=== PATIENT | female | born 1965 | race Caucasian/White ===

== ENCOUNTER 2017-12-23 07:58 | Emergency (ER) | payer BC ==
[~2017-12-23] VITALS: Ht 160 cm; Wt 109.5 kg
[2017-12-23 08:11] VITALS: TEMP 36.6; Ht 160 cm; Wt 109.5 kg
[2017-12-23 08:12] VITALS: O2SAT 97
[2017-12-23] MEDS ORDERED: GLIP-197 PO (08:32)
[2017-12-23] MEDS ORDERED: GLC/500 PO (08:32)
[2017-12-23] MEDS ORDERED: ROSU5TAB PO (08:32)
[2017-12-23] MEDS ORDERED: VALS160T58 PO (08:32)
[2017-12-23] MEDS ORDERED: LEVO25TA PO (08:32)
[2017-12-23] MEDS ORDERED: METO100T44 PO (08:32)
[2017-12-23 08:36] LABS: BASO % 0.3 %; BASO ABS # 0.02 K/uL (0-0.2); EOS % 2.5 %; EOS ABS # 0.19 K/uL (0-0.5); HEMOGLOBIN 13.4 g/dL (12.0-16.0); LYMPH % 17.2 %; LYMPH ABS # 1.32 K/uL (1.2-3.4); MEAN CELL VOLUME 87.4 fL (80-100); MEAN CORPUSCULAR HGB CONC 34.4 g/dl (32-36); MONO % 11.2 %; MONO ABS # 0.86 K/uL (0.11-0.59); NEUT % 67.5 %; NUCLEATED RED BLOOD CELL ABS 0.02 K/uL (0-0); PLATELET COUNT 264 K/uL (130-400); RED CELL DISTRIBUTION WIDTH CV 15.2 % (11.5-14.5); RED CELL DISTRIBUTION WIDTH SD 48.8 fL (36.4-46.3); WHITE BLOOD COUNT 7.69 K/uL (4.8-10.8)
--- NOTE | 2017-12-23 09:08 | EMERGENCY ROOM VISIT NOTE ---
History First contact with patient: 08:03 (Kiera Melendez M.D.) First contact with patient: 08:38 (Jeff Brown D.O.) Chief Complaint: HYPERTENSION Stated Complaint: HIGH BLOOD PRESSURE History of Present Illness 52F with a PMHx of hypothyroidism, HTN, DM2 who presents to the Emergency Room with complaints of facial flushing starting this morning around 3am. She feels that her blood pressure is elevated because in the doctors office she gets flushed whenever her blood pressure is check and it always come back high. Patient states she takes her BP meds regularly. Last took her meds around 4am today. She was recently diagnosed with DM2 and started on Metformin and Glipizide. She also states that her left arm felt "different", no numbness, tingling or pain, she just opens and closes it more often starting today. Patient also noticed a red kiera under her left eye which wasn't there yesterday. She did have a BM this AM, is not coughing, denies any significant straining with BM. Pt denies CP, denies SOB, denies HINES, denies photosensitivity. OBGYN: Gets regular periods, denies ever having menopausal symptoms. SHx: former smoker , no marijuana, no cocaine, does have 2 drinks of hard liquor per night and didn't skip her drinks yesterday evening. (Kiera Melendez M.D.) Review of Systems See HPI for pertinent positives and negatives. A total of ten systems were reviewed and were otherwise negative. Constitutional: No fever, No chills ENT: No hearing loss Respiratory: No cough, No sputum, No wheezing, No shortness of breath Cardiovascular: No chest pain Abdomen: No pain, No nausea, No vomiting, No diarrhea, No constipation Musculoskeletal: No joint pain, No muscle pain, No swelling, No calf pain Genitourinary - Female: No dysuria, No urinary frequency, No urinary urgency Neurologic: No memory loss, No weakness, No numbness/tingling, No vertigo, No balance problems Endocrine: No fatigue Integumentary: No rash (Kiera Melendez M.D.) Social History Smoking Status: Never Smoker (Kiera Melendez M.D.) Current/Historical Medications Scheduled Glipizide (Glipizide Er), 1 TAB PO AC Levothyroxine Sodium (Synthroid), 25 MCG PO DAILY Metformin Hcl (Glucophage), 500 MG PO QID Metoprolol Succ (Toprol Xl) (Toprol-Xl ), 100 MG PO DAILY Rosuvastatin Calcium (Crestor), 5 MG PO 2XWK Valsartan/Hctz (Diovan Hct 160MG/12.5MG), 2 TAB PO DAILY Physical Exam Vital Signs Date Time Temp Pulse Resp B/P (MAP) Pulse Ox O2 Delivery O2 Flow Rate FiO2 12/23/17 09:14 69 18 171/98 97 Room Air 12/23/17 08:50 78 18 188/110 97 Room Air 12/23/17 08:45 66 12/23/17 08:26 82 12/23/17 08:12 97 Room Air 12/23/17 08:11 36.6 83 18 224/119 97 Room Air (Jeff Brown D.Roland) Physical Exam Gen: No acute distress. HEENT: Head - normocephalic and atraumatic. There is a linear area of ecchymosis medial to the left eye. Pupils are equal, round, and reactive to light. Extraocular eye muscles are intact and sclera are anicteric. Ears - bilaterally patent canals with noninjected tympanic membranes and no evidence of hemotympanum. Nose - moist nasal mucosa without discharge. Mouth - moist buccal mucosa. Oropharynx is nonerythematous and there is no tonsillar exudate or edema noted. Neck: Supple; no JVD, nuchal rigidity, cervical lymphadenopathy, or auscultated bruits. Heart: Regular rate and rhythm. There is a normal S1 and S2 with no murmurs, clicks, or gallops appreciated. Lungs: Clear to auscultation bilaterally with no wheezes, rales, or rhonchi. Abdomen: Soft, completely nontender, nondistended, with good bowel sounds. There are no palpable pulsatile masses or hepatosplenomegaly. There is no guarding, rigidity, or rebound noted. Extremities: No evidence of cyanosis, clubbing, or edema. There are easily palpable peripheral pulses. Neuro:The patient is awake and alert, oriented to day, time, and place. Muscle strength is 5/5 in all 4 extremities. The patient has equal network associate strength and equal pedal push and pull. There are no cerebellar signs. Cranial nerves intact. Sensation intact to light touch over the lower extremities bilaterally. (Kiera Melendez M.D.) Medical Decision & Procedures ER Provider Diagnostic Interpretation: CHEST ONE VIEW PORTABLE HISTORY: 52 years-old Female chronic HTN, eval for cardiomegaly chronic hypertension COMPARISON: None available TECHNIQUE: Portable AP view of the chest FINDINGS: Cardiac silhouette appears mildly enlarged. No pneumothorax, pleural effusion, focal airspace consolidation or overt pulmonary edema. Mild right hemidiaphragm elevation with subsegmental right basilar atelectasis. Bones of the chest appear grossly intact. IMPRESSION: 1. No acute process of the chest. 2. Mild enlargement of the cardiac silhouette, likely accentuated by AP technique. (Kiera Melendez M.D.) Laboratory Results 12/23/17 08:15 Red Blood Count 4.46, Mean Corpuscular Volume 87.4, Mean Corpuscular Hemoglobin 30.0, Mean Corpuscular Hemoglobin Concent 34.4, Mean Platelet Volume 10.0, Neutrophils (%) (Auto) 67.5, Lymphocytes (%) (Auto) 17.2, Monocytes (%) (Auto) 11.2, Eosinophils (%) (Auto) 2.5, Basophils (%) (Auto) 0.3, Neutrophils # (Auto ) 5.20, Lymphocytes # (Auto) 1.32, Monocytes # (Auto) 0.86, Eosinophils # (Auto ) 0.19, Basophils # (Auto) 0.02 12/23/17 08:15 Test 12/23/17 08:15 12/23/17 08:20 White Blood Count 7.69 K/uL (4.8-10.8) Red Blood Count 4.46 M/uL (4.2-5.4) Hemoglobin 13.4 g/dL (12.0-16.0) Hematocrit 39.0 % (37-47) Mean Corpuscular Volume 87.4 fL (80-100) Mean Corpuscular Hemoglobin 30.0 pg (25-34) Mean Corpuscular Hemoglobin Concent 34.4 g/dl (32-36) Platelet Count 264 K/uL (130-400) Mean Platelet Volume 10.0 fL (7.4-10.4) Neutrophils (%) (Auto) 67.5 % Lymphocytes (%) (Auto) 17.2 % Monocytes (%) (Auto) 11.2 % Eosinophils (%) (Auto) 2.5 % Basophils (%) (Auto) 0.3 % Neutrophils # (Auto) 5.20 K/uL (1.4-6.5) Lymphocytes # (Auto) 1.32 K/uL (1.2-3.4) Monocytes # (Auto) 0.86 K/uL (0.11-0.59) Eosinophils # (Auto) 0.19 K/uL (0-0.5) Basophils # (Auto) 0.02 K/uL (0-0.2) RDW Standard Deviation 48.8 fL (36.4-46.3) RDW Coefficient of Variation 15.2 % (11.5-14.5) Immature Granulocyte % (Auto) 1.3 % Immature Granulocyte # (Auto) 0.10 K/uL (0.00-0.02) Nucleated RBC Absolute Count (auto) 0.02 K/uL (0-0) Nucleated Red Blood Cells % 0.2 % Anion Gap 8.0 mmol/L (3-11) Est Creatinine Clear Calc Drug Dose 83.3 ml/min Estimated GFR () 79.9 Estimated GFR (Non- 69.0 BUN/Creatinine Ratio 12.2 (10-20) Calcium Level 8.5 mg/dl (8.5-10.1) Total Bilirubin 0.6 mg/dl (0.2-1) Aspartate Amino Transf (AST/SGOT) 75 U/L (15-37) Alanine Aminotransferase (ALT/SGPT) 96 U/L (12-78) Alkaline Phosphatase 127 U/L (45-117) Total Protein 8.2 gm/dl (6.4-8.2) Albumin 3.6 gm/dl (3.4-5.0) Globulin 4.6 gm/dl (2.5-4.0) Albumin/Globulin Ratio 0.8 (0.9-2) Thyroid Stimulating Hormone (TSH) 4.400 uIu/ml (0.300-4.500) Bedside Troponin I < 0.030 ng/ml (0-0.045) (Mishock,Jeff, D.O.) Medical Decision The patient's care and disposition was discussed with Dr. Brown, Attending ED Physician. This is a 52F with flushing Differential diagnosis include menopause, hypertensive urgency, hypertensive emergency, benign hypertension, cardiovascular pathology, pheochromocytoma, electrolyte abnormality, renal disease, endorgan damage, as well as others were entertained. Triage Nursing notes were reviewed. ED Course included an extensive history and physical exam, labs and Chest X-ray. 8:15 - pt was seen and examined at beside. Initial orders were placed. 8:30 - case was discussed with Dr. Brown. 9:00am - pt was reexamined,stated her symptoms have resolved, BP rechecked - still elevated, larger cuff was placed. 9:30 - Reviewed labs, EKG and imaging with patient. She will need outpatient follow up for better HTN control, elevated LFTs and elevated sugars. Also talked to patient about pending FSH and possible menopausal symptoms. 10:00 - Talked to patient about FSH findings. The pt was informed about the findings as listed above. All questions were answered. Return instructions were outlined and the patient was discharged in good condition. The patient was referred to PCP for recheck of the current condition. (Kiera Melendez M.D.) Head Trauma GCS Score: 15 (Kiera Melendez M.D.) Impression Primary Impression: Hypertension Departure Information Dispostion Home / Self-Care Condition GOOD Referrals Miriam Tavares D.O. (PCP) Patient Instructions Hypertension Control, Hypertension Dc, My [facility], My[employer] Nutrition Fruit, My[employer] Nutrition Grains, My[employer] Nutrition Protein Foods, My[employer] Nutrition Vegetables, Nutrition Eating Healthy Quiz Additional Instructions Your EKG, chest X-ray and heart enzymes were normal. Your thyroid level was also normal. Your FSH - an enzyme that we test to check the functioning of your ovaries - was not significantly elevated. This means we cannot definitively say you are entering menopause or perimenopause. We found some incidental findings in your lab work that requires outpatient follow up, these include elevated liver enzymes, elevated blood sugars and elevated blood pressure. Please follow up with your PCP regarding these findings. Return to the ER if you experience a new onset headache that you would describe as the "worst headache of your life", or if you experience intractable vomiting , nausea or visual changes. Also return to the ER if you experience any chest pain or new onset shortness of breath. The best way to lower blood pressure is to lose weight by eating healthier and exercising. Information on blood pressure and weight control will be printed for you on discharge. Please read this information carefully. Resident Involvement: Resident Care Provided Care Provided: Adult [facility] (Kiera Melendez M.D.)
[2017-12-23 09:09] LABS: ALBUMIN 3.6 gm/dl (3.4-5.0); CALCIUM 8.5 mg/dl (8.5-10.1); CREATININE 0.96 mg/dl (0.60-1.20); POTASSIUM 3.8 mmol/L (3.5-5.1)
--- NOTE | 2017-12-23 09:17 | DIAGNOSTIC IMAGING REPORT ---
CHEST ONE VIEW PORTABLE HISTORY: 52 years-old Female chronic HTN, eval for cardiomegaly chronic hypertension COMPARISON: None available TECHNIQUE: Portable AP view of the chest FINDINGS: Cardiac silhouette appears mildly enlarged. No pneumothorax, pleural effusion, focal airspace consolidation or overt pulmonary edema. Mild right hemidiaphragm elevation with subsegmental right basilar atelectasis. Bones of the chest appear grossly intact. IMPRESSION: 1. No acute process of the chest. 2. Mild enlargement of the cardiac silhouette, likely accentuated by AP technique. The above report was generated using voice recognition software. It may contain grammatical, syntax or spelling errors. Electronically signed by: Tree Morales M.D. 12/23/2017 9:15 AM Dictated Date/Time: 12/23/2017 9:14 AM
[2017-12-23 09:20] LABS: TOTAL PROTEIN 8.2 gm/dl (6.4-8.2)
--- NOTE | 2017-12-23 10:18 | EMERGENCY ROOM VISIT NOTE ---
History Report prepared by Irlanda: Darrell Thomas Under the Supervision of: Dr. Jeff Brown D.O. First contact with patient: 08:38 Chief Complaint: HYPERTENSION Stated Complaint: HIGH BLOOD PRESSURE History of Present Illness The patient is a 52 year old female who presents to the Emergency Room with complaints of constant hypertension starting this morning around 0300. She states that her face is flushed, and she notes that whenever her face is flushed that means her blood pressure is elevated, though she did not take her pressure. The patient additionally states that she feels like she has to open and close her left hand more often, though she denies any tingling, numbness, or pain. She states that she additionally notes that she has a burst blood pressure near her eye, and she denies any trauma. The patient states that she took her medications this morning at 0400. Source of History: patient Onset: 0300 Position: other (generalized) Quality: other (hypertension) Timing: constant Note: Associated symptoms: Face is flushed, she has to open and close her left hand more often, burst blood vessel near her eye Review of Systems See HPI for pertinent positives & negatives. A total of 10 systems reviewed and were otherwise negative. Past Medical & Surgical Medical Problems: (1) HTN (hypertension) Social History Smoking Status: Never Smoker Marital Status: Occupation Status: employed Current/Historical Medications Scheduled Glipizide (Glipizide Er), 1 TAB PO AC Levothyroxine Sodium (Synthroid), 25 MCG PO DAILY Metformin Hcl (Glucophage), 500 MG PO QID Metoprolol Succ (Toprol Xl) (Toprol-Xl ), 100 MG PO DAILY Rosuvastatin Calcium (Crestor), 5 MG PO 2XWK Valsartan/Hctz (Diovan Hct 160MG/12.5MG), 2 TAB PO DAILY Allergies Coded Allergies: No Known Allergies (Unverified , 12/23/17) Physical Exam Vital Signs Date Time Temp Pulse Resp B/P (MAP) Pulse Ox O2 Delivery O2 Flow Rate FiO2 12/23/17 10:19 63 18 172/97 99 12/23/17 10:05 67 16 177/101 98 Room Air 12/23/17 09:14 69 18 171/98 97 Room Air 12/23/17 08:50 78 18 188/110 97 Room Air 12/23/17 08:45 66 12/23/17 08:26 82 12/23/17 08:12 97 Room Air 12/23/17 08:11 36.6 83 18 224/119 97 Room Air Physical Exam CONSTITUTIONAL/VITAL SIGNS: Reviewed / noted above. GENERAL: Non-toxic in appearance. INTEGUMENTARY: Warm, dry, and [place]. HEAD: Normocephalic. EYES: without scleral icterus or trauma. ENT/OROPHARYNX: clear and moist. LYMPHADENOPATHY/NECK: Is supple without lymphadenopathy or meningismus. RESPIRATORY: Lungs clear and equal. CARDIOVASCULAR: Regular rate and rhythm. GI/ABDOMEN: Soft and nontender. No organomegaly or pulsatile mass. No rebound or guarding. Normal bowel sounds. EXTREMITIES: Warm and well perfused. BACK: No CVA tenderness. NEUROLOGICAL: Intact without focal deficits. PSYCHIATRIC: normal affect. MUSCULOSKELETAL: Normally developed with good muscle tone. Medical Decision & Procedures ER Provider Diagnostic Interpretation: Radiology results as stated below per my review and radiologist interpretation: CHEST ONE VIEW PORTABLE HISTORY: 52 years-old Female chronic HTN, eval for cardiomegaly chronic hypertension COMPARISON: None available TECHNIQUE: Portable AP view of the chest FINDINGS: Cardiac silhouette appears mildly enlarged. No pneumothorax, pleural effusion, focal airspace consolidation or overt pulmonary edema. Mild right hemidiaphragm elevation with subsegmental right basilar atelectasis. Bones of the chest appear grossly intact. IMPRESSION: 1. No acute process of the chest. 2. Mild enlargement of the cardiac silhouette, likely accentuated by AP technique. The above report was generated using voice recognition software. It may contain grammatical, syntax or spelling errors. Electronically signed by: Tree Morales M.D. 12/23/2017 9:15 AM Dictated Date/Time: 12/23/2017 9:14 AM Laboratory Results 12/23/17 08:15 Red Blood Count 4.46, Mean Corpuscular Volume 87.4, Mean Corpuscular Hemoglobin 30.0, Mean Corpuscular Hemoglobin Concent 34.4, Mean Platelet Volume 10.0, Neutrophils (%) (Auto) 67.5, Lymphocytes (%) (Auto) 17.2, Monocytes (%) (Auto) 11.2, Eosinophils (%) (Auto) 2.5, Basophils (%) (Auto) 0.3, Neutrophils # (Auto ) 5.20, Lymphocytes # (Auto) 1.32, Monocytes # (Auto) 0.86, Eosinophils # (Auto ) 0.19, Basophils # (Auto) 0.02 12/23/17 08:15 Test 12/23/17 08:15 12/23/17 08:20 White Blood Count 7.69 K/uL (4.8-10.8) Red Blood Count 4.46 M/uL (4.2-5.4) Hemoglobin 13.4 g/dL (12.0-16.0) Hematocrit 39.0 % (37-47) Mean Corpuscular Volume 87.4 fL (80-100) Mean Corpuscular Hemoglobin 30.0 pg (25-34) Mean Corpuscular Hemoglobin Concent 34.4 g/dl (32-36) Platelet Count 264 K/uL (130-400) Mean Platelet Volume 10.0 fL (7.4-10.4) Neutrophils (%) (Auto) 67.5 % Lymphocytes (%) (Auto) 17.2 % Monocytes (%) (Auto) 11.2 % Eosinophils (%) (Auto) 2.5 % Basophils (%) (Auto) 0.3 % Neutrophils # (Auto) 5.20 K/uL (1.4-6.5) Lymphocytes # (Auto) 1.32 K/uL (1.2-3.4) Monocytes # (Auto) 0.86 K/uL (0.11-0.59) Eosinophils # (Auto) 0.19 K/uL (0-0.5) Basophils # (Auto) 0.02 K/uL (0-0.2) RDW Standard Deviation 48.8 fL (36.4-46.3) RDW Coefficient of Variation 15.2 % (11.5-14.5) Immature Granulocyte % (Auto) 1.3 % Immature Granulocyte # (Auto) 0.10 K/uL (0.00-0.02) Nucleated RBC Absolute Count (auto) 0.02 K/uL (0-0) Nucleated Red Blood Cells % 0.2 % Anion Gap 8.0 mmol/L (3-11) Est Creatinine Clear Calc Drug Dose 83.3 ml/min Estimated GFR () 79.9 Estimated GFR (Non- 69.0 BUN/Creatinine Ratio 12.2 (10-20) Calcium Level 8.5 mg/dl (8.5-10.1) Total Bilirubin 0.6 mg/dl (0.2-1) Aspartate Amino Transf (AST/SGOT) 75 U/L (15-37) Alanine Aminotransferase (ALT/SGPT) 96 U/L (12-78) Alkaline Phosphatase 127 U/L (45-117) Total Protein 8.2 gm/dl (6.4-8.2) Albumin 3.6 gm/dl (3.4-5.0) Globulin 4.6 gm/dl (2.5-4.0) Albumin/Globulin Ratio 0.8 (0.9-2) Thyroid Stimulating Hormone (TSH) 4.400 uIu/ml (0.300-4.500) Follicle Stimulating Hormone 10.20 IU/L Bedside Troponin I < 0.030 ng/ml (0-0.045) Laboratory results as stated above per my review. ECG Per My Interpretation Indication: other (hypertension) Rate (beats per minute): 80 Rhythm: normal sinus Findings: no ectopy, other (No ST elevation) ED Course 0838: Previous medical records were reviewed. The patient was evaluated in room B9 by the resident. A complete history and physical examination was performed. 0910: I evaluated the patient. 0944: On reevaluation, the patient is doing well. The resident discussed the results and findings with the patient. She verbalized agreement of the treatment plan. She was discharged home. Medical Decision the differential that was considered includes acute myocardial infarction, acute coronary syndrome, myocarditis, pericarditis, pericardial effusions / tamponade, esophageal perforation, thoracic aortic dissection, pulmonary embolism, pneumonia, pneumothorax, pancreatitis, shingles, acute cholecystitis, perforated abdominal viscus. This is a 52-year-old female who presents to the ED with a chief complaint of hypertension. The patient reports that she felt flushed in the face this morning and felt like there is something wrong. She checked her blood pressure was elevated. She came in for evaluation. She did take her blood pressure medicine at 4 AM this morning. Her initial blood pressure today was 224/119. When I saw the patient, the patient's blood pressure was 171/98. She was seen in conjunction with the resident. See that note for additional information. Her physical exam was normal. 12-lead EKG reveals a sinus rhythm rate of 80. CBC is normal. Troponin was negative. Chest x-ray is negative for acute disease. The patient was told the results of the test. She was felt to be stable for discharge and outpatient follow-up. Medication Reconcilliation Current Medication List: was personally reviewed by me Blood Pressure Screening Patient's blood pressure: Elevated blood pressure Blood pressure disposition: Referred to PCP Impression Primary Impression: Hypertension Scribe Attestation The scribe's documentation has been prepared under my direction and personally reviewed by me in its entirety. I confirm that the note above accurately reflects all work, treatment, procedures, and medical decision making performed by me. Departure Information Dispostion Home / Self-Care Referrals Miriam Tavares D.O. (PCP) Forms HOME CARE DOCUMENTATION FORM, IMPORTANT VISIT INFORMATION, WORK / SCHOOL INSTRUCTIONS Patient Instructions My [facility] Additional Instructions Your EKG, chest X-ray and heart enzymes were normal. Your thyroid level was also normal. Your FSH - an enzyme that we test to check the functioning of your ovaries - was not significantly elevated. This means we cannot definitively say you are entering menopause or perimenopause. We found some incidental findings in your lab work that requires outpatient follow up, these include elevated liver enzymes, elevated blood sugars and elevated blood pressure. Please follow up with your PCP regarding these findings. Return to the ER if you experience a new onset headache that you would describe as the "worst headache of your life", or if you experience intractable vomiting , nausea or visual changes. Also return to the ER if you experience any chest pain or new onset shortness of breath. The best way to lower blood pressure is to lose weight by eating healthier and exercising. Information on blood pressure and weight control will be printed for you on discharge. Please read this information carefully.
[2017-12-23 10:19] VITALS: BP 172/97; PULSE 63; O2SAT 99
== END 2017-12-23 10:21 | disposition home or self-care (01) ==
LOC: C.EDB 08:00
DX: I10 Essential (primary) hypertension (principal); Z79.84 Long term (current) use of oral hypoglycemic drugs; Z79.899 Other long term (current) drug therapy; E11.9 Type 2 diabetes mellitus without complications; Z87.891 Personal history of nicotine dependence

== ENCOUNTER 2021-05-06 00:34 | Inpatient (IN) ==
[2021-05-06] MEDS ORDERED: IPRATROPIUM BROMIDE/ALBUTEROL respimat INH INH STA (01:10)
[2021-05-06] MEDS ORDERED: ACETAMINOPHEN 1,000 MG/100 ML VIAL IV STA (01:10)
[2021-05-06] MEDS ORDERED: dexAMETHasone**PF** 10 MG/ML VIAL IV ONE (01:10)
[2021-05-06] MEDS ORDERED: guaiFENesin 600 MG TABCR PO STA (01:10)
[2021-05-06] MEDS ORDERED: SODIUM CHLORIDE 0.9% 1000ML 1,000 ML IV ONE (01:10)
[2021-05-06 02:16] LABS: Hematocrit (blood only) 36.7 % (37-47); Hemoglobin 12.8 g/dL (12.0-16.0); Immature Granulocytes # (auto) 0.05 K/uL (0.00-0.02); Lymphocytes # (auto) 0.34 K/uL (1.2-3.4); Lymphocytes % (auto) 6.5 %; Mean Corpuscular Hemoglobin 28.6 pg (25-34); Mean Corpuscular Hgb Conc 34.9 g/dL (32-36); Mean Corpuscular Volume 81.9 fL (80-100); Mean Platelet Volume 9.6 fL (7.4-10.4); Monocytes % (auto) 15.4 %; Neutrophils # (auto) 4.02 K/uL (1.4-6.5); Neutrophils % (auto) 77.1 %; Platelet Count 225 K/uL (130-400); RDW Standard Deviation 48.3 fL (36.4-46.3); Red Blood Count 4.48 M/uL (4.2-5.4); White Blood Count 5.21 K/uL (4.8-10.8)
[2021-05-06 02:27] LABS: INR 1.1 (0.9-1.1); Partial Thromboplastin Ratio 1.3; Partial Thromboplastin Time 34.9 Seconds (21.0-31.0); Prothrombin Time 10.8 Seconds (9.0-12.0)
[2021-05-06 02:50] LABS: Alanine Aminotransferase 15 U/L (12-78); Alkaline Phosphatase 93 U/L (45-117); Aspartate Aminotransferase 23 U/L (15-37); Bilirubin Direct 0.3 mg/dl (0-0.2); Bilirubin,Total 0.8 mg/dl (0.2-1); Blood Urea Nitrogen 11 mg/dl (7-18); Calcium 8.2 mg/dl (8.5-10.1); Carbon Dioxide 29 mmol/L (21-32); Chloride 82 mmol/L (98-107); Creatinine Clr Calc Pharmacy 108.2 ml/min; Est GFR (African American) 114.9 ml/min; Est GFR (Non-African American) 99.2 ml/min; Globulin 4.1 gm/dl (2.5-4.0); Glucose 216 mg/dl (70-99); Lipase 168 U/L (73-393); Magnesium 1.4 mg/dl (1.8-2.4); NT Pro B Type Natriuretic Pept 2295 pg/ml (0-900); Phosphorus 2.6 mg/dl (2.5-4.9); Potassium 3.6 mmol/L (3.5-5.1); Sodium 115 mmol/L (136-145); Total Protein 7.1 gm/dl (6.4-8.2); Troponin I < 0.015 ng/ml (0-0.045)
--- NOTE | 2021-05-06 02:53 | Emergency Department Note ---
Impression & Plan Hypoxia, Pneumonia due to COVID-19 virus, Hyponatremia, Hypomagnesemia ED Provider Note NAME: EMMA GUERRA AGE: 56 SEX: F ARRIVES VIA: Walk-In INFORMANT: Patient, ED PROVIDER(S): Rolly Correia MD CHIEF COMPLAINT: Shortness of breath, feverishness, cough and congestion. PLAN: Disposition: Admit MEDICAL DECISION MAKING: The patient is a pleasant 56-year-old woman with a past medical history of hypertension and, NIDDM 2, hyperlipidemia who presents to the emergency department with worsening shortness of breath that became severe tonight in the setting of developing cough, congestion, feverishness and body aches on Monday. She is not vaccinated for COVID-19. She denies any known COVID-19 exposures. 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 She denies any history of asthma, COPD or smoking. On arrival the patient is uncomfortable but no acute rest afebrile with O2 saturation 79% on room air upon arrival to triage placed on nasal cannula with improvement into the mid 90s. She has scattered wheezes and rhonchi. She appears clinically dry. EKG demonstrates ST and T wave abnormality without overt ST elevation. Chest x- ray demonstrates bilateral infiltrates consistent with multifocal pneumonia per my preliminary review. WBC, hemoglobin and platelets within normal limits. She does have lymphopenia to 0.34. Chemistry without metabolic acidosis. Sodium is 115 though corrects to 118 in given glucose of 216. Magnesium 1.4 with repletion initiated. Troponin negative/undetectable. BNP is elevated at 2200 so CTA of the chest was ordered to exclude PE. Lipase is not elevated. COVID-19 PCR was positive. The patient does agree with plan for admission for further management. She was treated with IV fluid hydration, dexamethasone and Combivent. Given patient is mentating normally will defer additional management of hyponatemia to admitting team. CTA chest pending. [facility]. Triage Nursing notes reviewed and agree them. Prior medical records reviewed Vital Signs: reviewed and remarkable for hypoxia. Differential diagnosis: Reactive airway disease, pneumonia, pneumothorax, COPD, CHF, infections, cardiac ischemia, pulmonary embolism, musculoskeletal, gastrointestinal, as well as other pathologies. ER treatment provided: See below. Diagnostics interpreted by me: ECG: Normal sinus rhythm, 61 bpm, no ectopy, ST and T wave abnormality without overt ST elevation. Cardiac Monitoring: An order for continuous cardiac monitoring was placed and demonstrated normal sinus rhythm, 61 bpm, no ectopy. Laboratory studies: See below Imaging studies: See below Consultation(s): Case was discussed with Dr. Kuo, [facility] hospitalist, who will evaluate the patient for admission. HPI: The patient is a pleasant 56-year-old woman with a past medical history of hypertension and, NIDDM 2, hyperlipidemia who presents to the emergency department with worsening shortness of breath that became severe tonight in the setting of developing cough, congestion, feverishness and body aches on Monday. She is not vaccinated for COVID-19. She denies any known COVID-19 exposures. 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 She denies any history of asthma, COPD or smoking. ROS: See above HPI for pertinent positives & negatives. A total of 10 systems reviewed and were otherwise negative. PAST MEDICAL HISTORY:See Below PAST SURGICAL HISTORY:See Below FAMILY HISTORY:See Below SOCIAL HISTORY:See Below HOME MEDICATIONS:See Below ALLERGIES:See Below VITALS:See Below PHYSICAL EXAMINATION: GENERAL: Awake, alert, uncomfortable-appearing, in no distress HENT: Normocephalic, atraumatic. Oropharynx with dry mucous membranes and otherwise unremarkable. EYES: Normal conjunctiva. Sclera non-icteric. NECK: Supple. No nuchal rigidity. FROM. No JVD. RESPIRATORY: Scattered wheezes and rhonchi. Mildly dyspneic without significant increased work of breathing. CARDIAC: Regular rate, normal rhythm. Extremities warm and well perfused. Pulses equal. ABDOMEN: Soft, non-distended. No tenderness to palpation. No rebound or guarding. No masses. RECTAL: Deferred. MUSCULOSKELETAL: Chest examination reveals no tenderness. The back is symmetrical on inspection without obvious abnormality. There is no CVA tenderness to palpation. No joint edema. LOWER EXTREMITIES: Calves are equal size bilaterally and non-tender. No edema. No discoloration. NEURO: Normal sensorium. No sensory or motor deficits noted. SKIN: No rash or jaundice noted. ED COURSE: Critical Care: I have personally spent greater than 35 minutes of critical care time in the direct management of this patient. This includes bedside care, interpretation of diagnostic studies, and testing, discussion with consultants, patient, and family members, and other required patient management activities. This 35 minutes is in excess of all separately billable procedures. Rolly Correia MD Past Med/Surg History Medical History HTN (hypertension) Type 2 diabetes mellitus Family History Other Family history non-contributory Social History Smoking Status: Never smoker Hx Alcohol Use: No Hx Substance Use: No Preferred Language: Setswana Communication Ability: Effective Integrated Marketing Intern Required: No Beliefs That Will Affect Care: None Current Living Situation: Family Other Information That Helps Us Care for You: No Feels Safe at Home: Yes Safety Concerns: Feels Safe At This Time Assistive Devices: Glasses Allergies Allergies Allergy/AdvReac Type Severity Reaction Status Date / Time No Known Allergies Allergy Unverified 05/06/21 01:54 Home Meds Home Medications Medication Instructions Recorded Confirmed amlodipine 5 mg tablet 5 mg PO QAM 05/06/21 05/06/21 glipizide 10 mg tablet, extended 10 mg PO DAILY 05/06/21 05/06/21 release 24 hr levothyroxine 88 mcg tablet 88 mcg PO DAILYBB 05/06/21 05/06/21 metformin 500 mg tablet,extended 2,000 mg PO DAILY 05/06/21 05/06/21 release 24 hr metoprolol succinate 100 mg 100 mg PO QAM 05/06/21 05/06/21 tablet,extended release 24 hr rosuvastatin 5 mg tablet 5 mg PO 2XWK 05/06/21 05/06/21 valsartan 160 2 tab PO QAM 05/06/21 05/06/21 mg-hydrochlorothiazide 12.5 mg tablet Results & Data (ED) Vital Signs Vital Signs - 24 hr 05/06/21 00:44 05/06/21 00:57 05/06/21 01:07 Temperature 36.9 C Temperature Source Temporal Artery Scan Pulse Rate 69 64 Respiratory Rate 26 H 23 Respiratory Effort / Characteristics SOB on Exertion Respiratory Depth Respiratory Pattern Tachypnea Blood Pressure 156/94 H Blood Pressure Mean 114 Blood Pressure Position Sitting Pulse Oximetry 79 L 82 L 96 Oxygen Delivery Method Room Air Room Air Nasal Cannula Oxygen Flow Rate 0 4 Sepsis Recent Fever Within 48 Hours No Sepsis New/Unexplained Change in Mental Status N/A Sepsis Action Taken by Nursing No Action Required Oxygen Flow Rate - Titration 4 Pulse Oximetry Post Tiitration 96 05/06/21 01:10 05/06/21 01:11 05/06/21 01:20 Temperature Temperature Source Pulse Rate 63 60 71 Respiratory Rate 27 H 26 H Respiratory Effort / Characteristics Respiratory Depth Normal Respiratory Pattern Blood Pressure Blood Pressure Mean Blood Pressure Position Pulse Oximetry 98 99 97 Oxygen Delivery Method Nasal Cannula Oxygen Flow Rate 4 4 4 Sepsis Recent Fever Within 48 Hours Sepsis New/Unexplained Change in Mental Status Sepsis Action Taken by Nursing Oxygen Flow Rate - Titration Pulse Oximetry Post Tiitration 05/06/21 01:30 05/06/21 01:40 05/06/21 01:50 Temperature Temperature Source Pulse Rate 61 61 67 Respiratory Rate 18 Respiratory Effort / Characteristics Respiratory Depth Respiratory Pattern Blood Pressure Blood Pressure Mean Blood Pressure Position Pulse Oximetry 97 97 96 Oxygen Delivery Method Oxygen Flow Rate 4 4 4 Sepsis Recent Fever Within 48 Hours Sepsis New/Unexplained Change in Mental Status Sepsis Action Taken by Nursing Oxygen Flow Rate - Titration Pulse Oximetry Post Tiitration 05/06/21 02:00 05/06/21 04:05 Temperature Temperature Source Pulse Rate 62 57 L Respiratory Rate 20 19 Respiratory Effort / Characteristics Respiratory Depth Respiratory Pattern Blood Pressure 122/85 Blood Pressure Mean 97 Blood Pressure Position Pulse Oximetry 98 99 Oxygen Delivery Method Nasal Cannula Oxygen Flow Rate 4 4 Sepsis Recent Fever Within 48 Hours Sepsis New/Unexplained Change in Mental Status Sepsis Action Taken by Nursing Oxygen Flow Rate - Titration Pulse Oximetry Post Tiitration Laboratory Data Attestation: I reviewed the patient's lab results. Result diagrams: 05/06/21 Unknown 05/06/21 Unknown Lab Results 05/06/21 05/06/21 05/06/21 Range/Units 02:25 02:25 04:12 Estimat Average Glucose 151 mg/dl Hemoglobin A1c 6.9 H (4.5-5.6) % COVID-19 Eval Order Covid19 at [facility] SARS-CoV-2 (PCR) POSITIVE A* (Negative) Administered Medications Amlodipine Besylate (Amlodipine Besylate 5 Mg Tab) 5 mg PO QAM RAEANN Stop: 06/05/21 08:59 Last Admin: 05/06/21 08:21 Dose: 5 mg Documented by: [id number] Enoxaparin Sodium (Enoxaparin Inj 40 Mg/0.4 Ml Syr) 40 mg SQ QAM [facility] Stop: 06/05/21 08:59 Last Admin: 05/06/21 08:21 Dose: 40 mg Documented by: [id number] Sodium Chloride (Nss) 1,000 mls @ 75 mls/hr IV .[id number] [facility] Stop: 06/05/21 11:59 Last Admin: 05/06/21 13:07 Dose: 75 mls/hr Documented by: [id number] Insulin Aspart (Insulin Aspart 100 Units/Ml 3 Ml Pen) 0 units SC ACHS RAEANN Stop: 06/05/21 05:44 Last Admin: 05/06/21 16:49 Dose: 5 units Documented by: [id number] Cosigned by: [id number] Admin: 05/06/21 13:29 Dose: 7 units Documented by: [id number] Cosigned by: [id number] Admin: 05/06/21 08:51 Dose: 5 units Documented by: [id number] Cosigned by: [id number] Levothyroxine Sodium (Levothyroxine Sodium 88 Mcg Tablet) 88 mcg PO DAILYBB [facility] Stop: 06/05/21 06:29 Last Admin: 05/06/21 06:17 Dose: 88 mcg Documented by: [id number] Metoprolol Succinate (Metoprolol Succ 25mg Ext Rel Tab) 75 mg PO QAM [facility] Stop: 06/05/21 08:59 Last Admin: 05/06/21 08:21 Dose: 75 mg Documented by: [id number] Rosuvastatin Calcium (Rosuvastatin Calcium 5 Mg Tab) 5 mg PO 2XWK [facility] Stop: 06/05/21 05:44 Last Admin: 05/06/21 06:19 Dose: Not Given Documented by: [id number] Sodium Chloride (Sodium Chloride 0.9% 10ml Flush) 30 ml IV Q24H RAEANN Stop: 05/10/21 12:01 Last Admin: 05/06/21 08:22 Dose: 30 ml Documented by: [id number] Discontinued Medications Albuterol (Ipratropium [place]/Albuterol Respimat Inh) 2 puffs INH NOW STA Stop: 05/06/21 01:11 Last Admin: 05/06/21 02:03 Dose: 2 puffs Documented by: [id number] Dexamethasone Sodium Phosphate (DexamethasonePf 10 Mg/Ml Vial) 10 mg IV NOW ONE Stop: 05/06/21 01:11 Last Admin: 05/06/21 02:03 Dose: 10 mg Documented by: [id number] Guaifenesin (Guaifenesin 600 Mg Tabcr) 600 mg PO NOW STA Stop: 05/06/21 01:11 Last Admin: 05/06/21 02:02 Dose: 600 mg Documented by: [id number] Sodium Chloride (Nss 1000ml) 1,000 mls @ 999 mls/hr IV .Q1H1M ONE Stop: 05/06/21 02:10 Last Infusion: 05/06/21 03:02 Dose: 0 mls/hr Documented by: [id number] Admin: 05/06/21 02:01 Dose: 999 mls/hr Documented by: [id number] Acetaminophen (Ofirmev) 1,000 mg in 100 mls @ 400 mls/hr IV NOW STA Stop: 05/06/21 01:24 Last Infusion: 05/06/21 02:36 Dose: 400 mls/hr Documented by: [id number] Admin: 05/06/21 01:40 Dose: 400 mls/hr Documented by: [id number] Magnesium Sulfate/Dextrose (Magnesium Sulfate / D5w) 1 gm in 100 mls @ 100 mls/hr IV Q1H RAEANN Stop: 05/06/21 04:58 Last Infusion: 05/06/21 06:15 Dose: 0 mls/hr Documented by: [id number] Admin: 05/06/21 05:15 Dose: 100 mls/hr Documented by: [id number] Infusion: 05/06/21 05:04 Dose: 0 mls/hr Documented by: [id number] Admin: 05/06/21 04:04 Dose: 100 mls/hr Documented by: [id number] Remdesivir 200 mg/ Sodium (Chloride) 250 mls @ 125 mls/hr IV ONE STA; Protocol Stop: 05/06/21 06:46 Last Infusion: 05/06/21 09:23 Dose: 0 mls/hr Documented by: [id number] Admin: 05/06/21 05:58 Dose: 125 mls/hr Documented by: [id number] Insulin Glargine (Insulin Glargine Solostar 100 Units/Ml 3 Ml Pen) 5 units SC NOW STA Stop: 05/06/21 04:59 Last Admin: 05/06/21 06:00 Dose: 5 units Documented by: [id number] Cosigned by: [id number] Ioversol (Optiray 320 125ml) 125 ml IV ONCE ONE Stop: 05/06/21 04:03 Last Admin: 05/06/21 04:03 Dose: 118 ml Documented by: [id number] Imaging Data Radiologist's Impression: Chest X-Ray 05/06/21 01:11 XR chest 1V portable CLINICAL HISTORY: Chest Pain COMPARISON STUDY: December 23, 2017 FINDINGS: No pneumothorax. No pleural effusion. Interval development of diffuse nodular opacities throughout bilateral lungs, mostly affecting right upper lobe. Interval widening of mediastinal deviation of trachea to the right. Cardiac silhouette is prominent. Pulmonary vasculature is obscured.. Osseous structures: Degenerative changes of the spine. IMPRESSION: 1. Interval development of nodular opacities throughout bilateral lungs, mostly affecting right upper lung and new mediastinal widening. Above-mentioned findings could be better seen on CT of the chest. ACT 112: Negative or not required by law. The above report was generated using voice recognition software. It may contain grammatical, syntax or spelling errors. Electronically signed by: Martha Yuan DO 05/06/2021 9:45 AM Chest CTA 05/06/21 02:58 CT angio chest PE protocol INDICATION: MN ^hypoxia, elevated BNP, r/o PE. TECHNIQUE: Multidetector row helical CT of the chest was performed. Coronal and sagittal reformations were obtained. Automated dose lowering techniques and/or adjustment according to patient size were utilized for this exam. Comparison: None available at the time of this dictation. FINDINGS: Lungs and pleura: Diffuse fibrotic changes and cyst formation are seen, right greater than left. Heart and pericardium: Cardiomegaly is seen with biatrial enlargement. Vessels: No evidence of pulmonary embolism. The pulmonary trunk measures 38 mm in diameter. Reflux of contrast into the hepatic veins noted. Mediastinum and lucita: Subcentimeter lymph nodes are seen. Chest wall and lower neck: Unremarkable. Abdomen: A hiatal hernia is seen. A tiny splenule is noted. Thickening of the adrenal glands noted bilaterally. Bones: Degenerative changes in the thoracic spine. IMPRESSION: 1. No evidence of pulmonary embolism. 2. Fibrotic changes of the lung and pulmonary hypertension. 3. Cardiomegaly and reflux of contrast into the hepatic veins which can be seen in heart failure. ACT 112: Negative or not required by law. Electronically signed by: Marshall Donnelly M.D. 05/06/2021 8:42 AM Discharge Plan Visit Data Chief Complaint: Respiratory Problems Stated Complaint: COVID SYMP STARTED LAST MONDAY,DIFF BREATHING ED Provider: Rolly Correia Discharge Problem: Hypoxia, Pneumonia due to COVID-19 virus, Hyponatremia, Hypomagnesemia
[2021-05-06 02:54] LABS: Albumin Globulin Ratio 0.7 (0.9-2)
[2021-05-06] MEDS ORDERED: OPTIRAY 320 125ml IV ONE (04:02)
[2021-05-06] MEDS: MAGNESIUM SULFATE / D5W 1 GM/100 ML BAG IV SCH ×2 (04:04→05:15)
[2021-05-06] MEDS ORDERED: REMDESIVIR 200 MG in SODIUM CHLORIDE 0.9% 210 ML IV STA (04:47)
--- NOTE | 2021-05-06 04:48 | History & Physical Report ---
Date of Service May 06, 2021 Assessment & Plan (1) Acute hypoxemic respiratory failure: Plan: Secondary to severe COVID-19 pneumonia Acute on chronic hyponatremia secondary to illness Home diuretic contributory HTN, slight elevated hyperlipidemia on statin Rx DM2 on oral medications, suboptimal control as of recent hemoglobin A1c of 8 last May 2020 hypothyroidism, euthyroid as of today's TSH Medical telemetry Supplemental O2 Decadron and Remdesivir indicated for severe COVID-19 pneumonia (Patient was counseled regarding potential adverse effects from Remdesivir therapy and provided with patient education sheet.) Recheck serum sodium after fluid bolus given at the ER Hyponatremia work-up Hold home diuretic for now Nephrology consult Re: Hyponatremia Basal insulin, ISS BG goal 1 10-1 40, carb count coverage, update hemoglobin A1c DVT prophylaxis. Lovenox subcu Full code Text document was generated using [employer] voice recognition software. It may contain grammatical or spelling errors. Kindly contact undersigned for clarification of any documentation item in question. History of Present Illness Chief Complaint: Cough, congestion, shortness of breath Primary Care Provider: Yohan Bean MD History obtained from patient and records. Medical history significant for HTN, hyperlipidemia, DM2 on oral medications, hypothyroidism, chronic hyponatremia, past tobacco abuse. 5 days history of junky cough although unable to expectorate, congestion, feverishness, and body aches. Worsening shortness of breath without chest pain. 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 Patient has not received COVID-19 vaccination. Poor appetite. Patient denies fluid retention/unusual leg swelling/weight gain. O2 sats 70s to 80s upon arrival at the ER. IV Decadron administered at the ER. 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 Allergies Allergy/AdvReac Type Severity Reaction Status Date / Time No Known Allergies Allergy Unverified 05/06/21 01:54 Home Medications Medication Instructions Recorded Confirmed Type amlodipine 5 mg tablet 5 mg PO QAM 05/06/21 05/06/21 History glipizide 10 mg tablet, extended 10 mg PO DAILY 05/06/21 05/06/21 History release 24 hr levothyroxine 88 mcg tablet 88 mcg PO DAILYBB 05/06/21 05/06/21 History metformin 500 mg tablet,extended 2,000 mg PO DAILY 05/06/21 05/06/21 History release 24 hr metoprolol succinate 100 mg 100 mg PO QAM 05/06/21 05/06/21 History tablet,extended release 24 hr rosuvastatin 5 mg tablet 5 mg PO 2XWK 05/06/21 05/06/21 History valsartan 160 2 tab PO QAM 05/06/21 05/06/21 History mg-hydrochlorothiazide 12.5 mg tablet Past Med/Surg History Medical History HTN (hypertension) Type 2 diabetes mellitus Family History Other Family history non-contributory Social History Smoking Status: Never smoker Hx Alcohol Use: No Hx Substance Use: No Preferred Language: Mongolian Communication Ability: Effective Dermatology Technician Required: No Beliefs That Will Affect Care: None Current Living Situation: Family Other Information That Helps Us Care for You: No Feels Safe at Home: Yes Safety Concerns: Feels Safe At This Time Assistive Devices: Glasses Review of Systems Review of Systems: As per HPI, all 10 systems reviewed, all other ROS negative Physical Exam Physical Exam: GENERAL: Comfortable, morbidly obese, slightly anxious, no respiratory distress SKIN: Normal color, warm HEENT: [place] palpebral conjunctivae, no ptosis, dry buccal mucosa NECK : Supple, short neck, no tenderness CHEST : Decreased breath sounds, occasional expiratory wheezes, no tenderness HEART : Bradycardic, no obvious murmurs ABDOMEN: Some distention, nontender EXTREMITIES : Minimal LE swelling, no LE tenderness, no other conspicuous deformities noted NEUROLOGIC : Coherent, no facial asymmetry, no other gross focality Results & Data Results & Data ([facility]) Vital Signs (Past 12 Hours) Vital Signs Temp Pulse Resp BP Pulse Ox 05/06/21 04:05 57 L 19 122/85 99 05/06/21 02:00 62 20 98 05/06/21 01:50 67 18 96 05/06/21 01:40 61 97 05/06/21 01:30 61 97 05/06/21 01:20 71 97 05/06/21 01:11 60 26 H 99 05/06/21 01:10 63 27 H 98 05/06/21 01:07 64 23 96 05/06/21 00:57 82 L 05/06/21 00:44 36.9 C 69 26 H 156/94 H 79 L Laboratory Results Laboratory Results WBC 5.21 K/uL (4.8-10.8) 05/06/21 Unknown RBC 4.48 M/uL (4.2-5.4) 05/06/21 Unknown Hgb 12.8 g/dL (12.0-16.0) 05/06/21 Unknown Hct 36.7 % (37-47) L 05/06/21 Unknown MCV 81.9 fL (80-100) 05/06/21 Unknown MCH 28.6 pg (25-34) 05/06/21 Unknown MCHC 34.9 g/dL (32-36) 05/06/21 Unknown RDW Std Deviation 48.3 fL (36.4-46.3) H 05/06/21 Unknown RDW Coeff of Lulu 16.0 % (11.5-14.5) H 05/06/21 Unknown Plt Count 225 K/uL (130-400) 05/06/21 Unknown MPV 9.6 fL (7.4-10.4) 05/06/21 Unknown Immature Gran % (Auto) 1.0 % 05/06/21 Unknown Neut % (Auto) 77.1 % 05/06/21 Unknown Lymph % (Auto) 6.5 % 05/06/21 Unknown [place] % (Auto) 15.4 % 05/06/21 Unknown Eos % (Auto) 0.0 % 05/06/21 Unknown Baso % (Auto) 0.0 % 05/06/21 Unknown Neut # (Auto) 4.02 K/uL (1.4-6.5) 05/06/21 Unknown Lymph # (Auto) 0.34 K/uL (1.2-3.4) L 05/06/21 Unknown [place] # (Auto) 0.80 K/uL (0.11-0.59) H 05/06/21 Unknown Eos # (Auto) 0.00 K/uL (0-0.5) 05/06/21 Unknown Baso # (Auto) 0.00 K/uL (0-0.2) 05/06/21 Unknown Immature Gran # (Auto) 0.05 K/uL (0.00-0.02) H 05/06/21 Unknown PT 10.8 Seconds (9.0-12.0) 05/06/21 Unknown INR 1.1 (0.9-1.1) 05/06/21 Unknown APTT 34.9 Seconds (21.0-31.0) H 05/06/21 Unknown PTT Ratio 1.3 05/06/21 Unknown Sodium 115 mmol/L (136-145) L* 05/06/21 Unknown Potassium 3.6 mmol/L (3.5-5.1) 05/06/21 Unknown Chloride 82 mmol/L (98-107) L 05/06/21 Unknown Carbon Dioxide 29 mmol/L (21-32) 05/06/21 Unknown Anion Gap 5.0 (3-11) 05/06/21 Unknown BUN 11 mg/dl (7-18) 05/06/21 Unknown Creatinine 0.68 mg/dl (0.6-1.2) 05/06/21 Unknown Est Cr Clr Drug Dosing 108.2 ml/min 05/06/21 Unknown Est GFR ( Amer) 114.9 ml/min 05/06/21 Unknown Est GFR (Non-Af Amer) 99.2 ml/min 05/06/21 Unknown BUN/Creatinine Ratio 16.0 (10-20) 05/06/21 Unknown Glucose 216 mg/dl (70-99) H 05/06/21 Unknown Calcium 8.2 mg/dl (8.5-10.1) L 05/06/21 Unknown Phosphorus 2.6 mg/dl (2.5-4.9) 05/06/21 Unknown Magnesium 1.4 mg/dl (1.8-2.4) L 05/06/21 Unknown Total Bilirubin 0.8 mg/dl (0.2-1) 05/06/21 Unknown Direct Bilirubin 0.3 mg/dl (0-0.2) H 05/06/21 Unknown AST 23 U/L (15-37) 05/06/21 Unknown ALT 15 U/L (12-78) 05/06/21 Unknown Alkaline Phosphatase 93 U/L (45-117) 05/06/21 Unknown Troponin I < 0.015 ng/ml (0-0.045) 05/06/21 Unknown NT-Pro-B Natriuret Pep 2295 pg/ml (0-900) H 05/06/21 Unknown Total Protein 7.1 gm/dl (6.4-8.2) 05/06/21 Unknown Albumin 3.0 gm/dl (3.4-5.0) L 05/06/21 Unknown Globulin 4.1 gm/dl (2.5-4.0) H 05/06/21 Unknown Albumin/Globulin Ratio 0.7 (0.9-2) L 05/06/21 Unknown Lipase 168 U/L (73-393) 05/06/21 Unknown TSH 2.510 uIu/ml (0.300-4.500) 05/06/21 Unknown COVID-19 Eval Order Covid19 at [facility] 05/06/21 02:25 SARS-CoV-2 (PCR) POSITIVE (Negative) A* 05/06/21 02:[address] chest initial read: No PE. Enlarged pulmonaryartery, although arterial hypertension Mildlyaneurysmal ascending aorta 4.0 cm. No evidence of leak. Coronarycalcifications. Mediastinal adenopathy. Cystic/fibrotic changes bilaterally, especiallyin the right upper lobe. Superimposed patchyairspace disease/groundglass opacities bilaterally. Mayrepresent infectious/inflammatoryprocess. EKG as per my interpretation rate 60, NSR, RAD, T wave abnormalities inferior and anterolateral leads
[2021-05-06] MEDS ORDERED: INSULIN GLARGINE SOLOSTAR 100 UNITS/ML 3 ML PEN SC STA (04:58)
[2021-05-06] MEDS ORDERED: LORazepam 0.5 MG/1 ML VIAL IV PRN (05:45)
[2021-05-06] MEDS ORDERED: DEXTROSE 50% 50 ML SYRINGE IV PRN (05:45)
[2021-05-06] MEDS ORDERED: GLUCAGON FOR INJ 1 MG VIAL SQ PRN (05:45)
[2021-05-06] MEDS ORDERED: PROMETHAZINE HCL 12.5 MG in SODIUM CHLORIDE 0.9% 50 ML IV PRN (05:45)
[2021-05-06] MEDS ORDERED: ALBUTEROL HFA 8 GM INHALER INH PRN (05:45)
[2021-05-06] MEDS ORDERED: CARBOHYDRATES FOR HYPOGLYCEMIA PO PRN (05:45)
[2021-05-06] MEDS ORDERED: GLUCOSE 40% GEL 15 GM TUBE PO PRN (05:45)
[2021-05-06] MEDS ORDERED: ACETAMINOPHEN 325 MG TAB PO PRN (05:45)
[2021-05-06] MEDS ORDERED: GLUCOSE 10 TABS/TUBE PO PRN (05:45)
[2021-05-06] MEDS: LEVOTHYROXINE SODIUM 88 MCG TABLET PO SCH (06:17)
[2021-05-06] MEDS: ROSUVASTATIN CALCIUM 5 MG TAB PO SCH (06:19)
[2021-05-06 07:50] LABS: Estimated Average Glucose 151 mg/dl; Hemoglobin A1C 6.9 % (4.5-5.6)
[2021-05-06] MEDS: ENOXAPARIN INJ 40 MG/0.4 ML SYR SQ SCH (08:21)
[2021-05-06] MEDS: amLODIPine BESYLATE 5 MG TAB PO SCH (08:21)
[2021-05-06] MEDS: METOPROLOL SUCC 25MG EXT REL TAB PO SCH (08:21)
[2021-05-06] MEDS: SODIUM CHLORIDE 0.9% 10ML FLUSH IV SCH (08:22)
--- NOTE | 2021-05-06 08:44 | CT Scan Report ---
CT angio chest PE protocol INDICATION: MN ^hypoxia, elevated BNP, r/o PE. TECHNIQUE: Multidetector row helical CT of the chest was performed. Coronal and sagittal reformations were obtained. Automated dose lowering techniques and/or adjustment according to patient size were u tilized for this exam. Comparison: None available at the time of this dictation. FINDINGS: Lungs and pleura: Diffuse fibrotic changes and cyst formation are seen, right greater than left. Heart and pericardium: Cardiomegaly is seen with biatrial enlargement. Vessels: No evidence of pulmonary embolism. The pulmonary trunk measures 38 mm in diameter. Reflux of contrast into the hepatic veins noted. Mediastinum and lucita: Subcentimeter lymph nodes are seen. Chest wall and lower neck: Unremarkable. Abdomen: A hiatal hernia is seen. A tiny splenule is noted. Thickening of the adrenal glands noted bi laterally. Bones: Degenerative changes in the thoracic spine. IMPRESSION: 1. No evidence of pulmonary embolism. 2. Fibrotic changes of the lung and pulmonary hypertension. 3. Cardiomegaly and reflux of contrast into the hepatic veins which can be seen in heart failure. ACT 112: Negative or not required by law. Electronically signed by: Marshall Donnelly M.D. 05/06/2021 8:42 AM
[2021-05-06] MEDS: INSULIN ASPART 100 UNITS/ML 3 ML PEN SC SCH ×4 (08:51→22:15)
--- NOTE | 2021-05-06 09:47 | XRay Report ---
XR chest 1V portable CLINICAL HISTORY: Chest Pain COMPARISON STUDY: December 23, 2017 FINDINGS: No pneumothorax. No pleural effusion. Interval development of diffuse nodular opacities throughout bilateral lungs, mostly affecting right upper lobe. Interval widening of mediastinal deviation of trachea to the right. Cardiac silhouette is prominent. Pulmonary vasculature is obscured.. Osseous structures: Degenerative changes of the spine. IMPRESSION: 1. Interval development of nodular opacities throughout bilateral lungs, mostly affecting right uppe r lung and new mediastinal widening. Above-mentioned findings could be better seen on CT of the chest . ACT 112: Negative or not required by law. The above report was generated using voice recognition software. It may contain grammatical, syntax o r spelling errors. Electronically signed by: Martha Yuan DO 05/06/2021 9:45 AM
[2021-05-06 10:54] LABS: Appearance Urine Clear (Clear); Bacteria Urine Automated 3+ (Negative); Bilirubin Urine Negative (Negative); Blood Urine Negative (Negative); Cast Urine Automated 0 /lpf (0-5); Color Urine Yellow; Glucose Urine UA 2+ (Negative); Ketones Urine Negative (Negative); Leukocyte Esterase Urine Negative (Negative); Nitrite Urine Negative (Negative); Protein Urine Trace (Negative); RBC Urine Automated 0-4 /hpf (0-4); Specific Gravity Urine 1.011 (1.000-1.030); Urobilinogen Urine Negative (Negative)
[2021-05-06] MEDS ORDERED: SODIUM CHLORIDE 0.9% 1000ML 1,000 ML IV SCH (12:15)
--- NOTE | 2021-05-06 12:38 | Consultation Report ---
NEPHROLOGY CONSULTATION NOTE DATE OF CONSULTATION: 05/06/2021. REASON FOR CONSULTATION: Critical hyponatremia with a serum sodium of 115 in a COVID-19 positive pat ient. HISTORY OF PRESENT ILLNESS: The patient is a 56-year-old female who has known history of chronic hyp onatremia. In fact, her last blood work from primary care office in May 2020 showed a serum sodi um of 129. The patient does take hydrochlorothiazide 12.5 mg daily. The patient presented to the [facility] because of increasing shortness of breath. She was found to have COVID-19 positive with sever e COVID-19 pneumonia. She has been given oxygen as well as Decadron and remdesivir. She was not vac cinated. PAST MEDICAL AND SURGICAL HISTORY: Includes hypertension; hyperlipidemia; type 2 diabetes, mild type , on metformin; hypothyroidism; history of chronic mild hyponatremia; past tobacco abuse. MEDICATIONS: At home include levothyroxine, amlodipine, Crestor, glipizide, valsartan/hydrochlorothi azide 160/12.5 daily, metoprolol, metformin, Claritin. Inpatient medication list was also reviewed. REVIEW OF SYSTEMS: Positive for productive cough, but unable to expectorate, body aches, fever, wors ening shortness of breath, and hypoxia. FAMILY HISTORY: Positive for leukemia, heart disease, Parkinson's. PERSONAL AND SOCIAL HISTORY: Past tobacco abuse. No recent alcohol. ALLERGIES: List reviewed. HOME MEDICATIONS: List reviewed as well as inpatient medication list. PHYSICAL EXAMINATION: GENERAL: Middle-aged white female who appears to be in some mild respiratory distress. She is awake , alert, oriented x3. HEENT: Mucous membrane is moist. NECK: Supple. VITAL SIGNS: Blood pressure 146/88, pulse rate 60, temperature 37 degrees Celsius, 95% on 2 liters n jany cannula. CHEST: Bilateral basal crackles. Decreased breath sounds. HEART: S1 and S2, regular. ABDOMEN: Soft, nontender, obese. EXTREMITIES: Show no edema. LABORATORY TESTS: Show serum sodium of 115 checked 2 times, potassium 3.6, chloride 82. Normal kidn ey function with a BUN of 11 and creatinine of 0.68, glucose 216, calcium 8.2. Serum osmolality 247, urine osmolality 160. Urine sodium 17. IMAGING DATA: CT chest and chest x-ray also reviewed and shows no evidence of pulmonary embolism, fi brotic changes, pulmonary hypertension. Findings consistent with COVID-19 pneumonia. ASSESSMENT AND PLAN: A 56-year-old female admitted with five days history of COVID symptoms and was found to have COVID-19 positive with COVID pneumonia requiring hospitalization. I have been consulte d for hyponatremia. Hyponatremia: She has known history of hyponatremia as stated earlier in HPI. Even back in May 2020, she had a serum sodium of 129. At home, she was taking hydrochlorothiazide, which obviously ne eds to be stopped now as well as forever. Urine osmolality was on the low side, which is consistent with excessive fluid intake, but inadequate solid food intake. She admitted drinking quite a bit, bu t not eating much because of poor appetite. RECOMMENDATIONS: 1. Continue to hold hydrochlorothiazide and also do not restart at the time of discharge. 2. Normal saline at 80 mL per hour. 3. Free fluid restriction at 1500 mL per day. 4. BMP again in 4 hours during the daytime. Once the serum sodium is higher than 120, we will check less frequently. 5. Continue to follow. Thank you very much for the consult. Job ID: [id number]
[2021-05-06 12:51] LABS: BUN Creatinine Ratio 10.6 (10-20); Calcium 7.8 mg/dl (8.5-10.1); Creatinine Clr Calc Pharmacy 108.2 ml/min; Est GFR (African American) 114.9 ml/min; Est GFR (Non-African American) 99.2 ml/min; Potassium 3.7 mmol/L (3.5-5.1)
--- NOTE | 2021-05-06 13:01 | Electrocardiogram Report ---
Test Reason : Blood Pressure : / mmHG Vent. Rate : 062 BPM Atrial Rate : 062 BPM P-R Int : 170 ms QRS Dur : 086 ms QT Int : 452 ms P-R-T Axes : 045 096 -35 degrees QTc Int : 458 ms Poor data quality, interpretation may be adversely affected Normal sinus rhythm Rightward axis Abnormal ECG When compared with ECG of 23-DEC-2017 08:10, T wave inversion now evident in Inferior leads T wave inversion now evident in Anterior leads Confirmed by Alfredo Giron ([id number]) on 05/06/2021 1:01:01 PM Referred By: REFERRED SELF Confirmed By:Alfredo Giron
[2021-05-06] MEDS: SODIUM CHLORIDE 0.9% 1,000 ML IV SCH ×2 (13:07→23:04)
--- NOTE | 2021-05-06 15:03 | Communication Note ---
Date of Service: May 06, 2021 Patient was seen and examined today. Reports she feels better than she came in with. Reports that shortness of breath is improved. Patient lives with her son who also got tested today and reports he is also likely positive. Currently patient is on 2 L of nasal cannula. Does not use any nasal cannula oxygen at home. Patient is non-smoker. No prior history of any respiratory disease. Continue Decadron/remdesivir. Sodium at 115. Appreciate nephrology input. Continue holding hydrochlorothiazide. Continue maintenance IV fluids. BMP every 4 hours.
[2021-05-06 17:05] LABS: BUN Creatinine Ratio 12.4 (10-20); Calcium 8.3 mg/dl (8.5-10.1); Creatinine Clr Calc Pharmacy 113.1 ml/min; Est GFR (African American) 116.7 ml/min; Est GFR (Non-African American) 100.7 ml/min; Potassium 3.6 mmol/L (3.5-5.1)
[2021-05-06 22:24] LABS: BUN Creatinine Ratio 13.2 (10-20); Calcium 8.3 mg/dl (8.5-10.1); Creatinine Clr Calc Pharmacy 108.2 ml/min; Est GFR (African American) 114.9 ml/min; Est GFR (Non-African American) 99.2 ml/min; Potassium 3.6 mmol/L (3.5-5.1)
[2021-05-07] MEDS: LEVOTHYROXINE SODIUM 88 MCG TABLET PO SCH (05:46)
[2021-05-07] MEDS: ROSUVASTATIN CALCIUM 5 MG TAB PO SCH (05:46)
[2021-05-07 07:49] LABS: Hemoglobin 12.7 g/dL (12.0-16.0); Immature Granulocytes # (auto) 0.04 K/uL (0.00-0.02); Immature Granulocytes % (auto) 0.7 %; Lymphocytes # (auto) 0.71 K/uL (1.2-3.4); Lymphocytes % (auto) 12.8 %; Mean Corpuscular Hemoglobin 28.3 pg (25-34); Mean Corpuscular Hgb Conc 34.3 g/dL (32-36); Mean Corpuscular Volume 82.6 fL (80-100); Monocytes # (auto) 0.79 K/uL (0.11-0.59); Monocytes % (auto) 14.3 %; Neutrophils # (auto) 3.99 K/uL (1.4-6.5); Neutrophils % (auto) 72.2 %; Platelet Count 210 K/uL (130-400); RDW Coefficient of Variation 16.3 % (11.5-14.5); RDW Standard Deviation 49.6 fL (36.4-46.3); Red Blood Count 4.48 M/uL (4.2-5.4); White Blood Count 5.53 K/uL (4.8-10.8)
[2021-05-07 08:20] LABS: Albumin Level 2.9 gm/dl (3.4-5.0); BUN Creatinine Ratio 10.1 (10-20); Calcium 8.2 mg/dl (8.5-10.1); Creatinine Clr Calc Pharmacy 114.9 ml/min; Est GFR (African American) 117.3 ml/min; Est GFR (Non-African American) 101.2 ml/min; Magnesium 1.8 mg/dl (1.8-2.4); Potassium 3.5 mmol/L (3.5-5.1)
[2021-05-07 08:23] LABS: Albumin Globulin Ratio 0.7 (0.9-2); Bilirubin,Total 0.7 mg/dl (0.2-1); Total Protein 6.9 gm/dl (6.4-8.2)
--- NOTE | 2021-05-07 09:27 | Nephrology Progress Note ---
Date of Service May 07, 2021 Assessment & Plan Admission and Anticipated Discharge Date Admission Date: May 06, 2021 Subjective No new issues. PHYSICAL EXAMINATION: GENERAL: Middle-aged white female who appears to be in some mild respiratory distress. She is awake, alert, oriented x3. HEENT: Mucous membrane is moist. NECK: Supple. CHEST: Bilateral basal crackles. Decreased breath sounds. HEART: S1 and S2, regular. ABDOMEN: Soft, nontender, obese. EXTREMITIES: Show no edema. LABORATORY TESTS: Reviewed. IMAGING DATA: CT chest and chest x-ray also reviewed and shows no evidence of pulmonary embolism, fibrotic changes, pulmonary hypertension. Findings consistent with COVID-19 pneumonia. ASSESSMENT AND PLAN: A 56-year-old female admitted with five days history of COVID symptoms and was found to have COVID-19 positive with COVID pneumonia requiring hospitalization. I have been consulted for hyponatremia. Hyponatremia: She has known history of hyponatremia as stated earlier in HPI. Even back in May 2020, she had a serum sodium of 129. At home, she was taking hydrochlorothiazide, which obviously needs to be stopped now as well as forever. Urine osmolality was on the low side, which is consistent with excessive fluid intake, but inadequate solid food intake. She admitted drinking quite a bit, but not eating much because of poor appetite. RECOMMENDATIONS: 1. Continue to hold hydrochlorothiazide and also do not restart at the time of discharge. 2. Slightly higher rate of coorection. Change to d5w --500 ml to slow down the rate. Goal is to have 133-135 by tomorrow AM--+18 in 48 hrs. 3. Free fluid restriction at 1500 mL per day. 4. BMP again around 2 PM again. Maybe able to restart NS after that. 5. Continue to follow. Results & Data ([facility]) Vital Signs (Past 12 Hours) Vital Signs Temp Pulse Pulse Resp BP Pulse Ox 05/07/21 09:19 36.9 C 56 L 20 126/81 93 05/07/21 03:30 36.7 C 56 L 16 128/65 93 05/06/21 23:04 36.8 C 54 L 18 108/73 94 05/06/21 22:59 52 L
[2021-05-07] MEDS: INSULIN ASPART 100 UNITS/ML 3 ML PEN SC SCH ×4 (09:30→20:37)
[2021-05-07] MEDS: INSULIN GLARGINE SOLOSTAR 100 UNITS/ML 3 ML PEN SC SCH (09:30)
[2021-05-07] MEDS: amLODIPine BESYLATE 5 MG TAB PO SCH (09:38)
[2021-05-07] MEDS: METOPROLOL SUCC 25MG EXT REL TAB PO SCH (09:39)
[2021-05-07] MEDS: dexAMETHasone 6 MG in SYRINGE 0 ML IV SCH (09:40)
[2021-05-07] MEDS: ENOXAPARIN INJ 40 MG/0.4 ML SYR SQ SCH (09:40)
[2021-05-07] MEDS ORDERED: DEXTROSE 5% 500 ML IV SCH (10:15)
--- NOTE | 2021-05-07 11:34 | Hospitalist Progress Note ---
Date of Service May 07, 2021 Assessment & Plan (1) Acute hypoxemic respiratory failure: Plan: Secondary to severe COVID-19 pneumonia. See plan below. (2) Pneumonia due to COVID-19 virus: Plan: Continues on Decadron and remdesivir daily for severe Covid pneumonia. Continue oxygen supplementation and supportive care efforts as needed. Prone as tolerated. (3) Hyponatremia: Plan: Likely secondary to HCTZ use. She has been treated with fluids per nephrology with an improvement in sodium. However, sodium level hollie from 115-128 overnight (was 124 just prior to 115 reading), therefore, fluids will be changed to dextrose at this time with a repeat check of sodium at 1400. We will continue to adjust fluids as needed for goal 133-135 by tomorrow morning continue free fluid restriction of 1500 mils per day. Indefinitely stop HCTZ. Patient verbalized understanding with intent to comply. (4) E. coli UTI: Plan: Patient notably having some increased dribbling, denies dysuria. Positive E. coli UTI. Rocephin added pending speciation (5) HTN (hypertension): Plan: Has a history of hypertension, however blood pressure has been within the normal range off valsartan HCT. If needed we will add back the ARB component will indefinitely stop the HCTZ. She continues on amlodipine 5 mg daily (6) Obesity: Plan: Weight loss recommended, obesity is a risk factor for complications of Covid pneumonia (7) Hypothyroidism: Plan: Continue Synthroid per home regimen. (8) DMII (diabetes mellitus, type 2): Plan: A1c 6.9 reflecting good control overall. Patient denies any complications of diabetes and reports being on Metformin for the last couple of years. Continue carb correction with NovoLog and minimal glargine dose. Currently euglycemic. (9) DVT prophylaxis: Plan: Lovenox Full code Disposition-patient informs me she is leaving to home tomorrow. With this in mind we will order two-step in preparation for oxygen needs for the morning DO Neri Perez Hospitalist Admission and Anticipated Discharge Date Admission Date: May 06, 2021 Subjective 56-year-old well-controlled diabetic female presented with COVID pneumonia She reports no symptoms today and denies shortness of breath. She is oxygenating 93% on 3 L/min. She also had hyponatremia with a sodium of 115 which is now 128 likely secondary to hydrochlorothiazide use She had no elevation of troponin but had ST changes seen on EKG which are persistent this morning. She continues to have no chest pain this entire admission and does have a history of hypertension. We discussed the importance of an outpatient work-up with her primary care doctor Dr. Bean. Consideration of a stress test would be important. She informs me that she is leaving tomorrow Review of Systems Review of Systems: At least ten systems were reviewed and negative except as indicated in HPI above. Physical Exam Physical Exam: CONSTITUTIONAL: obese, vitals as above, generally well- appearing EYES: normal conjunctivae, no scleral icterus ENT: external ear and nose normal, MMM RESPIRATORY: coarse rhonchi throughout, no wheezes, normal respiratory effort CARDIOVASCULAR: regular rate and rhythm, S1 and 2 heard without murmurs, gallops or rubs, no JVD, no peripheral edema CHEST: inspection of chest was normal GASTROINTESTINAL: soft, nontender, ND, no guarding. MUSCULOSKELETAL: strength 5/5 throughout, head is normocephalic and atraumatic SKIN: warm and dry NEUROLOGIC: CN 2-12 grossly intact, no sensory deficit, normal cognition, normal speech, no tremor, no gross focal deficits. PSYCHIATRIC: alert cooperative and oriented to person, place and time. Results & Data Results & Data ([facility]) Vital Signs (Past 12 Hours) Vital Signs Temp Pulse Resp BP Pulse Ox 05/07/21 09:19 36.9 C 56 L 20 126/81 93 05/07/21 03:30 36.7 C 56 L 16 128/65 93 Laboratory Results Short CBC 05/07/21 Range/Units 07:18 WBC 5.53 (4.8-10.8) K/uL Hgb 12.7 (12.0-16.0) g/dL Hct 37.0 (37-47) % Plt Count 210 (130-400) K/uL BMP 05/06/21 05/06/21 05/06/21 12:24 16:41 21:35 Sodium 118 L* 122 L 124 L Potassium 3.7 3.6 3.6 Chloride 84 L 87 L 90 L Carbon Dioxide 26 28 29 BUN 7 8 9 Creatinine 0.68 0.65 0.68 Glucose 251 H 179 H 153 H Calcium 7.8 L 8.3 L 8.3 L 05/07/21 07:18 Sodium 128 L Potassium 3.5 Chloride 93 L Carbon Dioxide 29 BUN 6 L Creatinine 0.64 Glucose 136 H Calcium 8.2 L Liver Function 05/07/21 Range/Units 07:18 Total Bilirubin 0.7 (0.2-1) mg/dl AST 31 (15-37) U/L ALT 32 (12-78) U/L Alkaline Phosphatase 113 (45-117) U/L Albumin 2.9 L (3.4-5.0) gm/dl Medications Administered Current Inpatient Medications Acetaminophen (Acetaminophen 325 Mg Tab) 650 mg PO Q4H PRN PRN Reason: Pain or Fever Stop: 06/05/21 05:44 Albuterol (Albuterol Hfa 8 Gm Inhaler) 2 puffs INH Q2H PRN PRN Reason: sob/wheeze Stop: 06/05/21 05:44 Amlodipine Besylate (Amlodipine Besylate 5 Mg Tab) 5 mg PO QAM RAEANN Stop: 06/05/21 08:59 Last Admin: 05/07/21 09:38 Dose: 5 mg Documented by: Dextrose (Dextrose 50% 50 Ml Syringe) 25 - 50 ml IV UD PRN; Protocol PRN Reason: Hypoglycemia Protocol Stop: 06/05/21 05:44 Enoxaparin Sodium (Enoxaparin Inj 40 Mg/0.4 Ml Syr) 40 mg SQ QAM RAEANN Stop: 06/05/21 08:59 Last Admin: 05/07/21 09:40 Dose: 40 mg Documented by: Glucagon (Glucagon For Inj 1 Mg Vial) 1 mg SQ UD PRN; Protocol PRN Reason: Hypoglycemia Protocol Stop: 06/05/21 05:44 Glucose (Glucose 10 Tabs/Tube) 4 - 8 tabs PO UD PRN; Protocol PRN Reason: Hypoglycemia Protocol Stop: 06/05/21 05:44 Glucose (Glucose 40% Gel 15 Gm Tube) 15 - 30 gm PO UD PRN; Protocol PRN Reason: Hypoglycemia Protocol Stop: 06/05/21 05:44 Remdesivir 100 mg/ Sodium (Chloride) 250 mls @ 250 mls/hr IV Q24H RAEANN; Protocol Stop: 05/10/21 12:59 Lorazepam (Ativan) 0.5 mg in 1 mls @ 1 mls/min IV Q4H PRN PRN Reason: Anxiety/Agitation Stop: 06/05/21 05:44 Promethazine HCl 12.5 mg/ (Sodium Chloride) 50.5 mls @ 202 mls/hr IV Q6H PRN PRN Reason: Nausea And Vomiting Stop: 06/05/21 05:44 Dexamethasone 6 mg/ Syringe 1.5 mls @ 1 mls/min IV DAILY RAEANN Stop: 06/06/21 08:59 Last Admin: 05/07/21 09:40 Dose: 1 mls/min Documented by: Ceftriaxone Sodium 2,000 mg/ (Dextrose) 70 mls @ 100 mls/hr IV Q24H [facility]; Protocol Stop: 05/12/21 10:59 Dextrose (D5w) 500 mls @ 80 mls/hr IV .Q6H15M [facility] Stop: 05/07/21 16:29 Last Admin: 05/07/21 10:34 Dose: 80 mls/hr Documented by: Insulin Aspart (Insulin Aspart 100 Units/Ml 3 Ml Pen) 0 units SC ACHS [facility] Stop: 06/05/21 05:44 Last Admin: 05/07/21 09:30 Dose: 2 units Documented by: Insulin Glargine (Insulin Glargine Solostar 100 Units/Ml 3 Ml Pen) 5 units SC DAILY [facility] Stop: 06/06/21 08:59 Last Admin: 05/07/21 09:30 Dose: 5 units Documented by: Levothyroxine Sodium (Levothyroxine Sodium 88 Mcg Tablet) 88 mcg PO DAILYBB [facility] Stop: 06/05/21 06:29 Last Admin: 05/07/21 05:46 Dose: 88 mcg Documented by: Metoprolol Succinate (Metoprolol Succ 25mg Ext Rel Tab) 75 mg PO QAM [facility] Stop: 06/05/21 08:59 Last Admin: 05/07/21 09:39 Dose: Not Given Documented by: Miscellaneous (Carbohydrates For Hypoglycemia ) 15 - 30 gm PO UD PRN PRN Reason: Hypoglycemia Protocol Stop: 06/05/21 05:44 Rosuvastatin Calcium (Rosuvastatin Calcium 5 Mg Tab) 5 mg PO 2XWK [facility] Stop: 06/05/21 05:44 Last Admin: 05/07/21 05:46 Dose: Not Given Documented by: Sodium Chloride (Sodium Chloride 0.9% 10ml Flush) 30 ml IV Q24H RAEANN Stop: 05/10/21 12:01 Last Admin: 05/06/21 08:22 Dose: 30 ml Documented by:
[2021-05-07] MEDS: cefTRIAXone SODIUM 2,000 MG in DEXTROSE 5% 50 ML IV SCH (12:30)
[2021-05-07] MEDS: REMDESIVIR 100 MG in SODIUM CHLORIDE 0.9% 230 ML IV SCH (12:30)
[2021-05-07] MEDS: SODIUM CHLORIDE 0.9% 10ML FLUSH IV SCH (13:48)
--- NOTE | 2021-05-07 15:23 | Electrocardiogram Report ---
Test Reason : Blood Pressure : / mmHG Vent. Rate : 057 BPM Atrial Rate : 057 BPM P-R Int : 160 ms QRS Dur : 084 ms QT Int : 442 ms P-R-T Axes : 012 104 019 degrees QTc Int : 430 ms Sinus bradycardia Rightward axis Abnormal ECG When compared with ECG of 06-MAY-2021 01:56, Nonspecific T wave abnormality has replaced inverted T waves in Inferior leads Confirmed by Alfredo Giron ([id number]) on 05/07/2021 3:23:36 PM Referred By: REFERRED SELF Confirmed By:Alfredo Giron
[2021-05-07 17:07] LABS: Calcium 8.2 mg/dl (8.5-10.1); Creatinine Clr Calc Pharmacy 87.4 ml/min; Est GFR (African American) 88.8 ml/min; Est GFR (Non-African American) 76.6 ml/min; Potassium 3.9 mmol/L (3.5-5.1)
[2021-05-07 17:20] LABS: Beta-Hydroxybutyrate 1.23 mg/dl (0.2-2.81)
[2021-05-08] MEDS: ROSUVASTATIN CALCIUM 5 MG TAB PO SCH (05:24)
[2021-05-08] MEDS: LEVOTHYROXINE SODIUM 88 MCG TABLET PO SCH (05:24)
[2021-05-08] MEDS: dexAMETHasone 6 MG in SYRINGE 0 ML IV SCH (08:20)
[2021-05-08] MEDS: ENOXAPARIN INJ 40 MG/0.4 ML SYR SQ SCH (08:21)
[2021-05-08] MEDS: amLODIPine BESYLATE 5 MG TAB PO SCH (08:22)
[2021-05-08] MEDS: METOPROLOL SUCC 25MG EXT REL TAB PO SCH (08:22)
[2021-05-08] MEDS: INSULIN ASPART 100 UNITS/ML 3 ML PEN SC SCH ×2 (08:53→12:31)
[2021-05-08] MEDS: INSULIN GLARGINE SOLOSTAR 100 UNITS/ML 3 ML PEN SC SCH (08:54)
[2021-05-08] MEDS: cefTRIAXone SODIUM 2,000 MG in DEXTROSE 5% 50 ML IV SCH (12:08)
[2021-05-08] MEDS: REMDESIVIR 100 MG in SODIUM CHLORIDE 0.9% 230 ML IV SCH (12:09)
[2021-05-08] MEDS: SODIUM CHLORIDE 0.9% 10ML FLUSH IV SCH (12:09)
[2021-05-08 12:41] LABS: BUN Creatinine Ratio 10.2 (10-20); Calcium 8.7 mg/dl (8.5-10.1); Creatinine Clr Calc Pharmacy 98.3 ml/min; Est GFR (African American) 103.1 ml/min; Est GFR (Non-African American) 88.9 ml/min; Potassium 3.4 mmol/L (3.5-5.1)
--- NOTE | 2021-05-08 12:41 | Nephrology Progress Note ---
Date of Service May 08, 2021 Assessment & Plan (1) Hyponatremia: Plan: She has known history of hyponatremia, In May 2020, she had a serum sodium of 129. At home, she was taking hydrochlorothiazide, which obviously needs to be stopped now as well as forever. Urine osmolality was on the low side, which is consistent with excessive fluid intake, but inadequate solid food intake. She admitted drinking quite a bit, but not eating much because of poor appetite. -BNP was not done today, alerted nursing staff about this but she wants to leave AMA. -Continue to hold hydrochlorothiazide and also do not restart at the time of discharge. -Goal WAS to have 133-135 by toDAY AM--+18 in 48 hrs. - Continue on . Free fluid restriction at 1500 mL per day. -We will need D5W if overcorrects, sodium 12 hourly. -Continue to follow. Admission and Anticipated Discharge Date Admission Date: May 06, 2021 Subjective Patient wants to leave AMA. Comfortable, no new issues -Labs not done today. Review of Systems Review of Systems: All systems reviewed & are unremarkable except as noted in Subjective Physical Exam Physical Exam: GENERAL: Middle-aged white female who appears to be in some mild respiratory distress. She is awake, alert, oriented x3. HEENT: Mucous membrane is moist. NECK: Supple. CHEST: Bilateral basal crackles. Decreased breath sounds. HEART: S1 and S2, regular. ABDOMEN: Soft, nontender, obese. EXTREMITIES: Show no edema. Results & Data ([facility]) Vital Signs (Past 12 Hours) Vital Signs Temp Pulse Pulse Pulse Pulse Pulse Pulse 05/08/21 12:18 63 72 73 64 05/08/21 12:07 36.8 C 64 05/08/21 08:28 37.7 C H 66 05/08/21 07:23 65 05/08/21 03:05 36.6 C 57 L Resp Resp Resp Resp Resp BP Pulse Ox 05/08/21 12:18 18 20 18 18 05/08/21 12:07 18 137/85 93 05/08/21 08:28 20 153/88 H 92 05/08/21 07:23 05/08/21 03:05 18 131/71 94 Pulse Ox Pulse Ox Pulse Ox Pulse Ox 05/08/21 12:18 96 93 96 86 L 05/08/21 12:07 05/08/21 08:28 05/08/21 07:23 05/08/21 03:05 Laboratory Results 05/07/21 07:18
--- NOTE | 2021-05-08 13:28 | Discharge Summary ---
Date of Service May 08, 2021 Admission HPI Per Admitting Provider History obtained from patient and records. Medical history significant for HTN, hyperlipidemia, DM2 on oral medications, hypothyroidism, chronic hyponatremia, past tobacco abuse. 5 days history of junky cough although unable to expectorate, congestion, feverishness, and body aches. Worsening shortness of breath without chest pain. 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 Patient has not received COVID-19 vaccination. Poor appetite. Patient denies fluid retention/unusual leg swelling/weight gain. O2 sats 70s to 80s upon arrival at the ER. IV Decadron administered at the ER. 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 coli UTI Hypertension Discharge Exam CONSTITUTIONAL: obese, vitals as above, generally well-appearing EYES: normal conjunctivae, no scleral icterus ENT: external ear and nose normal, MMM RESPIRATORY: coarse rhonchi in URL only,-improved from yesterday, no wheezes, normal respiratory effort CARDIOVASCULAR: regular rate and rhythm, S1 and 2 heard without murmurs, gallops or rubs, no JVD, no peripheral edema CHEST: inspection of chest was normal GASTROINTESTINAL: soft, nontender, ND, no guarding. MUSCULOSKELETAL: strength 5/5 throughout, head is normocephalic and atraumatic SKIN: warm and dry NEUROLOGIC: CN 2-12 grossly intact, no sensory deficit, normal cognition, normal speech, no tremor, no gross focal deficits. PSYCHIATRIC: alert cooperative and oriented to person, place and time. Discharge Data Allergies Allergy/AdvReac Type Severity Reaction Status Date / Time No Known Allergies Allergy Unverified 05/06/21 01:54 Consultations 05/06/21 03:51 ED Decision to Admit Stat 05/06/21 05:45 Consult Nephrology Routine Ordered Studies Laboratory Results WBC 5.53 K/uL (4.8-10.8) 05/07/21 07:18 RBC 4.48 M/uL (4.2-5.4) 05/07/21 07:18 Hgb 12.7 g/dL (12.0-16.0) 05/07/21 07:18 Hct 37.0 % (37-47) 05/07/21 07:18 MCV 82.6 fL (80-100) 05/07/21 07:18 MCH 28.3 pg (25-34) 05/07/21 07:18 MCHC 34.3 g/dL (32-36) 05/07/21 07:18 RDW Std Deviation 49.6 fL (36.4-46.3) H 05/07/21 07:18 RDW Coeff of Lulu 16.3 % (11.5-14.5) H 05/07/21 07:18 Plt Count 210 K/uL (130-400) 05/07/21 07:18 MPV 9.0 fL (7.4-10.4) 05/07/21 07:18 Immature Gran % (Auto) 0.7 % 05/07/21 07:18 Neut % (Auto) 72.2 % 05/07/21 07:18 Lymph % (Auto) 12.8 % 05/07/21 07:18 [place] % (Auto) 14.3 % 05/07/21 07:18 Eos % (Auto) 0.0 % 05/07/21 07:18 Baso % (Auto) 0.0 % 05/07/21 07:18 Neut # (Auto) 3.99 K/uL (1.4-6.5) 05/07/21 07:18 Lymph # (Auto) 0.71 K/uL (1.2-3.4) L 05/07/21 07:18 [place] # (Auto) 0.79 K/uL (0.11-0.59) H 05/07/21 07:18 Eos # (Auto) 0.00 K/uL (0-0.5) 05/07/21 07:18 Baso # (Auto) 0.00 K/uL (0-0.2) 05/07/21 07:18 Immature Gran # (Auto) 0.04 K/uL (0.00-0.02) H 05/07/21 07:18 PT 10.8 Seconds (9.0-12.0) 05/06/21 Unknown INR 1.1 (0.9-1.1) 05/06/21 Unknown APTT 34.9 Seconds (21.0-31.0) H 05/06/21 Unknown PTT Ratio 1.3 05/06/21 Unknown Sodium 128 mmol/L (136-145) L 05/08/21 11:10 Potassium 3.4 mmol/L (3.5-5.1) L 05/08/21 11:10 Chloride 91 mmol/L (98-107) L 05/08/21 11:10 Carbon Dioxide 31 mmol/L (21-32) 05/08/21 11:10 Anion Gap 6.0 (3-11) 05/08/21 11:10 BUN 8 mg/dl (7-18) 05/08/21 11:10 Creatinine 0.76 mg/dl (0.6-1.2) 05/08/21 11:10 Est Cr Clr Drug Dosing 98.3 ml/min 05/08/21 11:10 Est GFR ( Amer) 103.1 ml/min 05/08/21 11:10 Est GFR (Non-Af Amer) 88.9 ml/min 05/08/21 11:10 BUN/Creatinine Ratio 10.2 (10-20) 05/08/21 11:10 Glucose 167 mg/dl (70-99) H 05/08/21 11:10 POC Glucose 179 mg/dl (70-99) H 05/08/21 11:40 Estimat Average Glucose 151 mg/dl 05/06/21 04:12 Hemoglobin A1c 6.9 % (4.5-5.6) H 05/06/21 04:12 Osmolality 247 mOsm/kg (280-300) L 05/06/21 Unknown Calcium 8.7 mg/dl (8.5-10.1) 05/08/21 11:10 Phosphorus 2.6 mg/dl (2.5-4.9) 05/06/21 Unknown Magnesium 1.8 mg/dl (1.8-2.4) 05/07/21 07:18 Total Bilirubin 0.7 mg/dl (0.2-1) 05/07/21 07:18 Direct Bilirubin 0.3 mg/dl (0-0.2) H 05/06/21 Unknown AST 31 U/L (15-37) 05/07/21 07:18 ALT 32 U/L (12-78) 05/07/21 07:18 Alkaline Phosphatase 113 U/L (45-117) 05/07/21 07:18 Troponin I < 0.015 ng/ml (0-0.045) 05/06/21 Unknown NT-Pro-B Natriuret Pep 2295 pg/ml (0-900) H 05/06/21 Unknown Total Protein 6.9 gm/dl (6.4-8.2) 05/07/21 07:18 Albumin 2.9 gm/dl (3.4-5.0) L 05/07/21 07:18 Globulin 4.0 gm/dl (2.5-4.0) 05/07/21 07:18 Albumin/Globulin Ratio 0.7 (0.9-2) L 05/07/21 07:18 Lipase 168 U/L (73-393) 05/06/21 Unknown Beta-Hydroxybutyric Acd 1.23 mg/dl (0.2-2.81) 05/07/21 16:18 TSH 2.510 uIu/ml (0.300-4.500) 05/06/21 Unknown Urine Color Yellow 05/06/21 10:40 Urine Appearance Clear (Clear) 05/06/21 10:40 Urine pH 6.0 (4.5-7.5) 05/06/21 10:40 Ur Specific [place] 1.011 (1.000-1.030) 05/06/21 10:40 Urine Protein Trace (Negative) H 05/06/21 10:40 Urine Glucose (UA) 2+ (Negative) H 05/06/21 10:40 Urine Ketones Negative (Negative) 05/06/21 10:40 Urine Blood Negative (Negative) 05/06/21 10:40 Urine Nitrite Negative (Negative) 05/06/21 10:40 Urine Bilirubin Negative (Negative) 05/06/21 10:40 Urine Urobilinogen Negative (Negative) 05/06/21 10:40 Ur Leukocyte Esterase Negative (Negative) 05/06/21 10:40 Urine WBC (Auto) 1-5 /hpf (0-5) 05/06/21 10:40 Urine RBC (Auto) 0-4 /hpf (0-4) 05/06/21 10:40 U Hyaline Cast (Auto) 0 /lpf (0-5) 05/06/21 10:40 U Epithel Cells (Auto) 10-20 /lpf (0-5) H 05/06/21 10:40 Urine Bacteria (Auto) 3+ (Negative) H 05/06/21 10:40 Urine Osmolality 160 mOsm/kg (500-800) L 05/06/21 10:40 Ur Random Sodium 17 mmol/L 05/06/21 10:40 COVID-19 Eval Order Covid19 at [facility] 05/06/21 02:25 SARS-CoV-2 (PCR) POSITIVE (Negative) A* 05/06/21 02:25 Impressions Chest X-Ray 05/06/21 01:11 XR chest 1V portable CLINICAL HISTORY: Chest Pain COMPARISON STUDY: December 23, 2017 FINDINGS: No pneumothorax. No pleural effusion. Interval development of diffuse nodular opacities throughout bilateral lungs, mostly affecting right upper lobe. Interval widening of mediastinal deviation of trachea to the right. Cardiac silhouette is prominent. Pulmonary vasculature is obscured.. Osseous structures: Degenerative changes of the spine. IMPRESSION: 1. Interval development of nodular opacities throughout bilateral lungs, mostly affecting right upper lung and new mediastinal widening. Above-mentioned findings could be better seen on CT of the chest. ACT 112: Negative or not required by law. The above report was generated using voice recognition software. It may contain grammatical, syntax or spelling errors. Electronically signed by: Martha Yuan DO 05/06/2021 9:45 AM Chest CTA 05/06/21 02:58 CT angio chest PE protocol INDICATION: MN ^hypoxia, elevated BNP, r/o PE. TECHNIQUE: Multidetector row helical CT of the chest was performed. Coronal and sagittal reformations were obtained. Automated dose lowering techniques and/or adjustment according to patient size were utilized for this exam. Comparison: None available at the time of this dictation. FINDINGS: Lungs and pleura: Diffuse fibrotic changes and cyst formation are seen, right greater than left. Heart and pericardium: Cardiomegaly is seen with biatrial enlargement. Vessels: No evidence of pulmonary embolism. The pulmonary trunk measures 38 mm in diameter. Reflux of contrast into the hepatic veins noted. Mediastinum and lucita: Subcentimeter lymph nodes are seen. Chest wall and lower neck: Unremarkable. Abdomen: A hiatal hernia is seen. A tiny splenule is noted. Thickening of the adrenal glands noted bilaterally. Bones: Degenerative changes in the thoracic spine. IMPRESSION: 1. No evidence of pulmonary embolism. 2. Fibrotic changes of the lung and pulmonary hypertension. 3. Cardiomegaly and reflux of contrast into the hepatic veins which can be seen in heart failure. ACT 112: Negative or not required by law. Electronically signed by: Marshall Donnelly M.D. 05/06/2021 8:42 AM Hospital Course (1) Acute hypoxemic respiratory failure: (2) Pneumonia due to COVID-19 virus: (3) Hyponatremia: (4) E. coli UTI: Patient notably having some increased dribbling, denie dysuria. Positive E. coli UTI. Rocephin added pending speciation (5) HTN (hypertension): (6) Obesity: (7) DMII (diabetes mellitus, type 2): 56-year-old female presented with acute respiratory failure secondary to Covid pneumonia. She was started on Decadron and remdesivir daily. Sodium was noted to be 115 and HCTZ was held. Nephrology was consulted and recommended continued hold on the hydrochlorothiazide without restarting at time of discharge. Normal saline was initiated and a free fluid restriction was also initiated 1.5 L/day. Sodium trended up to 128 at time of discharge. Patient was asymptomatic and feeling well. She was also found to have an E. coli UTI and was placed on Rocephin empirically. She was subsequently discharged on a course of cefdinir. Despite the fact she was still requiring oxygen she wished to leave the hospital. Therefore, a two-step evaluation was performed requiring that she use 2 L/min of supplemental oxygen continuously 24 hours a day. She was educated on how to utilize a pulse oximetry to keep her oxygen saturation greater than 90% at all times. She was found to be taking her oxygen off and trialing how she felt, but was educated against this. She was told if she did take her oxygen off to keep a pulse oximeter on at all times and please put the oxygen back on in case her oxygen saturation dropped less than 90%. She verbalized understanding with intent to comply. Close primary care follow-up was recommended. Strict avoidance of HCTZ was recommended. Again patient verbalized understanding. Of importance, a CT angiogram of the chest was performed revealing no evidence of PE but also revealing fibrotic changes of the lung with pulmonary hypertension. Follow-up with pulmonology as recommended as outpatient. Total Time Total Time Spent Total Time Spent (In Minutes): 60 Discharge Plan Discharge Items Patient Disposition: Home - Self-Care Reason For Visit: RESO FAILURE, COVID, HYPONATREMIA Discharge Diagnosis: Acute hypoxemic respiratory failure secondary to COVID-19 pneumonia Hyponatremia likely secondary to thiazide use E. coli UTI Hypertension Condition on Discharge: Good Activity: Resume your previous activity Non-emergency contact: Primary Care Provider Call non-emergency contact if: you have any medication questions, your symptoms worsen, your pain is not controlled, your pain is worsening, your pain is unusual for you, your pain is concerning for you, you have a fever and your rectal temperature is above 100.4 Follow-up/Referrals: Yohan Bean MD [Primary Care Provider] - Diet: Regular Addtl Attending Provider Instructions: Please take all medications as instructed on discharge as below. You were found to have a urinary tract infection and have been given a short course of antibiotics to complete. Please complete the entire course of antibiotics and if you have any issues please contact your primary care doctor. You have been diagnosed with COVID-19 pneumonia. A repeat chest x-ray in 4 weeks is recommended to ensure complete resolution of pneumonia. It is important that you continue on your oxygen given to you at discharge to maintain an oxygen saturation via pulse oximeter of 90% or greater at all times. Please purchase a pulse oximeter to have with you at all times. It is recommended that you follow-up with your primary care doctor within a week of discharge to ensure you are still doing well, repeat your blood work checking your electrolytes and renal function (basic metabolic panel), and repeat your blood pressure off the thiazide diuretic. It is recommended you continue to stay off the thiazide diuretic as this was likely the cause of your sodium going critically low. Please continue to maintain a 1.5 L fluid restriction per nephrology recommendations. Please continue to follow the CDC guidelines regarding Covid isolation which states you should remain on home isolation until you are symptom-free and at least 10 days beyond the initiation of symptoms. Please continue to follow all masking guidelines and social distancing recommendations beyond this time. Additionally, please discuss with your primary care doctor the best time to receive your Covid vaccination. It was a pleasure taking care of you! Please call if you have any questions or problems. You can reach a [facility] hospitalist on duty at [facility] 24 hours a day by calling [phone]. Take care of yourself. Enma Martinez DO [facility] Hospitalist Pending Studies at Discharge: No Stand-Alone Forms: My [facility] Medications and DC Order Prescriptions: New (DME) Oxygen Home Liters Per Minute See Rx Instructions .Route Qty: 1 RF: 0 valsartan 160 mg tablet 160 mg PO DAILY Qty: 30 RF: 0 codeine-guaifenesin 10-100 mg/5 mL liquid 10 ml PO Q6H PRN (Reason: cough) Qty: 120 RF: 0 cefdinir 300 mg capsule 300 mg PO BID Qty: 10 RF: 0 Continued metoprolol succinate 100 mg tablet extended release 24 hr 100 mg PO QAM RF: 0 amlodipine 5 mg tablet 5 mg PO QAM RF: 0 levothyroxine 88 mcg tablet 88 mcg PO DAILYBB RF: 0 metformin 500 mg tablet extended release 24 hr 2,000 mg PO DAILY RF: 0 glipizide 10 mg tablet extended release 24hr 10 mg PO DAILY RF: 0 rosuvastatin 5 mg tablet 5 mg PO 2XWK RF: 0 Discontinued valsartan-hydrochlorothiazide 160-12.5 mg tablet 2 tab PO QAM RF: 0 Discharge Orders: Discharge Order (Routine); Ordered 05/08/21 Ordered By: Enma Liz/Other Patient Handouts: High Blood Sugar (Hyperglycemia), Hypoglycemia (Low Blood Sugar), Managing Type 2 Diabetes Admission Data Admit Date/Time: 05/06/21 04:52 Attending Provider: Enma Martinez Admit Provider: Bennie Kuo Primary Care Provider: Yohan Bean Other Providers: Bennie Kuo ; Louise Germain ; Higinio Zarco ; Joslyn Gabriel ; Juliana Betancourt ; José Haro ; Leah Florez
[2021-05-08 15:50] VITALS: BP 129/85; PULSE 60; TEMP 98.1; O2SAT 95
== END 2021-05-08 16:45 | disposition home or self-care (01) | DRG 177 ==
LOC: ED 00:34 → EDINP 04:52 → SUATTDRO 04:52 → 2W 21:21
DX: Z79.84 Long term (current) use of oral hypoglycemic drugs; E03.9 Hypothyroidism, unspecified; U07.1 COVID-19; E11.9 Type 2 diabetes mellitus without complications; N39.0 Urinary tract infection, site not specified; Z68.41 Body mass index [BMI] 40.0-44.9, adult; E83.42 Hypomagnesemia; Z79.890 Hormone replacement therapy; B96.20 Unspecified Escherichia coli [E. coli] as the cause of diseases classified elsewhere; Z79.899 Other long term (current) drug therapy; E87.1 Hypo-osmolality and hyponatremia; J96.01 Acute respiratory failure with hypoxia; E78.5 Hyperlipidemia, unspecified; J12.82 Pneumonia due to coronavirus disease 2019; E66.9 Obesity, unspecified; Z87.891 Personal history of nicotine dependence; I10 Essential (primary) hypertension

== ENCOUNTER 2022-07-23 19:24 | Inpatient (IN) ==
[2022-07-23] MEDS ORDERED: NITROGLYCERIN SL 0.4 MG/TAB TAB SL STA (19:44)
--- NOTE | 2022-07-23 19:46 | Emergency Department Note ---
Impression & Plan Hypoxia ADMIT ED Provider Note HPI: The patient is a 57-year-old female with history of pulmonary hypertension, on 3 L nasal cannula oxygen at baseline, presents emergency department with chief complaint of worsening shortness of breath over the past 5 days. On arrival here to the ED the patient is saturating at 83% on her baseline nasal cannula oxygen with tachypnea. Patient denies any chest pain but states she does get some discomfort when she coughs. Patient denies any nausea or vomiting. On arrival to the ED the patient is alert, he is placed on nonrebreather mask with improvement in her oxygen saturations 94%. ROS: -Pulmonary: Dyspnea, hypoxia *10 point review systems was conducted and is otherwise negative unless stated above *Outpatient medications and allergy history reviewed PE: General: Alert, obese, mild distress secondary to increased work of breathing HEENT: Normocephalic, trachea midline Eyes: Extraocular eye movement is intact, no scleral erythema Pulmonary: Diminished bilaterally without crackles or wheezing Cardio: Regular rate and rhythm GI: Abdomen is soft, nontender : No suprapubic tenderness MSK: No evidence of trauma or malformation of the extremities, 2+ PE b/l Skin: No evidence of rash Neuro: Alert, no focal deficits Psychiatric: Cooperative compliance monitor: - An order was placed for continuous cardiac monitoring - Patient was noted to be in sinus rhythm with a rate of 90 EKG: Rate: 86 Rhythm: Normal sinus rhythm Intervals: Within normal limits ST changes: No ST elevation Time: 1946 Interventions provided in ED: -BiPAP placed, sublingual nitroglycerin, DuoNeb breathing treatment, Solu-Medrol Medical Decision Making: Patient presented to the emergency department hypoxia, she has a longstanding history of respiratory failure secondary to pulmonary fibrosis and is on baseline nasal cannula oxygen. Shortly after arrival patient was placed on BiPAP, IV was established, she was maintained on monitor technician. Oxygenation and work of breathing did improve with BiPAP. Venous blood gas does not show any evidence of hypercarbic respiratory failure, pH is slightly alkalotic, lab work shows evidence of hyponatremia and hypochloremia, BNP is elevated, chest x- ray shows changes consistent with pulmonary fibrosis. On my reassessment the patient appears much improved, EKG does not show any evidence of acute ischemic changes, troponin is slightly elevated at 35, I suspect this is likely demand in regards to the patient's respiratory failure and likely an element of fluid overload. We will hold off on Lasix at this time given the patient's hyponatremia. Will defer to the hospitalist service in regards to this issue. From the standpoint of her hypoxia and work of breathing she is much improved with BiPAP and following DuoNeb and IV Solu-Medrol as well as blood pressure control. COVID-19 testing and viral panel testing are negative. Case was discussed with the on-call hospitalist, Dr. Alegria, who was in agreement to accept the patient to a telemetry bed for further management. Patient was in agreement to the above plan and she was admitted in stable condition * CRITICAL CARE TIME: ( 45 ) minutes -Stabilization of hypoxia with oxygen saturations less than 90% despite supplemental oxygen requiring noninvasive positive pressure ventilation, time spent at the bedside, discussion with other physicians and arrangement of admission Diagnosis: 1. Hypoxia, acute 2. Pulmonary fibrosis 3. Elevated BNP 4. Peripheral edema 5. Hyponatremia 6. Hypochloremia 7. Elevated high-sensitivity troponin 8. Hyperglycemia without evidence of DKA Disposition: Admission Terence Membreno DO Emergency Medicine Past Med/Surg History Medical History (Updated 07/23/22 @ 21:50 by Terence Membreno DO) Hypomagnesemia Hyponatremia Hypoxia Pneumonia due to COVID-19 virus Type 2 diabetes mellitus Family History Other Family history non-contributory Social History Smoking Status: Never smoker Hx Alcohol Use: No Hx Substance Use: No Preferred Language: Hebrew Communication Ability: Effective [employer] Flatbed Driver Required: No Beliefs That Will Affect Care: None marital status: / Current Living Situation: Family How many Children do You have: 1 Feels Safe at Home: Yes Assistive Devices: Oxygen - Continuous Allergies Allergies Allergy/AdvReac Type Severity Reaction Status Date / Time No Known Allergies Allergy Verified 07/23/22 21:15 Home Meds Home Medications Medication Instructions Recorded Confirmed glipizide 10 mg tablet, extended 10 mg PO QDD 05/06/21 07/23/22 release 24 hr levothyroxine 88 mcg tablet 88 mcg PO DAILYBB 05/06/21 07/23/22 metformin 500 mg tablet,extended 2,000 mg PO QDD 05/06/21 07/23/22 release 24 hr metoprolol succinate 100 mg 100 mg PO QAM 05/06/21 07/23/22 tablet,extended release 24 hr rosuvastatin 5 mg tablet 5 mg PO 2XWK 05/06/21 07/23/22 L.acidoph-L.rhamn-B.bifidum-B.long 1 tab PO DAILY 07/23/22 07/23/22 12.9 mg (2 billion cell) tablet, DR (Probiotic Acidophilus Biobeads) albuterol sulfate 90 mcg/actuation 2 puff inhalation Q6H PRN Wheezing 07/23/22 07/23/22 aerosol inhaler apple cider vinegar 500 mg tablet 500 mg PO DAILY 07/23/22 07/23/22 benzonatate 100 mg capsule 100 mg PO TID PRN Cough 07/23/22 07/23/22 citalopram 10 mg tablet 10 mg PO QAM 07/23/22 07/23/22 clotrimazole 1 % topical cream 1 applic topical BID 07/23/22 07/23/22 codeine 10 mg-guaifenesin 100 mg/5 10 ml PO Q6H PRN Cough 07/23/22 07/23/22 mL oral liquid (Guaifenesin AC) cyanocobalamin (vitamin B-12) 1,000 mcg PO DAILY 07/23/22 07/23/22 1,000 mcg tablet (Vitamin B-12) empagliflozin 10 mg tablet 10 mg PO QAM 07/23/22 07/23/22 (Jardiance) furosemide 20 mg tablet (Lasix) 20 mg PO DAILY 07/23/22 07/23/22 milk thistle 150 mg capsule 150 mg PO DAILY 07/23/22 07/23/22 omega 8-shz-fdz-fish oil 1,000 mg 1 cap PO DAILY 07/23/22 07/23/22 (120 mg-180 mg) capsule (Fish Oil) prednisone 10 mg tablet 15 mg PO DAILY 07/23/22 07/23/22 valsartan 320 mg tablet 320 mg PO DAILY 07/23/22 07/23/22 Previous Rx's Medication Instructions Recorded Oxygen Home #1 ea 05/08/21 cefdinir 300 mg capsule 300 mg PO BID #10 caps 05/08/21 Results & Data (ED) Vital Signs Vital Signs - 24 hr 07/23/22 19:34 07/23/22 20:00 07/23/22 20:04 Temperature 36.4 C L Temperature Source Temporal Artery Scan Pulse Rate 89 87 Pulse Rate [Apical] Pulse Rhythm Pulse Rhythm [Apical] Pulse Strength [Apical] Respiratory Rate 22 40 H Respiratory Effort / Characteristics Non-Labored Spontaneous Respiratory Depth Normal Respiratory Pattern Regular Blood Pressure 128/94 Blood Pressure [Right Arm] Blood Pressure Mean 105 Blood Pressure Mean [Right Arm] Blood Pressure Position Sitting Pulse Oximetry 83 L Oxygen Delivery Method Nasal Cannula BiPAP Oxygen Flow Rate 2.5 Fraction of Inspired Oxygen 40 SaO2/FiO2 Ratio Sepsis Recent Fever Within 48 Hours No Sepsis New/Unexplained Change in Mental Status N/A Sepsis Action Taken by Nursing No Action Required Fraction of Inspired Oxygen - Titration 40 Pulse Oximetry Post Tiitration 93 07/23/22 20:04 07/23/22 20:05 07/23/22 20:07 Temperature Temperature Source Pulse Rate 85 Pulse Rate [Apical] 85 Pulse Rhythm Regular Pulse Rhythm [Apical] Regular Pulse Strength [Apical] Normal Respiratory Rate 28 H 28 H Respiratory Effort / Characteristics Short of Breath Labored Respiratory Depth Respiratory Pattern Tachypnea Blood Pressure Blood Pressure [Right Arm] 136/80 Blood Pressure Mean Blood Pressure Mean [Right Arm] 98 Blood Pressure Position Pulse Oximetry 92 82 L Oxygen Delivery Method BiPAP BiPAP Oxygen Flow Rate Fraction of Inspired Oxygen 40 SaO2/FiO2 Ratio 230 Sepsis Recent Fever Within 48 Hours Sepsis New/Unexplained Change in Mental Status Sepsis Action Taken by Nursing Fraction of Inspired Oxygen - Titration Pulse Oximetry Post Tiitration 07/23/22 20:31 Temperature Temperature Source Pulse Rate Pulse Rate [Apical] 85 Pulse Rhythm Pulse Rhythm [Apical] Pulse Strength [Apical] Respiratory Rate 29 H Respiratory Effort / Characteristics Non-Labored Spontaneous Respiratory Depth Respiratory Pattern Blood Pressure Blood Pressure [Right Arm] Blood Pressure Mean Blood Pressure Mean [Right Arm] Blood Pressure Position Pulse Oximetry 92 Oxygen Delivery Method BiPAP Oxygen Flow Rate Fraction of Inspired Oxygen 40 SaO2/FiO2 Ratio Sepsis Recent Fever Within 48 Hours Sepsis New/Unexplained Change in Mental Status Sepsis Action Taken by Nursing Fraction of Inspired Oxygen - Titration Pulse Oximetry Post Tiitration Laboratory Data Result diagrams: 07/23/22 19:54 07/23/22 19:54 Lab Results 12/10/22 12/10/22 12/10/22 Range/Units 19:54 19:54 19:54 WBC 10.57 (4.8-10.8) K/ul RBC 4.96 (3.93-5.22) M/uL Hgb 14.0 (12.0-16.0) g/dl Hct 41.7 (34.1-44.9) % MCV 84.1 (80.0-100.0) fL MCH 28.2 (25.0-34.0) pg MCHC 33.6 (32.0-36.0) g/dL RDW Std Deviation 49.9 H (36.4-46.3) fL RDW Coeff of Lulu 16.6 H (11.5-14.5) % Plt Count 251 (130-400) K/uL MPV 10.6 (9.4-12.3) fL Immature Gran % (Auto) 1.1 % Neut % (Auto) 78.4 % Lymph % (Auto) 14.6 % Alfalfa % (Auto) 5.3 % Eos % (Auto) 0.2 % Baso % (Auto) 0.4 % Neut # (Auto) 8.29 H (1.4-6.5) K/uL Lymph # (Auto) 1.54 (1.2-3.4) K/uL Alfalfa # (Auto) 0.56 (0.24-0.82) K/uL Eos # (Auto) 0.02 (0-0.50) K/uL Baso # (Auto) 0.04 (0-0.2) K/uL Immature Gran # (Auto) 0.12 H (0.00-0.02) K/uL Absolute Nucleated RBC 0.04 H (0-0) K/uL Nucleated RBC % (auto) 0.4 % PT INR APTT PTT Ratio VBG pH (7.36-7.41) VBG pCO2 (38-50) mmHg VBG pO2 mmHg VBG HCO3 mmol/L VBG O2 Saturation % VBG Base Excess mEq/L Sodium 130 L (136-145) mmol/L Potassium 3.4 L (3.5-5.1) mmol/L Chloride 87 L (98-107) mmol/L Carbon Dioxide 33 H (21-32) mmol/L Anion Gap 10 (3-11) BUN 15 (6-23) mg/dl Creatinine 0.82 (0.6-1.2) mg/dl Est Cr Clr Drug Dosing 90.9 ml/min Est GFR ( Amer) 93.4 ml/min Est GFR (Non-Af Amer) 80.6 ml/min BUN/Creatinine Ratio 18.3 (10-20) Glucose 374 H* (70-99(Fasting)) mg/dl Calcium 7.2 L (8.5-10.1) mg/dl Total Bilirubin 1.1 H (0.2-1.0) mg/dl AST 21 (13-39) U/L ALT 25 (7-52) U/L Alkaline Phosphatase 96 (34-104) U/L Troponin I High Sens 35.2 H (0-14) pg/ml B-Natriuretic Peptide 1966 H (0-100) pg/ml Total Protein 6.2 (6.0-8.3) gm/dl Albumin 3.6 (3.4-5.0) gm/dl Globulin 2.6 (2.5-4.0) gm/dl Albumin/Globulin Ratio 1.4 (0.9-2) Adenovirus (PCR) (NotDetected) B. pertussis DNA (PCR) (NotDetected) B.parapertussis DNA PCR (NotDetected) C. pneumoniae DNA (PCR) (NotDetected) Coronavirus OC43 (PCR) (NotDetected) Coronavirus HKU1 (PCR) (NotDetected) Coronavirus 229E (PCR) (NotDetected) SARS-CoV-2 (PCR) (NotDetected) Coronavirus NL63 (PCR) (NotDetected) Human Metapneumovir PCR (NotDetected) Influenza Type A (PCR) (NotDetected) Influenza Type B (PCR) (NotDetected) M. pneumoniae (PCR) (NotDetected) Parainfluenza 1 (PCR) (NotDetected) Parainfluenza 2 (PCR) (NotDetected) Parainfluenza 3 (PCR) (NotDetected) Parainfluenza 4 (PCR) (NotDetected) RSV (PCR) (NotDetected) Entero/Rhino (PCR) (NotDetected) 07/23/22 07/23/22 07/23/22 Range/Units 19:54 19:58 20:22 WBC (4.8-10.8) K/ul RBC (3.93-5.22) M/uL Hgb (12.0-16.0) g/dl Hct (34.1-44.9) % MCV (80.0-100.0) fL MCH (25.0-34.0) pg MCHC (32.0-36.0) g/dL RDW Std Deviation (36.4-46.3) fL RDW Coeff of Lulu (11.5-14.5) % Plt Count (130-400) K/uL MPV (9.4-12.3) fL Immature Gran % (Auto) % Neut % (Auto) % Lymph % (Auto) % Alfalfa % (Auto) % Eos % (Auto) % Baso % (Auto) % Neut # (Auto) (1.4-6.5) K/uL Lymph # (Auto) (1.2-3.4) K/uL Alfalfa # (Auto) (0.24-0.82) K/uL Eos # (Auto) (0-0.50) K/uL Baso # (Auto) (0-0.2) K/uL Immature Gran # (Auto) (0.00-0.02) K/uL Absolute Nucleated RBC (0-0) K/uL Nucleated RBC % (auto) % PT Cancelled INR Cancelled APTT Cancelled PTT Ratio Cancelled VBG pH 7.45 H (7.36-7.41) VBG pCO2 48 (38-50) mmHg VBG pO2 49 mmHg VBG HCO3 33 mmol/L VBG O2 Saturation 81.5 % VBG Base Excess 8.1 mEq/L Sodium (136-145) mmol/L Potassium (3.5-5.1) mmol/L Chloride (98-107) mmol/L Carbon Dioxide (21-32) mmol/L Anion Gap (3-11) BUN (6-23) mg/dl Creatinine (0.6-1.2) mg/dl Est Cr Clr Drug Dosing ml/min Est GFR ( Amer) ml/min Est GFR (Non-Af Amer) ml/min BUN/Creatinine Ratio (10-20) Glucose (70-99(Fasting)) mg/dl Calcium (8.5-10.1) mg/dl Total Bilirubin (0.2-1.0) mg/dl AST (13-39) U/L ALT (7-52) U/L Alkaline Phosphatase (34-104) U/L Troponin I High Sens (0-14) pg/ml B-Natriuretic Peptide (0-100) pg/ml Total Protein (6.0-8.3) gm/dl Albumin (3.4-5.0) gm/dl Globulin (2.5-4.0) gm/dl Albumin/Globulin Ratio (0.9-2) Adenovirus (PCR) Not Detected (NotDetected) B. pertussis DNA (PCR) Not Detected (NotDetected) B.parapertussis DNA PCR Not Detected (NotDetected) C. pneumoniae DNA (PCR) Not Detected (NotDetected) Coronavirus OC43 (PCR) Not Detected (NotDetected) Coronavirus HKU1 (PCR) Not Detected (NotDetected) Coronavirus 229E (PCR) Not Detected (NotDetected) SARS-CoV-2 (PCR) Not Detected (NotDetected) Coronavirus NL63 (PCR) Not Detected (NotDetected) Human Metapneumovir PCR Not Detected (NotDetected) Influenza Type A (PCR) Not Detected (NotDetected) Influenza Type B (PCR) Not Detected (NotDetected) M. pneumoniae (PCR) Not Detected (NotDetected) Parainfluenza 1 (PCR) Not Detected (NotDetected) Parainfluenza 2 (PCR) Not Detected (NotDetected) Parainfluenza 3 (PCR) Not Detected (NotDetected) Parainfluenza 4 (PCR) Not Detected (NotDetected) RSV (PCR) Not Detected (NotDetected) Entero/Rhino (PCR) Not Detected (NotDetected) Administered Medications Discontinued Medications Albuterol (Albut/Ipratrop 3mg/0.5mg Neb 3 Ml Vial) 3 ml NEB NOW STA; Protocol Stop: 07/23/22 20:15 Last Admin: 07/23/22 20:30 Dose: 3 ml Documented By: STS Methylprednisolone (Methylprednisolone 125 Mg/2 Ml Vial) 80 mg IV NOW STA Stop: 07/23/22 20:15 Last Admin: 07/23/22 20:27 Dose: 80 mg Documented By: IVANA Nitroglycerin (Nitroglycerin Sl 0.4 Mg/Tab Tab) 0.4 mg SL NOW STA Stop: 07/23/22 19:45 Last Admin: 07/23/22 19:51 Dose: 0.4 mg Documented By: IVANA Imaging Data Radiologist's Impression: Chest X-Ray 07/23/22 19:43 XR chest 1V portable CLINICAL HISTORY: Dyspnea COMPARISON STUDY: Chest radiograph and chest CT May 06, 2021. FINDINGS: No pneumothorax or pleural effusion is present. Interstitial thickening is similar to prior chest radiograph and chest CT. Cardiomegaly is unchanged. Upper mediastinal widening is also unchanged. No superimposed consolidation is identified. IMPRESSION: 1. No significant change in appearance of the chest. Interstitial thickening which is chronic and favors pulmonary fibrosis. 2. Stable cardiomegaly and upper mediastinal widening. ACT 112: Negative or not required by law. Electronically signed by: Matt King M.D. 07/23/2022 8:03 PM Discharge Plan Visit Data Chief Complaint: Shortness of Breath/Dyspnea Stated Complaint: SOB ED Provider: Terence Membreno Discharge Problem: Hypoxia Patient Disposition: Admitted As Inpatient Forms Stand Alone Forms: [facility] Prescriptions Prescriptions: No Action prednisone 10 mg tablet 15 mg PO DAILY citalopram 10 mg tablet 10 mg PO QAM Rx Instructions: PER PT "NOT STARTED YET". cyanocobalamin (vitamin B-12) [Vitamin B-12] 1,000 mcg Tablet 1,000 mcg PO DAILY milk thistle 150 mg Capsule 150 mg PO DAILY Rx Instructions: give with meal/snack benzonatate 100 mg capsule 100 mg PO TID PRN (Reason: Cough) Rx Instructions: PER PT "NOT STARTED YET". valsartan 320 mg Tablet 320 mg PO DAILY codeine-guaifenesin [Guaifenesin AC] 10-100 mg/5 mL Liquid 10 ml PO Q6H PRN (Reason: Cough) furosemide [Lasix] 20 mg Tablet 20 mg PO DAILY albuterol sulfate 90 mcg/actuation Hfa Aerosol Inhaler 2 puff INHALATION Q6H PRN (Reason: Wheezing) clotrimazole 1 % cream 1 applic TOPICAL BID Rx Instructions: STARTED 07/19/22 FOR 14 DAYS. apple cider vinegar 500 mg Tablet 500 mg PO DAILY omega 9-dbv-vpo-fish oil [Fish Oil] 1,000 mg (120 mg-180 mg) Capsule 1 cap PO DAILY Jardiance 10 mg Tablet 10 mg PO QAM Probiotic Acidophilus Biobeads 12.9 mg (2 billion cell) Tablet,Delayed Release (Dr/Ec) 1 tab PO DAILY metoprolol succinate 100 mg tablet extended release 24 hr 100 mg PO QAM levothyroxine 88 mcg tablet 88 mcg PO DAILYBB metformin 500 mg tablet extended release 24 hr 2,000 mg PO QDD glipizide 10 mg tablet extended release 24hr 10 mg PO QDD Rx Instructions: take 30 min before a meal rosuvastatin 5 mg tablet 5 mg PO 2XWK Rx Instructions: TAKES ON MONDAY AND WEDNESDAYS. (DME) Oxygen Home Liters Per Minute See Rx Instructions .Route Qty: 1 0RF Rx Instructions: 2LPM continuously cefdinir 300 mg capsule 300 mg PO BID Qty: 10 0RF Rx Instructions: ON [facility] MED LIST, NOT ON EXT MED HX. Referrals Referrals: Yohan Bean MD [Primary Care Provider] -
--- NOTE | 2022-07-23 20:06 | XRay Report ---
XR chest 1V portable CLINICAL HISTORY: Dyspnea COMPARISON STUDY: Chest radiograph and chest CT May 06, 2021. FINDINGS: No pneumothorax or pleural effusion is present. Interstitial thickening is similar to prior chest radiograph and chest CT. Cardiomegaly is unchanged. Upper mediastinal widening is also unchang ed. No superimposed consolidation is identified. IMPRESSION: 1. No significant change in appearance of the chest. Interstitial thickening which is chronic and fav ors pulmonary fibrosis. 2. Stable cardiomegaly and upper mediastinal widening. ACT 112: Negative or not required by law. Electronically signed by: Matt King M.D. 07/23/2022 8:03 PM
[2022-07-23] MEDS ORDERED: methylPREDNISolone 125 MG/2 ML VIAL IV STA (20:14)
[2022-07-23] MEDS ORDERED: ALBUT/IPRATROP 3MG/0.5MG NEB 3 ML VIAL NEB STA (20:14)
[2022-07-23 20:20] LABS: Basophils # (auto) 0.04 K/uL (0-0.2); Basophils % (auto) 0.4 %; Eosinophils # (auto) 0.02 K/uL (0-0.50); Eosinophils % (auto) 0.2 %; Hematocrit (blood only) 41.7 % (34.1-44.9); Immature Granulocytes # (auto) 0.12 K/uL (0.00-0.02); Immature Granulocytes % (auto) 1.1 %; Lymphocytes # (auto) 1.54 K/uL (1.2-3.4); Lymphocytes % (auto) 14.6 %; Mean Corpuscular Hemoglobin 28.2 pg (25.0-34.0); Mean Corpuscular Hgb Conc 33.6 g/dL (32.0-36.0); Mean Corpuscular Volume 84.1 fL (80.0-100.0); Mean Platelet Volume 10.6 fL (9.4-12.3); Monocytes # (auto) 0.56 K/uL (0.24-0.82); Monocytes % (auto) 5.3 %; Neutrophils # (auto) 8.29 K/uL (1.4-6.5); Neutrophils % (auto) 78.4 %; Nucleated RBC # (auto) 0.04 K/uL (0-0); Nucleated RBC % (auto) 0.4 %; Platelet Count 251 K/uL (130-400); RDW Coefficient of Variation 16.6 % (11.5-14.5); RDW Standard Deviation 49.9 fL (36.4-46.3); Red Blood Count 4.96 M/uL (3.93-5.22); White Blood Count 10.57 K/ul (4.8-10.8)
[2022-07-23 20:31] LABS: Base Excess VBG 8.1 mEq/L; HCO3 VBG 33 mmol/L; Oxygen Saturation VBG 81.5 %; PCO2 VBG 48 mmHg (38-50); PO2 VBG 49 mmHg; pH VBG 7.45 (7.36-7.41)
[2022-07-23 20:46] LABS: Albumin Globulin Ratio 1.4 (0.9-2); Albumin Level 3.6 gm/dl (3.4-5.0); BUN Creatinine Ratio 18.3 (10-20); Bilirubin,Total 1.1 mg/dl (0.2-1.0); Calcium 7.2 mg/dl (8.5-10.1); Creatinine Clr Calc Pharmacy 90.9 ml/min; Est GFR (African American) 93.4 ml/min; Est GFR (Non-African American) 80.6 ml/min; Globulin 2.6 gm/dl (2.5-4.0); Potassium 3.4 mmol/L (3.5-5.1); Total Protein 6.2 gm/dl (6.0-8.3)
[2022-07-23 20:49] LABS: Troponin I High Sensitivity 35.2 pg/ml (0-14)
[2022-07-23 21:10] LABS: Adenovirus PCR Not Detected (NotDetected); Bordetella parapertussis PCR Not Detected (NotDetected); Bordetella pertussis PCR Not Detected (NotDetected); Chlamydia pneumoniae PCR Not Detected (NotDetected); Coronavirus 229E PCR Not Detected (NotDetected); Coronavirus CoV-2 (COVID19)PCR Not Detected (NotDetected); Coronavirus HKU1 PCR Not Detected (NotDetected); Coronavirus NL63 PCR Not Detected (NotDetected); Coronavirus OC43PCR Not Detected (NotDetected); Human Metapneumovirus PCR Not Detected (NotDetected); Influenza A PCR Not Detected (NotDetected); Influenza B PCR Not Detected (NotDetected); Mycoplasma pneumoniae PCR Not Detected (NotDetected); Parainfluenza Virus 1 PCR Not Detected (NotDetected); Parainfluenza Virus 2 PCR Not Detected (NotDetected); Parainfluenza Virus 3 PCR Not Detected (NotDetected); Parainfluenza Virus 4 PCR Not Detected (NotDetected); Respiratory Syncytial VirusPCR Not Detected (NotDetected); Rhinovirus/Enterovirus PCR Not Detected (NotDetected)
[2022-07-23] MEDS ORDERED: BENZONATATE 100 MG CAPSULE PO PRN (23:34)
[2022-07-23] MEDS ORDERED: POLYETHYLENE (MIRALAX) 17 GM PACK PO PRN (23:34)
[2022-07-23] MEDS ORDERED: ALBUTEROL HFA 8 GM INHALER INH PRN (23:34)
[2022-07-23] MEDS ORDERED: STAT IV STA (23:34)
[2022-07-23] MEDS ORDERED: ALBUT/IPRATROP 3MG/0.5MG NEB 3 ML VIAL NEB PRN (23:34)
[2022-07-23] MEDS ORDERED: LANTUS PER UNIT CHARGE SQ SCH (23:34)
[2022-07-23] MEDS ORDERED: NITROGLYCERIN SL 0.4 MG/TAB TAB SL PRN (23:34)
[2022-07-23] MEDS ORDERED: FUROSEMIDE INJ 20 MG/2 ML VIAL IV ONE (23:45)
[2022-07-23] MEDS ORDERED: DEXTROSE 50% 50 ML SYRINGE IV PRN (23:45)
[2022-07-23] MEDS ORDERED: Nursing to Pharmacy Communication SCH (23:45)
[2022-07-23] MEDS ORDERED: CALCIUM GLUCONATE 10% 2,000 MG in DEXTROSE 5% 50 ML IV ONE (23:45)
[2022-07-23] MEDS ORDERED: GLUCOSE 10 TAB/TUBE PO PRN (23:45)
[2022-07-23] MEDS ORDERED: MoRPHine SULFATE 2 MG/ML CARP IV STA (23:45)
[2022-07-23] MEDS ORDERED: GLUCAGON FOR INJ 1 MG VIAL IM PRN (23:45)
[2022-07-23] MEDS ORDERED: GLUCOSE 40% GEL 15 GM TUBE PO PRN (23:45)
[2022-07-23] MEDS ORDERED: POTASSIUM CHLORIDE 20 MEQ/15 ML UDC PO STA (23:50)
[2022-07-24] MEDS ORDERED: INSULIN HUMAN REGULAR PER UNIT 5 UNITS in SYRINGE 4.95 ML IV ONE ×3 (00:15→11:45)
[2022-07-24] MEDS: CEFEPIME 2,000 MG in SYRINGE 0 ML IV SCH ×2 (00:25→11:57)
[2022-07-24] MEDS ORDERED: LORazepam 0.25 MG in SYRINGE 0 ML IV STA (01:01)
[2022-07-24] MEDS: ENOXAPARIN INJ 40 MG/0.4 ML SYR SQ SCH ×3 (01:17→20:34)
[2022-07-24 01:43] LABS: INR 1.2 (0.9-1.1); Partial Thromboplastin Ratio 0.9; Partial Thromboplastin Time 23.8 Seconds (21.0-31.0); Prothrombin Time 12.9 Seconds (9.0-12.0)
--- NOTE | 2022-07-24 01:44 | History and Physical Report ---
DATE OF ADMISSION: 07/23/2022. CHIEF COMPLAINT: Shortness of breath. HISTORY OF PRESENT ILLNESS: This is a 57-year-old female with past medical history significant for diabetes, hyperlipidemia, hypothyroidism, history of hyponatremia, history of interstitial lung disease, pulmonary fibrosis post- COVID, chronic respiratory failure on home oxygen 3-4 liters, hypertension, pulmonary hypertension, mild aortic regurgitation, obesity, vitamin B12 deficiency, immunosuppression due to chronic steroid use, who presents with ongoing shortness of breath. This is going on for some time, but the last few days it got worse. She saw pulmonary on 05/27/2022 and her prednisone was increased from 10 to 15 mg. She used to be on Bactrim prophylaxis until April, but stopped because her prednisone dose was less than 20. When she saw pulmonary, they increased Lasix 20 mg bid for for 3 days for possible right heart failure, normally she takes 20 mg daily, but it did not help her lower extremity swelling. Her PCP stopped her amlodipine, which seems to help the lower extremity swelling. Over the last 3-4 days, she is getting more short of breath. She has a cough for the last few weeks, whitish phlegm.Minimal exertion, making her short of breath. When she exerts, she gets chest pain since COVID. Today,on home oxygen, she was saturating in low 80s and she was brought in here. Initially, she was placed on nonrebreather, currently on BiPAP, she is saturating okay, able to give her history. Speaking in full sentences, slightly tachypneic. Sister in the room, sister lives across her house and the patient lives with her son and she ambulates without walker. She denies any fever or chills. No headache, no blurred visions, no earache, no runny nose, no sore throat, no difficulty swallowing. Appetite is not that great, but she drinks water okay. No chest pain currently. No nausea, no vomiting, no abdominal pain. She has alternating diarrhea and constipation, no blood in the stools or black stools. Normal micturition. No hematuria. ALLERGIES: No known drug allergies. PAST MEDICAL HISTORY: As mentioned above. PAST SURGICAL HISTORY: None. MEDICATIONS: Currently, the patient is on albuterol 2 puffs inhalation q. 6 hours p.r.n., benzonatate 100 mg p.o. t.i.d. p.r.n., cefdinir 300 mg p.o. b.i.d., citalopram 10 mg p.o. a.m., guaifenesin AC 10 mL p.o. q. 6 hours p.r.n., vitamin B12 1000 mcg p.o. daily, Jardiance 10 mg p.o. daily, Lasix 20 mg p.o. daily, glipizide 10 mg p.o. daily, probiotic 1 tablet p.o. daily, levothyroxine 88 mcg p.o. daily, metformin 2000 mg p.o. daily, metoprolol succinate 100 mg p.o. a.m., fish oil 1 capsule p.o. daily, prednisone 15 mg p.o. daily, Crestor 5 mg p.o. 2 times a week, valsartan 320 mg p.o. daily. FAMILY HISTORY: Significant for father has DC, hypertension; son has leukemia; mother has hypertension, Parkinson's. SOCIAL HISTORY: , lives with her son. Quit smoking in 2007. Smoked 1 pack a day for 20 years. Two standard drinks of alcohol per week. No drug use. REVIEW OF SYSTEMS: As per HPI. Rest of the review of systems is negative. PHYSICAL EXAMINATION: GENERAL: The patient is morbidly obese. Slightly tachypneic. VITAL SIGNS: Temperature 36.4, pulse 84, respiratory rate 26, blood pressure 136/101, oxygen 91% on BiPAP. HEENT: Pupils equal, round and reactive to light. Atraumatic. NECK: No ____, no JVD. No neck masses seen. CARDIOVASCULAR: S1 and S2 heard. Regular rate and rhythm. No murmur, no gallop. RESPIRATORY SYSTEM: Normal AP diameter. Mild tachypnea. Bibasilar coarse crackles heard. No wheezing. ABDOMEN: Soft, bowel sounds present, nontender, no distention. CENTRAL NERVOUS SYSTEM: Alert and oriented. No facial droop seen. Speech is clear. Insight is okay. Obeys simple commands. Moves extremities. EXTREMITIES: Bilateral lower extremity gross edema seen. No erythema seen. LABORATORY DATA: WBC 10.5, hemoglobin 14, hematocrit 41.7, platelets 251. Venous blood gas, pH of 7.45, pCO2 of 48. Sodium 130, potassium 3.4, chloride 87, bicarbonate 33, BUN 15, creatinine 0.8, serum glucose 374, calcium 7.2, total bilirubin 1.1, AST 21, ALT 25, alkaline phosphatase 96. Troponin I high sensitivity 35.2. BNP 1966. Respiratory BioFire negative. IMAGING DATA: Chest x-ray, no significant change in appearance; chest interstitial thickening, which is chronic and favors pulmonary fibrosis; stable cardiomegaly and upper mediastinal widening. EKG: Normal sinus rhythm at a rate of 86. Biatrial enlargement, left posterior fascicular block, nonspecific ST abnormalities. ASSESSMENT AND PLAN: This is a 57-year-old female who presents with worsening shortness of breath, apgqt-gs-hbornrl respiratory failure. 1. Zowwg-bs-qugxyfl respiratory failure, most likely secondary to interstitial lung disease flare. History of interstitial lung disease, post-COVID. Possible right-sided heart failure with elevated BNP, acute right-sided heart failure. The patient is on 20 of p.o. Lasix. Will do IV Lasix 20, one dose now and 20 IV daily. Follow echocardiogram. Follow serial cardiac enzymes, consult cardiology in the a.m. The patient is on prednisone 15mg daily at home, which we will hold, and place on IV Solu-Medrol 40 t.i.d., DuoNebs around the clock and p.r.n. P.o. doxycycline. Continue BiPAP for now. Consult pulmonary in the a.m. for further recommendations. Closely monitor in the tele floor.Added iv cefepime as she spiked temp. 2. History of diabetes: Sugars are running high. Will hold home p.o. medication. Place her on Lantus 6 units b.i.d. and insulin sliding scale. Follow the blood sugars closely as patient getting iv steroids. Follow HbA1c levels. Glycemic pharmacy consult. 3. Hypocalcemia: Calcium is 7.2. We will give her one dose of IV calcium gluconate and place on calcium and vitamin D tablets and check vitamin D level in the a.m. and follow calcium levels. 4. Mild elevation of troponin, mostly demand ischemia: We will follow serial cardiac enzymes. Follow echocardiogram. 5. Morbid obesity: Needs counseling. Probably has underlying sleep apnea. As per the outpatient pulmonary notes, the patient seems to be refusing to get sleep study. 6. Depression: Continue citalopram. 7. Vitamin B12 deficiency: Continue vitamin B12 supplements. 8. Hypothyroidism: Continue Synthroid. 9. Hypertension: Continue metoprolol, valsartan. Monitor the blood pressure. 10. Hyperlipidemia: On statin. 11. Hyponatremia: Sodium of 130, will follow the repeat levels. 12. Deep venous thrombosis prophylaxis: Lovenox. DISPOSITION: Closely monitor in the tele floor. Level 1 full code. Expect to discharge home and follow with family doctor. PT/OT prior to discharge. Social service to help with discharge planning. Job ID: [id number] YELENA
[2022-07-24] MEDS: DOXYCYCLINE HYCLATE 100 MG CAP PO SCH ×3 (01:54→20:32)
[2022-07-24] MEDS ORDERED: INSULIN ASPART PER UNIT SC STA (02:05)
[2022-07-24 02:48] LABS: Appearance Urine Clear (Clear); Bacteria Urine Automated 1+ (Negative); Bilirubin Urine Negative (Negative); Blood Urine Trace (Negative); Cast Urine Automated 0 /lpf (0-5); Color Urine Yellow; Epithelial Cell Urine Auto 20-30 /lpf (0-5); Glucose Urine UA 2+ (Negative); Ketones Urine Negative (Negative); Leukocyte Esterase Urine Negative (Negative); Nitrite Urine Positive (Negative); Protein Urine 3+ (Negative); RBC Urine Automated 0-4 /hpf (0-4); Specific Gravity Urine 1.011 (1.000-1.030); Urobilinogen Urine Negative (Negative); pH Urine 5.5 (4.5-7.5)
[2022-07-24] MEDS: methylPREDNISolone 40 MG in SYRINGE 0 ML IV SCH ×3 (03:12→20:34)
[2022-07-24] MEDS ORDERED: PHARMACY GLYCEMIC MGMT CONSULT PRN (06:03)
[2022-07-24] MEDS: LEVOTHYROXINE SODIUM 88 MCG TABLET PO SCH (06:22)
[2022-07-24 06:34] LABS: Basophils # (auto) 0.02 K/uL (0-0.2); Basophils % (auto) 0.3 %; Hemoglobin 13.5 g/dl (12.0-16.0); Immature Granulocytes # (auto) 0.12 K/uL (0.00-0.02); Immature Granulocytes % (auto) 1.6 %; Lymphocytes # (auto) 0.69 K/uL (1.2-3.4); Lymphocytes % (auto) 9.3 %; Mean Corpuscular Hemoglobin 27.9 pg (25.0-34.0); Mean Corpuscular Hgb Conc 32.9 g/dL (32.0-36.0); Mean Corpuscular Volume 84.7 fL (80.0-100.0); Mean Platelet Volume 10.8 fL (9.4-12.3); Monocytes # (auto) 0.08 K/uL (0.24-0.82); Monocytes % (auto) 1.1 %; Neutrophils % (auto) 87.7 %; Platelet Count 234 K/uL (130-400); RDW Coefficient of Variation 16.7 % (11.5-14.5); RDW Standard Deviation 50.9 fL (36.4-46.3); Red Blood Count 4.84 M/uL (3.93-5.22); White Blood Count 7.41 K/ul (4.8-10.8)
[2022-07-24 07:14] LABS: BUN Creatinine Ratio 16.1 (10-20); Calcium 7.7 mg/dl (8.5-10.1); Creatinine Clr Calc Pharmacy 84.7 ml/min; Est GFR (African American) 86.9 ml/min; Potassium 3.9 mmol/L (3.5-5.1)
[2022-07-24] MEDS: ALBUT/IPRATROP 3MG/0.5MG NEB 3 ML VIAL NEB SCH ×4 (07:15→19:20)
[2022-07-24] MEDS ORDERED: LANTUS PER UNIT CHARGE SQ ONE ×2 (07:30→21:00)
[2022-07-24] MEDS: CYANOCOBALAMIN (B-12) 500 MCG TABLET PO SCH (08:16)
[2022-07-24] MEDS: ROSUVASTATIN CALCIUM 5 MG TAB PO SCH (08:16)
[2022-07-24] MEDS: CITALOPRAM 20 MG TAB PO SCH (08:16)
[2022-07-24] MEDS: VALSARTAN 80 MG TAB PO SCH (08:16)
[2022-07-24] MEDS: METOPROLOL SUCC 50MG EXT REL TAB PO SCH (08:16)
[2022-07-24] MEDS: ADVANCED PROBIOTIC 1250 MG CAPSULE PO SCH (08:17)
[2022-07-24] MEDS: CALCIUM 600MG + VIT D 400 IU TAB PO SCH ×2 (08:17→20:32)
[2022-07-24] MEDS: CLOTRIMAZOLE 1% CR 15 GM TUBE TOP SCH ×2 (08:18→20:32)
[2022-07-24] MEDS: INSULIN ASPART PER UNIT SC SCH ×4 (08:21→21:03)
[2022-07-24] MEDS: MAGNESIUM SULFATE / D5W 1 GM/100 ML BAG IV SCH ×6 (08:24→18:06)
[2022-07-24] MEDS ORDERED: FUROSEMIDE INJ 20 MG/2 ML VIAL IV SCH (09:00)
[2022-07-24] MEDS ORDERED: ERGOCALCIFEROL 50,000 UNITS 1250 MCG CAP PO SCH (10:00)
--- NOTE | 2022-07-24 10:11 | Pharmacy Report ---
Pharmacy Glycemic Short Note 2 - Date of Service July 24, 2022 - Glycemic Short BSG Results (Last 24 hours): 07/23/22 07/23/22 07/24/22 19:54 23:43 00:04 Glucose 374 H* POC Glucose 386 H* 370 H* 07/24/22 07/24/22 07/24/22 00:05 01:42 06:06 Glucose 369 H* POC Glucose 379 H* 354 H* 07/24/22 07/24/22 07:36 07:37 Glucose POC Glucose 348 H* 356 H* OUTPATIENT ANTIDIABETIC REGIMEN: * Metformin 2 g PO daily * Jardiance 10 mg PO daily * Glipizide 10 mg PO daily HbA1c ordered/pending ASSESSMENT: * DM is a 57 year old female presents with worsening shortness of breath se condary to acute/chronic resp. failure * BSGs > 300 mg/dL on admission with sustained hyperglycemia likely related to IV steroids and inadequate initial insulin * Will give initial basal of ~0.4 unit/kg to cover steroids, tighten Novolog to weight-based/stress of 3 dosing, and utilize IV insulin boluses x 2 * Solu-medrol 40 mg IV q8h ordered ongoing, will adjust basal as needed when steroids change PLAN FOR INPATIENT GLYCEMIC CONTROL: * Hold outpatient oral diabetes medications * Basal insulin * Lantus 6 units SC x 1 overnight, 35 units SC x 1 to equal ~0.4 unit/kg * Bolus insulin * NovoLog per scale ACHS or Q6hrs while NPO * Goal Range: Low 110 mg/dL - High 140 mg/dL * Correction Factor: 15 mg/dL/unit * Nutritional / Prandial insulin per carb ratio of 1 unit per 5 grams CHO consumed
--- NOTE | 2022-07-24 10:19 | Cardiology Consultation ---
Date of Consultation July 24, 2022 Assessment & Plan (1) Pulmonary hypertension: (2) Idiopathic interstitial pneumonia: (3) Hypoxia: (4) Cor pulmonale: (5) Leg edema: Plan The patient's echocardiogram revealed signs of severe pulmonary hypertension and right-sided heart failure which is consistent with her progressive lung disease From a cardiac standpoint would recommend continued diuretic therapy and I will change her Lasix to 40 mg IV twice daily No other medication changes we made at this time Electrolytes should be followed and repleted as necessary I discussed the case with our solid tire tuber machine operator and it appears that patient will ultimately require lung transplantation Continue to monitor on telemetry History of Present Illness Reason for Consultation: Shortness of breath Requesting Physician: Dr. Ricky Nassar Attending Physician: Ambrose Abbott MD History of Present Illness Ms. Syed is a very pleasant 57-year-old woman with a history of progressive respiratory failure since being infected with COVID-19 pneumonia. She presented to [facility] on 07/23/2022 with complaints of worsening shortness of breath despite close follow-up and medication changes as an outpatient with her PCP and pulmonary medicine. She notes that she was saturating in the low 80s despite being on oxygen at home. She notes, that she has been trying to conserve her oxygen use at home given the fact that her insurance is not cleared her for an oxygen concentrator. Upon arrival to the emergency department she was found to be slightly hypoxemic and placed on nonrebreather. She denies any chest pain. Allergies Allergy/AdvReac Type Severity Reaction Status Date / Time No Known Allergies Allergy Verified 07/23/22 21:15 Home Medications Medication Instructions Recorded Confirmed Type glipizide 10 mg tablet, extended 10 mg PO QDD 05/06/21 07/23/22 History release 24 hr levothyroxine 88 mcg tablet 88 mcg PO DAILYBB 05/06/21 07/23/22 History metformin 500 mg tablet,extended 2,000 mg PO QDD 05/06/21 07/23/22 History release 24 hr metoprolol succinate 100 mg 100 mg PO QAM 05/06/21 07/23/22 History tablet,extended release 24 hr rosuvastatin 5 mg tablet 5 mg PO 2XWK 05/06/21 07/23/22 History Oxygen Home #1 ea 05/08/21 Rx cefdinir 300 mg capsule 300 mg PO BID #10 caps 05/08/21 07/23/22 Rx L.acidoph-L.rhamn-B.bifidum-B.long 1 tab PO DAILY 07/23/22 07/23/22 History 12.9 mg (2 billion cell) tablet, DR (Probiotic Acidophilus Biobanshul) albuterol sulfate 90 mcg/actuation 2 puff inhalation Q6H PRN Wheezing 07/23/22 07/23/22 History aerosol inhaler apple cider vinegar 500 mg tablet 500 mg PO DAILY 07/23/22 07/23/22 History benzonatate 100 mg capsule 100 mg PO TID PRN Cough 07/23/22 07/23/22 History citalopram 10 mg tablet 10 mg PO QAM 07/23/22 07/23/22 History clotrimazole 1 % topical cream 1 applic topical BID 07/23/22 07/23/22 History codeine 10 mg-guaifenesin 100 mg/5 10 ml PO Q6H PRN Cough 07/23/22 07/23/22 History mL oral liquid (Guaifenesin AC) cyanocobalamin (vitamin B-12) 1,000 mcg PO DAILY 07/23/22 07/23/22 History 1,000 mcg tablet (Vitamin B-12) empagliflozin 10 mg tablet 10 mg PO QAM 07/23/22 07/23/22 History (Jardiance) furosemide 20 mg tablet (Lasix) 20 mg PO DAILY 07/23/22 07/23/22 History milk thistle 150 mg capsule 150 mg PO DAILY 07/23/22 07/23/22 History omega 5-uje-zda-fish oil 1,000 mg 1 cap PO DAILY 07/23/22 07/23/22 History (120 mg-180 mg) capsule (Fish Oil) prednisone 10 mg tablet 15 mg PO DAILY 07/23/22 07/23/22 History valsartan 320 mg tablet 320 mg PO DAILY 07/23/22 07/23/22 History Patient History Medical History COVID-19 long hauler Hypomagnesemia Hyponatremia Hypoxia Idiopathic interstitial pneumonia Pneumonia due to COVID-19 virus Pulmonary hypertension Type 2 diabetes mellitus Family History Other Family history non-contributory Social History Smoking Status: Never smoker Hx Alcohol Use: No Hx Substance Use: No Preferred Language: Albanian Communication Ability: Effective Prosthetic Lab Technician Required: No Beliefs That Will Affect Care: None marital status: / Current Living Situation: Family Current Living Situation Comment: son How many Children do You have: 1 Feels Safe at Home: Yes Safety Concerns: Feels Safe At This Time Assistive Devices: Oxygen - Continuous Review of Systems Review of Systems: All systems reviewed & are unremarkable except as noted in HPI & below Physical Exam Physical Exam: General: Awake, alert and oriented x 3. No acute distress. HEENT: Normocephalic, atraumatic. Pupils equal, round and reactive to light and accommodation. Extraocular muscles are intact. Anicteric sclera. Moist mucous membranes. Neck: No JVD. No bruit. Cardiovascular: Regular. Positive S-4. Normal S-1 and S-2. No S-3. 3/6 holosystolic ejection murmur, 5th intercostal space, mid-clavicular line without radiation. No rubs. Pulmonary: Clear to auscultation bilaterally. No rales, rhonchi, or wheezing. Abdomen: Bowel sounds x 4, soft. No rebound, guarding or tenderness. No organomegaly. Extremities: No clubbing, cyanosis or edema. +2 pedal pulses bilaterally. Skin: Warm and dry. Results & Data ([facility]) Vital Signs (Past 12 Hours) Vital Signs Temp Pulse Pulse Resp BP Pulse Ox Pulse Ox 07/24/22 10:10 07/24/22 08:27 36.6 C 83 20 121/86 89 L 07/24/22 07:18 22 07/23/22 23:38 07/24/22 03:00 81 21 94 07/23/22 23:38 36.6 C 86 30 H 112/80 94 07/23/22 23:38 79 07/24/22 02:18 36.4 C L 87 22 122/87 94 07/23/22 23:34 92 07/23/22 23:21 90 38 H 94 07/23/22 22:33 84 26 H 136/101 H 91 O2 Del Method O2 Del Method O2 Flow Rate FiO2 07/24/22 10:10 Nasal Cannula 6 07/24/22 08:27 Nasal Cannula 4 07/24/22 07:18 Nasal Cannula 4 07/23/22 23:38 BiPAP 40 07/24/22 03:00 50 07/23/22 23:38 BiPAP 07/23/22 23:38 07/24/22 02:18 Oxymask 15 07/23/22 23:34 BiPAP 07/23/22 23:21 50 07/23/22 22:33 BiPAP Diagnostic Findings Interpretation Summary of echo from January 2022 The examination is adequate to evaluate the referral indication. The left ventricular cavity size is normal. The qualitative LV ejection fraction is 50-54% (normal). The septal motion is abnormal consistent with right ventricular pressure overload. The right ventricular cavity size is enlarged (basal dimension > 4.2 cm RV apical 4 chamber view). The right ventricular systolic function is severely reduced . The left atrium is normal sized. The right atrium is severely enlarged. Moderate tricuspid regurgitation is present. Moderate pulmonary hypertension is present. The aortic root is mildly enlarged. The proximal ascending thoracic aorta is moderately enlarged. Mild aortic valve regurgitation is present.
--- NOTE | 2022-07-24 11:33 | CT Scan Report ---
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 Chronic shortness of breath with ania or Covid pneumonia TECHNIQUE: Multiaxial CT images of the chest were performed without contrast. A dose lowering techni que was utilized adhering to the principles of ALARA. COMPARISON: Chest radiograph 07/23/2022, CTA chest 05/06/2021 FINDINGS: No thyroid nodule identified. Mediastinal and hilar lymphadenopathy redemonstrated, mildly improved from prior study. Paratracheal lymph nodes measure up to approximately 1.3 cm. Moderate card iomegaly with extensive coronary artery calcifications. Trace pericardial effusion. Mild fusiform dil ation of the ascending thoracic aorta measuring 4.2 cm is unchanged. Dilated pulmonary artery, 4.3 cm . No pneumothorax, pleural effusion or overt pulmonary edema. Mild tracheobronchial secretions. Subpleu ral cystic changes are most pronounced within the right lung apex and right lung base. Traction bronc hiectasis with subpleural reticulation with intermixed groundglass densities. There is improved aerat ion of the lungs compared to the prior study. No suspicious pulmonary nodules or masses are identifie d. Cystic changes/bronchiectasis have progressed from the prior study. Nonspecific bilateral perinephric stranding. Hepatomegaly with hepatic steatosis. Mild generalized cecil dy wall edema. Probable sebaceous cyst of the upper back to the midline, 1.4 cm. No acute fracture. D egenerative changes of the shoulders and spine. IMPRESSION: 1. Cardiomegaly without acute intrathoracic abnormality. 2. Chronic interstitial lung disease with subpleural predominant cysts/honeycombing, subpleural retic ulation with groundglass densities and bronchiectasis, right greater than left. The subpleural cystic changes/honeycombing has progressively worsened compared to the 05/06/2021 exam. 3. Mildly improved mediastinal and hilar lymphadenopathy, likely related to the chronic interstitial lung disease. 4. Cardiomegaly with evidence of pulmonary arterial hypertension. 5. Unchanged fusiform dilation of the ascending thoracic aorta, 4.2 cm. ACT 112: Negative or not required by law. Electronically signed by: Ran Morales M.D. 07/24/2022 11:31 AM
--- NOTE | 2022-07-24 12:14 | Hospitalist Progress Note ---
Date of Service July 24, 2022 Assessment & Plan (1) Hypoxia: Plan: Patient is a 57 yr female who presents with worsening shortness of breath, [id number] respiratory failure. Xeexl-sm-[id number] respiratory failure with Hypoxia Chronic oxygen dependency--on 3-4 L at baseline Chronic interstitial lung disease--Possible Flare H/O COVID Pulmonary artery hypertension Chronic steroid dependence Respiratory failure likely multifactorial: Interstitial lung disease, PAH, right-sided heart failure --CT Chest:Cardiomegaly without acute intrathoracic abnormality. Chronic interstitial lung disease with subpleural predominant cysts/honeycombing, s ubpleural reticulation with groundglass densities and bronchiectasis, right greater than left. The subpleural cystic changes/honeycombing has progressively worsened compared to the 05/06/2021 exam. Mildly improved mediastinal and hilar lymphadenopathy, likely related to the chronic interstitial lung disease. Cardiomegaly with evidence of pulmonary arterial hypertension. Unchanged fusiform dilation of the ascending thoracic aorta, 4.2 cm. --ECHO: EF 60 to 65%. Normal LV chamber size and wall thickness. No segmental left ventricle wall motion abnormality. Flattened septum is consistent with RV pressure/volume overload. D-shaped LV chamber. Grade 1 diastolic dysfunction. Right ventricle is severely dilated. Right ventricular systolic function is severely reduced. Mild aortic regurgitation. Severe tricuspid regurgitation. Severe pulmonary artery hypertension. -- Procalcitonin 0.05 --Continue IV Solu-Medrol, nebs, empiric antibiotics --Continue IV Lasix Monitor I's and O's, daily weight, electrolytes Supplemental oxygen as needed BiPAP as needed Pulmonology, cardiology consulted Follow-up cultures Mild troponin elevation Likely demand ischemia secondary to hypoxia Chronic hyponatremia Sodium 131 Monitor sodium levels Vitamin D deficiency Started on vitamin D supplements Abnormal urinalysis Rule out UTI Urine culture pending Empirically on cefepime DM II HbA1C pending Continue insulin per protocol Monitor BGs Glycemic pharmacy consulted Hypocalcemia: Likely due to vitamin D deficiency Received IV calcium gluconate Monitor Morbid obesity: BMI 41 Needs counseling Possible sleep apnea Patient refused sleep study as outpatient Depression: Continue citalopram Vitamin B12 deficiency: Continue vitamin B12 supplements. Hypothyroidism: Continue Levothyroxine Hypertension: Continue metoprolol, valsartan Hyperlipidemia: On statin. DVT Px: Lovenox SQ CODE STATUS Full code DISPOSITION: PT/OT prior to discharge Admission and Anticipated Discharge Date Admission Date: July 23, 2022 Subjective Patient is seen and examined at bedside States having cough, shortness of breath Also states having worsening leg swelling Denies any chest pain, dizziness, nausea, abdominal Offers no other complaints Review of Systems Review of Systems: All systems reviewed & are unremarkable except as noted in Subjective Physical Exam Physical Exam: Physical Exam: Vitals signs as noted above General Appearance:Morbidly obese, no apparent distress Head: normocephalic, Atraumatic Eyes: normal inspection, EOMI Neck: supple, Trachea midline Respiratory/Chest: Decreased breath sounds, basal crackles, No accessory muscle use Cardiovascular: S1, S2, No murmur Abdomen/GI:Soft, Non tender, Bowel sounds present Extremities/Musculoskeletal:normal inspection, 2+ B/L LE edema Neurologic/Psych:AAOX3, grossly no focal neurological deficits Skin: normal color, warm Results & Data Results & Data ([facility]) Vital Signs (Past 12 Hours) Vital Signs Temp Pulse Pulse Resp BP Pulse Ox O2 Del Method 07/24/22 11:28 36.9 C 82 16 110/77 93 Nasal Cannula 07/24/22 11:22 80 18 92 Nasal Cannula 07/24/22 10:10 Nasal Cannula 07/24/22 08:27 36.6 C 83 20 121/86 89 L Nasal Cannula 07/24/22 07:18 22 Nasal Cannula 07/24/22 03:00 81 21 94 07/24/22 02:18 36.4 C L 87 22 122/87 94 Oxymask O2 Flow Rate FiO2 07/24/22 11:28 6 07/24/22 11:22 6 07/24/22 10:10 6 07/24/22 08:27 4 07/24/22 07:18 4 07/24/22 03:00 50 07/24/22 02:18 15 Laboratory Results Short CBC 07/23/22 07/24/22 Range/Units 19:54 06:06 WBC 10.57 7.41 (4.8-10.8) K/ul Hgb 14.0 13.5 (12.0-16.0) g/dl Hct 41.7 41.0 (34.1-44.9) % Plt Count 251 234 (130-400) K/uL BMP 07/23/22 07/24/22 19:54 06:06 Sodium 130 L 131 L Potassium 3.4 L 3.9 Chloride 87 L 87 L Carbon Dioxide 33 H 36 H BUN 15 14 Creatinine 0.82 0.87 Glucose 374 H* 369 H* Calcium 7.2 L 7.7 L Liver Function 07/23/22 Range/Units 19:54 Total Bilirubin 1.1 H (0.2-1.0) mg/dl AST 21 (13-39) U/L ALT 25 (7-52) U/L Alkaline Phosphatase 96 (34-104) U/L Albumin 3.6 (3.4-5.0) gm/dl Urine 07/24/22 Range/Units 02:36 Urine Color Yellow Urine Appearance Clear (Clear) Urine pH 5.5 (4.5-7.5) Ur Specific [place] 1.011 (1.000-1.030) Urine Protein 3+ H (Negative) Urine Glucose (UA) 2+ H (Negative)
--- NOTE | 2022-07-24 12:44 | Pulmonary Consultation ---
Date of Consultation July 24, 2022 Assessment & Plan (1) Idiopathic interstitial pneumonia: (2) COVID-19 long hauler: (3) Hypoxia: (4) Pulmonary hypertension: Plan 57-year-old female with history of morbid obesity and COVID-19 in 2020. 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 Difficult to rule out another component of ILD as well such as scleroderma. I do not have any of the work-up from her outpatient access service representative in [facility]. She appears to have very advanced disease and WHO group 3 pulmonary hypertension. She is severely fluid overloaded. We will check a BMP and magnesium now. If labs appear okay, will give an additional dose of 40 mg IV Lasix. She appears to have terminal interstitial lung disease based on her CT chest scan. I do not have the results of her PFTs or other serological labs (if they were done). I would recommend significant weight loss, outpatient pulmonary rehab and outpatient lung transplant referral. Patient should also undergo a sleep study as she has high risk factors for DEVON/OHS. Recommend rapidly titrating her off of IV Solu-Medrol given her obesity and diabetes. Decreased to prednisone 40 mg starting tomorrow. Can consider bronchoscopy later this week to rule out infectious etiology such as PJP and/or atypical nontuberculous mycobacterial infection versus other. Bio fire negative on admission. Check urine Legionella. Check MRSA screen. Continue cefepime and doxycycline. Thank you for the interesting consult. Pulmonary will continue to follow with you. History of Present Illness Reason for Consultation: Acute respiratory failure Attending Physician: Ambrose Abbott MD History of Present Illness 57-year-old female with a history of morbid obesity, hyperlipidemia, hypothyroidism and pulmonary fibrosis post COVID-19 who presented to the hospital due to increasing shortness of breath and swelling in her legs. She normally uses 3 to 4 L of oxygen at home, but notes that she tries to "conserve the oxygen" because she does not have a concentrator. She notes that she was a smoker and quit smoking 10 years ago. She smoked about a pack a day for 20 years. She denies any recent fevers or chills. No chest pain. She does have severe dyspnea with exertion. She notes that she saw Dr. Cerna from [facility] pulmonology and he referred her to [facility] for further evaluation. She had an echo today which demonstrated severe pulmonary hypertension. CT of her chest demonstrated subpleural fibrotic changes and diffuse groundglass opacities. There are also cystic changes noted in the right upper lobe which have progressed compared to the scan from April 2021. I reviewed her chest x-ray from 2018 which was largely unremarkable. She has been started on 40 mg Solu-Medrol 3 times daily and given 20 mg IV Lasix today. She remains on 6 L of oxygen saturating in the low 90s. I discussed the case with the patient's core drier at bedside and nurse. She denies having any exotic animals such as lizards or birds. No significant occupational exposure history. 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 She had 1 dog which recently passed. She has 3 cats at home. Allergies Allergy/AdvReac Type Severity Reaction Status Date / Time No Known Allergies Allergy Verified 07/23/22 21:15 Home Medications Medication Instructions Recorded Confirmed Type glipizide 10 mg tablet, extended 10 mg PO QDD 05/06/21 07/23/22 History release 24 hr levothyroxine 88 mcg tablet 88 mcg PO DAILYBB 05/06/21 07/23/22 History metformin 500 mg tablet,extended 2,000 mg PO QDD 05/06/21 07/23/22 History release 24 hr metoprolol succinate 100 mg 100 mg PO QAM 05/06/21 07/23/22 History tablet,extended release 24 hr rosuvastatin 5 mg tablet 5 mg PO 2XWK 05/06/21 07/23/22 History Oxygen Home #1 ea 05/08/21 Rx cefdinir 300 mg capsule 300 mg PO BID #10 caps 05/08/21 07/23/22 Rx L.acidoph-L.rhamn-B.bifidum-B.long 1 tab PO DAILY 07/23/22 07/23/22 History 12.9 mg (2 billion cell) DR bolivar (Probiotic Acidophilus Jacek) albuterol sulfate 90 mcg/actuation 2 puff inhalation Q6H PRN Wheezing 07/23/22 07/23/22 History aerosol inhaler apple cider vinegar 500 mg tablet 500 mg PO DAILY 07/23/22 07/23/22 History benzonatate 100 mg capsule 100 mg PO TID PRN Cough 07/23/22 07/23/22 History citalopram 10 mg tablet 10 mg PO QAM 07/23/22 07/23/22 History clotrimazole 1 % topical cream 1 applic topical BID 07/23/22 07/23/22 History codeine 10 mg-guaifenesin 100 mg/5 10 ml PO Q6H PRN Cough 07/23/22 07/23/22 History mL oral liquid (Guaifenesin AC) cyanocobalamin (vitamin B-12) 1,000 mcg PO DAILY 07/23/22 07/23/22 History 1,000 mcg tablet (Vitamin B-12) empagliflozin 10 mg tablet 10 mg PO QAM 07/23/22 07/23/22 History (Jardiance) furosemide 20 mg tablet (Lasix) 20 mg PO DAILY 07/23/22 07/23/22 History milk thistle 150 mg capsule 150 mg PO DAILY 07/23/22 07/23/22 History omega 7-vuy-asu-fish oil 1,000 mg 1 cap PO DAILY 07/23/22 07/23/22 History (120 mg-180 mg) capsule (Fish Oil) prednisone 10 mg tablet 15 mg PO DAILY 07/23/22 07/23/22 History valsartan 320 mg tablet 320 mg PO DAILY 07/23/22 07/23/22 History Patient History Medical History (Updated 07/24/22 @ 12:38 by Bayron Almanzar MD) COVID-19 long hauler Hypomagnesemia Hyponatremia Hypoxia Idiopathic interstitial pneumonia Pneumonia due to COVID-19 virus Pulmonary hypertension Type 2 diabetes mellitus Family History Other Family history non-contributory Social History Smoking Status: Never smoker Hx Alcohol Use: No Hx Substance Use: No Preferred Language: Ivorian Communication Ability: Effective Chemical Operations Specialist Required: No Beliefs That Will Affect Care: None marital status: / Current Living Situation: Family Current Living Situation Comment: son How many Children do You have: 1 Feels Safe at Home: Yes Safety Concerns: Feels Safe At This Time Assistive Devices: Oxygen - Continuous Review of Systems 2 Review of Systems: All systems reviewed & are unremarkable except as noted in HPI & below Physical Exam Physical Exam: Constitutional: Morbidly obese appearing female who appears fatigued. Oxygen tubing in place. Eyes: Pupils are equal round and reactive to light. Conjunctivae are normal. Anicteric sclera. Ears nose, mouth and throat: Mallampati class 3. Normal posterior oropharynx. Uvula is midline. Neck: Trachea is midline. Visual inspection is normal. Respiratory: Diffuse inspiratory crackles. No wheezes. Cardiovascular: Regular rate and rhythm. No murmurs. 4+ pitting edema in the lower extremities bilaterally. Gastrointestinal: Normal bowel sounds, soft, nontender and nondistended. No hepatosplenomegaly noted. Musculoskeletal: No cyanosis. Patient is able to move all extremities. Skin: No rashes, warm dry and intact. Neurologic: No obvious focal neurological deficits seen. Psychiatric: Alert and oriented x3 with a euthymic affect. Results & Data Results & Data ([facility]) Vital Signs (Past 12 Hours) Vital Signs Temp Pulse Pulse Resp BP Pulse Ox O2 Del Method 07/24/22 11:28 36.9 C 82 16 110/77 93 Nasal Cannula 07/24/22 11:22 80 18 92 Nasal Cannula 07/24/22 10:10 Nasal Cannula 07/24/22 08:27 36.6 C 83 20 121/86 89 L Nasal Cannula 07/24/22 07:18 22 Nasal Cannula 07/24/22 03:00 81 21 94 07/24/22 02:18 36.4 C L 87 22 122/87 94 Oxymask O2 Flow Rate FiO2 07/24/22 11:28 6 07/24/22 11:22 6 07/24/22 10:10 6 07/24/22 08:27 4 07/24/22 07:18 4 07/24/22 03:00 50 07/24/22 02:18 15 PG Care Time/CCT Total # of Minutes Spent Total Time Spent with Patient: Total time spent is greater than 50% in coordination of care (as documented) at patient's floor/unit and/or counseling patient: Coding Level of Care Code 50908 Inpt Consult Level 5 Diagnoses Idiopathic interstitial pneumonia J84.111 COVID-19 long hauler U09.9 Hypoxia R09.02 Pulmonary hypertension I27.20
[2022-07-24 13:09] LABS: BUN Creatinine Ratio 18.9 (10-20); Calcium 7.8 mg/dl (8.5-10.1); Creatinine Clr Calc Pharmacy 99.6 ml/min; Est GFR (African American) 105.7 ml/min; Est GFR (Non-African American) 91.2 ml/min; Magnesium 1.3 mg/dl (1.7-2.4); Potassium 3.2 mmol/L (3.5-5.1)
[2022-07-24] MEDS: FUROSEMIDE 40 MG/4 ML VIAL IV SCH ×2 (13:36→20:34)
[2022-07-24] MEDS ORDERED: FUROSEMIDE 40 MG/4 ML VIAL IV ONE (14:07)
[2022-07-24] MEDS ORDERED: POTASSIUM CHLORIDE CRTAB 20 MEQ TABCR PO STA (14:07)
[2022-07-24] MEDS ORDERED: STAT IV STA (14:07)
[2022-07-24] MEDS: POTASSIUM CHLORIDE / WTR 10 MEQ/100 ML PLCT IV SCH ×2 (14:23→16:15)
[2022-07-24] MEDS ORDERED: CALCIUM GLUCONATE 10% 2,000 MG in DEXTROSE 5% 50 ML IV ONE (14:30)
[2022-07-24 22:00] LABS: BUN Creatinine Ratio 15.6 (10-20); Calcium 8.2 mg/dl (8.5-10.1); Creatinine Clr Calc Pharmacy 76.8 ml/min; Est GFR (African American) 77.2 ml/min; Est GFR (Non-African American) 66.6 ml/min; Magnesium 1.9 mg/dl (1.7-2.4); Potassium 3.5 mmol/L (3.5-5.1)
[2022-07-25] MEDS: INSULIN ASPART PER UNIT SC SCH ×6 (00:30→21:14)
[2022-07-25] MEDS: CEFEPIME 2,000 MG in SYRINGE 0 ML IV SCH ×2 (00:34→13:50)
[2022-07-25] MEDS: methylPREDNISolone 40 MG in SYRINGE 0 ML IV SCH (04:44)
--- NOTE | 2022-07-25 06:12 | Electrocardiogram Report ---
Test Reason : Blood Pressure : / mmHG Vent. Rate : 086 BPM Atrial Rate : 086 BPM P-R Int : 142 ms QRS Dur : 082 ms QT Int : 402 ms P-R-T Axes : 041 126 -27 degrees QTc Int : 481 ms Poor data quality, interpretation may be adversely affected Normal sinus rhythm Biatrial enlargement Nonspecific ST and T wave abnormality Abnormal ECG When compared with ECG of 07-MAY-2021 09:46, Vent. rate has increased BY 29 BPM Nonspecific T wave abnormality has replaced inverted T waves in Anterior leads Confirmed by Fernando Vazqeuz ([id number]) on 07/25/2022 6:12:23 AM Referred By: REFERRED SELF Confirmed By:Fernando Vazquez
[2022-07-25] MEDS: LEVOTHYROXINE SODIUM 88 MCG TABLET PO SCH (06:30)
[2022-07-25] MEDS: ALBUT/IPRATROP 3MG/0.5MG NEB 3 ML VIAL NEB SCH ×4 (07:22→19:58)
[2022-07-25 07:41] LABS: Hematocrit (blood only) 43.7 % (34.1-44.9); Hemoglobin 14.4 g/dl (12.0-16.0); Mean Corpuscular Hemoglobin 27.9 pg (25.0-34.0); Mean Corpuscular Volume 84.5 fL (80.0-100.0); Mean Platelet Volume 10.2 fL (9.4-12.3); Nucleated RBC # (auto) 0.03 K/uL (0-0); Nucleated RBC % (auto) 0.3 %; Platelet Count 258 K/uL (130-400); RDW Coefficient of Variation 16.4 % (11.5-14.5); RDW Standard Deviation 50.2 fL (36.4-46.3); Red Blood Count 5.17 M/uL (3.93-5.22); White Blood Count 9.64 K/ul (4.8-10.8)
[2022-07-25 07:43] LABS: Estimated Average Glucose 306 mg/dl; Hemoglobin A1C 12.3 % (4.5-5.6)
[2022-07-25 08:08] LABS: BUN Creatinine Ratio 16.7 (10-20); Calcium 8.3 mg/dl (8.5-10.1); Creatinine Clr Calc Pharmacy 86.7 ml/min; Est GFR (African American) 90.7 ml/min; Est GFR (Non-African American) 78.2 ml/min; Magnesium 1.7 mg/dl (1.7-2.4); Potassium 3.6 mmol/L (3.5-5.1)
[2022-07-25] MEDS: VALSARTAN 80 MG TAB PO SCH (08:25)
[2022-07-25] MEDS: CITALOPRAM 20 MG TAB PO SCH (08:25)
[2022-07-25] MEDS: ADVANCED PROBIOTIC 1250 MG CAPSULE PO SCH (08:26)
[2022-07-25] MEDS: METOPROLOL SUCC 50MG EXT REL TAB PO SCH (08:26)
[2022-07-25] MEDS: CYANOCOBALAMIN (B-12) 500 MCG TABLET PO SCH (08:26)
[2022-07-25] MEDS: FUROSEMIDE 40 MG/4 ML VIAL IV SCH ×2 (08:26→21:39)
[2022-07-25] MEDS: CALCIUM 600MG + VIT D 400 IU TAB PO SCH ×2 (08:26→21:38)
[2022-07-25] MEDS: DOXYCYCLINE HYCLATE 100 MG CAP PO SCH (08:26)
[2022-07-25] MEDS: POTASSIUM CHLORIDE CRTAB 20 MEQ TABCR PO SCH ×2 (08:27→21:37)
[2022-07-25] MEDS: CLOTRIMAZOLE 1% CR 15 GM TUBE TOP SCH ×2 (08:27→21:39)
[2022-07-25] MEDS: ENOXAPARIN INJ 40 MG/0.4 ML SYR SQ SCH ×2 (08:27→21:37)
[2022-07-25] MEDS ORDERED: LANTUS PER UNIT CHARGE SQ SCH (09:00)
--- NOTE | 2022-07-25 12:08 | Pulmonology Progress Note ---
Date of Service July 25, 2022 Assessment & Plan (1) Pulmonary hypertension: Plan: Unfortunate 57-year-old female with ILD secondary to COVID-19 pneumonia requiring escalating home O2 and ongoing medical management. At this point, patient does not appear to be infectious. Will discontinue antibiotics. Patient has been on steroids regularly since January of this year. Initially, she did have some improvement, however they have not been providing her symptom relief at this point. We will titrate down her prednisone to 20 mg to start. We should attempt to taper her steroids down to off if able over the next few to several weeks. A bulk of the patient's symptoms is likely coming from her impressive pulmonary hypertension. Agree with aggressive diuresis. We will add Diamox given her metabolic alkalosis. Patient will likely need PFT and sleep studies in the outpatient setting. She was scheduled to follow-up with Lino juárez at the time of discharge as her primary veterinary parasitologist is leaving. Additionally, patient will need a repeat echocardiogram pending volume improvement status. Thank you for allowing us to participate in the care of this patient. (2) Cor pulmonale: (3) Leg edema: (4) COVID-19 long hauler: (5) Hypoxia: Plan patient seen and examined. Discussed with off going veterinary parasitologist and reviewed with AMOS. Agree with assessment plan as noted. Images were independently reviewed. Significant fibrotic lung disease. Do not see a benefit from prednisone at this point time. Would recommend decreasing down to the patient's baseline dose of 10 mg a day. Would recommend tapering by 2-1/2 mg every week or 2 until we get the patient off. She is severely overloaded at this point time and continued diuretics will be administered. We will give a dose of Diamox to try and improve alkalosis. Outpatient sleep study recommended. He right heart catheterization at some point in time. Given hypoxemia, repeat assessment of echocardiogram with bubble to exclude PFO may be appropriate. However would wait till volume status is optimized. Once the patient is on a stable oral diuretic regimen, she can be dismissed from the hospital and follow-up with Dr. Almanzar in the outpatient setting as she wishes to get her care here. Admission and Anticipated Discharge Date Admission Date: July 23, 2022 Subjective Patient seen and examined at bedside today. She is resting comfortably, but admits that she has not moved much from her bed today. She does report ongoing shortness of breath with any exertion. She has been tolerating the medications and breathing treatments well. She has not undergone sleep study to this point as she reports that she was not able to afford it during the year. She has not had PFTs that she is aware. Review of Systems Review of Systems: A complete 10 point review of systems was reviewed with the patient with pertinent positives and negatives as per history of present illness. All else were negative. Physical Exam Physical Exam: VITAL SIGNS - Vital signs and nursing notes were reviewed. GENERAL - 57-year-old female appearing her stated age who is in no acute distress. Communicates well with provider and answers questions appropriately. LUNGS - Chest wall symmetric without accessory muscle use, intercostals retractions, or central cyanosis. Bibasilar rales noted. CARDIAC - RRR with S1/S2. No murmur, rubs, or gallops appreciated. No reproducible tenderness to palpation appreciated over the anterior chest wall. ABDOMEN - Abdominal contour obese without pulsations or visible masses. BS normoactive all four quadrants. No tenderness, palpable masses, hepatosplenomegaly, or ascites noted. EXTREMITIES - No clubbing or peripheral cyanosis. Significant bilateral pretibial edema present. +3/5 radial and dorsalis pedis pulses palpated throughout. +5/5 strength noted in UE/LE bilaterally. PSYCH - A&Ox3 and cooperates fully with examiner. Pt is very pleasant and interacts well with examiner. Results & Data Results & Data ([facility]) Vital Signs (Past 12 Hours) Vital Signs Temp Pulse Pulse Resp BP Pulse Ox O2 Del Method 07/25/22 12:02 78 20 92 Nasal Cannula 07/25/22 11:24 36.7 C 80 20 110/76 95 Nasal Cannula 07/25/22 09:00 Nasal Cannula 07/25/22 07:27 37 C 70 18 117/82 100 Nasal Cannula 07/25/22 07:00 83 07/25/22 07:22 74 16 92 Nasal Cannula 07/25/22 04:29 37.2 C 76 18 120/87 97 Nasal Cannula O2 Flow Rate 07/25/22 12:02 6 07/25/22 11:24 6 07/25/22 09:00 6 07/25/22 07:27 6 07/25/22 07:00 07/25/22 07:22 6 07/25/22 04:29 6
--- NOTE | 2022-07-25 12:57 | Hospitalist Progress Note ---
Date of Service July 25, 2022 Assessment & Plan (1) Hypoxia: Plan: Patient is a 57 yr female who presents with worsening shortness of breath, [id number] respiratory failure. [id number]-[id number] respiratory failure with Hypoxia Chronic oxygen dependency--on 3-4 L at baseline Chronic interstitial lung disease--Possible Flare H/O COVID Pulmonary artery hypertension Chronic steroid dependence Respiratory failure likely multifactorial: Interstitial lung disease, PAH, right-sided heart failure --CT Chest:Cardiomegaly without acute intrathoracic abnormality. Chronic interstitial lung disease with subpleural predominant cysts/honeycombing, s ubpleural reticulation with groundglass densities and bronchiectasis, right greater than left. The subpleural cystic changes/honeycombing has progressively worsened compared to the 05/06/2021 exam. Mildly improved mediastinal and hilar lymphadenopathy, likely related to the chronic interstitial lung disease. Cardiomegaly with evidence of pulmonary arterial hypertension. Unchanged fusiform dilation of the ascending thoracic aorta, 4.2 cm. --ECHO: EF 60 to 65%. Normal LV chamber size and wall thickness. No segmental left ventricle wall motion abnormality. Flattened septum is consistent with RV pressure/volume overload. D-shaped LV chamber. Grade 1 diastolic dysfunction. Right ventricle is severely dilated. Right ventricular systolic function is severely reduced. Mild aortic regurgitation. Severe tricuspid regurgitation. Severe pulmonary artery hypertension. -- Procalcitonin 0.05 --Blood cultures negative to date --Urine for Legionella pending --Nasal MRSA Negative --Continue IV Solu-Medrol>> transition to prednisone --Continue nebs, empiric antibiotics --Continue IV Lasix Monitor I's and O's, daily weight, electrolytes Supplemental oxygen as needed BiPAP as needed Appreciate Pulmonology/Cardiology Input Needs sleep study as outpatient Wean down supplemental oxygen as able Pulmonary to consider bronchoscopy if needed Mild troponin elevation Likely demand ischemia secondary to hypoxia Chronic hyponatremia Sodium 130 Monitor sodium levels Vitamin D deficiency Started on vitamin D supplements Abnormal urinalysis Rule out UTI Urine culture pending Empirically on cefepime DM II HbA1C 12.3 Continue insulin per protocol Monitor BGs Glycemic pharmacy consulted Hypocalcemia: Likely due to vitamin D deficiency Received IV calcium gluconate Monitor Morbid obesity: BMI 41 Needs counseling Possible sleep apnea Patient refused sleep study as outpatient Depression: Continue citalopram Vitamin B12 deficiency: Continue vitamin B12 supplements. Hypothyroidism: Continue Levothyroxine Hypertension: Continue metoprolol, valsartan Hyperlipidemia: On statin. DVT Px: Lovenox SQ CODE STATUS Full code DISPOSITION: PT/OT prior to discharge Admission and Anticipated Discharge Date Admission Date: July 23, 2022 Subjective Patient is seen and examined at bedside States feeling better today Less anxious Dyspnea slowly improving Has mild expectorant cough Still has significant lower extremity edema Denies any chest pain, dizziness, nausea, abdominal Saturating low 90s on 6 L supplemental oxygen Review of Systems Review of Systems: All systems reviewed & are unremarkable except as noted in Subjective Physical Exam Physical Exam: Physical Exam: Vitals signs as noted above General Appearance:Morbidly obese, no apparent distress Head: normocephalic, Atraumatic Eyes: normal inspection, EOMI Neck: supple, Trachea midline Respiratory/Chest: Decreased breath sounds, basal crackles, No accessory muscle use Cardiovascular: S1, S2, No murmur Abdomen/GI:Soft, Non tender, Bowel sounds present Extremities/Musculoskeletal:normal inspection, 2+ B/L LE edema Neurologic/Psych:AAOX3, grossly no focal neurological deficits Skin: normal color, warm Results & Data Results & Data ([facility]) Vital Signs (Past 12 Hours) Vital Signs Temp Pulse Pulse Resp BP Pulse Ox O2 Del Method 07/25/22 12:02 78 20 92 Nasal Cannula 07/25/22 11:24 36.7 C 80 20 110/76 95 Nasal Cannula 07/25/22 09:00 Nasal Cannula 07/25/22 07:27 37 C 70 18 117/82 100 Nasal Cannula 07/25/22 07:00 83 07/25/22 07:22 74 16 92 Nasal Cannula 07/25/22 04:29 37.2 C 76 18 120/87 97 Nasal Cannula O2 Flow Rate 07/25/22 12:02 6 07/25/22 11:24 6 07/25/22 09:00 6 07/25/22 07:27 6 07/25/22 07:00 07/25/22 07:22 6 07/25/22 04:29 6 Laboratory Results Short CBC 07/25/22 Range/Units 06:35 WBC 9.64 (4.8-10.8) K/ul Hgb 14.4 (12.0-16.0) g/dl Hct 43.7 (34.1-44.9) % Plt Count 258 (130-400) K/uL BMP 12/11/22 12/11/22 12/12/22 12:40 21:30 06:35 Sodium 131 L 128 L 130 L Potassium 3.2 L 3.5 3.6 Chloride 87 L 83 L 83 L Carbon Dioxide 34 H 37 H 42 H* BUN 14 15 14 Creatinine 0.74 0.96 0.84 Glucose 270 H 184 H 167 H Calcium 7.8 L 8.2 L 8.3 L
[2022-07-25] MEDS ORDERED: predniSONE 20 MG TAB PO SCH (13:00)
[2022-07-25] MEDS ORDERED: LANTUS PER UNIT CHARGE SQ ONE (16:30)
[2022-07-25] MEDS: ACETAZOLAMIDE IV SCH (16:49)
[2022-07-25] MEDS: DEXTROSE 5% IV SCH (16:49)
[2022-07-26] MEDS: LEVOTHYROXINE SODIUM 88 MCG TABLET PO SCH (05:54)
[2022-07-26] MEDS: ALBUT/IPRATROP 3MG/0.5MG NEB 3 ML VIAL NEB SCH ×4 (07:08→19:53)
[2022-07-26] MEDS: CARBOHYDRATES FOR HYPOGLYCEMIA PO PRN (07:26)
[2022-07-26] MEDS: INSULIN ASPART PER UNIT SC SCH ×4 (07:33→20:13)
[2022-07-26] MEDS ORDERED: LANTUS PER UNIT CHARGE SQ SCH (09:00)
[2022-07-26 09:07] LABS: Hematocrit (blood only) 44.9 % (34.1-44.9); Hemoglobin 14.6 g/dl (12.0-16.0); Mean Corpuscular Hemoglobin 27.8 pg (25.0-34.0); Mean Corpuscular Hgb Conc 32.5 g/dL (32.0-36.0); Mean Corpuscular Volume 85.4 fL (80.0-100.0); Mean Platelet Volume 10.9 fL (9.4-12.3); Nucleated RBC # (auto) 0.03 K/uL (0-0); Nucleated RBC % (auto) 0.2 %; Platelet Count 270 K/uL (130-400); RDW Coefficient of Variation 16.7 % (11.5-14.5); RDW Standard Deviation 51.7 fL (36.4-46.3); Red Blood Count 5.26 M/uL (3.93-5.22); White Blood Count 12.29 K/ul (4.8-10.8)
[2022-07-26] MEDS: NovoLIN-N (NPH) PER UNIT CHARGE SQ SCH (09:22)
[2022-07-26] MEDS: FUROSEMIDE 40 MG/4 ML VIAL IV SCH ×2 (09:23→20:23)
[2022-07-26] MEDS: ENOXAPARIN INJ 40 MG/0.4 ML SYR SQ SCH ×2 (09:24→20:23)
[2022-07-26] MEDS: ADVANCED PROBIOTIC 1250 MG CAPSULE PO SCH (09:24)
[2022-07-26] MEDS: predniSONE 20 MG TAB PO SCH (09:25)
[2022-07-26] MEDS: POTASSIUM CHLORIDE CRTAB 20 MEQ TABCR PO SCH ×2 (09:25→20:24)
[2022-07-26] MEDS: CYANOCOBALAMIN (B-12) 500 MCG TABLET PO SCH (09:25)
[2022-07-26] MEDS: CITALOPRAM 20 MG TAB PO SCH (09:26)
[2022-07-26] MEDS: CALCIUM 600MG + VIT D 400 IU TAB PO SCH ×2 (09:26→20:25)
[2022-07-26] MEDS: VALSARTAN 80 MG TAB PO SCH (09:26)
[2022-07-26] MEDS: METOPROLOL SUCC 50MG EXT REL TAB PO SCH (09:26)
[2022-07-26] MEDS: CLOTRIMAZOLE 1% CR 15 GM TUBE TOP SCH ×2 (09:27→20:24)
[2022-07-26] MEDS: DEXTROSE 5% IV SCH (09:29)
[2022-07-26] MEDS: ACETAZOLAMIDE IV SCH (09:29)
[2022-07-26 09:49] LABS: BUN Creatinine Ratio 18.3 (10-20); Calcium 8.8 mg/dl (8.5-10.1); Creatinine Clr Calc Pharmacy 88.6 ml/min; Est GFR (African American) 93.4 ml/min; Est GFR (Non-African American) 80.6 ml/min; Magnesium 1.5 mg/dl (1.7-2.4); Potassium 3.4 mmol/L (3.5-5.1)
[2022-07-26 10:06] LABS: BUN Creatinine Ratio 20.5 (10-20); Calcium 8.7 mg/dl (8.5-10.1); Creatinine Clr Calc Pharmacy 93.1 ml/min; Est GFR (African American) 99.2 ml/min; Est GFR (Non-African American) 85.6 ml/min; Magnesium 1.4 mg/dl (1.7-2.4); Potassium 3.6 mmol/L (3.5-5.1)
--- NOTE | 2022-07-26 10:54 | Cardiology Progress Note ---
Date of Service July 26, 2022 Assessment & Plan (1) Pulmonary hypertension: (2) Idiopathic interstitial pneumonia: (3) Hypoxia: (4) Cor pulmonale: (5) Leg edema: Plan The patient's echocardiogram revealed signs of severe pulmonary hypertension and right-sided heart failure which is consistent with her progressive lung disease From a cardiac standpoint would recommend continued diuretic therapy and her twice daily Lasix should be continued at this time No other medication changes we made at this time Electrolytes should be followed and repleted as necessary Admission and Anticipated Discharge Date Admission Date: July 23, 2022 Subjective Patient seen and examined. Chart reviewed. Telemetry reviewed. States lower extremity edema is starting to improve. Review of Systems Review of Systems: All systems reviewed & are unremarkable except as noted in HPI & below Physical Exam Physical Exam: General: Awake, alert and oriented x 3. No acute distress. HEENT: Normocephalic, atraumatic. Pupils equal, round and reactive to light and accommodation. Extraocular muscles are intact. Anicteric sclera. Moist mucous membranes. Neck: No JVD. No bruit. Cardiovascular: Regular. Positive S-4. Normal S-1 and S-2. No S-3. 3/6 holosystolic ejection murmur, 5th intercostal space, mid-clavicular line without radiation. No rubs. Pulmonary: Clear to auscultation bilaterally. No rales, rhonchi, or wheezing. Abdomen: Bowel sounds x 4, soft. No rebound, guarding or tenderness. No organomegaly. Extremities: No clubbing, cyanosis or edema. +2 pedal pulses bilaterally. Skin: Warm and dry. Results & Data ([facility]) Vital Signs (Past 12 Hours) Vital Signs Temp Pulse Pulse Resp BP Pulse Ox O2 Del Method 07/26/22 09:33 93 H 120/83 07/26/22 07:16 36.4 C L 79 20 135/88 95 Nasal Cannula 07/26/22 07:08 77 20 95 Nasal Cannula 07/26/22 00:00 73 07/26/22 03:41 36.5 C 71 18 118/80 97 Nasal Cannula 07/25/22 23:48 36.7 C 88 18 106/76 91 Nasal Cannula O2 Flow Rate 07/26/22 09:33 07/26/22 07:16 4 07/26/22 07:08 5 07/26/22 00:00 07/26/22 03:41 6 07/25/22 23:48 6
--- NOTE | 2022-07-26 12:02 | Pulmonology Progress Note ---
Date of Service July 26, 2022 Assessment & Plan (1) Pulmonary hypertension: Plan: Unfortunate 57-year-old female with ILD secondary to COVID-19 pneumonia requiring escalating home O2 and ongoing medical management. Found to have severe pulmonary hypertension and hypervolemic status. Clinically, the patient appears better today. She is down to 4 L nasal cannula. She appears less breathless when conversing. She is 6.3 liters negative at this point. Continue with Diamox for the 4-day course. Continue with Lasix twice daily as scheduled. Agree with monitoring electrolytes closely and replace as needed. Hopefully diuresing will help overall symptom improvement to get her closer to her baseline. She is encouraged that she is feeling better and will follow up in the outpatient otherwise. Thank you for allowing us to participate in the care of this patient. (2) Cor pulmonale: (3) Leg edema: (4) COVID-19 long hauler: (5) Hypoxia: Admission and Anticipated Discharge Date Admission Date: July 23, 2022 Supervising Physician Co-Signing Physician Notes Patient seen and examined. EMR reviewed. Discussed with AMOS and agree with assessment plan as noted. The patient appears to be improving. Her oxygen requirement is decreasing. Continue to taper steroids as previously noted. We will try and convert diuretics to oral, Lasix 40 mg p.o. twice daily, and Diuril for an additional 24 hours. May consider the use of Aldactone 50 mg daily if potassium is okay. Once the patient is stable on her oxygen requirement and a stable dose of diuretics, she can be dismissed from the hospital and follow-up as noted previously. Feel free to contact us with additional questions. Subjective Patient seen and evaluated bedside today. She looks better today and reports that her breathing feels better as well. She has been up to the restroom multiple times. She states that her breathing is "worlds better". She is approximately 6 L negative at this point. Her oxygen requirement is down to 4 L. Overall, the patient reports feeling much better. Review of Systems Review of Systems: A complete 6 point review of systems was reviewed with the patient with pertinent positives and negatives as per history of present illness. All else were negative. Physical Exam Physical Exam: VITAL SIGNS - Vital signs and nursing notes were reviewed. GENERAL - 57-year-old female appearing her stated age who is in no acute distress. Communicates well with provider and answers questions appropriately. LUNGS - Chest wall symmetric without accessory muscle use, intercostals retractions, or central cyanosis. Normal vesicular breath sounds CTA B/L. Slight bibasilar rales. CARDIAC - RRR with S1/S2. No murmur, rubs, or gallops appreciated. EXTREMITIES - No clubbing or peripheral cyanosis. Significant edema noted to the bilateral lower extremities. +3/5 radial and dorsalis pedis pulses palpated throughout. +5/5 strength noted in UE/LE bilaterally. PSYCH - A&Ox3 and cooperates fully with examiner. Pt is very pleasant and interacts well with examiner. Results & Data Results & Data ([facility]) Vital Signs (Past 12 Hours) Vital Signs Temp Pulse Pulse Resp BP Pulse Ox O2 Del Method 07/26/22 11:30 88 20 86 L Nasal Cannula 07/26/22 11:14 36.7 C 84 19 115/82 86 L Nasal Cannula 07/26/22 09:33 93 H 120/83 07/26/22 07:16 36.4 C L 79 20 135/88 95 Nasal Cannula 07/26/22 07:08 77 20 95 Nasal Cannula 07/26/22 00:00 73 07/26/22 03:41 36.5 C 71 18 118/80 97 Nasal Cannula O2 Flow Rate 07/26/22 11:30 4 07/26/22 11:14 4 07/26/22 09:33 07/26/22 07:16 4 07/26/22 07:08 5 07/26/22 00:00 07/26/22 03:41 6 PG Care Time/CCT Total # of Minutes Spent Total Time Spent with Patient: Total time spent is greater than 50% in coordination of care (as documented) at patient's floor/unit and/or counseling patient: Coding Level of Care Code 33235 Subseq Hosp Care Lvl 2 Diagnoses Pulmonary hypertension I27.20 Cor pulmonale I27.81 Leg edema R60.0 COVID-19 long hauler U09.9 Hypoxia R09.02
[2022-07-26] MEDS: NEOMYCIN/POLYMYX/BACITR OINT 15 GM TUBE EXT SCH ×2 (12:37→20:25)
[2022-07-26] MEDS: MAGNESIUM SULFATE / D5W 1 GM/100 ML BAG IV SCH ×2 (12:37→14:21)
--- NOTE | 2022-07-26 13:33 | Pharmacy Report ---
Pharmacy Glycemic Short Note 2 - Date of Service July 26, 2022 - Glycemic Short BSG Results (Last 24 hours): 07/25/22 07/25/22 07/26/22 16:20 20:50 07:19 Glucose POC Glucose 165 H 132 H 46 L* 07/26/22 07/26/22 07/26/22 07:21 07:44 08:17 Glucose 124 H POC Glucose 48 L* 90 07/26/22 07/26/22 09:02 11:14 Glucose 201 H POC Glucose 173 H OUTPATIENT ANTIDIABETIC REGIMEN: * Metformin 2 gm PO daily * Jardiance 10 mg PO daily * Glipizide 10 mg PO daily * HbA1c: 12.3% (07/24/22) ASSESSMENT: 07/26/22: * Ms Syed had an episode of hypoglycemia this morning (BSG 48 mg/dL). Expect that this is due to significant reduction in steroids yesterday (SoluMedrol 40mg IV q8h --> prednisone 20mg daily). * Patient was transitioned from Lantus to NPH this morning to better match prednisone's effects on BSG. * The rationale for this approach is that the pharmacodynamics profile of NPH, with a peak effect of 4-8hrs and duration of action of 12-16hrs, mirrors the pharmacodynamics of prednisone. NPH should be dosed at the same time that prednisone is given. NPH will require dose reduction as steroid dose decreases. * Novolog parameters loosened this morning d/t BSG trend yesterday. * Will continue to follow and adjust as indicated. 07/24 * DM is a 57 year old female presents with worsening shortness of breath secondary to acute/chronic resp. failure * BSGs > 300 mg/dL on admission with sustained hyperglycemia likely related to IV steroids and inadequate initial insulin * Will give initial basal of ~0.4 unit/kg to cover steroids, tighten Novolog to weight-based/stress of 3 dosing, and utilize IV insulin boluses x 2 * Solu-medrol 40 mg IV q8h ordered ongoing, will adjust basal as needed when steroids change PLAN FOR INPATIENT GLYCEMIC CONTROL: * Hold outpatient oral diabetes medications * Basal insulin * NPH 15 units (~0.15 units/kg) SQ daily, while on prednisone 20mg daily * dosed somewhat conservatively in light of hypoglycemia this morning * Bolus insulin * NovoLog per scale ACHS or Q6hrs while NPO * Goal Range: Low 110 mg/dL - High 140 mg/dL * Correction Factor: 20 mg/dL/unit * Nutritional / Prandial insulin per carb ratio of 1 unit per 7 grams CHO consumed
--- NOTE | 2022-07-26 14:59 | Hospitalist Progress Note ---
Date of Service July 26, 2022 Assessment & Plan (1) Hypoxia: Plan: Patient is a 57 yr female who presents with worsening shortness of breath, [id number] respiratory failure. Rgsex-kt-cxjewcw respiratory failure with Hypoxia Chronic oxygen dependency--on 3-4 L at baseline Chronic interstitial lung disease--Possible Flare H/O COVID Pulmonary artery hypertension Chronic steroid dependence Respiratory failure likely multifactorial: Interstitial lung disease, PAH, Right-sided heart failure --CT Chest:Cardiomegaly without acute intrathoracic abnormality. Chronic interstitial lung disease with subpleural predominant cysts/honeycombing, s ubpleural reticulation with groundglass densities and bronchiectasis, right greater than left. The subpleural cystic changes/honeycombing has progressively worsened compared to the 05/06/2021 exam. Mildly improved mediastinal and hilar lymphadenopathy, likely related to the chronic interstitial lung disease. Cardiomegaly with evidence of pulmonary arterial hypertension. Unchanged fusiform dilation of the ascending thoracic aorta, 4.2 cm. --ECHO: EF 60 to 65%. Normal LV chamber size and wall thickness. No segmental left ventricle wall motion abnormality. Flattened septum is consistent with RV pressure/volume overload. D-shaped LV chamber. Grade 1 diastolic dysfunction. Right ventricle is severely dilated. Right ventricular systolic function is severely reduced. Mild aortic regurgitation. Severe tricuspid regurgitation. Severe pulmonary artery hypertension. -- Procalcitonin 0.05 --Blood cultures negative to date --Urine for Legionella Negative --Nasal MRSA Negative --Continue IV Solu-Medrol>> transition to prednisone taper course --Continue nebs, empiric antibiotics --Continue IV Lasix Monitor I's and O's, daily weight, electrolytes Appreciate Pulmonology/Cardiology Input Needs sleep study as outpatient Wean supplemental oxygen as able Also receiving Diamox Will need 2 step prior to discharge Mild troponin elevation Likely demand ischemia secondary to hypoxia Chronic hyponatremia Sodium 129 today Monitor sodium levels Vitamin D deficiency Continue vitamin D supplements Abnormal urinalysis Ruled out UTI Urine culture Negative cefepime discontinued DM II HbA1C 12.3 Continue insulin per protocol Monitor BGs Glycemic pharmacy consulted Hypocalcemia: Likely due to vitamin D deficiency Received IV calcium gluconate Monitor Hypomagnesemia Replete as needed Morbid obesity: BMI 41 Needs counseling Possible sleep apnea Patient refused sleep study as outpatient Depression: Continue citalopram Vitamin B12 deficiency: Continue vitamin B12 supplements. Hypothyroidism: Continue Levothyroxine Hypertension: Continue metoprolol, valsartan Hyperlipidemia: On statin. DVT Px: Lovenox SQ CODE STATUS Full code DISPOSITION: PT/OT prior to discharge Admission and Anticipated Discharge Date Admission Date: July 23, 2022 Subjective Patient is seen and examined at bedside Overall feels well States having minimal dyspnea on exertion Diuresing well No significant cough lower extremity edema slowly improving Denies any chest pain, dizziness, nausea, abdominal Less supplemental oxygen requirement today Review of Systems Review of Systems: All systems reviewed & are unremarkable except as noted in Subjective Physical Exam Physical Exam: Physical Exam: Vitals signs as noted above General Appearance:Morbidly obese, no apparent distress Head: normocephalic, Atraumatic Eyes: normal inspection, EOMI Neck: supple, Trachea midline Respiratory/Chest: Decreased breath sounds, basal crackles, No accessory muscle use Cardiovascular: S1, S2, No murmur Abdomen/GI:Soft, Non tender, Bowel sounds present Extremities/Musculoskeletal:normal inspection, 2+ B/L LE edema Neurologic/Psych:AAOX3, grossly no focal neurological deficits Skin: normal color, warm Results & Data Results & Data ([facility]) Vital Signs (Past 12 Hours) Vital Signs Temp Pulse Resp BP Pulse Ox O2 Del Method O2 Flow Rate 07/26/22 11:30 88 20 86 L Nasal Cannula 4 07/26/22 11:14 36.7 C 84 19 115/82 86 L Nasal Cannula 4 07/26/22 09:33 93 H 120/83 07/26/22 07:16 36.4 C L 79 20 135/88 95 Nasal Cannula 4 07/26/22 07:08 77 20 95 Nasal Cannula 5 07/26/22 03:41 36.5 C 71 18 118/80 97 Nasal Cannula 6 Laboratory Results Short CBC 07/26/22 Range/Units 08:17 WBC 12.29 H (4.8-10.8) K/ul Hgb 14.6 (12.0-16.0) g/dl Hct 44.9 (34.1-44.9) % Plt Count 270 (130-400) K/uL [facility] 07/26/22 07/26/22 08:17 09:02 Sodium 131 L 129 L Potassium 3.4 L 3.6 Chloride 80 L 80 L Carbon Dioxide 43 H* 43 H* BUN 15 16 Creatinine 0.82 0.78 Glucose 124 H 201 H Calcium 8.8 8.7
[2022-07-26] MEDS ORDERED: POTASSIUM CHLORIDE CRTAB 20 MEQ TABCR PO ONE (15:13)
[2022-07-26] MEDS: MAGNESIUM OXIDE 400 MG TAB PO SCH (20:22)
[2022-07-26] MEDS: acetaZOLAMIDE 250 MG in DEXTROSE 5% 100 ML IV SCH (20:22)
[2022-07-27] MEDS: LEVOTHYROXINE SODIUM 88 MCG TABLET PO SCH (06:05)
[2022-07-27] MEDS: ALBUT/IPRATROP 3MG/0.5MG NEB 3 ML VIAL NEB SCH ×4 (07:07→19:35)
[2022-07-27] MEDS: CARBOHYDRATES FOR HYPOGLYCEMIA PO PRN (07:15)
[2022-07-27 07:50] LABS: BUN Creatinine Ratio 21.6 (10-20); Calcium 8.9 mg/dl (8.5-10.1); Creatinine Clr Calc Pharmacy 82.6 ml/min; Est GFR (African American) 85.7 ml/min; Magnesium 1.9 mg/dl (1.7-2.4); Potassium 4.5 mmol/L (3.5-5.1)
[2022-07-27] MEDS: predniSONE 20 MG TAB PO SCH (08:14)
[2022-07-27] MEDS: MAGNESIUM OXIDE 400 MG TAB PO SCH ×2 (08:14→20:09)
[2022-07-27] MEDS: CYANOCOBALAMIN (B-12) 500 MCG TABLET PO SCH (08:14)
[2022-07-27] MEDS: NovoLIN-N (NPH) PER UNIT CHARGE SQ SCH (08:14)
[2022-07-27] MEDS: ROSUVASTATIN CALCIUM 5 MG TAB PO SCH (08:15)
[2022-07-27] MEDS: ENOXAPARIN INJ 40 MG/0.4 ML SYR SQ SCH ×2 (08:16→20:07)
[2022-07-27] MEDS: METOPROLOL SUCC 50MG EXT REL TAB PO SCH (08:16)
[2022-07-27] MEDS: FUROSEMIDE 40 MG/4 ML VIAL IV SCH ×2 (08:16→20:07)
[2022-07-27] MEDS: CLOTRIMAZOLE 1% CR 15 GM TUBE TOP SCH ×2 (08:17→20:06)
[2022-07-27] MEDS: NEOMYCIN/POLYMYX/BACITR OINT 15 GM TUBE EXT SCH ×2 (08:17→20:09)
[2022-07-27] MEDS: ADVANCED PROBIOTIC 1250 MG CAPSULE PO SCH (08:18)
[2022-07-27] MEDS: CITALOPRAM 20 MG TAB PO SCH (08:18)
[2022-07-27] MEDS: CALCIUM 600MG + VIT D 400 IU TAB PO SCH ×2 (08:19→20:10)
[2022-07-27] MEDS: VALSARTAN 80 MG TAB PO SCH (08:19)
[2022-07-27] MEDS: POTASSIUM CHLORIDE CRTAB 20 MEQ TABCR PO SCH ×2 (08:23→20:07)
[2022-07-27] MEDS: INSULIN ASPART PER UNIT SC SCH ×4 (08:24→20:33)
[2022-07-27 09:52] LABS: HCO3 ABG 41 mmol/L (19-24); Oxygen Saturation ABG 90.5 % (90-95); PCO2 ABG 57 mmHg (35-46); PO2 ABG 59 mmHg (80-95); pH ABG 7.46 (7.35-7.45)
[2022-07-27 09:56] LABS: Allen Test Pos (Pos)
[2022-07-27] MEDS: DEXTROSE 5% IV SCH (09:57)
[2022-07-27] MEDS: ACETAZOLAMIDE IV SCH (09:57)
--- NOTE | 2022-07-27 11:06 | Pharmacy Report ---
Pharmacy Glycemic Short Note 2 - Date of Service July 27, 2022 - Glycemic Short BSG Results (Last 24 hours): 07/26/22 07/26/22 07/26/22 11:14 16:10 20:01 Glucose POC Glucose 173 H 236 H 267 H 07/27/22 07/27/22 07/27/22 06:42 06:57 06:57 Glucose 48 L* POC Glucose 67 L* 72 07/27/22 07/27/22 07/27/22 07:16 07:18 07:33 Glucose POC Glucose 64 L* 62 L* 76 OUTPATIENT ANTIDIABETIC REGIMEN: * Metformin 2 gm PO daily * Glipizide 10 mg PO daily * HbA1c: 12.3% (07/24/22), could be affected by outpatient steroid use ASSESSMENT: 07/27/22: * This morning, the patient experienced another episode of hypoglycemia ( BSG 67 mg/dL). This may be due to overcorrection of previous nighttime BSG (267 mg/dL). * HS correction factor will be loosened to prevent opportunity for overcorrection of nightime BSG and subsequent hypoglycemic episodes. * Mealtime carb coverage will be tightened in observance of elevated postprandial BSG's * Will continue NPH 15 units daily alongside of prednisone 20mg daily to match pharmacokinetic peak. Will continue to avoid Lantus use due to low fasting BSG's. 07/26/22: * Ms Syed had an episode of hypoglycemia this morning (BSG 48 mg/dL). Expect that this is due to significant reduction in steroids yesterday (SoluMedrol 40mg IV q8h --> prednisone 20mg daily). * Patient was transitioned from Lantus to NPH this morning to better match prednisone's effects on BSG. * The rationale for this approach is that the pharmacodynamics profile of NPH, with a peak effect of 4-8hrs and duration of action of 12-16hrs, mirrors the pharmacodynamics of prednisone. NPH should be dosed at the same time that prednisone is given. NPH will require dose reduction as steroid dose decreases. * Novolog parameters loosened this morning d/t BSG trend yesterday. * Will continue to follow and adjust as indicated. 07/24 * DM is a 57 year old female presents with worsening shortness of breath secondary to acute/chronic resp. failure * BSGs > 300 mg/dL on admission with sustained hyperglycemia likely related to IV steroids and inadequate initial insulin * Will give initial basal of ~0.4 unit/kg to cover steroids, tighten Novolog to weight-based/stress of 3 dosing, and utilize IV insulin boluses x 2 * Solu-medrol 40 mg IV q8h ordered ongoing, will adjust basal as needed when steroids change PLAN FOR INPATIENT GLYCEMIC CONTROL: * Hold outpatient oral diabetes medications * Basal insulin * NPH 15 units (~0.15 units/kg) SQ daily, while on prednisone 20mg daily * Bolus insulin * NovoLog per scale ACHS or Q6hrs while NPO * Goal Range: Low 110 mg/dL - High 140 mg/dL * Correction Factor: 20 mg/dL/unit * Nutritional / Prandial insulin per carb ratio of 1 unit per 5 grams CHO consumed
--- NOTE | 2022-07-27 12:08 | Cardiology Progress Note ---
Date of Service July 27, 2022 Assessment & Plan (1) Pulmonary hypertension: (2) Idiopathic interstitial pneumonia: (3) Hypoxia: (4) Cor pulmonale: (5) Leg edema: Plan The patient's echocardiogram revealed signs of severe pulmonary hypertension and right-sided heart failure which is consistent with her progressive lung disease From a cardiac standpoint would recommend continued diuretic therapy and her twice daily Lasix should be continued at this time now almost 9 liters negative continued metabolic acidosis despite acetazolamide increased, will ask our nephrology colleagues for their input ABG with pH of 7.46, pCO2 57 and HCO3 of 41 Admission and Anticipated Discharge Date Admission Date: July 23, 2022 Subjective Pt seen and examined. Chart reviewed. Telemetry reviewed. Review of Systems Review of Systems: All systems reviewed & are unremarkable except as noted in HPI & below Physical Exam Physical Exam: General: Awake, alert and oriented x 3. No acute distress. HEENT: Normocephalic, atraumatic. Pupils equal, round and reactive to light and accommodation. Extraocular muscles are intact. Anicteric sclera. Moist mucous membranes. Neck: No JVD. No bruit. Cardiovascular: Regular. Positive S-4. Normal S-1 and S-2. No S-3. 3/6 holosystolic ejection murmur, 5th intercostal space, mid-clavicular line without radiation. No rubs. Pulmonary: Clear to auscultation bilaterally. No rales, rhonchi, or wheezing. Abdomen: Bowel sounds x 4, soft. No rebound, guarding or tenderness. No organomegaly. Extremities: No clubbing, cyanosis or edema. +2 pedal pulses bilaterally. Skin: Warm and dry. Results & Data ([facility]) Vital Signs (Past 12 Hours) Vital Signs Temp Pulse Resp BP Pulse Ox O2 Del Method O2 Flow Rate 07/27/22 11:22 60 20 92 Nasal Cannula 5 07/27/22 11:18 36.9 C 60 18 108/72 93 Nasal Cannula 4.5 07/27/22 08:00 Nasal Cannula 6 07/27/22 07:08 67 18 93 Nasal Cannula 6 07/27/22 06:58 36.4 C L 67 19 104/70 90 Nasal Cannula 07/27/22 03:13 36.5 C 70 18 106/74 90 Nasal Cannula
--- NOTE | 2022-07-27 13:09 | Nephrology Consultation ---
Date of Consultation July 27, 2022 Assessment & Plan (1) Metabolic alkalosis with respiratory acidosis: Currently on lasix 40 mg IV bid and acetazolamide 500 mg AM, 250 mg PM >> 8L negative since admission -continue current diuretics for now > would not switch to po yet -continue pulm f/u -daily bmp History of Present Illness Reason for Consultation: metabolic acidosis Requesting Physician: Dr Rae Attending Physician: Ambrose Abbott MD History of Present Illness 57 y/o F whom I'm asked to see for metabolic acidosis was admitted 07/24 for acute on chronic respiratory failure attributed to interstitial lung dz flare. PMH includes diabetes, hyperlipidemia, hypothyroidism, history of hyponatremia, interstitial lung disease on chronic steroids and w/ post Covid pulmonary fibrosis and chronic respiratory failure on home oxygen 3-4 liters, hypertension, pulmonary hypertension, mild aortic regurgitation, obesity, Had covid august 2020, on 02NC ever since. she had had some LE edema a few days prior to admission but this improved w/ stopping her OP amlodipine. her prednisone had been increased to 15 mg daily and lasix also increased to 20 mg bid. none of these measures helped her breathing prior to admission and she came in her edema is markedly improved since admission though still notable. sob and cough stable to a bit better, no n/v, no confusion, no new/worrisome voiding sx, no chest pain or palpitations. she is currently on 40 mg iv bid and acetazolamide w/ 500 mg IV in am and 250 mg IV in pm. she is over 8L negative since admission. Allergies Allergy/AdvReac Type Severity Reaction Status Date / Time No Known Allergies Allergy Verified 07/23/22 21:15 Home Medications Medication Instructions Recorded Confirmed Type glipizide 10 mg tablet, extended 10 mg PO QDD 05/06/21 07/23/22 History release 24 hr levothyroxine 88 mcg tablet 88 mcg PO DAILYBB 05/06/21 07/23/22 History metformin 500 mg tablet,extended 2,000 mg PO QDD 05/06/21 07/23/22 History release 24 hr metoprolol succinate 100 mg 100 mg PO QAM 05/06/21 07/23/22 History tablet,extended release 24 hr rosuvastatin 5 mg tablet 5 mg PO 2XWK 05/06/21 07/23/22 History Oxygen Home #1 ea 05/08/21 Rx cefdinir 300 mg capsule 300 mg PO BID #10 caps 05/08/21 07/23/22 Rx L.acidoph-L.rhamn-B.bifidum-B.long 1 tab PO DAILY 07/23/22 07/23/22 History 12.9 mg (2 billion cell) tabletDR (Probiotic Acidophilus Jacek) albuterol sulfate 90 mcg/actuation 2 puff inhalation Q6H PRN Wheezing 07/23/22 07/23/22 History aerosol inhaler apple cider vinegar 500 mg tablet 500 mg PO DAILY 07/23/22 07/23/22 History benzonatate 100 mg capsule 100 mg PO TID PRN Cough 07/23/22 07/23/22 History citalopram 10 mg tablet 10 mg PO QAM 07/23/22 07/23/22 History clotrimazole 1 % topical cream 1 applic topical BID 07/23/22 07/23/22 History codeine 10 mg-guaifenesin 100 mg/5 10 ml PO Q6H PRN Cough 07/23/22 07/23/22 History mL oral liquid (Guaifenesin AC) cyanocobalamin (vitamin B-12) 1,000 mcg PO DAILY 07/23/22 07/23/22 History 1,000 mcg tablet (Vitamin B-12) empagliflozin 10 mg tablet 10 mg PO QAM 07/23/22 History (Jardiance) furosemide 20 mg tablet (Lasix) 20 mg PO DAILY 07/23/22 07/23/22 History milk thistle 150 mg capsule 150 mg PO DAILY 07/23/22 07/23/22 History omega 3-wpj-ezg-fish oil 1,000 mg 1 cap PO DAILY 07/23/22 07/23/22 History (120 mg-180 mg) capsule (Fish Oil) prednisone 10 mg tablet 15 mg PO DAILY 07/23/22 07/23/22 History valsartan 320 mg tablet 320 mg PO DAILY 07/23/22 07/23/22 History Patient History Medical History COVID-19 long hauler Hypomagnesemia Hyponatremia Hypoxia Idiopathic interstitial pneumonia Pneumonia due to COVID-19 virus Pulmonary hypertension Type 2 diabetes mellitus Family History Other Family history non-contributory Social History Smoking Status: Never smoker Hx Alcohol Use: No Hx Substance Use: No Preferred Language: Comor[place] Communication Ability: Effective Pmp Required: No Beliefs That Will Affect Care: None marital status: / Current Living Situation: Family Current Living Situation Comment: son How many Children do You have: 1 Feels Safe at Home: Yes Safety Concerns: Feels Safe At This Time Assistive Devices: Oxygen - Continuous Review of Systems Review of Systems: All systems reviewed & are unremarkable except as noted in HPI & below Physical Exam Constitutional: well developed, well nourished and cooperative; no acute distress Eyes: EOM intact bilaterally ENMT: Ears: no external ear abnormality Nose: no external nose abnormality Mouth: + dry oral mucous membranes Neck: no nuchal rigidity Respiratory: normal respiratory effort Auscultation: + diminished lung sounds and + crackles (3/4 way up posterior rowe) Cardiovascular: Rate/Rhythm: regular rate and regular rhythm Heart Sounds: + murmur Extremities: + edema Gastrointestinal (Abdomen): Inspection/Auscultation: normal bowel sounds Percussion/Palpation: abdomen soft; abdomen nontender Musculoskeletal: Extremities: strength 5/5 throughout Skin: no rashes, warm and dry Neurologic: delgado, fluent speech, no tremor Psychiatric: Orientation: alert and oriented x 3 Speech: normal rate/rhythm/volume of speech Results & Data ([facility]) Vital Signs (Past 12 Hours) Vital Signs Temp Pulse Resp BP Pulse Ox O2 Del Method O2 Flow Rate 07/27/22 11:22 60 20 92 Nasal Cannula 5 07/27/22 11:18 36.9 C 60 18 108/72 93 Nasal Cannula 4.5 07/27/22 08:00 Nasal Cannula 6 07/27/22 07:08 67 18 93 Nasal Cannula 6 07/27/22 06:58 36.4 C L 67 19 104/70 90 Nasal Cannula 07/27/22 03:13 36.5 C 70 18 106/74 90 Nasal Cannula Laboratory Results 07/26/22 08:17 07/27/22 06:42 ABG 7.46/ 57/ 59/ 41 on 5L Diagnostic Findings CT chest non con 12/11 FINDINGS: No thyroid nodule identified. Mediastinal and hilar lymphadenopathy redemonstrated, mildly improved from prior study. Paratracheal lymph nodes measure up to approximately 1.3 cm. Moderate cardiomegaly with extensive coronary artery calcifications. Trace pericardial effusion. Mild fusiform dilation of the ascending thoracic aorta measuring 4.2 cm is unchanged. Dilated pulmonary artery, 4.3 cm. No pneumothorax, pleural effusion or overt pulmonary edema. Mild tracheobronchial secretions. Subpleural cystic changes are most pronounced within the right lung apex and right lung base. Traction bronchiectasis with subpleural reticulation with intermixed groundglass densities. There is improved aeration of the lungs compared to the prior study. No suspicious pulmonary nodules or masses are identified. Cystic changes/bronchiectasis have progressed from the prior study. Nonspecific bilateral perinephric stranding. Hepatomegaly with hepatic steatosis. Mild generalized body wall edema. Probable sebaceous cyst of the upper back to the midline, 1.4 cm. No acute fracture. Degenerative changes of the shoulders and spine. IMPRESSION: 1. Cardiomegaly without acute intrathoracic abnormality. 2. Chronic interstitial lung disease with subpleural predominant cysts/honeycombing, subpleural reticulation with groundglass densities and bronchiectasis, right greater than left. The subpleural cystic changes/honeycombing has progressively worsened compared to the 05/06/2021 exam. 3. Mildly improved mediastinal and hilar lymphadenopathy, likely related to the chronic interstitial lung disease. 4. Cardiomegaly with evidence of pulmonary arterial hypertension. 5. Unchanged fusiform dilation of the ascending thoracic aorta, 4.2 cm. TTE 07/23 normal LV chamber size, wall thcknss, syst fnxn. Severe RV dilatation and reduction in RV function w/ severe TR and severe plm HTN PASP 76 mm
--- NOTE | 2022-07-27 13:28 | Pulmonology Progress Note ---
Date of Service July 27, 2022 Assessment & Plan (1) Pulmonary hypertension: Plan: Unfortunate 57-year-old female with ILD secondary to COVID-19 pneumonia requiring escalating home O2 and ongoing medical management. Found to have severe pulmonary hypertension and hypervolemic status. * Patient continues to appear well. She does look a little more tired today than yesterday, but she has backed down to 4 L nasal cannula. * She has been diuresing well and is currently greater than 8 L NEGATIVE. * She reports improvement in her symptoms overall. * As her volume and respiratory statues improve, it is with hopes that she can be transitioned to oral diuretic therapy for discharge. * She is welcome to follow-up in the pulmonary clinic for ongoing pulmonary hypertension workup. Thank you for allowing us to participate in the care of this patient. (2) Cor pulmonale: (3) Leg edema: (4) COVID-19 long hauler: (5) Hypoxia: Admission and Anticipated Discharge Date Admission Date: July 23, 2022 Supervising Physician Co-Signing Physician Notes Patient seen and examined. EMR reviewed. Discussed with AMOS and agree with assessment plan as noted. Patient continues to improve with diuresis. Her edema is improving but not yet resolved. Continue aggressive attempts at diuresis. Will defer to cardiology and the primary service transition to oral diuretics. Patient's oxygen requirement has improved back to her baseline. Continue to wean prednisone decreasing by 2-1/2 mg every 2 weeks until off. She can follow-up with Dr. Almanzar in the outpatient setting at discharge. Above recommendations and plan were again discussed with the patient at bedside. At this point time pulmonary will sign off. Feel free to contact us if we can be of additional assistance. Subjective Patient seen and evaluated by myself. She reports feeling tired today, but does state that her breathing continues to improve. She was on 4 L nasal cannula at this time. She has to use 6 L when she ambulates to and from the restroom. She reports improvement of the swelling of her feet. She has also reported a cough which developed after her nebulized treatments but then resolves shortly after. Overall, she is feeling well and is hopeful for discharge soon. Review of Systems Review of Systems: A complete 6 point review of systems was reviewed with the patient with pertinent positives and negatives as per history of present illness. All else were negative. Physical Exam Physical Exam: VITAL SIGNS - Vital signs and nursing notes were reviewed. GENERAL - 57-year-old female appearing her stated age who is in no acute distress. Communicates well with provider and answers questions appropriately. LUNGS - Chest wall symmetric without accessory muscle use, intercostals retractions, or central cyanosis. Normal vesicular breath sounds CTA B/L. Slight bibasilar rales. CARDIAC - RRR with S1/S2. No murmur, rubs, or gallops appreciated. EXTREMITIES - No clubbing or peripheral cyanosis. Significant edema noted to the bilateral lower extremities. +3/5 radial and dorsalis pedis pulses palpated throughout. +5/5 strength noted in UE/LE bilaterally. PSYCH - A&Ox3 and cooperates fully with examiner. Pt is very pleasant and interacts well with examiner. Results & Data Results & Data ([facility]) Vital Signs (Past 12 Hours) Vital Signs Temp Pulse Resp BP Pulse Ox O2 Del Method O2 Flow Rate 07/27/22 11:22 60 20 92 Nasal Cannula 5 07/27/22 11:18 36.9 C 60 18 108/72 93 Nasal Cannula 4.5 07/27/22 08:00 Nasal Cannula 6 07/27/22 07:08 67 18 93 Nasal Cannula 6 07/27/22 06:58 36.4 C L 67 19 104/70 90 Nasal Cannula 07/27/22 03:13 36.5 C 70 18 106/74 90 Nasal Cannula PG Care Time/CCT Total # of Minutes Spent Total Time Spent with Patient: Total time spent is greater than 50% in coordination of care (as documented) at patient's floor/unit and/or counseling patient: Coding Level of Care Code 52179 Subseq Hosp Care Lvl 2 Diagnoses Pulmonary hypertension I27.20 Cor pulmonale I27.81 Leg edema R60.0 COVID-19 long hauler U09.9 Hypoxia R09.02
--- NOTE | 2022-07-27 15:56 | Hospitalist Progress Note ---
Date of Service July 27, 2022 Assessment & Plan (1) Hypoxia: Plan: Patient is a 57 yr female who presents with worsening shortness of breath, [id number] respiratory failure. [id number] respiratory failure with Hypoxia Chronic oxygen dependency--on 3-4 L at baseline Chronic interstitial lung disease--Possible Flare H/O COVID Pulmonary artery hypertension Cor pulmonale Chronic steroid dependence Respiratory failure likely multifactorial: Interstitial lung disease, PAH, Right-sided heart failure Metabolic alkalosis --CT Chest:Cardiomegaly without acute intrathoracic abnormality. Chronic interstitial lung disease with subpleural predominant cysts/honeycombing, subpleural reticulation with groundglass densities and bronchiectasis, right greater than left. The subpleural cystic changes/honeycombing has progressively worsened compared to the 05/06/2021 exam. Mildly improved mediastinal and hilar lymphadenopathy, likely related to the chronic interstitial lung disease. Cardiomegaly with evidence of pulmonary arterial hypertension. Unchanged fusiform dilation of the ascending thoracic aorta, 4.2 cm. --ECHO: EF 60 to 65%. Normal LV chamber size and wall thickness. No segmental left ventricle wall motion abnormality. Flattened septum is consistent with RV pressure/volume overload. D-shaped LV chamber. Grade 1 diastolic dysfunction. Right ventricle is severely dilated. Right ventricular systolic function is severely reduced. Mild aortic regurgitation. Severe tricuspid regurgitation. Severe pulmonary artery hypertension. -- Procalcitonin 0.05 --Blood cultures negative to date --Urine for Legionella Negative --Nasal MRSA Negative --Continue IV Solu-Medrol>> transition to prednisone taper course --Continue nebs, empiric antibiotics --Continue IV Lasix Monitor I's and O's, daily weight, electrolytes Appreciate Pulmonology/Cardiology Input Needs sleep study as outpatient Wean supplemental oxygen as able Also receiving Diamox Nephrology consulted as well Mild troponin elevation Likely demand ischemia secondary to hypoxia Chronic hyponatremia Sodium 132 today Monitor sodium levels Vitamin D deficiency Continue vitamin D supplements Abnormal urinalysis Ruled out UTI Urine culture Negative cefepime discontinued DM II HbA1C 12.3 Continue insulin per protocol Monitor BGs Glycemic pharmacy consulted Hypocalcemia: Likely due to vitamin D deficiency Received IV calcium gluconate Monitor Hypomagnesemia Replete as needed Morbid obesity: BMI 41 Needs counseling Possible sleep apnea Patient refused sleep study as outpatient Depression: Continue citalopram Vitamin B12 deficiency: Continue vitamin B12 supplements. Hypothyroidism: Continue Levothyroxine Hypertension: Continue metoprolol, valsartan Hyperlipidemia: On statin. DVT Px: Lovenox SQ CODE STATUS Full code DISPOSITION: PT/OT prior to discharge Admission and Anticipated Discharge Date Admission Date: July 23, 2022 Subjective Patient is seen and examined at bedside States having cough with yellow expectoration Still has significant lower extremity edema Discussed with nephrology today Had some dyspnea on exertion Denies any chest pain, dizziness, nausea, abdominal Hypoglycemic this morning Review of Systems Review of Systems: All systems reviewed & are unremarkable except as noted in Subjective Physical Exam Physical Exam: Physical Exam: Vitals signs as noted above General Appearance:Morbidly obese, no apparent distress Head: normocephalic, Atraumatic Eyes: normal inspection, EOMI Neck: supple, Trachea midline Respiratory/Chest: Decreased breath sounds, basal crackles, No accessory muscle use Cardiovascular: S1, S2, No murmur Abdomen/GI:Soft, Non tender, Bowel sounds present Extremities/Musculoskeletal:normal inspection, 2+ B/L LE edema Neurologic/Psych:AAOX3, grossly no focal neurological deficits Skin: normal color, warm Results & Data Results & Data ([facility]) Vital Signs (Past 12 Hours) Vital Signs Temp Pulse Resp BP Pulse Ox O2 Del Method O2 Flow Rate 07/27/22 15:44 76 20 87 L Nasal Cannula 5 07/27/22 15:03 37.0 C 74 20 115/78 91 Nasal Cannula 5.5 07/27/22 11:22 60 20 92 Nasal Cannula 5 07/27/22 11:18 36.9 C 60 18 108/72 93 Nasal Cannula 4.5 07/27/22 08:00 Nasal Cannula 6 07/27/22 07:08 67 18 93 Nasal Cannula 6 07/27/22 06:58 36.4 C L 67 19 104/70 90 Nasal Cannula Laboratory Results BMP 07/27/22 06:42 Sodium 132 L Potassium 4.5 D Chloride 85 L Carbon Dioxide 44 H* BUN 19 Creatinine 0.88 Glucose 48 L* Calcium 8.9
[2022-07-27] MEDS: acetaZOLAMIDE 250 MG in DEXTROSE 5% 100 ML IV SCH (20:16)
[2022-07-28] MEDS: LEVOTHYROXINE SODIUM 88 MCG TABLET PO SCH (05:56)
[2022-07-28] MEDS: ALBUT/IPRATROP 3MG/0.5MG NEB 3 ML VIAL NEB SCH ×4 (07:04→21:09)
[2022-07-28 07:35] LABS: Hematocrit (blood only) 42.6 % (34.1-44.9); Hemoglobin 13.7 g/dl (12.0-16.0); Mean Corpuscular Hgb Conc 32.2 g/dL (32.0-36.0); Mean Corpuscular Volume 86.9 fL (80.0-100.0); Mean Platelet Volume 10.4 fL (9.4-12.3); Nucleated RBC # (auto) 0.03 K/uL (0-0); Nucleated RBC % (auto) 0.3 %; Platelet Count 244 K/uL (130-400); RDW Coefficient of Variation 16.8 % (11.5-14.5); RDW Standard Deviation 52.9 fL (36.4-46.3); White Blood Count 10.09 K/ul (4.8-10.8)
[2022-07-28 07:57] LABS: BUN Creatinine Ratio 23.9 (10-20); Calcium 8.9 mg/dl (8.5-10.1); Creatinine Clr Calc Pharmacy 79.5 ml/min; Est GFR (African American) 81.2 ml/min; Est GFR (Non-African American) 70.1 ml/min
[2022-07-28] MEDS: INSULIN ASPART PER UNIT SC SCH ×4 (08:27→20:18)
[2022-07-28] MEDS: CALCIUM 600MG + VIT D 400 IU TAB PO SCH ×2 (08:32→20:07)
[2022-07-28] MEDS: POTASSIUM CHLORIDE CRTAB 20 MEQ TABCR PO SCH ×2 (08:32→20:09)
[2022-07-28] MEDS: DEXTROSE 5% IV SCH (08:32)
[2022-07-28] MEDS: ACETAZOLAMIDE IV SCH (08:32)
[2022-07-28] MEDS: VALSARTAN 80 MG TAB PO SCH (08:32)
[2022-07-28] MEDS: CLOTRIMAZOLE 1% CR 15 GM TUBE TOP SCH ×2 (08:33→21:59)
[2022-07-28] MEDS: NovoLIN-N (NPH) PER UNIT CHARGE SQ SCH (08:33)
[2022-07-28] MEDS: predniSONE 20 MG TAB PO SCH (08:33)
[2022-07-28] MEDS: FUROSEMIDE 40 MG/4 ML VIAL IV SCH ×3 (08:33→18:06)
[2022-07-28] MEDS: MAGNESIUM OXIDE 400 MG TAB PO SCH ×2 (08:34→20:08)
[2022-07-28] MEDS: CITALOPRAM 20 MG TAB PO SCH (08:34)
[2022-07-28] MEDS: NEOMYCIN/POLYMYX/BACITR OINT 15 GM TUBE EXT SCH ×2 (08:34→21:59)
[2022-07-28] MEDS: ADVANCED PROBIOTIC 1250 MG CAPSULE PO SCH (08:34)
[2022-07-28] MEDS: ENOXAPARIN INJ 40 MG/0.4 ML SYR SQ SCH ×2 (08:35→20:07)
[2022-07-28] MEDS: CYANOCOBALAMIN (B-12) 500 MCG TABLET PO SCH (08:35)
[2022-07-28] MEDS: METOPROLOL SUCC 50MG EXT REL TAB PO SCH (08:36)
--- NOTE | 2022-07-28 09:59 | Nephrology Progress Note ---
Date of Service July 28, 2022 Assessment & Plan (1) Metabolic alkalosis with respiratory acidosis: Plan: Currently on lasix 40 mg IV bid and acetazolamide 500 mg AM, 250 mg PM IV >> 9.9L negative since admission but w/ increasing/high 02 needs on high baseline n eeds -no po diuretics yet -daily bmp >acid base issues for now are stabilized > chronic respiratory acidosis now with contraction alkalosis; at some risk for acute renal failure w/ diuresis (2) Acute and chronic respiratory failure: Plan: multifactorial from post covid fibrosis and pulmonary HTN, acute cor pulmonale. She uses 3L at baseline and 4L w/ exertion. Currently needing 5-5.5 L at rest. In January 2022 her PH was moderate and now is severe. >intensify diuresis>> lasix 30 mg IV dosed at 6, noon, 1800 starting tomorrow; will work to get 3 doses in today as well ; also intensified acetazolamide to 500 mg IV bid; consider adding metolazone -diuretics limited potentially by hypotension >> lowered ARB dose to 80 mg daily starting tomorrow >>again to adequately diurese, may need to consider milrinone or dobutamine; wi ll d/w cardiology -defer to pulmonary but ? need for bipap hs at least while in hospital -standing weight only; dietary measures as above -may need to consider tertiary care depending on course Admission and Anticipated Discharge Date Admission Date: July 23, 2022 Subjective overall she feels well and better than at admission or earlier this fall in terms of both berto and breathing; denies voiding concerns; not palpably sob. + thirst w/ FR Review of Systems Review of Systems: All systems reviewed & are unremarkable except as noted in Subjective Physical Exam Constitutional: well developed, well nourished and cooperative; no acute distress Eyes: EOM intact bilaterally ENMT: Ears: no external ear abnormality Nose: no external nose abnormality Mouth: + dry oral mucous membranes Neck: no nuchal rigidity Respiratory: normal respiratory effort Auscultation: + diminished lung sounds and + crackles (3/4 way up posterior rowe) Cardiovascular: Rate/Rhythm: regular rate and regular rhythm Heart Sounds: + murmur Extremities: + edema (3+ BL to knees) Gastrointestinal (Abdomen): Inspection/Auscultation: normal bowel sounds Percussion/Palpation: abdomen soft; abdomen nontender Musculoskeletal: Extremities: strength 5/5 throughout Skin: no rashes, warm and dry Psychiatric: Orientation: alert and oriented x 3 Speech: normal rate/r hythm/volume of speech Results & Data ([facility]) Vital Signs (Past 12 Hours) Vital Signs Temp Pulse Pulse Resp BP Pulse Ox O2 Del Method 07/28/22 07:22 105 H 22 90 Nasal Cannula 07/28/22 06:50 36.5 C 63 18 96/68 L 93 Nasal Cannula 07/28/22 02:45 36.6 C 64 18 112/77 94 Nasal Cannula 07/27/22 23:26 71 07/27/22 23:05 37.1 C 66 18 97/67 L 95 Nasal Cannula O2 Flow Rate 07/28/22 07:22 5 07/28/22 06:50 5.5 07/28/22 02:45 5.5 07/27/22 23:26 07/27/22 23:05 5.5 Laboratory Results 07/28/22 07:06 07/28/22 07:06
--- NOTE | 2022-07-28 10:43 | Pharmacy Report ---
Pharmacy Glycemic Short Note 2 - Date of Service July 28, 2022 - Glycemic Short BSG Results (Last 24 hours): 07/27/22 07/27/22 07/27/22 11:19 16:14 20:14 Glucose POC Glucose 289 H 266 H 191 H 07/28/22 07/28/22 07:06 07:21 Glucose 73 POC Glucose 90 OUTPATIENT ANTIDIABETIC REGIMEN: * Metformin 2 gm PO daily * Glipizide 10 mg PO daily * HbA1c: 12.3% (07/24/22), could be affected by outpatient steroid use ASSESSMENT: 07/28/22 * Stressors stable * AM fasting BSG still below goal range but not hypoglycemic and is trending up from yesterday - no change to NPH * Post-prandial BSG's elevated. Will tighten Novolog parameters AC but leave looser HS 07/27/22: * This morning, the patient experienced another episode of hypoglycemia ( BSG 67 mg/dL). This may be due to overcorrection of previous nighttime BSG (267 mg/dL). * HS correction factor will be loosened to prevent opportunity for overcorrection of nightime BSG and subsequent hypoglycemic episodes. * Mealtime carb coverage will be tightened in observance of elevated postprandial BSG's * Will continue NPH 15 units daily alongside of prednisone 20mg daily to match pharmacokinetic peak. Will continue to avoid Lantus use due to low fasting BSG's. 07/26/22: * Ms Syed had an episode of hypoglycemia this morning (BSG 48 mg/dL). Expect that this is due to significant reduction in steroids yesterday (SoluMedrol 40mg IV q8h --> prednisone 20mg daily). * Patient was transitioned from Lantus to NPH this morning to better match prednisone's effects on BSG. * The rationale for this approach is that the pharmacodynamics profile of NPH, with a peak effect of 4-8hrs and duration of action of 12-16hrs, mirrors the pharmacodynamics of prednisone. NPH should be dosed at the same time that prednisone is given. NPH will require dose reduction as steroid dose decreases. * Novolog parameters loosened this morning d/t BSG trend yesterday. * Will continue to follow and adjust as indicated. 07/24 * DM is a 57 year old female presents with worsening shortness of breath secondary to acute/chronic resp. failure * BSGs > 300 mg/dL on admission with sustained hyperglycemia likely related to IV steroids and inadequate initial insulin * Will give initial basal of ~0.4 unit/kg to cover steroids, tighten Novolog to weight-based/stress of 3 dosing, and utilize IV insulin boluses x 2 * Solu-medrol 40 mg IV q8h ordered ongoing, will adjust basal as needed when steroids change PLAN FOR INPATIENT GLYCEMIC CONTROL: * Hold outpatient oral diabetes medications * Basal insulin * NPH 15 units (~0.15 units/kg) SQ daily, while on prednisone 20mg daily * Bolus insulin * NovoLog per scale ACHS or Q6hrs while NPO * Goal Range: Low 110 mg/dL - High 140 mg/dL * Correction Factor: 15 mg/dL/unit with breakfast, lunch and dinner. 30 mg/dL/unit at HS * Carb ratio: 4 g CHO/unit with breakfast, lunch and dinner. 5 g CHO/unit at HS
--- NOTE | 2022-07-28 11:56 | Cardiology Progress Note ---
Date of Service July 28, 2022 Assessment & Plan (1) Pulmonary hypertension: (2) Idiopathic interstitial pneumonia: (3) Hypoxia: (4) Cor pulmonale: (5) Leg edema: (6) Respiratory acidosis: (7) Metabolic alkalosis: (8) Hypotension: (9) Volume overload: (10) Chronic respiratory failure with hypoxia: Plan The patient's echocardiogram revealed signs of severe pulmonary hypertension and right-sided heart failure which is consistent with her progressive lung disease From a cardiac standpoint would recommend continued diuretic therapy and her twice daily Lasix should be continued at this time now almost 10 liters negative now with decreasing BP with continued diuresis still examines as significantly volume overloaded requiring 4L of O2 discussed with our nephrology colleagues they agree that she would benefit from continued diuresis Unfortunately, with borderline hypotension will likely require vassopressor support to facilitate diuresis would recommend transfer to ICU with likely central line placement and arterial line BP monitoring given the clinical context; would recommend initiation of levophed as initial pressor I had a lengthy discussion with her on the likely need for lung transplant given her pulmonary fibrosis and worsening pulmonary status she has been very reluctant to accept the fact that lung transplant my be the only viable option but now states that she understands has only been seen by outpatient pulmonary medicine once in the [facility] system, she would like to transfer her care to [facility] pulmonolgy would obviously defer the timing of transplant along with its urgency to pulmonary medicine Admission and Anticipated Discharge Date Admission Date: July 23, 2022 Subjective Pt seen and examined. Chart reviewed. Telemetry reviewed. States that her breathing has improved from admission but still not back to baseline. LE edema improving as well. Review of Systems Review of Systems: All systems reviewed & are unremarkable except as noted in HPI & below Physical Exam Physical Exam: General: Awake, alert and oriented x 3. No acute distress. On nasal cannula O2 HEENT: Normocephalic, atraumatic. Pupils equal, round and reactive to light and accommodation. Extraocular muscles are intact. Anicteric sclera. Moist mucous membranes. Neck: No JVD. No bruit. Cardiovascular: Regular. Positive S-4. Normal S-1 and S-2. No S-3. 3/6 ho losystolic ejection murmur, 5th intercostal space, mid-clavicular line without radiation. No rubs. Pulmonary: Clear to auscultation bilaterally. No rales, rhonchi, or wheezing. Abdomen: Bowel sounds x 4, soft. No rebound, guarding or tenderness. No organomegaly. Extremities: No clubbing, cyanosis. +2 b/l LE pitting edema. +2 pedal pulses bilaterally. Skin: Warm and dry. Results & Data ([facility]) Vital Signs (Past 12 Hours) Vital Signs Temp Pulse Resp BP Pulse Ox O2 Del Method O2 Flow Rate 07/28/22 11:32 36.6 C 72 19 95/67 L 95 Nasal Cannula 4 07/28/22 10:59 68 20 94 Nasal Cannula 5 07/28/22 07:22 105 H 22 90 Nasal Cannula 5 07/28/22 06:50 36.5 C 63 18 96/68 L 93 Nasal Cannula 5.5 07/28/22 02:45 36.6 C 64 18 112/77 94 Nasal Cannula 5.5
--- NOTE | 2022-07-28 14:57 | Hospitalist Progress Note ---
Date of Service July 28, 2022 Assessment & Plan (1) Hypoxia: Plan: Patient is a 57 yr female who presents with worsening shortness of breath, xjjzd-fr-[id number] respiratory failure. Xuvwt-if-icigdnj respiratory failure with Hypoxia Chronic oxygen dependency--on 3-4 L at baseline Chronic interstitial lung disease--Possible Flare H/O COVID Pulmonary artery hypertension Cor pulmonale Chronic steroid dependence Respiratory failure likely multifactorial: Interstitial lung disease, PAH, Right-sided heart failure Metabolic alkalosis --CT Chest:Cardiomegaly without acute intrathoracic abnormality. Chronic interstitial lung disease with subpleural predominant cysts/honeycombing, subpleural reticulation with groundglass densities and bronchiectasis, right greater than left. The subpleural cystic changes/honeycombing has progressively worsened compared to the 05/06/2021 exam. Mildly improved mediastinal and hilar lymphadenopathy, likely related to the chronic interstitial lung disease. Cardiomegaly with evidence of pulmonary arterial hypertension. Unchanged fusiform dilation of the ascending thoracic aorta, 4.2 cm. --ECHO: EF 60 to 65%. Normal LV chamber size and wall thickness. No segmental left ventricle wall motion abnormality. Flattened septum is consistent with RV pressure/volume overload. D-shaped LV chamber. Grade 1 diastolic dysfunction. Right ventricle is severely dilated. Right ventricular systolic function is severely reduced. Mild aortic regurgitation. Severe tricuspid regurgitation. Severe pulmonary artery hypertension. -- Procalcitonin 0.05 --Blood cultures negative to date --Urine for Legionella Negative --Nasal MRSA Negative --Continue IV Solu-Medrol>> transition to prednisone taper course --Continue nebs, empiric antibiotics --Continue IV Lasix Monitor I's and O's, daily weight, electrolytes Appreciate Pulmonology/Cardiology/Nephrology Input Needs sleep study as outpatient Wean supplemental oxygen as able Continue Diamox Given low BP, and possible need for pressors, transferred to ICU for further care Valsartan dose adjusted Discussed with traffic superintendent on-call Continue IV diuresis Mild troponin elevation Likely demand ischemia secondary to hypoxia Chronic hyponatremia Sodium 129 today Monitor sodium levels Vitamin D deficiency Continue vitamin D supplements Abnormal urinalysis Ruled out UTI Urine culture Negative cefepime discontinued DM II HbA1C 12.3 Continue insulin per protocol Monitor BGs Glycemic pharmacy consulted Hypocalcemia: Likely due to vitamin D deficiency Received IV calcium gluconate Monitor Hypomagnesemia Replete as needed Morbid obesity: BMI 41 Needs counseling Possible sleep apnea Patient refused sleep study as outpatient Depression: Continue citalopram Vitamin B12 deficiency: Continue vitamin B12 supplements. Hypothyroidism: Continue Levothyroxine Hypertension: Continue metoprolol, valsartan Hyperlipidemia: On statin. DVT Px: Lovenox SQ CODE STATUS Full code DISPOSITION: PT/OT prior to discharge Admission and Anticipated Discharge Date Admission Date: July 23, 2022 Subjective Patient is seen and examined at bedside States feeling tired Breathing better Low BP today Denies any chest pain, dizziness, nausea, abdominal Still has significant volume overload Review of Systems Review of Systems: All systems reviewed & are unremarkable except as noted in Subjective Physical Exam Physical Exam: Physical Exam: Vitals signs as noted above General Appearance:Morbidly obese, no apparent distress Head: normocephalic, Atraumatic Eyes: normal inspection, EOMI Neck: supple, Trachea midline Respiratory/Chest: Decreased breath sounds, basal crackles, No accessory muscle use Cardiovascular: S1, S2, No murmur Abdomen/GI:Soft, Non tender, Bowel sounds present Extremities/Musculoskeletal:normal inspection, 2+ B/L LE edema Neurologic/Psych:AAOX3, grossly no focal neurological deficits Skin: normal color, warm Results & Data Results & Data ([facility]) Vital Signs (Past 12 Hours) Vital Signs Temp Pulse Pulse Resp BP BP Pulse Ox 07/28/22 14:01 130/99 07/28/22 14:01 68 16 93 07/28/22 14:00 69 17 91 07/28/22 13:00 71 20 91 07/28/22 13:00 100/70 07/28/22 12:57 73 27 H 86 L 07/28/22 12:57 98/63 L 07/28/22 12:40 72 20 07/28/22 08:00 07/28/22 11:32 36.6 C 72 19 95/67 L 95 07/28/22 10:59 68 20 94 07/28/22 07:22 105 H 22 90 07/28/22 06:50 36.5 C 63 18 96/68 L 93 O2 Del Method O2 Flow Rate 07/28/22 14:01 07/28/22 14:01 07/28/22 14:00 Nasal Cannula 5 07/28/22 13:00 Nasal Cannula 5 07/28/22 13:00 07/28/22 12:57 Nasal Cannula 4 07/28/22 12:57 07/28/22 12:40 07/28/22 08:00 Nasal Cannula 5 07/28/22 11:32 Nasal Cannula 4 07/28/22 10:59 Nasal Cannula 5 07/28/22 07:22 Nasal Cannula 5 07/28/22 06:50 Nasal Cannula 5.5 Laboratory Results Short CBC 07/28/22 Range/Units 07:06 WBC 10.09 (4.8-10.8) K/ul Hgb 13.7 (12.0-16.0) g/dl Hct 42.6 (34.1-44.9) % Plt Count 244 (130-400) K/uL BMP 07/28/22 07:06 Sodium 129 L Potassium 5.0 Chloride 87 L Carbon Dioxide 40 H BUN 22 Creatinine 0.92 Glucose 73 Calcium 8.9
--- NOTE | 2022-07-28 15:04 | Critical Care Consultation ---
Date of Consultation July 28, 2022 Assessment & Plan (1) Interstitial lung disease: ICU Assessment and Plans Reason Critically Ill: 57yo Female with PMH significant for ILD 2/2 COVID with baseline O2 usage at 4L, diastolic HF, DM2 uncontrolled, hypothyroidism, and anxiety was admitted to the hospital for acute on chronic respiratory failure and heart failure exacerbation, ICU was consulted for worsening hypotension. Neuro - [facility] ICU: NEGATIVE Sedation: none Analgesia: PRN tylenol Anxiety -continue citalopram Cardiac - Hypotension -lowest BP noted to be 95/67 -lasix IV adjusted from 40mg BID to 30mg TID -valsartan dose adjusted from 320mg daily to 80mg daily -recheck is 130/99 -if MAP drops below 60, consider pressor support, hold metoprolol valsartan, continue diuresis Diastolic heart failure exacerbation -recent echo EF 60-65%, flattened septum consistent with volume overload, grade 1 diastolic dysfunction, RV severely dilated, RV systolic function severely reduced, severe tricuspid regurge, severe pulm HTN -cardiology consulted continue lasix monitor for hypotension -currently down 8L -standing weights daily HTN -currently on metoprolol succinate 100mg daily -on valsartan dosage reduced from 320mg to 80mg daily to start on 07/29 -currently on lasix 30mg IV TID -hold valsartan, metoprolol for systolic < 100 HLD -continue rosuvastatin Respiratory - Acute on Chronic Respiratory failure 2/2 ILD, HF, pulm HTN -baseline home O2 3-4L, currently satting well on 5L O2 -pulm consulted continue to wean prednosine GI - Heart healthy carb consistent low sodium water restriction 1800ml diet RENAL/LYTES - Metabolic alkalosis with respiratory acidosis -Nephro consulted continue lasix, acetazolamide - No concerns at this time. ENDO - DM2 -A1c 12.3 -continue SSI Hypothyroidism -continue levothyroxine HEME - Stable H&H. ID - No concerns for infection at this point. INTEGUMENTARY - Skin clean dry intact LINES/IV ACCESS - PIVs intact. DVT PROPHYLAXIS - -on lovenox for DVT prophylaxis Thank you for allowing us to be part of this patient's care. Please refer to []'s documentation for any further recommendations. (2) Volume overload: (3) Metabolic alkalosis: (4) Respiratory acidosis: (5) Acute and chronic respiratory failure: (6) Cor pulmonale: (7) Metabolic alkalosis with respiratory acidosis: (8) Leg edema: (9) Pulmonary hypertension: Supervising Physician Co-Signing Physician Notes Dr. Green was resident physician during care of patient. I separately evaluated patient for sandoval portions of the history and the exam. I was present during the critical portion of medical decision making, and I discussed the case with the resident. I generally agree with the findings and plan. Clinical condition improved, continue with diuresis. History of Present Illness Reason for Consultation: Hypotension Requesting Physician: Dr. Kumar Attending Physician: Ambrose Abbott MD History of Present Illness 57yo Female with PMH significant for ILD 2/2 COVID with baseline O2 usage at 4L, diastolic HF, DM2 uncontrolled, hypothyroidism, and anxiety was admitted to the hospital for acute on chronic respiratory failure and heart failure exacerbation, ICU was consulted for worsening hypotension. Patient states she had first noted swelling in her legs in December, was started on lasix and swelling resolved. Leg swelling reoccured in may, her lasix dosage was increased however she was still swollen to the point where she could not walk, had leg pain and worsened breathing status on exertion, could not take deep breath. She saw her PCP who removed her amlodipine which helped some of the swelling. In the last 2 weeks her swelling and SOB have been the worst, family brought her to ED. Patient states her diagnosis of heart failure is new, she previously did not have a nutritional yeast supervisor. She had a poor appetite in the last month ate very little, this did not interfere with taking her medication daily. Patient states she developed new anxiety 2/2 immobility from her leg swelling in the past few months, a very recent PCP visit had started her on citalopram which she actually started taking in the hospital. Patient states she does not have an inhaler at home as it does not help. At this time patient states her leg swelling and breathing status have breatly improved and she looks forward to further diuresis. She states her leg swelling has been reduced to just above her knees, no longer has swollen abd. She denies headache dizziness SOB nausea vomitting CP abd pain at this time. Upon admission to the ICU her blood pressure was 100/70, next recheck without intervention was 130/99. Primary team has already reduced her morning dose of valsartan to be implemented tomorrow. Allergies Allergy/AdvReac Type Severity Reaction Status Date / Time No Known Allergies Allergy Verified 07/23/22 21:15 Home Medications Medication Instructions Recorded Confirmed Type glipizide 10 mg tablet, extended 10 mg PO QDD 05/06/21 07/23/22 History release 24 hr levothyroxine 88 mcg tablet 88 mcg PO DAILYBB 05/06/21 07/23/22 History metformin 500 mg tablet,extended 2,000 mg PO QDD 05/06/21 07/23/22 History release 24 hr metoprolol succinate 100 mg 100 mg PO QAM 05/06/21 07/23/22 History tablet,extended release 24 hr rosuvastatin 5 mg tablet 5 mg PO 2XWK 05/06/21 07/23/22 History Oxygen Home #1 ea 05/08/21 Rx cefdinir 300 mg capsule 300 mg PO BID #10 caps 05/08/21 07/23/22 Rx L.acidoph-L.rhamn-B.bifidum-B.long 1 tab PO DAILY 07/23/22 07/23/22 History 12.9 mg (2 billion cell) tabletDR (Probiotic Acidophilus Biobeads) albuterol sulfate 90 mcg/actuation 2 puff inhalation Q6H PRN Wheezing 07/23/22 07/23/22 History aerosol inhaler apple cider vinegar 500 mg tablet 500 mg PO DAILY 07/23/22 07/23/22 History benzonatate 100 mg capsule 100 mg PO TID PRN Cough 07/23/22 07/23/22 History citalopram 10 mg tablet 10 mg PO QAM 07/23/22 07/23/22 History clotrimazole 1 % topical cream 1 applic topical BID 07/23/22 07/23/22 History codeine 10 mg-guaifenesin 100 mg/5 10 ml PO Q6H PRN Cough 07/23/22 07/23/22 History mL oral liquid (Guaifenesin AC) cyanocobalamin (vitamin B-12) 1,000 mcg PO DAILY 07/23/22 07/23/22 History 1,000 mcg tablet (Vitamin B-12) empagliflozin 10 mg tablet 10 mg PO QAM 07/23/22 History (Jardiance) furosemide 20 mg tablet (Lasix) 20 mg PO DAILY 07/23/22 07/23/22 History milk thistle 150 mg capsule 150 mg PO DAILY 07/23/22 07/23/22 History omega 6-ozt-kxb-fish oil 1,000 mg 1 cap PO DAILY 07/23/22 07/23/22 History (120 mg-180 mg) capsule (Fish Oil) prednisone 10 mg tablet 15 mg PO DAILY 07/23/22 07/23/22 History valsartan 320 mg tablet 320 mg PO DAILY 07/23/22 07/23/22 History Patient History Medical History (Updated 07/28/22 @ 11:54 by Juan Alberto Rae DO) Chronic respiratory failure with hypoxia 3L at baseline, 4L w/ exertion as of 05/2022 Cor pulmonale COVID-19 long hauler Hyponatremia Interstitial lung disease likeliest post Covid fibrosis; follows w/ Dr Cerna [facility] Obesity (BMI 30-39.9) Pneumonia due to COVID-19 virus Pulmonary hypertension Type 2 diabetes mellitus Family History Other Family history non-contributory Social History Smoking Status: Never smoker Hx Alcohol Use: No Hx Substance Use: No Preferred Language: Kittitian Communication Ability: Effective Bull Float Finisher Required: No Beliefs That Will Affect Care: None marital status: / Current Living Situation: Family Current Living Situation Comment: son How many Children do You have: 1 Feels Safe at Home: Yes Assistive Devices: Oxygen - Continuous Review of Systems Review of Systems: All systems reviewed & are unremarkable except as noted in HPI & below Physical Exam Constitutional: well developed, well nourished, + morbidly obese, cooperative, comfortable and + edematous Eyes: PERRL, conjunctivae normal, anicteric sclerae ENMT: external ear and nose normal, oropharynx normal Neck: trachea midline, no thyromegaly Respiratory: normal respiratory effort, lungs clear to auscultation Cardiovascular: Rate/Rhythm: regular rate and regular rhythm Extremities: + edema (+2 pitting to lower thigh) Gastrointestinal (Abdomen): Inspection/Auscultation: abdomen normal to inspection Percussion/Palpation: abdomen soft; abdomen nontender Skin: no rashes, warm and dry Psychiatric: A+Ox3, euthymic affect Results & Data Results & Data ([facility]) Vital Signs (Past 12 Hours) Vital Signs Temp Pulse Pulse Resp BP BP Pulse Ox 07/28/22 14:01 130/99 07/28/22 14:01 68 16 93 07/28/22 14:00 69 17 91 07/28/22 13:00 71 20 91 07/28/22 13:00 100/70 07/28/22 12:57 73 27 H 86 L 07/28/22 12:57 98/63 L 07/28/22 12:40 72 20 07/28/22 08:00 07/28/22 11:32 36.6 C 72 19 95/67 L 95 07/28/22 10:59 68 20 94 07/28/22 07:22 105 H 22 90 07/28/22 06:50 36.5 C 63 18 96/68 L 93 07/28/22 02:45 36.6 C 64 18 112/77 94 O2 Del Method O2 Flow Rate 07/28/22 14:01 07/28/22 14:01 07/28/22 14:00 Nasal Cannula 5 07/28/22 13:00 Nasal Cannula 5 07/28/22 13:00 07/28/22 12:57 Nasal Cannula 4 07/28/22 12:57 07/28/22 12:40 07/28/22 08:00 Nasal Cannula 5 07/28/22 11:32 Nasal Cannula 4 07/28/22 10:59 Nasal Cannula 5 07/28/22 07:22 Nasal Cannula 5 07/28/22 06:50 Nasal Cannula 5.5 07/28/22 02:45 Nasal Cannula 5.5 Resident Activity Tracking Resident Involvement: Resident Care Provided Care Provided: Adult Hospital Medicine
[2022-07-28] MEDS: acetaZOLAMIDE 250 MG in DEXTROSE 5% 100 ML IV SCH (20:06)
[2022-07-29 05:11] LABS: Basophils # (auto) 0.03 K/uL (0-0.2); Basophils % (auto) 0.3 %; Eosinophils # (auto) 0.11 K/uL (0-0.50); Hematocrit (blood only) 45.5 % (34.1-44.9); Hemoglobin 15.1 g/dl (12.0-16.0); Immature Granulocytes # (auto) 0.11 K/uL (0.00-0.02); Lymphocytes # (auto) 3.37 K/uL (1.2-3.4); Lymphocytes % (auto) 29.4 %; Mean Corpuscular Hemoglobin 28.1 pg (25.0-34.0); Mean Corpuscular Hgb Conc 33.2 g/dL (32.0-36.0); Mean Corpuscular Volume 84.6 fL (80.0-100.0); Mean Platelet Volume 10.7 fL (9.4-12.3); Monocytes # (auto) 0.85 K/uL (0.24-0.82); Monocytes % (auto) 7.4 %; Neutrophils # (auto) 6.98 K/uL (1.4-6.5); Neutrophils % (auto) 60.9 %; Nucleated RBC # (auto) 0.02 K/uL (0-0); Nucleated RBC % (auto) 0.2 %; Platelet Count 258 K/uL (130-400); RDW Coefficient of Variation 17.1 % (11.5-14.5); RDW Standard Deviation 52.2 fL (36.4-46.3); Red Blood Count 5.38 M/uL (3.93-5.22); White Blood Count 11.45 K/ul (4.8-10.8)
[2022-07-29 05:38] LABS: Calcium 9.4 mg/dl (8.5-10.1); Creatinine Clr Calc Pharmacy 86.2 ml/min; Est GFR (African American) 90.7 ml/min; Est GFR (Non-African American) 78.2 ml/min; Magnesium 1.9 mg/dl (1.7-2.4); Phosphorus 4.5 mg/dl (2.5-4.9); Potassium 4.2 mmol/L (3.5-5.1)
[2022-07-29] MEDS: FUROSEMIDE 40 MG/4 ML VIAL IV SCH ×3 (06:32→16:51)
[2022-07-29] MEDS: LEVOTHYROXINE SODIUM 88 MCG TABLET PO SCH (06:32)
[2022-07-29] MEDS: INSULIN ASPART PER UNIT SC SCH ×4 (07:08→20:49)
[2022-07-29] MEDS: ENOXAPARIN INJ 40 MG/0.4 ML SYR SQ SCH ×2 (07:28→20:49)
[2022-07-29] MEDS: CITALOPRAM 20 MG TAB PO SCH (07:29)
[2022-07-29] MEDS: MAGNESIUM OXIDE 400 MG TAB PO SCH ×2 (07:29→20:52)
[2022-07-29] MEDS: POTASSIUM CHLORIDE CRTAB 20 MEQ TABCR PO SCH ×2 (07:29→20:52)
[2022-07-29] MEDS: predniSONE 20 MG TAB PO SCH (07:30)
[2022-07-29] MEDS: CYANOCOBALAMIN (B-12) 500 MCG TABLET PO SCH (07:30)
[2022-07-29] MEDS: ADVANCED PROBIOTIC 1250 MG CAPSULE PO SCH (07:30)
[2022-07-29] MEDS: CALCIUM 600MG + VIT D 400 IU TAB PO SCH (07:30)
[2022-07-29] MEDS: METOPROLOL SUCC 50MG EXT REL TAB PO SCH (07:31)
[2022-07-29] MEDS: CLOTRIMAZOLE 1% CR 15 GM TUBE TOP SCH ×2 (07:33→20:48)
[2022-07-29] MEDS: NEOMYCIN/POLYMYX/BACITR OINT 15 GM TUBE EXT SCH ×2 (07:33→20:52)
[2022-07-29] MEDS: ACETAZOLAMIDE IV SCH (07:36)
[2022-07-29] MEDS: DEXTROSE 5% IV SCH (07:36)
[2022-07-29] MEDS: ALBUT/IPRATROP 3MG/0.5MG NEB 3 ML VIAL NEB SCH ×4 (07:50→20:51)
[2022-07-29] MEDS ORDERED: FUROSEMIDE 40 MG/4 ML VIAL IV STA (07:51)
[2022-07-29] MEDS: NovoLIN-N (NPH) PER UNIT CHARGE SQ SCH (07:54)
--- NOTE | 2022-07-29 08:08 | Critical Care Progress Note ---
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 Neuro - [facility] ICU: NEGATIVE Sedation: none Analgesia: PRN tylenol Anxiety -continue citalopram Cardiac - Hypotension -lowest BP noted to be 95/67 -lasix IV adjusted to 60mg IV TID -valsartan discontinued -recheck is 124/87 -no indication for pressor support at this time. Diastolic heart failure exacerbation -recent echo EF 60-65%, flattened septum consistent with volume overload, grade 1 diastolic dysfunction, RV severely dilated, RV systolic function severely reduced, severe tricuspid regurge, severe pulm HTN -cardiology consulted continue lasix monitor for hypotension -currently down 10L -standing weights daily HTN -currently on metoprolol succinate 100mg daily -valsartan discontinued -currently on lasix 60mg IV TID -hold metoprolol for systolic < 100 HLD -continue rosuvastatin Respiratory - Acute on Chronic Respiratory failure 2/2 ILD, HF, pulm HTN -baseline home O2 3-4L, currently satting well on 5L O2 -pulm consulted continue to wean prednisone GI - Heart healthy carb consistent low sodium water restriction 1800ml diet RENAL/LYTES - Metabolic alkalosis with respiratory acidosis -Nephro consulted continue acetazolamide increased lasix to 60mg IV TID added milrenone - No concerns at this time. ENDO - DM2 -A1c 12.3 -continue SSI Hypothyroidism -continue levothyroxine HEME - Stable H&H. ID - No concerns for infection at this point. INTEGUMENTARY - Skin clean dry intact LINES/IV ACCESS - PIVs intact. DVT PROPHYLAXIS - -on lovenox for DVT prophylaxis Thank you for allowing us to be part of this patient's care. Please refer to Dr. Kumar's documentation for any further recommendations. Patient stable for downgrade from ICU at this time (2) Volume overload: (3) Metabolic alkalosis: (4) Respiratory acidosis: (5) Acute and chronic respiratory failure: (6) Cor pulmonale: (7) Metabolic alkalosis with respiratory acidosis: (8) Leg edema: (9) Pulmonary hypertension: Admission and Anticipated Discharge Date Admission Date: July 23, 2022 Supervising Physician Co-Signing Physician Notes Dr. Green was resident physician during care of patient. I separately evaluated patient for sandoval portions of the history and the exam. I was present during the critical portion of medical decision making, and I discussed the case with the resident. I generally agree with the findings and plan. Patient with adequate blood pressures. No role for inotropic support at this time, continue with diuresis. Defer to pulmonology regarding phosphodiesterase inhibitors. Stable to downgrade from ICU Subjective Patient seen at bedside calm comfortable cooperative tolerated breakfast well no acute concerns today. States her leg swelling continues to go down. At this time she denies any headache dizziness SOB nausea vomiting chest pain. Patient understands we are continuing to diurese her further. Review of Systems Review of Systems: All systems reviewed & are unremarkable except as noted in HPI & below Physical Exam Constitutional: well developed, well nourished, + morbidly obese, cooperative, comfortable and + edematous Eyes: PERRL, conjunctivae normal, anicteric sclerae ENMT: external ear and nose normal, oropharynx normal Neck: trachea midline, no thyromegaly Respiratory: normal respiratory effort, lungs clear to auscultation Cardiovascular: Rate/Rhythm: regular rate and regular rhythm Extremities: + edema (+2 pitting to lower thigh) Gastrointestinal (Abdomen): Inspection/Auscultation: abdomen normal to inspection Percussion/Palpation: abdomen soft; abdomen nontender Skin: no rashes, warm and dry Psychiatric: A+Ox3, euthymic affect Results & Data Results & Data ([facility]) Vital Signs (Past 12 Hours) Vital Signs Temp Pulse Pulse Resp BP Pulse Ox Pulse Ox 07/29/22 07:50 64 16 97 07/29/22 07:00 60 18 124/87 97 07/29/22 06:00 56 L 15 95 07/29/22 05:00 56 L 15 94 07/29/22 04:01 125/81 07/29/22 04:01 57 L 19 93 07/29/22 04:00 56 L 14 91 07/29/22 04:28 36.5 C 07/29/22 03:01 56 L 15 95 07/29/22 03:01 97/67 L 07/29/22 03:00 54 L 14 94 07/29/22 02:17 125/88 07/29/22 02:17 58 L 18 96 07/29/22 02:00 57 L 16 95 07/29/22 01:00 59 L 18 94 07/29/22 00:30 60 07/29/22 00:00 60 26 H 91 07/29/22 00:00 117/80 07/28/22 23:00 59 L 16 94 07/28/22 23:00 98/70 L 07/28/22 22:00 60 17 94 07/28/22 22:00 113/72 07/28/22 23:00 93 07/28/22 21:00 63 24 97 07/28/22 21:00 112/81 07/28/22 21:46 07/28/22 21:00 77 20 92 O2 Del Method O2 Del Method O2 Flow Rate O2 Flow Rate 07/29/22 07:50 Nasal Cannula 6 07/29/22 07:00 Nasal Cannula 6 07/29/22 06:00 07/29/22 05:00 07/29/22 04:01 07/29/22 04:01 Nasal Cannula 6 07/29/22 04:00 07/29/22 04:28 07/29/22 03:01 Nasal Cannula 5 07/29/22 03:01 07/29/22 03:00 07/29/22 02:17 07/29/22 02:17 07/29/22 02:00 07/29/22 01:00 07/29/22 00:30 07/29/22 00:00 Nasal Cannula 5 07/29/22 00:00 07/28/22 23:00 07/28/22 23:00 07/28/22 22:00 07/28/22 22:00 07/28/22 23:00 Nasal Cannula 5 07/28/22 21:00 07/28/22 21:00 07/28/22 21:46 Nasal Cannula 5 07/28/22 21:00 Nasal Cannula 5 Resident Activity Tracking Resident Involvement: Resident Care Provided Care Provided: Adult Hospital Medicine
[2022-07-29] MEDS ORDERED: VALSARTAN 80 MG TAB PO SCH (09:00)
--- NOTE | 2022-07-29 09:42 | Billing Data ---
Date of Service July 29, 2022 Coding Level of Care Code 67383 Subseq Hosp Care Lvl 3
--- NOTE | 2022-07-29 09:42 | Billing Data ---
Date of Service July 28, 2022 Coding Level of Care Code 16153 Inpt Consult Level 4
--- NOTE | 2022-07-29 10:23 | Cardiology Progress Note ---
Date of Service July 29, 2022 Assessment & Plan (1) Pulmonary hypertension: (2) Idiopathic interstitial pneumonia: (3) Hypoxia: (4) Cor pulmonale: (5) Leg edema: (6) Respiratory acidosis: (7) Metabolic alkalosis: (8) Hypotension: (9) Volume overload: (10) Chronic respiratory failure with hypoxia: Plan The patient's echocardiogram revealed signs of severe pulmonary hypertension and right-sided heart failure which is consistent with her progressive lung disease From a cardiac standpoint would recommend continued diuretic therapy and her twice daily Lasix should be continued at this time now almost 10 liters negative Continues to diurese well, now down almost 11 L still examines as volume overloaded appreciate our nephrology colleagues aid in managing diuretics cont to follow and replete lytes as necesssary BP meds adjusted, has remained stable since transfer to ICU BP a little soft this AM at 90 mmHg, asymptomatic cont to follow I had a lengthy discussion with her on the likely need for lung transplant given her pulmonary fibrosis and worsening pulmonary status she has been very reluctant to accept the fact that lung transplant my be the only viable option but now states that she understands has only been seen by outpatient pulmonary medicine once in the [facility], she would like to transfer her care to [facility] pulmonolgy would obviously defer the timing of transplant along with its urgency to pulmonary medicine Admission and Anticipated Discharge Date Admission Date: July 23, 2022 Subjective Pt seen and examined. Telemetry reviewed. Chart reviewed. Discussed with nephrology. Review of Systems Review of Systems: All systems reviewed & are unremarkable except as noted in HPI & below Physical Exam Physical Exam: General: Awake, alert and oriented x 3. No acute distress. On nasal cannula O2 HEENT: Normocephalic, atraumatic. Pupils equal, round and reactive to light and accommodation. Extraocular muscles are intact. Anicteric sclera. Moist mucous membranes. Neck: No JVD. No bruit. Cardiovascular: Regular. Positive S-4. Normal S-1 and S-2. No S-3. 3/6 holosystolic ejection murmur, 5th intercostal space, mid-clavicular line without radiation. No rubs. Pulmonary: Clear to auscultation bilaterally. No rales, rhonchi, or wheezing. Abdomen: Bowel sounds x 4, soft. No rebound, guarding or tenderness. No organomegaly. Extremities: No clubbing, cyanosis. +2 b/l LE pitting edema. +2 pedal pulses bilaterally. Skin: Warm and dry. Results & Data ([facility]) Vital Signs (Past 12 Hours) Vital Signs Temp Pulse Pulse Resp BP Pulse Ox Pulse Ox 07/29/22 07:50 64 16 97 07/29/22 07:00 60 18 124/87 97 07/29/22 06:00 56 L 15 95 07/29/22 05:00 56 L 15 94 07/29/22 04:01 125/81 07/29/22 04:01 57 L 19 93 07/29/22 04:00 56 L 14 91 07/29/22 04:28 36.5 C 07/29/22 03:01 56 L 15 95 07/29/22 03:01 97/67 L 07/29/22 03:00 54 L 14 94 07/29/22 02:17 125/88 07/29/22 02:17 58 L 18 96 07/29/22 02:00 57 L 16 95 07/29/22 01:00 59 L 18 94 07/29/22 00:30 60 07/29/22 00:00 60 26 H 91 07/29/22 00:00 117/80 07/28/22 23:00 59 L 16 94 07/28/22 23:00 98/70 L 07/28/22 23:00 93 O2 Del Method O2 Del Method O2 Flow Rate O2 Flow Rate 07/29/22 07:50 Nasal Cannula 6 07/29/22 07:00 Nasal Cannula 6 07/29/22 06:00 07/29/22 05:00 07/29/22 04:01 07/29/22 04:01 Nasal Cannula 6 07/29/22 04:00 07/29/22 04:28 07/29/22 03:01 Nasal Cannula 5 07/29/22 03:01 07/29/22 03:00 07/29/22 02:17 07/29/22 02:17 07/29/22 02:00 07/29/22 01:00 07/29/22 00:30 07/29/22 00:00 Nasal Cannula 5 07/29/22 00:00 07/28/22 23:00 07/28/22 23:00 07/28/22 23:00 Nasal Cannula 5
--- NOTE | 2022-07-29 11:22 | Pharmacy Report ---
Pharmacy Glycemic Short Note 2 - Date of Service July 29, 2022 - Glycemic Short BSG Results (Last 24 hours): 07/28/22 07/28/22 07/28/22 11:07 16: 20:14 Glucose POC Glucose 113 H 155 H 145 H 07/29/22 07/29/22 04:23 11:03 Glucose 87 POC Glucose 251 H OUTPATIENT ANTIDIABETIC REGIMEN: * Metformin 2 gm PO daily * Glipizide 10 mg PO daily * HbA1c: 12.3% (07/24/22), could be affected by outpatient steroid use ASSESSMENT: 07/29: * Ale never require pressor/inotropic support upon transfer to the ICU. Stressors are stable at this point and will be downgraded from ICU. * Remains on Prednisone 20 mg PO daily. Continue with NPH to cover for steroid- induced hyperglycemia. Of note, steroids are set to discontinue after tomorrow's dose (07/30). Unsure of further taper. * RN did not check a POC BSG this AM and utilized the serum BSG of 87 mg/dL from ~0500 for unknown reasons. Do not believe that this BSG was truly treasury representative of what the patient truly was. No AM Novolog was given and not documented whether the patient ate breakfast or not. * Lunchtime BSG was 251 mg/dL. Do not feel comfortable making any changes to insulin regimen at today given uncertainty of AM and lunchtime BSGs. 07/28: * Stressors stable * AM fasting BSG still below goal range but not hypoglycemic and is trending up from yesterday - no change to NPH * Post-prandial BSG's elevated. Will tighten Novolog parameters AC but leave looser HS 07/27: * This morning, the patient experienced another episode of hypoglycemia ( BSG 67 mg/dL). This may be due to overcorrection of previous nighttime BSG (267 mg/dL). * HS correction factor will be loosened to prevent opportunity for overcorrection of nightime BSG and subsequent hypoglycemic episodes. * Mealtime carb coverage will be tightened in observance of elevated postprandial BSG's * Will continue NPH 15 units daily alongside of prednisone 20mg daily to match pharmacokinetic peak. Will continue to avoid Lantus use due to low fasting BSG's. PLAN FOR INPATIENT GLYCEMIC CONTROL: * Hold outpatient oral diabetes medications * Basal insulin * NPH 15 units (~0.15 units/kg) SC daily, while on prednisone 20mg daily * Bolus insulin * NovoLog per scale ACHS or Q6hrs while NPO * Goal Range: Low 110 mg/dL - High 140 mg/dL * Correction Factor: 15 mg/dL/unit with breakfast, lunch and dinner; 30 mg/dL/unit at HS * Carb ratio: 4 g CHO/unit with breakfast, lunch and dinner; 5 g CHO/unit at HS
[2022-07-29] MEDS: metOLazone 2.5 MG TABLET PO SCH (11:52)
--- NOTE | 2022-07-29 15:03 | Nephrology Progress Note ---
Date of Service July 29, 2022 Assessment & Plan (1) Acute and chronic respiratory failure: Plan: multifactorial from post covid fibrosis and pulmonary HTN, acute cor pulmonale. She uses 3L at baseline and 4L w/ exertion. Currently needing 4-6 L at rest. In January 2022 her PH was moderate and now is severe (though limitations on TTE w/ volume overload). >further intensified diuresis>> lasix 60 mg IV dosed at 6, noon, 1800 starting tomorrow; continue intensified acetazolamide to 500 mg IV bid; added 2.5 mg daily metolazone -diuretics limited potentially by hypotension >> lowered ARB dose to 80 mg daily starting tomorrow >>again to adequately diurese, may need to consider milrinone or dobutamine;percardiology -continue to work w/ pt to get her to use bipap/cpap overnight in house -standing weight only; dietary measures as above -may need to consider tertiary care depending on course (2) Metabolic alkalosis with respiratory acidosis: Plan: continue lasix/ acetazolamide/ metolazone as above > > chronic respiratory acidosis w/ contraction alkalosis >> OK for now -no po diuretics yet -daily bmp >acid base issues for now are stabilized > chronic respiratory acidosis now with contraction alkalosis; at some risk for acute renal failure w/ diuresis Admission and Anticipated Discharge Date Admission Date: July 23, 2022 Subjective seen on rounds this am at 0930; feeling good, denies sob or worsening edema; feels things are improving. 1L negative so far; no bipap/cpap last night but states will use Review of Systems Review of Systems: All systems reviewed & are unremarkable except as noted in Subjective Physical Exam Constitutional: well developed, well nourished and cooperative; no acute distr ess Eyes: EOM intact bilaterally ENMT: Ears: no external ear abnormality Nose: no external nose abnormality Mouth: + dry oral mucous membranes Neck: no nuchal rigidity Respiratory: normal respiratory effort and able to speak in complete sentences (but dyspneic) Auscultation: + diminished lung sounds and + crackles (3/[address] up posterior rowe) Cardiovascular: Rate/Rhythm: regular rate and regular rhythm Heart Sounds: + murmur Extremities: + edema (3+ BL to knees) Gastrointestinal (Abdomen): Inspection/Auscultation: normal bowel sounds Percussion/Palpation: abdomen soft; abdomen nontender Musculoskeletal: Extremities: strength 5/5 throughout Skin: no rashes, warm and dry Neurologic: delgado, fluent speech, no tremor Psychiatric: Orientation: alert and oriented x 3 Speech: normal rate/rhythm/volume of speech Results & Data ([facility]) Vital Signs (Past 12 Hours) Vital Signs Temp Pulse Pulse Resp BP Pulse Ox O2 Del Method 07/29/22 11:39 67 16 92 Nasal Cannula 07/29/22 11:28 36.7 C 07/29/22 11:04 97/67 L 07/29/22 11:04 68 24 91 Nasal Cannula 07/29/22 10:00 66 20 07/29/22 08:44 90/66 L 07/29/22 08:44 66 24 93 07/29/22 08:05 68 26 H 92 07/29/22 07:25 117/81 07/29/22 08:00 36.6 C 07/29/22 08:00 07/29/22 08:00 Nasal Cannula 07/29/22 07:50 64 16 97 Nasal Cannula 07/29/22 07:00 60 18 124/87 97 Nasal Cannula 07/29/22 06:00 56 L 15 95 07/29/22 05:00 56 L 15 94 07/29/22 04:01 125/81 07/29/22 04:01 57 L 19 93 Nasal Cannula 07/29/22 04:00 56 L 14 91 07/29/22 04:28 36.5 C 07/29/22 03:01 56 L 15 95 Nasal Cannula 07/29/22 03:01 97/67 L O2 Del Method O2 Flow Rate 07/29/22 11:39 4 07/29/22 11:28 07/29/22 11:04 07/29/22 11:04 4 07/29/22 10:00 07/29/22 08:44 07/29/22 08:44 07/29/22 08:05 07/29/22 07:25 07/29/22 08:00 07/29/22 08:00 Nasal Cannula 07/29/22 08:00 4 07/29/22 07:50 6 07/29/22 07:00 6 07/29/22 06:00 07/29/22 05:00 07/29/22 04:01 07/29/22 04:01 6 07/29/22 04:00 07/29/22 04:28 07/29/22 03:01 5 07/29/22 03:01 Laboratory Results 07/29/22 04:23 07/29/22 04:23
--- NOTE | 2022-07-29 15:15 | Hospitalist Progress Note ---
Date of Service July 29, 2022 Assessment & Plan (1) Hypoxia: Plan: Patient is a 57 yr female who presents with worsening shortness of breath, [id number] respiratory failure. [id number] respiratory failure with Hypoxia Chronic oxygen dependency--on 3-4 L at baseline Chronic interstitial lung disease--Possible Flare H/O COVID Pulmonary artery hypertension Cor pulmonale Chronic steroid dependence Respiratory failure likely multifactorial: Interstitial lung disease, PAH, Right-sided heart failure Metabolic alkalosis --CT Chest:Cardiomegaly without acute intrathoracic abnormality. Chronic interstitial lung disease with subpleural predominant cysts/honeycombing, subpleural reticulation with groundglass densities and bronchiectasis, right greater than left. The subpleural cystic changes/honeycombing has progressively worsened compared to the 05/06/2021 exam. Mildly improved mediastinal and hilar lymphadenopathy, likely related to the chronic interstitial lung disease. Cardiomegaly with evidence of pulmonary arterial hypertension. Unchanged fusiform dilation of the ascending thoracic aorta, 4.2 cm. --ECHO: EF 60 to 65%. Normal LV chamber size and wall thickness. No segmental left ventricle wall motion abnormality. Flattened septum is consistent with RV pressure/volume overload. D-shaped LV chamber. Grade 1 diastolic dysfunction. Right ventricle is severely dilated. Right ventricular systolic function is severely reduced. Mild aortic regurgitation. Severe tricuspid regurgitation. Severe pulmonary artery hypertension. -- Procalcitonin 0.05 --Blood cultures negative --Urine for Legionella Negative --Nasal MRSA Negative --Continue IV Solu-Medrol>> transition to prednisone taper course --Continue nebs, empiric antibiotics --Continue IV Lasix Monitor I's and O's, daily weight, electrolytes Appreciate Pulmonology/Cardiology/Nephrology/Critical Care Input Needs sleep study as outpatient Wean supplemental oxygen as able Continue Diamox Did not require pressors while in ICU Valsartan dose adjusted Metolazone added Leg swelling Improving Saturating well on 4 L supplemental oxygen Renal function stable Mild troponin elevation Likely demand ischemia secondary to hypoxia Chronic hyponatremia Sodium 129 today Monitor sodium levels Vitamin D deficiency Continue vitamin D supplements Abnormal urinalysis Ruled out UTI Urine culture Negative cefepime discontinued DM II HbA1C 12.3 Continue insulin per protocol Monitor BGs Glycemic pharmacy consulted Hypocalcemia: Likely due to vitamin D deficiency Received IV calcium gluconate Monitor Hypomagnesemia Replete as needed Morbid obesity: BMI 41 Needs counseling Possible sleep apnea Patient refused sleep study as outpatient Depression: Continue citalopram Vitamin B12 deficiency: Continue vitamin B12 supplements. Hypothyroidism: Continue Levothyroxine Hypertension: Continue metoprolol, valsartan Hyperlipidemia: On statin. DVT Px: Lovenox SQ CODE STATUS Full code DISPOSITION: PT/OT prior to discharge Admission and Anticipated Discharge Date Admission Date: July 23, 2022 Subjective Patient is seen and examined at bedside Leg swelling slowly improving Dyspnea about the same as yesterday Blood pressure relatively well, asymptomatic Denies any chest pain, dizziness, nausea, abdominal Review of Systems Review of Systems: All systems reviewed & are unremarkable except as noted in Subjective Physical Exam Physical Exam: Physical Exam: Vitals signs as noted above General Appearance:Morbidly obese, no apparent distress Head: normocephalic, Atraumatic Eyes: normal inspection, EOMI Neck: supple, Trachea midline Respiratory/Chest: Decreased breath sounds, basal crackles, No accessory muscle use Cardiovascular: S1, S2, No murmur Abdomen/GI:Soft, Non tender, Bowel sounds present Extremities/Musculoskeletal:normal inspection, 2+ B/L LE edema Neurologic/Psych:AAOX3, grossly no focal neurological deficits Skin: normal color, warm Results & Data Results & Data ([facility]) Vital Signs (Past 12 Hours) Vital Signs Temp Pulse Pulse Resp BP Pulse Ox O2 Del Method 07/29/22 15:04 72 18 95 Nasal Cannula 07/29/22 11:39 67 16 92 Nasal Cannula 07/29/22 11:28 36.7 C 07/29/22 11:04 97/67 L 07/29/22 11:04 68 24 91 Nasal Cannula 07/29/22 10:00 66 20 07/29/22 08:44 90/66 L 07/29/22 08:44 66 24 93 07/29/22 08:05 68 26 H 92 07/29/22 07:25 117/81 07/29/22 08:00 36.6 C 07/29/22 08:00 07/29/22 08:00 Nasal Cannula 07/29/22 07:50 64 16 97 Nasal Cannula 07/29/22 07:00 60 18 124/87 97 Nasal Cannula 07/29/22 06:00 56 L 15 95 07/29/22 05:00 56 L 15 94 07/29/22 04:01 125/81 07/29/22 04:01 57 L 19 93 Nasal Cannula 07/29/22 04:00 56 L 14 91 07/29/22 04:28 36.5 C O2 Del Method O2 Flow Rate 07/29/22 15:04 4 07/29/22 11:39 4 07/29/22 11:28 07/29/22 11:04 07/29/22 11:04 4 07/29/22 10:00 07/29/22 08:44 07/29/22 08:44 07/29/22 08:05 07/29/22 07:25 07/29/22 08:00 07/29/22 08:00 Nasal Cannula 07/29/22 08:00 4 07/29/22 07:50 6 07/29/22 07:00 6 07/29/22 06:00 07/29/22 05:00 07/29/22 04:01 07/29/22 04:01 6 07/29/22 04:00 07/29/22 04:28 Laboratory Results Short CBC 07/29/22 Range/Units 04:23 WBC 11.45 H (4.8-10.8) K/ul Hgb 15.1 (12.0-16.0) g/dl Hct 45.5 H (34.1-44.9) % Plt Count 258 (130-400) K/uL BMP 07/29/22 04:23 Sodium 129 L Potassium 4.2 Chloride 87 L Carbon Dioxide 38 H BUN 21 Creatinine 0.84 Glucose 87 Calcium 9.4
--- NOTE | 2022-07-29 15:35 | Pulmonology Progress Note ---
Date of Service July 29, 2022 Assessment & Plan (1) Pulmonary hypertension: (2) Hypoxia: (3) Interstitial lung disease: (4) Acute and chronic respiratory failure: Plan Impression: 57-year-old female with ILD secondary to COVID-19 pneumonia requiring escalating home O2 and ongoing medical management. Found to have severe pulmonary hypertension and hypervolemic status. Recommendations: 1. Post COVID fibrotic lung disease. No role for additional immunosuppression. Tapering steroids. We will decrease down to 10 mg a day with plans to taper off over the next 4 to 6 weeks. The patient will require outpatient pulmonary function tests and consideration for pulmonary rehab. Her body habitus would likely exclude her from lung transplant evaluation in the presence of significant pulmonary hypertension would likely exclude her as well unless they were to consider a concomitant heart lung transplant which appears unlikely. No indication for acute transplant evaluation currently as the patient has not been optimally medically managed. 2. Pulmonary hypertension: Suspect WHO class II, and 3, [place] [employer] class III-IV. Optimization of volume status with continued diuresis. If the patient's blood pressure is soft, would recommend decreasing the metoprolol rather than initiating vasopressors to make room for additional diuresis. Would continue to push diuretics until the patient's serum creatinine increases. Per nephrology and cardiology. No role for initiation of pulmonary vasodilators at this time. Once the patient were established at a euvolemic state, could consider repeating echocardiogram and potentially consideration for right heart catheterization at that point time. This would likely need to be done at a pulmonary hypertension center of excellence. May require outpatient V/Q scan as well. 3. Hypoxemic hypercarbic respiratory failure: Continue supplemental oxygen titrated to keep oxygen saturations at or about 90% given potential pulmonary hypoxemic vasoconstriction. The patient is slightly hypercarbic and may have a concomitant component of obesity hypoventilation syndrome/sleep disordered breathing. She had refused CPAP in the past. Repeat outpatient polysomnography when the patient is clinically stable should be conducted. 4. Obesity: weight loss recommended. At this point in time, agree with focusing on correcting volume status. The remainder of her evaluation can be conducted as an outpatient with Dr. Almanzar. Admission and Anticipated Discharge Date Admission Date: July 23, 2022 Subjective Patient seen and examined. EMR reviewed. The patient was initially transferred to the intensive care unit due to potential need for inotropic support to facilitate diuresis. She never required any of this and has now been downgraded back to PCU status. She continues to receive medications for diuresis. Review of Systems Review of Systems: All systems reviewed & are unremarkable except as noted in Subjective Physical Exam Constitutional: WD/WN, vitals as above Neck: trachea midline, no thyromegaly Respiratory: normal respiratory effort, lungs clear to auscultation Cardiovascular: RRR, no murmur, no edema Gastrointestinal (Abdomen): normal bowel sounds, soft, nontender, no hepatosplenomegaly Musculoskeletal: Extremities: extremities normal to inspection Skin: no rashes, warm and dry Neurologic: Nonfocal exam Lymphatic: no cervical lymphadenopathy Results & Data Results & Data ([facility] [place]) Vital Signs (Past 12 Hours) Vital Signs Temp Pulse Pulse Resp BP Pulse Ox O2 Del Method 07/29/22 15:04 72 18 95 Nasal Cannula 07/29/22 11:39 67 16 92 Nasal Cannula 07/29/22 11:28 36.7 C 07/29/22 11:04 97/67 L 07/29/22 11:04 68 24 91 Nasal Cannula 07/29/22 10:00 66 20 07/29/22 08:44 90/66 L 07/29/22 08:44 66 24 93 07/29/22 08:05 68 26 H 92 07/29/22 07:25 117/81 07/29/22 08:00 36.6 C 07/29/22 08:00 07/29/22 08:00 Nasal Cannula 07/29/22 07:50 64 16 97 Nasal Cannula 07/29/22 07:00 60 18 124/87 97 Nasal Cannula 07/29/22 06:00 56 L 15 95 07/29/22 05:00 56 L 15 94 07/29/22 04:01 125/81 07/29/22 04:01 57 L 19 93 Nasal Cannula 07/29/22 04:00 56 L 14 91 07/29/22 04:28 36.5 C O2 Del Method O2 Flow Rate 07/29/22 15:04 4 07/29/22 11:39 4 07/29/22 11:28 07/29/22 11:04 07/29/22 11:04 4 07/29/22 10:00 07/29/22 08:44 07/29/22 08:44 07/29/22 08:05 07/29/22 07:25 07/29/22 08:00 07/29/22 08:00 Nasal Cannula 07/29/22 08:00 4 07/29/22 07:50 6 07/29/22 07:00 6 07/29/22 06:00 07/29/22 05:00 07/29/22 04:01 07/29/22 04:01 6 07/29/22 04:00 07/29/22 04:28 Critical Care Results & Data Vital Signs (Past 12 Hours) Vital Signs Temp Pulse Pulse Resp BP Pulse Ox O2 Del Method 07/29/22 15:04 72 18 95 Nasal Cannula 07/29/22 11:39 67 16 92 Nasal Cannula 07/29/22 11:28 36.7 C 07/29/22 11:04 97/67 L 07/29/22 11:04 68 24 91 Nasal Cannula 07/29/22 10:00 66 20 07/29/22 08:44 90/66 L 07/29/22 08:44 66 24 93 07/29/22 08:05 68 26 H 92 07/29/22 07:25 117/81 07/29/22 08:00 36.6 C 07/29/22 08:00 07/29/22 08:00 Nasal Cannula 07/29/22 07:50 64 16 97 Nasal Cannula 07/29/22 07:00 60 18 124/87 97 Nasal Cannula 07/29/22 06:00 56 L 15 95 07/29/22 05:00 56 L 15 94 07/29/22 04:01 125/81 07/29/22 04:01 57 L 19 93 Nasal Cannula 07/29/22 04:00 56 L 14 91 07/29/22 04:28 36.5 C O2 Del Method O2 Flow Rate 07/29/22 15:04 4 07/29/22 11:39 4 07/29/22 11:28 07/29/22 11:04 07/29/22 11:04 4 07/29/22 10:00 07/29/22 08:44 07/29/22 08:44 07/29/22 08:05 07/29/22 07:25 07/29/22 08:00 07/29/22 08:00 Nasal Cannula 07/29/22 08:00 4 07/29/22 07:50 6 07/29/22 07:00 6 07/29/22 06:00 07/29/22 05:00 07/29/22 04:01 07/29/22 04:01 6 07/29/22 04:00 07/29/22 04:28 Lab & Micro Results (Past 24 Hours) RBC 5.38 M/uL (3.93-5.22) H 07/29/22 WBC 11.45 K/ul (4.8-10.8) H 07/29/22 Hgb 15.1 g/dl (12.0-16.0) 07/29/22 Hct 45.5 % (34.1-44.9) H 07/29/22 MCV 84.6 fL (80.0-100.0) 07/29/22 MCH 28.1 pg (25.0-34.0) 07/29/22 MCHC 33.2 g/dL (32.0-36.0) 07/29/22 RDW Standard Deviation 52.2 fL (36.4-46.3) H 07/29/22 RDW Coefficient of Variation 17.1 % (11.5-14.5) H 07/29/22 Plt Count 258 K/uL (130-400) 07/29/22 MPV 10.7 fL (9.4-12.3) 07/29/22 Nucleated Red Blood Cells % (auto) 0.2 % 07/29 Nucleated RBC Absolute Count (auto) 0.02 K/uL (0-0) H 07/14 02/02 Neutrophils (%) (Auto) 60.9 % 07/29/22 Lymphocytes (%) (Auto) 29.4 % 07/29/22 Monocytes # (Auto) 0.85 K/uL (0.24-0.82) H 07/29/22 Eosinophils # (Auto) 0.11 K/uL (0-0.50) 07/29/22 Immature Granulocyte % (Auto) 1.0 % 07/29/22 Neutrophils # (Auto) 6.98 K/uL (1.4-6.5) H 07/29/22 Lymphocytes # (Auto) 3.37 K/uL (1.2-3.4) 07/29/22 Monocytes # (Auto) 0.85 K/uL (0.24-0.82) H 07/29/22 Eosinophils # (Auto) 0.11 K/uL (0-0.50) 07/29/22 Basophils # (Auto) 0.03 K/uL (0-0.2) 07/29/22 Immature Granulocyte # (Auto) 0.11 K/uL (0.00-0.02) H 07/29 Na 129 mmol/L (136-145) L 07/29/22 K 4.2 mmol/L (3.5-5.1) 07/29/22 Cl 87 mmol/L (98-107) L 07/29/22 CO2 38 mmol/L (21-32) H 07/29/22 Anion Gap 4 (3-11) 07/29/22 BUN 21 mg/dl (6-23) 07/29/22 Creatinine 0.84 mg/dl (0.6-1.2) 07/29/22 Estimated GFR ( Amer) 90.7 ml/min 07/29/22 Estimated GFR (Non-Af Amer) 78.2 ml/min 07/29/22 BUN/Creatinine Ratio 25.0 (10-20) H 07/29/22 Glu 87 mg/dl (70-99(Fasting)) 07/29/22 Ca 9.4 mg/dl (8.5-10.1) 07/29/22 Phosphorus Level 4.5 mg/dl (2.5-4.9) 07/29/22 Mg 1.9 mg/dl (1.7-2.4) 07/29/22 04:23 Calcium Level 9.4 mg/dl (8.5-10.1) 07/29/22 04:23 Microbiology 07/24/22 00:37 Aerobic Blood Culture - Final Blood No growth in Aerobic bottle after 5 days. Anaerobic Blood Culture - Final No growth in Anaerobic bottle after 5 days. 07/24/22 00:32 Aerobic Blood Culture - Final Blood No growth in Aerobic bottle after 5 days. Anaerobic Blood Culture - Final No growth in Anaerobic bottle after 5 days. I & O Totals 24 Hours 07/28/22 07/29/22 07/30/22 06:59 06:59 06:59 Intake Total 927.5 / 927.5 807.5 / 807.5 705 / 705 Output Total 2402 / 2402 1800 / 1800 1501 / 1501 Balance -1474.5 / -1474.5 -992.5 / -992.5 -796 / -796 Cumulative 07/23/22 19:24 thru 07/29/22 13:31 Intake Total 6975.834 Output Total 93093 Balance -08388.166 RT Ventilator Mngmt (Last Documented) Ventilator Ordered Settings Respiratory Rate 18 07/29/22 15:04 Fraction of Inspired Oxygen 50 07/24/22 03:00 Ventilator - PT Measurements Respiratory Rate 18 PG Care Time/CCT Total # of Minutes Spent Total Time Spent with Patient: Total time spent is greater than 50% in coordination of care (as documented) at patient's floor/unit and/or counseling patient: Coding Level of Care Code 35219 Subseq Hosp Care Lvl 3 Diagnoses Pulmonary hypertension I27.20 Hypoxia R09.02 Interstitial lung disease J84.9 Acute and chronic respiratory failure J96.20
[2022-07-29] MEDS: acetaZOLAMIDE 250 MG in DEXTROSE 5% 100 ML IV SCH (20:54)
[2022-07-30] MEDS: LEVOTHYROXINE SODIUM 88 MCG TABLET PO SCH (06:26)
[2022-07-30] MEDS: FUROSEMIDE 40 MG/4 ML VIAL IV SCH ×3 (06:27→17:28)
[2022-07-30 07:02] LABS: Basophils # (auto) 0.01 K/uL (0-0.2); Basophils % (auto) 0.1 %; Eosinophils # (auto) 0.15 K/uL (0-0.50); Eosinophils % (auto) 1.6 %; Hematocrit (blood only) 42.5 % (34.1-44.9); Hemoglobin 13.9 g/dl (12.0-16.0); Immature Granulocytes # (auto) 0.12 K/uL (0.00-0.02); Immature Granulocytes % (auto) 1.3 %; Lymphocytes # (auto) 2.61 K/uL (1.2-3.4); Lymphocytes % (auto) 28.4 %; Mean Corpuscular Hemoglobin 27.7 pg (25.0-34.0); Mean Corpuscular Hgb Conc 32.7 g/dL (32.0-36.0); Mean Corpuscular Volume 84.7 fL (80.0-100.0); Mean Platelet Volume 10.2 fL (9.4-12.3); Monocytes # (auto) 0.95 K/uL (0.24-0.82); Monocytes % (auto) 10.3 %; Neutrophils # (auto) 5.34 K/uL (1.4-6.5); Neutrophils % (auto) 58.3 %; Nucleated RBC # (auto) 0.02 K/uL (0-0); Nucleated RBC % (auto) 0.2 %; Platelet Count 237 K/uL (130-400); RDW Standard Deviation 51.1 fL (36.4-46.3); Red Blood Count 5.02 M/uL (3.93-5.22); White Blood Count 9.18 K/ul (4.8-10.8)
[2022-07-30] MEDS: ALBUT/IPRATROP 3MG/0.5MG NEB 3 ML VIAL NEB SCH ×3 (07:11→15:34)
[2022-07-30 07:22] LABS: Calcium 8.9 mg/dl (8.5-10.1); Est GFR (African American) 96.2 ml/min; Potassium 3.9 mmol/L (3.5-5.1)
[2022-07-30] MEDS: CARBOHYDRATES FOR HYPOGLYCEMIA PO PRN ×2 (07:30→07:45)
[2022-07-30] MEDS: predniSONE 10 MG TABLET PO SCH (08:56)
[2022-07-30] MEDS: METOPROLOL SUCC 50MG EXT REL TAB PO SCH (08:57)
[2022-07-30] MEDS: ADVANCED PROBIOTIC 1250 MG CAPSULE PO SCH (08:57)
[2022-07-30] MEDS: CYANOCOBALAMIN (B-12) 500 MCG TABLET PO SCH (08:57)
[2022-07-30] MEDS: metOLazone 2.5 MG TABLET PO SCH (08:57)
[2022-07-30] MEDS: CITALOPRAM 20 MG TAB PO SCH (08:57)
[2022-07-30] MEDS: POTASSIUM CHLORIDE CRTAB 20 MEQ TABCR PO SCH ×2 (09:05→20:18)
[2022-07-30] MEDS: ENOXAPARIN INJ 40 MG/0.4 ML SYR SQ SCH ×2 (09:05→20:18)
[2022-07-30] MEDS: MAGNESIUM OXIDE 400 MG TAB PO SCH ×2 (09:06→20:18)
[2022-07-30] MEDS: CLOTRIMAZOLE 1% CR 15 GM TUBE TOP SCH ×2 (09:06→20:18)
[2022-07-30] MEDS: INSULIN ASPART PER UNIT SC SCH ×4 (09:08→20:18)
[2022-07-30] MEDS: NEOMYCIN/POLYMYX/BACITR OINT 15 GM TUBE EXT SCH ×2 (09:09→20:18)
[2022-07-30] MEDS: ACETAZOLAMIDE IV SCH (09:43)
[2022-07-30] MEDS: DEXTROSE 5% IV SCH (09:43)
--- NOTE | 2022-07-30 09:43 | Nephrology Progress Note ---
Date of Service July 30, 2022 Assessment & Plan (1) Acute and chronic respiratory failure: Plan: Multifactorial from post covid fibrosis and pulmonary HTN, acute cor pulmonale. She uses 3L at baseline and 4L w/ exertion. Currently needing 4-6 L at rest. In January 2022 her PH was moderate and now is severe (though limitations on TTE w/ volume overload). >Good UOP--Continue on lasix 60 mg IV dosed at 6, noon, 1800 ,continue intensified acetazolamide to 500 mg IV bid and 2.5 mg daily metolazone -diuretics limited potentially by hypotension >> lowered ARB dose to 80 mg daily starting today >>again to adequately diurese, may need to consider milrinone or dobutamine;per cardiology -continue to work w/ pt to get her to use bipap/cpap overnight in house -standing weight only; dietary measures as above -may need to consider tertiary care depending on course (2) Metabolic alkalosis with respiratory acidosis: Plan: continue lasix/ acetazolamide/ metolazone as above > > chronic respiratory acidosis w/ contraction alkalosis >> OK for now -daily bmp >acid base issues for now are stabilized > chronic respiratory acidosis now with contraction alkalosis; at some risk for acute renal failure w/ diuresis Admission and Anticipated Discharge Date Admission Date: July 23, 2022 Subjective Leg swelling slowly improving Dyspnea about the same as yesterday Blood pressure relatively well, asymptomatic Denies any chest pain, dizziness, nausea, abdominal Review of Systems Review of Systems: Leg swelling slowly improving Dyspnea about the same as yesterday l Physical Exam Physical Exam: Vitals signs as noted above General Appearance:Morbidly obese, no apparent distress Head: normocephalic, Atraumatic Eyes: normal inspection, EOMI Neck: supple, Trachea midline Respiratory/Chest: Decreased breath sounds, basal crackles, No accessory muscle use Cardiovascular: S1, S2, No murmur Abdomen/GI:Soft, Non tender, Bowel sounds present Extremities/Musculoskeletal:normal inspection, 2+ B/L LE edema Neurologic/Psych:AAOX3, grossly no focal neurological deficits Skin: normal color, warm Results & Data ([place]) Vital Signs (Past 12 Hours) Vital Signs Temp Pulse Resp BP Pulse Ox O2 Del Method O2 Del Method 07/30/22 08:00 Nasal Cannula 07/30/22 08:00 Nasal Cannula 07/30/22 08:35 37.3 C 80 20 116/79 91 Nasal Cannula 07/30/22 07:12 64 18 97 Nasal Cannula 07/30/22 03:23 36.5 C 65 21 114/68 96 Nasal Cannula 07/29/22 22:51 Nasal Cannula 07/29/22 22:48 36.5 C 71 20 111/81 94 Nasal Cannula O2 Flow Rate O2 Flow Rate 07/30/22 08:00 3 07/30/22 08:00 3 07/30/22 08:35 4.0 07/30/22 07:12 4 07/30/22 03:23 4 07/29/22 22:51 4 07/29/22 22:48 4 Laboratory Results 07/30/22 06:18 07/30/22 06:18
--- NOTE | 2022-07-30 09:57 | Cardiology Progress Note ---
Date of Service July 30, 2022 Assessment & Plan (1) Pulmonary hypertension: (2) Idiopathic interstitial pneumonia: (3) Hypoxia: (4) Cor pulmonale: (5) Leg edema: (6) Respiratory acidosis: (7) Metabolic alkalosis: (8) Hypotension: (9) Volume overload: (10) Chronic respiratory failure with hypoxia: Plan The patient continues to diuresis. I would continue current treatment and reassess tomorrow. Admission and Anticipated Discharge Date Admission Date: July 23, 2022 Subjective The patient had an uneventful night. Review of Systems Review of Systems: Review of Systems: See HPI for pertinent positives. All other 10 point review of systems are negative. Physical Exam Physical Exam: General: no acute distress and stated age Head: normocephalic, no masses, lesions, tenderness or abnormalities Eyes: conjunctiva are pink and non-injected, sclera clear Neck: supple, no adenopathy, no bruits, normal jugular venous pulse, no hepatojugular reflux Chest: normal shape and normal respiratory effort Lungs: clear to auscultation and percussion Cardiac Exam: - regular rate & rhythm, no murmurs gallops or rubs - normal S1, normal S2 Pulses: 2(+) throughout Abdomen: abdomen soft, non-tender, no abnormal masses and no hepatosplenomegaly Musculoskeletal: no gait disturbance, no joint inflammation, no deforming arthritis Extremities: Edema improved some excoriations of the lower extremities Neuro: grossly normal exam Results & Data ([facility]) Vital Signs (Past 12 Hours) Vital Signs Temp Pulse Resp BP Pulse Ox O2 Del Method O2 Del Method 07/30/22 08:00 Nasal Cannula 07/30/22 08:00 Nasal Cannula 07/30/22 08:35 37.3 C 80 20 116/79 91 Nasal Cannula 07/30/22 07:12 64 18 97 Nasal Cannula 07/30/22 03:23 36.5 C 65 21 114/68 96 Nasal Cannula 07/29/22 22:51 Nasal Cannula 07/29/22 22:48 36.5 C 71 20 111/81 94 Nasal Cannula O2 Flow Rate O2 Flow Rate 07/30/22 08:00 3 07/30/22 08:00 3 07/30/22 08:35 4.0 07/30/22 07:12 4 07/30/22 03:23 4 07/29/22 22:51 4 07/29/22 22:48 4 Laboratory Results Laboratory Results - last 24 hr 07/29/22 07/29/22 07/29/22 11:03 16:20 20:46 WBC RBC Hgb Hct MCV MCH MCHC RDW Std Deviation RDW Coeff of Lulu Plt Count MPV Immature Gran % (Auto) Neut % (Auto) Lymph % (Auto) [place] % (Auto) Eos % (Auto) Baso % (Auto) Neut # (Auto) Lymph # (Auto) [place] # (Auto) Eos # (Auto) Baso # (Auto) Immature Gran # (Auto) Absolute Nucleated RBC Nucleated RBC % (auto) Sodium Potassium Chloride Carbon Dioxide Anion Gap BUN Creatinine Est Cr Clr Drug Dosing Est GFR ( Amer) Est GFR (Non-Af Amer) BUN/Creatinine Ratio Glucose POC Glucose 251 H 227 H 135 H Calcium Phosphorus 07/30/22 07/30/22 07/30/22 06:18 06:18 07:26 WBC 9.18 RBC 5.02 Hgb 13.9 Hct 42.5 MCV 84.7 MCH 27.7 MCHC 32.7 RDW Std Deviation 51.1 H RDW Coeff of Lulu 17.0 H Plt Count 237 MPV 10.2 Immature Gran % (Auto) 1.3 Neut % (Auto) 58.3 Lymph % (Auto) 28.4 [place] % (Auto) 10.3 Eos % (Auto) 1.6 Baso % (Auto) 0.1 Neut # (Auto) 5.34 Lymph # (Auto) 2.61 [place] # (Auto) 0.95 H Eos # (Auto) 0.15 Baso # (Auto) 0.01 Immature Gran # (Auto) 0.12 H Absolute Nucleated RBC 0.02 H Nucleated RBC % (auto) 0.2 Sodium 129 L Potassium 3.9 Chloride 84 L Carbon Dioxide 42 H* Anion Gap 3 BUN 20 Creatinine 0.80 Est Cr Clr Drug Dosing 88.0 Est GFR ( Amer) 96.2 Est GFR (Non-Af Amer) 83.0 BUN/Creatinine Ratio 25.0 H Glucose 56 L POC Glucose 57 L* Calcium 8.9 Phosphorus 5.0 H 07/30/22 07/30/22 07/30/22 07:27 07:44 08:01 WBC RBC Hgb Hct MCV MCH MCHC RDW Std Deviation RDW Coeff of Lulu Plt Count MPV Immature Gran % (Auto) Neut % (Auto) Lymph % (Auto) [place] % (Auto) Eos % (Auto) Baso % (Auto) Neut # (Auto) Lymph # (Auto) [place] # (Auto) Eos # (Auto) Baso # (Auto) Immature Gran # (Auto) Absolute Nucleated RBC Nucleated RBC % (auto) Sodium Potassium Chloride Carbon Dioxide Anion Gap BUN Creatinine Est Cr Clr Drug Dosing Est GFR ( Amer) Est GFR (Non-Af Amer) BUN/Creatinine Ratio Glucose POC Glucose 57 L* 62 L* 128 H Calcium Phosphorus Medications Administered Current Inpatient Medications Acetaminophen (Acetaminophen 325 Mg Tab) 650 mg PO Q4H PRN PRN Reason: Pain or Fever Stop: 08/22/22 23:33 Albuterol (Albuterol Hfa 8 Gm Inhaler) 2 puffs INH Q6H PRN PRN Reason: Wheezing Stop: 08/22/22 23:33 Albuterol (Albut/Ipratrop 3mg/0.5mg Neb 3 Ml Vial) 3 ml NEB QIDR RAEANN; Protocol Stop: 08/23/22 06:59 Last Admin: 07/30/22 07:11 Dose: 3 ml Benzonatate (Benzonatate 100 Mg Capsule) 100 mg PO TID PRN PRN Reason: Cough Stop: 08/22/22 23:33 Citalopram Hydrobromide (Citalopram 20 Mg Tab) 10 mg PO QAM [facility] Stop: 08/23/22 08:59 Last Admin: 07/30/22 08:57 Dose: 10 mg Clotrimazole (Clotrimazole 1% Cr 15 Gm Tube) 1 appln TOP BID [facility] Stop: 08/23/22 08:59 Last Admin: 07/30/22 09:06 Dose: 1 appln Cyanocobalamin (Cyanocobalamin (B-12) 500 Mcg Tablet) 1,000 mcg PO DAILY [facility] Stop: 08/23/22 08:59 Last Admin: 07/30/22 08:57 Dose: 1,000 mcg Dextrose (Dextrose 50% 50 Ml Syringe) 25 - 50 ml IV UD PRN; Protocol PRN Reason: Hypoglycemia Protocol Stop: 08/22/22 23:44 Enoxaparin Sodium (Enoxaparin Inj 40 Mg/0.4 Ml Syr) 40 mg SQ Q12 [facility] Stop: 08/22/22 23:33 Last Admin: 07/30/22 09:05 Dose: 40 mg Furosemide (Furosemide 40 Mg/4 Ml Vial) 60 mg IV TID@0600,1200,1800 [facility] Stop: 08/28/22 11:59 Last Admin: 07/30/22 06:27 Dose: 60 mg Glucagon (Glucagon For Inj 1 Mg Vial) 1 mg IM UD PRN; Protocol PRN Reason: Hypoglycemia Protocol Stop: 08/22/22 23:44 Glucose (Glucose 40% Gel 15 Gm Tube) 15 - 30 gm PO UD PRN; Protocol PRN Reason: Hypoglycemia Protocol Stop: 08/22/22 23:44 Glucose (Glucose 10 Tab/Tube) 4 - 8 tab PO UD PRN; Protocol PRN Reason: Hypoglycemia Protocol Stop: 08/22/22 23:44 Guaifenesin/Codeine Phosphate (Guaifenesin/Codeine 200mg/20mg 10ml Udc) 10 ml PO Q6H PRN PRN Reason: Cough Stop: 08/22/22 23:33 Acetazolamide 500 mg/ Dextrose 105 mls @ 100 mls/hr IV DAILY [facility] Stop: 08/01/22 15:59 Last Admin: 07/30/22 09:43 Dose: 100 mls/hr Acetazolamide 250 mg/ Dextrose 102.5 mls @ 100 mls/hr IV QPM [facility] Stop: 08/01/22 15:59 Last Infusion: 07/29/22 21:56 Dose: Infused Insulin Aspart (Insulin Aspart Per Unit) 0 units SC AC [facility]; Protocol Stop: 08/23/22 07:29 Last Admin: 07/30/22 09:08 Dose: 3 units Insulin Aspart (Insulin Aspart Per Unit) 0 units SC [facility]; Protocol Stop: 08/26/22 20:59 Last Admin: 07/29/22 20:49 Dose: Not Given Insulin Human NPH (Novolin-N (Nph) Per Unit Charge) 15 units SQ DAILY [facility]; Protocol Stop: 07/31/22 08:59 Last Admin: 07/29/22 07:54 Dose: 15 units Lactobacillus Acidophilus (Advanced Probiotic 1250 Mg Capsule) 2 cap PO DAILY [facility] Stop: 08/23/22 08:59 Last Admin: 07/30/22 08:57 Dose: 2 cap Levothyroxine Sodium (Levothyroxine Sodium 88 Mcg Tablet) 88 mcg PO DAILYBB [facility] Stop: 08/23/22 06:29 Last Admin: 07/30/22 06:26 Dose: 88 mcg Magnesium Oxide (Magnesium Oxide 400 Mg Tab) 400 mg PO BID [facility] Stop: 08/25/22 20:59 Last Admin: 07/30/22 09:06 Dose: 400 mg Metolazone (Metolazone 2.5 Mg Tablet) 2.5 mg PO QAM [facility] Stop: 08/28/22 09:14 Last Admin: 07/30/22 08:57 Dose: 2.5 mg Metoprolol Succinate (Metoprolol Succ 50mg Ext Rel Tab) 100 mg PO QAM [facility] Stop: 08/23/22 08:59 Last Admin: 07/30/22 08:57 Dose: 100 mg Miscellaneous (Carbohydrates For Hypoglycemia ) 15 - 30 gm PO UD PRN PRN Reason: Hypoglycemia Treatment Stop: 08/22/22 23:44 Last Admin: 07/30/22 07:45 Dose: 15 gm Miscellaneous Information (Pharmacy Glycemic Mgmt Consult) 1 each N/A UD PRN; Protocol PRN Reason: Consult Stop: 08/23/22 06:02 Neomycin/Polymyxin/Bacitracin (Neomycin/Polymyx/Bacitr Oint 15 Gm Tube) 1 appln EXT BID [facility] Stop: 08/25/22 09:59 Last Admin: 07/30/22 09:09 Dose: 1 appln Nitroglycerin (Nitroglycerin Sl 0.4 Mg/Tab Tab) 0.4 mg SL UD PRN PRN Reason: Chest Pain Stop: 08/22/22 23:33 Polyethylene Glycol (Polyethylene (Miralax) 17 Gm Pack) 17 gm PO DAILY PRN PRN Reason: Constipation Stop: 08/22/22 23:33 Potassium Chloride (Potassium Chloride Crtab 20 Meq Tabcr) 20 meq PO BID [facility] Stop: 08/27/22 08:59 Last Admin: 07/30/22 09:05 Dose: 20 meq Prednisone (Prednisone 10 Mg Tablet) 10 mg PO DAILY [facility] Stop: 08/04/22 08:59 Last Admin: 07/30/22 08:56 Dose: 10 mg Rosuvastatin Calcium (Rosuvastatin Calcium 5 Mg Tab) 5 mg PO SuWe@0900 [facility] Stop: 08/23/22 08:59 Last Admin: 07/27/22 08:15 Dose: 5 mg
[2022-07-30] MEDS ORDERED: NovoLIN-N (NPH) PER UNIT CHARGE SQ ONE (11:45)
--- NOTE | 2022-07-30 12:06 | Pharmacy Report ---
Pharmacy Glycemic Short Note 2 - Date of Service July 30, 2022 - Glycemic Short BSG Results (Last 24 hours): 07/29/22 07/29/22 07/30/22 16:20 20:46 06:18 Glucose 56 L POC Glucose 227 H 135 H 07/30/22 07/30/22 07/30/22 07:26 07:27 07:44 Glucose POC Glucose 57 L* 57 L* 62 L* 07/30/22 07/30/22 08:01 11:19 Glucose POC Glucose 128 H 244 H OUTPATIENT ANTIDIABETIC REGIMEN: * Metformin 2 gm PO daily * Glipizide 10 mg PO daily * HbA1c: 12.3% (07/24/22), could be affected by outpatient steroid use ASSESSMENT: 07/30: * Patient received total of 53 units of insulin yesterday, of which 15 units were NPH * Fasting low this AM 56 mg/dL - will decrease NPH dose in half for this morning as unclear what is contributing to lower fasting - no novolog given at HS time 07/29: * Ale never require pressor/inotropic support upon transfer to the ICU. Stressors are stable at this point and will be downgraded from ICU. * Remains on Prednisone 20 mg PO daily. Continue with NPH to cover for steroid- induced hyperglycemia. Of note, steroids are set to discontinue after tomorrow's dose (07/30). Unsure of further taper. * RN did not check a POC BSG this AM and utilized the serum BSG of 87 mg/dL from ~0500 for unknown reasons. Do not believe that this BSG was truly contracts representative of what the patient truly was. No AM Novolog was given and not documented whether the patient ate breakfast or not. * Lunchtime BSG was 251 mg/dL. Do not feel comfortable making any changes to insulin regimen at today given uncertainty of AM and lunchtime BSGs. 07/28: * Stressors stable * AM fasting BSG still below goal range but not hypoglycemic and is trending up from yesterday - no change to NPH * Post-prandial BSG's elevated. Will tighten Novolog parameters AC but leave looser HS 07/27: * This morning, the patient experienced another episode of hypoglycemia ( BSG 67 mg/dL). This may be due to overcorrection of previous nighttime BSG (267 mg/dL). * HS correction factor will be loosened to prevent opportunity for overcorrection of nightime BSG and subsequent hypoglycemic episodes. * Mealtime carb coverage will be tightened in observance of elevated postprandial BSG's * Will continue NPH 15 units daily alongside of prednisone 20mg daily to match pharmacokinetic peak. Will continue to avoid Lantus use due to low fasting BSG's. PLAN FOR INPATIENT GLYCEMIC CONTROL: * Hold outpatient oral diabetes medications * Basal insulin * NPH 8 SC daily, while on prednisone 10 mg daily * Bolus insulin * NovoLog per scale ACHS or Q6hrs while NPO * Goal Range: Low 110 mg/dL - High 140 mg/dL * Correction Factor: 15 mg/dL/unit with breakfast, lunch and dinner; 30 mg/dL/unit at HS * Carb ratio: 6 g CHO/unit with breakfast, lunch and dinner; -- g CHO/unit at HS
--- NOTE | 2022-07-30 16:16 | Hospitalist Progress Note ---
Date of Service July 30, 2022 Assessment & Plan (1) Hypoxia: Plan: Patient is a 57 yr female who presents with worsening shortness of breath, dvnme-[id number] respiratory failure. Nbstv-xv-rojuedq respiratory failure with Hypoxia Chronic oxygen dependency--on 3-4 L at baseline Chronic interstitial lung disease--Possible Flare H/O COVID Pulmonary artery hypertension Cor pulmonale Chronic steroid dependence Respiratory failure likely multifactorial: Interstitial lung disease, PAH, Right-sided heart failure Metabolic alkalosis --CT Chest:Cardiomegaly without acute intrathoracic abnormality. Chronic interstitial lung disease with subpleural predominant cysts/honeycombing, subpleural reticulation with groundglass densities and bronchiectasis, right greater than left. The subpleural cystic changes/honeycombing has progressively worsened compared to the 05/06/2021 exam. Mildly improved mediastinal and hilar lymphadenopathy, likely related to the chronic interstitial lung disease. Cardiomegaly with evidence of pulmonary arterial hypertension. Unchanged fusiform dilation of the ascending thoracic aorta, 4.2 cm. --ECHO: EF 60 to 65%. Normal LV chamber size and wall thickness. No segmental left ventricle wall motion abnormality. Flattened septum is consistent with RV pressure/volume overload. D-shaped LV chamber. Grade 1 diastolic dysfunction. Right ventricle is severely dilated. Right ventricular systolic function is severely reduced. Mild aortic regurgitation. Severe tricuspid regurgitation. Severe pulmonary artery hypertension. -- Procalcitonin 0.05 --Blood cultures negative --Urine for Legionella Negative --Nasal MRSA Negative --Continue IV Solu-Medrol>> transition to prednisone taper course --Continue nebs, empiric antibiotics --Continue IV Lasix Monitor I's and O's, daily weight, electrolytes Appreciate Pulmonology/Cardiology/Nephrology/Critical Care Input Needs sleep study as outpatient Wean supplemental oxygen as able Continue Diamox Did not require pressors while in ICU Valsartan dose adjusted Metolazone added Prednisone decreased to 10 mg daily Plan to taper off of steroids in 4 to 6 weeks Continue diuresis Mild troponin elevation Likely demand ischemia secondary to hypoxia Chronic hyponatremia Sodium 129 today Monitor sodium levels Vitamin D deficiency Continue vitamin D supplements Abnormal urinalysis Ruled out UTI Urine culture Negative cefepime discontinued DM II HbA1C 12.3 Continue insulin per protocol Monitor BGs Glycemic pharmacy consulted Hypocalcemia: Likely due to vitamin D deficiency Received IV calcium gluconate Monitor Hypomagnesemia Replete as needed Morbid obesity: BMI 41 Needs counseling Possible sleep apnea Patient refused sleep study as outpatient Depression: Continue citalopram Vitamin B12 deficiency: Continue vitamin B12 supplements. Hypothyroidism: Continue Levothyroxine Hypertension: Continue metoprolol, valsartan Hyperlipidemia: On statin. DVT Px: Lovenox SQ CODE STATUS Full code DISPOSITION: PT/OT prior to discharge Admission and Anticipated Discharge Date Admission Date: July 23, 2022 Subjective Patient is seen and examined at bedside Feels much better today Dyspnea on exertion improved Leg swelling improving Denies any chest pain, dyspnea, dizziness, nausea, abdominal Saturating well on 3 to 4 L supplemental oxygen Review of Systems Review of Systems: All systems reviewed & are unremarkable except as noted in Subjective Physical Exam Physical Exam: Physical Exam: Vitals signs as noted above General Appearance:Morbidly obese, no apparent distress Head: normocephalic, Atraumatic Eyes: normal inspection, EOMI Neck: supple, Trachea midline Respiratory/Chest: Decreased breath sounds, L basal crackles, No accessory muscle use Cardiovascular: S1, S2, No murmur Abdomen/GI:Soft, Non tender, Bowel sounds present Extremities/Musculoskeletal:normal inspection, 2+ B/L LE edema Neurologic/Psych:AAOX3, grossly no focal neurological deficits Skin: normal color, warm Results & Data Results & Data ([facility]) Vital Signs (Past 12 Hours) Vital Signs Temp Pulse Resp BP Pulse Ox O2 Del Method O2 Del Method 07/30/22 15:34 74 20 87 L Nasal Cannula 07/30/22 12:08 36.8 C 69 21 104/72 92 Nasal Cannula 07/30/22 11:21 69 91 Nasal Cannula 07/30/22 08:00 Nasal Cannula 07/30/22 08:00 Nasal Cannula 07/30/22 08:35 37.3 C 80 20 116/79 91 Nasal Cannula 07/30/22 07:12 64 18 97 Nasal Cannula O2 Flow Rate O2 Flow Rate 07/30/22 15:34 3 07/30/22 12:08 3.0 07/30/22 11:21 3 07/30/22 08:00 3 07/30/22 08:00 3 07/30/22 08:35 4.0 07/30/22 07:12 4 Laboratory Results Short CBC 07/30/22 Range/Units 06:18 WBC 9.18 (4.8-10.8) K/ul Hgb 13.9 (12.0-16.0) g/dl Hct 42.5 (34.1-44.9) % Plt Count 237 (130-400) K/uL [facility] 07/30/22 06:18 Sodium 129 L Potassium 3.9 Chloride 84 L Carbon Dioxide 42 H* BUN 20 Creatinine 0.80 Glucose 56 L Calcium 8.9
[2022-07-30] MEDS: acetaZOLAMIDE 250 MG in DEXTROSE 5% 100 ML IV SCH (20:17)
[2022-07-31] MEDS: LEVOTHYROXINE SODIUM 88 MCG TABLET PO SCH (05:45)
[2022-07-31] MEDS: FUROSEMIDE 40 MG/4 ML VIAL IV SCH ×3 (05:45→18:17)
[2022-07-31 07:20] LABS: Basophils # (auto) 0.04 K/uL (0-0.2); Basophils % (auto) 0.4 %; Eosinophils # (auto) 0.17 K/uL (0-0.50); Eosinophils % (auto) 1.6 %; Hematocrit (blood only) 44.1 % (34.1-44.9); Hemoglobin 14.9 g/dl (12.0-16.0); Immature Granulocytes # (auto) 0.15 K/uL (0.00-0.02); Immature Granulocytes % (auto) 1.4 %; Lymphocytes # (auto) 2.67 K/uL (1.2-3.4); Lymphocytes % (auto) 25.6 %; Mean Corpuscular Hemoglobin 27.7 pg (25.0-34.0); Mean Corpuscular Hgb Conc 33.8 g/dL (32.0-36.0); Mean Platelet Volume 10.7 fL (9.4-12.3); Monocytes # (auto) 1.07 K/uL (0.24-0.82); Monocytes % (auto) 10.3 %; Neutrophils # (auto) 6.33 K/uL (1.4-6.5); Neutrophils % (auto) 60.7 %; Nucleated RBC # (auto) 0.02 K/uL (0-0); Nucleated RBC % (auto) 0.2 %; Platelet Count 267 K/uL (130-400); RDW Coefficient of Variation 17.5 % (11.5-14.5); RDW Standard Deviation 49.1 fL (36.4-46.3); Red Blood Count 5.38 M/uL (3.93-5.22); White Blood Count 10.43 K/ul (4.8-10.8)
[2022-07-31] MEDS: CITALOPRAM 20 MG TAB PO SCH (08:12)
[2022-07-31] MEDS: ROSUVASTATIN CALCIUM 5 MG TAB PO SCH (08:12)
[2022-07-31] MEDS: ADVANCED PROBIOTIC 1250 MG CAPSULE PO SCH (08:13)
[2022-07-31] MEDS: predniSONE 10 MG TABLET PO SCH (08:13)
[2022-07-31] MEDS: NEOMYCIN/POLYMYX/BACITR OINT 15 GM TUBE EXT SCH ×2 (08:13→21:43)
[2022-07-31] MEDS: metOLazone 2.5 MG TABLET PO SCH (08:13)
[2022-07-31] MEDS: METOPROLOL SUCC 50MG EXT REL TAB PO SCH (08:13)
[2022-07-31] MEDS: CYANOCOBALAMIN (B-12) 500 MCG TABLET PO SCH (08:13)
[2022-07-31] MEDS: ENOXAPARIN INJ 40 MG/0.4 ML SYR SQ SCH ×2 (08:14→21:42)
[2022-07-31] MEDS: CLOTRIMAZOLE 1% CR 15 GM TUBE TOP SCH ×2 (08:14→21:44)
[2022-07-31] MEDS: MAGNESIUM OXIDE 400 MG TAB PO SCH ×2 (08:17→21:42)
[2022-07-31] MEDS ORDERED: NovoLIN-N (NPH) PER UNIT CHARGE SQ ONE (09:00)
[2022-07-31 09:05] LABS: BUN Creatinine Ratio 26.8 (10-20); Calcium 9.3 mg/dl (8.5-10.1); Creatinine Clr Calc Pharmacy 71.1 ml/min; Est GFR (African American) 76.2 ml/min; Est GFR (Non-African American) 65.8 ml/min; Magnesium 1.7 mg/dl (1.7-2.4); Phosphorus 5.4 mg/dl (2.5-4.9); Potassium 3.1 mmol/L (3.5-5.1)
[2022-07-31] MEDS ORDERED: POTASSIUM CHLORIDE CRTAB 20 MEQ TABCR PO ONE (09:14)
[2022-07-31] MEDS ORDERED: MAGNESIUM SULFATE / D5W 1 GM/100 ML BAG IV ONE (09:15)
--- NOTE | 2022-07-31 09:59 | Nephrology Progress Note ---
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 She uses 3L at baseline and 4L w/ exertion. Currently needing 4-6 L at rest. In January 2022 her PH was moderate and now is severe (though limitations on TTE w/ volume overload). >Good UOP--Continue on lasix 60 mg IV dosed at 6, noon, 1800 ,continue intensified acetazolamide to 500 mg IV bid and 2.5 mg daily metolazone. -diuretics limited potentially by hypotension >>continue on lowered ARB dose. --Reasses in am to decrease the diuretics. >>again to adequately diurese, may need to consider milrinone or dobutamine;per cardiology -continue to work w/ pt to get her to use bipap/cpap overnight in house -standing weight only; dietary measures as above -may need to consider tertiary care depending on course (2) Metabolic alkalosis with respiratory acidosis: Plan: continue lasix/ acetazolamide/ metolazone as above > > chronic respiratory acidosis w/ contraction alkalosis >> OK for now -daily bmp >acid base issues for now are stabilized > chronic respiratory acidosis now with contraction alkalosis; at some risk for acute renal failure w/ diuresis Admission and Anticipated Discharge Date Admission Date: July 23, 2022 Subjective Dyspnea on exertion improved Leg swelling improving Denies any chest pain, dyspnea, dizziness, nausea, abdominal Review of Systems Review of Systems: Leg swelling slowly improving Dyspnea better l Physical Exam Physical Exam: Vitals signs as noted above General Appearance:Morbidly obese, no apparent distress Head: normocephalic, Atraumatic Eyes: normal inspection, EOMI Neck: supple, Trachea midline Respiratory/Chest: Decreased breath sounds, basal crackles, No accessory muscle use Cardiovascular: S1, S2, No murmur Abdomen/GI:Soft, Non tender, Bowel sounds present Extremities/Musculoskeletal:normal inspection, 2+ B/L LE edema Neurologic/Psych:AAOX3, grossly no focal neurological deficits Skin: normal color, warm Results & Data ([facility]) Vital Signs (Past 12 Hours) Vital Signs Temp Pulse Resp BP BP Pulse Ox Pulse Ox 07/31/22 08:00 07/31/22 08:00 96 07/31/22 07:55 36.7 C 76 18 103/66 97 07/31/22 04:00 58 L 16 93/66 L 96 07/31/22 00:00 07/30/22 23:36 36.9 C 67 18 101/60 90 O2 Del Method O2 Del Method O2 Flow Rate O2 Flow Rate 07/31/22 08:00 Nasal Cannula 3 07/31/22 08:00 Nasal Cannula 2 07/31/22 07:55 Nasal Cannula 4.0 07/31/22 04:00 Nasal Cannula 4 07/31/22 00:00 Nasal Cannula 4 07/30/22 23:36 Nasal Cannula 4 Laboratory Results 07/31/22 06:32 07/31/22 06:32
--- NOTE | 2022-07-31 10:43 | Cardiology Progress Note ---
Date of Service July 31, 2022 Assessment & Plan (1) Pulmonary hypertension: (2) Idiopathic interstitial pneumonia: (3) Hypoxia: (4) Cor pulmonale: (5) Leg edema: (6) Respiratory acidosis: (7) Metabolic alkalosis: (8) Hypotension: (9) Volume overload: (10) Chronic respiratory failure with hypoxia: Plan The patient continues to diuresis. She is improving and her oxygen requirement is decreasing. Nephrology's note is appreciated. Her potassium is low today and Zaroxolyn is known to cause hyponatremia. The patient is on supplements but the addition of magnesium supplements may be beneficial. Admission and Anticipated Discharge Date Admission Date: July 23, 2022 Subjective The patient is clinically stable continues to diuresis. Review of Systems Review of Systems: Review of Systems: See HPI for pertinent positives. All other 10 point review of systems are negative. Physical Exam Physical Exam: General: no acute distress and stated age Head: normocephalic, no masses, lesions, tenderness or abnormalities Eyes: conjunctiva are pink and non-injected, sclera clear Neck: supple, no adenopathy, no bruits, normal jugular venous pulse, no hepato jugular reflux Chest: normal shape and normal respiratory effort Lungs: clear to auscultation and percussion Cardiac Exam: - regular rate & rhythm, no murmurs gallops or rubs - normal S1, normal S2 Pulses: 2(+) throughout Abdomen: abdomen soft, non-tender, no abnormal masses and no hepatosplenomegaly Musculoskeletal: no gait disturbance, no joint inflammation, no deforming arthritis Extremities: Edema improved some excoriations of the lower extremities Neuro: grossly normal exam Results & Data ([facility]) Vital Signs (Past 12 Hours) Vital Signs Temp Pulse Resp BP BP Pulse Ox Pulse Ox 07/31/22 08:00 07/31/22 08:00 96 07/31/22 07:55 36.7 C 76 18 103/66 97 07/31/22 04:00 58 L 16 93/66 L 96 07/31/22 00:00 07/30/22 23:36 36.9 C 67 18 101/60 90 O2 Del Method O2 Del Method O2 Flow Rate O2 Flow Rate 07/31/22 08:00 Nasal Cannula 3 07/31/22 08:00 Nasal Cannula 2 07/31/22 07:55 Nasal Cannula 4.0 07/31/22 04:00 Nasal Cannula 4 07/31/22 00:00 Nasal Cannula 4 07/30/22 23:36 Nasal Cannula 4 Laboratory Results Laboratory Results - last 24 hr 07/30/22 07/30/22 07/30/22 11:19 16:21 19:43 WBC RBC Hgb Hct MCV MCH MCHC RDW Std Deviation RDW Coeff of Lulu Plt Count MPV Immature Gran % (Auto) Neut % (Auto) Lymph % (Auto) Coke % (Auto) Eos % (Auto) Baso % (Auto) Neut # (Auto) Lymph # (Auto) Coke # (Auto) Eos # (Auto) Baso # (Auto) Immature Gran # (Auto) Absolute Nucleated RBC Nucleated RBC % (auto) Sodium Potassium Chloride Carbon Dioxide Anion Gap BUN Creatinine Est Cr Clr Drug Dosing Est GFR ( Amer) Est GFR (Non-Af Amer) BUN/Creatinine Ratio Glucose POC Glucose 244 H 187 H 166 H Calcium Phosphorus Magnesium 07/31/22 07/31/22 07/31/22 06:32 06:32 07:17 WBC 10.43 RBC 5.38 H Hgb 14.9 Hct 44.1 MCV 82.0 MCH 27.7 MCHC 33.8 RDW Std Deviation 49.1 H RDW Coeff of Lulu 17.5 H Plt Count 267 MPV 10.7 Immature Gran % (Auto) 1.4 Neut % (Auto) 60.7 Lymph % (Auto) 25.6 Coke % (Auto) 10.3 Eos % (Auto) 1.6 Baso % (Auto) 0.4 Neut # (Auto) 6.33 Lymph # (Auto) 2.67 Coke # (Auto) 1.07 H Eos # (Auto) 0.17 Baso # (Auto) 0.04 Immature Gran # (Auto) 0.15 H Absolute Nucleated RBC 0.02 H Nucleated RBC % (auto) 0.2 Sodium 128 L Potassium 3.1 L D Chloride 79 L Carbon Dioxide 45 H* Anion Gap 4 BUN 26 H Creatinine 0.97 Est Cr Clr Drug Dosing 71.1 Est GFR ( Amer) 76.2 Est GFR (Non-Af Amer) 65.8 BUN/Creatinine Ratio 26.8 H Glucose 84 POC Glucose 91 Calcium 9.3 Phosphorus 5.4 H Magnesium 1.7 Medications Administered Current Inpatient Medications Acetaminophen (Acetaminophen 325 Mg Tab) 650 mg PO Q4H PRN PRN Reason: Pain or Fever Stop: 08/22/22 23:33 Albuterol (Albuterol Hfa 8 Gm Inhaler) 2 puffs INH Q6H PRN PRN Reason: Wheezing Stop: 08/22/22 23:33 Albuterol (Albut/Ipratrop 3mg/0.5mg Neb 3 Ml Vial) 3 ml NEB QIDR PRN; Protocol PRN Reason: Shortness Of Breath Or Wheezing Stop: 08/23/22 06:59 Benzonatate (Benzonatate 100 Mg Capsule) 100 mg PO TID PRN PRN Reason: Cough Stop: 08/22/22 23:33 Citalopram Hydrobromide (Citalopram 20 Mg Tab) 10 mg PO QAM [facility] Stop: 08/23/22 08:59 Last Admin: 07/31/22 08:12 Dose: 10 mg Clotrimazole (Clotrimazole 1% Cr 15 Gm Tube) 1 appln TOP BID [facility] Stop: 08/23/22 08:59 Last Admin: 07/31/22 08:14 Dose: 1 appln Cyanocobalamin (Cyanocobalamin (B-12) 500 Mcg Tablet) 1,000 mcg PO DAILY [facility] Stop: 08/23/22 08:59 Last Admin: 07/31/22 08:13 Dose: 1,000 mcg Dextrose (Dextrose 50% 50 Ml Syringe) 25 - 50 ml IV UD PRN; Protocol PRN Reason: Hypoglycemia Protocol Stop: 08/22/22 23:44 Enoxaparin Sodium (Enoxaparin Inj 40 Mg/0.4 Ml Syr) 40 mg SQ Q12 [facility] Stop: 08/22/22 23:33 Last Admin: 07/31/22 08:14 Dose: 40 mg Furosemide (Furosemide 40 Mg/4 Ml Vial) 60 mg IV TID@0600,1200,1800 [facility] Stop: 08/28/22 11:59 Last Admin: 07/31/22 05:45 Dose: 60 mg Glucagon (Glucagon For Inj 1 Mg Vial) 1 mg IM UD PRN; Protocol PRN Reason: Hypoglycemia Protocol Stop: 08/22/22 23:44 Glucose (Glucose 40% Gel 15 Gm Tube) 15 - 30 gm PO UD PRN; Protocol PRN Reason: Hypoglycemia Protocol Stop: 08/22/22 23:44 Glucose (Glucose 10 Tab/Tube) 4 - 8 tab PO UD PRN; Protocol PRN Reason: Hypoglycemia Protocol Stop: 08/22/22 23:44 Guaifenesin/Codeine Phosphate (Guaifenesin/Codeine 200mg/20mg 10ml Udc) 10 ml PO Q6H PRN PRN Reason: Cough Stop: 08/22/22 23:33 Acetazolamide 500 mg/ Dextrose 105 mls @ 100 mls/hr IV DAILY [facility] Stop: 08/01/22 15:59 Last Infusion: 07/30/22 10:50 Dose: Infused Acetazolamide 250 mg/ Dextrose 102.5 mls @ 100 mls/hr IV QPM [facility] Stop: 08/01/22 15:59 Last Infusion: 07/30/22 21:34 Dose: Infused Magnesium Sulfate/Dextrose (Magnesium Sulfate / D5w) 1 gm in 100 mls @ 50 mls/hr IV ONE ONE Stop: 07/31/22 11:14 Insulin Aspart (Insulin Aspart Per Unit) 0 units SC AC [facility]; Protocol Stop: 08/23/22 07:29 Last Admin: 07/30/22 17:27 Dose: 12 units Insulin Aspart (Insulin Aspart Per Unit) 0 units SC [facility]; Protocol Stop: 08/26/22 20:59 Last Admin: 07/30/22 20:18 Dose: Not Given Lactobacillus Acidophilus (Advanced Probiotic 1250 Mg Capsule) 2 cap PO DAILY [facility] Stop: 08/23/22 08:59 Last Admin: 07/31/22 08:13 Dose: 2 cap Levothyroxine Sodium (Levothyroxine Sodium 88 Mcg Tablet) 88 mcg PO DAILYBB [facility] Stop: 08/23/22 06:29 Last Admin: 07/31/22 05:45 Dose: 88 mcg Magnesium Oxide (Magnesium Oxide 400 Mg Tab) 400 mg PO BID [facility] Stop: 08/25/22 20:59 Last Admin: 07/31/22 08:17 Dose: 400 mg Metolazone (Metolazone 2.5 Mg Tablet) 2.5 mg PO QAM [facility] Stop: 08/28/22 09:14 Last Admin: 07/31/22 08:13 Dose: 2.5 mg Metoprolol Succinate (Metoprolol Succ 50mg Ext Rel Tab) 100 mg PO QAM [facility] Stop: 08/23/22 08:59 Last Admin: 07/31/22 08:13 Dose: 100 mg Miscellaneous (Carbohydrates For Hypoglycemia ) 15 - 30 gm PO UD PRN PRN Reason: Hypoglycemia Treatment Stop: 08/22/22 23:44 Last Admin: 07/30/22 07:45 Dose: 15 gm Miscellaneous Information (Pharmacy Glycemic Mgmt Consult) 1 each N/A UD PRN; Protocol PRN Reason: Consult Stop: 08/23/22 06:02 Neomycin/Polymyxin/Bacitracin (Neomycin/Polymyx/Bacitr Oint 15 Gm Tube) 1 appln EXT BID [facility] Stop: 08/25/22 09:59 Last Admin: 07/31/22 08:13 Dose: 1 appln Nitroglycerin (Nitroglycerin Sl 0.4 Mg/Tab Tab) 0.4 mg SL UD PRN PRN Reason: Chest Pain Stop: 08/22/22 23:33 Polyethylene Glycol (Polyethylene (Miralax) 17 Gm Pack) 17 gm PO DAILY PRN PRN Reason: Constipation Stop: 08/22/22 23:33 Potassium Chloride (Potassium Chloride Crtab 20 Meq Tabcr) 40 meq PO BID [facility] Stop: 08/30/22 20:59 Prednisone (Prednisone 10 Mg Tablet) 10 mg PO DAILY [facility] Stop: 08/04/22 08:59 Last Admin: 07/31/22 08:13 Dose: 10 mg Rosuvastatin Calcium (Rosuvastatin Calcium 5 Mg Tab) 5 mg PO SuWe@0900 [facility] Stop: 08/23/22 08:59 Last Admin: 07/31/22 08:12 Dose: 5 mg
[2022-07-31] MEDS: INSULIN ASPART PER UNIT SC SCH ×4 (10:59→21:33)
[2022-07-31] MEDS: ACETAZOLAMIDE IV SCH (11:08)
[2022-07-31] MEDS: DEXTROSE 5% IV SCH (11:08)
[2022-07-31] MEDS: POTASSIUM CHLORIDE CRTAB 20 MEQ TABCR PO SCH ×2 (11:10→21:42)
[2022-07-31] MEDS: ALBUT/IPRATROP 3MG/0.5MG NEB 3 ML VIAL NEB PRN (15:00)
--- NOTE | 2022-07-31 15:18 | Hospitalist Progress Note ---
Date of Service July 31, 2022 Assessment & Plan (1) Hypoxia: Plan: Patient is a 57 yr female who presents with worsening shortness of breath, [id number] respiratory failure. Mcsmu-ap-fxhxkpu respiratory failure with Hypoxia Chronic oxygen dependency--on 3-4 L at baseline Chronic interstitial lung disease--Possible Flare H/O COVID Pulmonary artery hypertension Cor pulmonale Chronic steroid dependence Respiratory failure likely multifactorial: Interstitial lung disease, PAH, Right-sided heart failure Metabolic alkalosis --CT Chest:Cardiomegaly without acute intrathoracic abnormality. Chronic interstitial lung disease with subpleural predominant cysts/honeycombing, subpleural reticulation with groundglass densities and bronchiectasis, right greater than left. The subpleural cystic changes/honeycombing has progressively worsened compared to the 05/06/2021 exam. Mildly improved mediastinal and hilar lymphadenopathy, likely related to the chronic interstitial lung disease. Cardiomegaly with evidence of pulmonary arterial hypertension. Unchanged fusiform dilation of the ascending thoracic aorta, 4.2 cm. --ECHO: EF 60 to 65%. Normal LV chamber size and wall thickness. No segmental left ventricle wall motion abnormality. Flattened septum is consistent with RV pressure/volume overload. D-shaped LV chamber. Grade 1 diastolic dysfunction. Right ventricle is severely dilated. Right ventricular systolic function is severely reduced. Mild aortic regurgitation. Severe tricuspid regurgitation. Severe pulmonary artery hypertension. -- Procalcitonin 0.05 --Blood cultures negative --Urine for Legionella Negative --Nasal MRSA Negative --Continue IV Solu-Medrol>> transition to prednisone taper course --Continue nebs, empiric antibiotics --Continue IV Lasix Monitor I's and O's, daily weight, electrolytes Appreciate Pulmonology/Cardiology/Nephrology/Critical Care Input Needs sleep study as outpatient Wean supplemental oxygen as able Continue Diamox Did not require pressors while in ICU Valsartan held Metolazone added Prednisone decreased to 10 mg daily Plan to taper off of steroids in 4 to 6 weeks Continue dialysis as per nephrology, cardiology Mild troponin elevation Likely demand ischemia secondary to hypoxia Chronic hyponatremia Sodium 128 today Monitor sodium levels Vitamin D deficiency Continue vitamin D supplements Abnormal urinalysis Ruled out UTI Urine culture Negative cefepime discontinued DM II HbA1C 12.3 Continue insulin per protocol Monitor BGs Glycemic pharmacy consulted Hypocalcemia: Likely due to vitamin D deficiency Received IV calcium gluconate Monitor Hypokalemia Hypomagnesemia Replete as needed Morbid obesity: BMI 41 Needs counseling Possible sleep apnea Patient refused sleep study as outpatient Depression: Continue citalopram Vitamin B12 deficiency: Continue vitamin B12 supplements. Hypothyroidism: Continue Levothyroxine Hypertension: Continue metoprolol with holding parameters valsartan held Hyperlipidemia: On statin. DVT Px: Lovenox SQ CODE STATUS Full code DISPOSITION: PT/OT prior to discharge Admission and Anticipated Discharge Date Admission Date: July 23, 2022 Subjective Patient is seen and examined at bedside No new complaints Less oxygen requirement today Leg swelling continues to improve Dyspnea on exertion improved Denies any chest pain, dyspnea, dizziness, nausea, abdominal Review of Systems Review of Systems: All systems reviewed & are unremarkable except as noted in Subjective Physical Exam Physical Exam: Physical Exam: Vitals signs as noted above General Appearance:Morbidly obese, no apparent distress Head: normocephalic, Atraumatic Eyes: normal inspection, EOMI Neck: supple, Trachea midline Respiratory/Chest: Decreased breath sounds, L basal crackles, No accessory muscle use Cardiovascular: S1, S2, No murmur Abdomen/GI:Soft, Non tender, Bowel sounds present Extremities/Musculoskeletal:normal inspection, 2+ B/L LE edema Neurologic/Psych:AAOX3, grossly no focal neurological deficits Skin: normal color, warm Results & Data Results & Data ([facility]) Vital Signs (Past 12 Hours) Vital Signs Temp Pulse Resp BP Pulse Ox Pulse Ox O2 Del Method 07/31/22 15:00 65 18 83 L Nasal Cannula 07/31/22 11:32 37.0 C 70 19 93/71 L 93 Nasal Cannula 07/31/22 08:00 Nasal Cannula 07/31/22 08:00 96 07/31/22 07:55 36.7 C 76 18 103/66 97 Nasal Cannula 07/31/22 04:00 58 L 16 93/66 L 96 Nasal Cannula O2 Del Method O2 Flow Rate O2 Flow Rate 07/31/22 15:00 2 07/31/22 11:32 2.0 07/31/22 08:00 3 07/31/22 08:00 Nasal Cannula 2 07/31/22 07:55 4.0 07/31/22 04:00 4 Laboratory Results Short CBC 07/31/22 Range/Units 06:32 WBC 10.43 (4.8-10.8) K/ul Hgb 14.9 (12.0-16.0) g/dl Hct 44.1 (34.1-44.9) % Plt Count 267 (130-400) K/uL [facility] 07/31/22 06:32 Sodium 128 L Potassium 3.1 L D Chloride 79 L Carbon Dioxide 45 H* BUN 26 H Creatinine 0.97 Glucose 84 Calcium 9.3
[2022-07-31] MEDS: acetaZOLAMIDE 250 MG in DEXTROSE 5% 100 ML IV SCH (22:21)
[2022-07-31] MEDS ORDERED: SODIUM CHLORIDE 0.65% NA SOLN 45 ML (OCEAN) ONE (22:47)
[2022-08-01] MEDS: FUROSEMIDE 40 MG/4 ML VIAL IV SCH ×3 (05:52→17:23)
[2022-08-01] MEDS: LEVOTHYROXINE SODIUM 88 MCG TABLET PO SCH (05:53)
[2022-08-01 06:55] LABS: BUN Creatinine Ratio 32.7 (10-20); Blood Urea Nitrogen 36 mg/dl (6-23); Calcium 9.5 mg/dl (8.5-10.1); Carbon Dioxide > 45 mmol/L (21-32); Chloride 77 mmol/L (98-107); Creatinine Clr Calc Pharmacy 61.7 ml/min; Est GFR (African American) 65.5 ml/min; Est GFR (Non-African American) 56.5 ml/min; Glucose 156 mg/dl (70-99(Fasting)); Sodium 128 mmol/L (136-145)
[2022-08-01] MEDS ORDERED: NovoLIN-N (NPH) PER UNIT CHARGE SQ ONE (08:00)
[2022-08-01] MEDS ORDERED: acetaZOLAMIDE 250 MG in DEXTROSE 5% 100 ML IV ONE (09:00)
[2022-08-01] MEDS: INSULIN ASPART PER UNIT SC SCH ×3 (09:07→17:15)
[2022-08-01] MEDS: METOPROLOL SUCC 50MG EXT REL TAB PO SCH (09:08)
[2022-08-01] MEDS: POTASSIUM CHLORIDE CRTAB 20 MEQ TABCR PO SCH ×2 (09:08→19:44)
[2022-08-01] MEDS: predniSONE 10 MG TABLET PO SCH (09:09)
[2022-08-01] MEDS: NEOMYCIN/POLYMYX/BACITR OINT 15 GM TUBE EXT SCH ×2 (09:09→19:49)
[2022-08-01] MEDS: CITALOPRAM 20 MG TAB PO SCH (09:10)
[2022-08-01] MEDS: CYANOCOBALAMIN (B-12) 500 MCG TABLET PO SCH (09:10)
[2022-08-01] MEDS: ADVANCED PROBIOTIC 1250 MG CAPSULE PO SCH (09:11)
[2022-08-01] MEDS: CLOTRIMAZOLE 1% CR 15 GM TUBE TOP SCH ×2 (09:11→19:46)
[2022-08-01] MEDS: metOLazone 2.5 MG TABLET PO SCH (09:11)
[2022-08-01] MEDS: ENOXAPARIN INJ 40 MG/0.4 ML SYR SQ SCH ×2 (09:12→19:48)
[2022-08-01] MEDS: MAGNESIUM OXIDE 400 MG TAB PO SCH ×2 (09:15→19:44)
--- NOTE | 2022-08-01 09:46 | Nephrology Progress Note ---
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 She uses 3L at baseline and 4L w/ exertion. 02 needs down to baseline past 24 hrs. diuresed 6 kg 07/30-08/01. In January 2022 her PH was moderate and now is severe (though limitations on TTE w/ volume overload). pharmacy supply of acetazolamide exhausted, w/ last dose given this AM adn on back order until August 2022 >so last dose of IV acetazolamide this am > then change to po d/t supplies >continue lasix current dosing for now and 2.5 mg daily metolazone >plan po diuretics tomorrow -had 20 mEq IV K plus 40 mEq bid standing order > apprpriate -continue to work w/ pt to get her to use bipap/cpap overnight in house ->>standing weight only; dietary measures as above (2) Metabolic alkalosis with respiratory acidosis: Plan: continue lasix/ metolazone as above > > chronic respiratory acidosis w/ contraction alkalosis >> contraction alkalosis will worsen w/o acetazolamide, limiting diuresis, though she should have some tolerance -daily bmp >acid base issues for now are stabilized > chronic respiratory acidosis now with contraction alkalosis; at some risk for acute renal failure w/ diuresis and creatinine is [facility] Admission and Anticipated Discharge Date Admission Date: July 23, 2022 Subjective diuresing well. not using cpap hs but willing to consider. can walk w/o pain she says to commode and breathing better. Review of Systems Review of Systems: All systems reviewed & are unremarkable except as noted in Subjective Physical Exam Constitutional: well developed, well nourished and cooperative; no acute di stress sitting up on side of bed Eyes: EOM intact bilaterally ENMT: Ears: no external ear abnormality Nose: no external nose abnormality Mouth: + dry oral mucous membranes Neck: no nuchal rigidity Respiratory: normal respiratory effort and able to speak in complete sentences (but dyspneic) Auscultation: + diminished lung sounds and + crackles (3/[address] up posterior rowe) Cardiovascular: Rate/Rhythm: regular rate and regular rhythm Heart Sounds: + murmur Extremities: + edema (2-3+ BL to knees; wrinkles on BL dorsi feet) Gastrointestinal (Abdomen): Inspection/Auscultation: normal bowel sounds Percussion/Palpation: abdomen soft; abdomen nontender Musculoskeletal: Extremities: strength 5/5 throughout Skin: no rashes, warm and dry Psychiatric: Orientation: alert and oriented x 3 Speech: normal rate/rhythm/volume of speech Results & Data ([facility]) Vital Signs (Past 12 Hours) Vital Signs Temp Pulse Resp BP BP Pulse Ox O2 Del Method 08/01/22 07:38 36.4 C L 64 20 122/79 95 Nasal Cannula 08/01/22 03:36 36.9 C 61 20 102/63 96 Nasal Cannula 07/31/22 23:20 36.9 C 67 18 94/57 L 94 Nasal Cannula O2 Flow Rate 08/01/22 07:38 3 08/01/22 03:36 3 07/31/22 23:20 2 Laboratory Results 07/31/22 06:32 bmp reviewed; K pending
--- NOTE | 2022-08-01 10:03 | Cardiology Progress Note ---
Date of Service August 01, 2022 Assessment & Plan (1) Pulmonary hypertension: (2) Idiopathic interstitial pneumonia: (3) Hypoxia: (4) Cor pulmonale: (5) Leg edema: (6) Respiratory acidosis: (7) Metabolic alkalosis: (8) Hypotension: (9) Volume overload: (10) Chronic respiratory failure with hypoxia: Plan The patient continues to diuresis. She is improving and her oxygen requirement is decreasing. Nephrology's note is appreciated. Her potassium is low today and Zaroxolyn is known to cause hyponatremia. The patient is on supplements but the addition of magnesium supplements may be beneficial. Admission and Anticipated Discharge Date Admission Date: July 23, 2022 Subjective The patient is up walking around in her room. Review of Systems Review of Systems: Review of Systems: See HPI for pertinent positives. All other 10 point review of systems are negative. Physical Exam Physical Exam: General: no acute distress and stated age Head: normocephalic, no masses, lesions, tenderness or abnormalities Eyes: conjunctiva are pink and non-injected, sclera clear Neck: supple, no adenopathy, no bruits, normal jugular venous pulse, no hepatojugular reflux Chest: normal shape and normal respiratory effort Lungs: clear to auscultation and percussion Cardiac Exam: - regular rate & rhythm, no murmurs gallops or rubs - normal S1, normal S2 Pulses: 2(+) throughout Abdomen: abdomen soft, non-tender, no abnormal masses and no hepatosplenomegaly Musculoskeletal: no gait disturbance, no joint inflammation, no deforming arthritis Extremities: Edema improved some excoriations of the lower extremities Neuro: grossly normal exam Results & Data ([facility]) Vital Signs (Past 12 Hours) Vital Signs Temp Pulse Resp BP BP Pulse Ox O2 Del Method 08/01/22 07:38 36.4 C L 64 20 122/79 95 Nasal Cannula 08/01/22 03:36 36.9 C 61 20 102/63 96 Nasal Cannula 07/31/22 23:20 36.9 C 67 18 94/57 L 94 Nasal Cannula O2 Flow Rate 08/01/22 07:38 3 08/01/22 03:36 3 07/31/22 23:20 2 Laboratory Results Laboratory Results - last 24 hr 07/31/22 07/31/22 07/31/22 11:26 16:23 20:59 Sodium Potassium Chloride Carbon Dioxide Anion Gap BUN Creatinine Est Cr Clr Drug Dosing Est GFR ( Amer) Est GFR (Non-Af Amer) BUN/Creatinine Ratio Glucose POC Glucose 192 H 235 H 324 H* Calcium 07/31/22 08/01/22 08/01/22 21:13 05:47 07:12 Sodium 128 L Potassium TNP Chloride 77 L Carbon Dioxide > 45 H* Anion Gap TNP BUN 36 H Creatinine 1.10 Est Cr Clr Drug Dosing 61.7 Est GFR ( Amer) 65.5 Est GFR (Non-Af Amer) 56.5 BUN/Creatinine Ratio 32.7 H Glucose 156 H POC Glucose 352 H* 188 H Calcium 9.5 08/01/22 08/01/22 07:13 09:25 Sodium Potassium TNP Pending Chloride Carbon Dioxide Anion Gap BUN Creatinine Est Cr Clr Drug Dosing Est GFR ( Amer) Est GFR (Non-Af Amer) BUN/Creatinine Ratio Glucose POC Glucose Calcium Medications Administered Current Inpatient Medications Acetaminophen (Acetaminophen 325 Mg Tab) 650 mg PO Q4H PRN PRN Reason: Pain or Fever Stop: 08/22/22 23:33 Albuterol (Albuterol Hfa 8 Gm Inhaler) 2 puffs INH Q6H PRN PRN Reason: Wheezing Stop: 08/22/22 23:33 Albuterol (Albut/Ipratrop 3mg/0.5mg Neb 3 Ml Vial) 3 ml NEB QIDR PRN; Protocol PRN Reason: Shortness Of Breath Or Wheezing Stop: 08/23/22 06:59 Last Admin: 07/31/22 15:00 Dose: 3 ml Benzonatate (Benzonatate 100 Mg Capsule) 100 mg PO TID PRN PRN Reason: Cough Stop: 08/22/22 23:33 Citalopram Hydrobromide (Citalopram 20 Mg Tab) 10 mg PO QAM [facility] Stop: 08/23/22 08:59 Last Admin: 08/01/22 09:10 Dose: 10 mg Clotrimazole (Clotrimazole 1% Cr 15 Gm Tube) 1 appln TOP BID [facility] Stop: 08/23/22 08:59 Last Admin: 08/01/22 09:11 Dose: 1 appln Cyanocobalamin (Cyanocobalamin (B-12) 500 Mcg Tablet) 1,000 mcg PO DAILY [facility] Stop: 08/23/22 08:59 Last Admin: 08/01/22 09:10 Dose: 1,000 mcg Dextrose (Dextrose 50% 50 Ml Syringe) 25 - 50 ml IV UD PRN; Protocol PRN Reason: Hypoglycemia Protocol Stop: 08/22/22 23:44 Enoxaparin Sodium (Enoxaparin Inj 40 Mg/0.4 Ml Syr) 40 mg SQ Q12 RAEANN Stop: 08/22/22 23:33 Last Admin: 08/01/22 09:12 Dose: 40 mg Furosemide (Furosemide 40 Mg/4 Ml Vial) 60 mg IV TID@0600,1200,1800 RAEANN Stop: 08/28/22 11:59 Last Admin: 08/01/22 05:52 Dose: 60 mg Glucagon (Glucagon For Inj 1 Mg Vial) 1 mg IM UD PRN; Protocol PRN Reason: Hypoglycemia Protocol Stop: 08/22/22 23:44 Glucose (Glucose 40% Gel 15 Gm Tube) 15 - 30 gm PO UD PRN; Protocol PRN Reason: Hypoglycemia Protocol Stop: 08/22/22 23:44 Glucose (Glucose 10 Tab/Tube) 4 - 8 tab PO UD PRN; Protocol PRN Reason: Hypoglycemia Protocol Stop: 08/22/22 23:44 Guaifenesin/Codeine Phosphate (Guaifenesin/Codeine 200mg/20mg 10ml Udc) 10 ml PO Q6H PRN PRN Reason: Cough Stop: 08/22/22 23:33 Acetazolamide 250 mg/ Dextrose 102.5 mls @ 100 mls/hr IV QPM RAEANN Stop: 08/01/22 15:59 Last Infusion: 07/31/22 23:41 Dose: Infused Insulin Aspart (Insulin Aspart Per Unit) 0 units SC AC [facility]; Protocol Stop: 08/23/22 07:29 Last Admin: 08/01/22 09:07 Dose: 8 units Insulin Aspart (Insulin Aspart Per Unit) 0 units SC HS [facility]; Protocol Stop: 08/26/22 20:59 Last Admin: 07/31/22 21:33 Dose: 6 units Lactobacillus Acidophilus (Advanced Probiotic 1250 Mg Capsule) 2 cap PO DAILY [facility] Stop: 08/23/22 08:59 Last Admin: 08/01/22 09:11 Dose: 2 cap Levothyroxine Sodium (Levothyroxine Sodium 88 Mcg Tablet) [facility] Stop: 08/23/22 06:29 Last Admin: 08/01/22 05:53 Dose: 88 mcg Magnesium Oxide (Magnesium Oxide 400 Mg Tab) 400 mg PO BID [facility] Stop: 08/25/22 20:59 Last Admin: 08/01/22 09:15 Dose: 400 mg Metolazone (Metolazone 2.5 Mg Tablet) 2.5 mg PO QAM [facility] Stop: 08/28/22 09:14 Last Admin: 08/01/22 09:11 Dose: 2.5 mg Metoprolol Succinate (Metoprolol Succ 50mg Ext Rel Tab) 100 mg PO QAM [facility] Stop: 08/23/22 08:59 Last Admin: 08/01/22 09:08 Dose: 100 mg Miscellaneous (Carbohydrates For Hypoglycemia ) 15 - 30 gm PO UD PRN PRN Reason: Hypoglycemia Treatment Stop: 08/22/22 23:44 Last Admin: 07/30/22 07:45 Dose: 15 gm Miscellaneous Information (Pharmacy Glycemic Mgmt Consult) 1 each N/A UD PRN; Protocol PRN Reason: Consult Stop: 08/23/22 06:02 Neomycin/Polymyxin/Bacitracin (Neomycin/Polymyx/Bacitr Oint 15 Gm Tube) 1 appln EXT BID [facility] Stop: 08/25/22 09:59 Last Admin: 08/01/22 09:09 Dose: 1 appln Nitroglycerin (Nitroglycerin Sl 0.4 Mg/Tab Tab) 0.4 mg SL UD PRN PRN Reason: Chest Pain Stop: 08/22/22 23:33 Polyethylene Glycol (Polyethylene (Miralax) 17 Gm Pack) 17 gm PO DAILY PRN PRN Reason: Constipation Stop: 08/22/22 23:33 Potassium Chloride (Potassium Chloride Crtab 20 Meq Tabcr) 40 meq PO BID [facility] Stop: 08/30/22 20:59 Last Admin: 08/01/22 09:08 Dose: 40 meq Prednisone (Prednisone 10 Mg Tablet) 10 mg PO DAILY [facility] Stop: 08/04/22 08:59 Last Admin: 08/01/22 09:09 Dose: 10 mg Rosuvastatin Calcium (Rosuvastatin Calcium 5 Mg Tab) 5 mg PO SuWe@0900 [facility] Stop: 08/23/22 08:59 Last Admin: 07/31/22 08:12 Dose: 5 mg
--- NOTE | 2022-08-01 10:15 | Cardiology Progress Note ---
Date of Service August 01, 2022 Assessment & Plan (1) Pulmonary hypertension: (2) Idiopathic interstitial pneumonia: (3) Hypoxia: (4) Cor pulmonale: (5) Leg edema: (6) Respiratory acidosis: (7) Metabolic alkalosis: (8) Hypotension: (9) Volume overload: (10) Chronic respiratory failure with hypoxia: Plan The patient is rapidly approaching her dry weight. I think we can back down on her diuretics and I discontinued her Zaroxolyn. She has a metabolic alkalosis so I think the Diamox should be continued through today. Also the IV loop diuretic should be continued. Admission and Anticipated Discharge Date Admission Date: July 23, 2022 Subjective The patient is up and walking in her room. Review of Systems Review of Systems: Review of Systems: See HPI for pertinent positives. All other 10 point review of systems are negative. Physical Exam Physical Exam: General: no acute distress and stated age Head: normocephalic, no masses, lesions, tenderness or abnormalities Eyes: conjunctiva are pink and non-injected, sclera clear Neck: supple, no adenopathy, no bruits, normal jugular venous pulse, no hepatojugular reflux Chest: normal shape and normal respiratory effort Lungs: clear to auscultation and percussion Cardiac Exam: - regular rate & rhythm, no murmurs gallops or rubs - normal S1, normal S2 Pulses: 2(+) throughout Abdomen: abdomen soft, non-tender, no abnormal masses and no hepatosplenomegaly Musculoskeletal: no gait disturbance, no joint inflammation, no deforming arthritis Extremities: Edema improved some excoriations of the lower extremities Neuro: grossly normal exam Results & Data ([facility]) Vital Signs (Past 12 Hours) Vital Signs Temp Pulse Resp BP BP Pulse Ox O2 Del Method 08/01/22 07:38 36.4 C L 64 20 122/79 95 Nasal Cannula 08/01/22 03:36 36.9 C 61 20 102/63 96 Nasal Cannula 07/31/22 23:20 36.9 C 67 18 94/57 L 94 Nasal Cannula O2 Flow Rate 08/01/22 07:38 3 08/01/22 03:36 3 07/31/22 23:20 2 Laboratory Results Laboratory Results - last 24 hr 07/31/22 07/31/22 07/31/22 11:26 16:23 20:59 Sodium Potassium Chloride Carbon Dioxide Anion Gap BUN Creatinine Est Cr Clr Drug Dosing Est GFR ( Amer) Est GFR (Non-Af Amer) BUN/Creatinine Ratio Glucose POC Glucose 192 H 235 H 324 H* Calcium 07/31/22 08/01/22 08/01/22 21:13 05:47 07:12 Sodium 128 L Potassium TNP Chloride 77 L Carbon Dioxide > 45 H* Anion Gap TNP BUN 36 H Creatinine 1.10 Est Cr Clr Drug Dosing 61.7 Est GFR ( Amer) 65.5 Est GFR (Non-Af Amer) 56.5 BUN/Creatinine Ratio 32.7 H Glucose 156 H POC Glucose 352 H* 188 H Calcium 9.5 08/01/22 08/01/22 07:13 09:25 Sodium Potassium TNP Pending Chloride Carbon Dioxide Anion Gap BUN Creatinine Est Cr Clr Drug Dosing Est GFR ( Amer) Est GFR (Non-Af Amer) BUN/Creatinine Ratio Glucose POC Glucose Calcium Medications Administered Current Inpatient Medications Acetaminophen (Acetaminophen 325 Mg Tab) 650 mg PO Q4H PRN PRN Reason: Pain or Fever Stop: 08/22/22 23:33 Albuterol (Albuterol Hfa 8 Gm Inhaler) 2 puffs INH Q6H PRN PRN Reason: Wheezing Stop: 08/22/22 23:33 Albuterol (Albut/Ipratrop 3mg/0.5mg Neb 3 Ml Vial) 3 ml NEB QIDR PRN; Protocol PRN Reason: Shortness Of Breath Or Wheezing Stop: 08/23/22 06:59 Last Admin: 07/31/22 15:00 Dose: 3 ml Benzonatate (Benzonatate 100 Mg Capsule) 100 mg PO TID PRN PRN Reason: Cough Stop: 08/22/22 23:33 Citalopram Hydrobromide (Citalopram 20 Mg Tab) 10 mg PO QAM [facility] Stop: 08/23/22 08:59 Last Admin: 08/01/22 09:10 Dose: 10 mg Clotrimazole (Clotrimazole 1% Cr 15 Gm Tube) 1 appln TOP BID [facility] Stop: 08/23/22 08:59 Last Admin: 08/01/22 09:11 Dose: 1 appln Cyanocobalamin (Cyanocobalamin (B-12) 500 Mcg Tablet) 1,000 mcg PO DAILY [facility] Stop: 08/23/22 08:59 Last Admin: 08/01/22 09:10 Dose: 1,000 mcg Dextrose (Dextrose 50% 50 Ml Syringe) 25 - 50 ml IV UD PRN; Protocol PRN Reason: Hypoglycemia Protocol Stop: 08/22/22 23:44 Enoxaparin Sodium (Enoxaparin Inj 40 Mg/0.4 Ml Syr) 40 mg SQ Q12 RAEANN Stop: 08/22/22 23:33 Last Admin: 08/01/22 09:12 Dose: 40 mg Furosemide (Furosemide 40 Mg/4 Ml Vial) 60 mg IV TID@0600,1200,1800 RAEANN Stop: 08/28/22 11:59 Last Admin: 08/01/22 05:52 Dose: 60 mg Glucagon (Glucagon For Inj 1 Mg Vial) 1 mg IM UD PRN; Protocol PRN Reason: Hypoglycemia Protocol Stop: 08/22/22 23:44 Glucose (Glucose 40% Gel 15 Gm Tube) 15 - 30 gm PO UD PRN; Protocol PRN Reason: Hypoglycemia Protocol Stop: 08/22/22 23:44 Glucose (Glucose 10 Tab/Tube) 4 - 8 tab PO UD PRN; Protocol PRN Reason: Hypoglycemia Protocol Stop: 08/22/22 23:44 Guaifenesin/Codeine Phosphate (Guaifenesin/Codeine 200mg/20mg 10ml Udc) 10 ml PO Q6H PRN PRN Reason: Cough Stop: 08/22/22 23:33 Acetazolamide 250 mg/ Dextrose 102.5 mls @ 100 mls/hr IV QPM RAEANN Stop: 08/01/22 15:59 Last Infusion: 07/31/22 23:41 Dose: Infused Insulin Aspart (Insulin Aspart Per Unit) 0 units SC AC [facility]; Protocol Stop: 08/23/22 07:29 Last Admin: 08/01/22 09:07 Dose: 8 units Insulin Aspart (Insulin Aspart Per Unit) 0 units SC HS [facility]; Protocol Stop: 08/26/22 20:59 Last Admin: 07/31/22 21:33 Dose: 6 units Lactobacillus Acidophilus (Advanced Probiotic 1250 Mg Capsule) 2 cap PO DAILY [facility] Stop: 08/23/22 08:59 Last Admin: 08/01/22 09:11 Dose: 2 cap Levothyroxine Sodium (Levothyroxine Sodium 88 Mcg Tablet) 88 mcg PO DAILYBB [facility] Stop: 08/23/22 06:29 Last Admin: 08/01/22 05:53 Dose: 88 mcg Magnesium Oxide (Magnesium Oxide 400 Mg Tab) 400 mg PO BID [facility] Stop: 08/25/22 20:59 Last Admin: 08/01/22 09:15 Dose: 400 mg Metoprolol Succinate (Metoprolol Succ 50mg Ext Rel Tab) 100 mg PO QAM [facility] Stop: 08/23/22 08:59 Last Admin: 08/01/22 09:08 Dose: 100 mg Miscellaneous (Carbohydrates For Hypoglycemia ) 15 - 30 gm PO UD PRN PRN Reason: Hypoglycemia Treatment Stop: 08/22/22 23:44 Last Admin: 07/30/22 07:45 Dose: 15 gm Miscellaneous Information (Pharmacy Glycemic Mgmt Consult) 1 each N/A UD PRN; Protocol PRN Reason: Consult Stop: 08/23/22 06:02 Neomycin/Polymyxin/Bacitracin (Neomycin/Polymyx/Bacitr Oint 15 Gm Tube) 1 appln EXT BID [facility] Stop: 08/25/22 09:59 Last Admin: 08/01/22 09:09 Dose: 1 appln Nitroglycerin (Nitroglycerin Sl 0.4 Mg/Tab Tab) 0.4 mg SL UD PRN PRN Reason: Chest Pain Stop: 08/22/22 23:33 Polyethylene Glycol (Polyethylene (Miralax) 17 Gm Pack) 17 gm PO DAILY PRN PRN Reason: Constipation Stop: 08/22/22 23:33 Potassium Chloride (Potassium Chloride Crtab 20 Meq Tabcr) 40 meq PO BID [facility] Stop: 08/30/22 20:59 Last Admin: 08/01/22 09:08 Dose: 40 meq Prednisone (Prednisone 10 Mg Tablet) 10 mg PO DAILY [facility] Stop: 08/04/22 08:59 Last Admin: 08/01/22 09:09 Dose: 10 mg Rosuvastatin Calcium (Rosuvastatin Calcium 5 Mg Tab) 5 mg PO SuWe@0900 [facility] Stop: 08/23/22 08:59 Last Admin: 07/31/22 08:12 Dose: 5 mg
[2022-08-01] MEDS ORDERED: acetaZOLAMIDE 250 MG TAB PO ONE (10:45)
--- NOTE | 2022-08-01 12:04 | Pharmacy Report ---
Pharmacy Glycemic Short Note 2 - Date of Service August 01, 2022 - Glycemic Short BSG Results (Last 24 hours): 07/31/22 07/31/22 07/31/22 16:23 20:59 21:13 Glucose POC Glucose 235 H 324 H* 352 H* 08/01/22 08/01/22 08/01/22 05:47 07:12 11:45 Glucose 156 H POC Glucose 188 H 258 H OUTPATIENT ANTIDIABETIC REGIMEN: * Metformin 2 gm PO daily * Glipizide 10 mg PO daily * HbA1c: 12.3% (07/24/22), could be affected by outpatient steroid use ASSESSMENT: 08/01: * BSGs [phone]/dL the last 24h. 1630 BSG yesterday was not corrected. Pt received 8 units of basal and 18 units of bolus insulin yesterday. * Continues on prednisone 10mg PO daily and tolerating diet. * NPH 8 units today, Novolog parameters tightened with meals. 07/30: * Patient received total of 53 units of insulin yesterday, of which 15 units were NPH * Fasting low this AM 56 mg/dL - will decrease NPH dose in half for this morning as unclear what is contributing to lower fasting - no novolog given at HS time 07/29: * Ale never require pressor/inotropic support upon transfer to the ICU. Stressors are stable at this point and will be downgraded from ICU. * Remains on Prednisone 20 mg PO daily. Continue with NPH to cover for steroid- induced hyperglycemia. Of note, steroids are set to discontinue after tomorrow's dose (07/30). Unsure of further taper. * RN did not check a POC BSG this AM and utilized the serum BSG of 87 mg/dL from ~0500 for unknown reasons. Do not believe that this BSG was truly metals sales representative of what the patient truly was. No AM Novolog was given and not documented whether the patient ate breakfast or not. * Lunchtime BSG was 251 mg/dL. Do not feel comfortable making any changes to insulin regimen at today given uncertainty of AM and lunchtime BSGs. 07/28: * Stressors stable * AM fasting BSG still below goal range but not hypoglycemic and is trending up from yesterday - no change to NPH * Post-prandial BSG's elevated. Will tighten Novolog parameters AC but leave looser HS 07/27: * This morning, the patient experienced another episode of hypoglycemia ( BSG 67 mg/dL). This may be due to overcorrection of previous nighttime BSG (267 mg/dL). * HS correction factor will be loosened to prevent opportunity for overcorrection of nightime BSG and subsequent hypoglycemic episodes. * Mealtime carb coverage will be tightened in observance of elevated postprandial BSG's * Will continue NPH 15 units daily alongside of prednisone 20mg daily to match pharmacokinetic peak. Will continue to avoid Lantus use due to low fasting BSG's. PLAN FOR INPATIENT GLYCEMIC CONTROL: * Hold outpatient oral diabetes medications * Basal insulin * NPH 8 SC daily, while on prednisone 10 mg daily * Bolus insulin * NovoLog per scale ACHS or Q6hrs while NPO * Goal Range: Low 110 mg/dL - High 140 mg/dL * Correction Factor: 15 mg/dL/unit with breakfast, lunch and dinner; 30 mg/dL/unit at HS * Carb ratio: 5 g CHO/unit with breakfast, lunch and dinner; -- g CHO/unit at HS
[2022-08-01] MEDS: POTASSIUM CHLORIDE / WTR 10 MEQ/100 ML PLCT IV SCH ×2 (12:47→13:37)
--- NOTE | 2022-08-01 15:32 | Hospitalist Progress Note ---
Date of Service August 01, 2022 Assessment & Plan (1) Hypoxia: Plan: Patient is a 57 yr female who presents with worsening shortness of breath, [id number] respiratory failure. [id number] respiratory failure with Hypoxia Chronic oxygen dependency--on 3-4 L at baseline Chronic interstitial lung disease--Possible Flare H/O COVID Pulmonary artery hypertension Cor pulmonale Chronic steroid dependence Respiratory failure likely multifactorial: Interstitial lung disease, PAH, Right-sided heart failure Metabolic alkalosis --CT Chest:Cardiomegaly without acute intrathoracic abnormality. Chronic interstitial lung disease with subpleural predominant cysts/honeycombing, subpleural reticulation with groundglass densities and bronchiectasis, right greater than left. The subpleural cystic changes/honeycombing has progressively worsened compared to the 05/06/2021 exam. Mildly improved mediastinal and hilar lymphadenopathy, likely related to the chronic interstitial lung disease. Cardiomegaly with evidence of pulmonary arterial hypertension. Unchanged fusiform dilation of the ascending thoracic aorta, 4.2 cm. --ECHO: EF 60 to 65%. Normal LV chamber size and wall thickness. No segmental left ventricle wall motion abnormality. Flattened septum is consistent with RV pressure/volume overload. D-shaped LV chamber. Grade 1 diastolic dysfunction. Right ventricle is severely dilated. Right ventricular systolic function is severely reduced. Mild aortic regurgitation. Severe tricuspid regurgitation. Severe pulmonary artery hypertension. -- Procalcitonin 0.05 --Blood cultures negative --Urine for Legionella Negative --Nasal MRSA Negative --Continue IV Solu-Medrol>> transition to prednisone taper course --Continue nebs, empiric antibiotics --Continue IV Lasix Monitor I's and O's, daily weight, electrolytes Appreciate Pulmonology/Cardiology/Nephrology/Critical Care Input Needs sleep study as outpatient Wean supplemental oxygen as able Continue Diamox for metabolic alkalosis Valsartan held Metolazone discontinued Continue Prednisone to 10 mg daily Plan to taper off of steroids in 4 to 6 weeks Continue diuresis Mild troponin elevation Likely demand ischemia secondary to hypoxia Chronic hyponatremia Sodium 128 today Monitor sodium levels Vitamin D deficiency Continue vitamin D supplements Abnormal urinalysis Ruled out UTI Urine culture Negative cefepime discontinued DM II HbA1C 12.3 Continue insulin per protocol Monitor BGs Glycemic pharmacy consulted Hypocalcemia: Likely due to vitamin D deficiency Received IV calcium gluconate Monitor Hypokalemia Hypomagnesemia Replete as needed Morbid obesity: BMI 41 Needs counseling Possible sleep apnea Patient refused sleep study as outpatient Depression: Continue citalopram Vitamin B12 deficiency: Continue vitamin B12 supplements. Hypothyroidism: Continue Levothyroxine Hypertension: Continue metoprolol with holding parameters valsartan held Hyperlipidemia: On statin. DVT Px: Lovenox SQ CODE STATUS Full code DISPOSITION: PT/OT prior to discharge Admission and Anticipated Discharge Date Admission Date: July 23, 2022 Subjective Patient is seen and examined at bedside States feeling better Saturating well on 2 L supplemental oxygen Discussed with cardiology today Leg swelling, dyspnea continues to improve Denies any chest pain, dyspnea, dizziness, nausea, abdominal Review of Systems Review of Systems: All systems reviewed & are unremarkable except as noted in Subjective Physical Exam Physical Exam: Physical Exam: Vitals signs as noted above General Appearance:Morbidly obese, no apparent distress Head: normocephalic, Atraumatic Eyes: normal inspection, EOMI Neck: supple, Trachea midline Respiratory/Chest: Decreased breath sounds, CTA, No accessory muscle use Cardiovascular: S1, S2, No murmur Abdomen/GI:Soft, Non tender, Bowel sounds present Extremities/Musculoskeletal:normal inspection, 2+ B/L LE edema Neurologic/Psych:AAOX3, grossly no focal neurological deficits Skin: normal color, warm Results & Data Results & Data ([facility]) Vital Signs (Past 12 Hours) Vital Signs Temp Pulse Pulse Resp BP BP Pulse Ox 08/01/22 15:07 74 08/01/22 14:31 36.5 C 72 20 110/81 93 08/01/22 10:48 08/01/22 10:35 36.4 C L 70 17 122/79 93 08/01/22 10:18 68 08/01/22 07:38 36.4 C L 64 20 122/79 95 08/01/22 03:36 36.9 C 61 20 102/63 96 O2 Del Method O2 Flow Rate 08/01/22 15:07 08/01/22 14:31 Nasal Cannula 2 08/01/22 10:48 Nasal Cannula 3 08/01/22 10:35 Nasal Cannula 2 08/01/22 10:18 08/01/22 07:38 Nasal Cannula 3 08/01/22 03:36 Nasal Cannula 3 Laboratory Results [facility] 08/01/22 08/01/22 08/01/22 05:47 07:13 09:25 Sodium 128 L Potassium TNP TNP 3.2 L Chloride 77 L Carbon Dioxide > 45 H* BUN 36 H Creatinine 1.10 Glucose 156 H Calcium 9.5
[2022-08-01] MEDS: ALBUT/IPRATROP 3MG/0.5MG NEB 3 ML VIAL NEB PRN (17:50)
[2022-08-01] MEDS: acetaZOLAMIDE 500 MG CAPCR PO SCH (19:46)
[2022-08-01] MEDS: ACETAMINOPHEN 325 MG TAB PO PRN (23:48)
[2022-08-02] MEDS: INSULIN ASPART PER UNIT SC SCH ×6 (00:20→20:56)
[2022-08-02] MEDS: LEVOTHYROXINE SODIUM 88 MCG TABLET PO SCH (06:40)
[2022-08-02] MEDS: FUROSEMIDE 40 MG/4 ML VIAL IV SCH (06:40)
[2022-08-02] MEDS ORDERED: NovoLIN-N (NPH) PER UNIT CHARGE SQ ONE (08:00)
[2022-08-02] MEDS: acetaZOLAMIDE 500 MG CAPCR PO SCH ×2 (08:16→20:44)
[2022-08-02] MEDS: POTASSIUM CHLORIDE CRTAB 20 MEQ TABCR PO SCH ×2 (08:17→20:43)
[2022-08-02] MEDS: CYANOCOBALAMIN (B-12) 500 MCG TABLET PO SCH (08:17)
[2022-08-02] MEDS: CITALOPRAM 20 MG TAB PO SCH (08:17)
[2022-08-02] MEDS: predniSONE 10 MG TABLET PO SCH (08:18)
[2022-08-02] MEDS: ADVANCED PROBIOTIC 1250 MG CAPSULE PO SCH (08:18)
[2022-08-02] MEDS: ENOXAPARIN INJ 40 MG/0.4 ML SYR SQ SCH ×2 (08:18→20:44)
[2022-08-02] MEDS: METOPROLOL SUCC 50MG EXT REL TAB PO SCH (08:18)
[2022-08-02] MEDS: NEOMYCIN/POLYMYX/BACITR OINT 15 GM TUBE EXT SCH ×2 (08:19→21:18)
[2022-08-02] MEDS: CLOTRIMAZOLE 1% CR 15 GM TUBE TOP SCH ×2 (08:20→20:44)
[2022-08-02] MEDS: MAGNESIUM OXIDE 400 MG TAB PO SCH ×2 (08:33→20:44)
--- NOTE | 2022-08-02 10:17 | Cardiology Progress Note ---
Date of Service August 02, 2022 Assessment & Plan (1) Pulmonary hypertension: (2) Idiopathic interstitial pneumonia: (3) Hypoxia: (4) Cor pulmonale: (5) Leg edema: (6) Respiratory acidosis: (7) Metabolic alkalosis: (8) Hypotension: (9) Volume overload: (10) Chronic respiratory failure with hypoxia: Plan The patient's labs are still pending, but I believe we can start to back down again on her diuretics. I have switched her over to p.o. Lasix 80 mg twice daily's for now until her labs are back this morning as they are still pending. Admission and Anticipated Discharge Date Admission Date: July 23, 2022 Subjective The patient had an uneventful night. Review of Systems Review of Systems: Review of Systems: See HPI for pertinent positives. All other 10 point review of systems are negative. Physical Exam Physical Exam: General: no acute distress and stated age Head: normocephalic, no masses, lesions, tenderness or abnormalities Eyes: conjunctiva are pink and non-injected, sclera clear Neck: supple, no adenopathy, no bruits, normal jugular venous pulse, no hepatojugular reflux Chest: normal shape and normal respiratory effort Lungs: clear to auscultation and percussion Cardiac Exam: - regular rate & rhythm, no murmurs gallops or rubs - normal S1, normal S2 Pulses: 2(+) throughout Abdomen: abdomen soft, non-tender, no abnormal masses and no hepatosplenomegaly Musculoskeletal: no gait disturbance, no joint inflammation, no deforming arthritis Extremities: Edema improved some excoriations of the lower extremities Neuro: grossly normal exam Results & Data ([facility]) Vital Signs (Past 12 Hours) Vital Signs Temp Pulse Resp BP Pulse Ox O2 Del Method O2 Flow Rate 08/02/22 07:42 Nasal Cannula 5 08/02/22 07:40 36.4 C L 65 20 105/76 93 Room Air, Nasal Cannula 3 08/02/22 02:57 36.8 C 61 18 103/64 98 Nasal Cannula 3 08/01/22 23:51 36.5 C 64 18 104/54 L 94 Nasal Cannula 3 Laboratory Results Laboratory Results - last 24 hr 08/01/22 08/01/22 08/01/22 09:25 11:45 16:56 Sodium Potassium 3.2 L Chloride Carbon Dioxide Anion Gap BUN Creatinine Est Cr Clr Drug Dosing Est GFR ( Amer) Est GFR (Non-Af Amer) BUN/Creatinine Ratio Glucose POC Glucose 258 H 124 H Calcium Magnesium 08/01/22 08/02/22 08/02/22 20:34 07:33 07:35 Sodium Pending Potassium Pending Chloride Pending Carbon Dioxide Pending Anion Gap Pending BUN Pending Creatinine Pending Est Cr Clr Drug Dosing Pending Est GFR ( Amer) Pending Est GFR (Non-Af Amer) Pending BUN/Creatinine Ratio Pending Glucose Pending POC Glucose 120 H 132 H Calcium Pending Magnesium Pending Medications Administered Current Inpatient Medications Acetaminophen (Acetaminophen 325 Mg Tab) 650 mg PO Q4H PRN PRN Reason: Pain or Fever Stop: 08/22/22 23:33 Last Admin: 08/01/22 23:48 Dose: 650 mg Acetazolamide (Acetazolamide 500 Mg Capcr) 500 mg PO BID [facility] Stop: 08/31/22 20:59 Last Admin: 08/02/22 08:16 Dose: 500 mg Albuterol (Albuterol Hfa 8 Gm Inhaler) 2 puffs INH Q6H PRN PRN Reason: Wheezing Stop: 08/22/22 23:33 Albuterol (Albut/Ipratrop 3mg/0.5mg Neb 3 Ml Vial) 3 ml NEB QIDR PRN; Protocol PRN Reason: Shortness Of Breath Or Wheezing Stop: 08/23/22 06:59 Last Admin: 08/01/22 17:50 Dose: 3 ml Benzonatate (Benzonatate 100 Mg Capsule) 100 mg PO TID PRN PRN Reason: Cough Stop: 08/22/22 23:33 Citalopram Hydrobromide (Citalopram 20 Mg Tab) 10 mg PO QAM [facility] Stop: 08/23/22 08:59 Last Admin: 08/02/22 08:17 Dose: 10 mg Clotrimazole (Clotrimazole 1% Cr 15 Gm Tube) 1 appln TOP BID [facility] Stop: 08/23/22 08:59 Last Admin: 08/02/22 08:20 Dose: Not Given Cyanocobalamin (Cyanocobalamin (B-12) 500 Mcg Tablet) 1,000 mcg PO DAILY [facility] Stop: 08/23/22 08:59 Last Admin: 08/02/22 08:17 Dose: 1,000 mcg Dextrose (Dextrose 50% 50 Ml Syringe) 25 - 50 ml IV UD PRN; Protocol PRN Reason: Hypoglycemia Protocol Stop: 08/22/22 23:44 Enoxaparin Sodium (Enoxaparin Inj 40 Mg/0.4 Ml Syr) 40 mg SQ Q12 [facility] Stop: 08/22/22 23:33 Last Admin: 08/02/22 08:18 Dose: 40 mg Furosemide (Furosemide 80 Mg Tab) 80 mg PO [id number] [facility] Stop: 09/01/22 16:59 Glucagon (Glucagon For Inj 1 Mg Vial) 1 mg IM UD PRN; Protocol PRN Reason: Hypoglycemia Protocol Stop: 08/22/22 23:44 Glucose (Glucose 40% Gel 15 Gm Tube) 15 - 30 gm PO UD PRN; Protocol PRN Reason: Hypoglycemia Protocol Stop: 08/22/22 23:44 Glucose (Glucose 10 Tab/Tube) 4 - 8 tab PO UD PRN; Protocol PRN Reason: Hypoglycemia Protocol Stop: 08/22/22 23:44 Guaifenesin/Codeine Phosphate (Guaifenesin/Codeine 200mg/20mg 10ml Udc) 10 ml PO Q6H PRN PRN Reason: Cough Stop: 08/22/22 23:33 Insulin Aspart (Insulin Aspart Per Unit) 0 units SC AC [facility]; Protocol Stop: 08/23/22 07:29 Last Admin: 08/02/22 08:41 Dose: 10 units Insulin Aspart (Insulin Aspart Per Unit) 0 units SC HS [facility]; Protocol Stop: 08/26/22 20:59 Last Admin: 08/02/22 00:20 Dose: Not Given Lactobacillus Acidophilus (Advanced Probiotic 1250 Mg Capsule) 2 cap PO DAILY [facility] Stop: 08/23/22 08:59 Last Admin: 08/02/22 08:18 Dose: 2 cap Levothyroxine Sodium (Levothyroxine Sodium 88 Mcg Tablet) 88 mcg PO DAILYBB [facility] Stop: 08/23/22 06:29 Last Admin: 08/02/22 06:40 Dose: 88 mcg Magnesium Oxide (Magnesium Oxide 400 Mg Tab) 400 mg PO BID [facility] Stop: 08/25/22 20:59 Last Admin: 08/02/22 08:33 Dose: 400 mg Metoprolol Succinate (Metoprolol Succ 50mg Ext Rel Tab) 100 mg PO QAM [facility] Stop: 08/23/22 08:59 Last Admin: 08/02/22 08:18 Dose: 100 mg Miscellaneous (Carbohydrates For Hypoglycemia ) 15 - 30 gm PO UD PRN PRN Reason: Hypoglycemia Treatment Stop: 08/22/22 23:44 Last Admin: 07/30/22 07:45 Dose: 15 gm Miscellaneous Information (Pharmacy Glycemic Mgmt Consult) 1 each N/A UD PRN; Protocol PRN Reason: Consult Stop: 08/23/22 06:02 Neomycin/Polymyxin/Bacitracin (Neomycin/Polymyx/Bacitr Oint 15 Gm Tube) 1 appln EXT BID [facility] Stop: 08/25/22 09:59 Last Admin: 08/02/22 08:19 Dose: 1 appln Nitroglycerin (Nitroglycerin Sl 0.4 Mg/Tab Tab) 0.4 mg SL UD PRN PRN Reason: Chest Pain Stop: 08/22/22 23:33 Polyethylene Glycol (Polyethylene (Miralax) 17 Gm Pack) 17 gm PO DAILY PRN PRN Reason: Constipation Stop: 08/22/22 23:33 Potassium Chloride (Potassium Chloride Crtab 20 Meq Tabcr) 40 meq PO BID [facility] Stop: 08/30/22 20:59 Last Admin: 08/02/22 08:17 Dose: 40 meq Prednisone (Prednisone 10 Mg Tablet) 10 mg PO DAILY [facility] Stop: 08/04/22 08:59 Last Admin: 08/02/22 08:18 Dose: 10 mg Rosuvastatin Calcium (Rosuvastatin Calcium 5 Mg Tab) 5 mg PO SuWe@0900 [facility] Stop: 08/23/22 08:59 Last Admin: 07/31/22 08:12 Dose: 5 mg
[2022-08-02 10:24] LABS: BUN Creatinine Ratio 35.1 (10-20); Blood Urea Nitrogen 39 mg/dl (6-23); Calcium 9.5 mg/dl (8.5-10.1); Carbon Dioxide > 45 mmol/L (21-32); Chloride 76 mmol/L (98-107); Est GFR (African American) 64.7 ml/min; Est GFR (Non-African American) 55.9 ml/min; Glucose 142 mg/dl (70-99(Fasting)); Magnesium 2.1 mg/dl (1.7-2.4); Potassium 3.5 mmol/L (3.5-5.1); Sodium 129 mmol/L (136-145)
--- NOTE | 2022-08-02 13:13 | Communication Note ---
Date of Service: August 02, 2022 Patient gave consent that its ok to test her for HIV as patient's RN got accidentally tusck with needle while taking care of her.
--- NOTE | 2022-08-02 15:38 | Hospitalist Progress Note ---
Date of Service August 02, 2022 Assessment & Plan (1) Hypoxia: Plan: Patient is a 57 yr female who presents with worsening shortness of breath, [id number] respiratory failure. Lhkxg-[id number] respiratory failure with Hypoxia Chronic oxygen dependency--on 3-4 L at baseline Chronic interstitial lung disease--Possible Flare H/O COVID Pulmonary artery hypertension Cor pulmonale Chronic steroid dependence Respiratory failure likely multifactorial: Interstitial lung disease, PAH, Right-sided heart failure Metabolic alkalosis --CT Chest:Cardiomegaly without acute intrathoracic abnormality. Chronic interstitial lung disease with subpleural predominant cysts/honeycombing, subpleural reticulation with groundglass densities and bronchiectasis, right greater than left. The subpleural cystic changes/honeycombing has progressively worsened compared to the 05/06/2021 exam. Mildly improved mediastinal and hilar lymphadenopathy, likely related to the chronic interstitial lung disease. Cardiomegaly with evidence of pulmonary arterial hypertension. Unchanged fusiform dilation of the ascending thoracic aorta, 4.2 cm. --ECHO: EF 60 to 65%. Normal LV chamber size and wall thickness. No segmental left ventricle wall motion abnormality. Flattened septum is consistent with RV pressure/volume overload. D-shaped LV chamber. Grade 1 diastolic dysfunction. Right ventricle is severely dilated. Right ventricular systolic function is severely reduced. Mild aortic regurgitation. Severe tricuspid regurgitation. Severe pulmonary artery hypertension. -- Procalcitonin 0.05 --Blood cultures negative --Urine for Legionella Negative --Nasal MRSA Negative --Continue IV Solu-Medrol>> transition to prednisone taper course --Continue nebs PRN --Received IV Lasix Monitor I's and O's, daily weight, electrolytes Appreciate Pulmonology/Cardiology/Nephrology/Critical Care Input Needs sleep study as outpatient Wean supplemental oxygen as able Continue Diamox Did not require pressors while in ICU Valsartan held Metolazone added Prednisone decreased to 10 mg daily Plan to taper off of steroids in 4 to 6 weeks Continue diuretics as per nephrology, cardiology Monitor volume status Mild troponin elevation Likely demand ischemia secondary to hypoxia Chronic hyponatremia Sodium 129 today Monitor sodium levels Vitamin D deficiency Continue vitamin D supplements Abnormal urinalysis Ruled out UTI Urine culture Negative cefepime discontinued DM II HbA1C 12.3 Continue insulin per protocol Monitor BGs Glycemic pharmacy consulted Hypocalcemia: Likely due to vitamin D deficiency Received IV calcium gluconate Monitor Hypokalemia Hypomagnesemia Replete as needed Morbid obesity: BMI 41 Needs counseling Possible sleep apnea Patient refused sleep study as outpatient Depression: Continue citalopram Vitamin B12 deficiency: Continue vitamin B12 supplements. Hypothyroidism: Continue Levothyroxine Hypertension: Continue metoprolol with holding parameters valsartan held Hyperlipidemia: On statin. DVT Px: Lovenox SQ CODE STATUS Full code DISPOSITION: PT/OT prior to discharge Admission and Anticipated Discharge Date Admission Date: July 23, 2022 Subjective Patient is seen and examined at bedside Doing well today No new complaints Discussed with nephrology today Saturating well on supplemental oxygenation Leg swelling improving Denies any chest pain, dyspnea, dizziness, nausea, abdominal Eager to get discharged Review of Systems Review of Systems: All systems reviewed & are unremarkable except as noted in Subjective Physical Exam Physical Exam: Physical Exam: Vitals signs as noted above General Appearance:Morbidly obese, no apparent distress Head: normocephalic, Atraumatic Eyes: normal inspection, EOMI Neck: supple, Trachea midline Respiratory/Chest: Decreased breath sounds, CTA, No accessory muscle use Cardiovascular: S1, S2, No murmur Abdomen/GI:Soft, Non tender, Bowel sounds present Extremities/Musculoskeletal:normal inspection, 2+ B/L LE edema Neurologic/Psych:AAOX3, grossly no focal neurological deficits Skin: normal color, warm Results & Data Results & Data ([facility]) Vital Signs (Past 12 Hours) Vital Signs Temp Pulse Pulse Resp BP Pulse Ox Pulse Ox 08/02/22 08:00 59 L 08/02/22 08:00 98 08/02/22 12:19 36.5 C 67 17 108/69 94 08/02/22 07:42 08/02/22 07:40 36.4 C L 65 20 105/76 93 O2 Del Method O2 Flow Rate 08/02/22 08:00 08/02/22 08:00 08/02/22 12:19 Nasal Cannula 3 08/02/22 07:42 Nasal Cannula 5 08/02/22 07:40 Room Air, Nasal Cannula 3 Laboratory Results [facility] 08/02/22 07:35 Sodium 129 L Potassium 3.5 Chloride 76 L Carbon Dioxide > 45 H* BUN 39 H Creatinine 1.11 Glucose 142 H Calcium 9.5
--- NOTE | 2022-08-02 17:11 | Nephrology Progress Note ---
Date of Service August 02, 2022 Assessment & Plan (1) Acute and chronic respiratory failure: Plan: diuresis limited by acid base imbalance > lasix lowered today by cardiology d/t this > increased diamox to 1 gm bid (can go up to 4 gm daily off label) -cont lowered lasix dose > from 60 mg IV tid to 80 mg iv bid on 08/02 -metolazone on hold -continue current K dosing (2) Metabolic alkalosis with respiratory acidosis: Plan: chronic contraction alkalosis with diuresis in setting of chronic respiratory acidosis Admission and Anticipated Discharge Date Admission Date: July 23, 2022 Subjective diuresis continues; less LE edema; pt pleased at ability to walk, breathe. edema best it's been in months Review of Systems Review of Systems: All systems reviewed & are unremarkable except as noted in Subjective Physical Exam Constitutional: well developed, well nourished and cooperative Eyes: EOM intact bilaterally ENMT: Ears: no external ear abnormality Nose: no external nose abnormality Mouth: + dry oral mucous membranes Neck: no nuchal rigidity Respiratory: normal respiratory effort Auscultation: + diminished lung sounds and + crackles (diffuse fine) Cardiovascular: Rate/Rhythm: regular rate and regular rhythm Extremities: + edema (decreasing) Gastrointestinal (Abdomen): Inspection/Auscultation: normal bowel sounds Percussion/Palpation: abdomen soft; abdomen nontender Musculoskeletal: Extremities: strength 5/5 throughout Skin: no rashes, warm and dry Neurologic: delgado, fluent speech, no tremor Psychiatric: Orientation: oriented x 3 Results & Data ([facility]) Vital Signs (Past 12 Hours) Vital Signs Temp Pulse Pulse Resp BP Pulse Ox Pulse Ox 08/02/22 08:00 59 L 08/02/22 08:00 98 08/02/22 12:19 36.5 C 67 17 108/69 94 08/02/22 07:42 08/02/22 07:40 36.4 C L 65 20 105/76 93 O2 Del Method O2 Flow Rate 08/02/22 08:00 08/02/22 08:00 08/02/22 12:19 Nasal Cannula 3 08/02/22 07:42 Nasal Cannula 5 08/02/22 07:40 Room Air, Nasal Cannula 3 Laboratory Results 07/31/22 06:32 08/02/22 07:35
[2022-08-02] MEDS: FUROSEMIDE 80 MG TAB PO SCH (17:12)
[2022-08-02] MEDS: ALBUT/IPRATROP 3MG/0.5MG NEB 3 ML VIAL NEB PRN (17:56)
[2022-08-02] MEDS: ACETAMINOPHEN 325 MG TAB PO PRN (23:51)
[2022-08-03] MEDS: LEVOTHYROXINE SODIUM 88 MCG TABLET PO SCH (06:46)
[2022-08-03 07:44] LABS: BUN Creatinine Ratio 34.5 (10-20); Blood Urea Nitrogen 39 mg/dl (6-23); Calcium 9.6 mg/dl (8.5-10.1); Carbon Dioxide 40 mmol/L (21-32); Chloride 79 mmol/L (98-107); Creatinine Clr Calc Pharmacy 59.2 ml/min; Est GFR (African American) 63.4 ml/min; Est GFR (Non-African American) 54.7 ml/min; Glucose 132 mg/dl (70-99(Fasting))
[2022-08-03] MEDS ORDERED: NovoLIN-N (NPH) PER UNIT CHARGE SQ ONE (08:00)
[2022-08-03] MEDS: ALBUT/IPRATROP 3MG/0.5MG NEB 3 ML VIAL NEB PRN (08:45)
--- NOTE | 2022-08-03 08:51 | Cardiology Progress Note ---
Date of Service August 03, 2022 Assessment & Plan (1) Pulmonary hypertension: (2) Idiopathic interstitial pneumonia: (3) Hypoxia: (4) Cor pulmonale: (5) Leg edema: (6) Respiratory acidosis: (7) Metabolic alkalosis: (8) Hypotension: (9) Volume overload: (10) Chronic respiratory failure with hypoxia: Plan The patient I believe is at baseline weight. Her edema in her legs is in my opinion resolved. Nephrology's help is appreciated. Hopefully, the patient can be discharged to outpatient care soon. Admission and Anticipated Discharge Date Admission Date: July 23, 2022 Subjective The patient had an uneventful night. Review of Systems Review of Systems: Review of Systems: See HPI for pertinent positives. All other 10 point review of systems are negative. Physical Exam Physical Exam: General: no acute distress and stated age Head: normocephalic, no masses, lesions, tenderness or abnormalities Eyes: conjunctiva are pink and non-injected, sclera clear Neck: supple, no adenopathy, no bruits, normal jugular venous pulse, no hepatojugular reflux Chest: normal shape and normal respiratory effort Lungs: clear to auscultation and percussion Cardiac Exam: - regular rate & rhythm, no murmurs gallops or rubs - normal S1, normal S2 Pulses: 2(+) throughout Abdomen: abdomen soft, non-tender, no abnormal masses and no hepatosplenomegaly Musculoskeletal: no gait disturbance, no joint inflammation, no deforming arthritis Extremities: Edema resolved Neuro: grossly normal exam Results & Data ([facility]) Vital Signs (Past 12 Hours) Vital Signs Temp Pulse Resp BP Pulse Ox O2 Del Method O2 Flow Rate 08/03/22 08:45 74 18 91 Nasal Cannula 3 08/03/22 07:42 36.4 C L 65 20 110/71 95 Nasal Cannula 3 08/03/22 06:00 36.6 C 55 L 16 98/64 L 98 Nasal Cannula 3 08/03/22 00:29 36.6 C 64 16 95/60 L 93 Nasal Cannula 3 Laboratory Results Laboratory Results - last 24 hr 08/02/22 08/02/22 08/02/22 07:35 11:38 11:40 Sodium 129 L Potassium 3.5 Chloride 76 L Carbon Dioxide > 45 H* Anion Gap TNP BUN 39 H Creatinine 1.11 Est Cr Clr Drug Dosing 61.0 Est GFR ( Amer) 64.7 Est GFR (Non-Af Amer) 55.9 BUN/Creatinine Ratio 35.1 H Glucose 142 H POC Glucose 293 H 228 H Calcium 9.5 Magnesium 2.1 08/02/22 08/02/22 08/02/22 11:42 16:35 20:07 Sodium Potassium Chloride Carbon Dioxide Anion Gap BUN Creatinine Est Cr Clr Drug Dosing Est GFR ( Amer) Est GFR (Non-Af Amer) BUN/Creatinine Ratio Glucose POC Glucose 274 H 165 H 181 H Calcium Magnesium 08/03/22 08/03/22 08/03/22 06:57 07:25 08:08 Sodium TNP Pending Potassium TNP Pending Chloride 79 L Carbon Dioxide 40 H Anion Gap TNP BUN 39 H Creatinine 1.13 Est Cr Clr Drug Dosing 59.2 Est GFR ( Amer) 63.4 Est GFR (Non-Af Amer) 54.7 BUN/Creatinine Ratio 34.5 H Glucose 132 H POC Glucose 133 H Calcium 9.6 Magnesium Medications Administered Current Inpatient Medications Acetaminophen (Acetaminophen 325 Mg Tab) 650 mg PO Q4H PRN PRN Reason: Pain or Fever Stop: 08/22/22 23:33 Last Admin: 08/02/22 23:51 Dose: 650 mg Acetazolamide (Acetazolamide 500 Mg Capcr) 1,000 mg PO BID [facility] Stop: 09/01/22 20:59 Last Admin: 08/02/22 20:44 Dose: 1,000 mg Albuterol (Albuterol Hfa 8 Gm Inhaler) 2 puffs INH Q6H PRN PRN Reason: Wheezing Stop: 08/22/22 23:33 Albuterol (Albut/Ipratrop 3mg/0.5mg Neb 3 Ml Vial) 3 ml NEB QIDR PRN; Protocol PRN Reason: Shortness Of Breath Or Wheezing Stop: 08/23/22 06:59 Last Admin: 08/03/22 08:45 Dose: 3 ml Benzonatate (Benzonatate 100 Mg Capsule) 100 mg PO TID PRN PRN Reason: Cough Stop: 08/22/22 23:33 Citalopram Hydrobromide (Citalopram 20 Mg Tab) 10 mg PO QAM [facility] Stop: 08/23/22 08:59 Last Admin: 08/02/22 08:17 Dose: 10 mg Clotrimazole (Clotrimazole 1% Cr 15 Gm Tube) 1 appln TOP BID [facility] Stop: 08/23/22 08:59 Last Admin: 08/02/22 20:44 Dose: Not Given Cyanocobalamin (Cyanocobalamin (B-12) 500 Mcg Tablet) 1,000 mcg PO DAILY [facility] Stop: 08/23/22 08:59 Last Admin: 08/02/22 08:17 Dose: 1,000 mcg Dextrose (Dextrose 50% 50 Ml Syringe) 25 - 50 ml IV UD PRN; Protocol PRN Reason: Hypoglycemia Protocol Stop: 08/22/22 23:44 Enoxaparin Sodium (Enoxaparin Inj 40 Mg/0.4 Ml Syr) 40 mg SQ Q12 [facility] Stop: 08/22/22 23:33 Last Admin: 08/02/22 20:44 Dose: 40 mg Furosemide (Furosemide 80 Mg Tab) 80 mg PO [id number] [facility] Stop: 09/01/22 16:59 Last Admin: 08/02/22 17:12 Dose: 80 mg Glucagon (Glucagon For Inj 1 Mg Vial) 1 mg IM UD PRN; Protocol PRN Reason: Hypoglycemia Protocol Stop: 08/22/22 23:44 Glucose (Glucose 40% Gel 15 Gm Tube) 15 - 30 gm PO UD PRN; Protocol PRN Reason: Hypoglycemia Protocol Stop: 08/22/22 23:44 Glucose (Glucose 10 Tab/Tube) 4 - 8 tab PO UD PRN; Protocol PRN Reason: Hypoglycemia Protocol Stop: 08/22/22 23:44 Guaifenesin/Codeine Phosphate (Guaifenesin/Codeine 200mg/20mg 10ml Udc) 10 ml PO Q6H PRN PRN Reason: Cough Stop: 08/22/22 23:33 Insulin Aspart (Insulin Aspart Per Unit) 0 units SC HS [facility]; Protocol Stop: 08/26/22 20:59 Last Admin: 08/02/22 20:56 Dose: 1 units Insulin Aspart (Insulin Aspart Per Unit) 0 units SC TODAY@1130,1630 [facility]; Protocol Stop: 09/02/22 11:29 Insulin Aspart (Insulin Aspart Per Unit) 0 units SC TODAY@0730 [facility]; Protocol Stop: 09/02/22 07:29 Lactobacillus Acidophilus (Advanced Probiotic 1250 Mg Capsule) 2 cap PO DAILY [facility] Stop: 08/23/22 08:59 Last Admin: 08/02/22 08:18 Dose: 2 cap Levothyroxine Sodium (Levothyroxine Sodium 88 Mcg Tablet) 88 mcg PO DAILYBB [facility] Stop: 08/23/22 06:29 Last Admin: 08/03/22 06:46 Dose: 88 mcg Magnesium Oxide (Magnesium Oxide 400 Mg Tab) 400 mg PO BID [facility] Stop: 08/25/22 20:59 Last Admin: 08/02/22 20:44 Dose: 400 mg Metoprolol Succinate (Metoprolol Succ 50mg Ext Rel Tab) 100 mg PO QAM [facility] Stop: 08/23/22 08:59 Last Admin: 08/02/22 08:18 Dose: 100 mg Miscellaneous (Carbohydrates For Hypoglycemia ) 15 - 30 gm PO UD PRN PRN Reason: Hypoglycemia Treatment Stop: 08/22/22 23:44 Last Admin: 07/30/22 07:45 Dose: 15 gm Miscellaneous Information (Pharmacy Glycemic Mgmt Consult) 1 each N/A UD PRN; Protocol PRN Reason: Consult Stop: 08/23/22 06:02 Neomycin/Polymyxin/Bacitracin (Neomycin/Polymyx/Bacitr Oint 15 Gm Tube) 1 appln EXT BID [facility] Stop: 08/25/22 09:59 Last Admin: 08/02/22 21:18 Dose: Not Given Nitroglycerin (Nitroglycerin Sl 0.4 Mg/Tab Tab) 0.4 mg SL UD PRN PRN Reason: Chest Pain Stop: 08/22/22 23:33 Polyethylene Glycol (Polyethylene (Miralax) 17 Gm Pack) 17 gm PO DAILY PRN PRN Reason: Constipation Stop: 08/22/22 23:33 Potassium Chloride (Potassium Chloride Crtab 20 Meq Tabcr) 40 meq PO BID [facility] Stop: 08/30/22 20:59 Last Admin: 08/02/22 20:43 Dose: 40 meq Prednisone (Prednisone 10 Mg Tablet) 10 mg PO DAILY [facility] Stop: 08/04/22 08:59 Last Admin: 08/02/22 08:18 Dose: 10 mg Rosuvastatin Calcium (Rosuvastatin Calcium 5 Mg Tab) 5 mg PO SuWe@0900 [facility] Stop: 08/23/22 08:59 Last Admin: 07/31/22 08:12 Dose: 5 mg
[2022-08-03] MEDS: INSULIN ASPART PER UNIT SC SCH ×4 (09:11→21:28)
[2022-08-03] MEDS: predniSONE 10 MG TABLET PO SCH (09:13)
[2022-08-03] MEDS: acetaZOLAMIDE 500 MG CAPCR PO SCH ×2 (09:13→21:31)
[2022-08-03] MEDS: CYANOCOBALAMIN (B-12) 500 MCG TABLET PO SCH (09:14)
[2022-08-03] MEDS: CITALOPRAM 20 MG TAB PO SCH (09:14)
[2022-08-03] MEDS: ADVANCED PROBIOTIC 1250 MG CAPSULE PO SCH (09:14)
[2022-08-03] MEDS: METOPROLOL SUCC 50MG EXT REL TAB PO SCH (09:14)
[2022-08-03] MEDS: ROSUVASTATIN CALCIUM 5 MG TAB PO SCH (09:15)
[2022-08-03] MEDS: ENOXAPARIN INJ 40 MG/0.4 ML SYR SQ SCH ×2 (09:15→21:28)
[2022-08-03] MEDS: NEOMYCIN/POLYMYX/BACITR OINT 15 GM TUBE EXT SCH ×2 (09:16→21:27)
[2022-08-03] MEDS: CLOTRIMAZOLE 1% CR 15 GM TUBE TOP SCH ×2 (09:16→21:27)
[2022-08-03] MEDS: MAGNESIUM OXIDE 400 MG TAB PO SCH ×2 (09:18→22:08)
[2022-08-03] MEDS: FUROSEMIDE 80 MG TAB PO SCH ×2 (09:23→17:01)
[2022-08-03] MEDS: POTASSIUM CHLORIDE CRTAB 20 MEQ TABCR PO SCH ×4 (09:23→21:30)
--- NOTE | 2022-08-03 13:14 | Pharmacy Report ---
Pharmacy Glycemic Short Note 2 - Date of Service August 03, 2022 - Glycemic Short BSG Results (Last 24 hours): 08/02/22 08/02/22 08/03/22 16:35 20:07 06:57 Glucose 132 H POC Glucose 165 H 181 H 08/03/22 08/03/22 08/03/22 07:25 11:32 11:33 Glucose POC Glucose 133 H 305 H* 307 H* OUTPATIENT ANTIDIABETIC REGIMEN: * Metformin 2 gm PO daily * Glipizide 10 mg PO daily * HbA1c: 12.3% (07/24/22), could be affected by outpatient steroid use ASSESSMENT: 08/03 * Patient with acceptable BSGs with exception of lunch BSG which remains elevated, likely d/t steroid. * Conservatively increased NPH this morning and tightened novolog with breakfast. Lunch BSG still elevated today, will tighten carb ratio again tomorrow * Gave modified correction with lunch today as patient did not eat immediately after and patient had already eaten (post-prandial would be higher). 08/01: * BSGs [phone]/dL the last 24h. 1630 BSG yesterday was not corrected. Pt received 8 units of basal and 18 units of bolus insulin yesterday. * Continues on prednisone 10mg PO daily and tolerating diet. * NPH 8 units today, Novolog parameters tightened with meals. 07/30: * Patient received total of 53 units of insulin yesterday, of which 15 units were NPH * Fasting low this AM 56 mg/dL - will decrease NPH dose in half for this morning as unclear what is contributing to lower fasting - no novolog given at HS time 07/29: * Ale never require pressor/inotropic support upon transfer to the ICU. Stressors are stable at this point and will be downgraded from ICU. * Remains on Prednisone 20 mg PO daily. Continue with NPH to cover for steroid- induced hyperglycemia. Of note, steroids are set to discontinue after tomorrow's dose (07/30). Unsure of further taper. * RN did not check a POC BSG this AM and utilized the serum BSG of 87 mg/dL from ~0500 for unknown reasons. Do not believe that this BSG was truly sales representative [employer] products of what the patient truly was. No AM Novolog was given and not documented whether the patient ate breakfast or not. * Lunchtime BSG was 251 mg/dL. Do not feel comfortable making any changes to insulin regimen at today given uncertainty of AM and lunchtime BSGs. 07/28: * Stressors stable * AM fasting BSG still below goal range but not hypoglycemic and is trending up from yesterday - no change to NPH * Post-prandial BSG's elevated. Will tighten Novolog parameters AC but leave looser HS 07/27: * This morning, the patient experienced another episode of hypoglycemia ( BSG 67 mg/dL). This may be due to overcorrection of previous nighttime BSG (267 mg/dL). * HS correction factor will be loosened to prevent opportunity for overcorrection of nightime BSG and subsequent hypoglycemic episodes. * Mealtime carb coverage will be tightened in observance of elevated postprandial BSG's * Will continue NPH 15 units daily alongside of prednisone 20mg daily to match pharmacokinetic peak. Will continue to avoid Lantus use due to low fasting BSG's. PLAN FOR INPATIENT GLYCEMIC CONTROL: * Hold outpatient oral diabetes medications * Basal insulin * NPH 10 SC daily, while on prednisone 10 mg daily * Bolus insulin * NovoLog per scale ACHS or Q6hrs while NPO * Goal Range: Low 110 mg/dL - High 140 mg/dL * Correction Factor: 15 mg/dL/unit with breakfast, lunch and dinner; 30 mg/dL/unit at HS * Carb ratio: 4 g CHO/unit with breakfast, 5 with lunch and dinner; -- g CHO/unit at HS
[2022-08-03] MEDS ORDERED: INSULIN ASPART PER UNIT SC ONE (13:15)
--- NOTE | 2022-08-03 14:46 | Hospitalist Progress Note ---
Date of Service August 03, 2022 Assessment & Plan (1) Hypoxia: Plan: Patient is a 57 yr female who presents with worsening shortness of breath, [id number] respiratory failure. Gzmuy-[id number] respiratory failure with Hypoxia Chronic oxygen dependency--on 3-4 L at baseline Chronic interstitial lung disease--Possible Flare H/O COVID Pulmonary artery hypertension Cor pulmonale Chronic steroid dependence Respiratory failure likely multifactorial: Interstitial lung disease, PAH, Right-sided heart failure Metabolic alkalosis --CT Chest:Cardiomegaly without acute intrathoracic abnormality. Chronic interstitial lung disease with subpleural predominant cysts/honeycombing, subpleural reticulation with groundglass densities and bronchiectasis, right greater than left. The subpleural cystic changes/honeycombing has progressively worsened compared to the 05/06/2021 exam. Mildly improved mediastinal and hilar lymphadenopathy, likely related to the chronic interstitial lung disease. Cardiomegaly with evidence of pulmonary arterial hypertension. Unchanged fusiform dilation of the ascending thoracic aorta, 4.2 cm. --ECHO: EF 60 to 65%. Normal LV chamber size and wall thickness. No segmental left ventricle wall motion abnormality. Flattened septum is consistent with RV pressure/volume overload. D-shaped LV chamber. Grade 1 diastolic dysfunction. Right ventricle is severely dilated. Right ventricular systolic function is severely reduced. Mild aortic regurgitation. Severe tricuspid regurgitation. Severe pulmonary artery hypertension. -- Procalcitonin 0.05 --Blood cultures negative --Urine for Legionella Negative --Nasal MRSA Negative --Continue IV Solu-Medrol>> transition to prednisone taper course --Continue nebs PRN --Received IV Lasix Monitor I's and O's, daily weight, electrolytes Appreciate Pulmonology/Cardiology/Nephrology/Critical Care Input Needs sleep study as outpatient Wean supplemental oxygen as able Continue Diamox Valsartan held Metolazone discontinued Prednisone decreased to 10 mg daily:Plan to taper off of steroids in 4 to 6 weeks as recommended by pulmonology Continue diuretics as per nephrology, cardiology Monitor volume status Will need 2 step prior to discharge Mild troponin elevation Likely demand ischemia secondary to hypoxia Chronic hyponatremia Sodium 129 today Monitor sodium levels Vitamin D deficiency Continue vitamin D supplements Abnormal urinalysis Ruled out UTI Urine culture Negative cefepime discontinued DM II HbA1C 12.3 Continue insulin per protocol Monitor BGs Glycemic pharmacy consulted Hypocalcemia: Likely due to vitamin D deficiency Received IV calcium gluconate Monitor Hypokalemia Hypomagnesemia Replete as needed Morbid obesity: BMI 41 Needs counseling Possible sleep apnea Patient refused sleep study as outpatient Depression: Continue citalopram Vitamin B12 deficiency: Continue vitamin B12 supplements. Hypothyroidism: Continue Levothyroxine Hypertension: Continue metoprolol with holding parameters valsartan held Hyperlipidemia: On statin. DVT Px: Lovenox SQ CODE STATUS Full code Admission and Anticipated Discharge Date Admission Date: July 23, 2022 Subjective Patient is seen and examined at bedside No new complaints Leg edema improving Denies any chest pain, dyspnea, dizziness, nausea, abdominal pain Renal function stable Review of Systems Review of Systems: All systems reviewed & are unremarkable except as noted in Subjective Physical Exam Physical Exam: Physical Exam: Vitals signs as noted above General Appearance:Morbidly obese, no apparent distress Head: normocephalic, Atraumatic Eyes: normal inspection, EOMI Neck: supple, Trachea midline Respiratory/Chest: Decreased breath sounds, CTA, No accessory muscle use Cardiovascular: S1, S2, No murmur Abdomen/GI:Soft, Non tender, Bowel sounds present Extremities/Musculoskeletal:normal inspection, 2+ B/L LE edema Neurologic/Psych:AAOX3, grossly no focal neurological deficits Skin: normal color, warm Results & Data Results & Data ([facility]) Vital Signs (Past 12 Hours) Vital Signs Temp Pulse Pulse Pulse Resp BP BP 08/03/22 11:34 36.8 C 71 20 106/75 08/03/22 11:16 08/03/22 08:00 08/03/22 08:00 67 08/03/22 08:45 74 18 08/03/22 07:42 36.4 C L 65 20 110/71 08/03/22 06:00 36.6 C 55 L 16 98/64 L Pulse Ox Pulse Ox O2 Del Method O2 Del Method O2 Flow Rate O2 Flow Rate 08/03/22 11:34 95 Nasal Cannula 2 08/03/22 11:16 Oxymask 3 08/03/22 08:00 95 Nasal Cannula 2.5 08/03/22 08:00 08/03/22 08:45 91 Nasal Cannula 3 08/03/22 07:42 95 Nasal Cannula 3 08/03/22 06:00 98 Nasal Cannula 3 Laboratory Results [facility] 08/03/22 08/03/22 06:57 08:08 Sodium TNP 129 L Potassium TNP 3.0 L Chloride 79 L Carbon Dioxide 40 H BUN 39 H Creatinine 1.13 Glucose 132 H Calcium 9.6
--- NOTE | 2022-08-03 15:22 | Nephrology Progress Note ---
Date of Service August 03, 2022 Assessment & Plan (1) Acute and chronic respiratory failure: Plan: diuresis limited by acid base imbalance > lasix lowered 08/02 by cardiology d/t this > increased diamox to 1 gm bid (can go up to 4 gm daily off label) -cont lowered lasix dose > from 60 mg IV tid to 80 mg po bid17 on 08/02 -metolazone on hold -continue current K dosing 40 mEq bid plus she had extra 80 mEq po today >recheck bmp 1700 ordered po acetazolamide not a routinely rx'd drug but believe she will need 1 gm po bid at d/c >> pls have d/c c4 planner evaluate cost of rx would plan also to d/c on current lasix po dose and waiting to establish best K dose (2) Metabolic alkalosis with respiratory acidosis: Plan: chronic contraction alkalosis with diuresis in setting of chronic respiratory a cidosis Admission and Anticipated Discharge Date Admission Date: July 23, 2022 Subjective continues to feel improved; on po meds Review of Systems Review of Systems: All systems reviewed & are unremarkable except as noted in Subjective Physical Exam Constitutional: well developed, well nourished and cooperative Eyes: EOM intact bilaterally ENMT: Ears: no external ear abnormality Nose: no external nose abnormality Mouth: + dry oral mucous membranes Neck: no nuchal rigidity Respiratory: normal respiratory effort Auscultation: + diminished lung sounds and + crackles (diffuse fine) Cardiovascular: Rate/Rhythm: regular rate and regular rhythm Extremities: + edema (decreasing further) Gastrointestinal (Abdomen): Inspection/Auscultation: normal bowel sounds Percussion/Palpation: abdomen soft; abdomen nontender Musculoskeletal: Extremities: strength 5/5 throughout Skin: no rashes, warm and dry Psychiatric: Orientation: oriented x 3 Results & Data ([facility]) Vital Signs (Past 12 Hours) Vital Signs Temp Pulse Pulse Pulse Resp BP BP 08/03/22 11:34 36.8 C 71 20 106/75 08/03/22 11:16 08/03/22 08:00 08/03/22 08:00 67 08/03/22 08:45 74 18 08/03/22 07:42 36.4 C L 65 20 110/71 08/03/22 06:00 36.6 C 55 L 16 98/64 L Pulse Ox Pulse Ox O2 Del Method O2 Del Method O2 Flow Rate O2 Flow Rate 08/03/22 11:34 95 Nasal Cannula 2 08/03/22 11:16 Oxymask 3 08/03/22 08:00 95 Nasal Cannula 2.5 08/03/22 08:00 08/03/22 08:45 91 Nasal Cannula 3 08/03/22 07:42 95 Nasal Cannula 3 08/03/22 06:00 98 Nasal Cannula 3 Laboratory Results 07/31/22 06:32 08/03/22 08:08
[2022-08-03 18:39] LABS: BUN Creatinine Ratio 30.2 (10-20); Calcium 9.5 mg/dl (8.5-10.1); Creatinine Clr Calc Pharmacy 51.9 ml/min; Est GFR (Non-African American) 46.6 ml/min; Potassium 3.9 mmol/L (3.5-5.1)
[2022-08-04] MEDS: LEVOTHYROXINE SODIUM 88 MCG TABLET PO SCH (06:12)
[2022-08-04] MEDS ORDERED: NovoLIN-N (NPH) PER UNIT CHARGE SQ ONE (08:00)
[2022-08-04] MEDS: CLOTRIMAZOLE 1% CR 15 GM TUBE TOP SCH ×2 (08:38→20:51)
[2022-08-04] MEDS: POTASSIUM CHLORIDE CRTAB 20 MEQ TABCR PO SCH ×2 (08:38→20:54)
[2022-08-04] MEDS: MAGNESIUM OXIDE 400 MG TAB PO SCH ×2 (08:38→20:54)
[2022-08-04] MEDS: FUROSEMIDE 80 MG TAB PO SCH ×3 (08:38→17:41)
[2022-08-04] MEDS: CITALOPRAM 20 MG TAB PO SCH (08:38)
[2022-08-04] MEDS: CYANOCOBALAMIN (B-12) 500 MCG TABLET PO SCH (08:38)
[2022-08-04] MEDS: acetaZOLAMIDE 500 MG CAPCR PO SCH ×2 (08:38→20:52)
[2022-08-04] MEDS: METOPROLOL SUCC 50MG EXT REL TAB PO SCH (08:38)
[2022-08-04] MEDS: ADVANCED PROBIOTIC 1250 MG CAPSULE PO SCH (08:38)
[2022-08-04] MEDS: NEOMYCIN/POLYMYX/BACITR OINT 15 GM TUBE EXT SCH ×2 (08:39→20:51)
[2022-08-04 08:41] LABS: BUN Creatinine Ratio 36.5 (10-20); Calcium 9.1 mg/dl (8.5-10.1); Creatinine Clr Calc Pharmacy 64.2 ml/min; Est GFR (Non-African American) 60.4 ml/min; Magnesium 2.1 mg/dl (1.7-2.4); Potassium 3.6 mmol/L (3.5-5.1)
[2022-08-04] MEDS: ENOXAPARIN INJ 40 MG/0.4 ML SYR SQ SCH ×2 (08:43→20:51)
[2022-08-04] MEDS: INSULIN ASPART PER UNIT SC SCH ×4 (08:46→20:55)
--- NOTE | 2022-08-04 08:58 | Pharmacy Report ---
Pharmacy Glycemic Short Note 2 - Date of Service August 04, 2022 - Glycemic Short BSG Results (Last 24 hours): 08/03/22 08/03/22 08/03/22 11:32 11:33 16:38 Glucose POC Glucose 305 H* 307 H* 223 H 08/03/22 08/03/22 08/04/22 16:58 20:43 07:26 Glucose 218 H POC Glucose 87 157 H 08/04/22 07:52 Glucose 161 H POC Glucose OUTPATIENT ANTIDIABETIC REGIMEN: * Metformin 2 gm PO daily * Glipizide 10 mg PO daily * HbA1c: 12.3% (07/24/22), could be affected by outpatient steroid use ASSESSMENT: 08/04: * Tightened breakfast carb ratio and increased NPH 20% with prednisone 10 mg * Will continue previous novolog throughout the day * Monitor for additional changes 08/03 * Patient with acceptable BSGs with exception of lunch BSG which remains elevated, likely d/t steroid. * Conservatively increased NPH this morning and tightened novolog with breakfast. Lunch BSG still elevated today, will tighten carb ratio again tomorrow * Gave modified correction with lunch today as patient did not eat immediately after and patient had already eaten (post-prandial would be higher). 08/01: * BSGs [phone]/dL the last 24h. 1630 BSG yesterday was not corrected. Pt received 8 units of basal and 18 units of bolus insulin yesterday. * Continues on prednisone 10mg PO daily and tolerating diet. * NPH 8 units today, Novolog parameters tightened with meals. 07/30: * Patient received total of 53 units of insulin yesterday, of which 15 units were NPH * Fasting low this AM 56 mg/dL - will decrease NPH dose in half for this morning as unclear what is contributing to lower fasting - no novolog given at HS time 07/29: * Ale never require pressor/inotropic support upon transfer to the ICU. Stressors are stable at this point and will be downgraded from ICU. * Remains on Prednisone 20 mg PO daily. Continue with NPH to cover for steroid- induced hyperglycemia. Of note, steroids are set to discontinue after tomorrow's dose (07/30). Unsure of further taper. * RN did not check a POC BSG this AM and utilized the serum BSG of 87 mg/dL from ~0500 for unknown reasons. Do not believe that this BSG was truly representa tive of what the patient truly was. No AM Novolog was given and not documented whether the patient ate breakfast or not. * Lunchtime BSG was 251 mg/dL. Do not feel comfortable making any changes to ins ulin regimen at today given uncertainty of AM and lunchtime BSGs. 07/28: * Stressors stable * AM fasting BSG still below goal range but not hypoglycemic and is trending up from yesterday - no change to NPH * Post-prandial BSG's elevated. Will tighten Novolog parameters AC but leave looser HS 07/27: * This morning, the patient experienced another episode of hypoglycemia ( BSG 67 mg/dL). This may be due to overcorrection of previous nighttime BSG (267 mg/dL). * HS correction factor will be loosened to prevent opportunity for overcorrection of nightime BSG and subsequent hypoglycemic episodes. * Mealtime carb coverage will be tightened in observance of elevated postprandial BSG's * Will continue NPH 15 units daily alongside of prednisone 20mg daily to match pharmacokinetic peak. Will continue to avoid Lantus use due to low fasting BSG's. PLAN FOR INPATIENT GLYCEMIC CONTROL: * Hold outpatient oral diabetes medications * Basal insulin * NPH 12 SC daily, while on prednisone 10 mg daily * Bolus insulin * NovoLog per scale ACHS or Q6hrs while NPO * Goal Range: Low 110 mg/dL - High 140 mg/dL * Correction Factor: 15 mg/dL/unit with breakfast, lunch and dinner; 30 mg/dL/unit at HS * Carb ratio: 3 g CHO/unit with breakfast, 5 with lunch and dinner; -- g CHO/unit at HS
--- NOTE | 2022-08-04 09:00 | Nephrology Progress Note ---
Date of Service August 04, 2022 Assessment & Plan (1) Acute and chronic respiratory failure: Plan: diuresis limited by acid base imbalance > lasix lowered 08/02 by cardiology d/t this. >from 07/30-08/04 has diuresed 19.8 lb or 9 kg -mild but acceptable hyponatremia which will need to be monitored after d/c -will give additional 60 mEq po K x 1 today NEPHRO D/C RECS -diamox 1 gm bid (can go up to 4 gm daily off label) > pls have d/c corporate meeting planner check cost/availability -lasix 80 mg po 2 daily doses at least 4h apart -no metolazone -d/c on 40 mEq K bid -weekly bmp -daily standing weight -1.5L daily fluid limit -<2 gm daily Na diet -weekly bmp x 3 to be ordered by nephro RN w/ report of wt trends weekly -hospital d/c f/u w/ me in [facility] or [facility] in 2-4 wks (2) Metabolic alkalosis with respiratory acidosis: Plan: chronic contraction alkalosis with diuresis in setting of chronic respiratory acidosis Admission and Anticipated Discharge Date Admission Date: July 23, 2022 Subjective no interval events; diuresis has slowed on po lasix Review of Systems Review of Systems: All systems reviewed & are unremarkable except as noted in Subjective Physical Exam Constitutional: well developed, well nourished and cooperative Eyes: EOM intact bilaterally ENMT: Ears: no external ear abnormality Nose: no external nose abnormality Mouth: + dry oral mucous membranes Neck: no nuchal rigidity Respiratory: normal respiratory effort Auscultation: + diminished lung sounds and + crackles (diffuse fine) Cardiovascular: Rate/Rhythm: regular rate and regular rhythm Extremities: + edema (decreasing even further) Gastrointestinal (Abdomen): Inspection/Auscultation: normal bowel sounds Percussion/Palpation: abdomen soft; abdomen nontender Musculoskeletal: Extremities: strength 5/5 throughout Skin: no rashes, warm and dry Neurologic: delgado, fluent speech, no tremor Psychiatric: Orientation: oriented x 3 Results & Data ([facility]) Vital Signs (Past 12 Hours) Vital Signs Temp Pulse Pulse Pulse Resp BP BP 08/04/22 07:27 36.6 C 64 19 112/72 08/03/22 22:17 76 08/04/22 02:54 36.6 C 58 L 18 102/64 12/21/22 23:14 37.0 C 66 18 92/53 L Pulse Ox O2 Del Method O2 Flow Rate 08/04/22 07:27 93 Nasal Cannula 2 08/03/22 22:17 08/04/22 02:54 96 Nasal Cannula 08/03/22 23:14 95 Nasal Cannula 2 Laboratory Results 07/31/22 06:32 08/04/22 07:52
[2022-08-04] MEDS: ALBUT/IPRATROP 3MG/0.5MG NEB 3 ML VIAL NEB PRN ×2 (09:06→21:20)
--- NOTE | 2022-08-04 10:45 | Cardiology Progress Note ---
Date of Service August 04, 2022 Assessment & Plan (1) Pulmonary hypertension: (2) Idiopathic interstitial pneumonia: (3) Hypoxia: (4) Cor pulmonale: (5) Leg edema: (6) Respiratory acidosis: (7) Metabolic alkalosis: (8) Hypotension: (9) Volume overload: (10) Chronic respiratory failure with hypoxia: Plan Nephrology's note is appreciated and I agree that the patient can be discharged to outpatient follow-up. I will arrange follow-up with our clinic in [place] after discharge. Admission and Anticipated Discharge Date Admission Date: July 23, 2022 Subjective The patient did well through the night. No new complaints. Review of Systems Review of Systems: Review of Systems: See HPI for pertinent positives. All other 10 point review of systems are negative. Physical Exam Physical Exam: General: no acute distress and stated age Head: normocephalic, no masses, lesions, tenderness or abnormalities Eyes: conjunctiva are pink and non-injected, sclera clear Neck: supple, no adenopathy, no bruits, normal jugular venous pulse, no hepatojugular reflux Chest: normal shape and normal respiratory effort Lungs: clear to auscultation and percussion Cardiac Exam: - regular rate & rhythm, no murmurs gallops or rubs - normal S1, normal S2 Pulses: 2(+) throughout Abdomen: abdomen soft, non-tender, no abnormal masses and no hepatosplenomegaly Musculoskeletal: no gait disturbance, no joint inflammation, no deforming arthritis Extremities: Edema resolved Neuro: grossly normal exam Results & Data ([facility]) Vital Signs (Past 12 Hours) Vital Signs Temp Pulse Pulse Pulse Resp BP BP 08/04/22 08:00 08/04/22 07:41 63 08/04/22 07:41 08/04/22 09:07 86 20 08/04/22 07:27 36.6 C 64 19 112/72 08/04/22 02:54 36.6 C 58 L 18 102/64 08/03/22 23:14 37.0 C 66 18 92/53 L Pulse Ox Pulse Ox O2 Del Method O2 Del Method O2 Flow Rate O2 Flow Rate 08/04/22 08:00 93 Nasal Cannula 2 08/04/22 07:41 08/04/22 07:41 Nasal Cannula 2 08/04/22 09:07 93 Nasal Cannula 2 08/04/22 07:27 93 Nasal Cannula 2 08/04/22 02:54 96 Nasal Cannula 08/03/22 23:14 95 Nasal Cannula 2 Laboratory Results Laboratory Results - last 24 hr 08/03/22 08/03/22 08/03/22 11:32 11:33 16:38 Sodium Potassium Chloride Carbon Dioxide Anion Gap BUN Creatinine Est Cr Clr Drug Dosing Est GFR ( Amer) Est GFR (Non-Af Amer) BUN/Creatinine Ratio Glucose POC Glucose 305 H* 307 H* 223 H Calcium Magnesium 08/03/22 08/03/22 08/04/22 16:58 20:43 07:26 Sodium 127 L Potassium 3.9 D Chloride 84 L Carbon Dioxide 35 H Anion Gap 8 BUN 39 H Creatinine 1.29 H Est Cr Clr Drug Dosing 51.9 Est GFR ( Amer) 54.0 Est GFR (Non-Af Amer) 46.6 BUN/Creatinine Ratio 30.2 H Glucose 218 H POC Glucose 87 157 H Calcium 9.5 Magnesium 08/04/22 07:52 Sodium 130 L Potassium 3.6 Chloride 86 L Carbon Dioxide 37 H Anion Gap 7 BUN 38 H Creatinine 1.04 Est Cr Clr Drug Dosing 64.2 Est GFR ( Amer) 70.0 Est GFR (Non-Af Amer) 60.4 BUN/Creatinine Ratio 36.5 H Glucose 161 H POC Glucose Calcium 9.1 Magnesium 2.1 Medications Administered Current Inpatient Medications Acetaminophen (Acetaminophen 325 Mg Tab) 650 mg PO Q4H PRN PRN Reason: Pain or Fever Stop: 08/22/22 23:33 Last Admin: 08/02/22 23:51 Dose: 650 mg Acetazolamide (Acetazolamide 500 Mg Capcr) 1,000 mg PO BID RAEANN Stop: 09/01/22 20:59 Last Admin: 08/04/22 08:38 Dose: 1,000 mg Albuterol (Albuterol Hfa 8 Gm Inhaler) 2 puffs INH Q6H PRN PRN Reason: Wheezing Stop: 08/22/22 23:33 Albuterol (Albut/Ipratrop 3mg/0.5mg Neb 3 Ml Vial) 3 ml NEB QIDR PRN; Protocol PRN Reason: Shortness Of Breath Or Wheezing Stop: 08/23/22 06:59 Last Admin: 08/04/22 09:06 Dose: 3 ml Benzonatate (Benzonatate 100 Mg Capsule) 100 mg PO TID PRN PRN Reason: Cough Stop: 08/22/22 23:33 Citalopram Hydrobromide (Citalopram 20 Mg Tab) 10 mg PO QAM [facility] Stop: 08/23/22 08:59 Last Admin: 08/04/22 08:38 Dose: 10 mg Clotrimazole (Clotrimazole 1% Cr 15 Gm Tube) 1 appln TOP BID RAEANN Stop: 08/23/22 08:59 Last Admin: 08/04/22 08:38 Dose: Not Given Cyanocobalamin (Cyanocobalamin (B-12) 500 Mcg Tablet) 1,000 mcg PO DAILY [facility] Stop: 08/23/22 08:59 Last Admin: 08/04/22 08:38 Dose: 1,000 mcg Dextrose (Dextrose 50% 50 Ml Syringe) 25 - 50 ml IV UD PRN; Protocol PRN Reason: Hypoglycemia Protocol Stop: 08/22/22 23:44 Enoxaparin Sodium (Enoxaparin Inj 40 Mg/0.4 Ml Syr) 40 mg SQ Q12 [facility] Stop: 08/22/22 23:33 Last Admin: 08/04/22 08:43 Dose: 40 mg Furosemide (Furosemide 80 Mg Tab) 80 mg PO BID17 [facility] Stop: 09/01/22 16:59 Last Admin: 08/04/22 08:38 Dose: 80 mg Glucagon (Glucagon For Inj 1 Mg Vial) 1 mg IM UD PRN; Protocol PRN Reason: Hypoglycemia Protocol Stop: 08/22/22 23:44 Glucose (Glucose 40% Gel 15 Gm Tube) 15 - 30 gm PO UD PRN; Protocol PRN Reason: Hypoglycemia Protocol Stop: 08/22/22 23:44 Glucose (Glucose 10 Tab/Tube) 4 - 8 tab PO UD PRN; Protocol PRN Reason: Hypoglycemia Protocol Stop: 08/22/22 23:44 Guaifenesin/Codeine Phosphate (Guaifenesin/Codeine 200mg/20mg 10ml Udc) 10 ml PO Q6H PRN PRN Reason: Cough Stop: 08/22/22 23:33 Last Admin: 08/03/22 21:38 Dose: 10 ml Insulin Aspart (Insulin Aspart Per Unit) 0 units SC HS [facility]; Protocol Stop: 08/26/22 20:59 Last Admin: 08/03/22 21:28 Dose: Not Given Insulin Aspart (Insulin Aspart Per Unit) 0 units SC TODAY@1130,1630 [facility]; Protocol Stop: 09/02/22 11:29 Last Admin: 08/03/22 16:56 Dose: 14 units Insulin Aspart (Insulin Aspart Per Unit) 0 units SC TODAY@0730 [facility]; Protocol Stop: 09/02/22 07:29 Last Admin: 08/04/22 08:46 Dose: 14 units Lactobacillus Acidophilus (Advanced Probiotic 1250 Mg Capsule) 2 cap PO DAILY [facility] Stop: 08/23/22 08:59 Last Admin: 08/04/22 08:38 Dose: 2 cap Levothyroxine Sodium (Levothyroxine Sodium 88 Mcg Tablet) 88 mcg PO DAILYBB [facility] Stop: 08/23/22 06:29 Last Admin: 08/04/22 06:12 Dose: 88 mcg Magnesium Oxide (Magnesium Oxide 400 Mg Tab) 400 mg PO BID [facility] Stop: 08/25/22 20:59 Last Admin: 08/04/22 08:38 Dose: 400 mg Metoprolol Succinate (Metoprolol Succ 50mg Ext Rel Tab) 100 mg PO QAM [facility] Stop: 08/23/22 08:59 Last Admin: 08/04/22 08:38 Dose: 100 mg Miscellaneous (Carbohydrates For Hypoglycemia ) 15 - 30 gm PO UD PRN PRN Reason: Hypoglycemia Treatment Stop: 08/22/22 23:44 Last Admin: 07/30/22 07:45 Dose: 15 gm Miscellaneous Information (Pharmacy Glycemic Mgmt Consult) 1 each N/A UD PRN; Protocol PRN Reason: Consult Stop: 08/23/22 06:02 Neomycin/Polymyxin/Bacitracin (Neomycin/Polymyx/Bacitr Oint 15 Gm Tube) 1 appln EXT BID [facility] Stop: 08/25/22 09:59 Last Admin: 08/04/22 08:39 Dose: 1 appln Nitroglycerin (Nitroglycerin Sl 0.4 Mg/Tab Tab) 0.4 mg SL UD PRN PRN Reason: Chest Pain Stop: 08/22/22 23:33 Polyethylene Glycol (Polyethylene (Miralax) 17 Gm Pack) 17 gm PO DAILY PRN PRN Reason: Constipation Stop: 08/22/22 23:33 Potassium Chloride (Potassium Chloride Crtab 20 Meq Tabcr) 40 meq PO BID [facility] Stop: 08/30/22 20:59 Last Admin: 08/04/22 08:38 Dose: 40 meq Rosuvastatin Calcium (Rosuvastatin Calcium 5 Mg Tab) 5 mg PO SuWe@0900 [facility] Stop: 08/23/22 08:59 Last Admin: 08/03/22 09:15 Dose: 5 mg
--- NOTE | 2022-08-04 12:30 | Hospitalist Progress Note ---
Date of Service August 04, 2022 Assessment & Plan (1) Hypoxia: Plan: Patient is a 57 yr female who presents with worsening shortness of breath, [id number] respiratory failure. [id number]-[id number] respiratory failure with Hypoxia Chronic oxygen dependency--on 3-4 L at baseline Chronic interstitial lung disease--Possible Flare H/O COVID Pulmonary artery hypertension Cor pulmonale Chronic steroid dependence Respiratory failure likely multifactorial: Interstitial lung disease, PAH, Right-sided heart failure Metabolic alkalosis --CT Chest:Cardiomegaly without acute intrathoracic abnormality. Chronic interstitial lung disease with subpleural predominant cysts/honeycombing, subpleural reticulation with groundglass densities and bronchiectasis, right greater than left. The subpleural cystic changes/honeycombing has progressively worsened compared to the 05/06/2021 exam. Mildly improved mediastinal and hilar lymphadenopathy, likely related to the chronic interstitial lung disease. Cardiomegaly with evidence of pulmonary arterial hypertension. Unchanged fusiform dilation of the ascending thoracic aorta, 4.2 cm. --ECHO: EF 60 to 65%. Normal LV chamber size and wall thickness. No segmental left ventricle wall motion abnormality. Flattened septum is consistent with RV pressure/volume overload. D-shaped LV chamber. Grade 1 diastolic dysfunction. Right ventricle is severely dilated. Right ventricular systolic function is severely reduced. Mild aortic regurgitation. Severe tricuspid regurgitation. Severe pulmonary artery hypertension. -- Procalcitonin 0.05 --Blood cultures negative --Urine for Legionella Negative --Nasal MRSA Negative --Continue IV Solu-Medrol>> transition to prednisone taper course --Continue nebs PRN --Received IV Lasix Monitor I's and O's, daily weight, electrolytes Appreciate Pulmonology/Cardiology/Nephrology/Critical Care Input Needs sleep study as outpatient Wean supplemental oxygen as able Continue Diamox Valsartan and Metolazone discontinued Prednisone decreased to 10 mg daily:Plan to taper off of steroids in 4 to 6 weeks as recommended by pulmonology Continue diuretics as per nephrology, cardiology Volume status stable Continue p.o. diuretics, fluid restriction Will get 2 step tomorrow prior to discharge Saturating well on 2 L supplemental oxygen Plan to discharge home on Diamox Mild troponin elevation Likely demand ischemia secondary to hypoxia Chronic hyponatremia Sodium 130 today Monitor sodium levels Vitamin D deficiency Continue vitamin D supplements Abnormal urinalysis Ruled out UTI Urine culture Negative cefepime discontinued DM II HbA1C 12.3 Continue insulin per protocol Monitor BGs Glycemic pharmacy consulted Hypocalcemia: Likely due to vitamin D deficiency Received IV calcium gluconate Monitor Hypokalemia Hypomagnesemia Replete as needed Morbid obesity: BMI 41 Needs counseling Possible sleep apnea Patient refused sleep study as outpatient Depression: Continue citalopram Vitamin B12 deficiency: Continue vitamin B12 supplements. Hypothyroidism: Continue Levothyroxine Hypertension: Continue metoprolol valsartan discontinued Hyperlipidemia: On statin. DVT Px: Lovenox SQ CODE STATUS Full code Admission and Anticipated Discharge Date Admission Date: July 23, 2022 Subjective Patient is seen and examined at bedside Reports having dry mouth No new complaints otherwise Leg edema stable Discussed with nephrology today Denies any chest pain, dyspnea, dizziness, nausea, abdominal pain Review of Systems Review of Systems: All systems reviewed & are unremarkable except as noted in Subjective Physical Exam Physical Exam: Physical Exam: Vitals signs as noted above General Appearance:Morbidly obese, no apparent distress Head: normocephalic, Atraumatic Eyes: normal inspection, EOMI Neck: supple, Trachea midline Respiratory/Chest: Decreased breath sounds, CTA, No accessory muscle use Cardiovascular: S1, S2, No murmur Abdomen/GI:Soft, Non tender, Bowel sounds present Extremities/Musculoskeletal:normal inspection, 2+ B/L LE edema Neurologic/Psych:AAOX3, grossly no focal neurological deficits Skin: normal color, warm Results & Data Results & Data ([facility]) Vital Signs (Past 12 Hours) Vital Signs Temp Pulse Pulse Pulse Resp BP BP 08/04/22 11:49 36.6 C 75 19 109/85 08/04/22 08:00 08/04/22 07:41 63 08/04/22 07:41 08/04/22 09:07 86 20 08/04/22 07:27 36.6 C 64 19 112/72 08/04/22 02:54 36.6 C 58 L 18 102/64 Pulse Ox Pulse Ox O2 Del Method O2 Del Method O2 Flow Rate O2 Flow Rate 08/04/22 11:49 92 Nasal Cannula 2 08/04/22 08:00 93 Nasal Cannula 2 08/04/22 07:41 08/04/22 07:41 Nasal Cannula 2 08/04/22 09:07 93 Nasal Cannula 2 08/04/22 07:27 93 Nasal Cannula 2 08/04/22 02:54 96 Nasal Cannula Laboratory Results [facility] 08/03/22 08/04/22 16:58 07:52 Sodium 127 L 130 L Potassium 3.9 D 3.6 Chloride 84 L 86 L Carbon Dioxide 35 H 37 H BUN 39 H 38 H Creatinine 1.29 H 1.04 Glucose 218 H 161 H Calcium 9.5 9.1
[2022-08-04] MEDS: CARBOHYDRATES FOR HYPOGLYCEMIA PO PRN ×2 (16:26→16:41)
[2022-08-04] MEDS ORDERED: POTASSIUM CHLORIDE CRTAB 20 MEQ TABCR PO ONE (17:23)
[2022-08-05] MEDS: LEVOTHYROXINE SODIUM 88 MCG TABLET PO SCH (06:21)
[2022-08-05 07:34] LABS: BUN Creatinine Ratio 40.4 (10-20); Calcium 8.7 mg/dl (8.5-10.1); Creatinine Clr Calc Pharmacy 75.4 ml/min; Est GFR (African American) 84.6 ml/min; Potassium 4.3 mmol/L (3.5-5.1)
[2022-08-05] MEDS: CITALOPRAM 20 MG TAB PO SCH (08:29)
[2022-08-05] MEDS: acetaZOLAMIDE 500 MG CAPCR PO SCH (08:29)
[2022-08-05] MEDS: MAGNESIUM OXIDE 400 MG TAB PO SCH (08:29)
[2022-08-05] MEDS: CYANOCOBALAMIN (B-12) 500 MCG TABLET PO SCH (08:29)
[2022-08-05] MEDS: ADVANCED PROBIOTIC 1250 MG CAPSULE PO SCH (08:29)
[2022-08-05] MEDS: POTASSIUM CHLORIDE CRTAB 20 MEQ TABCR PO SCH (08:29)
[2022-08-05] MEDS: FUROSEMIDE 80 MG TAB PO SCH (08:29)
[2022-08-05] MEDS: METOPROLOL SUCC 50MG EXT REL TAB PO SCH (08:29)
[2022-08-05] MEDS: ENOXAPARIN INJ 40 MG/0.4 ML SYR SQ SCH (08:30)
[2022-08-05] MEDS: CLOTRIMAZOLE 1% CR 15 GM TUBE TOP SCH (08:30)
[2022-08-05] MEDS: NEOMYCIN/POLYMYX/BACITR OINT 15 GM TUBE EXT SCH (08:31)
[2022-08-05] MEDS: INSULIN ASPART PER UNIT SC SCH ×2 (08:44→12:10)
[2022-08-05] MEDS ORDERED: NovoLIN-N (NPH) PER UNIT CHARGE SQ ONE (09:00)
[2022-08-05] MEDS ORDERED: predniSONE 10 MG TABLET PO SCH (09:00)
--- NOTE | 2022-08-05 12:34 | Hospitalist Progress Note ---
Date of Service August 05, 2022 Assessment & Plan (1) Hypoxia: Plan: Patient is a 57 yr female who presents with worsening shortness of breath, [id number] respiratory failure. Altiz-sb-skgappc respiratory failure with Hypoxia Chronic oxygen dependency--on 3-4 L at baseline Chronic interstitial lung disease--Possible Flare H/O COVID Pulmonary artery hypertension Cor pulmonale Chronic steroid dependence Respiratory failure likely multifactorial: Interstitial lung disease, PAH, Right-sided heart failure Metabolic alkalosis --CT Chest:Cardiomegaly without acute intrathoracic abnormality. Chronic interstitial lung disease with subpleural predominant cysts/honeycombing, subpleural reticulation with groundglass densities and bronchiectasis, right greater than left. The subpleural cystic changes/honeycombing has progressively worsened compared to the 05/06/2021 exam. Mildly improved mediastinal and hilar lymphadenopathy, likely related to the chronic interstitial lung disease. Cardiomegaly with evidence of pulmonary arterial hypertension. Unchanged fusiform dilation of the ascending thoracic aorta, 4.2 cm. --ECHO: EF 60 to 65%. Normal LV chamber size and wall thickness. No segmental left ventricle wall motion abnormality. Flattened septum is consistent with RV pressure/volume overload. D-shaped LV chamber. Grade 1 diastolic dysfunction. Right ventricle is severely dilated. Right ventricular systolic function is severely reduced. Mild aortic regurgitation. Severe tricuspid regurgitation. Severe pulmonary artery hypertension. -- Procalcitonin 0.05 --Blood cultures negative --Urine for Legionella Negative --Nasal MRSA Negative --Continue IV Solu-Medrol>> transition to prednisone taper course --Continue nebs PRN --Received IV Lasix Monitor I's and O's, daily weight, electrolytes Appreciate Pulmonology/Cardiology/Nephrology/Critical Care Input Needs sleep study as outpatient Wean supplemental oxygen as able Continue Diamox Valsartan and Metolazone discontinued Prednisone decreased to 10 mg daily:Plan to taper off of steroids in 4 to 6 weeks as recommended by pulmonology Continue diuretics as per nephrology, cardiology Volume status stable Continue p.o. diuretics, fluid restriction 2 step: 3 L at rest and 4 L with activity which is her baseline Advised to follow-up with cardiology, pulmonology and nephrology upon discharge Mild troponin elevation Likely demand ischemia secondary to hypoxia Chronic hyponatremia Sodium 130 today Monitor sodium levels Vitamin D deficiency Continue vitamin D supplements Abnormal urinalysis Ruled out UTI Urine culture Negative cefepime discontinued DM II HbA1C 12.3 Continue insulin per protocol Monitor BGs Glycemic pharmacy consulted Hypocalcemia: Hypokalemia Hypomagnesemia Replete as needed Morbid obesity: BMI 41 Needs counseling Possible sleep apnea Patient refused sleep study as outpatient Depression: Continue citalopram Vitamin B12 deficiency: Continue vitamin B12 supplements. Hypothyroidism: Continue Levothyroxine Hypertension: Continue metoprolol valsartan discontinued Hyperlipidemia: On statin. DVT Px: Lovenox SQ CODE STATUS Full code Disposition Home with home health Admission and Anticipated Discharge Date Admission Date: July 23, 2022 Subjective Patient is seen and examined at bedside Feels better Discussed with nephrology today Denies any chest pain, dyspnea, dizziness, nausea, abdominal pain Had 2 step earlier today Plan to discharge home Review of Systems Review of Systems: All systems reviewed & are unremarkable except as noted in Subjective Physical Exam Physical Exam: Physical Exam: Vitals signs as noted above General Appearance:Morbidly obese, no apparent distress Head: normocephalic, Atraumatic Eyes: normal inspection, EOMI Neck: supple, Trachea midline Respiratory/Chest: Decreased breath sounds, CTA, No accessory muscle use Cardiovascular: S1, S2, No murmur Abdomen/GI:Soft, Non tender, Bowel sounds present Extremities/Musculoskeletal:normal inspection, 2+ B/L LE edema Neurologic/Psych:AAOX3, grossly no focal neurological deficits Skin: normal color, warm Results & Data Results & Data ([facility]) Vital Signs (Past 12 Hours) Vital Signs Temp Pulse Pulse Pulse Pulse Pulse Pulse 08/05/22 11:32 36.8 C 75 08/05/22 11:04 36.8 C 08/05/22 10:21 77 78 87 87 08/05/22 07:38 77 08/05/22 07:38 08/05/22 07:38 08/05/22 06:49 36.5 C 08/05/22 03:41 36.7 C 08/05/22 01:57 64 Pulse Pulse Pulse Resp Resp Resp Resp 08/05/22 11:32 87 18 08/05/22 11:04 87 18 08/05/22 10:21 71 76 20 20 22 08/05/22 07:38 08/05/22 07:38 08/05/22 07:38 08/05/22 06:49 67 20 08/05/22 03:41 68 18 12/23/22 01:57 Resp Resp Resp BP BP Pulse Ox Pulse Ox 08/05/22 11:32 100/74 109/61 92 08/05/22 11:04 100/74 92 08/05/22 10:21 22 20 20 84 L 08/05/22 07:38 08/05/22 07:38 08/05/22 07:38 08/05/22 06:49 109/61 94 08/05/22 03:41 107/68 93 08/05/22 01:57 Pulse Ox Pulse Ox Pulse Ox Pulse Ox Pulse Ox Pulse Ox O2 Del Method 08/05/22 11:32 08/05/22 11:04 Nasal Cannula 08/05/22 10:21 91 90 87 L 96 81 L 08/05/22 07:38 08/05/22 07:38 Nasal Cannula 08/05/22 07:38 91 08/05/22 06:49 Nasal Cannula 08/05/22 03:41 Nasal Cannula 08/05/22 01:57 O2 Del Method O2 Flow Rate O2 Flow Rate O2 Flow Rate O2 Flow Rate O2 Flow Rate O2 Flow Rate 08/05/22 11:32 08/05/22 11:04 3 08/05/22 10:21 2 3 4 3 3 08/05/22 07:38 08/05/22 07:38 4 08/05/22 07:38 Nasal Cannula 08/05/22 06:49 4.0 08/05/22 03:41 4.0 08/05/22 01:57 O2 Flow Rate 08/05/22 11:32 08/05/22 11:04 08/05/22 10:21 08/05/22 07:38 08/05/22 07:38 08/05/22 07:38 4 08/05/22 06:49 08/05/22 03:41 08/05/22 01:57 Laboratory Results [facility] 08/05/22 07:02 Sodium 130 L Potassium 4.3 Chloride 94 L Carbon Dioxide 30 BUN 36 H Creatinine 0.89 Glucose 183 H Calcium 8.7
[2022-08-05] MEDS ORDERED: ALBUTEROL 0.083% NEBU SOLN 3 ML VIAL NEB PRN (12:38)
--- NOTE | 2022-08-05 12:49 | Discharge Summary ---
Date of Service August 05, 2022 Admission HPI Per Admitting Provider CHIEF COMPLAINT: Shortness of breath. HISTORY OF PRESENT ILLNESS: This is a 57-year-old female with past medical history significant for diabetes, hyperlipidemia, hypothyroidism, history of hyponatremia, history of interstitial lung disease, pulmonary fibrosis post- COVID, chronic respiratory failure on home oxygen 3-4 liters, hypertension, pulmonary hypertension, mild aortic regurgitation, obesity, vitamin B12 deficiency, immunosuppression due to chronic steroid use, who presents with ongoing shortness of breath. This is going on for some time, but the last few days it got worse. She saw pulmonary on 05/27/2022 and her prednisone was increased from 10 to 15 mg. She used to be on Bactrim prophylaxis until April, but stopped because her prednisone dose was less than 20. When she saw pulmonary, they increased Lasix 20 mg bid for for 3 days for possible right heart failure, normally she takes 20 mg daily, but it did not help her lower extremity swelling. Her PCP stopped her amlodipine, which seems to help the lower extremity swelling. Over the last 3-4 days, she is getting more short of breath. She has a cough for the last few weeks, whitish phlegm.Minimal exertion, making her short of breath. When she exerts, she gets chest pain since COVID. Today,on home oxygen, she was saturating in low 80s and she was brought in here. Initially, she was placed on nonrebreather, currently on BiPAP, she is saturating okay, able to give her history. Speaking in full sentences, slightly tachypneic. Sister in the room, sister lives across her house and the patient lives with her son and she ambulates without walker. She denies any fever or chills. No headache, no blurred visions, no earache, no runny nose, no sore throat, no difficulty swallowing. Appetite is not that great, but she drinks water okay. No chest pain currently. No nausea, no vomiting, no abdominal pain. She has alternating diarrhea and constipation, no blood in the stools or black stools. Normal micturition. No hematuria. Admission Exam Per Admitting Provider PHYSICAL EXAMINATION: GENERAL: The patient is morbidly obese. Slightly tachypneic. VITAL SIGNS: Temperature 36.4, pulse 84, respiratory rate 26, blood pressure 136/101, oxygen 91% on BiPAP. HEENT: Pupils equal, round and reactive to light. Atraumatic. NECK: No ____, no JVD. No neck masses seen. CARDIOVASCULAR: S1 and S2 heard. Regular rate and rhythm. No murmur, no gallop. RESPIRATORY SYSTEM: Normal AP diameter. Mild tachypnea. Bibasilar coarse crackles heard. No wheezing. ABDOMEN: Soft, bowel sounds present, nontender, no distention. CENTRAL NERVOUS SYSTEM: Alert and oriented. No facial droop seen. Speech is clear. Insight is okay. Obeys simple commands. Moves extremities. EXTREMITIES: Bilateral lower extremity gross edema seen. No erythema seen. Principal Diagnosis [id number] respiratory failure with Hypoxia Post COVID fibrotic lung disease Pulmonary artery hypertension Cor pulmonale Chronic steroid dependence Metabolic alkalosis Discharge Data Allergies Allergy/AdvReac Type Severity Reaction Status Date / Time No Known Allergies Allergy Verified 07/23/22 21:15 Consultations 07/23/22 21:44 ED Decision to Admit Stat 07/24/22 08:00 Consult Cardiology Routine Consult Pulmonology Routine 07/27/22 09:15 Consult Nephrology Routine 07/28/22 13:25 Consult Stone Setter Routine Procedures Performed Laboratory Results WBC 10.43 K/ul (4.8-10.8) 07/31/22 06:32 RBC 5.38 M/uL (3.93-5.22) H 07/31/22 06:32 Hgb 14.9 g/dl (12.0-16.0) 07/31/22 06:32 Hct 44.1 % (34.1-44.9) 07/31/22 06:32 MCV 82.0 fL (80.0-100.0) 07/31/22 06:32 MCH 27.7 pg (25.0-34.0) 07/31/22 06:32 MCHC 33.8 g/dL (32.0-36.0) 07/31/22 06:32 RDW Std Deviation 49.1 fL (36.4-46.3) H 07/31/22 06:32 RDW Coeff of Lulu 17.5 % (11.5-14.5) H 07/31/22 06:32 Plt Count 267 K/uL (130-400) 07/31/22 06:32 MPV 10.7 fL (9.4-12.3) 07/31/22 06:32 Immature Gran % (Auto) 1.4 % 07/31/22 06:32 Neut % (Auto) 60.7 % 07/31/22 06:32 Lymph % (Auto) 25.6 % 07/31/22 06:32 [place] % (Auto) 10.3 % 07/31/22 06:32 Eos % (Auto) 1.6 % 07/31/22 06:32 Baso % (Auto) 0.4 % 07/31/22 06:32 Neut # (Auto) 6.33 K/uL (1.4-6.5) 07/31/22 06:32 Lymph # (Auto) 2.67 K/uL (1.2-3.4) 07/31/22 06:32 [place] # (Auto) 1.07 K/uL (0.24-0.82) H 07/31/22 06:32 Eos # (Auto) 0.17 K/uL (0-0.50) 07/31/22 06:32 Baso # (Auto) 0.04 K/uL (0-0.2) 07/31/22 06:32 Immature Gran # (Auto) 0.15 K/uL (0.00-0.02) H 07/31/22 06:32 Absolute Nucleated RBC 0.02 K/uL (0-0) H 07/31/22 06:32 Nucleated RBC % (auto) 0.2 % 07/31/22 06:32 PT 12.9 Seconds (9.0-12.0) H 07/24/22 00:32 INR 1.2 (0.9-1.1) H 07/24/22 00:32 APTT 23.8 Seconds (21.0-31.0) 07/24/22 00:32 PTT Ratio 0.9 07/24/22 00:32 ABG pH 7.46 (7.35-7.45) H 07/27/22 09:34 ABG pCO2 57 mmHg (35-46) H 07/27/22 09:34 ABG pO2 59 mmHg (80-95) L 07/27/22 09:34 ABG HCO3 41 mmol/L (19-24) H 07/27/22 09:34 ABG O2 Saturation 90.5 % (90-95) 07/27/22 09:34 ABG Base Excess 14.0 mEq/L (-9-1.8) H 07/27/22 09:34 Valentin Test Pos (Pos) 07/27/22 09:34 VBG pH 7.45 (7.36-7.41) H 07/23/22 20:22 VBG pCO2 48 mmHg (38-50) 07/23/22 20:22 VBG pO2 49 mmHg 07/23/22 20:22 VBG HCO3 33 mmol/L 07/23/22 20:22 VBG O2 Saturation 81.5 % 07/23/22 20:22 VBG Base Excess 8.1 mEq/L 07/23/22 20:22 Oxygen Given 5 L 07/27/22 09:34 Sodium 130 mmol/L (136-145) L 08/05/22 07:02 Potassium 4.3 mmol/L (3.5-5.1) 08/05/22 07:02 Chloride 94 mmol/L (98-107) L 08/05/22 07:02 Carbon Dioxide 30 mmol/L (21-32) 08/05/22 07:02 Anion Gap 6 (3-11) 08/05/22 07:02 BUN 36 mg/dl (6-23) H 08/05/22 07:02 Creatinine 0.89 mg/dl (0.6-1.2) 08/05/22 07:02 Est Cr Clr Drug Dosing 75.4 ml/min 08/05/22 07:02 Est GFR ( Amer) 84.6 ml/min 08/05/22 07:02 Est GFR (Non-Af Amer) 73.0 ml/min 08/05/22 07:02 BUN/Creatinine Ratio 40.4 (10-20) H 08/05/22 07:02 Glucose 183 mg/dl (70-99(Fasting)) H 08/05/22 07:02 POC Glucose 277 mg/dl (70-99) H 08/05/22 11:24 Estimat Average Glucose 306 mg/dl 07/24/22 06:06 Hemoglobin A1c 12.3 % (4.5-5.6) H 07/24/22 06:06 Osmolality 293 mOsm/kg (280-300) 07/24/22 06:07 Calcium 8.7 mg/dl (8.5-10.1) 08/05/22 07:02 Phosphorus 5.4 mg/dl (2.5-4.9) H 07/31/22 06:32 Magnesium 2.1 mg/dl (1.7-2.4) 08/04/22 07:52 Total Bilirubin 1.1 mg/dl (0.2-1.0) H 07/23/22 19:54 AST 21 U/L (13-39) 07/23/22 19:54 ALT 25 U/L (7-52) 07/23/22 19:54 Alkaline Phosphatase 96 U/L (34-104) 07/23/22 19:54 Troponin I High Sens 50.6 pg/ml (0-14) H* 07/24/22 17:03 B-Natriuretic Peptide 1966 pg/ml (0-100) H 07/23/22 19:54 Total Protein 6.2 gm/dl (6.0-8.3) 07/23/22 19:54 Albumin 3.6 gm/dl (3.4-5.0) 07/23/22 19:54 Globulin 2.6 gm/dl (2.5-4.0) 07/23/22 19:54 Albumin/Globulin Ratio 1.4 (0.9-2) 07/23/22 19:54 25-OH Vitamin D Total 9.0 ng/ml (30-100) L 07/24/22 06:07 Procalcitonin 0.05 ng/ml (0-0.5) 07/24/22 06:07 Urine Color Yellow 07/24/22 02:36 Urine Appearance Clear (Clear) 07/24/22 02:36 Urine pH 5.5 (4.5-7.5) 07/24/22 02:36 Ur Specific [place] 1.011 (1.000-1.030) 07/24/22 02:36 Urine Protein 3+ (Negative) H 07/24/22 02:36 Urine Glucose (UA) 2+ (Negative) H 07/24/22 02:36 Urine Ketones Negative (Negative) 07/24/22 02:36 Urine Blood Trace (Negative) H 07/24/22 02:36 Urine Nitrite Positive (Negative) A 07/24/22 02:36 Urine Bilirubin Negative (Negative) 07/24/22 02:36 Urine Urobilinogen Negative (Negative) 07/24/22 02:36 Ur Leukocyte Esterase Negative (Negative) 07/24/22 02:36 Urine WBC (Auto) 1-5 /hpf (0-5) 07/24/22 02:36 Urine RBC (Auto) 0-4 /hpf (0-4) 07/24/22 02:36 U Hyaline Cast (Auto) 0 /lpf (0-5) 07/24/22 02:36 U Epithel Cells (Auto) 20-30 /lpf (0-5) H 07/24/22 02:36 Urine Bacteria (Auto) 1+ (Negative) H 07/24/22 02:36 Urine Osmolality 321 mOsm/kg (500-800) L 07/24/22 02:36 Ur Random Sodium 96 mmol/L 07/24/22 02:36 Nasal Screen MRSA (PCR) Negative (Negative) 07/24/22 Unknown Adenovirus (PCR) Not Detected (NotDetected) 07/23/22 19:58 B. pertussis DNA (PCR) Not Detected (NotDetected) 07/23/22 19:58 B.parapertussis DNA PCR Not Detected (NotDetected) 07/23/22 19:58 C. pneumoniae DNA (PCR) Not Detected (NotDetected) 07/23/22 19:58 Coronavirus OC43 (PCR) Not Detected (NotDetected) 07/23/22 19:58 Coronavirus HKU1 (PCR) Not Detected (NotDetected) 07/23/22 19:58 Coronavirus 229E (PCR) Not Detected (NotDetected) 07/23/22 19:58 SARS-CoV-2 (PCR) Not Detected (NotDetected) 07/23/22 19:58 Coronavirus NL63 (PCR) Not Detected (NotDetected) 07/23/22 19:58 Human Metapneumovir PCR Not Detected (NotDetected) 07/23/22 19:58 Influenza Type A (PCR) Not Detected (NotDetected) 07/23/22 19:58 Influenza Type B (PCR) Not Detected (NotDetected) 07/23/22 19:58 Urine Legionella Ag SEE NOTE 07/24/22 Unknown M. pneumoniae (PCR) Not Detected (NotDetected) 07/23/22 19:58 Parainfluenza 1 (PCR) Not Detected (NotDetected) 07/23/22 19:58 Parainfluenza 2 (PCR) Not Detected (NotDetected) 07/23/22 19:58 Parainfluenza 3 (PCR) Not Detected (NotDetected) 07/23/22 19:58 Parainfluenza 4 (PCR) Not Detected (NotDetected) 07/23/22 19:58 RSV (PCR) Not Detected (NotDetected) 07/23/22 19:58 Entero/Rhino (PCR) Not Detected (NotDetected) 07/23/22 19:58 Impressions Chest X-Ray 07/23/22 19:43 XR chest 1V portable CLINICAL HISTORY: Dyspnea COMPARISON STUDY: Chest radiograph and chest CT May 06, 2021. FINDINGS: No pneumothorax or pleural effusion is present. Interstitial thickening is similar to prior chest radiograph and chest CT. Cardiomegaly is unchanged. Upper mediastinal widening is also unchanged. No superimposed consolidation is identified. IMPRESSION: 1. No significant change in appearance of the chest. Interstitial thickening which is chronic and favors pulmonary fibrosis. 2. Stable cardiomegaly and upper mediastinal widening. ACT 112: Negative or not required by law. Electronically signed by: Matt King M.D. 07/23/2022 8:[address] 07/24/22 09:23 CT chest diagnostic wo con CT DOSE: 891.92 mGy.cm CLINICAL HISTORY: 57 years-old Female with post covid fibrosis. Chronic shortness of breath with prior Covid pneumonia TECHNIQUE: Multiaxial CT images of the chest were performed without contrast. A dose lowering technique was utilized adhering to the principles of ALARA. COMPARISON: Chest radiograph 07/23/2022, CTA chest 05/06/2021 FINDINGS: No thyroid nodule identified. Mediastinal and hilar lymphadenopathy redemonstrated, mildly improved from prior study. Paratracheal lymph nodes measure up to approximately 1.3 cm. Moderate cardiomegaly with extensive coronary artery calcifications. Trace pericardial effusion. Mild fusiform dilation of the ascending thoracic aorta measuring 4.2 cm is unchanged. Dilated pulmonary artery, 4.3 cm. No pneumothorax, pleural effusion or overt pulmonary edema. Mild tracheobronchial secretions. Subpleural cystic changes are most pronounced within the right lung apex and right lung base. Traction bronchiectasis with subpleural reticulation with intermixed groundglass densities. There is improved aeration of the lungs compared to the prior study. No suspicious pulmonary nodules or masses are identified. Cystic changes/bronchiectasis have progressed from the prior study. Nonspecific bilateral perinephric stranding. Hepatomegaly with hepatic steatosis. Mild generalized body wall edema. Probable sebaceous cyst of the upper back to the midline, 1.4 cm. No acute fracture. Degenerative changes of the shoulders and spine. IMPRESSION: 1. Cardiomegaly without acute intrathoracic abnormality. 2. Chronic interstitial lung disease with subpleural predominant cysts/honeycombing, subpleural reticulation with groundglass densities and bronchiectasis, right greater than left. The subpleural cystic changes/honeycombing has progressively worsened compared to the 05/06/2021 exam. 3. Mildly improved mediastinal and hilar lymphadenopathy, likely related to the chronic interstitial lung disease. 4. Cardiomegaly with evidence of pulmonary arterial hypertension. 5. Unchanged fusiform dilation of the ascending thoracic aorta, 4.2 cm. ACT 112: Negative or not required by law. Electronically signed by: Ran Morales M.D. 07/24/2022 11:31 AM Ordered Studies 07/24/22 09:23 CT chest diagnostic wo con Urgent Diabetes Follow up Diabetes Follow-up Needed for HgbA1c >9% Hospital Course (1) Hypoxia: Patient is a 57 yr female who presents with worsening shortness of breath, cvhnu-os-[id number] respiratory failure. Zxhad-rq-ttsmozw respiratory failure with Hypoxia Chronic oxygen dependency--on 3-4 L at baseline Chronic interstitial lung disease--Possible Flare H/O COVID Pulmonary artery hypertension Cor pulmonale Chronic steroid dependence Respiratory failure likely multifactorial: Interstitial lung disease, PAH, Right-sided heart failure Metabolic alkalosis --CT Chest:Cardiomegaly without acute intrathoracic abnormality. Chronic interstitial lung disease with subpleural predominant cysts/honeycombing, subpleural reticulation with groundglass densities and bronchiectasis, right greater than left. The subpleural cystic changes/honeycombing has progressively worsened compared to the 05/06/2021 exam. Mildly improved mediastinal and hilar lymphadenopathy, likely related to the chronic interstitial lung disease. Cardiomegaly with evidence of pulmonary arterial hypertension. Unchanged fus iform dilation of the ascending thoracic aorta, 4.2 cm. --ECHO: EF 60 to 65%. Normal LV chamber size and wall thickness. No segmental left ventricle wall motion abnormality. Flattened septum is consistent with RV pressure/volume overload. D-shaped LV chamber. Grade 1 diastolic dysfunction. Right ventricle is severely dilated. Right ventricular systolic function is severely reduced. Mild aortic regurgitation. Severe tricuspid regurgitation. Severe pulmonary artery hypertension. -- Procalcitonin 0.05 --Blood cultures negative --Urine for Legionella Negative --Nasal MRSA Negative --Continue IV Solu-Medrol>> transition to prednisone taper course --Continue nebs PRN --Received IV Lasix Monitor I's and O's, daily weight, electrolytes Appreciate Pulmonology/Cardiology/Nephrology/Critical Care Input Needs sleep study as outpatient Wean supplemental oxygen as able Continue Diamox Valsartan and Metolazone discontinued Prednisone decreased to 10 mg daily:Plan to taper off of steroids in 4 to 6 weeks as recommended by pulmonology Continue diuretics as per nephrology, cardiology Volume status stable Continue p.o. diuretics, fluid restriction 2 step: 3 L at rest and 4 L with activity which is her baseline Advised to follow-up with cardiology, pulmonology and nephrology upon discharge Mild troponin elevation Likely demand ischemia secondary to hypoxia Chronic hyponatremia Sodium 130 today Monitor sodium levels Vitamin D deficiency Continue vitamin D supplements Abnormal urinalysis Ruled out UTI Urine culture Negative cefepime discontinued DM II HbA1C 12.3 Continue insulin per protocol Monitor BGs Glycemic pharmacy consulted Hypocalcemia: Hypokalemia Hypomagnesemia Replete as needed Morbid obesity: BMI 41 Needs counseling Possible sleep apnea Patient refused sleep study as outpatient Depression: Continue citalopram Vitamin B12 deficiency: Continue vitamin B12 supplements. Hypothyroidism: Continue Levothyroxine Hypertension: Continue metoprolol valsartan discontinued Hyperlipidemia: On statin. DVT Px: Lovenox SQ CODE STATUS Full code Disposition Home with home health Total Time Total Time Spent Total Time Spent (In Minutes): 55 minutes Discharge Plan Discharge Items Patient Disposition: Home - Home Health Services Reason For Visit: SOB Discharge Diagnosis: Pjyqv-et-qvnszdt respiratory failure with Hypoxia Post COVID fibrotic lung disease Pulmonary artery hypertension Cor pulmonale Chronic steroid dependence Metabolic alkalosis Activity: Per Instructions section Exercise/Sports: Wait until after follow-up appointment Non-emergency contact: Primary Care Provider, Order Administrator, Bell Cleaner and Signals Intelligence Superintendent Call non-emergency contact if: you have any medication questions, your symptoms worsen, your pain is concerning for you and you have a fever Follow-up/Referrals: Bandar Jc MD [Physician] - 08/18/22 8:45 am Louise Germain MD, PhD [Physician] - (Date & Time 08/24/2022 1:00 PM Provider Louise Germain MD Department Nephrology, [facility] ) Yohan Bean MD [Primary Care Provider] - (Date & Time 08/09/2022 1:00 PM Provider Stephany Roger MD Department General Internal Medicine [facility] ) John Engle DO [Order Administrator] - (Date & Time 08/23/2022 1:00 PM Provider John Engle DO Department Cardiology [facility] ) Diet: Carb Consistent or DM2, Heart Healthy and Low Sodium (2gm) Fluids: 1800ml (7 cups) Addtl Attending Provider Instructions: Follow-up with your primary care physician Dr. Bean, gusset edger Dr. Engle, medical claims analyst Dr. Varela and forming machine upkeep mechanic helper as scheduled. Consider following with pulmonary hypertension clinic as advised. -- Continue prednisone 10 mg daily until follow-up with your forming machine upkeep mechanic helper. Further recommendations as per your forming machine upkeep mechanic helper. --Get blood test weekly (basic metabolic panel) as recommended by your medical claims analyst. -- Discuss with your primary care physician regarding adjustment of your insulin dose and other diabetic medications as needed. Monitor your blood glucose le vels regularly as advised. Your medications need to be adjusted based on your blood glucose levels. --- Use oxygen via nasal cannula 3 L at rest and 4 L with activity. Seek immediate medical attention if your symptoms reoccur or worsen Please take all medications as instructed on discharge list below. Please call if you have any questions or problems. You can reach a [facility] ospitalist on duty at [facility] 24 hours a day by calling [phone] Pending Studies at Discharge: No Stand-Alone Forms: [facility], Smoking Cessation Medications and DC Order Prescriptions: New (DME) blood-glucose meter [OneTouch Verio Meter] Misc See Rx Instructions .Route Qty: 1 0RF Rx Instructions: As directed (DME) OneTouch Verio test strips Strip See Rx Instructions .Route Qty: 100 1RF Rx Instructions: As directed (DME) lancets [OneTouch Delica Lancets] [address] [facility] See Rx Instructions .Route Qty: 100 1RF Rx Instructions: As directed albuterol sulfate 2.5 mg /3 mL (0.083 %) Solution For Nebulization 2.5 mg NEB Q6R PRN (Reason: shortness of breath or wheezing) Qty: 90 1RF potassium chloride 20 mEq Tablet,Er Particles/Crystals 40 meq PO BID 30 Days Qty: 120 0RF furosemide 80 mg Tablet 80 mg PO BID17 Qty: 60 0RF acetazolamide 500 mg Capsule, Extended Release 1,000 mg PO BID 30 Days Qty: 120 0RF magnesium oxide 400 mg (241.3 mg magnesium) Tablet 400 mg PO BID Qty: 60 0RF insulin glargine [Lantus Solostar U-100 Insulin] 100 unit/mL (3 mL) insulin pen 10 unit subcut DAILY Qty: 15 0RF Continued citalopram 10 mg tablet 10 mg PO QAM Rx Instructions: PER PT "NOT STARTED YET". cyanocobalamin (vitamin B-12) [Vitamin B-12] 1,000 mcg Tablet 1,000 mcg PO DAILY milk thistle 150 mg Capsule 150 mg PO DAILY Rx Instructions: give with meal/snack benzonatate 100 mg capsule 100 mg PO TID PRN (Reason: Cough) Rx Instructions: PER PT "NOT STARTED YET". codeine-guaifenesin [Guaifenesin AC] 10-100 mg/5 mL Liquid 10 ml PO Q6H PRN (Reason: Cough) albuterol sulfate 90 mcg/actuation Hfa Aerosol Inhaler 2 puff INHALATION Q6H PRN (Reason: Wheezing) clotrimazole 1 % cream 1 applic TOPICAL BID Rx Instructions: STARTED 07/19/22 FOR 14 DAYS. apple cider vinegar 500 mg Tablet 500 mg PO DAILY omega 6-nzl-otn-fish oil [Fish Oil] 1,000 mg (120 mg-180 mg) Capsule 1 cap PO DAILY Jardiance 10 mg Tablet 10 mg PO QAM Rx Instructions: Pt never started due to high cost Probiotic Acidophilus Biobeads 12.9 mg (2 billion cell) Tablet,Delayed Release (Dr/Ec) 1 tab PO DAILY metoprolol succinate 100 mg tablet extended release 24 hr 100 mg PO QAM levothyroxine 88 mcg tablet 88 mcg PO DAILYBB metformin 500 mg tablet extended release 24 hr 2,000 mg PO QDD glipizide 10 mg tablet extended release 24hr 10 mg PO QDD Rx Instructions: take 30 min before a meal rosuvastatin 5 mg tablet 5 mg PO 2XWK Rx Instructions: TAKES ON MONDAY AND WEDNESDAYS. (DME) Oxygen Home Liters Per Minute See Rx Instructions .Route Qty: 1 0RF Rx Instructions: 2LPM continuously Changed prednisone 10 mg tablet 10 mg PO DAILY Qty: 30 0RF Discontinued valsartan 320 mg Tablet 320 mg PO DAILY furosemide [Lasix] 20 mg Tablet 20 mg PO DAILY cefdinir 300 mg capsule 300 mg PO BID Qty: 10 0RF Rx Instructions: ON [facility] MED LIST, NOT ON EXT MED HX. Discharge Orders: Discharge Order (Routine); Ordered 08/05/22 Ordered By: Ambrose Abbott Admission Data Admit Date/Time: 07/23/22 22:46 Attending Provider: Ambrose Abbott Admit Provider: Brenden Alegria Primary Care Provider: Yohan Bean Other Providers: Amarjit Rodriguez [facility] ; [facility] ; Brenden Alegria ; Juan Alberto Rae ; Bayron Almanzar ; Liborio Kumar Other Interventions: Discharge Summary Assessment (RN) Last Done: 08/05/22 11:32
--- NOTE | 2022-08-05 13:09 | Pharmacy Report ---
Pharmacy Glycemic Short Note 2 - Date of Service August 05, 2022 - Glycemic Short BSG Results (Last 24 hours): 08/04/22 08/04/22 08/04/22 14:22 16:23 16:24 Glucose POC Glucose 125 H 54 L* 56 L* 08/04/22 08/04/22 08/04/22 16:41 16:54 20:54 Glucose POC Glucose 67 L* 80 180 H 08/05/22 08/05/22 08/05/22 03:48 07:02 07:33 Glucose 183 H POC Glucose 143 H 196 H 08/05/22 11:24 Glucose POC Glucose 277 H OUTPATIENT ANTIDIABETIC REGIMEN: * Metformin 2 gm PO daily * Glipizide 10 mg PO daily * HbA1c: 12.3% (07/24/22), could be affected by outpatient steroid use ASSESSMENT: 08/05: * Prednisone was not given in AM yesterday with subsequent hypoglycemia with dinner. Prednisone was restarted this morning therefore 15 units of NPH was given with breakfast. * Novolog parameters were loosened yesterday when prednisone was stopped, will tighten slightly again this morning since steroid restarted. 08/04: * Tightened breakfast carb ratio and increased NPH 20% with prednisone 10 mg * Will continue previous novolog throughout the day * Monitor for additional changes 08/03 * Patient with acceptable BSGs with exception of lunch BSG which remains elevated, likely d/t steroid. * Conservatively increased NPH this morning and tightened novolog with breakfast. Lunch BSG still elevated today, will tighten carb ratio again tomorrow * Gave modified correction with lunch today as patient did not eat immediately after and patient had already eaten (post-prandial would be higher). 08/01: * BSGs [phone]/dL the last 24h. 1630 BSG yesterday was not corrected. Pt received 8 units of basal and 18 units of bolus insulin yesterday. * Continues on prednisone 10mg PO daily and tolerating diet. * NPH 8 units today, Novolog parameters tightened with meals. 07/30: * Patient received total of 53 units of insulin yesterday, of which 15 units were NPH * Fasting low this AM 56 mg/dL - will decrease NPH dose in half for this morning as unclear what is contributing to lower fasting - no novolog given at HS time 07/29: * Ale never require pressor/inotropic support upon transfer to the ICU. Str essors are stable at this point and will be downgraded from ICU. * Remains on Prednisone 20 mg PO daily. Continue with NPH to cover for steroid- induced hyperglycemia. Of note, steroids are set to discontinue after tomorrow's dose (07/30). Unsure of further taper. * RN did not check a POC BSG this AM and utilized the serum BSG of 87 mg/dL from ~0500 for unknown reasons. Do not believe that this BSG was truly communications representative of what the patient truly was. No AM Novolog was given and not documented whether the patient ate breakfast or not. * Lunchtime BSG was 251 mg/dL. Do not feel comfortable making any changes to insulin regimen at today given uncertainty of AM and lunchtime BSGs. 07/28: * Stressors stable * AM fasting BSG still below goal range but not hypoglycemic and is trending up from yesterday - no change to NPH * Post-prandial BSG's elevated. Will tighten Novolog parameters AC but leave looser HS 07/27: * This morning, the patient experienced another episode of hypoglycemia ( BSG 67 mg/dL). This may be due to overcorrection of previous nighttime BSG (267 mg/dL). * HS correction factor will be loosened to prevent opportunity for overcorrection of nightime BSG and subsequent hypoglycemic episodes. * Mealtime carb coverage will be tightened in observance of elevated postprandial BSG's * Will continue NPH 15 units daily alongside of prednisone 20mg daily to match pharmacokinetic peak. Will continue to avoid Lantus use due to low fasting BSG's. PLAN FOR INPATIENT GLYCEMIC CONTROL: * Hold outpatient oral diabetes medications * Basal insulin * NPH 15 SC daily, while on prednisone 10 mg daily * Bolus insulin * NovoLog per scale ACHS or Q6hrs while NPO * Goal Range: Low 110 mg/dL - High 140 mg/dL * Correction Factor: 25 mg/dL/unit with breakfast, lunch and dinner; 30 mg/dL/unit at HS * Carb ratio: 6 g CHO/unit AC; -- g CHO/unit at HS
== END 2022-08-05 16:35 | disposition home health service (06) | DRG 189 ==
LOC: ED 19:24 → SUATTDRO 22:46 → 2S 22:46 → 1E 07-28 12:52 → 2E 07-29 22:33
DX: E53.8 Deficiency of other specified B group vitamins; J96.21 Acute and chronic respiratory failure with hypoxia; E87.6 Hypokalemia; E87.8 Other disorders of electrolyte and fluid balance, not elsewhere classified; U09.9 Post COVID-19 condition, unspecified; I50.810 Right heart failure, unspecified; Z99.81 Dependence on supplemental oxygen; G47.30 Sleep apnea, unspecified; E66.01 Morbid (severe) obesity due to excess calories; E87.1 Hypo-osmolality and hyponatremia; F32.A Depression, unspecified; E03.9 Hypothyroidism, unspecified; J84.9 Interstitial pulmonary disease, unspecified; E11.65 Type 2 diabetes mellitus with hyperglycemia; Z79.52 Long term (current) use of systemic steroids; Z68.41 Body mass index [BMI] 40.0-44.9, adult; Z79.84 Long term (current) use of oral hypoglycemic drugs; E87.3 Alkalosis; I27.21 Secondary pulmonary arterial hypertension; I24.8 Other forms of acute ischemic heart disease; E83.51 Hypocalcemia; E83.42 Hypomagnesemia; E78.5 Hyperlipidemia, unspecified; I11.0 Hypertensive heart disease with heart failure; I27.81 Cor pulmonale (chronic)

== ENCOUNTER 2022-08-16 21:56 | Inpatient (IN) ==
--- NOTE | 2022-08-16 22:18 | Emergency Department Note ---
History of Present Illness General Chief complaint: Shortness of Breath/Dyspnea Time Seen by Provider: 08/16/22 22:16 History of Present Illness This 57-year-old female patient presents to the emergency department via EMS for evaluation of shortness of breath. Symptoms started earlier today. She was seen by EMS earlier, but did not come by ambulance. Tonight the symptoms became worse and she called EMS again. She was 80% on home O2 of 3 L by nasal cannula. They increased her oxygen to 6 L by nasal cannula, but her O2 only increased to 87%. The patient was then placed on a 15 L nonrebreather and given 1 DuoNeb treatment in route with only minimal improvement. She states that at home even with sitting still she will drop down to 85% even on her oxygen. Has been having diarrhea as well so she doesn't want to eat. Has not really been eating much. Follows 1800 ml restriction for her fluid intake. She has been urinating a lot recently, but denies any other urinary symptoms. Feels very weak at home and having trouble getting up and doing anything. She denies any chest pain, fever, or URI symptoms. She has a chronic cough from her interstitial lung disease secondary from COVID and follows with pulmonology. No change in her cough recently. However, she is much more SOB and weak than usual. Denies any recent long car or plane rides. Denies any recent injury, trauma, or surgery. No personal or family history of blood clots or bleeding disorders. She is not on any hormonal medications. She was just discharged on 08/05/22 after being admitted for similar symptoms. Home Medications Medication Instructions Recorded Confirmed Type glipizide 10 mg tablet, extended 10 mg PO QDD 05/06/21 08/17/22 History release 24 hr levothyroxine 88 mcg tablet 88 mcg PO DAILYBB 05/06/21 08/17/22 History metformin 500 mg tablet,extended 2,000 mg PO QDD 05/06/21 08/17/22 History release 24 hr metoprolol succinate 100 mg 100 mg PO QAM 05/06/21 08/17/22 History tablet,extended release 24 hr rosuvastatin 5 mg tablet 5 mg PO 2XWK 05/06/21 08/17/22 History Oxygen Home #1 ea 05/08/21 08/11/22 Rx L.acidoph-L.rhamn-B.bifidum-B.long 1 tab PO DAILY 07/23/22 08/17/22 History 12.9 mg (2 billion cell) tablet, (Probiotic Acidophilus Jacek) albuterol sulfate 90 mcg/actuation 2 puff inhalation Q6H PRN Wheezing 07/23/22 08/17/22 History aerosol inhaler benzonatate 100 mg capsule 100 mg PO TID PRN Cough 07/23/22 08/17/22 History citalopram 10 mg tablet 10 mg PO QAM 07/23/22 08/17/22 History codeine 10 mg-guaifenesin 100 mg/5 10 ml PO Q6H PRN Cough 07/23/22 08/17/22 Hist ory mL oral liquid (Guaifenesin AC) cyanocobalamin (vitamin B-12) 1,000 mcg PO DAILY 07/23/22 08/17/22 History 1,000 mcg tablet (Vitamin B-12) blood sugar diagnostic (OneTouch #100 ea 08/04/22 08/11/22 Rx Verio test strips) blood-glucose meter (OneTouch #1 ea 08/04/22 08/11/22 Rx Verio Meter) lancets 33 gauge (OneTouch Delica #100 ea 08/04/22 08/11/22 Rx Lancets) acetazolamide 250 mg tablet 1,000 mg PO BID 30 days #240 tabs 08/05/22 08/17/22 Rx albuterol sulfate 2.5 mg/3 mL 2.5 mg (3 mL) NEB Q6R PRN 08/05/22 08/17/22 Rx (0.083 %) solution for nebulization shortness of breath or wheezing #90 mL furosemide 80 mg tablet 80 mg PO BID17 #60 tabs 08/05/22 08/17/22 Rx insulin glargine 100 unit/mL (3 10 unit (0.1 mL) subcut DAILY #15 08/05/2208/17 Rx mL) subcutaneous pen (Lantus mL Solostar U-100 Insulin) magnesium oxide 400 mg (241.3 mg 400 mg PO BID #60 tabs 08/05/22 08/17/22 Rx magnesium) tablet pen needle, diabetic 32 gauge x #100 ea 08/05/22 08/11/22 Rx " (Pen Needle) potassium chloride 20 mEq 40 meq PO BID 30 days #120 tabs 08/05/22 08/17/22 Rx tablet,extended release(part/cryst) prednisone 10 mg tablet 10 mg PO DAILY #30 tabs 08/05/22 08/17/22 Rx Allergies Allergy/AdvReac Type Severity Reaction Status Date / Time No Known Allergies Allergy Verified 08/17/22 02:10 Past Med/Surg History Medical History (Updated 08/17/22 @ 08:50 by Angelique Card PA-C) Chronic respiratory failure with hypoxia 3L at baseline, 4L w/ exertion as of 05/2022 Cor pulmonale COVID-19 long hauler Diabetes Hyponatremia Interstitial lung disease likeliest post Covid fibrosis; follows w/ Dr Cerna [facility] Obesity (BMI 30-39.9) Pneumonia due to COVID-19 virus Pulmonary hypertension Type 2 diabetes mellitus Family History Other Family history non-contributory Social History Smoking Status: Former smoker Hx Alcohol Use: No Hx Substance Use: No Preferred Language: Uzbek Communication Ability: Effective Patron Attendant Required: No Beliefs That Will Affect Care: None marital status: / Current Living Situation: Family Current Living Situation Comment: with son How many Children do You have: 1 Feels Safe at Home: Yes Safety Concerns: Feels Safe At This Time Assistive Devices: Glasses, Oxygen - Continuous and Walker Assistive Devices Comment: glasses with Review of Systems See HPI for pertinent positives & negatives. Physical Exam Vital Signs Vital Signs - 24 hr 08/16/22 22:02 08/16/22 22:15 08/16/22 22:15 Temperature 36.5 C Temperature Source Oral Pulse Rate 72 Pulse Rate [Apical] Pulse Rate from SpO2 Sensor Pulse Rhythm Pulse Rhythm [Apical] Pulse Strength [Apical] Respiratory Rate 30 H Respiratory Effort / Characteristics Labored Short of Breath SOB on Exertion Respiratory Depth Shallow Respiratory Pattern Tachypnea Blood Pressure 121/88 Blood Pressure [Left Arm] Blood Pressure Mean 99 Blood Pressure Mean [Left Arm] Pulse Oximetry 98 88 L Oxygen Delivery Method Non-rebreather Oxymask Oxymask Oxygen Flow Rate 15 12 6 Sepsis Recent Fever Within 48 Hours No Sepsis New/Unexplained Change in Mental Status No Sepsis Action Taken by Nursing No Action Required Oxygen Flow Rate - Titration 12 Pulse Oximetry Post Tiitration 94 08/16/22 22:15 08/16/22 22:22 08/16/22 22:22 Temperature Temperature Source Pulse Rate Pulse Rate [Apical] 73 Pulse Rate from SpO2 Sensor Pulse Rhythm Pulse Rhythm [Apical] Regular Pulse Strength [Apical] Normal Respiratory Rate 28 H 28 H Respiratory Effort / Characteristics Short of Breath SOB on Exertion Short of Breath SOB on Exertion Respiratory Depth Shallow Respiratory Pattern Blood Pressure Blood Pressure [Left Arm] 121/88 Blood Pressure Mean Blood Pressure Mean [Left Arm] 99 Pulse Oximetry 94 94 94 Oxygen Delivery Method Oxymask Oxymask Oxymask Oxygen Flow Rate 12 12 12 Sepsis Recent Fever Within 48 Hours Sepsis New/Unexplained Change in Mental Status Sepsis Action Taken by Nursing Oxygen Flow Rate - Titration Pulse Oximetry Post Tiitration 08/16/22 22:22 08/16/22 22:08 08/16/22 22:10 Temperature Temperature Source Pulse Rate 76 71 72 Pulse Rate [Apical] Pulse Rate from SpO2 Sensor 71 72 Pulse Rhythm Regular Pulse Rhythm [Apical] Pulse Strength [Apical] Respiratory Rate 28 H 30 H 30 H Respiratory Effort / Characteristics Respiratory Depth Respiratory Pattern Blood Pressure Blood Pressure [Left Arm] Blood Pressure Mean Blood Pressure Mean [Left Arm] Pulse Oximetry 94 95 90 Oxygen Delivery Method Oxymask Oxygen Flow Rate 12 Sepsis Recent Fever Within 48 Hours Sepsis New/Unexplained Change in Mental Status Sepsis Action Taken by Nursing Oxygen Flow Rate - Titration Pulse Oximetry Post Tiitration 08/16/22 22:20 08/16/22 22:30 08/16/22 22:31 Temperature Temperature Source Pulse Rate 72 74 Pulse Rate [Apical] Pulse Rate from SpO2 Sensor 72 73 Pulse Rhythm Pulse Rhythm [Apical] Pulse Strength [Apical] Respiratory Rate 26 H 37 H Respiratory Effort / Characteristics Respiratory Depth Respiratory Pattern Blood Pressure 111/73 Blood Pressure [Left Arm] Blood Pressure Mean 85 Blood Pressure Mean [Left Arm] Pulse Oximetry 92 96 Oxygen Delivery Method Oxygen Flow Rate Sepsis Recent Fever Within 48 Hours Sepsis New/Unexplained Change in Mental Status Sepsis Action Taken by Nursing Oxygen Flow Rate - Titration Pulse Oximetry Post Tiitration 08/16/22 22:31 08/16/22 22:40 08/16/22 22:50 Temperature Temperature Source Pulse Rate 72 73 74 Pulse Rate [Apical] Pulse Rate from SpO2 Sensor 72 73 74 Pulse Rhythm Pulse Rhythm [Apical] Pulse Strength [Apical] Respiratory Rate 18 32 H 20 Respiratory Effort / Characteristics Respiratory Depth Respiratory Pattern Blood Pressure Blood Pressure [Left Arm] Blood Pressure Mean Blood Pressure Mean [Left Arm] Pulse Oximetry 95 93 94 Oxygen Delivery Method Oxygen Flow Rate Sepsis Recent Fever Within 48 Hours Sepsis New/Unexplained Change in Mental Status Sepsis Action Taken by Nursing Oxygen Flow Rate - Titration Pulse Oximetry Post Tiitration 08/16/22 23:00 08/16/22 23:00 08/16/22 23:10 Temperature Temperature Source Pulse Rate 71 73 Pulse Rate [Apical] Pulse Rate from SpO2 Sensor 72 73 Pulse Rhythm Pulse Rhythm [Apical] Pulse Strength [Apical] Respiratory Rate 24 32 H Respiratory Effort / Characteristics Respiratory Depth Respiratory Pattern Blood Pressure 122/93 Blood Pressure [Left Arm] Blood Pressure Mean 102 Blood Pressure Mean [Left Arm] Pulse Oximetry 93 94 Oxygen Delivery Method Oxygen Flow Rate Sepsis Recent Fever Within 48 Hours Sepsis New/Unexplained Change in Mental Status Sepsis Action Taken by Nursing Oxygen Flow Rate - Titration Pulse Oximetry Post Tiitration 08/16/22 23:34 08/16/22 23:40 08/16/22 23:45 Temperature Temperature Source Pulse Rate 74 Pulse Rate [Apical] Pulse Rate from SpO2 Sensor 74 Pulse Rhythm Pulse Rhythm [Apical] Pulse Strength [Apical] Respiratory Rate 30 H 32 H Respiratory Effort / Characteristics Respiratory Depth Respiratory Pattern Blood Pressure 99/76 L Blood Pressure [Left Arm] Blood Pressure Mean 83 Blood Pressure Mean [Left Arm] Pulse Oximetry 90 Oxygen Delivery Method Oxygen Flow Rate Sepsis Recent Fever Within 48 Hours Sepsis New/Unexplained Change in Mental Status Sepsis Action Taken by Nursing Oxygen Flow Rate - Titration Pulse Oximetry Post Tiitration 08/16/22 23:45 08/16/22 23:50 08/17/22 00:00 Temperature Temperature Source Pulse Rate 74 70 Pulse Rate [Apical] Pulse Rate from SpO2 Sensor 74 70 Pulse Rhythm Pulse Rhythm [Apical] Pulse Strength [Apical] Respiratory Rate 24 24 Respiratory Effort / Characteristics Respiratory Depth Respiratory Pattern Blood Pressure 122/75 Blood Pressure [Left Arm] Blood Pressure Mean 90 Blood Pressure Mean [Left Arm] Pulse Oximetry 91 92 Oxygen Delivery Method Oxygen Flow Rate Sepsis Recent Fever Within 48 Hours Sepsis New/Unexplained Change in Mental Status Sepsis Action Taken by Nursing Oxygen Flow Rate - Titration Pulse Oximetry Post Tiitration 08/17/22 00:00 08/17/22 00:10 08/17/22 00:20 Temperature Temperature Source Pulse Rate 71 69 70 Pulse Rate [Apical] Pulse Rate from SpO2 Sensor 71 69 70 Pulse Rhythm Pulse Rhythm [Apical] Pulse Strength [Apical] Respiratory Rate 24 21 Respiratory Effort / Characteristics Respiratory Depth Respiratory Pattern Blood Pressure Blood Pressure [Left Arm] Blood Pressure Mean Blood Pressure Mean [Left Arm] Pulse Oximetry 94 92 93 Oxygen Delivery Method Oxygen Flow Rate Sepsis Recent Fever Within 48 Hours Sepsis New/Unexplained Change in Mental Status Sepsis Action Taken by Nursing Oxygen Flow Rate - Titration Pulse Oximetry Post Tiitration 08/17/22 00:30 08/17/22 00:30 08/17/22 00:40 Temperature Temperature Source Pulse Rate 68 71 Pulse Rate [Apical] Pulse Rate from SpO2 Sensor 68 70 Pulse Rhythm Pulse Rhythm [Apical] Pulse Strength [Apical] Respiratory Rate 24 25 H Respiratory Effort / Characteristics Respiratory Depth Respiratory Pattern Blood Pressure 102/79 Blood Pressure [Left Arm] Blood Pressure Mean 86 Blood Pressure Mean [Left Arm] Pulse Oximetry 91 92 Oxygen Delivery Method Oxygen Flow Rate Sepsis Recent Fever Within 48 Hours Sepsis New/Unexplained Change in Mental Status Sepsis Action Taken by Nursing Oxygen Flow Rate - Titration Pulse Oximetry Post Tiitration 08/17/22 00:50 08/17/22 01:00 08/17/22 01:10 Temperature Temperature Source Pulse Rate 70 70 70 Pulse Rate [Apical] Pulse Rate from SpO2 Sensor 70 70 70 Pulse Rhythm Pulse Rhythm [Apical] Pulse Strength [Apical] Respiratory Rate 24 25 H 25 H Respiratory Effort / Characteristics Respiratory Depth Respiratory Pattern Blood Pressure Blood Pressure [Left Arm] Blood Pressure Mean Blood Pressure Mean [Left Arm] Pulse Oximetry 92 91 90 Oxygen Delivery Method Oxygen Flow Rate Sepsis Recent Fever Within 48 Hours Sepsis New/Unexplained Change in Mental Status Sepsis Action Taken by Nursing Oxygen Flow Rate - Titration Pulse Oximetry Post Tiitration 08/17/22 01:20 08/17/22 01:30 08/17/22 01:40 Temperature Temperature Source Pulse Rate 68 69 69 Pulse Rate [Apical] Pulse Rate from SpO2 Sensor 69 69 69 Pulse Rhythm Pulse Rhythm [Apical] Pulse Strength [Apical] Respiratory Rate 24 26 H 25 H Respiratory Effort / Characteristics Respiratory Depth Respiratory Pattern Blood Pressure Blood Pressure [Left Arm] Blood Pressure Mean Blood Pressure Mean [Left Arm] Pulse Oximetry 92 94 91 Oxygen Delivery Method Oxygen Flow Rate Sepsis Recent Fever Within 48 Hours Sepsis New/Unexplained Change in Mental Status Sepsis Action Taken by Nursing Oxygen Flow Rate - Titration Pulse Oximetry Post Tiitration 08/17/22 01:50 08/17/22 02:00 Temperature Temperature Source Pulse Rate 71 70 Pulse Rate [Apical] Pulse Rate from SpO2 Sensor 71 72 Pulse Rhythm Pulse Rhythm [Apical] Pulse Strength [Apical] Respiratory Rate 25 H 20 Respiratory Effort / Characteristics Respiratory Depth Respiratory Pattern Blood Pressure Blood Pressure [Left Arm] Blood Pressure Mean Blood Pressure Mean [Left Arm] Pulse Oximetry 92 90 Oxygen Delivery Method Oxygen Flow Rate Sepsis Recent Fever Within 48 Hours Sepsis New/Unexplained Change in Mental Status Sepsis Action Taken by Nursing Oxygen Flow Rate - Titration Pulse Oximetry Post Tiitration VITALS: Vitals are noted on the nurse's note and reviewed by myself. GENERAL: 57-year-old female, in no acute distress, non-diaphoretic, well- developed well-nourished. SKIN: Capillary refill <2 sec. No tenting of the skin. HEAD: Normocephalic, atraumatic. EARS: External auditory canals clear, tympanic membranes pearly rubio without erythema or effusion bilaterally. EYES: PERRLA. EOMI. Conjunctivae without injection, sclerae without icterus. NOSE: Patent without discharge. MOUTH: Mucous membranes moist. Uvula midline. Airway patent. NECK: Supple without nuchal rigidity. HEART: Regular rate and rhythm without murmurs gallops or rubs. LUNGS: The patient is on 15 L of oxygen by Oxymask at the time of my exam. She does appear short of breath with any exertion despite her oxygen use. She has accessory muscle use, but no retractions. No wheezing or rhonchi, but the patient did have rales bilaterally. ABDOMEN: Positive bowel sounds x 4. Normal tympanic percussion. Soft, nontender, without masses or organomegaly. No guarding or rebound tenderness. MUSCULOSKELETAL: No gross musculoskeletal defects. NEURO: Patient was alert and oriented to person place and time. No focal neurological deficits. Course Administered Medications Citalopram Hydrobromide (Citalopram 20 Mg Tab) 10 mg PO QAM [facility] Stop: 09/16/22 08:59 Last Admin: 08/17/22 08:02 Dose: 10 mg Documented By: CB Cyanocobalamin (Cyanocobalamin (B-12) 500 Mcg Tablet) 1,000 mcg PO DAILY [facility] Stop: 09/16/22 08:59 Last Admin: 08/17/22 08:02 Dose: 1,000 mcg Documented By: JAYMIE Dextrose (Dextrose 50% 50 Ml Syringe) 25 - 50 ml IV UD PRN; Protocol PRN Reason: Hypoglycemia Protocol Stop: 09/16/22 04:08 Last Admin: 08/17/22 07:45 Dose: 25 ml Documented By: JAYMIE Heparin Sodium/Dextrose (Heparin Sodium/Dextrose) 25,000 units in 500 mls @ 24 mls/hr IV .[id number] RAEANN; Protocol Stop: 09/16/22 02:59 Last Titration: 08/17/22 07:20 Dose: 1,200 units/hr, 24 mls/hr Documented By: JAYMIE Co-signed By: KILEY Admin: 08/17/22 03:03 Dose: 1,200 units/hr, 24 mls/hr Documented By: JOSE Co-signed By: EDDIE Ceftriaxone Sodium 2,000 mg/ (Dextrose) 70 mls @ 100 mls/hr IV Q24H RAEANN; Protocol Stop: 08/24/22 03:59 Last Infusion: 08/17/22 06:25 Dose: 0 mls/hr Documented By: Admin: 08/17/22 04:37 Dose: 100 mls/hr Documented By: KILEY Insulin Aspart (Insulin Aspart Per Unit) 0 units SC ACHS [facility] Stop: 09/16/22 07:29 Last Admin: 08/17/22 07:56 Dose: Not Given Documented By: JAYMIE Insulin Glargine (Lantus Per Unit Charge) 8 units SQ BID [facility] Stop: 09/16/22 08:59 Last Admin: 08/17/22 08:08 Dose: Not Given Documented By: JAYMIE Lactobacillus Acidophilus (Advanced Probiotic 1250 Mg Capsule) 2 cap PO DAILY [facility] Stop: 09/16/22 08:59 Last Admin: 08/17/22 08:02 Dose: 2 cap Documented By: JAYMIE Levothyroxine Sodium (Levothyroxine Sodium 88 Mcg Tablet) 88 mcg PO DAILYBB [facility] Stop: 09/16/22 06:29 Last Admin: 08/17/22 06:31 Dose: 88 mcg Documented By: KILEY Magnesium Oxide (Magnesium Oxide 400 Mg Tab) 400 mg PO BID [facility] Stop: 09/16/22 08:59 Last Admin: 08/17/22 08:03 Dose: 400 mg Documented By: JAYMIE Miscellaneous (Icu Protocol For Hyperglycemia) 1 each N/A ACHS [facility] Stop: 08/19/22 07:29 Last Admin: 08/17/22 07:56 Dose: Not Given Documented By: JAYMIE Pantoprazole Sodium (Pantoprazole 40 Mg Tab) 40 mg PO QAM [facility] Stop: 08/20/22 09:01 Last Admin: 08/17/22 08:02 Dose: 40 mg Documented By: JAYMIE Prednisone (Prednisone 10 Mg Tablet) 10 mg PO DAILY [facility] Stop: 09/16/22 08:59 Last Admin: 08/17/22 08:02 Dose: 10 mg Documented By: JAYMIE Rosuvastatin Calcium (Rosuvastatin Calcium 5 Mg Tab) 5 mg PO SuWe@0900 [facility] Stop: 09/16/22 08:59 Last Admin: 08/17/22 08:01 Dose: 5 mg Documented By: JAYMIE Discontinued Medications Heparin Sodium (Porcine) (Heparin Sod (Porcine) 1000 Unit/Ml) 5,000 units IV NOW ONE Stop: 08/17/22 03:01 Last Admin: 08/17/22 03:05 Dose: 5,000 units Documented By: JOSE Co-signed By: EDDIE Heparin Sodium/Dextrose (Heparin Iv Adult Wt-Based Standard With Bolus Protocol) 1 each IV Q15M [facility]; Protocol Stop: 08/17/22 04:02 Last Admin: 08/17/22 06:43 Dose: Not Given Documented By: Admin: 08/17/22 06:43 Dose: Not Given Documented By: Admin: 08/17/22 03:13 Dose: Not Given Documented By: JOSE Heparin Sodium/Dextrose (Heparin 69066 Unit/500 Ml D5w) Confirm Administered Dose 25,000 units IV .STK-MED ONE Stop: 08/17/22 02:41 Last Admin: 08/17/22 03:13 Dose: Not Given Documented By: JOSE Ioversol (Optiray 320 500ml) 108 ml IV ONCE ONE Stop: 08/16/22 23:32 Last Admin: 08/16/22 23:32 Dose: 108 ml Documented By: NICA Medical Decision Making Differential Diagnosis Differential diagnosis includes URI, bronchitis, pneumonia, pneumothorax, hemothorax, PE, IN, pericarditis, myocarditis, aspiration, pulmonary edema, asthma, CHF, anemia, neoplasm, COVID, RSV, influenza, or others. Laboratory Data Attestation: I reviewed the patient's lab results. 08/16/22 22:00 08/16/22 22:00 Lab Results 08/16/22 08/16/22 08/16/22 Range/Units 22:00 22:00 22:00 WBC 9.36 (4.8-10.8) K/ul RBC 5.42 H (3.93-5.22) M/uL Hgb 15.2 (12.0-16.0) g/dl Hct 47.8 H (34.1-44.9) % MCV 88.2 (80.0-100.0) fL MCH 28.0 (25.0-34.0) pg MCHC 31.8 L (32.0-36.0) g/dL RDW Std Deviation 63.7 H (36.4-46.3) fL RDW Coeff of Lulu 21.0 H (11.5-14.5) % Plt Count 277 (130-400) K/uL MPV 11.3 (9.4-12.3) fL Immature Gran % (Auto) 1.0 % Neut % (Auto) 81.9 % Lymph % (Auto) 10.4 % Ramsey % (Auto) 6.0 % Eos % (Auto) 0.4 % Baso % (Auto) 0.3 % Neut # (Auto) 7.67 H (1.4-6.5) K/uL Lymph # (Auto) 0.97 L (1.2-3.4) K/uL Ramsey # (Auto) 0.56 (0.24-0.82) K/uL Eos # (Auto) 0.04 (0-0.50) K/uL Baso # (Auto) 0.03 (0-0.2) K/uL Immature Gran # (Auto) 0.09 H (0.00-0.02) K/uL Absolute Nucleated RBC 0.10 H (0-0) K/uL Nucleated RBC % (auto) 1.1 % Anisocytosis Present Tear Drop Cells 1+ Echinocytes 3+ Acanthocytes (Spur) 2+ PT 12.3 H (9.0-12.0) Seconds INR 1.2 H (0.9-1.1) APTT 27.1 (21.0-31.0) Seconds PTT Ratio 1.0 Sodium 130 L (136-145) mmol/L Potassium 5.6 H (3.5-5.1) mmol/L Chloride 98 (98-107) mmol/L Carbon Dioxide 22 (21-32) mmol/L Anion Gap 10 (3-11) BUN 30 H (6-23) mg/dl Creatinine 1.45 H (0.6-1.2) mg/dl Est Cr Clr Drug Dosing 46.4 ml/min Est GFR ( Amer) 46.9 ml/min Est GFR (Non-Af Amer) 40.4 ml/min BUN/Creatinine Ratio 20.7 H (10-20) Glucose 247 H (70-99(Fasting)) mg/dl Calcium 9.3 (8.5-10.1) mg/dl Magnesium 2.1 (1.7-2.4) mg/dl Total Bilirubin 1.6 H (0.2-1.0) mg/dl AST 13 (13-39) U/L ALT 14 (7-52) U/L Alkaline Phosphatase 83 (34-104) U/L Troponin I High Sens 243.9 H* (0-14) pg/ml Total Protein 7.4 (6.0-8.3) gm/dl Albumin 4.0 (3.4-5.0) gm/dl Globulin 3.4 (2.5-4.0) gm/dl Albumin/Globulin Ratio 1.2 (0.9-2) SARS-CoV-2 (PCR) (Negative) Influenza Type A (PCR) (Neg) Influenza Type B (PCR) (Neg) RSV (RT-PCR) (Neg) 08/16/22 Range/Units 23:47 WBC (4.8-10.8) K/ul RBC (3.93-5.22) M/uL Hgb (12.0-16.0) g/dl Hct (34.1-44.9) % MCV (80.0-100.0) fL MCH (25.0-34.0) pg MCHC (32.0-36.0) g/dL RDW Std Deviation (36.4-46.3) fL RDW Coeff of Lulu (11.5-14.5) % Plt Count (130-400) K/uL MPV (9.4-12.3) fL Immature Gran % (Auto) % Neut % (Auto) % Lymph % (Auto) % Ramsey % (Auto) % Eos % (Auto) % Baso % (Auto) % Neut # (Auto) (1.4-6.5) K/uL Lymph # (Auto) (1.2-3.4) K/uL Ramsey # (Auto) (0.24-0.82) K/uL Eos # (Auto) (0-0.50) K/uL Baso # (Auto) (0-0.2) K/uL Immature Gran # (Auto) (0.00-0.02) K/uL Absolute Nucleated RBC (0-0) K/uL Nucleated RBC % (auto) % Anisocytosis Tear Drop Cells Echinocytes Acanthocytes (Spur) PT (9.0-12.0) Seconds INR (0.9-1.1) APTT (21.0-31.0) Seconds PTT Ratio Sodium (136-145) mmol/L Potassium (3.5-5.1) mmol/L Chloride (98-107) mmol/L Carbon Dioxide (21-32) mmol/L Anion Gap (3-11) BUN (6-23) mg/dl Creatinine (0.6-1.2) mg/dl Est Cr Clr Drug Dosing ml/min Est GFR ( Amer) ml/min Est GFR (Non-Af Amer) ml/min BUN/Creatinine Ratio (10-20) Glucose (70-99(Fasting)) mg/dl Calcium (8.5-10.1) mg/dl Magnesium (1.7-2.4) mg/dl Total Bilirubin (0.2-1.0) mg/dl AST (13-39) U/L ALT (7-52) U/L Alkaline Phosphatase (34-104) U/L Troponin I High Sens (0-14) pg/ml Total Protein (6.0-8.3) gm/dl Albumin (3.4-5.0) gm/dl Globulin (2.5-4.0) gm/dl Albumin/Globulin Ratio (0.9-2) SARS-CoV-2 (PCR) NEGATIVE (Negative) Influenza Type A (PCR) Negative (Neg) Influenza Type B (PCR) Negative (Neg) RSV (RT-PCR) Negative (Neg) Imaging Data Radiologist's Impression: Preliminary Findings Only See Final Report For Complete Findings CTA CHEST: No pneumothorax. Lungs are clear. No pleural effusions. CV structures are unremarkable. Osseous structures are intact. Radiologist:Maxwell Sullivan MD Study ready at 23:52 and initial results transmitted at 23:57 Preliminary Findings Only See Final Report For Complete Findings ADDENDUM - Added by Marshall Sullivan MD on 08/17/2022 1:25 AM (-06:00) Initial report is submitted in error with a standard normal macro. The corrected report follows. CT chest with contrast Extensive PE suspected involving the right main pulmonary artery and extending into multiple right-sided lobar, segmental and subsegmental pulmonary artery branches. Prominence of the right atrium and ventricle with an increased RV: LV ratio suggests significant right heart strain Pulmonary disease compatible with chronic interstitial lung disease and pulmonary fibrosis CTA CHEST: No pneumothorax. Lungs are clear. No pleural effusions. CV structures are unremarkable. Osseous structures are intact. Radiologist: Marshall Sullivan MD Study ready at 23:52 and initial results transmitted at 23:57 Communications: Clear Time Type Notes 08/17/22 01:23 Call From [facility] [place] stephenson on 08/17 01:19 (-05:00) 08/17/22 01:34 Call Doctor Regarding Add endum, called [place] on 08/17 01:32 (-05:00) MDM Narrative I examined the patient. An IV lock was placed and labs were drawn. Continuous unit coordinator: Order was placed for continuous unit coordinator. Patient was placed on the unit coordinator and continuous pulse ox. Patient was noted to be in normal sinus rhythm at an initial rate of 72 bpm per my interpretation. EKG was interpreted by myself and revealed normal sinus rhythm at 71 bpm with diffuse T wave inversion concerning for possible PE. Chest x-ray was interpreted by myself and showed interstitial thickening which appears consistent with her pulmonary fibrosis as well as stable cardiomegaly. Radiology report is still pending. CBC without significant abnormalities. INR 1.2. Potassium 5.6, sodium 130, BUN 30, creatinine 1.45, glucose 247, total bilirubin 1.6. Troponin was significantly elevated at 243.9. The patient was unable to give a urine sample or stool sample while in the emergency department. COVID, RSV, and influenza were negative. CTA of the chest was initially read by stat rad as negative. However, upon my review and interpretation of the CTA there was concerned for a right sided PE or other acute process in addition to her chronic interstitial lung disease and findings from cor pulmonale. I had a meaningful discussion about this patient with Dr. Nash. They agree with my assessment and the treatment plan. I spoke with the radiologist from stat [facility] who reviewed the imaging again in light of the information on the patient's condition and her EKG findings. The radiologist made an addendum reading as extensive PE involving the right main pulmonary artery and extending into multiple right-sided lobar, segmental, and subsegmental pulmonary artery branches along with significant right heart strain. The patient's pulse ox would drop into the 80s even if her oxygen was reduced to 6 L or with any exertion. She remained around 92 to 94% while on 12 to 15 L of oxygen via Oxymask. The patient requires admission for further evaluation and treatment. I spoke with the on-call hospitalist who agreed to admit the patient. Please refer to their dictation for further details. The patient was started on a heparin drip and admitted to the ICU. The patient's care was transferred in stable condition. Impression & Plan Pulmonary embolism, Cor pulmonale, Interstitial lung disease, Acute and chronic respiratory failure with hypoxia Discharge Plan Visit Data Chief Complaint: Shortness of Breath/Dyspnea ED Provider: Leticia Nash ED Midlevel Provider: Angelique Card Discharge Problem: Pulmonary embolism, Cor pulmonale, Interstitial lung disease, Acute and chronic respiratory failure with hypoxia Patient Disposition: Admitted As Inpatient Condition: Good Discharge Instructions Interventions: ED Discharge Assessment Last Done: 08/17/22 03:15
[2022-08-16 22:26] LABS: Basophils # (auto) 0.03 K/uL (0-0.2); Basophils % (auto) 0.3 %; Eosinophils # (auto) 0.04 K/uL (0-0.50); Eosinophils % (auto) 0.4 %; Hematocrit (blood only) 47.8 % (34.1-44.9); Hemoglobin 15.2 g/dl (12.0-16.0); Immature Granulocytes # (auto) 0.09 K/uL (0.00-0.02); Lymphocytes # (auto) 0.97 K/uL (1.2-3.4); Lymphocytes % (auto) 10.4 %; Mean Corpuscular Hgb Conc 31.8 g/dL (32.0-36.0); Mean Corpuscular Volume 88.2 fL (80.0-100.0); Mean Platelet Volume 11.3 fL (9.4-12.3); Monocytes # (auto) 0.56 K/uL (0.24-0.82); Neutrophils # (auto) 7.67 K/uL (1.4-6.5); Neutrophils % (auto) 81.9 %; Nucleated RBC % (auto) 1.1 %; Platelet Count 277 K/uL (130-400); RDW Standard Deviation 63.7 fL (36.4-46.3); Red Blood Count 5.42 M/uL (3.93-5.22); White Blood Count 9.36 K/ul (4.8-10.8)
[2022-08-16 22:39] LABS: INR 1.2 (0.9-1.1); Partial Thromboplastin Time 27.1 Seconds (21.0-31.0); Prothrombin Time 12.3 Seconds (9.0-12.0)
[2022-08-16 22:46] LABS: Albumin Globulin Ratio 1.2 (0.9-2); BUN Creatinine Ratio 20.7 (10-20); Bilirubin,Total 1.6 mg/dl (0.2-1.0); Calcium 9.3 mg/dl (8.5-10.1); Creatinine Clr Calc Pharmacy 46.4 ml/min; Est GFR (African American) 46.9 ml/min; Est GFR (Non-African American) 40.4 ml/min; Globulin 3.4 gm/dl (2.5-4.0); Magnesium 2.1 mg/dl (1.7-2.4); Potassium 5.6 mmol/L (3.5-5.1); Total Protein 7.4 gm/dl (6.0-8.3)
[2022-08-16 23:01] LABS: Acanthocytes 2+; Anisocytosis Present; Echinocytes 3+; Tear Drop Cells 1+
[2022-08-16 23:07] LABS: Troponin I High Sensitivity 243.9 pg/ml (0-14)
[2022-08-16] MEDS ORDERED: OPTIRAY 320 500ml IV ONE (23:31)
[2022-08-17 00:51] LABS: Influenza A virus by PCR Negative (Neg); Influenza B virus by PCR Negative (Neg); RSV by PCR Negative (Neg); SARS CoV2 RNA(COVID-19) Ceph NEGATIVE (Negative)
[2022-08-17] MEDS ORDERED: POLYETHYLENE (MIRALAX) 17 GM PACK PO PRN (02:08)
[2022-08-17] MEDS ORDERED: ALUMINUM/MAGNESIUM/SIMETH (MAALOX MAX) 30 ML UDC PO PRN (02:08)
[2022-08-17] MEDS ORDERED: HEPARIN 25000 UNIT/500 ML D5W IV ONE (02:40)
[2022-08-17 02:46] LABS: Basophils # (auto) 0.03 K/uL (0-0.2); Basophils % (auto) 0.4 %; Eosinophils # (auto) 0.02 K/uL (0-0.50); Eosinophils % (auto) 0.3 %; Hematocrit (blood only) 45.1 % (34.1-44.9); Hemoglobin 14.8 g/dl (12.0-16.0); Immature Granulocytes # (auto) 0.06 K/uL (0.00-0.02); Immature Granulocytes % (auto) 0.8 %; Lymphocytes # (auto) 1.17 K/uL (1.2-3.4); Lymphocytes % (auto) 15.9 %; Mean Corpuscular Hemoglobin 28.3 pg (25.0-34.0); Mean Corpuscular Hgb Conc 32.8 g/dL (32.0-36.0); Mean Corpuscular Volume 86.2 fL (80.0-100.0); Mean Platelet Volume 10.4 fL (9.4-12.3); Monocytes # (auto) 0.54 K/uL (0.24-0.82); Monocytes % (auto) 7.3 %; Neutrophils # (auto) 5.53 K/uL (1.4-6.5); Neutrophils % (auto) 75.3 %; Nucleated RBC # (auto) 0.13 K/uL (0-0); Nucleated RBC % (auto) 1.8 %; Platelet Count 259 K/uL (130-400); RDW Coefficient of Variation 20.7 % (11.5-14.5); RDW Standard Deviation 61.7 fL (36.4-46.3); Red Blood Count 5.23 M/uL (3.93-5.22); White Blood Count 7.35 K/ul (4.8-10.8)
[2022-08-17] MEDS ORDERED: HEPARIN SOD (PORCINE) 1000 UNIT/ML IV ONE (03:00)
[2022-08-17] MEDS: HEPARIN SODIUM/DEXTROSE 25,000 UNITS/500 ML BAG IV SCH ×2 (03:03→23:26)
[2022-08-17 03:06] LABS: Albumin Level 3.7 gm/dl (3.4-5.0); Bilirubin Direct 0.3 mg/dl (0-0.2); Bilirubin,Total 1.3 mg/dl (0.2-1.0); Magnesium 1.9 mg/dl (1.7-2.4); Phosphorus 5.2 mg/dl (2.5-4.9); Total Protein 6.7 gm/dl (6.0-8.3)
[2022-08-17 03:13] LABS: BUN Creatinine Ratio 24.4 (10-20); Calcium 9.5 mg/dl (8.5-10.1); Creatinine Clr Calc Pharmacy 56.5 ml/min; Est GFR (African American) 59.5 ml/min; Est GFR (Non-African American) 51.4 ml/min; Potassium 4.4 mmol/L (3.5-5.1)
[2022-08-17] MEDS: Heparin IV Adult Wt-Based Standard WITH Bolus Protocol IV SCH ×2 (03:13→06:43)
[2022-08-17 03:19] LABS: Anisocytosis Present; Echinocytes 1+
--- NOTE | 2022-08-17 03:37 | History & Physical Report ---
Date of Service August 17, 2022 Assessment & Plan (1) Acute and chronic respiratory failure: Plan Acute on chronic respiratory failure Pulmonary embolism Possible pneumonia Patient presents with 2-day history of worsening shortness of breath, patient has a history of COVID-19 and interstitial lung disease. Admitting WBC WNL, admitting imaging with concern of right upper lobe pneumonia. Follow final radiological reads. Viral serology was negative. Per preliminary CTA chest read: Extensive PE suspected involving the right main pulmonary artery and extending into multiple right-sided lobar, segmental and subsegmental pulmonary artery branches. Prominence of the right atrium and ventricle with an increased RV: LV ratio suggests significant right heart strain Pulmonary disease compatible with chronic interstitial lung disease and pulmonary fibrosis Discussed the case with ICU team, patient was admitted in ICU, heparin drip initiated, discussed with Dr. Quique Montes, IR from [facility] for further suggestion on the need of acute intervention. He reviewed the imaging personally and feels that most likely it could be motion artifact/he could not definitely say PE in this poor imaging but pointed out that she does have right upper lobe pneumonia. He recommends either repeating CTA chest and reaching out to IR team if with significant PE or starting her on heparin drip/monitoring in ICU/do CTA chest if with clinical deterioration. Appreciate his time. Pt already on heparin at this time and being managed in ICU Troponin elevated, trend troponins. Stat echo ordered. Get BNP. Patient hemodynamically stable, wean down oxygen as tolerated. Mild hyponatremia: Appears chronic, admitting sodium of 130 which appears to be her baseline. Mild hypokalemia: Admitting EKG reviewed, telemetry monitoring, follow labs in AM. Hold KCL supplement, resume when diuretics resumed. Acute kidney injury: Creatinine of 1.45 at presentation, baseline around 1.0, prerenal from diarrhea, because of worsening shortness of breath-->will hold on IV fluid, monitor labs in AM. Hold nephrotoxics. Diarrhea: r/o c diff, recent hopsitalization. continue to monitor. Stool pcr sent. Full Code Heparin Drip Pt's sister Katherine was given a phone call, updated about patient's status. History of Present Illness Chief Complaint: Shortness of breath. Primary Care Provider: Liborio Garcia MD 57-year-old lady with PMH of T2DM, chronic hypoxemic respiratory failure on 3 L oxygen at home, HLD, hypothyroidism, hyponatremia, ILD, hypertension, pulmonary hypertension, morbid obesity, immunosuppression due to chronic steroid use presented to the ED/3 with complaint of acute trouble breathing. Patient had COVID in April 2021 complicated with interstitial lung disease. Per patient, she started having some trouble breathing 1 day ago prior to arrival, and it worsened significantly on the day of arrival, occurring with minimal exertion and even at rest. At home her saturation was 80% on 3 L at rest, was not improved much on 6 L by EMS, required 15 L oxygen by oxygen mask when in the ED to maintain saturation above 90%. Patient also reports multiple episodes (upwards of 5-10 of diarrhea) since 1 week PRIMARY CARE PROVIDER. Patient was recently discharged from the hospital 2 weeks ago. Patient also reports some drowsiness and being weak. Patient denies any belly pain or fever. Patient denies any headache or sore throat or chest pain or palpitation or acute changes in her bladder habits. Patient denies nausea or vomiting. Patient denies smoking/alcohol use/recreational drug use. 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 Medications were discussed and reviewed with the patient. Patient takes prednisone 10 Mg daily. Plan of care discussed with the patient. Allergies Allergy/AdvReac Type Severity Reaction Status Date / Time No Known Allergies Allergy Verified 08/17/22 02:10 Home Medications Medication Instructions Recorded Confirmed Type glipizide 10 mg tablet, extended 10 mg PO QDD 05/06/21 08/17/22 History release 24 hr levothyroxine 88 mcg tablet 88 mcg PO DAILYBB 05/06/21 08/17/22 History metformin 500 mg tablet,extended 2,000 mg PO QDD 05/06/21 08/17/22 History release 24 hr metoprolol succinate 100 mg 100 mg PO QAM 05/06/21 08/17/22 History tablet,extended release 24 hr rosuvastatin 5 mg tablet 5 mg PO 2XWK 05/06/21 08/17/22 History Oxygen Home #1 ea 05/08/21 08/11/22 Rx L.acidoph-L.rhamn-B.bifidum-B.long 1 tab PO DAILY 07/23/22 08/17/22 History 12.9 mg (2 billion cell) tabletDR (Probiotic Acidophilus Jacek) albuterol sulfate 90 mcg/actuation 2 puff inhalation Q6H PRN Wheezing 07/23/22 08/17/22 History aerosol inhaler benzonatate 100 mg capsule 100 mg PO TID PRN Cough 07/23/22 08/17/22 History citalopram 10 mg tablet 10 mg PO QAM 07/23/22 08/17/22 History codeine 10 mg-guaifenesin 100 mg/5 10 ml PO Q6H PRN Cough 07/23/22 08/17/22 History mL oral liquid (Guaifenesin AC) cyanocobalamin (vitamin B-12) 1,000 mcg PO DAILY 07/23/22 08/17/22 History 1,000 mcg tablet (Vitamin B-12) blood sugar diagnostic ([employer] #100 ea 08/04/22 08/11/22 Rx Verio test strips) blood-glucose meter ([employer] #1 ea 08/04/22 08/11/22 Rx Verio Meter) lancets 33 gauge ([employer] Delica #100 ea 08/04/22 08/11/22 Rx Lancets) acetazolamide 250 mg tablet 1,000 mg PO BID 30 days #240 tabs 08/05/22 08/17/22 Rx albuterol sulfate 2.5 mg/3 mL 2.5 mg (3 mL) NEB Q6R PRN 08/05/22 08/17/22 Rx (0.083 %) solution for nebulization shortness of breath or wheezing #90 mL furosemide 80 mg tablet 80 mg PO BID17 #60 tabs 08/05/22 08/17/22 Rx insulin glargine 100 unit/mL (3 10 unit (0.1 mL) subcut DAILY #15 08/05/22 08/17/22 Rx mL) subcutaneous pen (Lantus mL Solostar U-100 Insulin) magnesium oxide 400 mg (241.3 mg 400 mg PO BID #60 tabs 08/05/22 08/17/22 Rx magnesium) tablet pen needle, diabetic 32 gauge x #100 ea 08/05/22 08/11/22 Rx 5/32" (Pen Needle) potassium chloride 20 mEq 40 meq PO BID 30 days #120 tabs 08/05/22 08/17/22 Rx tablet,extended release(part/cryst) prednisone 10 mg tablet 10 mg PO DAILY #30 tabs 08/05/22 08/17/22 Rx Past Med/Surg History Medical History (Updated 08/04/22 @ 15:44 by Ambrose Abbott MD) Chronic respiratory failure with hypoxia 3L at baseline, 4L w/ exertion as of 05/2022 Cor pulmonale COVID-19 long hauler Diabetes Hyponatremia Interstitial lung disease likeliest post Covid fibrosis; follows w/ Dr Cerna [facility] Obesity (BMI 30-39.9) Pneumonia due to COVID-19 virus Pulmonary hypertension Type 2 diabetes mellitus Family History Other Family history non-contributory Social History Smoking Status: Never smoker Hx Alcohol Use: No Hx Substance Use: No Preferred Language: Belizean Communication Ability: Effective Patent Searcher Required: No Beliefs That Will Affect Care: None marital status: / Current Living Situation: Family Current Living Situation Comment: son How many Children do You have: 1 Feels Safe at Home: Yes Assistive Devices: Oxygen - Continuous Review of Systems Review of Systems: Negative otherwise mentioned in HPI. Physical Exam Physical Exam: GENERAL: Alert and oriented x3. NAD, on 15 L via OM HEENT: No pallor, no icterus. Pupils equal, round and reactive to light. Oral mucosa moist. NECK: No JVD, no neck masses. HEART: S1 and S2 heard. Regular rate and rhythm. No murmur, no gallop. RESPIRATORY SYSTEM: Normal AP diameter. No accessory muscle use. No wheezing, crackles diffuse and bilateral. ABDOMEN: Soft, bowel sounds present, nontender, no distention. CENTRAL NERVOUS SYSTEM: No facial droop. Speech is clear. Obeys simple commands. Moves extremities. EXTREMITIES: No edema, no erythema seen. Rt leg w/ ruptured blister, doesn't look infective. Results & Data Results & Data ([facility]) Vital Signs (Past 12 Hours) Vital Signs Temp Pulse Pulse Resp BP BP Pulse Ox 08/17/22 03:00 69 17 92 08/17/22 03:00 107/67 08/17/22 02:50 68 25 H 91 08/17/22 02:40 69 18 91 08/17/22 02:32 70 25 H 93 08/17/22 02:20 69 26 H 91 08/17/22 02:10 73 26 H 91 08/17/22 02:00 70 20 90 08/17/22 01:50 71 25 H 92 08/17/22 01:40 69 25 H 91 08/17/22 01:30 69 26 H 94 08/17/22 01:20 68 24 92 08/17/22 01:10 70 25 H 90 08/17/22 01:00 70 25 H 91 08/17/22 00:50 70 24 92 08/17/22 00:40 71 25 H 92 08/17/22 00:30 68 24 91 08/17/22 00:30 102/79 08/17/22 00:20 70 21 93 08/17/22 00:10 69 92 08/17/22 00:00 71 24 94 08/17/22 00:00 122/75 08/16/22 23:50 70 24 92 08/16/22 23:45 74 24 91 08/16/22 23:45 99/76 L 08/16/22 23:40 74 32 H 90 08/16/22 23:34 30 H 08/16/22 23:10 73 32 H 94 08/16/22 23:00 71 24 93 08/16/22 23:00 122/93 08/16/22 22:50 74 20 94 08/16/22 22:40 73 32 H 93 08/16/22 22:31 72 18 95 08/16/22 22:31 111/73 08/16/22 22:30 74 37 H 96 08/16/22 22:20 72 26 H 92 08/16/22 22:10 72 30 H 90 08/16/22 22:08 71 30 H 95 08/16/22 22:22 76 28 H 94 08/16/22 22:22 94 08/16/22 22:22 28 H 94 08/16/22 22:15 73 28 H 121/88 94 08/16/22 22:15 88 L 08/16/22 22:15 08/16/22 22:02 36.5 C 72 30 H 121/88 98 O2 Del Method O2 Flow Rate 08/17/22 03:00 08/17/22 03:00 08/17/22 02:50 08/17/22 02:40 08/17/22 02:32 08/17/22 02:20 08/17/22 02:10 08/17/22 02:00 08/17/22 01:50 08/17/22 01:40 08/17/22 01:30 08/17/22 01:20 08/17/22 01:10 08/17/22 01:00 08/17/22 00:50 08/17/22 00:40 08/17/22 00:30 08/17/22 00:30 08/17/22 00:20 08/17/22 00:10 08/17/22 00:00 08/17/22 00:00 08/16/22 23:50 08/16/22 23:45 08/16/22 23:45 08/16/22 23:40 08/16/22 23:34 08/16/22 23:10 08/16/22 23:00 08/16/22 23:00 08/16/22 22:50 08/16/22 22:40 08/16/22 22:31 08/16/22 22:31 08/16/22 22:30 08/16/22 22:20 08/16/22 22:10 08/16/22 22:08 08/16/22 22:22 Oxymask 12 08/16/22 22:22 Oxymask 12 08/16/22 22:22 Oxymask 12 08/16/22 22:15 Oxymask 12 08/16/22 22:15 Oxymask 6 08/16/22 22:15 Oxymask 12 08/16/22 22:02 Non-rebreather 15 Code Status & VTE Plan VTE Prophylaxis Plan VTE Prophylaxis will be ordered: Yes
[2022-08-17] MEDS ORDERED: GLUCAGON FOR INJ 1 MG VIAL SQ PRN (04:09)
[2022-08-17] MEDS ORDERED: GLUCOSE 10 TAB/TUBE PO PRN (04:09)
[2022-08-17] MEDS ORDERED: CARBOHYDRATES FOR HYPOGLYCEMIA PO PRN (04:09)
[2022-08-17] MEDS ORDERED: GLUCOSE 40% GEL 15 GM TUBE PO PRN (04:09)
[2022-08-17] MEDS ORDERED: DEXTROSE 50% 50 ML SYRINGE IV PRN (04:09)
[2022-08-17] MEDS: cefTRIAXone SODIUM 2,000 MG in DEXTROSE 5% 50 ML IV SCH (04:37)
[2022-08-17 04:45] LABS: Appearance Urine Cloudy (Clear); Bacteria Urine Automated 4+ (Negative); Bilirubin Urine Negative (Negative); Blood Urine Trace (Negative); Color Urine Yellow; Epithelial Cell Urine Auto >30 /lpf (0-5); Glucose Urine UA Negative (Negative); Ketones Urine Negative (Negative); Leukocyte Esterase Urine Negative (Negative); Nitrite Urine Positive (Negative); Protein Urine 2+ (Negative); Specific Gravity Urine > 1.045 (1.000-1.030); Urobilinogen Urine Negative (Negative); pH Urine 5.5 (4.5-7.5)
--- NOTE | 2022-08-17 05:24 | Critical Care Consultation ---
Date of Consultation August 17, 2022 Assessment & Plan (1) Pulmonary embolism: Reason Critically Ill: 57-year-old female past medical history ILD, chronic hypoxia on 3 L nasal cannula presents to the ICU with acute on chronic hypoxia respiratory failure and extensive pulmonary embolism. Neuro - [facility] ICU: Negative Cardiac - Pulmonary hypertension/cor pulmonalepatient with previous echo with RV dilated and severely reduced RV function -Hold Lasix and metoprolol given PE with RV strain -Continuous monitoring on telemetry Respiratory - Acute on chronic hypoxic respiratory failurepatient with ILD on 3 L nasal cannula at baseline now presents with severe hypoxia and currently on 15 L OxiMax -CTA chest with evidence of extensive PE involving the right main pulmonary artery and extending into multiple right-sided lobar, segmental, and subsegmental pulmonary artery branches Continue heparin drip -Low threshold for lysis if patient were to become hemodynamically unstable. Monitor in ICU -Continue prednisone, nebs as needed -Continuous monitoring pulse ox. Wean oxygen as tolerated GI - N.p.o. RENAL/LYTES - AKIcreatinine 1.4, likely in the setting of dehydration. Improved following fluid bolus -Monitor routine BMPs and replete electrolytes as indicated -Renally dose meds and avoid nephrotoxins - Strict I's and O's ENDO - DM type IIhold oral agents in favor of sliding scale -ICU hyperglycemic protocol Hypothyroidcontinue Synthroid HEME - H&H stable, monitor routine CBC ID - Urinalysis with 4+ bacteria, appears to be uncomplicated. Urine culture pending. Continue Rocephin LINES/IV ACCESS - Peripheral IVs DVT PROPHYLAXIS - SCDs, heparin drip I have personally spent 40 minutes of critical care time in the direct management of this patient. This is a life/limb threatening event. This includes time spent evaluating patient, direct bedside care, chart review, placing orders, interpretation of diagnostic studies, discussion with consultants, patient, and family members, as well as other required patient management activities. This time is exclusive of all separately billable procedures, and teaching time and separate from and in addition to any other critical care service time. Thank you for allowing us to participate in the care of this patient. Please refer to my attending physician's documentation for any further recommendations. (2) Interstitial lung disease: (3) Acute and chronic respiratory failure with hypoxia: (4) Diabetes: (5) Pulmonary hypertension: (6) COVID-19 long hauler: (7) Cor pulmonale: History of Present Illness Attending Physician: Maico Lantigua MD History of Present Illness Patient is a 57-year-old female with past medical history significant for interstitial lung disease (3 L nasal cannula at baseline) due to post COVID-19 fibrosis, pulmonary hypertension, HLD, hypothyroidism, hyponatremia, HTN, who presented to the emergency department with worsening shortness of breath that of been ongoing for 2 days. Patient was found to be hypoxic and was placed on nonrebreather at 15 L. She was recently discharged from the hospital 2 weeks ago. She follows with Dr. Jc in pulmonary clinic. On arrival to the ED she underwent CTA chest and was found to have extensive PE involving the right main pulmonary artery and extending into multiple right-sided lobar, segmental and subsegmental pulmonary artery branches. CT also noted right atrium and ventricle with increased RV, however previous echo has showed the right ventricle to be severely dilated with reduced systolic function. Troponin was elevated at 243.9. She was started on heparin drip. Decision was made to admit to ICU for further monitoring as patient is low threshold for requiring lysis. Allergies Allergy/AdvReac Type Severity Reaction Status Date / Time No Known Allergies Allergy Verified 08/17/22 02:10 Home Medications Medication Instructions Recorded Confirmed Type glipizide 10 mg tablet, extended 10 mg PO QDD 05/06/21 08/17/22 History release 24 hr levothyroxine 88 mcg tablet 88 mcg PO DAILYBB 05/06/21 08/17/22 History metformin 500 mg tablet,extended 2,000 mg PO QDD 05/06/21 08/17/22 History release 24 hr metoprolol succinate 100 mg 100 mg PO QAM 05/06/21 08/17/22 History tablet,extended release 24 hr rosuvastatin 5 mg tablet 5 mg PO 2XWK 05/06/21 08/17/22 History Oxygen Home #1 ea 05/08/21 08/11/22 Rx L.acidoph-L.rhamn-B.bifidum-B.long 1 tab PO DAILY 07/23/22 08/17/22 History 12.9 mg (2 billion cell) DR bolivar (Probiotic Acidophilus Jacek) albuterol sulfate 90 mcg/actuation 2 puff inhalation Q6H PRN Wheezing 07/23/22 08/17/22 History aerosol inhaler benzonatate 100 mg capsule 100 mg PO TID PRN Cough 07/23/22 08/17/22 History citalopram 10 mg tablet 10 mg PO QAM 07/23/22 08/17/22 History codeine 10 mg-guaifenesin 100 mg/5 10 ml PO Q6H PRN Cough 07/23/22 08/17/22 History mL oral liquid (Guaifenesin AC) cyanocobalamin (vitamin B-12) 1,000 mcg PO DAILY 07/23/22 08/17/22 History 1,000 mcg tablet (Vitamin B-12) blood sugar diagnostic ([employer]Touch #100 ea 08/04/22 08/11/22 Rx Verio test strips) blood-glucose meter ([employer] #1 ea 08/04/22 08/11/22 Rx Verio Meter) lancets 33 gauge ([employer] Delica #100 ea 08/04/22 08/11/22 Rx Lancets) acetazolamide 250 mg tablet 1,000 mg PO BID 30 days #240 tabs 08/05/22 08/17/22 Rx albuterol sulfate 2.5 mg/3 mL 2.5 mg (3 mL) NEB Q6R PRN 08/05/22 08/17/22 Rx (0.083 %) solution for nebulization shortness of breath or wheezing #90 mL furosemide 80 mg tablet 80 mg PO BID17 #60 tabs 08/05/22 08/17/22 Rx insulin glargine 100 unit/mL (3 10 unit (0.1 mL) subcut DAILY #15 08/05/22 08/17/22 Rx mL) subcutaneous pen (Lantus mL Solostar U-100 Insulin) magnesium oxide 400 mg (241.3 mg 400 mg PO BID #60 tabs 08/05/22 08/17/22 Rx magnesium) tablet pen needle, diabetic 32 gauge x #100 ea 08/05/22 08/11/22 Rx 5/32" (Pen Needle) potassium chloride 20 mEq 40 meq PO BID 30 days #120 tabs 08/05/22 08/17/22 Rx tablet,extended release(part/cryst) prednisone 10 mg tablet 10 mg PO DAILY #30 tabs 08/05/22 08/17/22 Rx Patient History Medical History (Updated 08/17/22 @ 06:31 by BENJAMÍN Carlos) Chronic respiratory failure with hypoxia 3L at baseline, 4L w/ exertion as of 05/2022 Cor pulmonale COVID-19 long hauler Diabetes Hyponatremia Interstitial lung disease likeliest post Covid fibrosis; follows w/ Dr Cerna [facility] Obesity (BMI 30-39.9) Pneumonia due to COVID-19 virus Pulmonary hypertension Type 2 diabetes mellitus Family History Other Family history non-contributory Social History Smoking Status: Former smoker Hx Alcohol Use: No Hx Substance Use: No Preferred Language: Sinhala Communication Ability: Effective Devops Solutions Architect Required: No Beliefs That Will Affect Care: None marital status: / Current Living Situation: Family Current Living Situation Comment: with son How many Children do You have: 1 Feels Safe at Home: Yes Safety Concerns: Feels Safe At This Time Assistive Devices: Glasses, Oxygen - Continuous and Walker Assistive Devices Comment: glasses with Review of Systems Review of Systems: On evaluation the patient is alert and oriented. She is mildly tachypneic and complains of shortness of breath which is much worse with activity. She denies headache, dizziness, sore throat, fevers, cough, chest pain or palpitations, abdominal pain, nausea or vomiting, diarrhea, swelling in hands or feet, changes in gait. Results & Data Results & Data ([facility]) Vital Signs (Past 12 Hours) Vital Signs Temp Pulse Pulse Resp BP BP Pulse Ox 08/17/22 03:45 08/17/22 03:45 36.6 C 68 26 H 109/73 92 08/17/22 03:00 69 17 92 08/17/22 03:00 107/67 08/17/22 02:50 68 25 H 91 08/17/22 02:40 69 18 91 08/17/22 02:32 70 25 H 93 08/17/22 02:20 69 26 H 91 08/17/22 02:10 73 26 H 91 08/17/22 02:00 70 20 90 08/17/22 01:50 71 25 H 92 08/17/22 01:40 69 25 H 91 08/17/22 01:30 69 26 H 94 08/17/22 01:20 68 24 92 08/17/22 01:10 70 25 H 90 08/17/22 01:00 70 25 H 91 08/17/22 00:50 70 24 92 08/17/22 00:40 71 25 H 92 08/17/22 00:30 68 24 91 08/17/22 00:30 102/79 08/17/22 00:20 70 21 93 08/17/22 00:10 69 92 08/17/22 00:00 71 24 94 08/17/22 00:00 122/75 08/16/22 23:50 70 24 92 08/16/22 23:45 74 24 91 08/16/22 23:45 99/76 L 08/16/22 23:40 74 32 H 90 08/16/22 23:34 30 H 08/16/22 23:10 73 32 H 94 08/16/22 23:00 71 24 93 08/16/22 23:00 122/93 08/16/22 22:50 74 20 94 08/16/22 22:40 73 32 H 93 08/16/22 22:31 72 18 95 08/16/22 22:31 111/73 08/16/22 22:30 74 37 H 96 08/16/22 22:20 72 26 H 92 08/16/22 22:10 72 30 H 90 08/16/22 22:08 71 30 H 95 08/16/22 22:22 76 28 H 94 08/16/22 22:22 94 08/16/22 22:22 28 H 94 08/16/22 22:15 73 28 H 121/88 94 08/16/22 22:15 88 L 08/16/22 22:15 08/16/22 22:02 36.5 C 72 30 H 121/88 98 O2 Del Method O2 Flow Rate 08/17/22 03:45 Oxymask 15 08/17/22 03:45 Oxymask 15 08/17/22 03:00 08/17/22 03:00 08/17/22 02:50 08/17/22 02:40 08/17/22 02:32 08/17/22 02:20 08/17/22 02:10 08/17/22 02:00 08/17/22 01:50 08/17/22 01:40 08/17/22 01:30 08/17/22 01:20 08/17/22 01:10 08/17/22 01:00 08/17/22 00:50 08/17/22 00:40 08/17/22 00:30 08/17/22 00:30 08/17/22 00:20 08/17/22 00:10 08/17/22 00:00 08/17/22 00:00 08/16/22 23:50 08/16/22 23:45 08/16/22 23:45 08/16/22 23:40 08/16/22 23:34 08/16/22 23:10 08/16/22 23:00 08/16/22 23:00 08/16/22 22:50 08/16/22 22:40 08/16/22 22:31 08/16/22 22:31 08/16/22 22:30 08/16/22 22:20 08/16/22 22:10 08/16/22 22:08 08/16/22 22:22 Oxymask 12 08/16/22 22:22 Oxymask 12 08/16/22 22:22 Oxymask 12 08/16/22 22:15 Oxymask 12 08/16/22 22:15 Oxymask 6 08/16/22 22:15 Oxymask 12 08/16/22 22:02 Non-rebreather 15 Coding Level of Care Code Critical Care 1st 30-74 mins Diagnoses Pulmonary embolism I26.99 Interstitial lung disease J84.9 Acute and chronic respiratory failure with hypoxia J96.21 Diabetes E11.9 Pulmonary hypertension I27.20 COVID-19 long hauler U09.9 Cor pulmonale I27.81
[2022-08-17 05:43] LABS: RBC Urine Automated 0-4 /hpf (0-4)
[2022-08-17] MEDS: LEVOTHYROXINE SODIUM 88 MCG TABLET PO SCH (06:31)
[2022-08-17] MEDS: INSULIN ASPART PER UNIT SC SCH ×4 (07:56→20:15)
[2022-08-17] MEDS: ICU Protocol for HYPERglycemia SCH ×4 (07:56→20:15)
[2022-08-17] MEDS: ROSUVASTATIN CALCIUM 5 MG TAB PO SCH (08:01)
[2022-08-17] MEDS: PANTOprazole 40 MG TAB PO SCH (08:02)
[2022-08-17] MEDS: CITALOPRAM 20 MG TAB PO SCH (08:02)
[2022-08-17] MEDS: CYANOCOBALAMIN (B-12) 500 MCG TABLET PO SCH (08:02)
[2022-08-17] MEDS: ADVANCED PROBIOTIC 1250 MG CAPSULE PO SCH (08:02)
[2022-08-17] MEDS: predniSONE 10 MG TABLET PO SCH (08:02)
[2022-08-17] MEDS: MAGNESIUM OXIDE 400 MG TAB PO SCH ×2 (08:03→20:08)
--- NOTE | 2022-08-17 08:43 | XRay Report ---
XR chest 1V portable HISTORY: 57 years-old Female SOB acute shortness of breath COMPARISON: CTA chest of same day, chest CT 07/24/2021 TECHNIQUE: AP view of the chest FINDINGS: Cardiac silhouette is enlarged. Atherosclerosis of the aorta. Pulmonary arterial hypertension. Emphys donaldo with chronic interstitial lung disease redemonstrated, most pronounced in the right upper lung. C hronic right lung volume loss. No pneumothorax, pleural effusion, new lobar airspace consolidation or overt pulmonary edema. Right shoulder rotator cuff calcific tendinosis. Degenerative changes of the shoulders and spine. IMPRESSION: 1. Chronic interstitial lung disease. 2. Mild right lung volume loss again noted. 3. Cardiomegaly with pulmonary arterial hypertension. ACT 112: Negative or not required by law. The above report was generated using voice recognition software. It may contain grammatical, syntax o r spelling errors. Electronically signed by: Ran Morales M.D. 08/17/2022 8:40 AM
[2022-08-17 08:57] LABS: Adenovirus F 40/41 PCR Not Detected (NotDetected); Astrovirus PCR Not Detected (NotDetected); Campylobacter PCR Not Detected (NotDetected); Cryptosporidium PCR Not Detected (NotDetected); Cyclospora cayetanensis PCR Not Detected (NotDetected); Entamoeba histolytica PCR Not Detected (NotDetected); Enteroaggregative E.coli(EAEC) Not Detected (NotDetected); Enteropathogenic E.coli (EPEC) Not Detected (NotDetected); Enterotoxigenic E.coli (ETEC) Not Detected (NotDetected); Giardia lamblia PCR Not Detected (NotDetected); Norovirus GI/GII PCR Not Detected (NotDetected); Plesiomonas shigelloides PCR Not Detected (NotDetected); Rotavirus A PCR Not Detected (NotDetected); Salmonella PCR Not Detected (NotDetected); Sapovirus PCR Not Detected (NotDetected); Shiga-like Toxin E.coli (STEC) Not Detected (NotDetected); Shigella/Enteroinvasive E.coli Not Detected (NotDetected); Vibrio cholerae PCR Not Detected (NotDetected); Vibrio species PCR Not Detected (NotDetected); Yersinia enterocolitica PCR Not Detected (NotDetected)
--- NOTE | 2022-08-17 08:57 | CT Scan Report ---
CT ANGIOGRAPHY OF THE CHEST, PULMONARY EMBOLUS PROTOCOL CLINICAL HISTORY: Increasing shortness of breath. COMPARISON STUDY: Chest CT July 24, 2022 and chest radiograph August 16, 2022. TECHNIQUE: Following IV administration of 108 mL of Optiray, helical axial images of the chest were o btained utilizing the pulmonary embolus protocol. Maximal intensity projections and sagittal and cor onal reformats were viewed on an independent 3D workstation. IV contrast was administered without co mplication. Automated exposure control was utilized for the study. A dose lowering technique was ut ilized adhering to the principles of ALARA. CT DOSE: 474.78 mGy.cm FINDINGS: Evaluation of the pulmonary arteries is significantly compromised given mixing artifact. A pparent filling defects within the right-sided pulmonary arteries are likely due to mixing artifact. Moderate cardiomegaly is noted. Dilatation of the right heart chambers has increased since earlier CT of May 06, 2021. There is straightening of the interventricular septum. The left ventricle is small when compared to the right. There is no pericardial effusion. Subcarinal lymph node has decreas ed in size since CT of May 06, 2021. There is no pneumothorax or pleural effusion. Pulmonary fi brosis is again noted with subpleural reticulation, honeycombing and traction bronchiectasis. A groun dglass opacity within the superior segment of the right lower lobe measures 4.5 x 2.2 x 1.7 cm. This is unchanged since prior CT. No fracture or suspicious lesion within the bony thorax is noted. The IV C and hepatic veins are mildly dilated with reflux of contrast due to right heart dysfunction. Mild d ilatation of the ascending aorta is unchanged. IMPRESSION: 1. Exam significantly compromised by mixing artifact within the pulmonary arteries. Apparent right-si ded filling defects are likely due to mixing artifact. A repeat PE protocol chest CT is recommended f or improved opacification. Findings discussed with Dr. Brooks at time of dictation. 2. Evidence for pulmonary arterial hypertension with dilatation of the right heart chambers and evide nce for right heart dysfunction. Findings have progressed since CT of May 06, 2021. This is lik madiha due to underlying pulmonary fibrosis. 3. Moderate cardiomegaly and mild dilatation of the ascending aorta. 4. 4.5 x 2.2 x 1.7 cm groundglass opacity within the superior segment of the right lower lobe. This i s similar to prior chest CT. This is indeterminate and a follow-up chest CT in 3 months is recommende d to ensure resolution and to exclude the possibility of an underlying pulmonary lesion. ACT 112: Negative or not required by law. Electronically signed by: Matt King M.D. 08/17/2022 8:54 AM
[2022-08-17] MEDS ORDERED: LANTUS PER UNIT CHARGE SQ SCH (09:00)
[2022-08-17] MEDS ORDERED: METOPROLOL SUCC 50MG EXT REL TAB PO SCH (09:00)
[2022-08-17] MEDS ORDERED: NORMOSOL-R 500 ML IV SCH (09:00)
[2022-08-17] MEDS ORDERED: FUROSEMIDE 80 MG TAB PO SCH (09:00)
--- NOTE | 2022-08-17 09:02 | Critical Care Progress Note ---
Date of Service August 17, 2022 Assessment & Plan (1) Pulmonary embolism: Plan: Reason Critically Ill: 57-year-old female past medical history ILD, chronic hypoxia on 3L nasal cannula presents to the ICU with acute on chronic hypoxia respiratory failure and suspected extensive pulmonary embolism. Neuro - [facility] ICU: Negative Cardiac - Pulmonary hypertension/cor pulmonale -Previous echo with RV dilated and severely reduced RV function. Repeat echo pending. -CT shows worsening pulmonary arterial hypertension with dilatation of the right heart chambers and evidence for right heart dysfunction. -Hold Lasix and metoprolol given possible PE with worsening RV strain -BNP 3500. Trending trops. -Continuous monitoring on telemetry Respiratory - Acute on chronic hypoxic respiratory failurepatient with ILD on 3L nasal cannula at baseline now with severe hypoxia and currently on 15L OxiMax -CTA chest compromised by mixing artifact within the pulmonary arteries. Initial suspicion was PE. Will repeat PE protocol chest CT later today --> want to be judicious with IV contrast use continue heparin drip -bilateral venous Doppler negative -if PE confirmed on repeat CT, low threshold for lysis if patient were to become hemodynamically unstable. Did discuss this potential option with the patient. -Continue prednisone, nebs as needed -Continuous monitoring pulse ox. Wean oxygen as tolerated. GI - clears RENAL/LYTES - LUI likely in the setting of dehydration. Creatinine wnl s/p fluid bolus. -Monitor routine BMPs and replete electrolytes as indicated -Renally dose meds and avoid nephrotoxins - Strict I/O's ENDO - DM type IIhold oral agents in favor of sliding scale -ICU hyperglycemic protocol -consider discontinuation of home glipizide on discharge. Patient tends to run low at home. Hypothyroidcontinue Synthroid HEME - H&H stable, monitor routine CBC ID - Urinalysis with 4+ bacteria, appears to be uncomplicated. Urine culture pending. Continue Rocephin. LINES/IV ACCESS - Peripheral IVs DVT ppx- SCDs, heparin drip GI ppx- protonix Thank you for allowing us to participate in the care of this patient. Please refer to my attending physician's documentation for any further recommendations. (2) Interstitial lung disease: (3) Acute and chronic respiratory failure with hypoxia: (4) Diabetes: (5) Pulmonary hypertension: (6) COVID-19 long hauler: (7) Cor pulmonale: Admission and Anticipated Discharge Date Admission Date: August 17, 2022 Supervising Physician Co-Signing Physician Notes Dr. Asencio was the resident-physician during care of patient. I separately evaluated patient for sandoval portions of the history and the exam. I was present during the critical portion of medical decision making, and I discussed the case with the resident. I generally agree with the findings and plan except for any additions/exceptions noted. 57-year-old female with past medical history of severe right-sided pulmonary hypertension presented to the hospital with shortness of breath Patient had CTA chest done in the ED which showed PE with right heart strain. At the time of examination patient was saturating 91-92% on 15 L not in any respiratory distress. Denied any chest pain, no headache, no nausea, no vomiting. Constitutional: No acute distress HEENT: EOMI, PERRLA Respiratory system: Decreased air entry bilaterally, no wheeze, no rhonchi, positive crackles appreciated bilaterally, CVS: S1-S2 positive, no murmurs or gallops Abdomen: Soft, nontender, nondistended, positive bowel sounds x4 Extremities: +2 pulses bilaterally radialis/ dorsalis pedis, no cyanosis, no edema Neuro: Awake alert oriented x3 Psych: Normal mood and affect G/U: Positive Resendiz --Prophylaxis VTE: Heparin drip GI: Pantoprazole Lines: Peripheral Diet: Clear liquid Plan: I spoke with Dr. King from radiology department. He called and stated that he is not sure if the patient has a pulmonary embolism it seems to be artifact given the pulmonary hypertension that he has. Patient had a CTA chest done in April 2021 which still showed right-sided strain she did not have PE at that time. Echo was done today which does not show any significant change compared to the previous echo. Right-sided ventricular pressure is still elevated and decreased functioning of the right ventricle. I gave the patient 500 and mils of Normosol at 50 mL an hour so that we can have another CTA chest done after speaking with radiologist. Unfortunately the repeat CT angio also showed artifact and radiology were not able to ascertain if it is truly PE. Given the oxygen requirement of significant amount I would consider this is PE right now and treat the patient with heparin drip. I do not see any significant groundglass opacities to think of PJP, I would order PJP sputum culture PCR to be sent. I am going to start the patient on 40 mg IV Lasix twice daily as well as acetazolamide 500 mg twice daily p.o. for her pulmonary hypertension. I will treat as if the patient has cor pulmonale. BiPAP/CPAP nightly and as needed shortness of breath We will try to keep the patient negative balance. Continue with antibiotics for the time being I have personally spent 55 minutes of critical care time in the direct management of this patient. This is a life/limb threatening event. This includes time spent evaluating patient, direct bedside care, chart review, placing orders, interpretation of diagnostic studies, discussion with consultants, patient, and/or family members regarding treatment decisions, as well as other required patient management activities. This time is exclusive of all separately billable procedures, and teaching time and separate from and in addition to any other critical care service time. Subjective Patient seen at bedside this morning. Still having increased oxygen requirement but breathing mildly improved since admission. Denies chest pain, headache, N/V, abdominal pain, leg cramping. Review of Systems 2 Review of Systems: All systems reviewed & are unremarkable except as noted in HPI & below Physical Exam Physical Exam: GENERAL: AOx3. NAD. on 15L via OM HEENT: No pallor, no scleral icterus. Moist mucous membranes. NECK: No JVD, trachea midline. HEART: RRR. No murmur, no gallop. RESPIRATORY SYSTEM: Mildly tachypneic. No accessory muscle use. No wheezing. +diffuse bilateral crackles. ABDOMEN: Soft, bowel sounds present, nontender, no distention. NEURO: No focal deficits. Speech is clear. Obeys commands. Moves extremities. EXTREMITIES: No edema or erythema. Rt leg w/ ruptured blister, doesn't look infective. Results & Data Results & Data ([facility]) Vital Signs (Past 12 Hours) Vital Signs Temp Pulse Pulse Resp BP BP Pulse Ox 08/17/22 07:39 62 08/17/22 05:15 63 34 H 92 08/17/22 05:00 65 22 90 08/17/22 05:00 118/80 08/17/22 04:45 66 34 H 92 08/17/22 04:30 70 41 H 93 08/17/22 04:15 67 19 94 08/17/22 04:01 89/70 L 08/17/22 04:01 68 21 92 08/17/22 04:00 65 34 H 93 08/17/22 03:49 109/73 08/17/22 03:49 68 31 H 92 08/17/22 03:46 70 35 H 90 08/17/22 03:15 70 26 H 90 08/17/22 03:45 08/17/22 03:45 36.6 C 68 26 H 109/73 92 08/17/22 03:00 69 17 92 08/17/22 03:00 107/67 08/17/22 02:50 68 25 H 91 08/17/22 02:40 69 18 91 08/17/22 02:32 70 25 H 93 08/17/22 02:20 69 26 H 91 08/17/22 02:10 73 26 H 91 08/17/22 02:00 70 20 90 08/17/22 01:50 71 25 H 92 08/17/22 01:40 69 25 H 91 08/17/22 01:30 69 26 H 94 08/17/22 01:20 68 24 92 08/17/22 01:10 70 25 H 90 08/17/22 01:00 70 25 H 91 08/17/22 00:50 70 24 92 08/17/22 00:40 71 25 H 92 08/17/22 00:30 68 24 91 08/17/22 00:30 102/79 08/17/22 00:20 70 21 93 08/17/22 00:10 69 92 08/17/22 00:00 71 24 94 08/17/22 00:00 122/75 08/16/22 23:50 70 24 92 08/16/22 23:45 74 24 91 08/16/22 23:45 99/76 L 08/16/22 23:40 74 32 H 90 08/16/22 23:34 30 H 08/16/22 23:10 73 32 H 94 08/16/22 23:00 71 24 93 08/16/22 23:00 122/93 08/16/22 22:50 74 20 94 08/16/22 22:40 73 32 H 93 08/16/22 22:31 72 18 95 08/16/22 22:31 111/73 08/16/22 22:30 74 37 H 96 08/16/22 22:20 72 26 H 92 01/03/23 22:10 72 30 H 90 08/16/22 22:08 71 30 H 95 08/16/22 22:22 76 28 H 94 08/16/22 22:22 94 08/16/22 22:22 28 H 94 08/16/22 22:15 73 28 H 121/88 94 08/16/22 22:15 88 L 08/16/22 22:15 08/16/22 22:02 36.5 C 72 30 H 121/88 98 O2 Del Method O2 Flow Rate 08/17/22 07:39 08/17/22 05:15 08/17/22 05:00 08/17/22 05:00 08/17/22 04:45 08/17/22 04:30 08/17/22 04:15 08/17/22 04:01 08/17/22 04:01 08/17/22 04:00 08/17/22 03:49 08/17/22 03:49 08/17/22 03:46 08/17/22 03:15 08/17/22 03:45 Oxymask 15 08/17/22 03:45 Oxymask 15 08/17/22 03:00 08/17/22 03:00 08/17/22 02:50 08/17/22 02:40 08/17/22 02:32 08/17/22 02:20 08/17/22 02:10 08/17/22 02:00 08/17/22 01:50 08/17/22 01:40 08/17/22 01:30 08/17/22 01:20 08/17/22 01:10 08/17/22 01:00 08/17/22 00:50 08/17/22 00:40 08/17/22 00:30 08/17/22 00:30 08/17/22 00:20 08/17/22 00:10 08/17/22 00:00 08/17/22 00:00 08/16/22 23:50 08/16/22 23:45 08/16/22 23:45 08/16/22 23:40 08/16/22 23:34 08/16/22 23:10 08/16/22 23:00 08/16/22 23:00 08/16/22 22:50 08/16/22 22:40 08/16/22 22:31 08/16/22 22:31 08/16/22 22:30 08/16/22 22:20 08/16/22 22:10 08/16/22 22:08 08/16/22 22:22 Oxymask 12 08/16/22 22:22 Oxymask 12 08/16/22 22:22 Oxymask 12 08/16/22 22:15 Oxymask 12 08/16/22 22:15 Oxymask 6 08/16/22 22:15 Oxymask 12 08/16/22 22:02 Non-rebreather 15 Laboratory Results 08/17/22 08/17/22 08/17/22 Range/Units 08:02 08:01 07:40 WBC (4.8-10.8) K/ul RBC (3.93-5.22) M/uL Hgb (12.0-16.0) g/dl Hct (34.1-44.9) % MCV (80.0-100.0) fL MCH (25.0-34.0) pg MCHC (32.0-36.0) g/dL RDW Std Deviation (36.4-46.3) fL RDW Coeff of Lulu (11.5-14.5) % Plt Count (130-400) K/uL MPV (9.4-12.3) fL Immature Gran % (Auto) % Neut % (Auto) % Lymph % (Auto) % Curry % (Auto) % Eos % (Auto) % Baso % (Auto) % Neut # (Auto) (1.4-6.5) K/uL Lymph # (Auto) (1.2-3.4) K/uL Curry # (Auto) (0.24-0.82) K/uL Eos # (Auto) (0-0.50) K/uL Baso # (Auto) (0-0.2) K/uL Immature Gran # (Auto) (0.00-0.02) K/uL Absolute Nucleated RBC (0-0) K/uL Nucleated RBC % (auto) % Anisocytosis Tear Drop Cells Echinocytes Acanthocytes (Spur) PT (9.0-12.0) Seconds INR (0.9-1.1) APTT (21.0-31.0) Seconds PTT Ratio Sodium (136-145) mmol/L Potassium (3.5-5.1) mmol/L Chloride (98-107) mmol/L Carbon Dioxide (21-32) mmol/L Anion Gap (3-11) BUN (6-23) mg/dl Creatinine (0.6-1.2) mg/dl Est Cr Clr Drug Dosing ml/min Est GFR ( Amer) ml/min Est GFR (Non-Af Amer) ml/min BUN/Creatinine Ratio (10-20) Glucose (70-99(Fasting)) mg/dl POC Glucose 126 H 62 L* (70-99) mg/dl Calcium (8.5-10.1) mg/dl Phosphorus (2.5-4.9) mg/dl Magnesium (1.7-2.4) mg/dl Total Bilirubin (0.2-1.0) mg/dl Direct Bilirubin (0-0.2) mg/dl AST (13-39) U/L ALT (7-52) U/L Alkaline Phosphatase (34-104) U/L Troponin I High Sens Pending (0-14) pg/ml B-Natriuretic Peptide (0-100) pg/ml Total Protein (6.0-8.3) gm/dl Albumin (3.4-5.0) gm/dl Globulin (2.5-4.0) gm/dl Albumin/Globulin Ratio (0.9-2) Urine Color Urine Appearance (Clear) Urine pH (4.5-7.5) Ur Specific Derwood (1.000-1.030) Urine Protein (Negative) Urine Glucose (UA) (Negative) Urine Ketones (Negative) Urine Blood (Negative) Urine Nitrite (Negative) Urine Bilirubin (Negative) Urine Urobilinogen (Negative) Ur Leukocyte Esterase (Negative) Urine WBC (Auto) (0-5) /hpf Urine RBC (Auto) (0-4) /hpf U Hyaline Cast (Auto) (0-5) /lpf U Epithel Cells (Auto) (0-5) /lpf Urine Bacteria (Auto) (Negative) Nasal Screen MRSA (PCR) (Negative) Stl C. cayetanensis PCR (NotDetected) Stool Rotavirus A PCR (NotDetected) Stl Adenov F 40/41 PCR (NotDetected) Stool Astrovirus (PCR) (NotDetected) Stool Campylobacter PCR (NotDetected) Stl C. diff Tox B Gene (Neg) Stool Cryptosporidium PCR (NotDetected) Stl E.coli Shiga Tox PCR (NotDetected) Stl Enterotoxigenic E PCR (NotDetected) Stool EPEC (PCR) (NotDetected) Stool EAEC (PCR) (NotDetected) Stl E. histolytica PCR (NotDetected) Stool Giardia Lamblia PCR (NotDetected) Stool Salmonella PCR (NotDetected) Stool Sapovirus (PCR) (NotDetected) Stl P. shigelloides PCR (NotDetected) Stl Shigella/EIEC PCR (NotDetected) St Y.enterocolitica PCR (NotDetected) Stool Vibrio (PCR) (NotDetected) Stl Vibrio cholerae PCR (NotDetected) Stl Norovirus GI/GII PCR (NotDetected) SARS-CoV-2 (PCR) (Negative) Influenza Type A (PCR) (Neg) Influenza Type B (PCR) (Neg) RSV (RT-PCR) (Neg) 08/17/22 08/17/22 08/17/22 Range/Units 07:39 07:00 07:00 WBC (4.8-10.8) K/ul RBC (3.93-5.22) M/uL Hgb (12.0-16.0) g/dl Hct (34.1-44.9) % MCV (80.0-100.0) fL MCH (25.0-34.0) pg MCHC (32.0-36.0) g/dL RDW Std Deviation (36.4-46.3) fL RDW Coeff of Lulu (11.5-14.5) % Plt Count (130-400) K/uL MPV (9.4-12.3) fL Immature Gran % (Auto) % Neut % (Auto) % Lymph % (Auto) % Curry % (Auto) % Eos % (Auto) % Baso % (Auto) % Neut # (Auto) (1.4-6.5) K/uL Lymph # (Auto) (1.2-3.4) K/uL Curry # (Auto) (0.24-0.82) K/uL Eos # (Auto) (0-0.50) K/uL Baso # (Auto) (0-0.2) K/uL Immature Gran # (Auto) (0.00-0.02) K/uL Absolute Nucleated RBC (0-0) K/uL Nucleated RBC % (auto) % Anisocytosis Tear Drop Cells Echinocytes Acanthocytes (Spur) PT (9.0-12.0) Seconds INR (0.9-1.1) APTT (21.0-31.0) Seconds PTT Ratio Sodium (136-145) mmol/L Potassium (3.5-5.1) mmol/L Chloride (98-107) mmol/L Carbon Dioxide (21-32) mmol/L Anion Gap (3-11) BUN (6-23) mg/dl Creatinine (0.6-1.2) mg/dl Est Cr Clr Drug Dosing ml/min Est GFR ( Amer) ml/min Est GFR (Non-Af Amer) ml/min BUN/Creatinine Ratio (10-20) Glucose (70-99(Fasting)) mg/dl POC Glucose 53 L* (70-99) mg/dl Calcium (8.5-10.1) mg/dl Phosphorus (2.5-4.9) mg/dl Magnesium (1.7-2.4) mg/dl Total Bilirubin (0.2-1.0) mg/dl Direct Bilirubin (0-0.2) mg/dl AST (13-39) U/L ALT (7-52) U/L Alkaline Phosphatase (34-104) U/L Troponin I High Sens (0-14) pg/ml B-Natriuretic Peptide (0-100) pg/ml Total Protein (6.0-8.3) gm/dl Albumin (3.4-5.0) gm/dl Globulin (2.5-4.0) gm/dl Albumin/Globulin Ratio (0.9-2) Urine Color Urine Appearance (Clear) Urine pH (4.5-7.5) Ur Specific Derwood (1.000-1.030) Urine Protein (Negative) Urine Glucose (UA) (Negative) Urine Ketones (Negative) Urine Blood (Negative) Urine Nitrite (Negative) Urine Bilirubin (Negative) Urine Urobilinogen (Negative) Ur Leukocyte Esterase (Negative) Urine WBC (Auto) (0-5) /hpf Urine RBC (Auto) (0-4) /hpf U Hyaline Cast (Auto) (0-5) /lpf U Epithel Cells (Auto) (0-5) /lpf Urine Bacteria (Auto) (Negative) Nasal Screen MRSA (PCR) (Negative) Stl C. cayetanensis PCR Not Detected (NotDetected) Stool Rotavirus A PCR Not Detected (NotDetected) Stl Adenov F 40/41 PCR Not Detected (NotDetected) Stool Astrovirus (PCR) Not Detected (NotDetected) Stool Campylobacter PCR Not Detected (NotDetected) Stl C. diff Tox B Gene Negative Cdiff Gene (Neg) Stool Cryptosporidium PCR Not Detected (NotDetected) Stl E.coli Shiga Tox PCR Not Detected (NotDetected) Stl Enterotoxigenic E PCR Not Detected (NotDetected) Stool EPEC (PCR) Not Detected (NotDetected) Stool EAEC (PCR) Not Detected (NotDetected) Stl E. histolytica PCR Not Detected (NotDetected) Stool Giardia Lamblia PCR Not Detected (NotDetected) Stool Salmonella PCR Not Detected (NotDetected) Stool Sapovirus (PCR) Not Detected (NotDetected) Stl P. shigelloides PCR Not Detected (NotDetected) Stl Shigella/EIEC PCR Not Detected (NotDetected) St Y.enterocolitica PCR Not Detected (NotDetected) Stool Vibrio (PCR) Not Detected (NotDetected) Stl Vibrio cholerae PCR Not Detected (NotDetected) Stl Norovirus GI/GII PCR Not Detected (NotDetected) SARS-CoV-2 (PCR) (Negative) Influenza Type A (PCR) (Neg) Influenza Type B (PCR) (Neg) RSV (RT-PCR) (Neg) 08/17/22 08/17/22 08/17/22 Range/Units 04:43 04:18 04:00 WBC (4.8-10.8) K/ul RBC (3.93-5.22) M/uL Hgb (12.0-16.0) g/dl Hct (34.1-44.9) % MCV (80.0-100.0) fL MCH (25.0-34.0) pg MCHC (32.0-36.0) g/dL RDW Std Deviation (36.4-46.3) fL RDW Coeff of Lulu (11.5-14.5) % Plt Count (130-400) K/uL MPV (9.4-12.3) fL Immature Gran % (Auto) % Neut % (Auto) % Lymph % (Auto) % Curry % (Auto) % Eos % (Auto) % Baso % (Auto) % Neut # (Auto) (1.4-6.5) K/uL Lymph # (Auto) (1.2-3.4) K/uL Curry # (Auto) (0.24-0.82) K/uL Eos # (Auto) (0-0.50) K/uL Baso # (Auto) (0-0.2) K/uL Immature Gran # (Auto) (0.00-0.02) K/uL Absolute Nucleated RBC (0-0) K/uL Nucleated RBC % (auto) % Anisocytosis Tear Drop Cells Echinocytes Acanthocytes (Spur) PT (9.0-12.0) Seconds INR (0.9-1.1) APTT (21.0-31.0) Seconds PTT Ratio Sodium (136-145) mmol/L Potassium (3.5-5.1) mmol/L Chloride (98-107) mmol/L Carbon Dioxide (21-32) mmol/L Anion Gap (3-11) BUN (6-23) mg/dl Creatinine (0.6-1.2) mg/dl Est Cr Clr Drug Dosing ml/min Est GFR ( Amer) ml/min Est GFR (Non-Af Amer) ml/min BUN/Creatinine Ratio (10-20) Glucose (70-99(Fasting)) mg/dl POC Glucose (70-99) mg/dl Calcium (8.5-10.1) mg/dl Phosphorus (2.5-4.9) mg/dl Magnesium (1.7-2.4) mg/dl Total Bilirubin (0.2-1.0) mg/dl Direct Bilirubin (0-0.2) mg/dl AST (13-39) U/L ALT (7-52) U/L Alkaline Phosphatase (34-104) U/L Troponin I High Sens (0-14) pg/ml B-Natriuretic Peptide 3561 H (0-100) pg/ml Total Protein (6.0-8.3) gm/dl Albumin (3.4-5.0) gm/dl Globulin (2.5-4.0) gm/dl Albumin/Globulin Ratio (0.9-2) Urine Color Yellow Urine Appearance Cloudy A (Clear) Urine pH 5.5 (4.5-7.5) Ur Specific Derwood > 1.045 H (1.000-1.030) Urine Protein 2+ H (Negative) Urine Glucose (UA) Negative (Negative) Urine Ketones Negative (Negative) Urine Blood Trace H (Negative) Urine Nitrite Positive A (Negative) Urine Bilirubin Negative (Negative) Urine Urobilinogen Negative (Negative) Ur Leukocyte Esterase Negative (Negative) Urine WBC (Auto) 5-10 H (0-5) /hpf Urine RBC (Auto) 0-4 (0-4) /hpf U Hyaline Cast (Auto) 1-5 (0-5) /lpf U Epithel Cells (Auto) >30 H (0-5) /lpf Urine Bacteria (Auto) 4+ H (Negative) Nasal Screen MRSA (PCR) Negative (Negative) Stl C. cayetanensis PCR (NotDetected) Stool Rotavirus A PCR (NotDetected) Stl Adenov F 40/41 PCR (NotDetected) Stool Astrovirus (PCR) (NotDetected) Stool Campylobacter PCR (NotDetected) Stl C. diff Tox B Gene (Neg) Stool Cryptosporidium PCR (NotDetected) Stl E.coli Shiga Tox PCR (NotDetected) Stl Enterotoxigenic E PCR (NotDetected) Stool EPEC (PCR) (NotDetected) Stool EAEC (PCR) (NotDetected) Stl E. histolytica PCR (NotDetected) Stool Giardia Lamblia PCR (NotDetected) Stool Salmonella PCR (NotDetected) Stool Sapovirus (PCR) (NotDetected) Stl P. shigelloides PCR (NotDetected) Stl Shigella/EIEC PCR (NotDetected) St Y.enterocolitica PCR (NotDetected) Stool Vibrio (PCR) (NotDetected) Stl Vibrio cholerae PCR (NotDetected) Stl Norovirus GI/GII PCR (NotDetected) SARS-CoV-2 (PCR) (Negative) Influenza Type A (PCR) (Neg) Influenza Type B (PCR) (Neg) RSV (RT-PCR) (Neg) 08/17/22 08/17/22 08/17/22 Range/Units 02:36 02:35 02:35 WBC 7.35 (4.8-10.8) K/ul RBC 5.23 H (3.93-5.22) M/uL Hgb 14.8 (12.0-16.0) g/dl Hct 45.1 H (34.1-44.9) % MCV 86.2 (80.0-100.0) fL MCH 28.3 (25.0-34.0) pg MCHC 32.8 (32.0-36.0) g/dL RDW Std Deviation 61.7 H (36.4-46.3) fL RDW Coeff of Lulu 20.7 H (11.5-14.5) % Plt Count 259 (130-400) K/uL MPV 10.4 (9.4-12.3) fL Immature Gran % (Auto) 0.8 % Neut % (Auto) 75.3 % Lymph % (Auto) 15.9 % Curry % (Auto) 7.3 % Eos % (Auto) 0.3 % Baso % (Auto) 0.4 % Neut # (Auto) 5.53 (1.4-6.5) K/uL Lymph # (Auto) 1.17 L (1.2-3.4) K/uL Curry # (Auto) 0.54 (0.24-0.82) K/uL Eos # (Auto) 0.02 (0-0.50) K/uL Baso # (Auto) 0.03 (0-0.2) K/uL Immature Gran # (Auto) 0.06 H (0.00-0.02) K/uL Absolute Nucleated RBC 0.13 H (0-0) K/uL Nucleated RBC % (auto) 1.8 % Anisocytosis Present Tear Drop Cells Echinocytes 1+ Acanthocytes (Spur) PT (9.0-12.0) Seconds INR (0.9-1.1) APTT (21.0-31.0) Seconds PTT Ratio Sodium 132 L (136-145) mmol/L Potassium 4.4 D (3.5-5.1) mmol/L Chloride 100 (98-107) mmol/L Carbon Dioxide 23 (21-32) mmol/L Anion Gap 9 (3-11) BUN 29 H (6-23) mg/dl Creatinine 1.19 (0.6-1.2) mg/dl Est Cr Clr Drug Dosing 56.5 ml/min Est GFR ( Amer) 59.5 ml/min Est GFR (Non-Af Amer) 51.4 ml/min BUN/Creatinine Ratio 24.4 H (10-20) Glucose 102 H (70-99(Fasting)) mg/dl POC Glucose (70-99) mg/dl Calcium 9.5 (8.5-10.1) mg/dl Phosphorus 5.2 H (2.5-4.9) mg/dl Magnesium 1.9 (1.7-2.4) mg/dl Total Bilirubin 1.3 H (0.2-1.0) mg/dl Direct Bilirubin 0.3 H (0-0.2) mg/dl AST 13 (13-39) U/L ALT 13 (7-52) U/L Alkaline Phosphatase 79 (34-104) U/L Troponin I High Sens (0-14) pg/ml B-Natriuretic Peptide (0-100) pg/ml Total Protein 6.7 (6.0-8.3) gm/dl Albumin 3.7 (3.4-5.0) gm/dl Globulin (2.5-4.0) gm/dl Albumin/Globulin Ratio (0.9-2) Urine Color Urine Appearance (Clear) Urine pH (4.5-7.5) Ur Specific Derwood (1.000-1.030) Urine Protein (Negative) Urine Glucose (UA) (Negative) Urine Ketones (Negative) Urine Blood (Negative) Urine Nitrite (Negative) Urine Bilirubin (Negative) Urine Urobilinogen (Negative) Ur Leukocyte Esterase (Negative) Urine WBC (Auto) (0-5) /hpf Urine RBC (Auto) (0-4) /hpf U Hyaline Cast (Auto) (0-5) /lpf U Epithel Cells (Auto) (0-5) /lpf Urine Bacteria (Auto) (Negative) Nasal Screen MRSA (PCR) (Negative) Stl C. cayetanensis PCR (NotDetected) Stool Rotavirus A PCR (NotDetected) Stl Adenov F 40/41 PCR (NotDetected) Stool Astrovirus (PCR) (NotDetected) Stool Campylobacter PCR (NotDetected) Stl C. diff Tox B Gene (Neg) Stool Cryptosporidium PCR (NotDetected) Stl E.coli Shiga Tox PCR (NotDetected) Stl Enterotoxigenic E PCR (NotDetected) Stool EPEC (PCR) (NotDetected) Stool EAEC (PCR) (NotDetected) Stl E. histolytica PCR (NotDetected) Stool Giardia Lamblia PCR (NotDetected) Stool Salmonella PCR (NotDetected) Stool Sapovirus (PCR) (NotDetected) Stl P. shigelloides PCR (NotDetected) Stl Shigella/EIEC PCR (NotDetected) St Y.enterocolitica PCR (NotDetected) Stool Vibrio (PCR) (NotDetected) Stl Vibrio cholerae PCR (NotDetected) Stl Norovirus GI/GII PCR (NotDetected) SARS-CoV-2 (PCR) (Negative) Influenza Type A (PCR) (Neg) Influenza Type B (PCR) (Neg) RSV (RT-PCR) (Neg) 08/17/22 08/16/22 08/16/22 Range/Units 02:35 23:47 22:00 WBC (4.8-10.8) K/ul RBC (3.93-5.22) M/uL Hgb (12.0-16.0) g/dl Hct (34.1-44.9) % MCV (80.0-100.0) fL MCH (25.0-34.0) pg MCHC (32.0-36.0) g/dL RDW Std Deviation (36.4-46.3) fL RDW Coeff of Lulu (11.5-14.5) % Plt Count (130-400) K/uL MPV (9.4-12.3) fL Immature Gran % (Auto) % Neut % (Auto) % Lymph % (Auto) % Curry % (Auto) % Eos % (Auto) % Baso % (Auto) % Neut # (Auto) (1.4-6.5) K/uL Lymph # (Auto) (1.2-3.4) K/uL Curry # (Auto) (0.24-0.82) K/uL Eos # (Auto) (0-0.50) K/uL Baso # (Auto) (0-0.2) K/uL Immature Gran # (Auto) (0.00-0.02) K/uL Absolute Nucleated RBC (0-0) K/uL Nucleated RBC % (auto) % Anisocytosis Tear Drop Cells Echinocytes Acanthocytes (Spur) PT (9.0-12.0) Seconds INR (0.9-1.1) APTT (21.0-31.0) Seconds PTT Ratio Sodium 130 L (136-145) mmol/L Potassium 5.6 H (3.5-5.1) mmol/L Chloride 98 (98-107) mmol/L Carbon Dioxide 22 (21-32) mmol/L Anion Gap 10 (3-11) BUN 30 H (6-23) mg/dl Creatinine 1.45 H (0.6-1.2) mg/dl Est Cr Clr Drug Dosing 46.4 ml/min Est GFR ( Amer) 46.9 ml/min Est GFR (Non-Af Amer) 40.4 ml/min BUN/Creatinine Ratio 20.7 H (10-20) Glucose 247 H (70-99(Fasting)) mg/dl POC Glucose (70-99) mg/dl Calcium 9.3 (8.5-10.1) mg/dl Phosphorus (2.5-4.9) mg/dl Magnesium 2.1 (1.7-2.4) mg/dl Total Bilirubin 1.6 H (0.2-1.0) mg/dl Direct Bilirubin (0-0.2) mg/dl AST 13 (13-39) U/L ALT 14 (7-52) U/L Alkaline Phosphatase 83 (34-104) U/L Troponin I High Sens 405.9 H* D 243.9 H* (0-14) pg/ml B-Natriuretic Peptide (0-100) pg/ml Total Protein 7.4 (6.0-8.3) gm/dl Albumin 4.0 (3.4-5.0) gm/dl Globulin 3.4 (2.5-4.0) gm/dl Albumin/Globulin Ratio 1.2 (0.9-2) Urine Color Urine Appearance (Clear) Urine pH (4.5-7.5) Ur Specific Derwood (1.000-1.030) Urine Protein (Negative) Urine Glucose (UA) (Negative) Urine Ketones (Negative) Urine Blood (Negative) Urine Nitrite (Negative) Urine Bilirubin (Negative) Urine Urobilinogen (Negative) Ur Leukocyte Esterase (Negative) Urine WBC (Auto) (0-5) /hpf Urine RBC (Auto) (0-4) /hpf U Hyaline Cast (Auto) (0-5) /lpf U Epithel Cells (Auto) (0-5) /lpf Urine Bacteria (Auto) (Negative) Nasal Screen MRSA (PCR) (Negative) Stl C. cayetanensis PCR (NotDetected) Stool Rotavirus A PCR (NotDetected) Stl Adenov F 40/41 PCR (NotDetected) Stool Astrovirus (PCR) (NotDetected) Stool Campylobacter PCR (NotDetected) Stl C. diff Tox B Gene (Neg) Stool Cryptosporidium PCR (NotDetected) Stl E.coli Shiga Tox PCR (NotDetected) Stl Enterotoxigenic E PCR (NotDetected) Stool EPEC (PCR) (NotDetected) Stool EAEC (PCR) (NotDetected) Stl E. histolytica PCR (NotDetected) Stool Giardia Lamblia PCR (NotDetected) Stool Salmonella PCR (NotDetected) Stool Sapovirus (PCR) (NotDetected) Stl P. shigelloides PCR (NotDetected) Stl Shigella/EIEC PCR (NotDetected) St Y.enterocolitica PCR (NotDetected) Stool Vibrio (PCR) (NotDetected) Stl Vibrio cholerae PCR (NotDetected) Stl Norovirus GI/GII PCR (NotDetected) SARS-CoV-2 (PCR) NEGATIVE (Negative) Influenza Type A (PCR) Negative (Neg) Influenza Type B (PCR) Negative (Neg) RSV (RT-PCR) Negative (Neg) 08/16/22 08/16/22 Range/Units 22:00 22:00 WBC 9.36 (4.8-10.8) K/ul RBC 5.42 H (3.93-5.22) M/uL Hgb 15.2 (12.0-16.0) g/dl Hct 47.8 H (34.1-44.9) % MCV 88.2 (80.0-100.0) fL MCH 28.0 (25.0-34.0) pg MCHC 31.8 L (32.0-36.0) g/dL RDW Std Deviation 63.7 H (36.4-46.3) fL RDW Coeff of Lulu 21.0 H (11.5-14.5) % Plt Count 277 (130-400) K/uL MPV 11.3 (9.4-12.3) fL Immature Gran % (Auto) 1.0 % Neut % (Auto) 81.9 % Lymph % (Auto) 10.4 % Curry % (Auto) 6.0 % Eos % (Auto) 0.4 % Baso % (Auto) 0.3 % Neut # (Auto) 7.67 H (1.4-6.5) K/uL Lymph # (Auto) 0.97 L (1.2-3.4) K/uL Curry # (Auto) 0.56 (0.24-0.82) K/uL Eos # (Auto) 0.04 (0-0.50) K/uL Baso # (Auto) 0.03 (0-0.2) K/uL Immature Gran # (Auto) 0.09 H (0.00-0.02) K/uL Absolute Nucleated RBC 0.10 H (0-0) K/uL Nucleated RBC % (auto) 1.1 % Anisocytosis Present Tear Drop Cells 1+ Echinocytes 3+ Acanthocytes (Spur) 2+ PT 12.3 H (9.0-12.0) Seconds INR 1.2 H (0.9-1.1) APTT 27.1 (21.0-31.0) Seconds PTT Ratio 1.0 Sodium (136-145) mmol/L Potassium (3.5-5.1) mmol/L Chloride (98-107) mmol/L Carbon Dioxide (21-32) mmol/L Anion Gap (3-11) BUN (6-23) mg/dl Creatinine (0.6-1.2) mg/dl Est Cr Clr Drug Dosing ml/min Est GFR ( Amer) ml/min Est GFR (Non-Af Amer) ml/min BUN/Creatinine Ratio (10-20) Glucose (70-99(Fasting)) mg/dl POC Glucose (70-99) mg/dl Calcium (8.5-10.1) mg/dl Phosphorus (2.5-4.9) mg/dl Magnesium (1.7-2.4) mg/dl Total Bilirubin (0.2-1.0) mg/dl Direct Bilirubin (0-0.2) mg/dl AST (13-39) U/L ALT (7-52) U/L Alkaline Phosphatase (34-104) U/L Troponin I High Sens (0-14) pg/ml B-Natriuretic Peptide (0-100) pg/ml Total Protein (6.0-8.3) gm/dl Albumin (3.4-5.0) gm/dl Globulin (2.5-4.0) gm/dl Albumin/Globulin Ratio (0.9-2) Urine Color Urine Appearance (Clear) Urine pH (4.5-7.5) Ur Specific Derwood (1.000-1.030) Urine Protein (Negative) Urine Glucose (UA) (Negative) Urine Ketones (Negative) Urine Blood (Negative) Urine Nitrite (Negative) Urine Bilirubin (Negative) Urine Urobilinogen (Negative) Ur Leukocyte Esterase (Negative) Urine WBC (Auto) (0-5) /hpf Urine RBC (Auto) (0-4) /hpf U Hyaline Cast (Auto) (0-5) /lpf U Epithel Cells (Auto) (0-5) /lpf Urine Bacteria (Auto) (Negative) Nasal Screen MRSA (PCR) (Negative) Stl C. cayetanensis PCR (NotDetected) Stool Rotavirus A PCR (NotDetected) Stl Adenov F 40/41 PCR (NotDetected) Stool Astrovirus (PCR) (NotDetected) Stool Campylobacter PCR (NotDetected) Stl C. diff Tox B Gene (Neg) Stool Cryptosporidium PCR (NotDetected) Stl E.coli Shiga Tox PCR (NotDetected) Stl Enterotoxigenic E PCR (NotDetected) Stool EPEC (PCR) (NotDetected) Stool EAEC (PCR) (NotDetected) Stl E. histolytica PCR (NotDetected) Stool Giardia Lamblia PCR (NotDetected) Stool Salmonella PCR (NotDetected) Stool Sapovirus (PCR) (NotDetected) Stl P. shigelloides PCR (NotDetected) Stl Shigella/EIEC PCR (NotDetected) St Y.enterocolitica PCR (NotDetected) Stool Vibrio (PCR) (NotDetected) Stl Vibrio cholerae PCR (NotDetected) Stl Norovirus GI/GII PCR (NotDetected) SARS-CoV-2 (PCR) (Negative) Influenza Type A (PCR) (Neg) Influenza Type B (PCR) (Neg) RSV (RT-PCR) (Neg) Resident Activity Tracking Resident Involvement: Resident Care Provided Care Provided: Adult Hospital Medicine (1) Pulmonary embolism Acute cor pulmonale presence: unspecified Chronicity: acute Pulmonary embolism type: other Qualified Code(s): I26.99 - Other pulmonary embolism without acute cor pulmonale
--- NOTE | 2022-08-17 09:55 | Ultrasound Report ---
BILATERAL LOWER EXTREMITY VENOUS DOPPLER CLINICAL HISTORY: Possible pulmonary emboli. r/o DVT COMPARISON STUDY: No previous studies for comparison. TECHNIQUE: Sonography of the deep venous system of the bilateral lower extremities was performed. Co mpression and augmentation were evaluated. FINDINGS: The bilateral common femoral, superficial femoral and popliteal veins were compressible. A ugmentation was normal. Flow was shown within the deep calf vessels. IMPRESSION: No evidence of deep venous thrombus within the bilateral lower extremities. ACT 112: Negative or not required by law. Electronically signed by: Matt King M.D. 08/17/2022 9:53 AM
[2022-08-17 10:37] LABS: INR 1.2 (0.9-1.1); Partial Thromboplastin Ratio 2.9; Prothrombin Time 12.8 Seconds (9.0-12.0)
[2022-08-17 10:41] LABS: Partial Thromboplastin Time 81.1 Seconds (21.0-31.0)
[2022-08-17] MEDS: LANTUS PER UNIT CHARGE SQ SCH (14:11)
[2022-08-17] MEDS ORDERED: OPTIRAY 320 500ml IV ONE (14:57)
--- NOTE | 2022-08-17 14:57 | Electrocardiogram Report ---
Test Reason : Blood Pressure : / mmHG Vent. Rate : 071 BPM Atrial Rate : 071 BPM P-R Int : 156 ms QRS Dur : 084 ms QT Int : 402 ms P-R-T Axes : 048 117 -45 degrees QTc Int : 436 ms Poor data quality, interpretation may be adversely affected Normal sinus rhythm Biatrial enlargement Left posterior fascicular block Abnormal ECG When compared with ECG of 23-JUL-2022 19:47, Inverted T waves have replaced nonspecific T wave abnormality in Anterolateral leads Confirmed by Roscoe Sanderson ([id number]) on 08/17/2022 2:56:45 PM Referred By: REFERRED SELF Confirmed By:Roscoe Sanderson
--- NOTE | 2022-08-17 15:01 | Electrocardiogram Report ---
Test Reason : Blood Pressure : / mmHG Vent. Rate : 064 BPM Atrial Rate : 064 BPM P-R Int : 144 ms QRS Dur : 090 ms QT Int : 404 ms P-R-T Axes : 030 109 -71 degrees QTc Int : 416 ms Normal sinus rhythm Biatrial enlargement Rightward axis Abnormal ECG When compared with ECG of 16-AUG-2022 22:03, (unconfirmed) No significant change was found Confirmed by Roscoe Sanderson ([id number]) on 08/17/2022 3:01:02 PM Referred By: REFERRED SELF Confirmed By:Roscoe Sanderson
--- NOTE | 2022-08-17 15:36 | CT Scan Report ---
CT ANGIOGRAPHY OF THE CHEST, PULMONARY EMBOLUS PROTOCOL CLINICAL HISTORY: Possible pulmonary embolus. Shortness of breath. COMPARISON STUDY: Chest CT August 16, 2022. TECHNIQUE: Following IV administration of 115 mL of Optiray, helical axial images of the chest were o btained utilizing the pulmonary embolus protocol. Maximal intensity projections and sagittal and cor onal reformats were viewed on an independent 3D workstation. IV contrast was administered without co mplication. Automated exposure control was utilized for the study. A dose lowering technique was ut ilized adhering to the principles of ALARA. CT DOSE: 504.24 mGycm FINDINGS: This study remains compromised by mixing artifact. Apparent filling defects within right-s ided pulmonary arteries are likely due to mixing artifact. The appearance is similar to prior CT. Car diomegaly is again noted with dilatation of the right heart chambers and evidence for right heart dys function with dilatation of the IVC and hepatic veins. Dilatation of the ascending aorta is unchanged . No pneumothorax or pleural effusion is present. Pulmonary fibrosis is again noted. A ground glass o pacity within the right lower lobe is unchanged. The appearance of the chest is unchanged. IMPRESSION: 1. Exam compromised by mixing artifact. Apparent filling defects within right-sided pulmonary arterie s likely represent mixing artifact. Pulmonary emboli are considered less likely but cannot be complet madiha excluded. Findings discussed with Dr. Brooks at time of dictation. 2. Evidence for pulmonary arterial hypertension with dilatation of the right heart chambers and evide nce for right heart dysfunction. This is likely due to underlying pulmonary fibrosis. 3. 4.5 x 2.2 x 1.7 cm ground glass opacity within the right lower lobe. This is indeterminate. A foll ow up chest CT in 3 months is recommended. ACT 112: Negative or not required by law. Electronically signed by: Matt King M.D. 08/17/2022 3:34 PM
--- NOTE | 2022-08-17 15:59 | Communication Note ---
Date of Service: August 17, 2022 Pt was seen and examined for follow up with SOB Lying in bed with mild respiratory distress with Sister at bedside Pt said that her breathing is slightly better compare to yesterday She continues to require high flow oxygen. She said that she used 3L NC oxygen at baseline Denies any chest pain, palpitation and fever Exam GENERAL: AOx3. NAD. on 15L via OM HEENT: No pallor, no scleral icterus. Moist mucous membranes. NECK: No JVD, trachea midline. HEART: RRR. No murmur, no gallop. RESPIRATORY SYSTEM: No accessory muscle use. +coarse BS ABDOMEN: Soft, bowel sounds present, nontender, no distention. NEURO: No focal deficits. Speech is clear. followed commands. Moves extremities. EXTREMITIES: No edema or erythema. A/P Acute on chronic respiratory failure Pulmonary embolism CTA chest showed Apparent filling defects within right-sided pulmonary arteries likely represent mixing artifact. Doppler of LE extremities showed no evidence of deep venous thrombus within the bilateral lower extremities. Continue IV heparin drip Continue high flow oxygen Continue monitor in the ICU ECHO showed right ventricle is severely dilated. RV systolic function is severely reduced Mild concentric LVH with EF 65 to 70 % Continue monitor closely in the ICU Abnormal UA UA positive for Nitrite, WBC and bacteria Continue IV Ceftriaxone Will follow urine cx Elevated troponin Possible demand ischemia due to hypoxia and PE Troponin peaked to 993.9, now trending down On Heparin drip for PE Continue metoprolol and statin CODE status Full code
--- NOTE | 2022-08-17 17:03 | Billing Data ---
Date of Service August 17, 2022 Coding Level of Care Code Critical Care 1st 30-74 mins Time Spent (min) 55
[2022-08-17 18:12] LABS: Partial Thromboplastin Ratio 2.5
[2022-08-17 18:23] LABS: Partial Thromboplastin Time 69.8 Seconds (21.0-31.0)
[2022-08-17] MEDS: acetaZOLAMIDE 250 MG TAB PO SCH (19:58)
[2022-08-17] MEDS: FUROSEMIDE 40 MG/4 ML VIAL IV SCH (20:01)
[2022-08-17] MEDS: SENNA 8.6 MG TAB PO SCH (20:07)
[2022-08-18 01:20] LABS: Partial Thromboplastin Ratio 2.4
[2022-08-18] MEDS: HEPARIN SODIUM/DEXTROSE 25,000 UNITS/500 ML BAG IV SCH ×2 (03:03→21:58)
[2022-08-18] MEDS: cefTRIAXone SODIUM 2,000 MG in DEXTROSE 5% 50 ML IV SCH (03:10)
[2022-08-18] MEDS: LEVOTHYROXINE SODIUM 88 MCG TABLET PO SCH (04:52)
[2022-08-18 06:18] LABS: Basophils # (auto) 0.08 K/uL (0-0.2); Basophils % (auto) 0.8 %; Eosinophils # (auto) 0.23 K/uL (0-0.50); Eosinophils % (auto) 2.4 %; Hematocrit (blood only) 45.4 % (34.1-44.9); Hemoglobin 15.2 g/dl (12.0-16.0); Immature Granulocytes # (auto) 0.08 K/uL (0.00-0.02); Immature Granulocytes % (auto) 0.8 %; Lymphocytes # (auto) 0.81 K/uL (1.2-3.4); Lymphocytes % (auto) 8.3 %; Mean Corpuscular Hemoglobin 27.8 pg (25.0-34.0); Mean Corpuscular Hgb Conc 33.5 g/dL (32.0-36.0); Mean Corpuscular Volume 83.2 fL (80.0-100.0); Mean Platelet Volume 11.5 fL (9.4-12.3); Monocytes % (auto) 10.2 %; Neutrophils # (auto) 7.57 K/uL (1.4-6.5); Neutrophils % (auto) 77.5 %; Nucleated RBC # (auto) 0.03 K/uL (0-0); Nucleated RBC % (auto) 0.3 %; Platelet Count 217 K/uL (130-400); RDW Coefficient of Variation 20.9 % (11.5-14.5); RDW Standard Deviation 60.2 fL (36.4-46.3); Red Blood Count 5.46 M/uL (3.93-5.22); White Blood Count 9.77 K/ul (4.8-10.8)
[2022-08-18 06:33] LABS: Partial Thromboplastin Ratio 2.3
[2022-08-18 06:49] LABS: Albumin Level 3.6 gm/dl (3.4-5.0); BUN Creatinine Ratio 17.2 (10-20); Bilirubin Direct 0.3 mg/dl (0-0.2); Bilirubin,Total 1.1 mg/dl (0.2-1.0); Calcium 9.1 mg/dl (8.5-10.1); Est GFR (African American) 86.9 ml/min; Magnesium 1.9 mg/dl (1.7-2.4); Phosphorus 5.2 mg/dl (2.5-4.9); Potassium 3.8 mmol/L (3.5-5.1); Total Protein 6.8 gm/dl (6.0-8.3)
[2022-08-18 06:52] LABS: Partial Thromboplastin Time 64.1 Seconds (21.0-31.0)
[2022-08-18 06:54] LABS: Anisocytosis Present; Echinocytes 1+; Polychromasia 1+
[2022-08-18] MEDS ORDERED: POTASSIUM CHLORIDE CRTAB 20 MEQ TABCR PO STA (07:42)
[2022-08-18] MEDS: ICU Protocol for HYPERglycemia SCH ×3 (07:55→16:58)
[2022-08-18] MEDS: INSULIN ASPART PER UNIT SC SCH ×4 (07:58→22:48)
[2022-08-18] MEDS ORDERED: SODIUM CHLORIDE 0.65% NA SOLN 45 ML (OCEAN) PRN (08:06)
--- NOTE | 2022-08-18 08:34 | Critical Care Progress Note ---
Date of Service August 18, 2022 Assessment & Plan (1) Pulmonary embolism: Plan: Reason Critically Ill: 57-year-old female past medical history ILD, chronic hypoxia on 3L nasal cannula presents to the ICU with acute on chronic hypoxia respiratory failure and suspected extensive pulmonary embolism. Neuro - [facility] ICU: Negative Cardiac - Pulmonary hypertension/cor pulmonale -Previous echo with RV dilated and severely reduced RV function. Repeat echo with no significant change. -CT shows worsening pulmonary arterial hypertension with dilatation of the right heart chambers and evidence for right heart dysfunction. -BNP 3500. Trops peaked at 990. -Hold metoprolol given possible PE with worsening RV strain. -Started on lasix 40mg bid IV and acetazolamide 500mg bid po yesterday with - 1L fluid balance. Cr continues to improve despite contrast from CT imaging. Continue diuresis. -Continuous monitoring on telemetry Respiratory - Acute on chronic hypoxic respiratory failurepatient with ILD on 3L nasal cannula at baseline. Peaked on 15L OxiMax. Currently on 6L NC. -CTA chest compromised by mixing artifact within the pulmonary arteries. Initial suspicion was PE. Repeat CTA chest still with artifact findings. cannot r/o PE so will continue with heparin drip. Hesitant to continue repeating CT imaging due to contrast load so would consider treating as a PE in the outpatient setting with 3-6 months of anticoagulation. However, with her continual improvement it is very likely her symptoms stem from acute on chronic cor pulmonale. -bilateral venous Doppler with no evidence of DVT -less likely infectious PJP involvement. Sputum culture PCR pending. -Continue prednisone, nebs as needed -Continuous monitoring pulse ox. Wean oxygen as tolerated. GI - advance diet as tolerated RENAL/LYTES - LUI likely in the setting of dehydration. Creatinine wnl, continues to improve with diuresis. -Monitor routine BMPs and replete electrolytes as indicated -Renally dose meds and avoid nephrotoxins - Strict I/O's ENDO - DM type IIhold oral agents in favor of sliding scale -ICU hyperglycemic protocol -consider discontinuation of home glipizide on discharge. Patient tends to run low at home. Hypothyroidcontinue Synthroid HEME - H&H stable, monitor routine CBC ID - Urinalysis with 4+ bacteria, appears to be uncomplicated. Urine culture +gram neg bacilli. -patient denies dysuria so would consider her to be asymptomatic at this time. Will d/c rocephin. No other indication for abx as lungs appear noninfected. LINES/IV ACCESS - Peripheral IVs DVT ppx- SCDs, heparin drip GI ppx- protonix Thank you for allowing us to participate in the care of this patient. Please refer to my attending physician's documentation for any further recommendations. She is hemodynamically stable for downgrade from the ICU. (2) Interstitial lung disease: (3) Acute and chronic respiratory failure with hypoxia: (4) Diabetes: (5) Pulmonary hypertension: (6) COVID-19 long hauler: (7) Cor pulmonale: Admission and Anticipated Discharge Date Admission Date: August 17, 2022 Supervising Physician Co-Signing Physician Notes Dr. Asencio was the resident-physician during care of patient. I separately evaluated patient for sandoval portions of the history and the exam. I was present during the critical portion of medical decision making, and I discussed the case with the resident. I generally agree with the findings and plan except for any additions/exceptions noted. Patient seen and examined at bedside. No acute distress, no adverse events overnight. She was saturating 92% on 6 L nasal cannula. She says she slept well. Denies any nausea or vomiting No chest pain. No coughing. Has been urinating well while being restarted on Lasix. Constitutional: No acute distress HEENT: EOMI, PERRLA Respiratory system: Decreased air entry bilaterally, no wheeze, no rhonchi, positive crackles appreciated bilaterally CVS: S1-S2 positive, no murmurs or gallops Abdomen: Soft, nontender, nondistended, positive bowel sounds x4 Extremities: +2 pulses bilaterally radialis/ dorsalis pedis, no cyanosis, no edema Neuro: Awake alert oriented x3 Psych: Normal mood and affect G/U: Positive Resendiz --Prophylaxis VTE: Heparin drip GI: Pantoprazole Lines: Peripheral Diet: Low-sodium cardiac Plan: In/out: -1.4 L, urine output 2850 Patient's urine was dirty but it was contaminated. Patient does not have any complaints of dysuria. DC Rocephin Continue with heparin drip given the discrepancy regarding pulmonary emboli. Continue with Lasix 40 mg IV twice daily along with Diamox. I do not see any significant groundglass opacities to think of PJP, I would order PJP sputum culture PCR to be sent. BiPAP/CPAP nightly and as needed shortness of breath Patient hemodynamically stable to be downgrade to telemetry floor Please note the above document was generated using voice recognition software. It may contain grammatical, syntax or spelling errors.Any formal questions or concerns about the content, text or information contained within the body of this dictation should be directly addressed to the provider for clarification. Subjective Patient seen at bedside this morning. Breathing much improved after lasix administration. Now only on 6L NC. Denies chest pain, headache, N/V, abdominal pain, leg cramping, dysuria. Review of Systems Review of Systems: All systems reviewed & are unremarkable except as noted in HPI & below Physical Exam Physical Exam: GENERAL: AOx3. NAD. on 6L NC. HEENT: No pallor, no scleral icterus. Moist mucous membranes. NECK: No JVD, trachea midline. HEART: RRR. No murmur, no gallop. RESPIRATORY SYSTEM: No accessory muscle use. No wheezing. +diffuse bilateral crackles. ABDOMEN: Soft, bowel sounds present, nontender, no distention. NEURO: No focal deficits. Speech is clear. Obeys commands. Moves extremities. EXTREMITIES: No edema or erythema. Rt leg w/ ruptured blister, doesn't look infective. Results & Data Results & Data ([facility]) Vital Signs (Past 12 Hours) Vital Signs Temp Pulse Resp BP Pulse Ox 08/18/22 05:50 73 31 H 96 08/18/22 05:40 75 28 H 95 08/18/22 05:30 73 21 95 08/18/22 05:20 72 28 H 95 08/18/22 05:10 73 27 H 93 08/18/22 05:01 73 31 H 91 08/18/22 05:01 128/88 08/18/22 05:00 79 19 94 08/18/22 04:50 75 21 93 08/18/22 04:40 76 17 93 08/18/22 04:30 72 22 97 08/18/22 04:20 71 20 96 08/18/22 04:10 72 19 96 08/18/22 04:00 72 23 95 08/18/22 04:00 119/101 H 08/18/22 03:50 70 22 95 08/18/22 03:40 75 18 96 08/18/22 03:30 71 24 96 08/18/22 03:20 73 21 97 08/18/22 03:10 70 23 95 08/18/22 03:00 69 19 94 08/18/22 03:00 120/90 08/18/22 02:50 68 21 95 08/18/22 02:40 71 20 95 08/18/22 02:30 68 20 94 08/18/22 02:20 73 23 93 08/18/22 02:10 72 29 H 95 08/18/22 02:01 120/89 08/18/22 02:01 73 25 H 94 08/18/22 02:00 72 20 94 08/18/22 01:50 74 19 94 08/18/22 01:40 73 19 94 08/18/22 01:30 70 24 93 08/18/22 01:20 67 21 94 08/18/22 01:10 72 15 94 08/18/22 01:00 65 28 H 93 08/18/22 01:00 136/111 H 08/18/22 00:50 68 30 H 90 08/18/22 00:40 69 19 95 08/18/22 00:30 67 24 95 08/18/22 00:20 68 24 96 08/18/22 00:10 69 22 97 08/18/22 00:00 69 20 96 08/18/22 00:00 120/90 08/17/22 23:50 69 20 96 08/17/22 23:40 70 21 95 08/17/22 23:30 69 21 96 08/17/22 23:20 70 22 97 08/17/22 23:10 72 20 95 08/17/22 23:00 74 22 95 08/18/22 03:46 36.5 C 08/17/22 23:38 36.6 C 08/17/22 23:30 69 08/17/22 21:40 73 25 H 96 08/17/22 21:30 75 26 H 94 08/17/22 21:20 73 24 93 08/17/22 21:10 74 28 H 93 08/17/22 21:00 77 27 H 91 08/17/22 20:50 84 44 H 94 08/17/22 20:40 78 25 H 93 08/17/22 20:30 76 33 H 94 Laboratory Results 08/18/22 08/18/22 08/18/22 Range/Units 08:00 07:11 05:30 WBC (4.8-10.8) K/ul RBC (3.93-5.22) M/uL Hgb (12.0-16.0) g/dl Hct (34.1-44.9) % MCV (80.0-100.0) fL MCH (25.0-34.0) pg MCHC (32.0-36.0) g/dL RDW Std Deviation (36.4-46.3) fL RDW Coeff of Lulu (11.5-14.5) % Plt Count (130-400) K/uL MPV (9.4-12.3) fL Immature Gran % (Auto) % Neut % (Auto) % Lymph % (Auto) % [place] % (Auto) % Eos % (Auto) % Baso % (Auto) % Neut # (Auto) (1.4-6.5) K/uL Lymph # (Auto) (1.2-3.4) K/uL [place] # (Auto) (0.24-0.82) K/uL Eos # (Auto) (0-0.50) K/uL Baso # (Auto) (0-0.2) K/uL Immature Gran # (Auto) (0.00-0.02) K/uL Absolute Nucleated RBC (0-0) K/uL Nucleated RBC % (auto) % Polychromasia Anisocytosis Echinocytes PT (9.0-12.0) Seconds INR (0.9-1.1) APTT 64.1 H* (21.0-31.0) Seconds PTT Ratio 2.3 Sodium (136-145) mmol/L Potassium (3.5-5.1) mmol/L Chloride (98-107) mmol/L Carbon Dioxide (21-32) mmol/L Anion Gap (3-11) BUN (6-23) mg/dl Creatinine (0.6-1.2) mg/dl Est Cr Clr Drug Dosing ml/min Est GFR ( Amer) ml/min Est GFR (Non-Af Amer) ml/min BUN/Creatinine Ratio (10-20) Glucose (70-99(Fasting)) mg/dl POC Glucose 102 H (70-99) mg/dl Calcium (8.5-10.1) mg/dl Phosphorus (2.5-4.9) mg/dl Magnesium (1.7-2.4) mg/dl Total Bilirubin (0.2-1.0) mg/dl Direct Bilirubin (0-0.2) mg/dl AST (13-39) U/L ALT (7-52) U/L Alkaline Phosphatase (34-104) U/L Troponin I High Sens (0-14) pg/ml Total Protein (6.0-8.3) gm/dl Albumin (3.4-5.0) gm/dl Procalcitonin Pending Stl C. cayetanensis PCR (NotDetected) Stool Rotavirus A PCR (NotDetected) Stl Adenov F 40/41 PCR (NotDetected) Stool Astrovirus (PCR) (NotDetected) Stool Campylobacter PCR (NotDetected) Stl C. diff Tox B Gene (Neg) Stool Cryptosporidium PCR (NotDetected) Stl E.coli Shiga Tox PCR (NotDetected) Stl Enterotoxigenic E PCR (NotDetected) Stool EPEC (PCR) (NotDetected) Stool EAEC (PCR) (NotDetected) Stl E. histolytica PCR (NotDetected) Stool Giardia Lamblia PCR (NotDetected) Stool Salmonella PCR (NotDetected) Stool Sapovirus (PCR) (NotDetected) Stl P. shigelloides PCR (NotDetected) Stl Shigella/EIEC PCR (NotDetected) St Y.enterocolitica PCR (NotDetected) Stool Vibrio (PCR) (NotDetected) Stl Vibrio cholerae PCR (NotDetected) Stl Norovirus GI/GII PCR (NotDetected) Pneumocystis Source Pneumocyst jirovecii PCR Beta-(1,3)-D-Glucan B-(1,3)-D-Glucan Intrp 08/18/22 08/18/22 08/18/22 Range/Units 05:30 05:30 00:42 WBC 9.77 (4.8-10.8) K/ul RBC 5.46 H (3.93-5.22) M/uL Hgb 15.2 (12.0-16.0) g/dl Hct 45.4 H (34.1-44.9) % MCV 83.2 (80.0-100.0) fL MCH 27.8 (25.0-34.0) pg MCHC 33.5 (32.0-36.0) g/dL RDW Std Deviation 60.2 H (36.4-46.3) fL RDW Coeff of Lulu 20.9 H (11.5-14.5) % Plt Count 217 (130-400) K/uL MPV 11.5 (9.4-12.3) fL Immature Gran % (Auto) 0.8 % Neut % (Auto) 77.5 % Lymph % (Auto) 8.3 % [place] % (Auto) 10.2 % Eos % (Auto) 2.4 % Baso % (Auto) 0.8 % Neut # (Auto) 7.57 H (1.4-6.5) K/uL Lymph # (Auto) 0.81 L (1.2-3.4) K/uL [place] # (Auto) 1.00 H (0.24-0.82) K/uL Eos # (Auto) 0.23 (0-0.50) K/uL Baso # (Auto) 0.08 (0-0.2) K/uL Immature Gran # (Auto) 0.08 H (0.00-0.02) K/uL Absolute Nucleated RBC 0.03 H (0-0) K/uL Nucleated RBC % (auto) 0.3 % Polychromasia 1+ Anisocytosis Present Echinocytes 1+ PT (9.0-12.0) Seconds INR (0.9-1.1) APTT 67.0 H* (21.0-31.0) Seconds PTT Ratio 2.4 Sodium 135 L (136-145) mmol/L Potassium 3.8 (3.5-5.1) mmol/L Chloride 97 L (98-107) mmol/L Carbon Dioxide 29 (21-32) mmol/L Anion Gap 9 (3-11) BUN 15 (6-23) mg/dl Creatinine 0.87 D (0.6-1.2) mg/dl Est Cr Clr Drug Dosing 76.0 ml/min Est GFR ( Amer) 86.9 ml/min Est GFR (Non-Af Amer) 75.0 ml/min BUN/Creatinine Ratio 17.2 (10-20) Glucose 88 (70-99(Fasting)) mg/dl POC Glucose (70-99) mg/dl Calcium 9.1 (8.5-10.1) mg/dl Phosphorus 5.2 H (2.5-4.9) mg/dl Magnesium 1.9 (1.7-2.4) mg/dl Total Bilirubin 1.1 H (0.2-1.0) mg/dl Direct Bilirubin 0.3 H (0-0.2) mg/dl AST 15 (13-39) U/L ALT 11 (7-52) U/L Alkaline Phosphatase 74 (34-104) U/L Troponin I High Sens (0-14) pg/ml Total Protein 6.8 (6.0-8.3) gm/dl Albumin 3.6 (3.4-5.0) gm/dl Procalcitonin Stl C. cayetanensis PCR (NotDetected) Stool Rotavirus A PCR (NotDetected) Stl Adenov F 40/41 PCR (NotDetected) Stool Astrovirus (PCR) (NotDetected) Stool Campylobacter PCR (NotDetected) Stl C. diff Tox B Gene (Neg) Stool Cryptosporidium PCR (NotDetected) Stl E.coli Shiga Tox PCR (NotDetected) Stl Enterotoxigenic E PCR (NotDetected) Stool EPEC (PCR) (NotDetected) Stool EAEC (PCR) (NotDetected) Stl E. histolytica PCR (NotDetected) Stool Giardia Lamblia PCR (NotDetected) Stool Salmonella PCR (NotDetected) Stool Sapovirus (PCR) (NotDetected) Stl P. shigelloides PCR (NotDetected) Stl Shigella/EIEC PCR (NotDetected) St Y.enterocolitica PCR (NotDetected) Stool Vibrio (PCR) (NotDetected) Stl Vibrio cholerae PCR (NotDetected) Stl Norovirus GI/GII PCR (NotDetected) Pneumocystis Source Pneumocyst jirovecii PCR Beta-(1,3)-D-Glucan B-(1,3)-D-Glucan Intrp 08/17/22 08/17/22 08/17/22 Range/Units 20:06 17:43 17:13 WBC (4.8-10.8) K/ul RBC (3.93-5.22) M/uL Hgb (12.0-16.0) g/dl Hct (34.1-44.9) % MCV (80.0-100.0) fL MCH (25.0-34.0) pg MCHC (32.0-36.0) g/dL RDW Std Deviation (36.4-46.3) fL RDW Coeff of Lulu (11.5-14.5) % Plt Count (130-400) K/uL MPV (9.4-12.3) fL Immature Gran % (Auto) % Neut % (Auto) % Lymph % (Auto) % [place] % (Auto) % Eos % (Auto) % Baso % (Auto) % Neut # (Auto) (1.4-6.5) K/uL Lymph # (Auto) (1.2-3.4) K/uL [place] # (Auto) (0.24-0.82) K/uL Eos # (Auto) (0-0.50) K/uL Baso # (Auto) (0-0.2) K/uL Immature Gran # (Auto) (0.00-0.02) K/uL Absolute Nucleated RBC (0-0) K/uL Nucleated RBC % (auto) % Polychromasia Anisocytosis Echinocytes PT (9.0-12.0) Seconds INR (0.9-1.1) APTT 69.8 H* (21.0-31.0) Seconds PTT Ratio 2.5 Sodium (136-145) mmol/L Potassium (3.5-5.1) mmol/L Chloride (98-107) mmol/L Carbon Dioxide (21-32) mmol/L Anion Gap (3-11) BUN (6-23) mg/dl Creatinine (0.6-1.2) mg/dl Est Cr Clr Drug Dosing ml/min Est GFR ( Amer) ml/min Est GFR (Non-Af Amer) ml/min BUN/Creatinine Ratio (10-20) Glucose (70-99(Fasting)) mg/dl POC Glucose 97 (70-99) mg/dl Calcium (8.5-10.1) mg/dl Phosphorus (2.5-4.9) mg/dl Magnesium (1.7-2.4) mg/dl Total Bilirubin (0.2-1.0) mg/dl Direct Bilirubin (0-0.2) mg/dl AST (13-39) U/L ALT (7-52) U/L Alkaline Phosphatase (34-104) U/L Troponin I High Sens (0-14) pg/ml Total Protein (6.0-8.3) gm/dl Albumin (3.4-5.0) gm/dl Procalcitonin Stl C. cayetanensis PCR (NotDetected) Stool Rotavirus A PCR (NotDetected) Stl Adenov F 40/41 PCR (NotDetected) Stool Astrovirus (PCR) (NotDetected) Stool Campylobacter PCR (NotDetected) Stl C. diff Tox B Gene (Neg) Stool Cryptosporidium PCR (NotDetected) Stl E.coli Shiga Tox PCR (NotDetected) Stl Enterotoxigenic E PCR (NotDetected) Stool EPEC (PCR) (NotDetected) Stool EAEC (PCR) (NotDetected) Stl E. histolytica PCR (NotDetected) Stool Giardia Lamblia PCR (NotDetected) Stool Salmonella PCR (NotDetected) Stool Sapovirus (PCR) (NotDetected) Stl P. shigelloides PCR (NotDetected) Stl Shigella/EIEC PCR (NotDetected) St Y.enterocolitica PCR (NotDetected) Stool Vibrio (PCR) (NotDetected) Stl Vibrio cholerae PCR (NotDetected) Stl Norovirus GI/GII PCR (NotDetected) Pneumocystis Source Pending Pneumocyst jirovecii PCR Pending Beta-(1,3)-D-Glucan B-(1,3)-D-Glucan Intrp 08/17/22 08/17/22 08/17/22 Range/Units 16:14 13:52 13:52 WBC (4.8-10.8) K/ul RBC (3.93-5.22) M/uL Hgb (12.0-16.0) g/dl Hct (34.1-44.9) % MCV (80.0-100.0) fL MCH (25.0-34.0) pg MCHC (32.0-36.0) g/dL RDW Std Deviation (36.4-46.3) fL RDW Coeff of Lulu (11.5-14.5) % Plt Count (130-400) K/uL MPV (9.4-12.3) fL Immature Gran % (Auto) % Neut % (Auto) % Lymph % (Auto) % [place] % (Auto) % Eos % (Auto) % Baso % (Auto) % Neut # (Auto) (1.4-6.5) K/uL Lymph # (Auto) (1.2-3.4) K/uL [place] # (Auto) (0.24-0.82) K/uL Eos # (Auto) (0-0.50) K/uL Baso # (Auto) (0-0.2) K/uL Immature Gran # (Auto) (0.00-0.02) K/uL Absolute Nucleated RBC (0-0) K/uL Nucleated RBC % (auto) % Polychromasia Anisocytosis Echinocytes PT (9.0-12.0) Seconds INR (0.9-1.1) APTT (21.0-31.0) Seconds PTT Ratio Sodium (136-145) mmol/L Potassium (3.5-5.1) mmol/L Chloride (98-107) mmol/L Carbon Dioxide (21-32) mmol/L Anion Gap (3-11) BUN (6-23) mg/dl Creatinine (0.6-1.2) mg/dl Est Cr Clr Drug Dosing ml/min Est GFR ( Amer) ml/min Est GFR (Non-Af Amer) ml/min BUN/Creatinine Ratio (10-20) Glucose (70-99(Fasting)) mg/dl POC Glucose 118 H (70-99) mg/dl Calcium (8.5-10.1) mg/dl Phosphorus (2.5-4.9) mg/dl Magnesium (1.7-2.4) mg/dl Total Bilirubin (0.2-1.0) mg/dl Direct Bilirubin (0-0.2) mg/dl AST (13-39) U/L ALT (7-52) U/L Alkaline Phosphatase (34-104) U/L Troponin I High Sens 711.5 H* D (0-14) pg/ml Total Protein (6.0-8.3) gm/dl Albumin (3.4-5.0) gm/dl Procalcitonin Stl C. cayetanensis PCR (NotDetected) Stool Rotavirus A PCR (NotDetected) Stl Adenov F 40/41 PCR (NotDetected) Stool Astrovirus (PCR) (NotDetected) Stool Campylobacter PCR (NotDetected) Stl C. diff Tox B Gene (Neg) Stool Cryptosporidium PCR (NotDetected) Stl E.coli Shiga Tox PCR (NotDetected) Stl Enterotoxigenic E PCR (NotDetected) Stool EPEC (PCR) (NotDetected) Stool EAEC (PCR) (NotDetected) Stl E. histolytica PCR (NotDetected) Stool Giardia Lamblia PCR (NotDetected) Stool Salmonella PCR (NotDetected) Stool Sapovirus (PCR) (NotDetected) Stl P. shigelloides PCR (NotDetected) Stl Shigella/EIEC PCR (NotDetected) St Y.enterocolitica PCR (NotDetected) Stool Vibrio (PCR) (NotDetected) Stl Vibrio cholerae PCR (NotDetected) Stl Norovirus GI/GII PCR (NotDetected) Pneumocystis Source Pneumocyst jirovecii PCR Beta-(1,3)-D-Glucan Pending B-(1,3)-D-Glucan Intrp Pending 08/17/22 08/17/22 08/17/22 Range/Units 11:18 09:56 08:01 WBC (4.8-10.8) K/ul RBC (3.93-5.22) M/uL Hgb (12.0-16.0) g/dl Hct (34.1-44.9) % MCV (80.0-100.0) fL MCH (25.0-34.0) pg MCHC (32.0-36.0) g/dL RDW Std Deviation (36.4-46.3) fL RDW Coeff of Lulu (11.5-14.5) % Plt Count (130-400) K/uL MPV (9.4-12.3) fL Immature Gran % (Auto) % Neut % (Auto) % Lymph % (Auto) % [place] % (Auto) % Eos % (Auto) % Baso % (Auto) % Neut # (Auto) (1.4-6.5) K/uL Lymph # (Auto) (1.2-3.4) K/uL [place] # (Auto) (0.24-0.82) K/uL Eos # (Auto) (0-0.50) K/uL Baso # (Auto) (0-0.2) K/uL Immature Gran # (Auto) (0.00-0.02) K/uL Absolute Nucleated RBC (0-0) K/uL Nucleated RBC % (auto) % Polychromasia Anisocytosis Echinocytes PT 12.8 H (9.0-12.0) Seconds INR 1.2 H (0.9-1.1) APTT 81.1 H* (21.0-31.0) Seconds PTT Ratio 2.9 Sodium (136-145) mmol/L Potassium (3.5-5.1) mmol/L Chloride (98-107) mmol/L Carbon Dioxide (21-32) mmol/L Anion Gap (3-11) BUN (6-23) mg/dl Creatinine (0.6-1.2) mg/dl Est Cr Clr Drug Dosing ml/min Est GFR ( Amer) ml/min Est GFR (Non-Af Amer) ml/min BUN/Creatinine Ratio (10-20) Glucose (70-99(Fasting)) mg/dl POC Glucose 153 H (70-99) mg/dl Calcium (8.5-10.1) mg/dl Phosphorus (2.5-4.9) mg/dl Magnesium (1.7-2.4) mg/dl Total Bilirubin (0.2-1.0) mg/dl Direct Bilirubin (0-0.2) mg/dl AST (13-39) U/L ALT (7-52) U/L Alkaline Phosphatase (34-104) U/L Troponin I High Sens 993.9 H* D (0-14) pg/ml Total Protein (6.0-8.3) gm/dl Albumin (3.4-5.0) gm/dl Procalcitonin Stl C. cayetanensis PCR (NotDetected) Stool Rotavirus A PCR (NotDetected) Stl Adenov F 40/41 PCR (NotDetected) Stool Astrovirus (PCR) (NotDetected) Stool Campylobacter PCR (NotDetected) Stl C. diff Tox B Gene (Neg) Stool Cryptosporidium PCR (NotDetected) Stl E.coli Shiga Tox PCR (NotDetected) Stl Enterotoxigenic E PCR (NotDetected) Stool EPEC (PCR) (NotDetected) Stool EAEC (PCR) (NotDetected) Stl E. histolytica PCR (NotDetected) Stool Giardia Lamblia PCR (NotDetected) Stool Salmonella PCR (NotDetected) Stool Sapovirus (PCR) (NotDetected) Stl P. shigelloides PCR (NotDetected) Stl Shigella/EIEC PCR (NotDetected) St Y.enterocolitica PCR (NotDetected) Stool Vibrio (PCR) (NotDetected) Stl Vibrio cholerae PCR (NotDetected) Stl Norovirus GI/GII PCR (NotDetected) Pneumocystis Source Pneumocyst jirovecii PCR Beta-(1,3)-D-Glucan B-(1,3)-D-Glucan Intrp 08/17/22 08/17/22 Range/Units 07:00 07:00 WBC (4.8-10.8) K/ul RBC (3.93-5.22) M/uL Hgb (12.0-16.0) g/dl Hct (34.1-44.9) % MCV (80.0-100.0) fL MCH (25.0-34.0) pg MCHC (32.0-36.0) g/dL RDW Std Deviation (36.4-46.3) fL RDW Coeff of Lulu (11.5-14.5) % Plt Count (130-400) K/uL MPV (9.4-12.3) fL Immature Gran % (Auto) % Neut % (Auto) % Lymph % (Auto) % [place] % (Auto) % Eos % (Auto) % Baso % (Auto) % Neut # (Auto) (1.4-6.5) K/uL Lymph # (Auto) (1.2-3.4) K/uL [place] # (Auto) (0.24-0.82) K/uL Eos # (Auto) (0-0.50) K/uL Baso # (Auto) (0-0.2) K/uL Immature Gran # (Auto) (0.00-0.02) K/uL Absolute Nucleated RBC (0-0) K/uL Nucleated RBC % (auto) % Polychromasia Anisocytosis Echinocytes PT (9.0-12.0) Seconds INR (0.9-1.1) APTT (21.0-31.0) Seconds PTT Ratio Sodium (136-145) mmol/L Potassium (3.5-5.1) mmol/L Chloride (98-107) mmol/L Carbon Dioxide (21-32) mmol/L Anion Gap (3-11) BUN (6-23) mg/dl Creatinine (0.6-1.2) mg/dl Est Cr Clr Drug Dosing ml/min Est GFR ( Amer) ml/min Est GFR (Non-Af Amer) ml/min BUN/Creatinine Ratio (10-20) Glucose (70-99(Fasting)) mg/dl POC Glucose (70-99) mg/dl Calcium (8.5-10.1) mg/dl Phosphorus (2.5-4.9) mg/dl Magnesium (1.7-2.4) mg/dl Total Bilirubin (0.2-1.0) mg/dl Direct Bilirubin (0-0.2) mg/dl AST (13-39) U/L ALT (7-52) U/L Alkaline Phosphatase (34-104) U/L Troponin I High Sens (0-14) pg/ml Total Protein (6.0-8.3) gm/dl Albumin (3.4-5.0) gm/dl Procalcitonin Stl C. cayetanensis PCR Not Detected (NotDetected) Stool Rotavirus A PCR Not Detected (NotDetected) Stl Adenov F 40/41 PCR Not Detected (NotDetected) Stool Astrovirus (PCR) Not Detected (NotDetected) Stool Campylobacter PCR Not Detected (NotDetected) Stl C. diff Tox B Gene Negative Cdiff Gene (Neg) Stool Cryptosporidium PCR Not Detected (NotDetected) Stl E.coli Shiga Tox PCR Not Detected (NotDetected) Stl Enterotoxigenic E PCR Not Detected (NotDetected) Stool EPEC (PCR) Not Detected (NotDetected) Stool EAEC (PCR) Not Detected (NotDetected) Stl E. histolytica PCR Not Detected (NotDetected) Stool Giardia Lamblia PCR Not Detected (NotDetected) Stool Salmonella PCR Not Detected (NotDetected) Stool Sapovirus (PCR) Not Detected (NotDetected) Stl P. shigelloides PCR Not Detected (NotDetected) Stl Shigella/EIEC PCR Not Detected (NotDetected) St Y.enterocolitica PCR Not Detected (NotDetected) Stool Vibrio (PCR) Not Detected (NotDetected) Stl Vibrio cholerae PCR Not Detected (NotDetected) Stl Norovirus GI/GII PCR Not Detected (NotDetected) Pneumocystis Source Pneumocyst jirovecii PCR Beta-(1,3)-D-Glucan B-(1,3)-D-Glucan Intrp Resident Activity Tracking Resident Involvement: Resident Care Provided Care Provided: Adult Hospital Medicine (1) Pulmonary embolism Acute cor pulmonale presence: unspecified Chronicity: acute Pulmonary embolism type: other Qualified Code(s): I26.99 - Other pulmonary embolism without acute cor pulmonale
[2022-08-18] MEDS: MAGNESIUM SULFATE / D5W 1 GM/100 ML BAG IV SCH ×2 (09:24→11:19)
[2022-08-18] MEDS: CETIRIZINE HCL 10 MG TABLET PO SCH (09:25)
[2022-08-18] MEDS: FLUTICASONE PROPIONATE NA SPR 16 GM BTL SCH ×2 (09:26→19:41)
[2022-08-18] MEDS: CITALOPRAM 20 MG TAB PO SCH (09:28)
[2022-08-18] MEDS: LANTUS PER UNIT CHARGE SQ SCH (09:28)
[2022-08-18] MEDS: ADVANCED PROBIOTIC 1250 MG CAPSULE PO SCH (09:28)
[2022-08-18] MEDS: acetaZOLAMIDE 250 MG TAB PO SCH ×2 (09:28→19:40)
[2022-08-18] MEDS: CYANOCOBALAMIN (B-12) 500 MCG TABLET PO SCH (09:29)
[2022-08-18] MEDS: PANTOprazole 40 MG TAB PO SCH (09:30)
[2022-08-18] MEDS: MAGNESIUM OXIDE 400 MG TAB PO SCH ×2 (09:30→19:48)
[2022-08-18] MEDS: predniSONE 10 MG TABLET PO SCH (09:31)
[2022-08-18] MEDS: FUROSEMIDE 40 MG/4 ML VIAL IV SCH ×2 (09:33→19:44)
--- NOTE | 2022-08-18 15:29 | Billing Data ---
Date of Service August 18, 2022 Coding Level of Care Code 96518 SUB INP/OBS CARE MIN
--- NOTE | 2022-08-18 16:07 | Hospitalist Progress Note ---
Date of Service August 18, 2022 Assessment & Plan (1) Acute and chronic respiratory failure: Plan Acute on chronic respiratory failure Questionable Pulmonary embolism CTA chest showedApparent filling defects within right-sided pulmonary arteries likely represent mixing artifact. Doppler of LE extremities showed no evidence of deep venous thrombus within the bilateral lower extremities. Case discussed with critical care that recommended to continue IV heparin drip given the discrepancy regarding pulmonary emboli. ECHO showed right ventricle is severely dilated. RV systolic function is severely reduced Mild concentric LVH with EF 65 to 70 % Continue with Lasix 40 mg IV twice daily along with Diamox. Abx was discontinued by the critical care since no evidence of PNA on CT as per Heat Treat Puller Heat Treat Puller recommended to repeat the CTA chest in the next few days (please discuss with radiology because they are planning to perform the CT another way ) Ok from Heat Treat Puller to transfer to PCU Continue oxygen supplement 5L NC ( baseline 3L NC) Hyponatremia Na 130 on admission Na 135 today Stable Abnormal UA UA positive for Nitrite, WBC and bacteria Continue IV Ceftriaxone Will follow urine cx Acute Kidney Injury Creatinine of 1.45 on admission, baseline around 1.0 Creatinine 0.87 today Continue monitor BMP while on IV lasix Elevated troponin Possible demand ischemia due to hypoxia and PE Troponin peaked to 993.9, now trending down ECHO showed right ventricle is severely dilated. RV systolic function is severely reduced. Flattened septum is consistent with RV pressure/Volume overload. Mild concentric LVH with EF 65 to 70 % Continue metoprolol and statin CODE status Full code Full Code DVT px on IV Heparin Drip Admission and Anticipated Discharge Date Admission Date: August 17, 2022 Subjective Pt was seen and examined for follow up with SOB Lying in bed with no acute distress Pt said that she feels alot better today She continues to require 5L NC oxygen. She said that she used 3L NC oxygen at baseline Denies any chest pain, palpitation and fever Review of Systems Review of Systems: All systems reviewed & are unremarkable except as noted in Subjective Physical Exam Physical Exam: GENERAL: AOx3. NAD. on 15L via OM HEENT: No pallor, no scleral icterus. Moist mucous membranes. NECK: No JVD, trachea midline. HEART: RRR. No murmur, no gallop. RESPIRATORY SYSTEM: No accessory muscle use. +coarse BS ABDOMEN: Soft, bowel sounds present, nontender, no distention. NEURO: No focal deficits. Speech is clear. followed commands. Moves extremities. EXTREMITIES: No edema or erythema. Results & Data Results & Data ([facility]) Vital Signs (Past 12 Hours) Vital Signs Temp Pulse Resp BP Pulse Ox O2 Del Method O2 Flow Rate 08/18/22 15:00 36.9 C 08/18/22 11:00 37.0 C 08/18/22 08:00 Nasal Cannula 08/18/22 08:00 73 08/18/22 08:00 Nasal Cannula 6 08/18/22 08:00 37 C 08/18/22 09:00 100 H 16 93 08/18/22 09:00 107/88 08/18/22 08:01 94 H 21 93 08/18/22 08:01 121/80 08/18/22 08:00 94 H 24 92 08/18/22 07:00 72 22 96 08/18/22 06:01 111/82 08/18/22 06:01 74 17 96 08/18/22 06:00 71 17 96 08/18/22 05:50 73 31 H 96 08/18/22 05:40 75 28 H 95 08/18/22 05:30 73 21 95 08/18/22 05:20 72 28 H 95 08/18/22 05:10 73 27 H 93 08/18/22 05:01 73 31 H 91 08/18/22 05:01 128/88 08/18/22 05:00 79 19 94 08/18/22 04:50 75 21 93 08/18/22 04:40 76 17 93 08/18/22 04:30 72 22 97 08/18/22 04:20 71 20 96 08/18/22 04:10 72 19 96
[2022-08-18] MEDS ORDERED: PHARMACY GLYCEMIC MGMT CONSULT PRN (17:09)
[2022-08-18] MEDS: SENNA 8.6 MG TAB PO SCH (19:47)
[2022-08-18] MEDS ORDERED: POTASSIUM CHLORIDE CRTAB 20 MEQ TABCR PO ONE (20:00)
[2022-08-19 05:11] LABS: Basophils # (auto) 0.07 K/uL (0-0.2); Basophils % (auto) 0.8 %; Eosinophils # (auto) 0.22 K/uL (0-0.50); Eosinophils % (auto) 2.7 %; Hematocrit (blood only) 46.2 % (34.1-44.9); Hemoglobin 15.3 g/dl (12.0-16.0); Immature Granulocytes # (auto) 0.06 K/uL (0.00-0.02); Immature Granulocytes % (auto) 0.7 %; Lymphocytes # (auto) 0.82 K/uL (1.2-3.4); Lymphocytes % (auto) 9.9 %; Mean Corpuscular Hemoglobin 28.1 pg (25.0-34.0); Mean Corpuscular Hgb Conc 33.1 g/dL (32.0-36.0); Mean Corpuscular Volume 84.8 fL (80.0-100.0); Mean Platelet Volume 9.9 fL (9.4-12.3); Monocytes # (auto) 0.89 K/uL (0.24-0.82); Monocytes % (auto) 10.8 %; Neutrophils % (auto) 75.1 %; Nucleated RBC # (auto) 0.03 K/uL (0-0); Nucleated RBC % (auto) 0.4 %; Platelet Count 223 K/uL (130-400); RDW Coefficient of Variation 20.7 % (11.5-14.5); Red Blood Count 5.45 M/uL (3.93-5.22); White Blood Count 8.26 K/ul (4.8-10.8)
[2022-08-19 05:40] LABS: Albumin Level 3.5 gm/dl (3.4-5.0); BUN Creatinine Ratio 14.8 (10-20); Bilirubin Direct 0.3 mg/dl (0-0.2); Bilirubin,Total 1.6 mg/dl (0.2-1.0); Calcium 9.4 mg/dl (8.5-10.1); Creatinine Clr Calc Pharmacy 80.9 ml/min; Est GFR (African American) 94.8 ml/min; Est GFR (Non-African American) 81.8 ml/min; Magnesium 1.9 mg/dl (1.7-2.4); Phosphorus 3.9 mg/dl (2.5-4.9); Potassium 4.2 mmol/L (3.5-5.1); Total Protein 6.8 gm/dl (6.0-8.3)
[2022-08-19 05:55] LABS: Partial Thromboplastin Ratio 2.7
[2022-08-19 05:57] LABS: Acanthocytes 1+; Anisocytosis Present; Polychromasia 1+
[2022-08-19] MEDS: LEVOTHYROXINE SODIUM 88 MCG TABLET PO SCH (06:10)
[2022-08-19] MEDS: MAGNESIUM OXIDE 400 MG TAB PO SCH ×2 (08:21→20:02)
[2022-08-19] MEDS: CETIRIZINE HCL 10 MG TABLET PO SCH (08:21)
[2022-08-19] MEDS: CYANOCOBALAMIN (B-12) 500 MCG TABLET PO SCH (08:21)
[2022-08-19] MEDS: PANTOprazole 40 MG TAB PO SCH (08:21)
[2022-08-19] MEDS: CITALOPRAM 20 MG TAB PO SCH (08:22)
[2022-08-19] MEDS: predniSONE 10 MG TABLET PO SCH (08:22)
[2022-08-19] MEDS: acetaZOLAMIDE 250 MG TAB PO SCH ×2 (08:22→16:31)
[2022-08-19] MEDS: ADVANCED PROBIOTIC 1250 MG CAPSULE PO SCH (08:23)
[2022-08-19] MEDS: FUROSEMIDE 40 MG/4 ML VIAL IV SCH ×2 (08:24→20:01)
[2022-08-19] MEDS: INSULIN ASPART PER UNIT SC SCH ×4 (08:24→20:41)
[2022-08-19] MEDS: LANTUS PER UNIT CHARGE SQ SCH (08:28)
[2022-08-19] MEDS: FLUTICASONE PROPIONATE NA SPR 16 GM BTL SCH ×2 (08:32→20:05)
[2022-08-19] MEDS: HEPARIN SODIUM/DEXTROSE 25,000 UNITS/500 ML BAG IV SCH ×2 (10:49→22:38)
[2022-08-19] MEDS: MAGNESIUM SULFATE / D5W 1 GM/100 ML BAG IV SCH ×2 (10:49→12:11)
--- NOTE | 2022-08-19 11:10 | Pharmacy Report ---
Pharmacy Glycemic Short Note 2 - Date of Service August 19, 2022 - Glycemic Short BSG Results (Last 24 hours): 08/18/22 08/18/22 08/18/22 11:23 16:32 22:04 Glucose POC Glucose 197 H 282 H 112 H 08/19/22 08/19/22 04:56 07:14 Glucose 116 H POC Glucose 114 H OUTPATIENT ANTIDIABETIC REGIMEN: * Lantus 10 units SQ daily * Glipizide 10mg PO daily * Metformin 2gm PO daily HbA1C: 12.3% (07/24/22) ASSESSMENT: * Pt is a 57 YOF admitted with acute on chronic respiratory failure- questionable PE. History of DM2 on insulin and PO medications at home. Pharmacy consulted to assist with glycemic management. * BSGs [phone]/dL the last 24h. Fasting is within goal range at 114 (102mg/dL yesterday). Patient received 8 units of basal and 9 units of bolus insulin yesterday. * Tolerating a diet, on prednisone 10mg PO daily, and a heparin drip (in D5W). * Plan to continue Lantus 8 units daily given well controlled fasting BSGs. Novolog tightened to 45/15 at dinner/HS and 30/10 with breakfast and lunch given higher BSGs earlier in the day followed by significant drop at night. PLAN FOR INPATIENT GLYCEMIC CONTROL: * Hold outpatient oral diabetes medications * Basal insulin * Lantus 8 units SQ daily * Bolus insulin * NovoLog per scale ACHS or Q6hrs while NPO * Goal Range: Low 140 mg/dL - High 180 mg/dL * Correction Factor: 45 mg/dL/unit (verna/HS), 30mg/dL/unit (AM/lunch) * Nutritional / Prandial insulin per carb ratio of 1 unit per 15 grams CHO consumed (dinner/HS), 10gm CHO (breakfast, lunch)
--- NOTE | 2022-08-19 12:34 | Pulmonology Progress Note ---
Date of Service August 19, 2022 Assessment & Plan (1) Pulmonary embolism: Acute cor pulmonale presence: unspecified Chronicity: acute Pulmonary embolism type: other Qualified Code(s): I26.99 - Other pulmonary embolism without acute cor pulmonale (2) Interstitial lung disease: (3) Acute and chronic respiratory failure with hypoxia: (4) Pulmonary hypertension: (5) COVID-19 long hauler: (6) Cor pulmonale: Plan Reason : 57-year-old female past medical history ILD, chronic hypoxia on 3L nasal cannula presents to the ICU with acute on chronic hypoxia respiratory failure and suspected extensive pulmonary embolism. -- Acute hypoxic respiratory failure Etiology is multifactorial I think cor pulmonale is playing a major part here. Patient did have 2 CTA chest done while in the hospital and both unfortunately were equivocal diagnosing pulmonary embolism due to mixing artifact 2D echo done during this hospitalization does not show any significant change in the right-sided pressures compared to before. She does have PASP of 76 mmHg BNP 3500 on presentation The possibility of patient having infectious etiology is low as I do not see any parenchymal disease on the CT chest Patient is on 10 mg of prednisone, possibility of PJP is very low. --Severe pulmonary hypertension/cor pulmonale Continue with diuretics --Obesity With probable DEVON/OHS Would benefit from BiPAP/CPAP nightly and as needed shortness of breath Plan: In/out: -1.2 L, urine output 3050 Increase Lasix to 60 mg every 12 hours Increase Diamox to 1000 mg twice daily which will be her home dose Will continue with heparin drip for the time being. Can consider doing another CTA with delayed contrast to see if we can decrease the mixing artifact. Would recommend to speak with radiology prior to ordering it Case was discussed with Dr. Bach Please note the above document was generated using voice recognition software. It may contain grammatical, syntax or spelling errors.Any formal questions or concerns about the content, text or information contained within the body of this dictation should be directly addressed to the provider for clarification. Admission and Anticipated Discharge Date Admission Date: August 17, 2022 Subjective Patient seen and examined at bedside. No acute distress, no adverse events overnight. Patient was saturating 92-93% on 5 L nasal cannula. I was able to go down to 4 L. Overall she says she is feeling better. Denies any chest pain, no headache, no nausea, no vomiting. Not coughing up anything. Fair appetite. Has been urinating well Review of Systems Review of Systems: All systems reviewed & are unremarkable except as noted in Subjective Physical Exam Physical Exam: Constitutional: No acute distress HEENT: EOMI, PERRLA Respiratory system: Decreased air entry bilaterally, no wheeze, no rhonchi, positive crackles appreciated bilaterally, especially anteriorly CVS: S1-S2 positive, no murmurs or gallops, accentuated P2 Abdomen: Soft, nontender, nondistended, positive bowel sounds x4 Extremities: +2 pulses bilaterally radialis/ dorsalis pedis, no cyanosis, +1 pitting edema bilateral lower extremity Neuro: Awake alert oriented x3 Psych: Normal mood and affect G/U: Positive Resendiz Skin: no rashes, warm and dry Lymphatic: no cervical or axillary lymphadenopathy Results & Data Results & Data ([facility]) Vital Signs (Past 12 Hours) Vital Signs Temp Pulse Pulse Resp BP BP Pulse Ox 08/19/22 11:26 36.7 C 103 H 20 104/79 95 08/19/22 11:23 08/19/22 09:00 102 H 35 H 93 08/19/22 08:00 110 H 31 H 96 08/19/22 07:55 115/87 08/19/22 07:55 84 20 97 08/19/22 07:00 90 20 96 08/19/22 08:00 08/19/22 08:05 36.6 C 93 H 18 115/87 97 08/19/22 03:05 36.6 C 83 25 H 126/90 96 O2 Del Method O2 Flow Rate 08/19/22 11:26 Nasal Cannula 5.0 08/19/22 11:23 Nasal Cannula 3 08/19/22 09:00 08/19/22 08:00 08/19/22 07:55 08/19/22 07:55 08/19/22 07:00 08/19/22 08:00 Nasal Cannula 5 08/19/22 08:05 Nasal Cannula 5.0 08/19/22 03:05 Nasal Cannula 5.0 Laboratory Results 08/19/22 04:56 08/19/22 04:56 PG Care Time/CCT Total # of Minutes Spent Total Time Spent with Patient: Total time spent is greater than 50% in coordination of care (as documented) at patient's floor/unit and/or counseling patient: Coding Level of Care Code 56723 SUB INP/OBS CARE 350MIN Diagnoses Pulmonary embolism I26.99 Acute cor pulmonale presence: unspecified Chronicity: acute Pulmonary embolism type: other Interstitial lung disease J84.9 Acute and chronic respiratory failure with hypoxia J96.21 Pulmonary hypertension I27.20 COVID-19 long hauler U09.9 Cor pulmonale I27.81
[2022-08-19 13:50] LABS: Partial Thromboplastin Ratio 1.9
[2022-08-19 13:55] LABS: Partial Thromboplastin Time 52.3 Seconds (21.0-31.0)
--- NOTE | 2022-08-19 15:38 | Hospitalist Progress Note ---
Date of Service August 19, 2022 Assessment & Plan (1) Acute and chronic respiratory failure: Plan Acute on chronic respiratory failure complicated by -Interstitial lung disease. -Pulmonary hypertension/cor pulmonale -Questionable Pulmonary embolism CTA chest showedApparent filling defects within right-sided pulmonary arteries likely represent mixing artifact. Doppler of LE extremities showed no evidence of deep venous thrombus within the bilateral lower extremities. Case discussed with critical care that recommended to continue IV heparin drip given the discrepancy regarding pulmonary emboli. ECHO showed right ventricle is severely dilated. RV systolic function is severely reduced Mild concentric LVH with EF 65 to 70 % Continue with Lasix 40 mg IV twice daily along with Diamox. Abx was discontinued by the critical care since no evidence of PNA on CT as per Automobile Relocation Engineer Automobile Relocation Engineer recommended to repeat the CTA chest in the next few days (please discuss with radiologist about the repeat CT to get a better picture to evaluate pulmonary embolism) We will continue current management and the patient is showing improvement Saturating on 5 L of oxygen and at baseline is 3 L/min Plan to repeat CTA on Monday with cautious amount of IV fluid administration during and after the procedure to avoid nephrotoxicity Hyponatremia Na 130 on admission Na 135 today Sodium level is corrected UTI Abnormal UA with E. coli infection UA positive for Nitrite, WBC and bacteria Continue IV Ceftriaxone Will follow urine cx Acute Kidney Injury Creatinine of 1.45 on admission, baseline around 1.0 Creatinine 0.87 today Continue monitor BMP while on IV lasix Creatinine remains normal and will continue to follow Elevated troponin Possible demand ischemia due to hypoxia and PE Troponin peaked to 993.9, now trending down ECHO showed right ventricle is severely dilated. RV systolic function is severely reduced. Flattened septum is consistent with RV pressure/Volume overload. Mild concentric LVH with EF 65 to 70 % Continue metoprolol and statin CODE status Full code Full Code DVT px on IV Heparin Drip Admission and Anticipated Discharge Date Admission Date: August 17, 2022 Subjective 08/19/2022 The patient was seen and examined in ICU She has been feeling much better but still has reasonable shortness of breath and requiring 5 L of oxygen via nasal cannula to maintain saturation Denies any chest pain and/or palpitation No fever and no chills and no nausea and or vomiting Review of Systems Review of Systems: All systems reviewed and are unremarkable except as noted below Respiratory: Shortness of breath at rest Physical Exam Physical Exam: Lying in bed with minimal distress Constitutional: well developed, well nourished, + ill appearing and + obese Eyes: PERRL, conjunctivae normal, anicteric sclerae ENMT: external ear and nose normal, oropharynx normal Neck: trachea midline, no thyromegaly Respiratory: + respiratory distress and + labored breathing Auscultation: + diminished lung sounds and + crackles (Bilateral coarse crackles) Cardiovascular: Rate/Rhythm: regular rate, regular rhythm and + tachycardic Heart Sounds: normal S1 and normal S2; no murmur Extremities: + edema (Trace edema bilateral) Gastrointestinal (Abdomen): Inspection/Auscultation: normal bowel sounds; abdomen not distended Percussion/Palpation: abdomen soft; abdomen nontender Musculoskeletal: No acute arthritis in any joint Neurologic: normal touch/pain/proprioception and moves all extremities; no focal motor deficits Psychiatric: A+Ox3, euthymic affect Lymphatic: no cervical or axillary lymphadenopathy Results & Data Results & Data ([facility]) Vital Signs (Past 12 Hours) Vital Signs Temp Pulse Pulse Resp BP BP Pulse Ox 08/19/22 15:00 36.6 C 117 H 14 104/77 92 08/19/22 11:26 36.7 C 103 H 20 104/79 95 08/19/22 11:23 08/19/22 09:00 102 H 35 H 93 08/19/22 08:00 110 H 31 H 96 08/19/22 07:55 115/87 08/19/22 07:55 84 20 97 08/19/22 07:00 90 20 96 08/19/22 08:00 08/19/22 08:05 36.6 C 93 H 18 115/87 97 O2 Del Method O2 Flow Rate 08/19/22 15:00 Nasal Cannula 5 08/19/22 11:26 Nasal Cannula 5.0 08/19/22 11:23 Nasal Cannula 5 08/19/22 09:00 08/19/22 08:00 08/19/22 07:55 08/19/22 07:55 08/19/22 07:00 08/19/22 08:00 Nasal Cannula 5 08/19/22 08:05 Nasal Cannula 5.0 Laboratory Results Short CBC 08/19/22 Range/Units 04:56 WBC 8.26 (4.8-10.8) K/ul Hgb 15.3 (12.0-16.0) g/dl Hct 46.2 H (34.1-44.9) % Plt Count 223 (130-400) K/uL BMP 08/19/22 04:56 Sodium 136 Potassium 4.2 Chloride 98 Carbon Dioxide 31 BUN 12 Creatinine 0.81 Glucose 116 H Calcium 9.4 Liver Function 08/19/22 Range/Units 04:56 Total Bilirubin 1.6 H (0.2-1.0) mg/dl Direct Bilirubin 0.3 H (0-0.2) mg/dl AST 15 (13-39) U/L ALT 12 (7-52) U/L Alkaline Phosphatase 78 (34-104) U/L Albumin 3.5 (3.4-5.0) gm/dl Medications Administered Current Inpatient Medications Acetazolamide (Acetazolamide 250 Mg Tab) 1,[address] [facility] Stop: 09/18/22 16:59 Al Hydrox/Mg Hydrox/Simethicone (Aluminum/Magnesium/Simeth (Maalox Max) 30 Ml Udc) 15 ml PO Q4H PRN PRN Reason: Dyspepsia Stop: 09/16/22 02:07 Benzonatate (Benzonatate 100 Mg Capsule) 100 mg PO TID PRN PRN Reason: Cough Stop: 09/16/22 04:04 Cetirizine HCl (Cetirizine Hcl 10 Mg Tablet) [address] [facility] Stop: 09/17/22 08:59 Last Admin: 08/19/22 08:21 Dose: 10 mg Citalopram Hydrobromide (Citalopram 20 Mg Tab) 10 mg PO QAM RAEANN Stop: 09/16/22 08:59 Last Admin: 08/19/22 08:22 Dose: 10 mg Cyanocobalamin (Cyanocobalamin (B-12) 500 Mcg Tablet) 1,000 mcg PO DAILY RAEANN Stop: 09/16/22 08:59 Last Admin: 08/19/22 08:21 Dose: 1,000 mcg Dextrose (Dextrose 50% 50 Ml Syringe) 25 - 50 ml IV UD PRN; Protocol PRN Reason: Hypoglycemia Protocol Stop: 09/16/22 04:08 Last Admin: 08/17/22 07:45 Dose: 25 ml Fluticasone Propionate (Fluticasone Propionate Na Spr 16 Gm Btl) 2 sprays NA BID RAEANN Stop: 09/17/22 08:59 Last Admin: 08/19/22 08:32 Dose: Not Given Furosemide (Furosemide 40 Mg/4 Ml Vial) 60 mg IV Q12 RAEANN Stop: 09/18/22 20:59 Glucagon (Glucagon For Inj 1 Mg Vial) 1 mg SQ UD PRN; Protocol PRN Reason: Hypoglycemia Protocol Stop: 09/16/22 04:08 Glucose (Glucose 40% Gel 15 Gm Tube) 15 - 30 gm PO UD PRN; Protocol PRN Reason: Hypoglycemia Protocol Stop: 09/16/22 04:08 Glucose (Glucose 10 Tab/Tube) 4 - 8 tab PO UD PRN; Protocol PRN Reason: Hypoglycemia Treatment Stop: 09/16/22 04:08 Guaifenesin/Codeine Phosphate (Guaifenesin/Codeine 200mg/20mg 10ml Udc) 10 ml PO Q6H PRN PRN Reason: Cough Stop: 09/16/22 04:04 Heparin Sodium/Dextrose (Heparin Sodium/Dextrose) 25,000 units in 500 mls @ 20 mls/hr IV .Q24H [facility]; Protocol Stop: 09/16/22 02:59 Last Admin: 08/19/22 10:49 Dose: Not Given Insulin Aspart (Insulin Aspart Per Unit) 0 units SC BID@1630,2100 [facility] Stop: 09/16/22 07:29 Insulin Aspart (Insulin Aspart Per Unit) 0 units SC BID@0730,1130 [facility] Stop: 09/18/22 11:29 Last Admin: 08/19/22 11:34 Dose: 5 units Insulin Glargine (Lantus Per Unit Charge) [address] [facility] Stop: 09/16/22 12:59 Last Admin: 08/19/22 08:28 Dose: 8 units Lactobacillus Acidophilus (Advanced Probiotic 1250 Mg Capsule) [address] [facility] Stop: 09/16/22 08:59 Last Admin: 08/19/22 08:23 Dose: 2 cap Levalbuterol HCl (Levalbuterol Hcl 0.63 Mg/3 Ml Neb) 0.63 mg INH Q4H PRN PRN Reason: Dyspnea Stop: 09/16/22 02:07 Levothyroxine Sodium (Levothyroxine Sodium 88 Mcg Tablet) [address] [facility] Stop: 09/16/22 06:29 Last Admin: 08/19/22 06:10 Dose: 88 mcg Magnesium Oxide (Magnesium Oxide 400 Mg Tab) [address] [facility] Stop: 09/16/22 08:59 Last Admin: 08/19/22 08:21 Dose: 400 mg Miscellaneous (Carbohydrates For Hypoglycemia ) 15 - 30 gm PO UD PRN PRN Reason: Hypoglycemia Protocol Stop: 09/16/22 04:08 Miscellaneous Information (Pharmacy Glycemic Mgmt Consult) 1 each N/A UD PRN; Protocol PRN Reason: Consult Stop: 09/17/22 17:08 Pantoprazole Sodium (Pantoprazole 40 Mg Tab) 40 mg PO QAM RAEANN Stop: 08/20/22 09:01 Last Admin: 08/19/22 08:21 Dose: 40 mg Polyethylene Glycol (Polyethylene (Miralax) 17 Gm Pack) 17 gm PO DAILY PRN PRN Reason: Constipation Stop: 09/16/22 02:07 Prednisone (Prednisone 10 Mg Tablet) 10 mg PO DAILY RAEANN Stop: 09/16/22 08:59 Last Admin: 08/19/22 08:22 Dose: 10 mg Rosuvastatin Calcium (Rosuvastatin Calcium 5 Mg Tab) 5 mg PO SuWe@0900 [facility] Stop: 09/16/22 08:59 Last Admin: 08/17/22 08:01 Dose: 5 mg Sennosides (Senna 8.6 Mg Tab) 17.[address] [facility] Stop: 09/16/22 20:59 Last Admin: 08/18/22 19:47 Dose: 17.2 mg Sodium Chloride (Sodium Chloride 0.65% Na Soln 45 Ml ([place])) 2 sprays NA Q15M PRN PRN Reason: Dryness Stop: 09/17/22 08:05
[2022-08-19] MEDS: BENZONATATE 100 MG CAPSULE PO PRN (19:58)
[2022-08-19] MEDS: SENNA 8.6 MG TAB PO SCH (20:01)
[2022-08-20] MEDS: BENZONATATE 100 MG CAPSULE PO PRN ×3 (02:49→16:57)
[2022-08-20 06:02] LABS: Partial Thromboplastin Ratio 2.1
[2022-08-20] MEDS: LEVOTHYROXINE SODIUM 88 MCG TABLET PO SCH (06:05)
[2022-08-20 06:11] LABS: BUN Creatinine Ratio 14.5 (10-20); Calcium 8.7 mg/dl (8.5-10.1); Creatinine Clr Calc Pharmacy 78.6 ml/min; Est GFR (Non-African American) 79.4 ml/min; Potassium 3.1 mmol/L (3.5-5.1)
[2022-08-20] MEDS ORDERED: POTASSIUM CHLORIDE 20 MEQ/15 ML UDC PO STA (06:18)
[2022-08-20 06:32] LABS: Partial Thromboplastin Time 59.1 Seconds (21.0-31.0)
[2022-08-20] MEDS ORDERED: POTASSIUM CHLORIDE CRTAB 20 MEQ TABCR PO SCH (07:30)
[2022-08-20] MEDS: INSULIN ASPART PER UNIT SC SCH ×4 (08:23→21:02)
[2022-08-20] MEDS: LANTUS PER UNIT CHARGE SQ SCH (08:24)
[2022-08-20] MEDS: PANTOprazole 40 MG TAB PO SCH (08:25)
[2022-08-20] MEDS: predniSONE 10 MG TABLET PO SCH (08:25)
[2022-08-20] MEDS: CETIRIZINE HCL 10 MG TABLET PO SCH (08:25)
[2022-08-20] MEDS: CYANOCOBALAMIN (B-12) 500 MCG TABLET PO SCH (08:25)
[2022-08-20] MEDS: CITALOPRAM 20 MG TAB PO SCH (08:26)
[2022-08-20] MEDS: MAGNESIUM OXIDE 400 MG TAB PO SCH ×2 (08:26→20:03)
[2022-08-20] MEDS: acetaZOLAMIDE 250 MG TAB PO SCH ×2 (08:26→16:55)
[2022-08-20] MEDS: ADVANCED PROBIOTIC 1250 MG CAPSULE PO SCH (08:26)
[2022-08-20] MEDS: FUROSEMIDE 40 MG/4 ML VIAL IV SCH ×2 (08:27→20:03)
[2022-08-20] MEDS: FLUTICASONE PROPIONATE NA SPR 16 GM BTL SCH ×2 (08:28→20:05)
--- NOTE | 2022-08-20 08:48 | Pulmonology Progress Note ---
Date of Service August 20, 2022 Assessment & Plan (1) Pulmonary embolism: Acute cor pulmonale presence: unspecified Chronicity: acute Pulmonary embolism type: other Qualified Code(s): I26.99 - Other pulmonary embolism without acute cor pulmonale (2) Interstitial lung disease: (3) Acute and chronic respiratory failure with hypoxia: (4) Pulmonary hypertension: (5) COVID-19 long hauler: (6) Cor pulmonale: Plan Reason : 57-year-old female past medical history ILD, chronic hypoxia on 3L nasal cannula presents to the ICU with acute on chronic hypoxia respiratory failure and suspected extensive pulmonary embolism. -- Acute hypoxic respiratory failure Etiology is multifactorial I think cor pulmonale is playing a major part here. Patient did have 2 CTA chest done while in the hospital and both unfortunately were equivocal diagnosing pulmonary embolism due to mixing artifact 2D echo done during this hospitalization does not show any significant change in the right-sided pressures compared to before. She does have PASP of 76 mmHg BNP 3500 on presentation The possibility of patient having infectious etiology is low as I do not see any parenchymal disease on the CT chest Patient is on 10 mg of prednisone, possibility of PJP is very low. --Severe pulmonary hypertension/cor pulmonale Continue with diuretics --Obesity With probable DEVON/OHS Would benefit from BiPAP/CPAP nightly and as needed shortness of breath Plan: In/out: - 633 mL, urine output 1990 Hypokalemia being replaced. I will start the patient on 20 mEq p.o. twice daily of potassium chloride. Continue with Lasix and Diamox. Given the persistent tachycardia, this could be rebound from patient's metoprolol. I will start the patient on metoprolol but at a lower dose 25 mg twice daily. Can increase it if blood pressure tolerates Will continue with heparin drip for the time being. Can consider doing another CTA with delayed contrast to see if we can decrease the mixing artifact. Would recommend to speak with radiology prior to ordering it Case was discussed with Dr. Lantigua Please note the above document was generated using voice recognition software. It may contain grammatical, syntax or spelling errors.Any formal questions or concerns about the content, text or information contained within the body of this dictation should be directly addressed to the provider for clarification. Admission and Anticipated Discharge Date Admission Date: August 17, 2022 Subjective Patient seen and examined at bedside. No acute distress, no adverse events overnight Patient was saturating 91-92% on 4 L nasal cannula. I did try to go down to 4 L but she desaturated to 89-88%. Overall she says she is feeling better. No hematuria, no hematochezia. No bowel movement. Positive flatulence Fair appetite. No nausea or vomiting No headache, no dizziness Review of Systems Review of Systems: All systems reviewed & are unremarkable except as noted in Subjective Physical Exam Physical Exam: Constitutional: No acute distress HEENT: EOMI, PERRLA Respiratory system: Decreased air entry bilaterally, no wheeze, no rhonchi, p ositive crackles appreciated bilaterally, especially anteriorly CVS: S1-S2 positive, no murmurs or gallops, accentuated P2 Abdomen: Soft, nontender, nondistended, positive bowel sounds x4 Extremities: +2 pulses bilaterally radialis/ dorsalis pedis, no cyanosis, +1 pitting edema bilateral lower extremity Neuro: Awake alert oriented x3 Psych: Normal mood and affect G/U: Positive Resendiz Skin: no rashes, warm and dry Lymphatic: no cervical or axillary lymphadenopathy Results & Data Results & Data ([facility]) Vital Signs (Past 12 Hours) Vital Signs Temp Pulse Pulse Resp BP BP Pulse Ox 08/20/22 08:00 117 H 24 92 08/20/22 07:35 119/83 08/20/22 07:35 111 H 29 H 91 08/20/22 07:00 98 H 25 H 93 08/20/22 06:00 89 27 H 92 08/20/22 05:00 93 H 14 96 08/20/22 04:00 91 H 23 96 08/20/22 03:00 90 30 H 91 08/20/22 02:48 115/81 08/20/22 02:48 99 H 21 90 08/20/22 02:00 88 12 97 08/20/22 01:00 86 19 96 08/20/22 00:00 98 H 18 95 08/19/22 23:00 90 17 96 08/20/22 03:20 36.8 C 92 H 21 115/81 93 08/19/22 23:23 93 H 08/20/22 00:03 36.8 C 08/19/22 22:50 91 H 20 97 08/19/22 22:40 91 H 21 96 08/19/22 22:38 92 H 19 97 08/19/22 22:38 105/81 08/19/22 22:30 93 H 27 H 96 08/19/22 22:20 93 H 16 95 08/19/22 22:10 95 H 18 95 08/19/22 22:00 92 H 18 95 08/19/22 21:50 92 H 22 95 08/19/22 21:40 94 H 21 95 08/19/22 21:30 94 H 22 96 08/19/22 21:20 94 H 23 95 08/19/22 21:10 98 H 28 H 93 08/19/22 21:00 96 H 24 95 08/19/22 20:50 96 H 26 H 94 O2 Del Method O2 Flow Rate 08/20/22 08:00 Nasal Cannula 5 08/20/22 07:35 08/20/22 07:35 08/20/22 07:00 08/20/22 06:00 08/20/22 05:00 08/20/22 04:00 08/20/22 03:00 08/20/22 02:48 08/20/22 02:48 08/20/22 02:00 08/20/22 01:00 08/20/22 00:00 08/19/22 23:00 08/20/22 03:20 Nasal Cannula 5 08/19/22 23:23 08/20/22 00:03 08/19/22 22:50 08/19/22 22:40 08/19/22 22:38 08/19/22 22:38 08/19/22 22:30 08/19/22 22:20 08/19/22 22:10 08/19/22 22:00 08/19/22 21:50 08/19/22 21:40 08/19/22 21:30 08/19/22 21:20 08/19/22 21:10 08/19/22 21:00 08/19/22 20:50 Laboratory Results 08/19/22 04:56 08/20/22 04:50 PG Care Time/CCT Total # of Minutes Spent Total Time Spent with Patient: Total time spent is greater than 50% in coordination of care (as documented) at patient's floor/unit and/or counseling patient: Coding Level of Care Code 94752 SUB INP/OBS CARE 3/50MIN Diagnoses Pulmonary embolism I26.99 Acute cor pulmonale presence: unspecified Chronicity: acute Pulmonary embolism type: other Interstitial lung disease J84.9 Acute and chronic respiratory failure with hypoxia J96.21 Pulmonary hypertension I27.20 COVID-19 long hauler U09.9 Cor pulmonale I27.81
[2022-08-20] MEDS: CEFDINIR 300 MG CAP PO SCH ×2 (09:31→20:03)
[2022-08-20] MEDS: METOPROLOL TARTRATE 25 MG TAB PO SCH ×2 (10:25→20:04)
--- NOTE | 2022-08-20 12:40 | Hospitalist Progress Note ---
Date of Service August 20, 2022 Assessment & Plan (1) Acute and chronic respiratory failure with hypoxia: Plan 57-year-old lady with PMH of T2DM, chronic hypoxemic respiratory failure on 3 L oxygen at home, HLD, hypothyroidism, hyponatremia, ILD, hypertension, pulmonary hypertension, morbid obesity, immunosuppression due to chronic steroid use presented to the ED/3 with complaint of acute trouble breathing. Patient had COVID in April 2021 complicated with interstitial lung disease. She is being managed for the following: Acute on chronic respiratory failure Interstitial lung disease Pulmonary hypertension/cor pulmonale Possible Pulmonary embolism Possible pneumonia, ruled out Patient presents with 2-day history of worsening shortness of breath, patient has a history of COVID-19 and interstitial lung disease. Admitting WBC WNL and viral panel negative. Admitting troponin and BNP elevated. Patient with no chest pain at admission. 08/16 and 08/17 (repeat) CTA Chest : Mixing artifact vs PE on Rt side. PAH w/ dilatation of Rt heart chamber, and Rt heart dysfunction noted. 4.5 x 2.2 x 1.7 cm groundglass opacity within the superior segment of the right lower lobe noted; follow up Chest CT in 3 month is recommended to ensure resolution. 08/17 BLE doppler: no DVT. 08/17 ECHO: Right ventricle is severely dilated, RV systolic function is severely reduced, right atrium is severely dilated. Right ventricular systolic pressure greater than 60 mmHg. Ejection fraction 65 to 70%. Flattened septum consistent with right pressure/volume overload. On Lasix and Demadex per pulmonology. Titrate potassium supplement Pulmonology recommended to repeat the CTA chest in the next few days (please discuss with radiologist about the repeat CT to get a better picture to evaluate pulmonary embolism) Currently on 5 L nasal cannula oxygen, patient states that she uses 3 to 4 L at home, patient is short of breath with minimal activity. PT/OT when able. Repeat CTA chest on Monday, inform radiology prior to ordering CTA chest. Continue with heparin drip for now. Likely demand ischemia: Elevated troponin at admission, no chest pain, likely secondary to acute and chronic respiratory failure. Echo reviewed. Continue home cardiac medications. Initially metoprolol was held considering acute rt heart strain, now that it is deemed more likely chronic Rt heart dilatation, metoprolol resumed 08/20, uptitrate as BP tolerates. Mild hyponatremia:Appears chronic, admitting sodium of 130 which appears to be her baseline. Sodium level today 134. Monitor as needed. UTI: Admitting urine culture positive for E. coli, received antibiotic on August 17 and , put her back on cefdinir starting August 20 to complete the antibiotic course. Acute kidney injury:Creatinine of 1.45 at presentation, likely prerenal. Resolved. Diarrhea: At presentation, r/o c diff, recent hopsitalization. Stool PCR negative. Diarrhea resolved. Full Code Heparin Drip Admission and Anticipated Discharge Date Admission Date: August 17, 2022 Subjective Patient seen and examined at bedside as a follow-up of acute on chronic respiratory failure complicated by interstitial lung disease, pulmonary hypertension, cor pulmonale, questionable pulmonary embolism. Patient was sitting up semiupright in bed, on 5 L nasal cannula oxygen, reports feeling better, reports feeling short of breath with minimal exertion, reports eating okay, has her last bowel movement on Monday and is taking laxatives, will continue to monitor, denies any chest pain/headache/dizziness/sore throat/cough/belly pain/other review of symptoms. Patient sister at bedside, updated. Physical Exam Physical Exam: GENERAL: Alert and oriented x3. NAD, on 5L NC O2. Appears weak/frail. HEENT: No pallor, no icterus. Pupils equal, round and reactive to light. Oral mucosa moist. NECK: No JVD, no neck masses. HEART: S1 and S2 heard. tachycardia +. No murmur, no gallop. RESPIRATORY SYSTEM: Normal AP diameter. No accessory muscle use. No wheezing, fine crackles mid and basal b/l. sob w/ conversation noted towards the end. ABDOMEN: Soft, bowel sounds present, nontender, no distention. CENTRAL NERVOUS SYSTEM: No facial droop. Speech is clear. Obeys simple commands. Moves extremities. EXTREMITIES: 1+ ble edema, no erythema seen. Results & Data Results & Data ([facility]) Vital Signs (Past 12 Hours) Vital Signs Temp Pulse Pulse Resp BP BP Pulse Ox 08/20/22 11:00 106 H 26 H 92 08/20/22 10:00 112 H 34 H 93 08/20/22 08:00 08/20/22 09:00 112 H 34 H 92 08/20/22 08:24 119 H 35 H 90 08/20/22 08:24 122/95 08/20/22 08:00 117 H 24 92 08/20/22 07:35 119/83 08/20/22 07:35 111 H 29 H 91 08/20/22 07:00 98 H 25 H 93 08/20/22 06:00 89 27 H 92 08/20/22 05:00 93 H 14 96 08/20/22 04:00 91 H 23 96 08/20/22 03:00 90 30 H 91 08/20/22 02:48 115/81 08/20/22 02:48 99 H 21 90 08/20/22 02:00 88 12 97 08/20/22 01:00 86 19 96 08/20/22 03:20 36.8 C 92 H 21 115/81 93 O2 Del Method O2 Flow Rate 08/20/22 11:00 08/20/22 10:00 08/20/22 08:00 Nasal Cannula 5 08/20/22 09:00 08/20/22 08:24 08/20/22 08:24 08/20/22 08:00 Nasal Cannula 5 08/20/22 07:35 08/20/22 07:35 08/20/22 07:00 08/20/22 06:00 08/20/22 05:00 08/20/22 04:00 08/20/22 03:00 08/20/22 02:48 08/20/22 02:48 08/20/22 02:00 08/20/22 01:00 08/20/22 03:20 Nasal Cannula 5
[2022-08-20] MEDS: POTASSIUM CHLORIDE CRTAB 20 MEQ TABCR PO SCH ×2 (16:55→20:04)
[2022-08-20] MEDS: SENNA 8.6 MG TAB PO SCH (20:05)
[2022-08-20] MEDS: HEPARIN SODIUM/DEXTROSE 25,000 UNITS/500 ML BAG IV SCH (23:21)
[2022-08-21] MEDS: LEVOTHYROXINE SODIUM 88 MCG TABLET PO SCH (05:56)
[2022-08-21 08:11] LABS: Partial Thromboplastin Ratio 2.1
[2022-08-21 08:14] LABS: BUN Creatinine Ratio 22.8 (10-20); Calcium 8.9 mg/dl (8.5-10.1); Creatinine Clr Calc Pharmacy 82.5 ml/min; Est GFR (African American) 97.7 ml/min; Est GFR (Non-African American) 84.3 ml/min; Magnesium 1.9 mg/dl (1.7-2.4); Phosphorus 3.7 mg/dl (2.5-4.9)
[2022-08-21 08:40] LABS: Partial Thromboplastin Time 58.1 Seconds (21.0-31.0)
[2022-08-21] MEDS: INSULIN ASPART PER UNIT SC SCH ×5 (09:27→20:37)
[2022-08-21] MEDS: METOPROLOL TARTRATE 25 MG TAB PO SCH ×2 (09:51→20:24)
[2022-08-21] MEDS: LANTUS PER UNIT CHARGE SQ SCH (09:54)
[2022-08-21] MEDS: CITALOPRAM 20 MG TAB PO SCH (10:04)
[2022-08-21] MEDS: predniSONE 10 MG TABLET PO SCH (10:04)
[2022-08-21] MEDS: acetaZOLAMIDE 250 MG TAB PO SCH ×2 (10:04→17:55)
[2022-08-21] MEDS: POTASSIUM CHLORIDE CRTAB 20 MEQ TABCR PO SCH ×2 (10:05→20:27)
[2022-08-21] MEDS: CETIRIZINE HCL 10 MG TABLET PO SCH (10:05)
[2022-08-21] MEDS: MAGNESIUM OXIDE 400 MG TAB PO SCH ×2 (10:06→20:25)
[2022-08-21] MEDS: CYANOCOBALAMIN (B-12) 500 MCG TABLET PO SCH (10:06)
[2022-08-21] MEDS: FUROSEMIDE 40 MG/4 ML VIAL IV SCH (10:06)
[2022-08-21] MEDS: CEFDINIR 300 MG CAP PO SCH ×2 (10:06→20:25)
[2022-08-21] MEDS: ADVANCED PROBIOTIC 1250 MG CAPSULE PO SCH (10:08)
[2022-08-21] MEDS: FLUTICASONE PROPIONATE NA SPR 16 GM BTL SCH ×2 (10:08→20:23)
[2022-08-21] MEDS: ROSUVASTATIN CALCIUM 5 MG TAB PO SCH (10:09)
[2022-08-21] MEDS: BENZONATATE 100 MG CAPSULE PO PRN ×3 (10:11→22:37)
--- NOTE | 2022-08-21 10:37 | Pulmonology Progress Note ---
Date of Service August 21, 2022 Assessment & Plan (1) Pulmonary embolism: Acute cor pulmonale presence: unspecified Chronicity: acute Pulmonary embolism type: other Qualified Code(s): I26.99 - Other pulmonary embolism without acute cor pulmonale (2) Interstitial lung disease: (3) Acute and chronic respiratory failure with hypoxia: (4) Pulmonary hypertension: (5) COVID-19 long hauler: (6) Cor pulmonale: Plan Reason : 57-year-old female past medical history ILD, chronic hypoxia on 3L nasal cannula presents to the ICU with acute on chronic hypoxia respiratory failure and suspected extensive pulmonary embolism. -- Acute hypoxic respiratory failure Etiology is multifactorial I think cor pulmonale is playing a major part here. Patient did have 2 CTA chest done while in the hospital and both unfortunately were equivocal diagnosing pulmonary embolism due to mixing artifact 2D echo done during this hospitalization does not show any significant change in the right-sided pressures compared to before. She does have PASP of 76 mmHg BNP 3500 on presentation The possibility of patient having infectious etiology is low as I do not see any parenchymal disease on the CT chest Patient is on 10 mg of prednisone, possibility of PJP is very low. --Severe pulmonary hypertension/cor pulmonale Continue with diuretics --Obesity With probable DEVON/OHS Would benefit from BiPAP/CPAP nightly and as needed shortness of breath Plan: In/out: - 331 mL, urine output 1303, -3.5 L since coming to the hospital Can transition Lasix to 80 mg p.o. twice daily which will be patient's home dose Continue with Diamox Will continue with heparin drip for the time being. Can consider doing another CTA with delayed contrast to see if we can decrease the mixing artifact. Would recommend to speak with radiology prior to ordering it Case was discussed with Dr. Lantigua Please note the above document was generated using voice recognition software. It may contain grammatical, syntax or spelling errors.Any formal questions or concerns about the content, text or information contained within the body of this dictation should be directly addressed to the provider for clarification. Admission and Anticipated Discharge Date Admission Date: August 17, 2022 Subjective Patient seen and examined at bedside. No acute distress, no adverse events overnight Was saturating 98-99% on 5 L nasal cannula. I went down to 3 L which is patient's home flow. Denies any chest pain. No headache, no nausea, no vomiting Has been urinating well No hematuria, no hematochezia Review of Systems Review of Systems: All systems reviewed & are unremarkable except as noted in Subjective Physical Exam Physical Exam: Constitutional: No acute distress HEENT: EOMI, PERRLA Respiratory system: Decreased air entry bilaterally, no wheeze, no rhonchi, positive crackles appreciated bilaterally, especially anteriorly CVS: S1-S2 positive, no murmurs or gallops, accentuated P2 Abdomen: Soft, nontender, nondistended, positive bowel sounds x4 Extremities: +2 pulses bilaterally radialis/ dorsalis pedis, no cyanosis, +1 pitting edema bilateral lower extremity Neuro: Awake alert oriented x3 Psych: Normal mood and affect G/U: Positive Resendiz Skin: no rashes, warm and dry Lymphatic: no cervical or axillary lymphadenopathy Results & Data Results & Data ([facility]) Vital Signs (Past 12 Hours) Vital Signs Temp Pulse Pulse Resp BP Pulse Ox O2 Del Method 08/21/22 07:54 36.4 C L 75 20 105/73 98 Nasal Cannula 08/21/22 02:57 36.6 C 67 18 103/73 96 Nasal Cannula 08/21/22 00:00 86 08/20/22 23:01 36.7 C 78 18 118/80 92 Nasal Cannula O2 Flow Rate 08/21/22 07:54 5 08/21/22 02:57 08/21/22 00:00 08/20/22 23:01 Laboratory Results 08/19/22 04:56 08/21/22 07:13 PG Care Time/CCT Total # of Minutes Spent Total Time Spent with Patient: Total time spent is greater than 50% in coordination of care (as documented) at patient's floor/unit and/or counseling patient: Coding Level of Care Code 54648 SUB INP/OBS CARE 2/35MIN Diagnoses Pulmonary embolism I26.99 Acute cor pulmonale presence: unspecified Chronicity: acute Pulmonary embolism type: other Interstitial lung disease J84.9 Acute and chronic respiratory failure with hypoxia J96.21 Pulmonary hypertension I27.20 COVID-19 long hauler U09.9 Cor pulmonale I27.81
[2022-08-21 11:07] LABS: Pneumocystis jirovecii PCRQual NOT DETECTED; Pneumocystis jirovecii Source SPUTUM
--- NOTE | 2022-08-21 14:49 | Hospitalist Progress Note ---
Date of Service August 21, 2022 Assessment & Plan (1) Acute and chronic respiratory failure with hypoxia: Plan 57-year-old lady with PMH of T2DM, chronic hypoxemic respiratory failure on 3 L oxygen at home, HLD, hypothyroidism, hyponatremia, ILD, hypertension, pulmonary hypertension, morbid obesity, immunosuppression due to chronic steroid use presented to the ED/3 with complaint of acute trouble breathing. Patient had COVID in April 2021 complicated with interstitial lung disease. She is being managed for the following: Acute on chronic respiratory failure Interstitial lung disease Pulmonary hypertension/cor pulmonale Possible Pulmonary embolism Possible pneumonia, ruled out Patient presents with 2-day history of worsening shortness of breath, patient has a history of COVID-19 and interstitial lung disease. Admitting WBC WNL and viral panel negative. Admitting troponin and BNP elevated. Patient with no chest pain at admission. 08/16 and 08/17 (repeat) CTA Chest : Mixing artifact vs PE on Rt side. PAH w/ dilatation of Rt heart chamber, and Rt heart dysfunction noted. 4.5 x 2.2 x 1.7 cm groundglass opacity within the superior segment of the right lower lobe noted; follow up Chest CT in 3 month is recommended to ensure resolution. 08/17 BLE doppler: no DVT. 08/17 ECHO: Right ventricle is severely dilated, RV systolic function is severely reduced, right atrium is severely dilated. Right ventricular systolic pressure greater than 60 mmHg. Ejection fraction 65 to 70%. Flattened septum consistent with right pressure/volume overload. On Lasix and Demadex per pulmonology. Titrate potassium supplement, will swicth iv lasix to home PO dose of lasix 08/21. Pulmonology recommended to repeat the CTA chest in the next few days (please discuss with radiologist about the repeat CT to get a better picture to evaluate pulmonary embolism) Currently on 5 L nasal cannula oxygen, patient states that she uses 3 to 4 L at home, patient is short of breath with minimal activity. PT/OT when able. Repeat CTA chest on Monday, inform radiology prior to ordering CTA chest. Continue with heparin drip for now. Likely demand ischemia: Elevated troponin at admission, no chest pain, likely secondary to acute and chronic respiratory failure. Echo reviewed. Continue home cardiac medications. Initially metoprolol was held considering acute rt heart strain, now that it is deemed more likely chronic Rt heart dilatation, metoprolol resumed 08/20, uptitrate as BP tolerates. Mild hyponatremia:Appears chronic, admitting sodium of 130 which appears to be her baseline. Stable Na level. Monitor as needed. UTI: Admitting urine culture positive for E. coli, received antibiotic on August 17 and , put her back on cefdinir starting August 20 to complete the antibiotic course. Acute kidney injury:Creatinine of 1.45 at presentation, likely prerenal. Resolved. Diarrhea: At presentation, r/o c diff, recent hospitalization. Stool PCR negative. Diarrhea resolved. Full Code Heparin Drip Admission and Anticipated Discharge Date Admission Date: August 17, 2022 Subjective Patient seen and examined at bedside as a follow-up of acute on chronic respiratory failure complicated by interstitial lung disease, pulmonary hypertension, cor pulmonale, questionable pulmonary embolism. Patient was sitting up semiupright in bed, on 5 L nasal cannula oxygen, reports feeling better, reports feeling short of breath with minimal exertion which is minimally improving per pt, reports eating okay, has her last bowel movement yesterday, denies any chest pain/headache/dizziness/sore throat/cough/belly pain/other review of symptoms. Physical Exam Physical Exam: GENERAL: Alert and oriented x3. NAD, on 5L NC O2. Appears weak/frail. HEENT: No pallor, no icterus. Pupils equal, round and reactive to light. Oral mucosa moist. NECK: No JVD, no neck masses. HEART: S1 and S2 heard. regular rate and rhythm. No murmur, no gallop. RESPIRATORY SYSTEM: Normal AP diameter. No accessory muscle use. No wheezing, fine crackles mid and basal b/l. sob w/ conversation noted towards the end -- noted earlier is improving. ABDOMEN: Soft, bowel sounds present, nontender, no distention. CENTRAL NERVOUS SYSTEM: No facial droop. Speech is clear. Obeys simple commands. Moves extremities. EXTREMITIES: 1+ ble edema, no erythema seen. Results & Data Results & Data ([facility]) Vital Signs (Past 12 Hours) Vital Signs Temp Pulse Pulse Resp BP Pulse Ox Pulse Ox 08/21/22 08:00 08/21/22 08:00 72 08/21/22 11:50 88 L 08/21/22 11:30 36.5 C 83 18 118/82 90 08/21/22 07:54 36.4 C L 75 20 105/73 98 08/21/22 02:57 36.6 C 67 18 103/73 96 O2 Del Method O2 Flow Rate O2 Flow Rate 08/21/22 08:00 Nasal Cannula 3.5 08/21/22 08:00 08/21/22 11:50 5 08/21/22 11:30 Nasal Cannula 3.5 08/21/22 07:54 Nasal Cannula 5 08/21/22 02:57 Nasal Cannula
[2022-08-21] MEDS: FUROSEMIDE 80 MG TAB PO SCH (17:55)
[2022-08-21 18:27] LABS: Fungitell (1-3)-B-D-Glucan <31 pg/mL
[2022-08-21] MEDS: SENNA 8.6 MG TAB PO SCH (20:25)
[2022-08-21] MEDS: HEPARIN SODIUM/DEXTROSE 25,000 UNITS/500 ML BAG IV SCH (22:38)
[2022-08-22] MEDS: LEVOTHYROXINE SODIUM 88 MCG TABLET PO SCH (05:48)
[2022-08-22 08:04] LABS: BUN Creatinine Ratio 22.9 (10-20); Calcium 9.2 mg/dl (8.5-10.1); Creatinine Clr Calc Pharmacy 68.2 ml/min; Est GFR (African American) 77.2 ml/min; Est GFR (Non-African American) 66.6 ml/min; Potassium 4.3 mmol/L (3.5-5.1)
[2022-08-22] MEDS: MAGNESIUM OXIDE 400 MG TAB PO SCH ×2 (08:40→21:35)
[2022-08-22] MEDS: ADVANCED PROBIOTIC 1250 MG CAPSULE PO SCH (08:40)
[2022-08-22] MEDS: BENZONATATE 100 MG CAPSULE PO PRN ×2 (08:40→17:46)
[2022-08-22 08:41] LABS: Partial Thromboplastin Time 55.7 Seconds (21.0-31.0)
[2022-08-22] MEDS: METOPROLOL TARTRATE 25 MG TAB PO SCH ×2 (08:41→21:35)
[2022-08-22] MEDS: CEFDINIR 300 MG CAP PO SCH ×2 (08:41→21:34)
[2022-08-22] MEDS: predniSONE 10 MG TABLET PO SCH (08:41)
[2022-08-22] MEDS: CYANOCOBALAMIN (B-12) 500 MCG TABLET PO SCH (08:42)
[2022-08-22] MEDS: acetaZOLAMIDE 250 MG TAB PO SCH ×2 (08:42→17:47)
[2022-08-22] MEDS: CETIRIZINE HCL 10 MG TABLET PO SCH (08:42)
[2022-08-22] MEDS: FUROSEMIDE 80 MG TAB PO SCH ×2 (08:43→17:47)
[2022-08-22] MEDS: FLUTICASONE PROPIONATE NA SPR 16 GM BTL SCH ×2 (08:43→21:34)
[2022-08-22] MEDS: CITALOPRAM 20 MG TAB PO SCH (08:43)
[2022-08-22] MEDS ORDERED: SODIUM CHLORIDE 0.9% 500 ML IV SCH (08:45)
[2022-08-22] MEDS: POTASSIUM CHLORIDE CRTAB 20 MEQ TABCR PO SCH ×2 (08:47→21:36)
[2022-08-22] MEDS: INSULIN ASPART PER UNIT SC SCH ×4 (08:55→21:34)
[2022-08-22] MEDS: LANTUS PER UNIT CHARGE SQ SCH (08:55)
[2022-08-22] MEDS ORDERED: OPTIRAY 320 500ml IV ONE (10:01)
--- NOTE | 2022-08-22 11:02 | CT Scan Report ---
CT ANGIOGRAPHY OF THE CHEST CLINICAL HISTORY: w/ delayed contrast; for Pulmonary Embolism. COMPARISON STUDY: Chest CT July 24, 2022, August 16, 2022 and August 17, 2022. TECHNIQUE: Helical axial images of the chest were obtained following intravenous injection of 120 cc of Optiray 320 IV. Sagittal and coronal reconstructed reviewed as well as maximal intensity projectio ns on an independent 3-D workstation. Automated exposure control was utilized for the study. A dose lowering technique was utilized adhering to the principles of ALARA. FINDINGS: No central or lobar pulmonary emboli are identified. The subsegmental and subsegmental pulm onary arteries are suboptimally assessed due to respiratory motion and suboptimal opacification. Kong khoi, pulmonary arterial opacification is significantly improved when compared to prior CTA of August 17, 2022. Dilatation of the ascending aorta, measuring 4.3 cm is unchanged. There is moderate dilatat ion of the central pulmonary arteries. Right heart chambers are dilated with straightening of the int erventricular septum. There is no pneumothorax or pleural effusion. Evidence for interstitial lung di sease is again noted. Subpleural reticulation and groundglass opacity and honeycombing is present. Pr eviously described groundglass opacity within the right lower lobe is better depicted on prior CT. Sl ight increased ground glass opacity within the lungs is noted. No confluent consolidation is present. No acute fractures within the bony thorax. Visualized portions of the upper abdomen are unremarkable . IMPRESSION: 1. No central or lobar pulmonary emboli. Segmental and subsegmental pulmonary arteries suboptimally a ssessed, as described above. Overall, opacification of pulmonary arteries is significantly improved w hen compared to prior CTA. Apparent right-sided filling defects are prior CTA were artifactual. 2. Pulmonary fibrosis. Subtle ground glass opacity within the lungs could reflect a superimposed infe ctious process. 3. Dilatation of the central pulmonary arteries and right heart chambers. The findings indicate pulmo nary arterial hypertension with elevated right heart pressures. ACT 112: Negative or not required by law. Electronically signed by: Matt King M.D. 08/22/2022 11:00 AM
--- NOTE | 2022-08-22 15:27 | Pulmonology Progress Note ---
Date of Service August 22, 2022 Assessment & Plan (1) Acute and chronic respiratory failure with hypoxia: Plan: * Hypoxia/Pulmonary Hypertension: * Appears to be nearing her baseline at this point. Continue w/ home dosing of Lasix/Diamox. * Continue fluid restrictions. * Supplemental O2 as needed. * Encouraged utilization of CPAP/BiPAP which she declines. * Pulmonary Embolism: * Repeat CTA today w/o findings consistent with PE. * Heparin gtt can be discontinued at this time. * This does not likely represent new PE as imaging previously suspicious for motion artifact in the unfortunate patient w/ chronic pulmonary hypertension w/ ILD 2/2 COVID-19 infection. (2) Interstitial lung disease: (3) Volume overload: (4) Pulmonary embolism: Acute cor pulmonale presence: unspecified Chronicity: acute Pulmonary embolism type: other Qualified Code(s): I26.99 - Other pulmonary embolism without acute cor pulmonale Admission and Anticipated Discharge Date Admission Date: August 17, 2022 Supervising Physician Co-Signing Physician Notes Patient seen and examined. EMR reviewed. Discussed with off going fermentologist as well as with [facility]. Agree with assessment plan as noted. After review of the patient's imaging, I do not think she had a pulmonary embolism and agree with discontinuation of anticoagulation. She appears to be approaching her baseline with regards to her oxygen requirement. Would recommend continued attention to volume status with diuresis as clinically appropriate. The patient will require outpatient follow-up with Dr. Almanzar and potential referral to a pulmonary hypertension center of excellence. Outpatient sleep study also recommended. Discussed with patient at bedside. Subjective Patient was seen and evaluated at bedside today. She reports feeling generally weak which has been ongoing since her presentation. She remains on 4 to 5 L nasal cannula. She offers no other complaints at this time. Review of Systems Review of Systems: A complete 6 point review of systems was reviewed with the patient with pertinent positives and negatives as per history of present illness. All else were negative. Physical Exam Physical Exam: VITAL SIGNS - Vital signs and nursing notes were reviewed. GENERAL - 57-year-old female appearing her stated age. Communicates well with provider and answers questions appropriately. LUNGS - Chest wall symmetric without accessory muscle use, intercostals retractions, or central cyanosis. Normal vesicular breath sounds CTA B/L. No wheezes, rales, or rhonchi appreciated. CARDIAC - RRR with S1/S2. No murmur, rubs, or gallops appreciated. ABDOMEN - Abdominal contour obese without pulsations or visible masses. BS normoactive all four quadrants. No tenderness, palpable masses, hepatosplenomegaly, or ascites noted. EXTREMITIES - No clubbing or peripheral cyanosis. Moderate pretibial edema improved from prior exams. +3/5 radial and dorsalis pedis pulses palpated thro ughout. +5/5 strength noted in UE/LE bilaterally. Results & Data Results & Data ([facility]) Vital Signs (Past 12 Hours) Vital Signs Temp Pulse Resp BP Pulse Ox O2 Del Method O2 Flow Rate 08/22/22 14:11 Nasal Cannula 5 08/22/22 11:39 36.8 C 74 18 96/68 L 92 Nasal Cannula 5 08/22/22 07:33 36.4 C L 79 20 104/73 97 Nasal Cannula 5 PG Care Time/CCT Total # of Minutes Spent Total Time Spent with Patient: Total time spent is greater than 50% in coordination of care (as documented) at patient's floor/unit and/or counseling patient: Coding Level of Care Code 99269 SUB INP/OBS CARE 3/50MIN Diagnoses Acute and chronic respiratory failure with hypoxia J96.21 Interstitial lung disease J84.9 Volume overload E87.70 Pulmonary embolism I26.99 Acute cor pulmonale presence: unspecified Chronicity: acute Pulmonary embolism type: other Time Spent (min) 32
--- NOTE | 2022-08-22 15:39 | Hospitalist Progress Note ---
Date of Service August 22, 2022 Assessment & Plan (1) Acute and chronic respiratory failure with hypoxia: Plan 57-year-old lady with PMH of T2DM, chronic hypoxemic respiratory failure on 3 L oxygen at home, HLD, hypothyroidism, hyponatremia, ILD, hypertension, pulmonary hypertension, morbid obesity, immunosuppression due to chronic steroid use presented to the ED/3 with complaint of acute trouble breathing. Patient had COVID in April 2021 complicated with interstitial lung disease. She is being managed for the following: Acute on chronic respiratory failure Interstitial lung disease Pulmonary hypertension/cor pulmonale Possible Pulmonary embolism Possible pneumonia Patient presents with 2-day history of worsening shortness of breath, patient has a history of COVID-19 and interstitial lung disease. Admitting WBC WNL and viral panel negative. Admitting troponin and BNP elevated. Patient with no chest pain at admission. 08/16 and 08/17 (repeat) CTA Chest : Mixing artifact vs PE on Rt side. PAH w/ dilatation of Rt heart chamber, and Rt heart dysfunction noted. 4.5 x 2.2 x 1.7 cm groundglass opacity within the superior segment of the right lower lobe noted; follow up Chest CT in 3 month is recommended to ensure resolution. 08/17 BLE doppler: no DVT. 08/17 ECHO: Right ventricle is severely dilated, RV systolic function is severely reduced, right atrium is severely dilated. Right ventricular systolic pressure greater than 60 mmHg. Ejection fraction 65 to 70%. Flattened septum consistent with right pressure/volume overload. 08/22 CTA Chest: No central or lobar PE, prior Rt sided filling defects in prior CTA were artifactual. Concerning for infectious process. On Lasix and Demadex per pulmonology. Titrate potassium supplement, switched iv lasix to home PO dose of lasix 08/21. Currently on 5 L nasal cannula oxygen, patient states that she uses 3 to 4 L at home, patient is short of breath with minimal activity. PT/OT when able. DC heparin drip, continue cefdinir to complete antibiotic course for pneumonia as well as CTA chest is concerning for infectious process. Gentle NSS to prevent EMIR/had CTA chest done today (3rd time this admission). Likely demand ischemia: Elevated troponin at admission, no chest pain, likely secondary to acute and chronic respiratory failure. Echo reviewed. Continue home cardiac medications. Initially metoprolol was held considering acute rt heart strain, now that it is deemed more likely chronic Rt heart dilatation, metoprolol resumed 08/20, uptitrate as BP tolerates. Mild hyponatremia:Appears chronic, admitting sodium of 130 which appears to be her baseline. Stable Na level. Monitor as needed. UTI: Admitting urine culture positive for E. coli, received antibiotic on August 17 and , put her back on cefdinir starting August 20 to complete the antibiotic course. Acute kidney injury:Creatinine of 1.45 at presentation, likely prerenal. Resolved. Diarrhea: At presentation, r/o c diff, recent hospitalization. Stool PCR negative. Diarrhea resolved. Full Code Heparin Drip Admission and Anticipated Discharge Date Admission Date: August 17, 2022 Subjective Patient seen and examined at bedside as a follow-up of acute on chronic respiratory failure complicated by interstitial lung disease, pulmonary hypertension, cor pulmonale, questionable pulmonary embolism. Patient was sitting up semiupright in bed, on 5 L nasal cannula oxygen, reports feeling better/still weak, reports feeling short of breath with minimal exertion but reports improving activity w/ pt/ot, reports eating okay, moving bowels ok, denies any chest pain/headache/dizziness/sore throat/cough/belly pain/other review of symptoms. Physical Exam Physical Exam: GENERAL: Alert and oriented x3. NAD, on 5L NC O2. Appears weak. HEENT: No pallor, no icterus. Pupils equal, round and reactive to light. Oral mucosa moist. NECK: No JVD, no neck masses. HEART: S1 and S2 heard. regular rate and rhythm. No murmur, no gallop. RESPIRATORY SYSTEM: Normal AP diameter. No accessory muscle use. No wheezing, fine crackles mid and basal b/l. sob w/ conversation noted towards the end -- noted earlier has improved ABDOMEN: Soft, bowel sounds present, nontender, no distention. CENTRAL NERVOUS SYSTEM: No facial droop. Speech is clear. Obeys simple commands. Moves extremities. EXTREMITIES: trace ble edema, no erythema seen. Results & Data Results & Data ([facility]) Vital Signs (Past 12 Hours) Vital Signs Temp Pulse Resp BP Pulse Ox O2 Del Method O2 Flow Rate 08/22/22 14:11 Nasal Cannula 5 08/22/22 11:39 36.8 C 74 18 96/68 L 92 Nasal Cannula 5 08/22/22 07:33 36.4 C L 79 20 104/73 97 Nasal Cannula 5
[2022-08-22] MEDS ORDERED: HEPARIN STOP ORDER ONE (16:00)
[2022-08-22] MEDS: SENNA 8.6 MG TAB PO SCH (21:35)
[2022-08-23] MEDS: LEVOTHYROXINE SODIUM 88 MCG TABLET PO SCH (06:14)
[2022-08-23 07:01] LABS: BUN Creatinine Ratio 30.4 (10-20); Calcium 8.9 mg/dl (8.5-10.1); Creatinine Clr Calc Pharmacy 95.7 ml/min; Est GFR (African American) 113.6 ml/min; Magnesium 1.7 mg/dl (1.7-2.4); Potassium 3.6 mmol/L (3.5-5.1)
[2022-08-23] MEDS: INSULIN ASPART PER UNIT SC SCH ×4 (07:58→21:44)
[2022-08-23] MEDS: LANTUS PER UNIT CHARGE SQ SCH (07:58)
[2022-08-23] MEDS: FLUTICASONE PROPIONATE NA SPR 16 GM BTL SCH ×2 (08:03→21:31)
[2022-08-23] MEDS: CITALOPRAM 20 MG TAB PO SCH (08:03)
[2022-08-23] MEDS: ADVANCED PROBIOTIC 1250 MG CAPSULE PO SCH (08:03)
[2022-08-23] MEDS: CYANOCOBALAMIN (B-12) 500 MCG TABLET PO SCH (08:03)
[2022-08-23] MEDS: FUROSEMIDE 80 MG TAB PO SCH ×2 (08:04→16:49)
[2022-08-23] MEDS: MAGNESIUM OXIDE 400 MG TAB PO SCH ×2 (08:04→21:40)
[2022-08-23] MEDS: METOPROLOL TARTRATE 25 MG TAB PO SCH ×2 (08:04→21:34)
[2022-08-23] MEDS: CETIRIZINE HCL 10 MG TABLET PO SCH (08:04)
[2022-08-23] MEDS: predniSONE 10 MG TABLET PO SCH (08:04)
[2022-08-23] MEDS: acetaZOLAMIDE 250 MG TAB PO SCH ×2 (08:04→16:49)
[2022-08-23] MEDS: CEFDINIR 300 MG CAP PO SCH ×2 (08:05→21:32)
[2022-08-23] MEDS: BENZONATATE 100 MG CAPSULE PO PRN ×2 (08:09→16:53)
[2022-08-23] MEDS: POTASSIUM CHLORIDE CRTAB 20 MEQ TABCR PO SCH ×2 (08:09→21:40)
--- NOTE | 2022-08-23 10:02 | Pharmacy Report ---
Pharmacy Glycemic Short Note 2 - Date of Service August 23, 2022 - Glycemic Short BSG Results (Last 24 hours): 08/22/22 08/22/22 08/22/22 11:24 16:25 20:11 Glucose POC Glucose 232 H 146 H 179 H 08/23/22 08/23/22 06:00 07:18 Glucose 85 POC Glucose 93 OUTPATIENT ANTIDIABETIC REGIMEN: * Lantus 10 units SQ daily * Glipizide 10mg PO daily * Metformin 2gm PO daily * HbA1C: 12.3% (07/24/22) ASSESSMENT: 08/23/22: * Pt has been relatively well-controlled with 10 units of basal insulin daily. Fasting BSGs have been reasonable. * Pt typically is having ~1 elevated BSG daily, with the others looking reasonable. Novolog parameters have been adjusted. No further adjustments indicated today. * Pt continues to receive prednisone daily. 08/19 * Pt is a 57 YOF admitted with acute on chronic respiratory failure- questionable PE. History of DM2 on insulin and PO medications at home. Pharmacy consulted to assist with glycemic management. * BSGs [phone]/dL the last 24h. Fasting is within goal range at 114 (102mg/dL yesterday). Patient received 8 units of basal and 9 units of bolus insulin yesterday. * Tolerating a diet, on prednisone 10mg PO daily, and a heparin drip (in D5W). * Plan to continue Lantus 8 units daily given well controlled fasting BSGs. Novolog tightened to 45/15 at dinner/HS and 30/10 with breakfast and lunch given higher BSGs earlier in the day followed by significant drop at night. PLAN FOR INPATIENT GLYCEMIC CONTROL: * Hold outpatient oral diabetes medications * Basal insulin * Lantus 10 units SQ daily * Bolus insulin * NovoLog per scale ACHS or Q6hrs while NPO * Goal Range: Low 110 mg/dL - High 140 mg/dL * Correction Factor: 40 mg/dL/unit * Nutritional / Prandial insulin per carb ratio of 1 unit per 7 grams CHO consumed
[2022-08-23] MEDS: LEVALBUTEROL HCL 0.63 MG/3 ML NEB INH PRN (10:25)
--- NOTE | 2022-08-23 11:37 | Pulmonology Progress Note ---
Date of Service August 23, 2022 Assessment & Plan (1) Acute and chronic respiratory failure with hypoxia: Plan: * Hypoxia/Pulmonary Hypertension: * Continues to utilize 4-5L NC which is near her baseline. * Continue w/ home dosing of Lasix/Diamox. * Continue fluid restrictions. * Supplemental O2 as needed. * Encouraged utilization of CPAP/BiPAP which she declines. * She can followup with our clinic in the outpatient setting. * Will need outpatient PFTs at some point. * May benefit from pulmonary HTN specialist at some point in the outpatient. * Pulmonary Embolism: * Imaging likely artifactual given prior imaging and degree of pulm htn. * Remains off Heparin or anticoagulation at this point. At this point, the patient appears back to her baseline from a pulmonary standpoint. We will sign off on the patient at this point. Please feel free to reach out to our service for any changes in patient status. (2) Interstitial lung disease: (3) Volume overload: (4) Pulmonary embolism: Acute cor pulmonale presence: unspecified Chronicity: acute Pulmonary embolism type: other Qualified Code(s): I26.99 - Other pulmonary embolism without acute cor pulmonale Admission and Anticipated Discharge Date Admission Date: August 17, 2022 Subjective Patient seen and examined at bedside as a follow-up of acute on chronic respiratory failure complicated by interstitial lung disease, pulmonary hyperten bobby, cor pulmonale, questionable pulmonary embolism. Patient is sitting upright in bed after moving from her bedside chair. She is utilizing 4 to 5 L nasal cannula. She reports that her breathing still feels poor and does express shortness of breath with minimal exertion. She appears discouraged with her breathing and repeat hospitalizations to this point. Hopefully be discharged today and possibly with a potential for rehab to help with her strength and breathing. Review of Systems Review of Systems: A complete 6 point review of systems was reviewed with the patient with pertinent positives and negatives as per history of present illness. All else were negative. Physical Exam Physical Exam: VITAL SIGNS - Vital signs and nursing notes were reviewed. GENERAL - 57-year-old female appearing her stated age. Communicates well with provider and answers questions appropriately. LUNGS - Chest wall symmetric without accessory muscle use, intercostals retractions, or central cyanosis. Normal vesicular breath sounds B/L. With persistent bibasilar rales noted. CARDIAC - RRR with S1/S2. No murmur, rubs, or gallops appreciated. ABDOMEN - Abdominal contour obese without pulsations or visible masses. BS normoactive all four quadrants. No tenderness, palpable masses, hepatosplenomegaly, or ascites noted. EXTREMITIES - No clubbing or peripheral cyanosis. Moderate pretibial edema improved from prior exams. +3/5 radial and dorsalis pedis pulses palpated throughout. +5/5 strength noted in UE/LE bilaterally. Results & Data Results & Data ([facility]) Vital Signs (Past 12 Hours) Vital Signs Temp Pulse Pulse Resp BP Pulse Ox O2 Del Method 08/23/22 10:25 76 20 94 Nasal Cannula 08/23/22 08:00 Nasal Cannula 08/23/22 08:00 76 08/23/22 07:10 36.6 C 73 16 97/67 L 95 Nasal Cannula 08/23/22 00:00 82 08/23/22 02:53 36.6 C 77 18 91/65 L 91 Nasal Cannula O2 Flow Rate 08/23/22 10:25 4 08/23/22 08:00 5 08/23/22 08:00 08/23/22 07:10 5 08/23/22 00:00 08/23/22 02:53 PG Care Time/CCT Total # of Minutes Spent Total Time Spent with Patient: Total time spent is greater than 50% in coordination of care (as documented) at patient's floor/unit and/or counseling patient: Coding Level of Care Code 57065 SUB INP/OBS CARE 3/50MIN Diagnoses Acute and chronic respiratory failure with hypoxia J96.21 Interstitial lung disease J84.9 Volume overload E87.70 Pulmonary embolism I26.99 Acute cor pulmonale presence: unspecified Chronicity: acute Pulmonary embolism type: other Time Spent (min) 32
--- NOTE | 2022-08-23 14:19 | Hospitalist Progress Note ---
Date of Service August 23, 2022 Assessment & Plan (1) Acute and chronic respiratory failure with hypoxia: Plan 57-year-old lady with PMH of T2DM, chronic hypoxemic respiratory failure on 3 L oxygen at home, HLD, hypothyroidism, hyponatremia, ILD, hypertension, pulmonary hypertension, morbid obesity, immunosuppression due to chronic steroid use presented to the ED/3 with complaint of acute trouble breathing. Patient had COVID in April 2021 complicated with interstitial lung disease. She is being managed for the following: Acute on chronic respiratory failure Interstitial lung disease Pulmonary hypertension/cor pulmonale Possible Pulmonary embolism Possible pneumonia Patient presents with 2-day history of worsening shortness of breath, patient has a history of COVID-19 and interstitial lung disease. Admitting WBC WNL and viral panel negative. Admitting troponin and BNP elevated. Patient with no chest pain at admission. 08/16 and 08/17 (repeat) CTA Chest : Mixing artifact vs PE on Rt side. PAH w/ dilatation of Rt heart chamber, and Rt heart dysfunction noted. 4.5 x 2.2 x 1.7 cm groundglass opacity within the superior segment of the right lower lobe noted; follow up Chest CT in 3 month is recommended to ensure resolution. 08/17 BLE doppler: no DVT. 08/17 ECHO: Right ventricle is severely dilated, RV systolic function is severely reduced, right atrium is severely dilated. Right ventricular systolic pressure greater than 60 mmHg. Ejection fraction 65 to 70%. Flattened septum consistent with right pressure/volume overload. 08/22 CTA Chest: No central or lobar PE, prior Rt sided filling defects in prior CTA were artifactual. Concerning for infectious process. On Lasix and Demadex per pulmonology. Titrate potassium supplement, switched iv lasix to home PO dose of lasix 08/21. Currently on 5 L nasal cannula oxygen, patient states that she uses 3 to 4 L at home, patient is short of breath with minimal activity. PT/OT when able. DC'd heparin drip 08/22, continue cefdinir to complete antibiotic course for pneumonia as well as 08/22 CTA chest is concerning for infectious process. Pt will likely need transition to rehab, medically optimized otherwise. Follow up w/ Pulm upon DC. PFT as OP. Likely demand ischemia: Elevated troponin at admission, no chest pain, likely secondary to acute and chronic respiratory failure. Echo reviewed. Continue home cardiac medications. Initially metoprolol was held considering acute rt heart strain, now that it is deemed more likely chronic Rt heart dilatation, metoprolol resumed 08/20, uptitrate as BP tolerates. Mild hyponatremia:Appears chronic, admitting sodium of 130 which appears to be her baseline. Stable Na level. Monitor as needed. UTI: Admitting urine culture positive for E. coli, received antibiotic on August 17 and , put her back on cefdinir starting August 20 to complete the antibiotic course. Acute kidney injury:Creatinine of 1.45 at presentation, likely prerenal. Resolved. Diarrhea: At presentation, r/o c diff, recent hospitalization. Stool PCR negative. Diarrhea resolved. Full Code Heparin GA Admission and Anticipated Discharge Date Admission Date: August 17, 2022 Subjective Patient seen and examined at bedside as a follow-up of acute on chronic respiratory failure complicated by interstitial lung disease, pulmonary hypertension, cor pulmonale, questionable pulmonary embolism. Patient is sitting upright in chair. She is utilizing 5 L nasal cannula. reports feeling better though still weak, reports feeling short of breath with minimal exertion but reports improving activity w/ pt/ot, reports eating okay, moving bowels ok, denies any chest pain/headache/dizziness/sore throat/cough/belly pain/other review of symptoms. Physical Exam Physical Exam: GENERAL: Alert and oriented x3. NAD, on 5L NC O2. Appears weak. HEENT: No pallor, no icterus. Pupils equal, round and reactive to light. Oral mucosa moist. NECK: No JVD, no neck masses. HEART: S1 and S2 heard. regular rate and rhythm. No murmur, no gallop. RESPIRATORY SYSTEM: Normal AP diameter. No accessory muscle use. No wheezing, fine crackles mid and basal b/l. sob w/ conversation noted towards the end -- noted earlier has improved ABDOMEN: Soft, bowel sounds present, nontender, no distention. CENTRAL NERVOUS SYSTEM: No facial droop. Speech is clear. Obeys simple commands. Moves extremities. EXTREMITIES: trace ble edema, no erythema seen. Results & Data Results & Data ([facility]) Vital Signs (Past 12 Hours) Vital Signs Temp Pulse Pulse Resp BP Pulse Ox O2 Del Method 08/23/22 12:07 36.4 C L 75 14 92/70 L 87 L Nasal Cannula 08/23/22 10:25 76 20 94 Nasal Cannula 08/23/22 08:00 Nasal Cannula 08/23/22 08:00 76 08/23/22 07:10 36.6 C 73 16 97/67 L 95 Nasal Cannula 08/23/22 02:53 36.6 C 77 18 91/65 L 91 Nasal Cannula O2 Flow Rate 08/23/22 12:07 4 08/23/22 10:25 4 08/23/22 08:00 5 08/23/22 08:00 08/23/22 07:10 5 08/23/22 02:53
[2022-08-23] MEDS: HEPARIN SOD 5,000 UNIT/0.5 ML VIAL SQ SCH (21:32)
[2022-08-23] MEDS: SENNA 8.6 MG TAB PO SCH (21:35)
[2022-08-24] MEDS: LEVOTHYROXINE SODIUM 88 MCG TABLET PO SCH (05:58)
[2022-08-24 07:09] LABS: BUN Creatinine Ratio 33.8 (10-20); Calcium 8.9 mg/dl (8.5-10.1); Creatinine Clr Calc Pharmacy 97.5 ml/min; Est GFR (African American) 114.1 ml/min; Est GFR (Non-African American) 98.5 ml/min; Magnesium 1.7 mg/dl (1.7-2.4); Potassium 3.7 mmol/L (3.5-5.1)
[2022-08-24] MEDS: CETIRIZINE HCL 10 MG TABLET PO SCH (08:49)
[2022-08-24] MEDS: CYANOCOBALAMIN (B-12) 500 MCG TABLET PO SCH (08:49)
[2022-08-24] MEDS: acetaZOLAMIDE 250 MG TAB PO SCH ×2 (08:49→16:31)
[2022-08-24] MEDS: ROSUVASTATIN CALCIUM 5 MG TAB PO SCH (08:49)
[2022-08-24] MEDS: ADVANCED PROBIOTIC 1250 MG CAPSULE PO SCH (08:49)
[2022-08-24] MEDS: CITALOPRAM 20 MG TAB PO SCH (08:49)
[2022-08-24] MEDS: predniSONE 10 MG TABLET PO SCH (08:49)
[2022-08-24] MEDS: FUROSEMIDE 80 MG TAB PO SCH ×2 (08:49→16:31)
[2022-08-24] MEDS: MAGNESIUM OXIDE 400 MG TAB PO SCH ×2 (08:50→20:35)
[2022-08-24] MEDS: METOPROLOL TARTRATE 25 MG TAB PO SCH ×2 (08:50→20:35)
[2022-08-24] MEDS: BENZONATATE 100 MG CAPSULE PO PRN ×2 (08:50→16:36)
[2022-08-24] MEDS: FLUTICASONE PROPIONATE NA SPR 16 GM BTL SCH ×2 (08:50→20:34)
[2022-08-24] MEDS: HEPARIN SOD 5,000 UNIT/0.5 ML VIAL SQ SCH ×2 (08:51→20:36)
[2022-08-24] MEDS: INSULIN ASPART PER UNIT SC SCH ×4 (08:54→20:32)
[2022-08-24] MEDS: POTASSIUM CHLORIDE CRTAB 20 MEQ TABCR PO SCH ×2 (08:56→20:39)
[2022-08-24] MEDS ORDERED: LANTUS PER UNIT CHARGE SQ SCH (09:00)
--- NOTE | 2022-08-24 12:52 | Pharmacy Report ---
Pharmacy Glycemic Short Note 2 - Date of Service August 24, 2022 - Glycemic Short BSG Results (Last 24 hours): 08/23/22 08/23/22 08/24/22 16:38 20:11 06:03 Glucose 79 POC Glucose 219 H 149 H 08/24/22 08/24/22 07:12 11:35 Glucose POC Glucose 82 181 H OUTPATIENT ANTIDIABETIC REGIMEN: * Lantus 10 units SQ daily * Glipizide 10mg PO daily * Metformin 2gm PO daily * HbA1C: 12.3% (07/24/22) ASSESSMENT: 08/24/22: * Fasting BSG below goal x2 days, so Lantus dose was reduced slightly this morning. * Novolog adjusted to provide additional carb coverage for breakfast and lunch. Pt tends to be hyperglycemic pre-lunch and pre-dinner (which makes sense with AM prednisone administration). * No additional changes at this time. 08/23 * Pt has been relatively well-controlled with 10 units of basal insulin daily. Fasting BSGs have been reasonable. * Pt typically is having ~1 elevated BSG daily, with the others looking reasonable. Novolog parameters have been adjusted. No further adjustments indicated today. * Pt continues to receive prednisone daily. 08/19 * Pt is a 57 YOF admitted with acute on chronic respiratory failure- questionable PE. History of DM2 on insulin and PO medications at home. Pharmacy consulted to assist with glycemic management. * BSGs [phone]/dL the last 24h. Fasting is within goal range at 114 (102mg/dL yesterday). Patient received 8 units of basal and 9 units of bolus insulin yesterday. * Tolerating a diet, on prednisone 10mg PO daily, and a heparin drip (in D5W). * Plan to continue Lantus 8 units daily given well controlled fasting BSGs. Novolog tightened to 45/15 at dinner/HS and 30/10 with breakfast and lunch given higher BSGs earlier in the day followed by significant drop at night. PLAN FOR INPATIENT GLYCEMIC CONTROL: * Hold outpatient oral diabetes medications * Basal insulin * Lantus 8 units SQ daily * Bolus insulin * NovoLog per scale ACHS or Q6hrs while NPO * Goal Range: Low 110 mg/dL - High 140 mg/dL * Correction Factor: 40 mg/dL/unit * Nutritional / Prandial insulin per carb ratio of 1 unit per 5 grams CHO consumed at breakfast and lunch, 1 unit per 7 grams CHO consumed at dinner and HS
--- NOTE | 2022-08-24 14:44 | Pulmonology Progress Note ---
Date of Service August 24, 2022 Assessment & Plan (1) Pulmonary hypertension: (2) Hypoxia: (3) Interstitial lung disease: (4) Acute and chronic respiratory failure: Plan Impression: 57-year-old female with ILD secondary to COVID-19 pneumonia requiring escalating home O2 and ongoing medical management. Severe pulmonary hypertension, likely secondary Recommendations: 1. Post COVID fibrotic lung disease. No role for additional immunosuppression. Patient is currently on prednisone 10 mg a day. Would recommend continuing to taper over the next 2 to 3 months until its off. No role for additional antifibrotic therapies. 2. Pulmonary hypertension: Suspect WHO class II, and 3, [place] [employer] Association class 2-3. Optimization of volume status with continued diuresis. Once the patient is established at a euvolemic state, could consider repeating echocardiogram and potentially consideration for right heart catheterization at that point time. This would likely need to be done at a pulmonary hypertension center of excellence ([place] or [facility] May require outpatient V/Q scan as well. Repeat sleep study as an outpatient recommended as noted below. 3. Hypoxemic hypercarbic respiratory failure: Continue supplemental oxygen titrated to keep oxygen saturations at or about 90% given potential pulmonary hypoxemic vasoconstriction. The patient is slightly hypercarbic and may have a concomitant component of obesity hypoventilation syndrome/sleep disordered breathing. She had refused CPAP in the past. Repeat outpatient polysomnography when the patient is clinically stable should be conducted. 4. Obesity: weight loss recommended. Patient appears to be optimized at this point time and we are pending of bed availability for discharge to rehab. The remainder of her evaluation can be conducted as an outpatient with Dr. Almanzar. Pulmonary will sign off at this point time. Feel free to contact us with additional questions or concerns Admission and Anticipated Discharge Date Admission Date: August 17, 2022 Subjective Patient seen and examined. She is lying in bed at about 20 to 30 degrees. She states she continues to make some improvement. Her oxygen is at baseline. She has not noted any significant lower extremity edema. She will occasionally cough and expectorate some "foamy" phlegm. She is not having any chest pain or palpitations. No syncope or presyncope. The patient states that she is awaiting placement at custodial facility/rehab which I think is appropriate. Review of Systems Review of Systems: All systems reviewed & are unremarkable except as noted in Subjective Physical Exam Physical Exam: VITAL SIGNS - Vital signs and nursing notes were reviewed. GENERAL - 57-year-old female appearing her stated age. Communicates well with provider and answers questions appropriately. LUNGS - Chest wall symmetric without accessory muscle use, intercostals retractions, or central cyanosis. Normal vesicular breath sounds CTA B/L. No wheezes, rales, or rhonchi appreciated. CARDIAC - RRR with S1/S2. No murmur, rubs, or gallops appreciated. ABDOMEN - Abdominal contour obese without pulsations or visible masses. BS normoactive all four quadrants. No tenderness, palpable masses, hepatosplenomegaly, or ascites noted. EXTREMITIES - No clubbing or peripheral cyanosis. Moderate pretibial edema improved from prior exams. +3/5 radial and dorsalis pedis pulses palpated throughout. +5/5 strength noted in UE/LE bilaterally. Results & Data Results & Data ([facility]) Vital Signs (Past 12 Hours) Vital Signs Temp Pulse Pulse Resp BP Pulse Ox O2 Del Method 08/24/22 10:01 36.5 C 83 19 91/58 L 93 Nasal Cannula 08/24/22 09:00 Room Air 08/24/22 09:00 74 08/24/22 07:08 36.4 C L 75 17 93/67 L 95 Nasal Cannula 08/24/22 03:04 36.8 C 72 18 106/75 90 Nasal Cannula O2 Flow Rate 08/24/22 10:01 5 08/24/22 09:00 08/24/22 09:00 08/24/22 07:08 5 08/24/22 03:04 Laboratory Results 08/19/22 04:56 08/24/22 06:03 Diagnostic Findings No new imaging PG Care Time/CCT Total # of Minutes Spent Total Time Spent with Patient: Total time spent is greater than 50% in coordination of care (as documented) at patient's floor/unit and/or counseling patient: Coding Level of Care Code 52691 SUB INP/OBS CARE 2/35MIN Diagnoses Pulmonary hypertension I27.20 Hypoxia R09.02 Interstitial lung disease J84.9 Acute and chronic respiratory failure J96.20
--- NOTE | 2022-08-24 16:14 | Hospitalist Progress Note ---
Date of Service August 24, 2022 Assessment & Plan (1) Acute and chronic respiratory failure with hypoxia: Plan 57-year-old lady with PMH of T2DM, chronic hypoxemic respiratory failure on 3 L oxygen at home, HLD, hypothyroidism, hyponatremia, ILD, hypertension, pulmonary hypertension, morbid obesity, immunosuppression due to chronic steroid use presented to the ED/3 with complaint of acute trouble breathing. Patient had COVID in April 2021 complicated with interstitial lung disease. She is being managed for the following: Acute on chronic respiratory failure Interstitial lung disease: taper prednisone over next 2-3 months until its is off. Pulmonary hypertension/cor pulmonale: f/u Pul [facility]N center of excellence, may require sleep study, v/q scan, right heart cath. Possible Pulmonary embolism Possible pneumonia Patient presents with 2-day history of worsening shortness of breath, patient has a history of COVID-19 and interstitial lung disease. Admitting WBC WNL and viral panel negative. Admitting troponin and BNP elevated. Patient with no chest pain at admission. 08/16 and 08/17 (repeat) CTA Chest : Mixing artifact vs PE on Rt side. PAH w/ dilatation of Rt heart chamber, and Rt heart dysfunction noted. 4.5 x 2.2 x 1.7 cm groundglass opacity within the superior segment of the right lower lobe noted; follow up Chest CT in 3 month is recommended to ensure resolution. 08/17 BLE doppler: no DVT. 08/17 ECHO: Right ventricle is severely dilated, RV systolic function is severely reduced, right atrium is severely dilated. Right ventricular systolic pressure greater than 60 mmHg. Ejection fraction 65 to 70%. Flattened septum consistent with right pressure/volume overload. 08/22 CTA Chest: No central or lobar PE, prior Rt sided filling defects in prior CTA were artifactual. Concerning for infectious process. On Lasix and Demadex per pulmonology. Titrate potassium supplement, switched iv lasix to home PO dose of lasix 08/21. Currently on 5 L nasal cannula oxygen, patient states that she uses 3 to 4 L at home, patient is short of breath with minimal activity. PT/OT when able. DC'd heparin drip 08/22, continue cefdinir to complete antibiotic course for pneumonia as well as 08/22 CTA chest is concerning for infectious process. Pt will likely need transition to rehab, medically optimized otherwise. Follow up w/ Pulm upon DC. PFT as OP. Likely demand ischemia: Elevated troponin at admission, no chest pain, likely secondary to acute and chronic respiratory failure. Echo reviewed. Continue home cardiac medications. Initially metoprolol was held considering acute rt heart strain, now that it is deemed more likely chronic Rt heart dilatation, metoprolol resumed 08/20, uptitrate as BP tolerates. Mild hyponatremia:Appears chronic, admitting sodium of 130 which appears to be her baseline. Stable Na level. Monitor as needed. UTI: Admitting urine culture positive for E. coli, received antibiotic on August 17 and , put her back on cefdinir starting August 20 to complete the antibiotic course. Acute kidney injury:Creatinine of 1.45 at presentation, likely prerenal. Resolved. Diarrhea: At presentation, r/o c diff, recent hospitalization. Stool PCR negative. Diarrhea resolved. Full Code Heparin SC Dispo: awaiting placement. Admission and Anticipated Discharge Date Admission Date: August 17, 2022 Subjective Patient seen and examined at bedside as a follow-up of acute on chronic respiratory failure complicated by interstitial lung disease, pulmonary hyperten bobby, cor pulmonale, questionable pulmonary embolism. Patient is sitting upright in chair. She is utilizing 5 L nasal cannula. reports feeling better though still weak, reports feeling short of breath with minimal exertion but reports improving activity w/ pt/ot, reports eating okay, moving bowels ok, no diarrhea, denies any chest pain/headache/dizziness/sore throat/cough/belly pain/other review of symptoms. Physical Exam Physical Exam: GENERAL: Alert and oriented x3. NAD, on 5L NC O2. Appears weak. HEENT: No pallor, no icterus. Pupils equal, round and reactive to light. Oral mucosa moist. NECK: No JVD, no neck masses. HEART: S1 and S2 heard. regular rate and rhythm. No murmur, no gallop. RESPIRATORY SYSTEM: Normal AP diameter. No accessory muscle use. No wheezing, fine crackles mid and basal b/l. sob w/ conversation noted towards the end -- noted earlier has improved ABDOMEN: Soft, bowel sounds present, nontender, no distention. CENTRAL NERVOUS SYSTEM: No facial droop. Speech is clear. Obeys simple commands. Moves extremities. EXTREMITIES: trace ble edema, no erythema seen. Results & Data Results & Data ([facility]) Vital Signs (Past 12 Hours) Vital Signs Temp Pulse Pulse Resp BP Pulse Ox O2 Del Method 08/24/22 15:45 82 08/24/22 15:16 36.4 C L 81 17 104/74 91 Nasal Cannula 08/24/22 10:01 36.5 C 83 19 91/58 L 93 Nasal Cannula 08/24/22 09:00 Room Air 08/24/22 09:00 74 08/24/22 07:08 36.4 C L 75 17 93/67 L 95 Nasal Cannula O2 Flow Rate 08/24/22 15:45 08/24/22 15:16 5 08/24/22 10:01 5 08/24/22 09:00 08/24/22 09:00 08/24/22 07:08 5
[2022-08-24] MEDS: SENNA 8.6 MG TAB PO SCH (20:36)
[2022-08-25] MEDS: LEVOTHYROXINE SODIUM 88 MCG TABLET PO SCH (06:29)
[2022-08-25] MEDS: FLUTICASONE PROPIONATE NA SPR 16 GM BTL SCH ×2 (07:34→20:36)
[2022-08-25] MEDS: MAGNESIUM OXIDE 400 MG TAB PO SCH ×2 (07:34→22:17)
[2022-08-25] MEDS: ADVANCED PROBIOTIC 1250 MG CAPSULE PO SCH (07:35)
[2022-08-25] MEDS: CETIRIZINE HCL 10 MG TABLET PO SCH (07:35)
[2022-08-25] MEDS: predniSONE 10 MG TABLET PO SCH (07:36)
[2022-08-25] MEDS: CITALOPRAM 20 MG TAB PO SCH (07:36)
[2022-08-25] MEDS: METOPROLOL TARTRATE 25 MG TAB PO SCH ×2 (07:36→22:18)
[2022-08-25] MEDS: acetaZOLAMIDE 250 MG TAB PO SCH ×2 (07:37→16:40)
[2022-08-25] MEDS: FUROSEMIDE 80 MG TAB PO SCH ×2 (07:37→16:40)
[2022-08-25] MEDS: CYANOCOBALAMIN (B-12) 500 MCG TABLET PO SCH (07:37)
[2022-08-25] MEDS: HEPARIN SOD 5,000 UNIT/0.5 ML VIAL SQ SCH ×2 (07:38→22:16)
[2022-08-25] MEDS: INSULIN ASPART PER UNIT SC SCH ×4 (07:42→20:36)
[2022-08-25] MEDS: BENZONATATE 100 MG CAPSULE PO PRN ×2 (07:42→22:27)
[2022-08-25] MEDS: POTASSIUM CHLORIDE CRTAB 20 MEQ TABCR PO SCH ×2 (07:45→22:20)
[2022-08-25] MEDS ORDERED: LANTUS PER UNIT CHARGE SQ SCH (09:00)
--- NOTE | 2022-08-25 17:12 | Hospitalist Progress Note ---
Date of Service August 25, 2022 Assessment & Plan (1) Acute and chronic respiratory failure with hypoxia: Plan 57-year-old lady with PMH of T2DM, chronic hypoxemic respiratory failure on 3 L oxygen at home, HLD, hypothyroidism, hyponatremia, ILD, hypertension, pulmonary hypertension, morbid obesity, immunosuppression due to chronic steroid use presented to the ED/3 with complaint of acute trouble breathing. Patient had COVID in April 2021 complicated with interstitial lung disease. She is being managed for the following: Acute on chronic respiratory failure Interstitial lung disease: taper prednisone over next 2-3 months until its is off. Pulmonary hypertension/cor pulmonale: f/u Pul [facility], may require sleep study, v/q scan, right heart cath. Possible Pulmonary embolism Possible pneumonia Patient presents with 2-day history of worsening shortness of breath, patient has a history of COVID-19 and interstitial lung disease. Admitting WBC WNL and viral panel negative. Admitting troponin and BNP elevated. Patient with no chest pain at admission. 08/16 and 08/17 (repeat) CTA Chest : Mixing artifact vs PE on Rt side. PAH w/ dilatation of Rt heart chamber, and Rt heart dysfunction noted. 4.5 x 2.2 x 1.7 cm groundglass opacity within the superior segment of the right lower lobe noted; follow up Chest CT in 3 month is recommended to ensure resolution. 08/17 BLE doppler: no DVT. 08/17 ECHO: Right ventricle is severely dilated, RV systolic function is severely reduced, right atrium is severely dilated. Right ventricular systolic pressure greater than 60 mmHg. Ejection fraction 65 to 70%. Flattened septum consistent with right pressure/volume overload. 08/22 CTA Chest: No central or lobar PE, prior Rt sided filling defects in prior CTA were artifactual. Concerning for infectious process. On Lasix and Demadex per pulmonology. Titrate potassium supplement, switched iv lasix to home PO dose of lasix 08/21. Currently on 5 L nasal cannula oxygen, patient states that she uses 3 to 4 L at home, patient is short of breath with minimal activity. PT/OT when able. DC'd heparin drip 08/22, s/p antibiotic course for pneumonia as well as 08/22 CTA chest is concerning for infectious process. Pt will likely need transition to rehab, medically optimized otherwise. Follow up w/ Pulm upon DC. PFT as OP. Likely demand ischemia: Elevated troponin at admission, no chest pain, likely secondary to acute and chronic respiratory failure. Echo reviewed. Continue home cardiac medications. Initially metoprolol was held considering acute rt heart strain, now that it is deemed more likely chronic Rt heart dilatation, metoprolol resumed 08/20, uptitrate as BP tolerates. HR has been under control. Mild hyponatremia:Appears chronic, admitting sodium of 130 which appears to be her baseline. Stable Na level. Monitor as needed. UTI: Admitting urine culture positive for E. coli, received antibiotic on August 17 and , put her back on cefdinir starting August 20 to complete the antibiotic course. Acute kidney injury:Creatinine of 1.45 at presentation, likely prerenal. Resolved. Diarrhea: At presentation, r/o c diff, recent hospitalization. Stool PCR negative. Diarrhea resolved. Full Code Heparin SC Dispo: awaiting placement. Admission and Anticipated Discharge Date Admission Date: August 17, 2022 Subjective Patient seen and examined at bedside as a follow-up of acute on chronic respiratory failure complicated by interstitial lung disease, pulmonary hypertension, cor pulmonale, questionable pulmonary embolism. Patient is sitting upright in chair. She is utilizing 5 L nasal cannula. reports making very slow progress with activity and ambulation, frustrated due to slow improvement, reports eating okay, moving bowels ok, no diarrhea, denies any chest pain/headache/dizziness/sore throat/cough/belly pain/other review of symptoms. Physical Exam Physical Exam: GENERAL: Alert and oriented x3. NAD, on 5L NC O2. Appears weak. HEENT: No pallor, no icterus. Pupils equal, round and reactive to light. Oral mucosa moist. NECK: No JVD, no neck masses. HEART: S1 and S2 heard. regular rate and rhythm. No murmur, no gallop. RESPIRATORY SYSTEM: Normal AP diameter. No accessory muscle use. No wheezing, fine crackles mid and basal b/l. ABDOMEN: Soft, bowel sounds present, nontender, no distention. CENTRAL NERVOUS SYSTEM: No facial droop. Speech is clear. Obeys simple commands. Moves extremities. EXTREMITIES: no edema, no erythema seen. Results & Data Results & Data ([facility]) Vital Signs (Past 12 Hours) Vital Signs Temp Pulse Pulse Resp BP Pulse Ox O2 Del Method 08/25/22 15:50 36.8 C 78 18 107/75 91 Nasal Cannula 08/25/22 08:00 Nasal Cannula 08/25/22 08:00 71 08/25/22 11:22 36.6 C 73 18 103/73 94 Nasal Cannula 08/25/22 07:57 36.5 C 75 18 109/77 95 Nasal Cannula O2 Flow Rate 08/25/22 15:50 6 08/25/22 08:00 6 08/25/22 08:00 08/25/22 11:22 6 08/25/22 07:57 6
[2022-08-25] MEDS: SENNA 8.6 MG TAB PO SCH (22:00)
[2022-08-26] MEDS: LEVOTHYROXINE SODIUM 88 MCG TABLET PO SCH (05:59)
[2022-08-26 07:32] LABS: BUN Creatinine Ratio 29.5 (10-20); Creatinine Clr Calc Pharmacy 75.1 ml/min; Est GFR (African American) 85.7 ml/min; Magnesium 1.7 mg/dl (1.7-2.4); Potassium 3.8 mmol/L (3.5-5.1)
--- NOTE | 2022-08-26 08:12 | Hospitalist Progress Note ---
Date of Service August 26, 2022 Assessment & Plan (1) Acute and chronic respiratory failure with hypoxia: Plan 57-year-old lady with PMH of T2DM, chronic hypoxemic respiratory failure on 3 L oxygen at home, HLD, hypothyroidism, hyponatremia, ILD, hypertension, pulmonary hypertension, morbid obesity, immunosuppression due to chronic steroid use presented to the ED/3 with complaint of acute trouble breathing. Patient had COVID in April 2021 complicated with interstitial lung disease. She is being managed for the following: Acute on chronic respiratory failure Interstitial lung disease: taper prednisone over next 2-3 months until its is off. Pulmonary hypertension/cor pulmonale: f/u [facility], may require sleep study, v/q scan, right heart cath. Possible Pulmonary embolism Possible pneumonia Patient presents with 2-day history of worsening shortness of breath, patient has a history of COVID-19 and interstitial lung disease. Admitting WBC WNL and viral panel negative. Admitting troponin and BNP elevated. Patient with no chest pain at admission. 08/16 and 08/17 (repeat) CTA Chest : Mixing artifact vs PE on Rt side. PAH w/ dilatation of Rt heart chamber, and Rt heart dysfunction noted. 4.5 x 2.2 x 1.7 cm groundglass opacity within the superior segment of the right lower lobe noted; follow up Chest CT in 3 month is recommended to ensure resolution. 08/17 BLE doppler: no DVT. 08/17 ECHO: Right ventricle is severely dilated, RV systolic function is severely reduced, right atrium is severely dilated. Right ventricular systolic pressure greater than 60 mmHg. Ejection fraction 65 to 70%. Flattened septum consistent with right pressure/volume overload. 08/22 CTA Chest: No central or lobar PE, prior Rt sided filling defects in prior CTA were artifactual. Concerning for infectious process. On Lasix and Demadex per pulmonology. Titrate potassium supplement, switched iv lasix to home PO dose of lasix 08/21. Currently on 5 L nasal cannula oxygen, patient states that she uses 3 to 4 L at home, patient is short of breath with minimal activity. PT/OT when able. DC'd heparin drip 08/22, s/p antibiotic course for pneumonia as well as 08/22 CTA chest is concerning for infectious process. Pt will likely need transition to rehab, medically optimized otherwise. Follow up w/ Pulm upon DC. PFT as OP. Likely demand ischemia: Elevated troponin at admission, no chest pain, likely secondary to acute and chronic respiratory failure. Echo reviewed. Continue home cardiac medications. Initially metoprolol was held considering acute rt heart strain, now that it is deemed more likely chronic Rt heart dilatation, metoprolol resumed 08/20, uptitrate as BP tolerates. HR has been under control. Mild hyponatremia:Appears chronic, admitting sodium of 130 which appears to be her baseline. Stable Na level. Monitor as needed. UTI: Admitting urine culture positive for E. coli, s/p atb course. Acute kidney injury:Creatinine of 1.45 at presentation, likely prerenal. Resolved. Diarrhea: At presentation, r/o c diff, recent hospitalization. Stool PCR negative. Diarrhea resolved. Full Code Heparin SC Dispo: awaiting placement. to med/surg. Admission and Anticipated Discharge Date Admission Date: August 17, 2022 Subjective Patient seen and examined at bedside as a follow-up of acute on chronic respiratory failure complicated by interstitial lung disease, pulmonary hypertension, cor pulmonale, questionable pulmonary embolism. Patient is sitting upright in chair. She is utilizing 5 L nasal cannula. reports making very slow progress with activity and ambulation, reports eating okay, moving bowels ok, no diarrhea, denies any chest p ain/headache/dizziness/sore throat/cough/belly pain/other review of symptoms. Physical Exam Physical Exam: GENERAL: Alert and oriented x3. NAD, on 5L NC O2. Appears weak. HEENT: No pallor, no icterus. Pupils equal, round and reactive to light. Oral mucosa moist. NECK: No JVD, no neck masses. HEART: S1 and S2 heard. regular rate and rhythm. No murmur, no gallop. RESPIRATORY SYSTEM: Normal AP diameter. No accessory muscle use. No wheezing, fine crackles mid and basal b/l. ABDOMEN: Soft, bowel sounds present, nontender, no distention. CENTRAL NERVOUS SYSTEM: No facial droop. Speech is clear. Obeys simple commands. Moves extremities. EXTREMITIES: no edema, no erythema seen. Results & Data Results & Data ([facility]) Vital Signs (Past 12 Hours) Vital Signs Temp Pulse Pulse Resp BP BP Pulse Ox 08/26/22 07:37 36.8 C 72 20 96/67 L 93 08/26/22 03:34 36.4 C L 66 20 112/71 96 08/25/22 23:09 78 08/25/22 22:50 36.6 C 79 20 102/70 91 O2 Del Method O2 Flow Rate 08/26/22 07:37 Nasal Cannula 5 08/26/22 03:34 Nasal Cannula 6 08/25/22 23:09 08/25/22 22:50 Nasal Cannula 6
[2022-08-26] MEDS ORDERED: ERGOCALCIFEROL 50,000 UNITS 1250 MCG CAP PO ONE (08:15)
[2022-08-26] MEDS: INSULIN ASPART PER UNIT SC SCH ×4 (08:16→20:17)
[2022-08-26] MEDS: predniSONE 10 MG TABLET PO SCH (08:17)
[2022-08-26] MEDS: METOPROLOL TARTRATE 25 MG TAB PO SCH ×2 (08:17→20:21)
[2022-08-26] MEDS: MAGNESIUM OXIDE 400 MG TAB PO SCH ×2 (08:17→20:18)
[2022-08-26] MEDS: CITALOPRAM 20 MG TAB PO SCH (08:17)
[2022-08-26] MEDS: CYANOCOBALAMIN (B-12) 500 MCG TABLET PO SCH (08:17)
[2022-08-26] MEDS: FLUTICASONE PROPIONATE NA SPR 16 GM BTL SCH ×2 (08:18→19:49)
[2022-08-26] MEDS: ADVANCED PROBIOTIC 1250 MG CAPSULE PO SCH (08:18)
[2022-08-26] MEDS: CETIRIZINE HCL 10 MG TABLET PO SCH (08:18)
[2022-08-26] MEDS: FUROSEMIDE 80 MG TAB PO SCH ×2 (08:18→17:19)
[2022-08-26] MEDS: acetaZOLAMIDE 250 MG TAB PO SCH ×2 (08:18→17:19)
[2022-08-26] MEDS: HEPARIN SOD 5,000 UNIT/0.5 ML VIAL SQ SCH ×2 (08:19→20:18)
[2022-08-26] MEDS ORDERED: LANTUS PER UNIT CHARGE SQ SCH (09:00)
[2022-08-26] MEDS: BENZONATATE 100 MG CAPSULE PO PRN ×2 (09:48→20:16)
[2022-08-26] MEDS: POTASSIUM CHLORIDE CRTAB 20 MEQ TABCR PO SCH ×2 (09:48→20:21)
--- NOTE | 2022-08-26 12:23 | Pharmacy Report ---
Pharmacy Glycemic Short Note 2 - Date of Service August 26, 2022 - Glycemic Short BSG Results (Last 24 hours): 08/25/22 08/25/22 08/26/22 16:07 20:22 06:52 Glucose 78 POC Glucose 187 H 94 08/26/22 08/26/22 07:10 11:14 Glucose POC Glucose 80 224 H OUTPATIENT ANTIDIABETIC REGIMEN: * Lantus 10 units SQ daily * Glipizide 10mg PO daily * Metformin 2gm PO daily * HbA1C: 12.3% (07/24/22) ASSESSMENT: 08/26/22: * Fasting BSG 80 mg/dL today, will continue with 5 units of lantus for now, may need further adjustment if further down trend * Patient with elevated lunch/dinner BSGs, carb ratio adjusted with breakfast, lunch- will further tighten tomorrow if trend continues * Continues on prednisone 10 mg daily 08/24/22: * Fasting BSG below goal x2 days, so Lantus dose was reduced slightly this morn ing. * Novolog adjusted to provide additional carb coverage for breakfast and lunch. Pt tends to be hyperglycemic pre-lunch and pre-dinner (which makes sense with AM prednisone administration). * No additional changes at this time. 08/23 * Pt has been relatively well-controlled with 10 units of basal insulin daily. Fasting BSGs have been reasonable. * Pt typically is having ~1 elevated BSG daily, with the others looking reasonable. Novolog parameters have been adjusted. No further adjustments indicated today. * Pt continues to receive prednisone daily. 08/19 * Pt is a 57 YOF admitted with acute on chronic respiratory failure- questionable PE. History of DM2 on insulin and PO medications at home. Pharmacy consulted to assist with glycemic management. * BSGs [phone]/dL the last 24h. Fasting is within goal range at 114 (102mg/dL yesterday). Patient received 8 units of basal and 9 units of bolus insulin yesterday. * Tolerating a diet, on prednisone 10mg PO daily, and a heparin drip (in D5W). * Plan to continue Lantus 8 units daily given well controlled fasting BSGs. Novolog tightened to 45/15 at dinner/HS and 30/10 with breakfast and lunch given higher BSGs earlier in the day followed by significant drop at night. PLAN FOR INPATIENT GLYCEMIC CONTROL: * Hold outpatient oral diabetes medications * Basal insulin * Lantus 5 units SQ daily * Bolus insulin * NovoLog per scale ACHS or Q6hrs while NPO * Goal Range: Low 110 mg/dL - High 140 mg/dL * Correction Factor: 35 mg/dL/unit with breakfast, lunch, 40 mg/dL/unit with dinner, HS * Nutritional / Prandial insulin per carb ratio of 1 unit per 4 grams CHO consumed at breakfast and lunch--> changing to 3.5 tomorrow 1 unit per 7 grams CHO consumed at dinner and HS
[2022-08-26] MEDS: SENNA 8.6 MG TAB PO SCH (19:49)
[2022-08-27] MEDS: LEVOTHYROXINE SODIUM 88 MCG TABLET PO SCH (06:18)
[2022-08-27] MEDS: FLUTICASONE PROPIONATE NA SPR 16 GM BTL SCH ×2 (08:56→20:29)
[2022-08-27] MEDS: BENZONATATE 100 MG CAPSULE PO PRN ×2 (08:56→18:26)
[2022-08-27] MEDS: HEPARIN SOD 5,000 UNIT/0.5 ML VIAL SQ SCH ×2 (08:56→20:32)
[2022-08-27] MEDS: METOPROLOL TARTRATE 25 MG TAB PO SCH ×2 (09:00→21:36)
[2022-08-27] MEDS: CITALOPRAM 20 MG TAB PO SCH (09:24)
[2022-08-27] MEDS: POTASSIUM CHLORIDE CRTAB 20 MEQ TABCR PO SCH ×2 (09:24→20:36)
[2022-08-27] MEDS: ADVANCED PROBIOTIC 1250 MG CAPSULE PO SCH (09:24)
[2022-08-27] MEDS: CETIRIZINE HCL 10 MG TABLET PO SCH (09:25)
[2022-08-27] MEDS: predniSONE 10 MG TABLET PO SCH (09:25)
[2022-08-27] MEDS: MAGNESIUM OXIDE 400 MG TAB PO SCH ×2 (09:25→20:33)
[2022-08-27] MEDS: CYANOCOBALAMIN (B-12) 500 MCG TABLET PO SCH (09:25)
[2022-08-27] MEDS: LANTUS PER UNIT CHARGE SQ SCH (09:33)
[2022-08-27] MEDS: INSULIN ASPART PER UNIT SC SCH ×4 (09:33→21:31)
[2022-08-27] MEDS: FUROSEMIDE 80 MG TAB PO SCH ×2 (11:06→18:21)
[2022-08-27] MEDS: acetaZOLAMIDE 250 MG TAB PO SCH ×2 (11:06→18:21)
--- NOTE | 2022-08-27 16:25 | Hospitalist Progress Note ---
Date of Service August 27, 2022 Assessment & Plan (1) Acute and chronic respiratory failure with hypoxia: Plan 57-year-old lady with PMH of T2DM, chronic hypoxemic respiratory failure on 3 L oxygen at home, HLD, hypothyroidism, hyponatremia, ILD, hypertension, pulmonary hypertension, morbid obesity, immunosuppression due to chronic steroid use presented to the ED/3 with complaint of acute trouble breathing. Patient had COVID in April 2021 complicated with interstitial lung disease. She is being managed for the following: Acute on chronic respiratory failure Interstitial lung disease: taper prednisone over next 2-3 months until it is off. Pulmonary hypertension/cor pulmonale: [facility], may require sleep study, v/q scan, right heart cath. Possible Pulmonary embolism Possible pneumonia Patient presents with 2-day history of worsening shortness of breath, patient has a history of COVID-19 and interstitial lung disease. Admitting WBC WNL and viral panel negative. Admitting troponin and BNP elevated. Patient with no chest pain at admission. 08/16 and 08/17 (repeat) CTA Chest : Mixing artifact vs PE on Rt side. PAH w/ dilatation of Rt heart chamber, and Rt heart dysfunction noted. 4.5 x 2.2 x 1.7 cm groundglass opacity within the superior segment of the right lower lobe noted; follow up Chest CT in 3 month is recommended to ensure resolution. 08/17 BLE doppler: no DVT. 08/17 ECHO: Right ventricle is severely dilated, RV systolic function is severely reduced, right atrium is severely dilated. Right ventricular systolic pressure greater than 60 mmHg. Ejection fraction 65 to 70%. Flattened septum consistent with right pressure/volume overload. 08/22 CTA Chest: No central or lobar PE, prior Rt sided filling defects in prior CTA were artifactual. Concerning for infectious process. On Lasix and Demadex per pulmonology. Titrate potassium supplement, switched iv lasix to home PO dose of lasix 08/21. Currently on 5 L nasal cannula oxygen, patient states that she uses 3 to 4 L at home, patient is short of breath with minimal activity. PT/OT when able. DC'd heparin drip 08/22, s/p antibiotic course for pneumonia as well as 08/22 CTA chest is concerning for infectious process. Pt will likely need transition to rehab, medically optimized otherwise. Follow up w/ Pulm upon DC. PFT as OP. Likely demand ischemia: Elevated troponin at admission, no chest pain, likely secondary to acute and chronic respiratory failure. Echo reviewed. Continue home cardiac medications. Initially metoprolol was held considering acute rt heart strain, now that it is deemed more likely chronic Rt heart dilatation, metoprolol resumed 08/20, uptitrate as BP tolerates. HR has been under control. Mild hyponatremia:Appears chronic, admitting sodium of 130 which appears to be her baseline. Stable Na level. Monitor as needed. UTI: Admitting urine culture positive for E. coli, s/p atb course. Acute kidney injury:Creatinine of 1.45 at presentation, likely prerenal. Resolved. Diarrhea: At presentation, r/o c diff, recent hospitalization. Stool PCR negative. Diarrhea resolved. Full Code Heparin SC Dispo: awaiting placement. med/surg. Admission and Anticipated Discharge Date Admission Date: August 17, 2022 Subjective Patient seen and examined at bedside as a follow-up of acute on chronic respiratory failure complicated by interstitial lung disease, pulmonary hypertension, cor pulmonale, questionable pulmonary embolism. Patient is sitting upright in chair. She is utilizing 5 L nasal cannula. reports making very slow progress with activity and ambulation, reports eating okay, moving bowels ok, no diarrhea, denies any chest pain /headache/dizziness/sore throat/cough/belly pain/other review of symptoms. Physical Exam Physical Exam: GENERAL: Alert and oriented x3. NAD, on 5L NC O2. Appears weak. HEENT: No pallor, no icterus. Pupils equal, round and reactive to light. Oral mucosa moist. NECK: No JVD, no neck masses. HEART: S1 and S2 heard. regular rate and rhythm. No murmur, no gallop. RESPIRATORY SYSTEM: Normal AP diameter. No accessory muscle use. No wheezing, fine crackles mid and basal b/l. ABDOMEN: Soft, bowel sounds present, nontender, no distention. CENTRAL NERVOUS SYSTEM: No facial droop. Speech is clear. Obeys simple commands. Moves extremities. EXTREMITIES: no edema, no erythema seen. Results & Data Results & Data ([facility]) Vital Signs (Past 12 Hours) Vital Signs Temp Pulse Resp BP BP Pulse Ox O2 Del Method 08/27/22 15:43 36.7 C 87 16 99/68 L 93 Nasal Cannula 08/27/22 11:05 107/78 08/27/22 08:54 94/70 L 08/27/22 07:40 Nasal Cannula 08/27/22 07:37 36.4 C L 74 18 108/75 94 Nasal Cannula O2 Flow Rate 08/27/22 15:43 5 08/27/22 11:05 08/27/22 08:54 08/27/22 07:40 5 08/27/22 07:37 5
[2022-08-27] MEDS: SENNA 8.6 MG TAB PO SCH (20:32)
[2022-08-28] MEDS: LEVOTHYROXINE SODIUM 88 MCG TABLET PO SCH (05:59)
[2022-08-28] MEDS: FLUTICASONE PROPIONATE NA SPR 16 GM BTL SCH ×2 (08:52→21:28)
[2022-08-28] MEDS: ADVANCED PROBIOTIC 1250 MG CAPSULE PO SCH (08:52)
[2022-08-28] MEDS: predniSONE 10 MG TABLET PO SCH (08:53)
[2022-08-28] MEDS: BENZONATATE 100 MG CAPSULE PO PRN ×2 (08:53→21:27)
[2022-08-28] MEDS: ROSUVASTATIN CALCIUM 5 MG TAB PO SCH (08:53)
[2022-08-28] MEDS: CITALOPRAM 20 MG TAB PO SCH (08:53)
[2022-08-28] MEDS: CYANOCOBALAMIN (B-12) 500 MCG TABLET PO SCH (08:53)
[2022-08-28] MEDS: MAGNESIUM OXIDE 400 MG TAB PO SCH ×2 (08:54→21:29)
[2022-08-28] MEDS: CETIRIZINE HCL 10 MG TABLET PO SCH (08:54)
[2022-08-28] MEDS: HEPARIN SOD 5,000 UNIT/0.5 ML VIAL SQ SCH ×2 (08:54→21:29)
[2022-08-28] MEDS: INSULIN ASPART PER UNIT SC SCH ×4 (08:59→21:37)
[2022-08-28] MEDS: LANTUS PER UNIT CHARGE SQ SCH (08:59)
[2022-08-28] MEDS: POTASSIUM CHLORIDE CRTAB 20 MEQ TABCR PO SCH ×2 (09:07→21:27)
[2022-08-28] MEDS: METOPROLOL TARTRATE 25 MG TAB PO SCH ×3 (10:10→21:32)
[2022-08-28] MEDS: FUROSEMIDE 80 MG TAB PO SCH ×2 (11:21→17:47)
[2022-08-28] MEDS: acetaZOLAMIDE 250 MG TAB PO SCH ×2 (12:32→18:39)
[2022-08-28] MEDS: SENNA 8.6 MG TAB PO SCH (21:28)
--- NOTE | 2022-08-28 23:38 | Hospitalist Progress Note ---
Date of Service August 28, 2022 Assessment & Plan (1) Acute and chronic respiratory failure with hypoxia: Plan 57-year-old lady with PMH of T2DM, chronic hypoxemic respiratory failure on 3 L oxygen at home, HLD, hypothyroidism, hyponatremia, ILD, hypertension, pulmonary hypertension, morbid obesity, immunosuppression due to chronic steroid use presented to the ED/3 with complaint of acute trouble breathing. Patient had COVID in April 2021 complicated with interstitial lung disease. She is being managed for the following: Acute on chronic respiratory failure Interstitial lung disease: taper prednisone over next 2-3 months until it is off. Pulmonary hypertension/cor pulmonale: [facility], may require sleep study, v/q scan, right heart cath. Possible Pulmonary embolism Possible pneumonia Patient presents with 2-day history of worsening shortness of breath, patient has a history of COVID-19 and interstitial lung disease. Admitting WBC WNL and viral panel negative. Admitting troponin and BNP elevated. Patient with no chest pain at admission. 08/16 and 08/17 (repeat) CTA Chest : Mixing artifact vs PE on Rt side. PAH w/ dilatation of Rt heart chamber, and Rt heart dysfunction noted. 4.5 x 2.2 x 1.7 cm groundglass opacity within the superior segment of the right lower lobe noted; follow up Chest CT in 3 month is recommended to ensure resolution. 08/17 BLE doppler: no DVT. 08/17 ECHO: Right ventricle is severely dilated, RV systolic function is severely reduced, right atrium is severely dilated. Right ventricular systolic pressure greater than 60 mmHg. Ejection fraction 65 to 70%. Flattened septum consistent with right pressure/volume overload. 08/22 CTA Chest: No central or lobar PE, prior Rt sided filling defects in prior CTA were artifactual. Concerning for infectious process. On Lasix and Demadex per pulmonology. Titrate potassium supplement, switched iv lasix to home PO dose of lasix 08/21. Currently on 5 L nasal cannula oxygen, patient states that she uses 3 to 4 L at home, patient is short of breath with minimal activity. PT/OT when able. DC'd heparin drip 08/22, s/p antibiotic course for pneumonia as well as 08/22 CTA chest is concerning for infectious process. Pt will likely need transition to rehab, medically optimized otherwise. Follow up w/ Pulm upon DC. PFT as OP. Likely demand ischemia: Elevated troponin at admission, no chest pain, likely secondary to acute and chronic respiratory failure. Echo reviewed. Continue home cardiac medications. Initially metoprolol was held considering acute rt heart strain, now that it is deemed more likely chronic Rt heart dilatation, metoprolol resumed 08/20, uptitrate as BP tolerates. HR has been under control. Mild hyponatremia:Appears chronic, admitting sodium of 130 which appears to be her baseline. Stable Na level. Monitor as needed. UTI: Admitting urine culture positive for E. coli, s/p atb course. Acute kidney injury:Creatinine of 1.45 at presentation, likely prerenal. Resolved. Diarrhea: At presentation, r/o c diff, recent hospitalization. Stool PCR negative. Diarrhea resolved. Full Code Heparin SC Dispo: awaiting placement. Admission and Anticipated Discharge Date Admission Date: August 17, 2022 Subjective Patient seen and examined for follow-up of acute on chronic respiratory failure complicated by interstitial lung disease, pulmonary hypertension, cor pulmonale, questionable pulmonary embolism. Sitting in chair with no acute distress. Patient said that she feels a lot better. Chronically on 5 L by nasal cannula oxygen denies any chest pain, palpitation, dizziness, and fever. Review of Systems Review of Systems: All systems reviewed & are unremarkable except as noted in Subjective Physical Exam Physical Exam: GENERAL: AOx3. NAD. on 15L via OM HEENT: No pallor, no scleral icterus. Moist mucous membranes. NECK: No JVD, trachea midline. HEART: RRR. No murmur, no gallop. RESPIRATORY SYSTEM: No accessory muscle use. +coarse BS ABDOMEN: Soft, bowel sounds present, nontender, no distention. NEURO: No focal deficits. Speech is clear. followed commands. Moves extremities. EXTREMITIES: No edema or erythema. Results & Data Results & Data ([facility]) Vital Signs (Past 12 Hours) Vital Signs Temp Pulse Pulse Pulse Resp BP BP 08/28/22 22:41 36.6 C 82 18 93/62 L 08/28/22 21:30 84 99/64 L 08/28/22 18:38 112/76 08/28/22 17:44 97/64 L 08/28/22 15:14 36.6 C 83 16 101/69 08/28/22 12:30 102/72 Pulse Ox O2 Del Method O2 Flow Rate 08/28/22 22:41 92 Nasal Cannula 5 08/28/22 21:30 08/28/22 18:38 08/28/22 17:44 08/28/22 15:14 92 Nasal Cannula 5 08/28/22 12:30
[2022-08-29] MEDS: LEVOTHYROXINE SODIUM 88 MCG TABLET PO SCH (05:47)
[2022-08-29] MEDS ORDERED: INSULIN ASPART PER UNIT SC SCH (07:30)
[2022-08-29] MEDS: LANTUS PER UNIT CHARGE SQ SCH (08:28)
[2022-08-29] MEDS: INSULIN ASPART PER UNIT SC SCH ×4 (08:28→20:42)
[2022-08-29] MEDS: BENZONATATE 100 MG CAPSULE PO PRN ×2 (08:40→20:44)
[2022-08-29] MEDS: FUROSEMIDE 80 MG TAB PO SCH ×2 (08:41→17:17)
[2022-08-29] MEDS: ADVANCED PROBIOTIC 1250 MG CAPSULE PO SCH (08:41)
[2022-08-29] MEDS: CITALOPRAM 20 MG TAB PO SCH (08:42)
[2022-08-29] MEDS: HEPARIN SOD 5,000 UNIT/0.5 ML VIAL SQ SCH ×2 (08:42→20:46)
[2022-08-29] MEDS: predniSONE 10 MG TABLET PO SCH (08:43)
[2022-08-29] MEDS: CETIRIZINE HCL 10 MG TABLET PO SCH (08:43)
[2022-08-29] MEDS: MAGNESIUM OXIDE 400 MG TAB PO SCH ×2 (08:43→20:45)
[2022-08-29] MEDS: CYANOCOBALAMIN (B-12) 500 MCG TABLET PO SCH (08:43)
[2022-08-29] MEDS: acetaZOLAMIDE 250 MG TAB PO SCH ×2 (08:44→17:16)
[2022-08-29] MEDS: FLUTICASONE PROPIONATE NA SPR 16 GM BTL SCH ×2 (08:44→20:45)
[2022-08-29] MEDS: METOPROLOL TARTRATE 25 MG TAB PO SCH ×2 (08:44→20:45)
[2022-08-29] MEDS: POTASSIUM CHLORIDE CRTAB 20 MEQ TABCR PO SCH ×2 (08:48→20:44)
--- NOTE | 2022-08-29 12:20 | Pharmacy Report ---
Pharmacy Glycemic Short Note 2 - Date of Service August 29, 2022 - Glycemic Short BSG Results (Last 24 hours): 08/28/22 08/28/22 08/28/22 12:10 17:03 20:34 POC Glucose 230 H 177 H 164 H 08/29/22 08/29/22 08:22 12:10 POC Glucose 103 H 164 H OUTPATIENT ANTIDIABETIC REGIMEN: * Lantus 10 units SQ daily * Glipizide 10mg PO daily * Metformin 2gm PO daily * HbA1C: 12.3% (07/24/22) ASSESSMENT: 08/29/22: * BSGs remain reasonably well-controlled w/ occasional episodes of hyperglycemia (ranging 107-230 mg/dL yesterday) * Fasting BSGs remain well-controlled ~100-110 mg/dL, will continue current basal dose * Will further tighter breakfast carb coverage in attempt to limit pre-lunch hyperglycemia * Awaiting placement, patient ready for discharge 08/26/22: * Fasting BSG 80 mg/dL today, will continue with 5 units of lantus for now, may need further adjustment if further down trend * Patient with elevated lunch/dinner BSGs, carb ratio adjusted with breakfast, lunch- will further tighten tomorrow if trend continues * Continues on prednisone 10 mg daily 08/24/22: * Fasting BSG below goal x2 days, so Lantus dose was reduced slightly this morning. * Novolog adjusted to provide additional carb coverage for breakfast and lunch. Pt tends to be hyperglycemic pre-lunch and pre-dinner (which makes sense with AM prednisone administration). * No additional changes at this time. 08/19 * Pt is a 57 YOF admitted with acute on chronic respiratory failure- questionable PE. History of DM2 on insulin and PO medications at home. Pharmacy consulted to assist with glycemic management. * BSGs [phone]/dL the last 24h. Fasting is within goal range at 114 (102mg/dL yesterday). Patient received 8 units of basal and 9 units of bolus insulin yesterday. * Tolerating a diet, on prednisone 10mg PO daily, and a heparin drip (in D5W). * Plan to continue Lantus 8 units daily given well controlled fasting BSGs. Novolog tightened to 45/15 at dinner/HS and 30/10 with breakfast and lunch given higher BSGs earlier in the day followed by significant drop at night. PLAN FOR INPATIENT GLYCEMIC CONTROL: * Hold outpatient oral diabetes medications * Basal insulin * Lantus 5 units SQ daily * Bolus insulin * NovoLog per scale ACHS or Q6hrs while NPO * Goal Range: Low 110 mg/dL - High 140 mg/dL * Correction Factor: 35 mg/dL/unit with breakfast and 40 mg/dL/unit with lunch, dinner, HS * Nutritional / Prandial insulin per carb ratio of 1 unit per 2.5 grams CHO consumed at breakfast 1 unit per 5 grams CHO consumed at lunch, dinner and HS
[2022-08-29] MEDS: SENNA 8.6 MG TAB PO SCH (20:35)
--- NOTE | 2022-08-30 03:10 | Hospitalist Progress Note ---
Date of Service August 29, 2022 Assessment & Plan (1) Acute and chronic respiratory failure with hypoxia: Plan 57-year-old lady with PMH of T2DM, chronic hypoxemic respiratory failure on 3 L oxygen at home, HLD, hypothyroidism, hyponatremia, ILD, hypertension, pulmonary hypertension, morbid obesity, immunosuppression due to chronic steroid use presented to the ED/3 with complaint of acute trouble breathing. Patient had COVID in April 2021 complicated with interstitial lung disease. She is being managed for the following: Acute on chronic respiratory failure Interstitial lung disease: taper prednisone over next 2-3 months until it is off. Pulmonary hypertension/cor pulmonale: [facility], may require sleep study, v/q scan, right heart cath. Possible Pulmonary embolism Possible pneumonia Patient presents with 2-day history of worsening shortness of breath, patient has a history of COVID-19 and interstitial lung disease. Admitting WBC WNL and viral panel negative. Admitting troponin and BNP elevated. Patient with no chest pain at admission. 08/16 and 08/17 (repeat) CTA Chest : Mixing artifact vs PE on Rt side. PAH w/ dilatation of Rt heart chamber, and Rt heart dysfunction noted. 4.5 x 2.2 x 1.7 cm groundglass opacity within the superior segment of the right lower lobe noted; follow up Chest CT in 3 month is recommended to ensure resolution. 08/17 BLE doppler: no DVT. 08/17 ECHO: Right ventricle is severely dilated, RV systolic function is severely reduced, right atrium is severely dilated. Right ventricular systolic pressure greater than 60 mmHg. Ejection fraction 65 to 70%. Flattened septum consistent with right pressure/volume overload. 08/22 CTA Chest: No central or lobar PE, prior Rt sided filling defects in prior CTA were artifactual. Concerning for infectious process. On Lasix and Demadex per pulmonology. Titrate potassium supplement, switched iv lasix to home PO dose of lasix 08/21. Currently on 5 L nasal cannula oxygen, patient states that she uses 3 to 4 L at home, patient is short of breath with minimal activity. PT/OT when able. DC'd heparin drip 08/22, s/p antibiotic course for pneumonia as well as 08/22 CTA chest is concerning for infectious process. Pt will likely need transition to rehab, medically optimized otherwise. Follow up w/ Pulm upon DC. PFT as OP. Likely demand ischemia: Elevated troponin at admission, no chest pain, likely secondary to acute and chronic respiratory failure. Echo reviewed. Continue home cardiac medications. Initially metoprolol was held considering acute rt heart strain, now that it is deemed more likely chronic Rt heart dilatation, metoprolol resumed 08/20, uptitrate as BP tolerates. HR has been under control. Mild hyponatremia:Appears chronic, admitting sodium of 130 which appears to be her baseline. Stable Na level. Monitor as needed. UTI: Admitting urine culture positive for E. coli, s/p atb course. Acute kidney injury:Creatinine of 1.45 at presentation, likely prerenal. Resolved. Diarrhea: At presentation, r/o c diff, recent hospitalization. Stool PCR negative. Diarrhea resolved. Full Code Heparin SC Dispo: awaiting placement. Admission and Anticipated Discharge Date Admission Date: August 17, 2022 Subjective Patient seen and examined for follow-up of acute on chronic respiratory failure complicated by interstitial lung disease, pulmonary hypertension, cor pulmonale, questionable pulmonary embolism. Sitting in chair with no acute distress. Patient said that she feels a lot better. Chronically on 5 L by nasal cannula oxygen. Waiting for placement to rehab. Denies any chest pain, palpitation, dizziness, and fever. Review of Systems Review of Systems: All systems reviewed & are unremarkable except as noted in Subjective Physical Exam Physical Exam: GENERAL: AOx3. NAD. on 15L via OM HEENT: No pallor, no scleral icterus. Moist mucous membranes. NECK: No JVD, trachea midline. HEART: RRR. No murmur, no gallop. RESPIRATORY SYSTEM: No accessory muscle use. +coarse BS ABDOMEN: Soft, bowel sounds present, nontender, no distention. NEURO: No focal deficits. Speech is clear. followed commands. Moves extremities. EXTREMITIES: No edema or erythema. Results & Data Results & Data ([facility]) Vital Signs (Past 12 Hours) Vital Signs Temp Pulse Resp BP Pulse Ox O2 Del Method O2 Flow Rate 08/29/22 22:25 36.6 C 08/29/22 20:32 36.2 C L 83 20 102/70 90 Nasal Cannula 5 08/29/22 19:15 Nasal Cannula 5
[2022-08-30] MEDS: LEVOTHYROXINE SODIUM 88 MCG TABLET PO SCH (05:02)
[2022-08-30] MEDS: BENZONATATE 100 MG CAPSULE PO PRN ×2 (08:35→20:44)
[2022-08-30] MEDS: HEPARIN SOD 5,000 UNIT/0.5 ML VIAL SQ SCH ×2 (08:35→20:43)
[2022-08-30] MEDS: METOPROLOL TARTRATE 25 MG TAB PO SCH ×2 (08:36→20:44)
[2022-08-30] MEDS: MAGNESIUM OXIDE 400 MG TAB PO SCH ×2 (08:36→20:44)
[2022-08-30] MEDS: CITALOPRAM 20 MG TAB PO SCH (08:36)
[2022-08-30] MEDS: FUROSEMIDE 80 MG TAB PO SCH ×2 (08:36→17:33)
[2022-08-30] MEDS: CYANOCOBALAMIN (B-12) 500 MCG TABLET PO SCH (08:36)
[2022-08-30] MEDS: predniSONE 10 MG TABLET PO SCH (08:36)
[2022-08-30] MEDS: ADVANCED PROBIOTIC 1250 MG CAPSULE PO SCH (08:36)
[2022-08-30] MEDS: CETIRIZINE HCL 10 MG TABLET PO SCH (08:37)
[2022-08-30] MEDS: acetaZOLAMIDE 250 MG TAB PO SCH ×2 (08:37→17:33)
[2022-08-30] MEDS: POTASSIUM CHLORIDE CRTAB 20 MEQ TABCR PO SCH ×2 (08:38→20:44)
[2022-08-30] MEDS: INSULIN ASPART PER UNIT SC SCH ×4 (08:47→21:03)
[2022-08-30] MEDS: LANTUS PER UNIT CHARGE SQ SCH (08:47)
[2022-08-30] MEDS: FLUTICASONE PROPIONATE NA SPR 16 GM BTL SCH ×2 (09:14→20:43)
[2022-08-30] MEDS ORDERED: ACETAMINOPHEN HOME PACK 500 MG TABLET PO ONE (10:31)
[2022-08-30] MEDS ORDERED: ACETAMINOPHEN 500 MG TAB PO ONE (11:00)
[2022-08-30] MEDS: LEVALBUTEROL HCL 0.63 MG/3 ML NEB INH PRN (18:32)
--- NOTE | 2022-08-30 18:51 | Hospitalist Progress Note ---
Date of Service August 30, 2022 Assessment & Plan (1) Acute and chronic respiratory failure with hypoxia: Plan 57-year-old lady with PMH of T2DM, chronic hypoxemic respiratory failure on 3 L oxygen at home, HLD, hypothyroidism, hyponatremia, ILD, hypertension, pulmonary hypertension, morbid obesity, immunosuppression due to chronic steroid use presented to the ED/3 with complaint of acute trouble breathing. Patient had COVID in April 2021 complicated with interstitial lung disease. She is being managed for the following: Acute on chronic respiratory failure Interstitial lung disease: taper prednisone over next 2-3 months until it is off. Pulmonary hypertension/cor pulmonale: [facility], may require sleep study, v/q scan, right heart cath. Possible Pulmonary embolism Possible pneumonia Patient presents with 2-day history of worsening shortness of breath, patient has a history of COVID-19 and interstitial lung disease. Admitting WBC WNL and viral panel negative. Admitting troponin and BNP elevated. Patient with no chest pain at admission. 08/16 and 08/17 (repeat) CTA Chest : Mixing artifact vs PE on Rt side. PAH w/ dilatation of Rt heart chamber, and Rt heart dysfunction noted. 4.5 x 2.2 x 1.7 cm groundglass opacity within the superior segment of the right lower lobe noted; follow up Chest CT in 3 month is recommended to ensure resolution. 08/17 BLE doppler: no DVT. 08/17 ECHO: Right ventricle is severely dilated, RV systolic function is severely reduced, right atrium is severely dilated. Right ventricular systolic pressure greater than 60 mmHg. Ejection fraction 65 to 70%. Flattened septum consistent with right pressure/volume overload. 08/22 CTA Chest: No central or lobar PE, prior Rt sided filling defects in prior CTA were artifactual. Concerning for infectious process. On Lasix and Demadex per pulmonology. Titrate potassium supplement, switched iv lasix to home PO dose of lasix 08/21. Currently on 5 L nasal cannula oxygen, patient states that she uses 3 to 4 L at home, patient is short of breath with minimal activity. PT/OT when able. DC'd heparin drip 08/22, s/p antibiotic course for pneumonia as well as 08/22 CTA chest is concerning for infectious process. Pt will likely need transition to rehab, medically optimized otherwise. Follow up w/ Pulm upon DC. PFT as OP. Likely demand ischemia: Elevated troponin at admission, no chest pain, likely secondary to acute and chronic respiratory failure. Echo reviewed. Continue home cardiac medications. Initially metoprolol was held considering acute rt heart strain, now that it is deemed more likely chronic Rt heart dilatation, metoprolol resumed 08/20, uptitrate as BP tolerates. HR has been under control. Mild hyponatremia:Appears chronic, admitting sodium of 130 which appears to be her baseline. Stable Na level. Monitor as needed. UTI: Admitting urine culture positive for E. coli, s/p atb course. Acute kidney injury:Creatinine of 1.45 at presentation, likely prerenal. Resolved. Diarrhea: At presentation, r/o c diff, recent hospitalization. Stool PCR negative. Continue loperamide as needed. We will monitor electrolyte CODE STATUS full Code Heparin SC Dispo: awaiting placement. Admission and Anticipated Discharge Date Admission Date: August 17, 2022 Subjective Patient seen and examined for follow-up of acute on chronic respiratory failure complicated by interstitial lung disease, pulmonary hypertension, cor pulmonale, questionable pulmonary embolism. Sitting in chair with no acute distress. Patient said that she feels tired today. She said she has been having recurrent episode watery diarrhea. Waiting for placement to rehab. Denies any chest pain, palpitation, dizziness, and fever. Review of Systems Review of Systems: All systems reviewed & are unremarkable except as noted in Subjective Physical Exam Physical Exam: GENERAL: AOx3. NAD. on 15L via OM HEENT: No pallor, no scleral icterus. Moist mucous membranes. NECK: No JVD, trachea midline. HEART: RRR. No murmur, no gallop. RESPIRATORY SYSTEM: No accessory muscle use. + Diminished ABDOMEN: Soft, bowel sounds present, nontender, no distention. NEURO: No focal deficits. Speech is clear. followed commands. Moves extremities. EXTREMITIES: No edema or erythema. Results & Data Results & Data ([facility]) Vital Signs (Past 12 Hours) Vital Signs Temp Pulse Resp BP Pulse Ox O2 Del Method O2 Flow Rate 08/30/22 18:32 24 94 Nasal Cannula 08/30/22 15:39 36.3 C L 72 20 106/76 90 Nasal Cannula 08/30/22 07:48 Nasal Cannula 08/30/22 07:53 36.5 C 69 19 106/74 91 Nasal Cannula 5
[2022-08-30] MEDS: SENNA 8.6 MG TAB PO SCH (19:53)
[2022-08-31] MEDS: LEVOTHYROXINE SODIUM 88 MCG TABLET PO SCH (06:24)
[2022-08-31 07:19] LABS: Hematocrit (blood only) 46.9 % (34.1-44.9); Hemoglobin 15.5 g/dl (12.0-16.0); Mean Corpuscular Hemoglobin 28.3 pg (25.0-34.0); Mean Corpuscular Volume 85.7 fL (80.0-100.0); Mean Platelet Volume 10.5 fL (9.4-12.3); Nucleated RBC # (auto) 0.06 K/uL (0-0); Nucleated RBC % (auto) 0.8 %; Platelet Count 218 K/uL (130-400); RDW Coefficient of Variation 21.6 % (11.5-14.5); RDW Standard Deviation 64.7 fL (36.4-46.3); Red Blood Count 5.47 M/uL (3.93-5.22); White Blood Count 7.18 K/ul (4.8-10.8)
[2022-08-31 08:03] LABS: Potassium 4.1 mmol/L (3.5-5.1)
[2022-08-31 08:09] LABS: BUN Creatinine Ratio 32.6 (10-20); Creatinine Clr Calc Pharmacy 75.8 ml/min; Est GFR (African American) 88.1 ml/min; Est GFR (Non-African American) 76.1 ml/min
[2022-08-31] MEDS ORDERED: ERGOCALCIFEROL 50,000 UNITS 1250 MCG CAP PO SCH (09:00)
[2022-08-31] MEDS: INSULIN ASPART PER UNIT SC SCH ×4 (09:14→20:40)
[2022-08-31] MEDS: FLUTICASONE PROPIONATE NA SPR 16 GM BTL SCH ×2 (09:15→20:34)
[2022-08-31] MEDS: LANTUS PER UNIT CHARGE SQ SCH (09:21)
[2022-08-31] MEDS: CITALOPRAM 20 MG TAB PO SCH (09:22)
[2022-08-31] MEDS: FUROSEMIDE 80 MG TAB PO SCH ×2 (09:22→17:43)
[2022-08-31] MEDS: acetaZOLAMIDE 250 MG TAB PO SCH ×2 (09:22→17:43)
[2022-08-31] MEDS: MAGNESIUM OXIDE 400 MG TAB PO SCH ×2 (09:23→20:37)
[2022-08-31] MEDS: POTASSIUM CHLORIDE CRTAB 20 MEQ TABCR PO SCH ×2 (09:23→20:43)
[2022-08-31] MEDS: ADVANCED PROBIOTIC 1250 MG CAPSULE PO SCH (09:23)
[2022-08-31] MEDS: BENZONATATE 100 MG CAPSULE PO PRN ×2 (09:23→20:34)
[2022-08-31] MEDS: predniSONE 10 MG TABLET PO SCH (09:23)
[2022-08-31] MEDS: ROSUVASTATIN CALCIUM 5 MG TAB PO SCH (09:23)
[2022-08-31] MEDS: METOPROLOL TARTRATE 25 MG TAB PO SCH ×2 (09:23→20:38)
[2022-08-31] MEDS: CETIRIZINE HCL 10 MG TABLET PO SCH (09:24)
[2022-08-31] MEDS: CYANOCOBALAMIN (B-12) 500 MCG TABLET PO SCH (09:24)
[2022-08-31] MEDS: HEPARIN SOD 5,000 UNIT/0.5 ML VIAL SQ SCH ×2 (09:24→20:35)
[2022-08-31] MEDS ORDERED: ACETAMINOPHEN 325 MG TAB PO PRN (12:38)
--- NOTE | 2022-08-31 12:53 | Pharmacy Report ---
Pharmacy Glycemic Short Note 2 - Date of Service August 31, 2022 - Glycemic Short BSG Results (Last 24 hours): 08/30/22 08/30/22 08/31/22 17:06 20:36 06:58 Glucose 80 POC Glucose 159 H 159 H 08/31/22 08/31/22 08:13 12:09 Glucose POC Glucose 90 144 H OUTPATIENT ANTIDIABETIC REGIMEN: * Lantus 10 units SQ daily * Glipizide 10mg PO daily * Metformin 2gm PO daily * HbA1C: 12.3% (07/24/22) ASSESSMENT: 08/31 * BSGs stable on current regimen [phone] mg/dL * Fasting 90 mg/dL this AM, continue 5 units of lantus qAM * Continues on prednisone 10 mg, continue current novolog parameters 08/29/22: * BSGs remain reasonably well-controlled w/ occasional episodes of hyperglycemia (ranging 107-230 mg/dL yesterday) * Fasting BSGs remain well-controlled ~100-110 mg/dL, will continue current basal dose * Will further tighter breakfast carb coverage in attempt to limit pre-lunch hyperglycemia * Awaiting placement, patient ready for discharge 08/26/22: * Fasting BSG 80 mg/dL today, will continue with 5 units of lantus for now, may need further adjustment if further down trend * Patient with elevated lunch/dinner BSGs, carb ratio adjusted with breakfast, lunch- will further tighten tomorrow if trend continues * Continues on prednisone 10 mg daily 08/24/22: * Fasting BSG below goal x2 days, so Lantus dose was reduced slightly this morning. * Novolog adjusted to provide additional carb coverage for breakfast and lunch. Pt tends to be hyperglycemic pre-lunch and pre-dinner (which makes sense with AM prednisone administration). * No additional changes at this time. 08/19 * Pt is a 57 YOF admitted with acute on chronic respiratory failure- questionable PE. History of DM2 on insulin and PO medications at home. Pharmacy consulted to assist with glycemic management. * BSGs [phone]/dL the last 24h. Fasting is within goal range at 114 (102mg/dL yesterday). Patient received 8 units of basal and 9 units of bolus insulin yesterday. * Tolerating a diet, on prednisone 10mg PO daily, and a heparin drip (in D5W). * Plan to continue Lantus 8 units daily given well controlled fasting BSGs. Novolog tightened to 45/15 at dinner/HS and 30/10 with breakfast and lunch given higher BSGs earlier in the day followed by significant drop at night. PLAN FOR INPATIENT GLYCEMIC CONTROL: * Hold outpatient oral diabetes medications * Basal insulin * Lantus 5 units SQ daily * Bolus insulin * NovoLog per scale ACHS or Q6hrs while NPO * Goal Range: Low 110 mg/dL - High 140 mg/dL * Correction Factor: 35 mg/dL/unit with breakfast and 40 mg/dL/unit with lunch, dinner, HS * Nutritional / Prandial insulin per carb ratio of 1 unit per 2.5 grams CHO consumed at breakfast 1 unit per 5 grams CHO consumed at lunch, dinner and HS
--- NOTE | 2022-08-31 14:35 | Hospitalist Progress Note ---
Date of Service August 31, 2022 Assessment & Plan (1) Acute and chronic respiratory failure with hypoxia: Plan 57-year-old lady with PMH of T2DM, chronic hypoxemic respiratory failure on 3 L oxygen at home, HLD, hypothyroidism, hyponatremia, ILD, hypertension, pulmonary hypertension, morbid obesity, immunosuppression due to chronic steroid use presented to the ED/3 with complaint of acute trouble breathing. Patient had COVID in April 2021 complicated with interstitial lung disease. She is being managed for the following: Acute on chronic respiratory failure Interstitial lung disease: taper prednisone over next 2-3 months until it is off. Pulmonary hypertension/cor pulmonale: f/u [facility], may require sleep study, v/q scan, right heart cath. Possible pneumonia Patient presented with 2-day history of worsening shortness of breath Patient has a history of COVID-19 and interstitial lung disease. Admitting WBC WNL and viral panel negative. Admitting troponin and BNP elevated. Patient with no chest pain at admission. 08/16/22 and 08/17/22 (repeat) CTA Chest : Mixing artifact vs PE on Rt side. PAH w/ dilatation of Rt heart chamber, and Rt heart dysfunction noted. 4.5 x 2.2 x 1.7 cm ground glass opacity within the superior segment of the right lower lobe noted; 08/17/22 Bilateral LE doppler: no DVT. 08/17/22 ECHO: Right ventricle is severely dilated, RV systolic function is severely reduced, right atrium is severely dilated. Right ventricular systolic pressure greater than 60 mmHg. Ejection fraction 65 to 70%. Flattened septum consistent with right pressure/volume overload. 08/22/22 CTA Chest: No central or lobar PE, prior Rt sided filling defects in prior CTA were artifactual. Concerning for infectious process. Continue lasix and diamox per pulmonology. Continue po potassium supplement Currently on 5 L nasal cannula oxygen at the time of my evaluation. Reports she uses 3 to 4 L at home Heparin drip that was started following initially CTA that was concerning for possible PE was discontinued once CT PE on 08/22/22 ruled out PE Completed antibiotic course for pneumonia as well Pt will likely need transition to rehab, medically optimized otherwise. Follow up w/ Pulm upon DC. PFT as outpatient . Likely demand ischemia: Elevated troponin at admission No chest pain on admission. Chest pain reported today was associated with coughing and stated it resolved with tylenol Likely secondary to acute and chronic respiratory failure. Echo reviewed. Continue home cardiac medications. Hyponatremia: Appears chronic Admitting sodium of 130 which appears to be her baseline. Monitor as needed. UTI: Admitting urine culture positive for E. coli Completed antibiotic course. Acute kidney injury: Creatinine of 1.45 at presentation, likely prerenal. Resolved. Diarrhea: Stool PCR negative. Continue loperamide as needed. Improved CODE STATUS full Code Heparin SC Dispo: awaiting placement. Admission and Anticipated Discharge Date Admission Date: August 17, 2022 Subjective Patient seen and examined Reports cough. Stated cough was associated with chest pain earlier today. Chest pain currently resolved with tylenol Reports some dyspnea with exertion Reports diarrhea is resolving. Only had one BM so far today, loose and not watery Denied nausea, abd pain Denied dysuria, freq,urgency Physical Exam Constitutional: + well hydrated; no acute distress Eyes: PERRL, conjunctivae normal, anicteric sclerae ENMT: external ear and nose normal, oropharynx normal Respiratory: normal respiratory effort; no respiratory distress Diminisehd breath sounds On nasal cannula Cardiovascular: Rate/Rhythm: regular rate and regular rhythm S1 S2 Gastrointestinal (Abdomen): normal bowel sounds, soft, nontender, no hepatosplenomegaly Musculoskeletal: no cyanosis or clubbing, extremities motor strength 5/5 Neurologic: PERRL, EOMI, accommodation nl, no face palsy, no dysarthria Psychiatric: A+Ox3, euthymic affect Results & Data Results & Data ([facility]) Vital Signs (Past 12 Hours) Vital Signs Temp Pulse Resp BP Pulse Ox O2 Del Method O2 Flow Rate 08/31/22 10:21 Nasal Cannula 5 08/31/22 08:14 110/78 92 Nasal Cannula 6 08/31/22 07:20 36.5 C 65 18 90/64 L 93 Nasal Cannula 6 Laboratory Results Abnormal lab results 08/30/22 08/30/22 08/31/22 Range/Units 17:06 20:36 06:58 RBC 5.47 H (3.93-5.22) M/uL Hct 46.9 H (34.1-44.9) % RDW Std Deviation 64.7 H (36.4-46.3) fL RDW Coeff of Lulu 21.6 H (11.5-14.5) % Absolute Nucleated RBC 0.06 H (0-0) K/uL Sodium (136-145) mmol/L BUN (6-23) mg/dl BUN/Creatinine Ratio (10-20) POC Glucose 159 H 159 H (70-99) mg/dl 08/31/22 08/31/22 Range/Units 06:58 12:09 RBC (3.93-5.22) M/uL Hct (34.1-44.9) % RDW Std Deviation (36.4-46.3) fL RDW Coeff of Lulu (11.5-14.5) % Absolute Nucleated RBC (0-0) K/uL Sodium 129 L (136-145) mmol/L BUN 28 H (6-23) mg/dl BUN/Creatinine Ratio 32.6 H (10-20) POC Glucose 144 H (70-99) mg/dl
[2022-08-31] MEDS: LEVALBUTEROL HCL 0.63 MG/3 ML NEB INH PRN (15:06)
--- NOTE | 2022-08-31 16:35 | XRay Report ---
SINGLE VIEW CHEST CLINICAL HISTORY: Hypoxia. FINDINGS: An AP, portable, upright chest radiograph is compared to study dated 08/16/2022 and correlate d with chest CT dated 08/22/2022. The heart is enlarged. There is no clear radiographic evidence of con gestive failure. Findings of chronic interstitial lung disease with fibrotic change in the right uppe r lung is similar to previous. There is no evidence of superimposed airspace consolidation or large p leural effusion. No pneumothorax is seen. The skeletal structures are osteopenic. The bony thorax is grossly intact. Calcific tendinopathy is noted in the right shoulder. IMPRESSION: Cardiomegaly with changes of chronic interstitial/fibrotic lung disease as above. This is similar to previous with no evidence of superimposed airspace consolidation or large pleural effusio n. ACT 112: Negative or not required by law. Electronically signed by: Slim Carlisle M.D. 08/31/2022 4:33 PM
[2022-09-01] MEDS: LEVOTHYROXINE SODIUM 88 MCG TABLET PO SCH (05:30)
[2022-09-01 06:07] LABS: Hematocrit (blood only) 45.1 % (34.1-44.9); Hemoglobin 14.7 g/dl (12.0-16.0); Mean Corpuscular Hemoglobin 27.9 pg (25.0-34.0); Mean Corpuscular Hgb Conc 32.6 g/dL (32.0-36.0); Mean Corpuscular Volume 85.7 fL (80.0-100.0); Mean Platelet Volume 10.9 fL (9.4-12.3); Nucleated RBC % (auto) 1.3 %; Platelet Count 265 K/uL (130-400); RDW Coefficient of Variation 21.6 % (11.5-14.5); RDW Standard Deviation 65.9 fL (36.4-46.3); Red Blood Count 5.26 M/uL (3.93-5.22); White Blood Count 7.66 K/ul (4.8-10.8)
[2022-09-01 06:33] LABS: Calcium 8.6 mg/dl (8.5-10.1); Magnesium 2.1 mg/dl (1.7-2.4)
[2022-09-01 06:39] LABS: BUN Creatinine Ratio 31.9 (10-20); Creatinine Clr Calc Pharmacy 71.7 ml/min; Est GFR (African American) 82.3 ml/min; Phosphorus 5.2 mg/dl (2.5-4.9)
[2022-09-01] MEDS: predniSONE 10 MG TABLET PO SCH (09:04)
[2022-09-01] MEDS: METOPROLOL TARTRATE 25 MG TAB PO SCH ×2 (09:04→20:05)
[2022-09-01] MEDS: MAGNESIUM OXIDE 400 MG TAB PO SCH ×2 (09:04→20:05)
[2022-09-01] MEDS: CETIRIZINE HCL 10 MG TABLET PO SCH (09:04)
[2022-09-01] MEDS: ADVANCED PROBIOTIC 1250 MG CAPSULE PO SCH (09:04)
[2022-09-01] MEDS: FUROSEMIDE 80 MG TAB PO SCH ×2 (09:05→16:31)
[2022-09-01] MEDS: CITALOPRAM 20 MG TAB PO SCH (09:05)
[2022-09-01] MEDS: acetaZOLAMIDE 250 MG TAB PO SCH ×2 (09:06→16:31)
[2022-09-01] MEDS: CYANOCOBALAMIN (B-12) 500 MCG TABLET PO SCH (09:06)
[2022-09-01] MEDS: FLUTICASONE PROPIONATE NA SPR 16 GM BTL SCH ×2 (09:07→20:02)
[2022-09-01] MEDS: BENZONATATE 100 MG CAPSULE PO PRN ×2 (09:07→20:08)
[2022-09-01] MEDS: INSULIN ASPART PER UNIT SC SCH ×4 (09:11→21:17)
[2022-09-01] MEDS: LANTUS PER UNIT CHARGE SQ SCH (09:12)
[2022-09-01] MEDS: HEPARIN SOD 5,000 UNIT/0.5 ML VIAL SQ SCH ×2 (09:12→20:05)
[2022-09-01] MEDS: POTASSIUM CHLORIDE CRTAB 20 MEQ TABCR PO SCH ×2 (09:18→20:13)
--- NOTE | 2022-09-01 10:02 | Pharmacy Report ---
Pharmacy Glycemic Short Note 2 - Date of Service September 01, 2022 - Glycemic Short BSG Results (Last 24 hours): 08/31/22 08/31/22 08/31/22 12:09 17:09 20:20 Glucose POC Glucose 144 H 154 H 269 H 09/01/22 09/01/22 05:32 08:12 Glucose 76 POC Glucose 84 OUTPATIENT ANTIDIABETIC REGIMEN: * Lantus 10 units SC daily * Glipizide 10mg PO daily * Metformin 2gm PO daily * HbA1C: 12.3% (07/24/22) ASSESSMENT: 09/01: * Ale received a total of 40 units of insulin yesterday, 5 units basal + 35 units bolus. BSGs were: [phone] mg/dL. * Fasting BSG was 84 mg/dL this AM. Lantus already administered this AM so will discontinue it and have pharmacist follow up tomorrow AM to reassess basal needs. * Unsure of reason for elevated BSG at HS last evening. Assuming this is an outlier. Therefore, no changes to Novolog today. 08/31: * BSGs stable on current regimen [phone] mg/dL * Fasting 90 mg/dL this AM, continue 5 units of lantus qAM * Continues on prednisone 10 mg, continue current novolog parameters 08/19: * Pt is a 57 YOF admitted with acute on chronic respiratory failure- questionable PE. History of DM2 on insulin and PO medications at home. Pharmacy consulted to assist with glycemic management. * BSGs [phone]/dL the last 24h. Fasting is within goal range at 114 (102mg/dL yesterday). Patient received 8 units of basal and 9 units of bolus insulin yesterday. * Tolerating a diet, on prednisone 10mg PO daily, and a heparin drip (in D5W). * Plan to continue Lantus 8 units daily given well controlled fasting BSGs. Novolog tightened to 45/15 at dinner/HS and 30/10 with breakfast and lunch given higher BSGs earlier in the day followed by significant drop at night. PLAN FOR INPATIENT GLYCEMIC CONTROL: * Hold outpatient oral diabetes medications * Basal insulin * Lantus 5 units SC this AM x 1 * Reassess basal needs tomorrow morning * Bolus insulin * NovoLog per scale ACHS or Q6hrs while NPO * Goal Range: Low 110 mg/dL - High 140 mg/dL * Correction Factor: 35 mg/dL/unit with breakfast and 40 mg/dL/unit with lunch, dinner, HS * Nutritional / Prandial insulin per carb ratio of 1 unit per 2.5 grams CHO consumed at breakfast 1 unit per 5 grams CHO consumed at lunch, dinner and HS
--- NOTE | 2022-09-01 15:07 | Hospitalist Progress Note ---
Date of Service September 01, 2022 Assessment & Plan (1) Acute and chronic respiratory failure with hypoxia: Plan 57-year-old lady with PMH of T2DM, chronic hypoxemic respiratory failure on 3 L oxygen at home, HLD, hypothyroidism, hyponatremia, ILD, hypertension, pulmonary hypertension, morbid obesity, immunosuppression due to chronic steroid use presented to the ED/3 with complaint of acute trouble breathing. Patient had COVID in April 2021 complicated with interstitial lung disease. She is being managed for the following: Acute on chronic respiratory failure Interstitial lung disease: taper prednisone over next 2-3 months until it is off. Pulmonary hypertension/cor pulmonale: f/u [facility], may require sleep study, v/q scan, right heart cath. Possible pneumonia Patient presented with 2-day history of worsening shortness of breath Patient has a history of COVID-19 and interstitial lung disease. Admitting WBC WNL and viral panel negative. Admitting troponin and BNP elevated. Patient with no chest pain at admission. 08/16/22 and 08/17/22 (repeat) CTA Chest : Mixing artifact vs PE on Rt side. PAH w/ dilatation of Rt heart chamber, and Rt heart dysfunction noted. 4.5 x 2.2 x 1.7 cm ground glass opacity within the superior segment of the right lower lobe noted; 08/17/22 Bilateral LE doppler: no DVT. 08/17/22 ECHO: Right ventricle is severely dilated, RV systolic function is severely reduced, right atrium is severely dilated. Right ventricular systolic pressure greater than 60 mmHg. Ejection fraction 65 to 70%. Flattened septum consistent with right pressure/volume overload. 08/22/22 CTA Chest: No central or lobar PE, prior Rt sided filling defects in prior CTA were artifactual. Concerning for infectious process. Continue lasix and diamox per pulmonology. Continue po potassium supplement Currently on 5 L nasal cannula oxygen at the time of my evaluation. Reports she uses 3 to 4 L at home Heparin drip that was started following initially CTA that was concerning for possible PE was discontinued once CT PE on 08/22/22 ruled out PE Completed antibiotic course for pneumonia as well Pt will likely need transition to rehab, medically optimized otherwise. Follow up w/ Pulm upon DC. PFT as outpatient Likely demand ischemia: Elevated troponin at admission No chest pain on admission. Chest pain reported today was associated with coughing and stated it resolved with Tylenol Likely secondary to acute and chronic respiratory failure. Echo reviewed Continue home cardiac medications Hyponatremia: Appears chronic Admitting sodium of 130 which appears to be her baseline Monitor as needed UTI: Admitting urine culture positive for E. coli Completed antibiotic course. Acute kidney injury: Creatinine of 1.45 at presentation, likely prerenal. Resolved. Diarrhea: Stool PCR negative. Continue loperamide as needed. Improved CODE STATUS full Code Heparin SC Dispo: awaiting placement - plan for discharge tomorrow A total of 35 minutes were spent with greater than 50% of that time face to face with the patient, personally reviewing all current laboratories, imaging studies, past medication reconciliation, outpatient chart review, and discussion with specialists to collaborate care for the patient with attending and utilization of translation services. Please see attending documentation for corrections and/or additions. Admission and Anticipated Discharge Date Admission Date: August 17, 2022 Supervising Physician Co-Signing Physician Notes Patient seen and examined Agree with findings and plans per Shira Dudley PA-C Subjective Patient seen and examined in 353-2 in follow-up for acute on chronic respiratory failure, history of interstitial lung disease and pulmonary hypertension. Feeling better today and was weaned from oxygen mask to nasal cannula at 5 L/min. Baseline is between 3.5 and 4. Still with cough but improving. Comfortable at rest, some dyspnea with exertion with movement. Diarrhea is resolving, with last episode of loose stool yesterday. No fever, chills, lightheadedness, chest pain, nausea, vomiting, abdominal pain, dysuria or constipation. Review of Systems Review of Systems: At least ten systems reviewed and negative except as noted in the HPI. Physical Exam Physical Exam: Gen: WD/WN, NAD, sitting in bedside chair, A&Ox3 HEENT: Normocephalic, atraumatic, conjunctivae moist, sclerae anicteric, mucous membranes moist Lung: Normal respiratory effort; diminished breath sounds, no wheezes/rales/rhonchi Heart: Regular rate, regular rhythm, no murmurs, rubs, or gallops Abdomen: Soft, NT, ND +BS x 4 Extremities: no edema Skin: Warm, no rash Results & Data Results & Data ([facility]) Vital Signs (Past 12 Hours) Vital Signs Temp Pulse Resp BP Pulse Ox O2 Del Method O2 Flow Rate 09/01/22 10:00 Nasal Cannula 5 09/01/22 07:25 36.5 C 62 18 114/75 95 Oxymask 6 Laboratory Results Short CBC 09/01/22 Range/Units 05:32 WBC 7.66 (4.8-10.8) K/ul Hgb 14.7 (12.0-16.0) g/dl Hct 45.1 H (34.1-44.9) % Plt Count 265 (130-400) K/uL BMP 09/01/22 05:32 Sodium 134 L Potassium 4.0 Chloride 99 Carbon Dioxide 29 BUN 29 H Creatinine 0.91 Glucose 76 Calcium 8.6 Diagnostic Findings Chest X-Ray 08/16/22 22:10 XR chest 1V portable HISTORY: 57 years-old Female SOB acute shortness of breath COMPARISON: CTA chest of same day, chest CT 07/24/2021 TECHNIQUE: AP view of the chest FINDINGS: Cardiac silhouette is enlarged. Atherosclerosis of the aorta. Pulmonary arterial hypertension. Emphysema with chronic interstitial lung disease redemonstrated, most pronounced in the right upper lung. Chronic right lung volume loss. No pneumothorax, pleural effusion, new lobar airspace consolidation or overt pulmonary edema. Right shoulder rotator cuff calcific tendinosis. Degenerative changes of the shoulders and spine. IMPRESSION: 1. Chronic interstitial lung disease. 2. Mild right lung volume loss again noted. 3. Cardiomegaly with pulmonary arterial hypertension. ACT 112: Negative or not required by law. The above report was generated using voice recognition software. It may contain grammatical, syntax or spelling errors. Electronically signed by: Ran Morales M.D. 08/17/2022 8:40 AM Chest CTA 08/16/22 22:34 CT ANGIOGRAPHY OF THE CHEST, PULMONARY EMBOLUS PROTOCOL CLINICAL HISTORY: Increasing shortness of breath. COMPARISON STUDY: Chest CT July 24, 2022 and chest radiograph August 16, 2022. TECHNIQUE: Following IV administration of 108 mL of Optiray, helical axial images of the chest were obtained utilizing the pulmonary embolus protocol. Maximal intensity projections and sagittal and coronal reformats were viewed on an independent 3D workstation. IV contrast was administered without complication. Automated exposure control was utilized for the study. A dose lowering technique was utilized adhering to the principles of ALARA. CT DOSE: 474.78 mGy.cm FINDINGS: Evaluation of the pulmonary arteries is significantly compromised given mixing artifact. Apparent filling defects within the right-sided pulmonary arteries are likely due to mixing artifact. Moderate cardiomegaly is noted. Dilatation of the right heart chambers has increased since earlier CT of May 06, 2021. There is straightening of the interventricular septum. The left ventricle is small when compared to the right. There is no pericardial effusion. Subcarinal lymph node has decreased in size since CT of May 06, 2021. There is no pneumothorax or pleural effusion. Pulmonary fibrosis is again noted with subpleural reticulation, honeycombing and traction bronchiectasis. A groundglass opacity within the superior segment of the right lower lobe measures 4.5 x 2.2 x 1.7 cm. This is unchanged since prior CT. No fracture or suspicious lesion within the bony thorax is noted. The IVC and hepatic veins are mildly dilated with reflux of contrast due to right heart dysfunction. Mild dilatation of the ascending aorta is unchanged. IMPRESSION: 1. Exam significantly compromised by mixing artifact within the pulmonary arteries. Apparent right-sided filling defects are likely due to mixing artifact. A repeat PE protocol chest CT is recommended for improved opacification. Findings discussed with Dr. Brooks at time of dictation. 2. Evidence for pulmonary arterial hypertension with dilatation of the right heart chambers and evidence for right heart dysfunction. Findings have progressed since CT of May 06, 2021. This is likely due to underlying pulmonary fibrosis. 3. Moderate cardiomegaly and mild dilatation of the ascending aorta. 4. 4.5 x 2.2 x 1.7 cm groundglass opacity within the superior segment of the right lower lobe. This is similar to prior chest CT. This is indeterminate and a follow-up chest CT in 3 months is recommended to ensure resolution and to exclude the possibility of an underlying pulmonary lesion. ACT 112: Negative or not required by law. Electronically signed by: aMtt King M.D. 08/17/2022 8:54 AM Venous Doppler Study 08/17/22 08:52 BILATERAL LOWER EXTREMITY VENOUS DOPPLER CLINICAL HISTORY: Possible pulmonary emboli. r/o DVT COMPARISON STUDY: No previous studies for comparison. TECHNIQUE: Sonography of the deep venous system of the bilateral lower extremities was performed. Compression and augmentation were evaluated. FINDINGS: The bilateral common femoral, superficial femoral and popliteal veins were compressible. Augmentation was normal. Flow was shown within the deep calf vessels. IMPRESSION: No evidence of deep venous thrombus within the bilateral lower extremities. ACT 112: Negative or not required by law. Electronically signed by: Matt King M.D. 08/17/2022 9:53 AM Chest CTA 08/17/22 11:34 CT ANGIOGRAPHY OF THE CHEST, PULMONARY EMBOLUS PROTOCOL CLINICAL HISTORY: Possible pulmonary embolus. Shortness of breath. COMPARISON STUDY: Chest CT August 16, 2022. TECHNIQUE: Following IV administration of 115 mL of Optiray, helical axial images of the chest were obtained utilizing the pulmonary embolus protocol. Maximal intensity projections and sagittal and coronal reformats were viewed on an independent 3D workstation. IV contrast was administered without complication. Automated exposure control was utilized for the study. A dose lowering technique was utilized adhering to the principles of ALARA. CT DOSE: 504.24 mGycm FINDINGS: This study remains compromised by mixing artifact. Apparent filling defects within right-sided pulmonary arteries are likely due to mixing artifact. The appearance is similar to prior CT. Cardiomegaly is again noted with dilatation of the right heart chambers and evidence for right heart dysfunction with dilatation of the IVC and hepatic veins. Dilatation of the ascending aorta is unchanged. No pneumothorax or pleural effusion is present. Pulmonary fibrosis is again noted. A ground glass opacity within the right lower lobe is unchanged. The appearance of the chest is unchanged. IMPRESSION: 1. Exam compromised by mixing artifact. Apparent filling defects within right- sided pulmonary arteries likely represent mixing artifact. Pulmonary emboli are considered less likely but cannot be completely excluded. Findings discussed with Dr. Brooks at time of dictation. 2. Evidence for pulmonary arterial hypertension with dilatation of the right heart chambers and evidence for right heart dysfunction. This is likely due to underlying pulmonary fibrosis. 3. 4.5 x 2.2 x 1.7 cm ground glass opacity within the right lower lobe. This is indeterminate. A follow up chest CT in 3 months is recommended. ACT 112: Negative or not required by law. Electronically signed by: Matt King M.D. 08/17/2022 3:34 PM Chest CTA 08/22/22 08:41 CT ANGIOGRAPHY OF THE CHEST CLINICAL HISTORY: w/ delayed contrast; for Pulmonary Embolism. COMPARISON STUDY: Chest CT July 24, 2022, August 16, 2022 and August 17, 2022. TECHNIQUE: Helical axial images of the chest were obtained following intravenous injection of 120 cc of Optiray 320 IV. Sagittal and coronal reconstructed reviewed as well as maximal intensity projections on an independent 3-D workstation. Automated exposure control was utilized for the study. A dose lowering technique was utilized adhering to the principles of ALARA. FINDINGS: No central or lobar pulmonary emboli are identified. The subsegmental and subsegmental pulmonary arteries are suboptimally assessed due to respiratory motion and suboptimal opacification. However, pulmonary arterial opacification is significantly improved when compared to prior CTA of August 17, 2022. Dilatation of the ascending aorta, measuring 4.3 cm is unchanged. There is moderate dilatation of the central pulmonary arteries. Right heart chambers are dilated with straightening of the interventricular septum. There is no pneumothorax or pleural effusion. Evidence for interstitial lung disease is again noted. Subpleural reticulation and groundglass opacity and honeycombing is present. Previously described groundglass opacity within the right lower lobe is better depicted on prior CT. Slight increased ground glass opacity within the lungs is noted. No confluent consolidation is present. No acute fractures within the bony thorax. Visualized portions of the upper abdomen are unremarkable. IMPRESSION: 1. No central or lobar pulmonary emboli. Segmental and subsegmental pulmonary arteries suboptimally assessed, as described above. Overall, opacification of pulmonary arteries is significantly improved when compared to prior CTA. Apparent right-sided filling defects are prior CTA were artifactual. 2. Pulmonary fibrosis. Subtle ground glass opacity within the lungs could reflect a superimposed infectious process. 3. Dilatation of the central pulmonary arteries and right heart chambers. The findings indicate pulmonary arterial hypertension with elevated right heart pressures. ACT 112: Negative or not required by law. Electronically signed by: Matt King M.D. 08/22/2022 11:00 AM Chest X-Ray 08/31/22 15:50 SINGLE VIEW CHEST CLINICAL HISTORY: Hypoxia. FINDINGS: An AP, portable, upright chest radiograph is compared to study dated 08/16/2022 and correlated with chest CT dated 08/22/2022. The heart is enlarged. There is no clear radiographic evidence of congestive failure. Findings of chronic interstitial lung disease with fibrotic change in the right upper lung is similar to previous. There is no evidence of superimposed airspace consolidation or large pleural effusion. No pneumothorax is seen. The skeletal structures are osteopenic. The bony thorax is grossly intact. Calcific tendinopathy is noted in the right shoulder. IMPRESSION: Cardiomegaly with changes of chronic interstitial/fibrotic lung disease as above. This is similar to previous with no evidence of superimposed airspace consolidation or large pleural effusion. ACT 112: Negative or not required by law. Electronically signed by: Slim Carlisle M.D. 08/31/2022 4:33 PM
[2022-09-01] MEDS: LEVALBUTEROL HCL 0.63 MG/3 ML NEB INH PRN (15:34)
[2022-09-02] MEDS: LEVOTHYROXINE SODIUM 88 MCG TABLET PO SCH (05:41)
[2022-09-02] MEDS: FLUTICASONE PROPIONATE NA SPR 16 GM BTL SCH (08:57)
[2022-09-02] MEDS: predniSONE 10 MG TABLET PO SCH (08:58)
[2022-09-02] MEDS: HEPARIN SOD 5,000 UNIT/0.5 ML VIAL SQ SCH (08:58)
[2022-09-02] MEDS: MAGNESIUM OXIDE 400 MG TAB PO SCH (08:58)
[2022-09-02] MEDS: METOPROLOL TARTRATE 25 MG TAB PO SCH (08:58)
[2022-09-02] MEDS: CETIRIZINE HCL 10 MG TABLET PO SCH (08:58)
[2022-09-02] MEDS: CYANOCOBALAMIN (B-12) 500 MCG TABLET PO SCH (08:58)
[2022-09-02] MEDS: ADVANCED PROBIOTIC 1250 MG CAPSULE PO SCH (08:58)
[2022-09-02] MEDS: acetaZOLAMIDE 250 MG TAB PO SCH (08:58)
[2022-09-02] MEDS: CITALOPRAM 20 MG TAB PO SCH (08:59)
[2022-09-02] MEDS: FUROSEMIDE 80 MG TAB PO SCH (08:59)
[2022-09-02] MEDS: INSULIN ASPART PER UNIT SC SCH ×2 (09:04→12:41)
[2022-09-02] MEDS: BENZONATATE 100 MG CAPSULE PO PRN (09:11)
[2022-09-02] MEDS: POTASSIUM CHLORIDE CRTAB 20 MEQ TABCR PO SCH (09:11)
--- NOTE | 2022-09-02 09:48 | Pharmacy Report ---
Pharmacy Glycemic Short Note 2 - Date of Service September 02, 2022 - Glycemic Short BSG Results (Last 24 hours): 09/01/22 09/01/22 09/01/22 12:09 17:12 20:26 POC Glucose 232 H 184 H 210 H 09/02/22 09/02/22 09/02/22 07:58 07:59 08:38 POC Glucose 69 L* 64 L* 116 H OUTPATIENT ANTIDIABETIC REGIMEN: * Lantus 10 units SC daily * Glipizide 10mg PO daily * Metformin 2gm PO daily * HbA1C: 12.3% (07/24/22) ASSESSMENT: 120: * Patient received total of 51 units of insulin yesterday, of which only 5 units were basal insulin * Fasting BSG low at 64 mg/dL - treated per hyperglycemia protocol and given 15 gm CHO, recheck was 116 mg/dL * AM basal insulin discontinued this morning. Unclear if dose is contributing to lower fasting BSG, but will d/c and trial no basal. She only got 2 units of insulin at HS time last night of novolog so likely unrelated to low fasting 09/01: * Ale received a total of 40 units of insulin yesterday, 5 units basal + 35 units bolus. BSGs were: [phone] mg/dL. * Fasting BSG was 84 mg/dL this AM. Lantus already administered this AM so will discontinue it and have pharmacist follow up tomorrow AM to reassess basal needs. * Unsure of reason for elevated BSG at HS last evening. Assuming this is an outlier. Therefore, no changes to Novolog today. 08/31: * BSGs stable on current regimen [phone] mg/dL * Fasting 90 mg/dL this AM, continue 5 units of lantus qAM * Continues on prednisone 10 mg, continue current novolog parameters 08/19: * Pt is a 57 YOF admitted with acute on chronic respiratory failure- questionable PE. History of DM2 on insulin and PO medications at home. Pharmacy consulted to assist with glycemic management. * BSGs [phone]/dL the last 24h. Fasting is within goal range at 114 (102mg/dL yesterday). Patient received 8 units of basal and 9 units of bolus insulin yesterday. * Tolerating a diet, on prednisone 10mg PO daily, and a heparin drip (in D5W). * Plan to continue Lantus 8 units daily given well controlled fasting BSGs. Novolog tightened to 45/15 at dinner/HS and 30/10 with breakfast and lunch given higher BSGs earlier in the day followed by significant drop at night. PLAN FOR INPATIENT GLYCEMIC CONTROL: * Hold outpatient oral diabetes medications * Basal insulin * Hold * Bolus insulin * NovoLog per scale ACHS or Q6hrs while NPO * Goal Range: Low 110 mg/dL - High 140 mg/dL * Correction Factor: 35 mg/dL/unit with breakfast and 40 mg/dL/unit with lunch, dinner, HS * Nutritional / Prandial insulin per carb ratio of 1 unit per 2.5 grams CHO consumed at breakfast 1 unit per 5 grams CHO consumed at lunch, dinner and HS
[2022-09-02] MEDS: LEVALBUTEROL HCL 0.63 MG/3 ML NEB INH PRN (12:21)
--- NOTE | 2022-09-02 12:24 | Discharge Summary ---
Date of Service September 02, 2022 Admission HPI Per Admitting Provider 57-year-old lady with PMH of T2DM, chronic hypoxemic respiratory failure on 3 L oxygen at home, HLD, hypothyroidism, hyponatremia, ILD, hypertension, pulmonary hypertension, morbid obesity, immunosuppression due to chronic steroid use presented to the ED/3 with complaint of acute trouble breathing. Patient had COVID in April 2021 complicated with interstitial lung disease. Per patient, she started having some trouble breathing 1 day ago prior to arrival, and it worsened significantly on the day of arrival, occurring with minimal exertion and even at rest. At home her saturation was 80% on 3 L at rest, was not improved much on 6 L by EMS, required 15 L oxygen by oxygen mask when in the ED to maintain saturation above 90%. Patient also reports multiple episodes (upwards of 5-10 of diarrhea) since 1 w ramona [employer]. Patient was recently discharged from the hospital 2 weeks ago. Patient also reports some drowsiness and being weak. Patient denies any belly pain or fever. Patient denies any headache or sore throat or chest pain or palpitation or acute changes in her bladder habits. Patient denies nausea or vomiting. Patient denies smoking/alcohol use/recreational drug use. 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 Medications were discussed and reviewed with the patient. Patient takes prednisone 10 Mg daily. Plan of care discussed with the patient. Admission Exam Per Admitting Provider GENERAL: Alert and oriented x3. NAD, on 15 L via OM HEENT: No pallor, no icterus. Pupils equal, round and reactive to light. Oral mucosa moist. NECK: No JVD, no neck masses. HEART: S1 and S2 heard. Regular rate and rhythm. No murmur, no gallop. RESPIRATORY SYSTEM: Normal AP diameter. No accessory muscle use. No wheezing, crackles diffuse and bilateral. ABDOMEN: Soft, bowel sounds present, nontender, no distention. CENTRAL NERVOUS SYSTEM: No facial droop. Speech is clear. Obeys simple commands. Moves extremities. EXTREMITIES: No edema, no erythema seen. Rt leg w/ ruptured blister, doesn't look infective. Principal Diagnosis Acute on chronic respiratory failure ILD Possible pneumonia Discharge Exam Gen: WD/WN, NAD, sitting in bedside chair, A&Ox3 HEENT: Normocephalic, atraumatic, conjunctivae moist, sclerae anicteric, mucous membranes moist Lung: Normal respiratory effort; diminished breath sounds, no wheezes/rales/rhonchi Heart: Regular rate, regular rhythm, no murmurs, rubs, or gallops Abdomen: Soft, NT, ND +BS x 4 Extremities: no edema Skin: Warm, no rash Discharge Data Allergies Allergy/AdvReac Type Severity Reaction Status Date / Time No Known Allergies Allergy Verified 08/17/22 02:10 Consultations 08/17/22 00:45 ED Decision to Admit Stat 08/17/22 02:08 Consult 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 Routine Ordered Studies 08/16/22 22:34 CT angio chest PE protocol Urgent 08/17/22 08:52 US venous doppler LE BI Routine 08/17/22 11:34 CT angio chest PE protocol Routine 08/22/22 08:41 CTA chest w con [CT angio chest w con] Routine Hospital Course (1) Acute and chronic respiratory failure with hypoxia: (2) Diabetes: (3) Interstitial lung disease: (4) Acute and chronic respiratory failure: (5) Chronic respiratory failure with hypoxia: (6) Cor pulmonale: Plan This is a 57-year-old lady with PMH of T2DM, chronic hypoxemic respiratory failure on 3 L oxygen at home, HLD, hypothyroidism, hyponatremia, ILD, hypertension, pulmonary hypertension, morbid obesity, immunosuppression due to chronic steroid use presented to the ED with complaint of acute trouble breathing. Patient had COVID in April 2021 complicated with interstitial lung disease. Was managed for Acute on chronic respiratory failure multifactorial in setting of post COVID fibrotic lung disease,possible pneumonia.,ILD Was evaluated by pulmonology. For post COVID fibrotic lung disease, Pulm recommends continuing prednisone 10 mg daily but taper over the next 2 [address] PE on presentation noted artifact vs PE. She was initially started on heparin drip for possible PE Repeat CT PE ruled out PE and heparin drip was stopped Noted to have elevated troponin on admission likely due to demand ischemia due to hypoxia. For pulmonary hypertension 2D echo from 08/17/22 with Right ventricle is severely dilated, RV systolic function is severely reduced, right atrium is severely dilated. Right ventricular systolic pressure greater than 60 mmHg. Ejection fraction 65 to 70%. Flattened septum consistent with right pressure/volume overload. Continue lasix 80mg PO BIS upon discharge as well as Diamox 1,000mg BID. Will need further work-up at a pulmonary hypertension center of excellence ([facility] or [facility]) possibly including right heart cath, VQ scan, etc. Also with previous diagnosis of DEVON intolerant to CPAP. Recommend repeating outpatient sleep study. Weight loss recommended. Keep oxygen saturations at or about 90%. Does have some desaturation with exertion but recovers with time. Currently saturating around 91% on 5-6L NC O2. Started on potassium supplement of 40 mill equivalents twice daily to take while on Lasix and beta-radha switched from metoprolol succinate to metoprolol tartrate 25 mg twice daily. Continue all other medications as previously taken. Noted hyponatremia with admitting sodium of 130, which appears to be a chronic condition and close to baseline. Treated for UTI. Grew E. coli in urine culture and has since completed antibiotic course. No longer experiencing urinary symptoms. Had diarrhea earlier this week that is since resolved. Stool PCR negative. Continue loperamide as needed. Patient to follow-up with PCP and establish with Dr. Grant of pulmonology group. Went over instructions in detail with patient. Total Time Total Time Spent Total Time Spent (In Minutes): 70 Total Time Includes: Examination of the Patient, Discharge Planning and Medication Reconciliation Discharge Plan Discharge Items Patient Disposition: Transfer [facility] Reason For Visit: SOB Discharge Diagnosis: Acute on chronic respiratory failure ILD Possible pneumonia Condition on Discharge: Good Activity: Resume your previous activity Non-emergency contact: Primary Care Provider Call non-emergency contact if: you have any medication questions, your symptoms worsen and you have a fever Follow-up/Referrals: Liborio Garcia MD [Primary Care Provider] - Diet: Heart Healthy Addtl Attending Provider Instructions: You were admitted for shortness of breath in setting of multiple contributing factors: post-covid fibrotic lung disease, pulmonary hypertension seen on echocardiogram, possible sleep disorder. For post-COVID fibrotic lung disease: * continue prednisone 10mg daily for now. Pulmonary service recommending taper over the next 2-3 months For pulmonary hypertension: * volume status has improved with diuresis- plan to continue Lasix as well as Diamox * likely to need further workup at pulmonary hypertension center [facility] excellence ([facility] or [facility]) For possible sleep disorder: * Repeat outpatient sleep study * Weight loss recommended For chronic respiratory failure: * keep oxygen saturations at or about 90% MEDICATION CHANGES: New medications: Potassium supplement 40 meq twice daily Metoprolol tartrate 25mg twice daily Stop taking: Metoprolol succinate 100mg SUMMARY OF TEST RESULTS: Transthoracic echocardiogram (08/17/22): Right ventricle is severely dilated, RV systolic function is severely reduced, right atrium is severely dilated. Right ventricular systolic pressure greater than 60 mmHg. Ejection fraction 65 to 70%. Flattened septum consistent with right pressure/volume overload. RECOMMENDATIONS FOR FOLLOW-UP: Follow up with PCP and Dr. Almanzar (pulmonology) upon discharge from [facility]. OTHER INSTRUCTIONS: Seek medical attention if you have: * temperature above 101 * chest pain or trouble breathing * abdominal pain, nausea, vomiting * diarrhea, dark stools or bloody stools * any unanswered questions or concerns Call 911 if symptoms are severe. Please take good care of yourself. Call if you have any questions or problems. You can reach a [facility] hospitalist on duty at [facility] 24 hours a day by calling [phone]. Shira Morales PA-C [facility] Hospitalist Pending Studies at Discharge: No Stand-Alone Forms: My [facility] Skilled Items Patient informed of condition?: Yes DNR: No Discharge Level of Care: Skilled Communicable Disease: No Discharge Prognosis: Stable Lines: None Urinary Catheter: No Medications and DC Order Prescriptions: New cetirizine 10 mg Tablet 10 mg PO QAM Qty: 30 0RF ergocalciferol (vitamin D2) 1,250 mcg (50,000 unit) Capsule 50,000 unit PO We@0900 Qty: 10 0RF fluticasone propionate 50 mcg/actuation [place],Suspension 2 spray NA BID Qty: 16 0RF metoprolol tartrate 25 mg Tablet 25 mg PO BID Qty: 60 0RF Continued prednisone 10 mg tablet 10 mg PO DAILY Qty: 30 0RF albuterol sulfate 2.5 mg /3 mL (0.083 %) Solution For Nebulization 2.5 mg NEB Q6R PRN (Reason: shortness of breath or wheezing) Qty: 90 1RF (DME) blood-glucose meter [OneTouch Verio Meter] Misc See Rx Instructions .Route Qty: 1 0RF Rx Instructions: As directed citalopram 10 mg tablet 10 mg PO QAM Qty: 30 0RF glipizide 10 mg tablet extended release 24hr 10 mg PO QDD Qty: 30 0RF Rx Instructions: take 30 min before a meal cyanocobalamin (vitamin B-12) [Vitamin B-12] 1,000 mcg Tablet 1,000 mcg PO DAILY Qty: 30 0RF (DME) OneTouch Verio test strips Strip See Rx Instructions .Route Qty: 100 1RF Rx Instructions: As directed levothyroxine 88 mcg tablet 88 mcg PO DAILYBB Qty: 30 0RF potassium chloride 20 mEq Tablet,Er Particles/Crystals 40 meq PO BID Qty: 120 0RF magnesium oxide 400 mg (241.3 mg magnesium) Tablet 400 mg PO BID Qty: 60 0RF furosemide 80 mg Tablet 80 mg PO BID17 Qty: 60 0RF benzonatate 100 mg capsule 100 mg PO TID PRN (Reason: Cough) Qty: 90 0RF Rx Instructions: PER PT "NOT STARTED YET". codeine-guaifenesin [Guaifenesin AC] 10-100 mg/5 mL Liquid 10 ml PO Q6H PRN (Reason: Cough) Qty: 120 0RF albuterol sulfate 90 mcg/actuation Hfa Aerosol Inhaler 2 puff INHALATION Q6H PRN (Reason: Wheezing) Qty: 6.7 0RF metformin 500 mg tablet extended release 24 hr 2,000 mg PO QDD 30 Days Qty: 120 0RF rosuvastatin 5 mg tablet 5 mg PO 2XWK Qty: 10 0RF Rx Instructions: TAKES ON MONDAY AND WEDNESDAYS. insulin glargine [Lantus Solostar U-100 Insulin] 100 unit/mL (3 mL) insulin pen 10 unit subcut DAILY Qty: 15 0RF (DME) pen needle, diabetic [Pen Needle] 32 gauge x 5/32" needle See Rx Instructions .Route Qty: 100 0RF Rx Instructions: As directed (DME) lancets [OneTouch Delica Lancets] 33 gauge misc See Rx Instructions .Route Qty: 100 1RF Rx Instructions: As directed Probiotic Acidophilus Biobeads 12.9 mg (2 billion cell) Tablet,Delayed Release (Dr/Ec) 1 tab PO DAILY Qty: 30 0RF (DME) Oxygen Home Liters Per Minute See Rx Instructions .Route Qty: 1 0RF Rx Instructions: 2LPM continuously acetazolamide 250 mg tablet 1,000 mg PO BID Qty: 240 0RF Discontinued metoprolol succinate 100 mg tablet extended release 24 hr 100 mg PO QAM Discharge Orders: Discharge Order (Routine); Ordered 09/02/22 Ordered By: Shira Morales Admission Data Admit Date/Time: 08/17/22 02:08 Attending Provider: Radha Teixeira I. Admit Provider: Maico Lantigua Primary Care Provider: Liborio Garcia Other Providers: [place] ; Trinh Jang at [place] ; Maico Lantigua ; Roseann Brooks ; Shruthi Stoll ; Shira Morales Other Interventions: Discharge Summary Assessment (RN) Last Done: 09/02/22 11:36 Supervising Physician Co-Signing Physician Notes Agree with findings and plans as detailed by Shira Dudley PA-C
== END 2022-09-02 16:31 | DRG 189 ==
LOC: ED 21:56 → 1E 08-17 02:08 → SUATTDRO 08-17 02:08 → 1E 08-17 03:15 → 2S 08-20 14:33 → 3W 08-26 20:44
DX: N17.9 Acute kidney failure, unspecified; Z99.81 Dependence on supplemental oxygen; Z87.891 Personal history of nicotine dependence; I27.20 Pulmonary hypertension, unspecified; E66.9 Obesity, unspecified; D84.821 Immunodeficiency due to drugs; I27.81 Cor pulmonale (chronic); Z79.84 Long term (current) use of oral hypoglycemic drugs; J84.9 Interstitial pulmonary disease, unspecified; N39.0 Urinary tract infection, site not specified; Z79.52 Long term (current) use of systemic steroids; E11.9 Type 2 diabetes mellitus without complications; U09.9 Post COVID-19 condition, unspecified; E87.6 Hypokalemia; J18.9 Pneumonia, unspecified organism; Z68.32 Body mass index [BMI] 32.0-32.9, adult; I24.8 Other forms of acute ischemic heart disease; E87.1 Hypo-osmolality and hyponatremia; B96.20 Unspecified Escherichia coli [E. coli] as the cause of diseases classified elsewhere; J96.21 Acute and chronic respiratory failure with hypoxia; Z79.4 Long term (current) use of insulin

== ENCOUNTER 2022-09-29 00:53 | Inpatient (IN) ==
[2022-09-29] MEDS ORDERED: ALBUT/IPRATROP 3MG/0.5MG NEB 3 ML VIAL ONE (01:14)
[2022-09-29] MEDS ORDERED: ALBUT/IPRATROP 3MG/0.5MG NEB 3 ML VIAL INH STA (01:19)
[2022-09-29] MEDS ORDERED: methylPREDNISolone 125 MG/2 ML VIAL IV STA (01:19)
[2022-09-29 01:28] LABS: Basophils # (auto) 0.03 K/uL (0-0.2); Basophils % (auto) 0.4 %; Eosinophils # (auto) 0.05 K/uL (0-0.50); Eosinophils % (auto) 0.6 %; Hematocrit (blood only) 42.5 % (37.0-47.0); Immature Granulocytes # (auto) 0.14 K/uL (0.01-0.20); Immature Granulocytes % (auto) 1.7 %; Lymphocytes # (auto) 0.84 K/uL (1.2-3.4); Lymphocytes % (auto) 10.5 %; Mean Corpuscular Hemoglobin 27.9 pg (25.0-34.0); Mean Corpuscular Hgb Conc 32.9 g/dL (32.0-36.0); Mean Corpuscular Volume 84.7 fL (80.0-100.0); Mean Platelet Volume 10.2 fL (9.4-12.4); Monocytes # (auto) 0.93 K/uL (0.11-0.59); Monocytes % (auto) 11.6 %; Neutrophils # (auto) 6.03 K/uL (1.40-6.50); Neutrophils % (auto) 75.2 %; Nucleated RBC # (auto) 0.13 K/uL (0-0.12); Nucleated RBC % (auto) 1.6 %; Platelet Count 207 K/uL (130-400); RDW Coefficient of Variation 21.2 % (11.5-14.5); RDW Standard Deviation 62.7 fL (36.4-46.3); Red Blood Count 5.02 M/uL (4.20-5.40); White Blood Count 8.02 K/ul (4.8-10.8)
[2022-09-29 01:42] LABS: Albumin Level 3.5 gm/dl (3.4-5.0); BUN Creatinine Ratio 19.3 (10-20); Bilirubin,Total 1.6 mg/dl (0.2-1.0); Calcium 9.1 mg/dl (8.5-10.1); Creatinine Clr Calc Pharmacy 76.9 ml/min; Est GFR (African American) 85.7 ml/min; Globulin 3.6 gm/dl (2.5-4.0); Potassium 4.6 mmol/L (3.5-5.1); Total Protein 7.1 gm/dl (6.0-8.3)
[2022-09-29 01:51] LABS: Anisocytosis Present; Polychromasia 1+
[2022-09-29 02:11] LABS: Troponin I High Sensitivity 68.6 pg/ml (0-14)
[2022-09-29 02:34] LABS: Adenovirus PCR Not Detected (NotDetected); Bordetella parapertussis PCR Not Detected (NotDetected); Bordetella pertussis PCR Not Detected (NotDetected); Chlamydia pneumoniae PCR Not Detected (NotDetected); Coronavirus 229E PCR Not Detected (NotDetected); Coronavirus CoV-2 (COVID19)PCR Not Detected (NotDetected); Coronavirus HKU1 PCR Not Detected (NotDetected); Coronavirus NL63 PCR Not Detected (NotDetected); Coronavirus OC43PCR Not Detected (NotDetected); Human Metapneumovirus PCR Not Detected (NotDetected); Influenza A PCR Not Detected (NotDetected); Influenza B PCR Not Detected (NotDetected); Mycoplasma pneumoniae PCR Not Detected (NotDetected); Parainfluenza Virus 1 PCR Not Detected (NotDetected); Parainfluenza Virus 2 PCR Not Detected (NotDetected); Parainfluenza Virus 3 PCR Not Detected (NotDetected); Parainfluenza Virus 4 PCR Not Detected (NotDetected); Respiratory Syncytial VirusPCR Not Detected (NotDetected); Rhinovirus/Enterovirus PCR Not Detected (NotDetected)
[2022-09-29] MEDS ORDERED: GLUCOSE 40% GEL 15 GM TUBE PO PRN (06:24)
[2022-09-29] MEDS ORDERED: GLUCOSE 10 TAB/TUBE PO PRN (06:24)
[2022-09-29] MEDS ORDERED: ACETAMINOPHEN 325 MG TAB PO PRN (06:24)
[2022-09-29] MEDS ORDERED: LOPERAMIDE HCL 2 MG CAP PO PRN (06:24)
[2022-09-29] MEDS ORDERED: ALBUTEROL HFA 8 GM INHALER INH PRN (06:24)
[2022-09-29] MEDS ORDERED: ALBUTEROL 0.083% NEBU SOLN 3 ML VIAL NEB PRN (06:24)
[2022-09-29] MEDS ORDERED: POLYETHYLENE (MIRALAX) 17 GM PACK PO PRN (06:24)
[2022-09-29] MEDS ORDERED: LORazepam 0.5 MG TAB PO PRN (06:24)
[2022-09-29] MEDS ORDERED: CARBOHYDRATES FOR HYPOGLYCEMIA PO PRN (06:24)
[2022-09-29] MEDS ORDERED: NITROGLYCERIN SL 0.4 MG/TAB TAB SL PRN (06:24)
[2022-09-29] MEDS ORDERED: BENZONATATE 100 MG CAPSULE PO PRN (06:24)
[2022-09-29] MEDS ORDERED: GLUCAGON FOR INJ 1 MG VIAL SQ PRN (06:24)
[2022-09-29] MEDS ORDERED: DEXTROSE 50% 50 ML SYRINGE IV PRN (06:24)
--- NOTE | 2022-09-29 06:27 | XRay Report ---
XR chest 1V portable CLINICAL HISTORY: Dyspnea. COMPARISON STUDY: Chest CT August 22, 2022 and chest radiograph August 31, 2022. FINDINGS: There is no pneumothorax or pleural effusion. Cardiomegaly is unchanged. Interstitial thick ening is similar to prior exams and represents interstitial lung disease. There is no consolidation t o suggest pneumonia. There has been no significant change in appearance of the chest. IMPRESSION: 1. No acute cardiopulmonary findings. No change in appearance of the chest. 2. Stable cardiomegaly and interstitial thickening consistent with interstitial lung disease. ACT 112: Negative or not required by law. Electronically signed by: Matt King M.D. 09/29/2022 6:26 AM
--- NOTE | 2022-09-29 06:48 | Emergency Department Note ---
Impression & Plan Acute and chronic respiratory failure, Pulmonary hypertension, Interstitial lung disease, Elevated troponin ED Provider Note CHIEF COMPLAINT: Shortness of breath HISTORY OF PRESENT ILLNESS: This 57-year-old female patient with a longstanding history of interstitial lung disease, pulmonary hypertension diabetes, PE presents to the emergency department with complaints of shortness of breath. The patient is a resident at [facility] and became acutely hypoxic today. Patient states she could not sleep and developed some chest tightness. She became quite agitated. She states the physician at the senior living gave her Ativan and a nebulizer treatment. She does wear home oxygen. She was recently referred to the transplant team at [facility] and follows with Dr. Meléndez locally. REVIEW OF SYSTEMS: A review of systems was performed with positives and pertinent negatives listed in the history of present illness. 10 systems were reviewed and are otherwise negative. ALLERGIES: see below MEDICATIONS: see below PMH: see below SOCIAL HISTORY: see below DDx:Reactive airway disease, pneumonia, pneumothorax, COPD, CHF, infections, cardiac ischemia, pulmonary embolism, musculoskeletal, gastrointestinal, as well as other pathologies. PHYSICAL EXAM: Vital signs reviewed. General: Somewhat ill-appearing 57-year-old female, in no significant distress. HEENT: No scleral icterus, PERRLA, neck supple. Atraumatic. Cardiovascular: Regular rate and rhythm, no extra sounds. Pulmonary: Clear to auscultation bilaterally, increased work of breathing, on CPAP Abdomen: Soft, nontender, nondistended, positive bowel sounds. Musculoskeletal: Atraumatic, no peripheral edema. Neurologic: Patient awake alert and oriented x 3 Skin: Warm, dry, no rash EMERGENCY DEPARTMENT COURSE/MDM: This patient was evaluated and appeared to be in no significant distress. IV access was obtained and laboratory work was drawn. The patient was placed on CPAP as she was unable to tolerate BiPAP per respiratory therapy. Patient's breathing improved significantly. Chest x-ray was performed and reveals chronic interstitial lung disease. She was recently started on a prednisone taper, although only 2.5 mg less daily than her baseline of 10 mg. Patient was given 40 mg of IV Solu-Medrol and an hour-long DuoNeb treatment. Respiratory BioFire is negative. Patient is noted to be mildly hyponatremic at 127. Patient's high-sensitivity troponin is elevated at 68.6. EKG reveals no evidence of acute ST segment change but there is persistent T wave abnormality in the inferior and lateral leads. I do suspect this is an acute exacerbation of the patient's chronic lung disease. Given her hypoxia to 75% at the nursing facility, and sats just above 90% on CPAP, patient's case was discussed with the hospitalist service for admission and further management. Patient expressed understanding of the plan and agreed. MONITORING: An order for cardiac monitoring was placed and the patient is noted to be in a normal sinus rhythm at 84 beats per minute. RADIOLOGY: Chest x-ray to my interpretation reveals EKG: To my interpretation reveals a normal sinus rhythm with sinus arrhythmia, right atrial enlargement, right axis deviation right ventricular hypertrophy with repolarization abnormality. T wave abnormality in the inferior and lateral leads. No significant changes to my comparison of previous dated August 17, 2022 DISPOSITION: Admission I have personally spent greater than 35 minutes of critical care time in the direct management of this patient. This includes bedside care, interpretation of diagnostic studies, and testing, discussion with consultants, patient, and family members, and other required patient management activities. This 35 minutes is in excess of all separately billable procedures. Past Med/Surg History Medical History Chronic respiratory failure with hypoxia 3L at baseline, 4L w/ exertion as of 05/2022 Cor pulmonale Diabetes Fibrotic lung diseases Hypersomnolence Hyponatremia Interstitial lung disease likeliest post Covid fibrosis; follows w/ Dr Cerna [facility] Obesity (BMI 30-39.9) Pneumonia due to COVID-19 virus Pulmonary hypertension Type 2 diabetes mellitus Family History Other Family history non-contributory Social History Smoking Status: Former smoker Hx Alcohol Use: No Hx Substance Use: No Preferred Language: [place] Communication Ability: Unable Service Advocate Contact Required: No Beliefs That Will Affect Care: None marital status: / Current Living Situation: Family Current Living Situation Comment: with son How many Children do You have: 1 Feels Safe at Home: Yes Assistive Devices: Nebulizer and Oxygen - Continuous Allergies Allergies Allergy/AdvReac Type Severity Reaction Status Date / Time No Known Allergies Allergy Verified 09/29/22 01:10 Home Meds Home Medications Medication Instructions Recorded Confirmed Saccharomyces boulardii 250 mg 250 mg PO BID17 09/29/22 09/29/22 capsule (Florastor) acetaminophen 325 mg tablet 650 mg PO Q6H PRN FEVER/PAIN 09/29/22 09/29/22 (Tylenol) albuterol sulfate 90 mcg/actuation 2 puff inhalation Q6H PRN 09/29/22 09/29/22 aerosol inhaler Wheezing/SOB budesonide-formoterol HFA 80 1 inh inhalation BID17 09/29/22 09/29/22 mcg-4.5 mcg/actuation aerosol inhaler (Symbicort) citalopram 20 mg tablet (Celexa) 20 mg PO DAILY 09/29/22 09/29/22 colestipol 1 gram tablet 1 g PO QID 09/29/22 09/29/22 ergocalciferol (vitamin D2) 1,250 50,000 unit PO WK 09/29/22 09/29/22 mcg (50,000 unit) capsule fluticasone propionate 50 2 spray NA BID17 09/29/22 09/29/22 mcg/actuation nasal spray,suspension loperamide 2 mg capsule 2 mg PO Q3H PRN Diarrhea 09/29/22 09/29/22 lorazepam 0.5 mg tablet 0.5 mg PO BID PRN Anxiety 09/29/22 09/29/22 nystatin 100,000 unit/mL oral 5 ml PO QID 09/29/22 09/29/22 suspension potassium chloride 20 mEq 40 meq PO BID17 09/29/22 09/29/22 tablet,extended release(part/cryst) prednisone 5 mg tablet 7.5 mg PO DAILY 09/29/22 09/29/22 Previous Rx's Medication Instructions Recorded Oxygen Home #1 ea 09/02/22 acetazolamide 250 mg tablet 1,000 mg PO BID #240 tabs 09/02/22 albuterol sulfate 2.5 mg/3 mL 2.5 mg (3 mL) NEB Q6R PRN 09/02/22 (0.083 %) solution for nebulization shortness of breath or wheezing #90 mL benzonatate 100 mg capsule 100 mg PO TID PRN Cough #90 caps 09/02/22 blood sugar diagnostic (OneTouch #100 ea 01/20/23 Verio test strips) blood-glucose meter (Attention SciencesTouch #1 ea 09/02/22 Verio Meter) cetirizine 10 mg tablet 10 mg PO QAM #30 tabs 09/02/22 codeine 10 mg-guaifenesin 100 mg/5 10 ml PO Q6H PRN Cough #120 mL 09/02/22 mL oral liquid (Guaifenesin AC) cyanocobalamin (vitamin B-12) 1,000 mcg PO DAILY #30 tabs 09/02/22 1,000 mcg tablet (Vitamin B-12) furosemide 80 mg tablet 80 mg PO BID17 #60 tabs 09/02/22 glipizide 10 mg tablet, extended 10 mg PO QDD #30 tabs 09/02/22 release 24 hr insulin glargine 100 unit/mL (3 10 unit (0.1 mL) subcut DAILY #15 09/02/22 mL) subcutaneous pen (Lantus mL Solostar U-100 Insulin) lancets 33 gauge (OneTouch Delica #100 ea 09/02/22 Lancets) levothyroxine 88 mcg tablet 88 mcg PO DAILYBB #30 tabs 09/02/22 metoprolol tartrate 25 mg tablet 25 mg PO BID #60 tabs 09/02/22 pen needle, diabetic 32 gauge x #100 ea 09/02/22 5/32" (Pen Needle) rosuvastatin 5 mg tablet 5 mg PO 2XWK #10 tabs 09/02/22 Results & Data (ED) Vital Signs Vital Signs - 24 hr 09/29/22 01:11 09/29/22 01:11 09/29/22 01:11 Temperature 36.7 C Temperature Source Oral Pulse Rate 82 Pulse Rate [Finger] Respiratory Rate 24 Respiratory Effort / Characteristics Labored Respiratory Depth Shallow Respiratory Pattern Agonal Blood Pressure 106/68 Blood Pressure Mean 80 Blood Pressure Position Lying Pulse Oximetry 88 L 88 L Oxygen Delivery Method Non-rebreather Non-rebreather Non-rebreather Oxygen Flow Rate 15 15 15 Fraction of Inspired Oxygen Sepsis Recent Fever Within 48 Hours No Sepsis New/Unexplained Change in Mental Status No Sepsis Action Taken by Nursing No Action Required 09/29/22 01:17 09/29/22 01:09 09/29/22 01:21 Temperature Temperature Source Pulse Rate 81 84 Pulse Rate [Finger] 82 Respiratory Rate 39 H 39 H Respiratory Effort / Characteristics Spontaneous Labored Spontaneous Labored Short of Breath Respiratory Depth Respiratory Pattern Tachypnea Blood Pressure Blood Pressure Mean Blood Pressure Position Pulse Oximetry 94 94 Oxygen Delivery Method CPAP Oxygen Flow Rate Fraction of Inspired Oxygen 70 70 Sepsis Recent Fever Within 48 Hours Sepsis New/Unexplained Change in Mental Status Sepsis Action Taken by Nursing 09/29/22 01:24 09/29/22 01:24 Temperature Temperature Source Pulse Rate 80 Pulse Rate [Finger] Respiratory Rate 24 Respiratory Effort / Characteristics Respiratory Depth Respiratory Pattern Blood Pressure Blood Pressure Mean Blood Pressure Position Pulse Oximetry 93 96 Oxygen Delivery Method CPAP CPAP Oxygen Flow Rate Fraction of Inspired Oxygen Sepsis Recent Fever Within 48 Hours Sepsis New/Unexplained Change in Mental Status Sepsis Action Taken by [facility] Medications Current Medication List: was personally reviewed by me Laboratory Data Attestation: I reviewed the patient's lab results. 09/29/22 01:05 09/29/22 01:05 Lab Results 09/29/22 09/29/22 09/29/22 Range/Units 01:05 01:05 01:26 WBC 8.02 (4.8-10.8) K/ul RBC 5.02 (4.20-5.40) M/uL Hgb 14.0 (12.0-16.0) g/dl Hct 42.5 (37.0-47.0) % MCV 84.7 (80.0-100.0) fL MCH 27.9 (25.0-34.0) pg MCHC 32.9 (32.0-36.0) g/dL RDW Std Deviation 62.7 H (36.4-46.3) fL RDW Coeff of Lulu 21.2 H (11.5-14.5) % Plt Count 207 (130-400) K/uL MPV 10.2 (9.4-12.4) fL Immature Gran % (Auto) 1.7 % Neut % (Auto) 75.2 % Lymph % (Auto) 10.5 % Grant % (Auto) 11.6 % Eos % (Auto) 0.6 % Baso % (Auto) 0.4 % Neut # (Auto) 6.03 (1.40-6.50) K/uL Lymph # (Auto) 0.84 L (1.2-3.4) K/uL Grant # (Auto) 0.93 H (0.11-0.59) K/uL Eos # (Auto) 0.05 (0-0.50) K/uL Baso # (Auto) 0.03 (0-0.2) K/uL Immature Gran # (Auto) 0.14 (0.01-0.20) K/uL Absolute Nucleated RBC 0.13 H (0-0.12) K/uL Nucleated RBC % (auto) 1.6 % Polychromasia 1+ Anisocytosis Present Sodium 127 L (136-145) mmol/L Potassium 4.6 (3.5-5.1) mmol/L Chloride 96 L (98-107) mmol/L Carbon Dioxide 23 (21-32) mmol/L Anion Gap 8 (3-11) BUN 17 (6-23) mg/dl Creatinine 0.88 (0.6-1.2) mg/dl Est Cr Clr Drug Dosing 76.9 ml/min Est GFR ( Amer) 85.7 ml/min Est GFR (Non-Af Amer) 74.0 ml/min BUN/Creatinine Ratio 19.3 (10-20) Glucose 181 H (70-99(Fasting)) mg/dl Calcium 9.1 (8.5-10.1) mg/dl Magnesium 2.0 (1.7-2.4) mg/dl Total Bilirubin 1.6 H (0.2-1.0) mg/dl AST 18 (13-39) U/L ALT 22 (7-52) U/L Alkaline Phosphatase 110 H (34-104) U/L Troponin I High Sens 68.6 H* (0-14) pg/ml Total Protein 7.1 (6.0-8.3) gm/dl Albumin 3.5 (3.4-5.0) gm/dl Globulin 3.6 (2.5-4.0) gm/dl Albumin/Globulin Ratio 1.0 (0.9-2) Adenovirus (PCR) Not Detected (NotDetected) B. pertussis DNA (PCR) Not Detected (NotDetected) B.parapertussis DNA PCR Not Detected (NotDetected) C. pneumoniae DNA (PCR) Not Detected (NotDetected) Coronavirus OC43 (PCR) Not Detected (NotDetected) Coronavirus HKU1 (PCR) Not Detected (NotDetected) Coronavirus 229E (PCR) Not Detected (NotDetected) SARS-CoV-2 (PCR) Not Detected (NotDetected) Coronavirus NL63 (PCR) Not Detected (NotDetected) Human Metapneumovir PCR Not Detected (NotDetected) Influenza Type A (PCR) Not Detected (NotDetected) Influenza Type B (PCR) Not Detected (NotDetected) M. pneumoniae (PCR) Not Detected (NotDetected) Parainfluenza 1 (PCR) Not Detected (NotDetected) Parainfluenza 2 (PCR) Not Detected (NotDetected) Parainfluenza 3 (PCR) Not Detected (NotDetected) Parainfluenza 4 (PCR) Not Detected (NotDetected) RSV (PCR) Not Detected (NotDetected) Entero/Rhino (PCR) Not Detected (NotDetected) Administered Medications Discontinued Medications Albuterol (Albut/Ipratrop 3mg/0.5mg Neb 3 Ml Vial) Confirm Administered Dose 12 ml .ROUTE .STK-MED ONE Stop: 09/29/22 01:15 Last Admin: 09/29/22 01:17 Dose: 12 ml Documented By: ALEJANDRO Albuterol (Albut/Ipratrop 3mg/0.5mg Neb 3 Ml Vial) 12 ml INH ONE STA Stop: 09/29/22 01:20 Last Admin: 09/29/22 01:32 Dose: Not Given Documented By: CYDNEY Methylprednisolone (Methylprednisolone 125 Mg/2 Ml Vial) 40 mg IV NOW STA Stop: 09/29/22 01:20 Last Admin: 09/29/22 01:31 Dose: 40 mg Documented By: CYDNEY Imaging Data Radiologist's Impression: Chest X-Ray 09/29/22 01:19 XR chest 1V portable CLINICAL HISTORY: Dyspnea. COMPARISON STUDY: Chest CT August 22, 2022 and chest radiograph August 31, 2022. FINDINGS: There is no pneumothorax or pleural effusion. Cardiomegaly is unchanged. Interstitial thickening is similar to prior exams and represents interstitial lung disease. There is no consolidation to suggest pneumonia. There has been no significant change in appearance of the chest. IMPRESSION: 1. No acute cardiopulmonary findings. No change in appearance of the chest. 2. Stable cardiomegaly and interstitial thickening consistent with interstitial lung disease. ACT 112: Negative or not required by law. Electronically signed by: Matt King M.D. 09/29/2022 6:26 AM Discharge Plan Visit Data Chief Complaint: Shortness of Breath/Dyspnea Stated Complaint: sob ED Provider: Jen Warren Discharge Problem: Acute and chronic respiratory failure, Pulmonary hypertension, Interstitial lung disease, Elevated troponin Patient Disposition: Admitted As Inpatient Discharge Instructions Interventions: ED Discharge Assessment Last Done: 09/29/22 06:25 Acute and chronic respiratory failure Qualifiers: Respiratory failure complication: hypoxia Qualified Code(s): J96.21 - Acute and chronic respiratory failure with hypoxia
--- NOTE | 2022-09-29 07:04 | History and Physical Report ---
DATE OF ADMISSION: 09/29/2022. CHIEF COMPLAINT: Shortness of breath. HISTORY OF PRESENT ILLNESS: A 57-year-old female with past medical history significant for type 2 diabetes; chronic hypoxemic respiratory failure, on 4 liters oxygen at home; history of interstitial lung disease, thought to be from post-COVID; history of hypothyroidism; hyperlipidemia; chronic hyponatremia; hypertension; pulmonary hypertension; morbid obesity; immunosuppression due to chronic steroid use, currently living at [facility], presents with shortness of breath. The patient recently saw pulmonary on 09/23/2022, recommended to start on low-dose Symbicort twice daily and also trying to wean off steroid with 2.5 mg every 7 days until she is off prednisone completely, currently she is 7.5 mg prednisone as per the patient and to continue oxygen saturation to maintain saturation above 89% given pulmonary hypertension, and she was recommended to be evaluated at [facility] for evaluation for transplant candidacy and also to be evaluated at pulmonary hypertension clinic and also plan for sleep study. The patient says since last 4-5 days, she is getting more short of breath and progressively got worsened, that is the reason she came here. She has ongoing cough, which is similar to previous. She has sore throat. She seems to be using nystatin swish and swallow. Denies any fevers. Denies any chest pain, no nausea, no vomiting, no headache. When she stands up, she feels dizzy. No blurred visions, no runny nose, no nausea, no vomiting, no abdominal pain. She has chronic diarrhea, she is using colestipol and Imodium p.r.n. Normal bladder movements. She says she used to walk with a walker, but since last few days she is wheelchair bound. ALLERGIES: No known drug allergies. PAST MEDICAL HISTORY: As mentioned above. PAST SURGICAL HISTORY: Seems to be none. MEDICATIONS: Currently on Tylenol 650 mg p.o. q. 6 hours p.r.n., acetazolamide 1000 mg p.o. b.i.d., albuterol nebs q. 6 hours p.r.n., albuterol inhalation 2 puffs every 6 hours p.r.n., benzonatate 100 mg p.o. t.i.d. p.r.n., Symbicort 80/4.5 mcg inhalation 1 puff b.i.d., cetirizine 10 mg daily, Celexa 20 mg p.o. daily, guaifenesin AC 10 mL p.o. q. 6 hours p.r.n., colestipol 1 gram p.o. q.i.d., vitamin B12 1000 mcg p.o. daily, vitamin D 78496 units p.o. weekly, Flonase 2 sprays nasal b.i.d., Lasix 80 mg p.o. b.i.d., glipizide 10 mg p.o. daily, Lantus 10 units daily, levothyroxine 88 mcg p.o. daily, loperamide 2 mg p.o. q. 3 hours p.r.n., lorazepam 0.5 mg p.o. b.i.d. p.r.n., metoprolol tartrate 25 mg p.o. b.i.d., nystatin 5 mL p.o. q.i.d., potassium chloride 40 mEq p.o. daily, prednisone 7.5 mg p.o. daily, lovastatin 5 mg p.o. two times a week, Florastor 250 mg p.o. b.i.d., oxygen 4 liters all the time. FAMILY HISTORY: Significant for son has leukemia; father has [place], hypertension; mother has hypertension, Parkinson's disease. SOCIAL HISTORY: , currently living at [facility], quit smoking in 2007, smoked 1 pack a day for 20 years. Alcohol, generally drinks two standard drinks of alcohol per week. No drug use. REVIEW OF SYSTEMS: As per HPI. Rest of review of systems is negative. PHYSICAL EXAMINATION: GENERAL: The patient is obese, not in acute distress. VITAL SIGNS: Temperature 36.7, pulse 84, respiratory rate 24, blood pressure 106/68, oxygen 88% on nasal cannula, currently 96% on CPAP. HEENT: Pupils equal, round and reactive to light. Head atraumatic. NECK: No neck masses seen. CARDIOVASCULAR: S1 and S2 heard. Regular rate and rhythm. No murmur, no gallop. RESPIRATORY SYSTEM: Normal AP diameter. No accessory muscle use. Bilateral coarse rhonchi heard. No wheezing. ABDOMEN: Soft, bowel sounds present, nontender, no distention. CENTRAL NERVOUS SYSTEM: Alert and oriented. Speech is clear. No facial droop. Obeys simple commands. Moves extremities. EXTREMITIES: No edema, no erythema seen. LABORATORY DATA: WBC 8, hemoglobin 14, hematocrit 42.5, platelets 207. Sodium 127, potassium 4.6, chloride 96, bicarbonate 23, BUN 17, creatinine 0.8, serum glucose 181, calcium 9.1, magnesium 2, total bilirubin 1.6, AST 18, ALT 22, alkaline phosphatase 110. Troponin I high sensitivity 68. Respiratory BioFire negative. IMAGING DATA: Chest x-ray, chronic lung changes seen. ELECTROCARDIOGRAM: Normal sinus rhythm with sinus arrhythmia at the rate of 82, right atrial enlargement, right axis deviation, right ventricular hypertrophy. ASSESSMENT AND PLAN: This is a 57-year-old female who presents with shortness of breath. 1. Shortness of breath: History of interstitial lung disease post-COVID, history of cor pulmonale. She was recently started on symbiort and was tapering prednisone, currently on prednisone 7.5 mg daily. Possible ILD flare. Placed on IV Solu-Medrol 40 daily. Nebs around the clock and continue home nebs p.r.n. Continue home inhalers. Consult pulmonary in the a.m. 2. History of pulmonary hypertension with echo on 08/17/2022 that showed right ventricle is severely dilated. Right ventricular function is severely reduced. Right atrium is severely dilated. Right ventricular systolic pressure greater than 60. EF of 65% to 70%. Chronic right-sided heart failure: Currently continue with Diamox 1000 mg p.o. b.i.d. Will hold Lasix and potassium supplement as currently the patient has hyponatremia. Will monitor for any volume overload. Follow up with Pulmonary Hypertension Clinic at [facility] as recommended by Pulmonary. 3.. History of obstructive sleep apnea: Intolerant of CPAP in the past. Placed on CPAP in the ER, which will be continued. 4 Acute on. Chronic hyponatremia: Sodium is 127, baseline seems to be in 130s. Holding the Lasix with potassium supplement. Will follow the repeat labs. Restart Lasix as soon as possible. If not improving, will consult nephrology. 54. Diabetes: Continue home insulin. Holding home p.o. medication. Placed on sliding scale. Follow the blood sugar closely as placed on IV steroids. 7. Hyperlipidemia: Continue statin. 8. Sore throat: Possibly thrush, could not examine as patient on cpap currently. Continue home nystatin swish and swallow. 9. Hypertension: On metoprolol tartrate. Holding the diuretics. Monitor the blood pressure. 10. Depression: On citalopram. 11. Chronic diarrhea: On colestipol and loperamide p.r.n. 12. Deep venous thrombosis prophylaxis: Placed on Lovenox. DISPOSITION: Closely monitor in the tele. Level 1 full code as per my discussion with the patient. PT/OT prior to discharge. Social service to help with discharge planning. Job ID: [id number] [facility]
[2022-09-29] MEDS: ALBUT/IPRATROP 3MG/0.5MG NEB 3 ML VIAL NEB SCH ×4 (07:06→19:21)
[2022-09-29] MEDS: ENOXAPARIN INJ 40 MG/0.4 ML SYR SQ SCH ×2 (07:23→19:56)
[2022-09-29] MEDS: LEVOTHYROXINE SODIUM 88 MCG TABLET PO SCH (07:23)
[2022-09-29 07:52] LABS: Basophils # (auto) 0.02 K/uL (0-0.2); Basophils % (auto) 0.3 %; Hematocrit (blood only) 43.8 % (37.0-47.0); Hemoglobin 14.1 g/dl (12.0-16.0); Immature Granulocytes # (auto) 0.15 K/uL (0.01-0.20); Immature Granulocytes % (auto) 2.2 %; Lymphocytes # (auto) 0.57 K/uL (1.2-3.4); Lymphocytes % (auto) 8.5 %; Mean Corpuscular Hemoglobin 27.8 pg (25.0-34.0); Mean Corpuscular Hgb Conc 32.2 g/dL (32.0-36.0); Mean Corpuscular Volume 86.2 fL (80.0-100.0); Mean Platelet Volume 10.3 fL (9.4-12.4); Monocytes # (auto) 0.12 K/uL (0.11-0.59); Monocytes % (auto) 1.8 %; Neutrophils # (auto) 5.82 K/uL (1.40-6.50); Neutrophils % (auto) 87.2 %; Nucleated RBC # (auto) 0.07 K/uL (0-0.12); Platelet Count 213 K/uL (130-400); RDW Coefficient of Variation 21.2 % (11.5-14.5); RDW Standard Deviation 64.9 fL (36.4-46.3); Red Blood Count 5.08 M/uL (4.20-5.40); White Blood Count 6.68 K/ul (4.8-10.8)
[2022-09-29] MEDS: INSULIN ASPART PER UNIT SC SCH ×4 (07:59→21:14)
[2022-09-29 08:24] LABS: Anisocytosis Present; Polychromasia 1+
[2022-09-29] MEDS: acetaZOLAMIDE 250 MG TAB PO SCH ×2 (08:24→16:59)
[2022-09-29] MEDS: CETIRIZINE HCL 10 MG TABLET PO SCH (08:24)
[2022-09-29] MEDS: COLESTIPOL HCL 1 GM TAB PO SCH ×4 (08:25→19:57)
[2022-09-29] MEDS: CYANOCOBALAMIN (B-12) 500 MCG TABLET PO SCH (08:25)
[2022-09-29] MEDS: CITALOPRAM 20 MG TAB PO SCH (08:25)
[2022-09-29] MEDS: FLUTICASONE/VILANTEROL 100/25MCG 14 PUFFS/INHALER INH SCH (08:26)
[2022-09-29] MEDS: FLUTICASONE PROPIONATE NA SPR 16 GM BTL SCH ×2 (08:26→16:59)
[2022-09-29] MEDS: METOPROLOL TARTRATE 25 MG TAB PO SCH ×2 (08:27→19:57)
[2022-09-29] MEDS: NYSTATIN SUSP 500,000 U/5 ML UDC PO SCH ×4 (08:27→19:58)
[2022-09-29 08:28] LABS: BUN Creatinine Ratio 19.2 (10-20); Calcium 9.2 mg/dl (8.5-10.1); Creatinine Clr Calc Pharmacy 65.1 ml/min; Est GFR (Non-African American) 60.4 ml/min; Magnesium 2.1 mg/dl (1.7-2.4); Potassium 5.1 mmol/L (3.5-5.1); Troponin I High Sensitivity 62.5 pg/ml (0-14)
[2022-09-29] MEDS: SACCHAROMYCES BOULARDII 250 MG CAP PO SCH ×2 (08:28→17:01)
[2022-09-29] MEDS: predniSONE 10 MG TABLET PO SCH (08:30)
--- NOTE | 2022-09-29 08:33 | Pulmonary Consultation ---
Date of Consultation September 29, 2022 Assessment & Plan (1) Acute and chronic respiratory failure with hypoxia: (2) Fibrotic lung diseases: (3) Interstitial lung disease: (4) Pulmonary hypertension: Plan Unfortunate 57-year-old female presenting with acute on chronic hypoxic respi ratory failure in the setting of interstitial lung disease and significant pulmonary hypertension. 1. Acute on chronic hypoxic respiratory failure/interstitial lung disease/pulmonary fibrosis/pulmonary hypertension: * Patient saturating well on current BiPAP settings at 60% FiO2. She can likely be transitioned to high flow nasal cannula for comfort which she has tolerated well in the past. * Continue with her diuresis regime as she has done well with this combination and achieved a better fluid balance than she has previously. * I did restart the patient's home Lasix dosing of 80 mg twice daily. * She is without wheezing and has persistent bibasilar Rales which is consistent with her underlying lung pathology and with previous exams. * Will change her steroids from 40 mg IV to 10 mg p.o. In the outpatient setting, we have been working on tapering down her steroids. Most recently she was on 7.5 mg p.o. daily. I think it is reasonable to place her on 10 mg for now and continue the taper when appropriate. * The patient did have recent outpatient pulmonary visit on 09/23 during which she was referred to [facility]'s pulmonary hypertension clinic. She reportedly has an appointment in November. Unfortunately, I do not feel that this patient is going to be able to do well enough in the outpatient environment to make it to an outpatient appointment. She certainly does warrant further evaluation of her pulmonary hypertension including RIGHT-sided heart catheterization and potential treatment modalities that are unavailable at this institution. I did communicate this with primary hospitalist service and discussed that it would be the patient's best interest to work on transfer to [facility] for further evaluation as this would likely be to the patient's benefit at this point. * As we have seen her and treated her multiple times in the past, we will continue to aid in management including volume optimization and supplemental oxygen needs. That being said, I will reiterate that definitive management and evaluation for the patient is warranted at this time and would recommend attempting to transfer the patient when able for higher level evaluation of her underlying pulmonary hypertension and pulmonary fibrosis. Thank you for allowing us to participate in the care of this pleasant patient. Please feel free to reach out to us with any concerns Supervising Physician Co-Signing Physician Notes Agree with assessment plan as noted. The patient is well-known to the pulmonary service from multiple hospitalization periods she appears to be failing outpatient therapy. She has been unable to remain out of the hospital long enough to get established with a pulmonary hypertension center of excellence to undergo right heart catheterization and assessment for vasodilators. In addition, she likely requires evaluation of her fibrotic lung disease. We will increase her prednisone back to 10 mg a day. Continue diuresis. Recommend contacting [facility] to see whether or not the patient can be evaluated there as an inpatient to facilitate her work-up as we have been unable to keep her healthy enough long enough to be evaluated in the outpatient setting. We will continue attempts to optimize the patient for now. Patient is critically ill. Significant possibility of clinical deterioration. A total of 60 minutes was spent with the PA coordinating care History of Present Illness Reason for Consultation: Acute on chronic hypoxic respiratory failure Requesting Physician: Dr. Alegria Attending Physician: Maico Lantigua MD History of Present Illness Patient is an unfortunate 57-year-old female with a significant past medical history of diabetes, hyperlipidemia, and fibrotic lung disease status post COVID-19 infection in April 2021. She has had extended stay at this institution on multiple occasions recently related to ongoing hypoxemia in the setting of pulmonary fibrosis, volume overload, and severe pulmonary hypertension. Previously, she had been treated at the outpatient [facility] clinic, however with recent hospitalizations, she has transition to the [facility] pulmonary practice where she was recently seen on 09/23/2022. Unfortunately, after her most recent hospitalization, the patient is [facility] She remains on 4 L nasal cannula at all times. She reports that her weight and edema has been well controlled with acetazolamide and her Lasix dosing. Unfortunately, the patient did develop symptoms of shortness of breath yesterday which prompted visit to the emergency department. The patient did receive Ativan as well as steroids and was placed on BiPAP. She has been tolerating BiPAP in the emergency department which she has been unable to do previously. She reports feeling much better with her breathing at this time. She denies any fevers, chills, new cough, sputum production, nausea, vomiting, or abdominal discomfort. Allergies Allergy/AdvReac Type Severity Reaction Status Date / Time No Known Allergies Allergy Verified 09/29/22 01:10 Home Medications Medication Instructions Recorded Confirmed Type Oxygen Home #1 ea 09/02/22 Rx acetazolamide 250 mg tablet 1,000 mg PO BID #240 tabs 09/02/22 09/29/22 Rx albuterol sulfate 2.5 mg/3 mL 2.5 mg (3 mL) NEB Q6R PRN 09/02/22 09/29/22 Rx (0.083 %) solution for nebulization shortness of breath or wheezing #90 mL benzonatate 100 mg capsule 100 mg PO TID PRN Cough #90 caps 09/02/22 09/29/22 Rx blood sugar diagnostic (OneTouch #100 ea 09/02/22 Rx Verio test strips) blood-glucose meter (OneTouch #1 ea 09/02/22 Rx Verio Meter) cetirizine 10 mg tablet 10 mg PO QAM #30 tabs 09/02/22 09/29/22 Rx codeine 10 mg-guaifenesin 100 mg/5 10 ml PO Q6H PRN Cough #120 mL 09/02/22 09/29/22 Rx mL oral liquid (Guaifenesin AC) cyanocobalamin (vitamin B-12) 1,000 mcg PO DAILY #30 tabs 09/02/22 09/29/22 Rx 1,000 mcg tablet (Vitamin B-12) furosemide 80 mg tablet 80 mg PO BID17 #60 tabs 09/02/22 09/29/22 Rx glipizide 10 mg tablet, extended 10 mg PO QDD #30 tabs 09/02/22 09/29/22 Rx release 24 hr insulin glargine 100 unit/mL (3 10 unit (0.1 mL) subcut DAILY #15 09/02/22 09/29/22 Rx mL) subcutaneous pen (Lantus mL Solostar U-100 Insulin) lancets 33 gauge (OneTouch Delica #100 ea 09/02/22 Rx Lancets) levothyroxine 88 mcg tablet 88 mcg PO DAILYBB #30 tabs 09/02/22 09/29/22 Rx metoprolol tartrate 25 mg tablet 25 mg PO BID #60 tabs 09/02/22 09/29/22 Rx pen needle, diabetic 32 gauge x #100 ea 09/02/22 Rx 5/32" (Pen Needle) rosuvastatin 5 mg tablet 5 mg PO 2XWK #10 tabs 09/02/22 09/29/22 Rx Saccharomyces boulardii 250 mg 250 mg PO BID17 09/29/22 09/29/22 History capsule (Florastor) acetaminophen 325 mg tablet 650 mg PO Q6H PRN FEVER/PAIN 09/29/22 09/29/22 History (Tylenol) albuterol sulfate 90 mcg/actuation 2 puff inhalation Q6H PRN 09/29/22 09/29/22 History aerosol inhaler Wheezing/SOB budesonide-formoterol HFA 80 1 inh inhalation BID17 09/29/22 09/29/22 History mcg-4.5 mcg/actuation aerosol inhaler (Symbicort) citalopram 20 mg tablet (Celexa) 20 mg PO DAILY 09/29/22 09/29/22 History colestipol 1 gram tablet 1 g PO QID 09/29/22 09/29/22 History ergocalciferol (vitamin D2) 1,250 50,000 unit PO WK 09/29/22 09/29/22 History mcg (50,000 unit) capsule fluticasone propionate 50 2 spray NA BID17 09/29/22 09/29/22 History mcg/actuation nasal spray,suspension loperamide 2 mg capsule 2 mg PO Q3H PRN Diarrhea 09/29/22 09/29/22 History lorazepam 0.5 mg tablet 0.5 mg PO BID PRN Anxiety 09/29/22 09/29/22 History nystatin 100,000 unit/mL oral 5 ml PO QID 09/29/22 09/29/22 History suspension potassium chloride 20 mEq 40 meq PO BID17 09/29/22 09/29/22 History tablet,extended release(part/cryst) prednisone 5 mg tablet 7.5 mg PO DAILY 09/29/22 09/29/22 History Patient History Medical History Chronic respiratory failure with hypoxia 3L at baseline, 4L w/ exertion as of 05/2022 Cor pulmonale Diabetes Fibrotic lung diseases Hypersomnolence Hyponatremia Interstitial lung disease likeliest post Covid fibrosis; follows w/ Dr Cerna [facility] Obesity (BMI 30-39.9) Pneumonia due to COVID-19 virus Pulmonary hypertension Type 2 diabetes mellitus Family History Other Family history non-contributory Social History Smoking Status: Former smoker Hx Alcohol Use: No Hx Substance Use: No Preferred Language: Persian Communication Ability: Effective [employer] Utility Supervisor Required: No Beliefs That Will Affect Care: Spiritual marital status: / Current Living Situation: Family Current Living Situation Comment: with son How many Children do You have: 1 Other Information That Helps Us Care for You: No Feels Safe at Home: Yes Safety Concerns: Feels Safe At This Time Assistive Devices: Glasses and Walker Review of Systems Review of Systems: A complete 10 point review of systems was reviewed with the patient with pertinent positives and negatives as per history of present illness. All else were negative. Physical Exam Physical Exam: VITAL SIGNS - Vital signs and nursing notes were reviewed. GENERAL - 57-year-old female appearing her stated age who is in no acute distress. Communicates well with provider and answers questions appropriately. HEAD - NC/AT. EYES - PERRL with EOMI bilaterally. Sclera anicteric. EARS - No deformities of external structures noted on gross examination bilaterally. NOSE - Midline and without cyanosis. No epistaxis or purulent drainage noted. MOUTH/OROPHARYNX - Without perioral cyanosis. Buccal mucosa pink and moist. NECK - Neck with FROM. LUNGS - Utilizing BiPAP currently. No distress. Decreased air entry into the lungs. Bibasilar rales noted. CARDIAC - RRR with S1/S2. No murmur, rubs, or gallops appreciated. No reproducible tenderness to palpation appreciated over the anterior chest wall. ABDOMEN - Abdominal contour obese without pulsations or visible masses. BS no rmoactive all four quadrants. No tenderness, palpable masses, hepatosplenomegaly, or ascites noted. EXTREMITIES - No clubbing or peripheral cyanosis. Slight pretibial edema present. +3/5 radial and dorsalis pedis pulses palpated throughout. +5/5 strength noted in UE/LE bilaterally. NEUROLOGIC - Cranial nerves II through XII grossly intact. PSYCH - A&Ox3 and cooperates fully with examiner. Pt is very pleasant and interacts well with examiner. Results & Data Results & Data ([facility]) Vital Signs (Past 12 Hours) Vital Signs Temp Pulse Pulse Resp BP BP Pulse Ox 09/29/22 08:02 87 09/29/22 07:24 09/29/22 07:24 86 28 H 100/81 92 09/29/22 07:16 85 32 H 90 09/29/22 07:06 86 35 H 09/29/22 05:13 84 09/29/22 04:44 83 24 115/85 94 09/29/22 04:06 84 34 H 96 09/29/22 01:24 96 09/29/22 01:24 80 24 93 09/29/22 01:21 84 39 H 94 09/29/22 01:09 81 09/29/22 01:17 82 39 H 94 09/29/22 01:11 88 L 09/29/22 01:11 09/29/22 01:11 36.7 C 82 24 106/68 88 L Pulse Ox O2 Del Method O2 Del Method O2 Flow Rate FiO2 09/29/22 08:02 09/29/22 07:24 92 BiPAP 09/29/22 07:24 BiPAP 09/29/22 07:16 60 09/29/22 07:06 Nasal Cannula 5 09/29/22 05:13 09/29/22 04:44 CPAP 09/29/22 04:06 70 09/29/22 01:24 CPAP 09/29/22 01:24 CPAP 09/29/22 01:21 70 09/29/22 01:09 09/29/22 01:17 CPAP 70 09/29/22 01:11 Non-rebreather 15 09/29/22 01:11 Non-rebreather 15 09/29/22 01:11 Non-rebreather 15 PG Care Time/CCT Total # of Minutes Spent Total Time Spent with Patient: Total time spent is greater than 50% in coordination of care (as documented) at patient's floor/unit and/or counseling patient: Coding Level of Care Code Critical Care 1st 30-74 mins Diagnoses Acute and chronic respiratory failure with hypoxia J96.21 Fibrotic lung diseases J84.10 Interstitial lung disease J84.9 Pulmonary hypertension I27.20
[2022-09-29] MEDS ORDERED: PHARMACY GLYCEMIC MGMT CONSULT PRN (08:38)
[2022-09-29] MEDS ORDERED: LANTUS PER UNIT CHARGE SQ SCH (09:00)
[2022-09-29] MEDS ORDERED: methylPREDNISolone 40 MG in SYRINGE 0 ML IV SCH (09:00)
--- NOTE | 2022-09-29 09:23 | Pharmacy Report ---
Pharmacy Glycemic Short Note 2 - Date of Service September 29, 2022 - Glycemic Short BSG Results (Last 24 hours): 09/29/22 09/29/22 09/29/22 01:05 07:30 07:39 Glucose 181 H 336 H* POC Glucose 331 H* 09/29/22 07:42 Glucose POC Glucose 297 H OUTPATIENT ANTIDIABETIC REGIMEN: * Lantus 10 units SQ daily * Glipizide 5 mg PO daily with dinner * A1c = 8.1% ASSESSMENT: * Ale is a 57 yo presenting with acute on chronic hypoxic respiratory failure in the setting of interstitial lung disease and significant pulmonary hypertension. * Patient is well known to the glycemic service. During a August 2022 admission she required Lantus 5-10 units daily, correction factor 35-40 and tight carb coverage (2.5 with breakfast and 5 with other meals). She was on prednisone during this time. * Severe hyperglycemia noted with AM labs. She did receive a dose of methylprednisolone 40 mg IV in the ED and has been continued on prednisone (10 mg daily while inpatient). Will attempt to correct BSG with additional Novolog. I am hesitant to increase basal insulin given recent admission data and the fact that steroid induced hyperglycemia from methylprednisolone should be wearing off. PLAN FOR INPATIENT GLYCEMIC CONTROL: * Hold outpatient oral diabetes medications * Basal insulin * Continue Lantus 10 units SQ daily - reassess 09/29/22 * Bolus insulin * NovoLog per scale ACHS or Q6hrs while NPO * Goal Range: Low 120 mg/dL - High 150 mg/dL * Correction Factor: 30 mg/dL/unit * Nutritional / Prandial insulin per carb ratio of 1 unit per 5 grams CHO consumed
[2022-09-29] MEDS: FUROSEMIDE 80 MG TAB PO SCH ×2 (09:47→17:01)
--- NOTE | 2022-09-29 10:04 | Electrocardiogram Report ---
Test Reason : Blood Pressure : / mmHG Vent. Rate : 082 BPM Atrial Rate : 082 BPM P-R Int : 158 ms QRS Dur : 070 ms QT Int : 364 ms P-R-T Axes : 043 117 -29 degrees QTc Int : 425 ms Normal sinus rhythm with sinus arrhythmia Right atrial enlargement Right axis deviation Right ventricular hypertrophy with repolarization abnormality T wave abnormality, consider inferolateral ischemia Abnormal ECG When compared with ECG of 17-AUG-2022 05:20, Questionable change in QRS duration Confirmed by Tex Roman ([id number]) on 09/29/2022 10:03:50 AM Referred By: [facility], [place] Confirmed By:Eliot Roman
[2022-09-29 11:34] LABS: Estimated Average Glucose 186 mg/dl; Hemoglobin A1C 8.1 % (4.5-5.6)
[2022-09-29] MEDS ORDERED: PNEUMOCOCCAL POLYSACCHARIDES 25 MCG/0.5 ML VIAL/SYR IM ONE (14:12)
[2022-09-29] MEDS ORDERED: INSULIN ASPART PER UNIT SC ONE (15:15)
--- NOTE | 2022-09-29 16:15 | Communication Note ---
Date of Service: September 29, 2022 57-year-old lady with PMH of chronic hypoxemic respiratory failure on 4 L oxygen at home, interstitial lung disease thought to be secondary to COVID pulmonary hypertension, T2DM, hyponatremia, HTN, immunosuppression due to chronic steroid use presented to the hospital 09/29 from [facility] with shortness of breath. Of note, patient was recently evaluated by coffee roaster on 09/23/22 and was recommended to start on low-dose Symbicort twice daily and was also trying to wean her off of his steroid with 2.5 mg every 7 days until she is off of prednis one completely, currently at 7.5 Mg daily dose. She was also recommended to be evaluated at [facility] for transplant candidacy and pulmonary hypertension and also recommended sleep study. Patient came in with progressive worsening of her shortness of breath since last 4 to 5 days IRONER MACHINE, reports baseline cough with clear sputum, denies any fever or chills or other acute illness, reports decreased appetite since about the same duration. Respiratory BioFire panel was negative at presentation. She is being managed for the following: Acute on chronic respiratory failure: Patient was initially put on BiPAP, currently on 40 L oxygen via HFNC. Pulmonology evaluated, on prednisone 10 Mg daily and recommends transfer to tertiary center for inpatient evaluation of her pulmonary hypertension. Approximately 1 hour were spent with the transfer process by calling [facility] line and finally patient was accepted at [facility] to ICU admission. Accepting doctor is an mechanical technician Dr. Du. Admitting labs and imaging reviewed. Acute on chronic hyponatremia: Baseline sodium level around 130-133, admitting sodium of 127, likely secondary to decreased p.o. intake for 4 to 5 days IRONER MACHINE. Low-sodium diet, continue to monitor. Increase protein intake. Follow-up sodium level in AM. C/w home lasix. Chronic troponin elevation: Patient with no chest pain, patient has chronically elevated troponin likely due to underlying respiratory condition. Continue telemetry. T2DM: pt on steroid, glycemic pharmacy on board. On examination, patient was on 40 L oxygen via HFNC, bilateral crackles, no BLE edema. For further details on the patient, refer to today's H&P note. Dispo: transfer consent obtained, signed and put in chart. Dr. Du, mechanical technician is accepting physician. to [facility].
[2022-09-29 16:46] LABS: BUN Creatinine Ratio 25.6 (10-20); Calcium 9.3 mg/dl (8.5-10.1); Creatinine Clr Calc Pharmacy 80.4 ml/min; Est GFR (African American) 93.4 ml/min; Est GFR (Non-African American) 80.6 ml/min; Potassium 4.1 mmol/L (3.5-5.1)
[2022-09-30] MEDS: INSULIN ASPART PER UNIT SC SCH ×7 (00:18→17:00)
[2022-09-30] MEDS: LEVOTHYROXINE SODIUM 88 MCG TABLET PO SCH (05:42)
[2022-09-30 06:37] LABS: Hematocrit (blood only) 37.9 % (37.0-47.0); Hemoglobin 12.5 g/dl (12.0-16.0); Mean Corpuscular Hemoglobin 27.9 pg (25.0-34.0); Mean Corpuscular Volume 84.6 fL (80.0-100.0); Mean Platelet Volume 10.7 fL (9.4-12.4); Nucleated RBC # (auto) 0.05 K/uL (0-0.12); Nucleated RBC % (auto) 0.7 %; Platelet Count 219 K/uL (130-400); RDW Coefficient of Variation 20.7 % (11.5-14.5); Red Blood Count 4.48 M/uL (4.20-5.40); White Blood Count 7.13 K/ul (4.8-10.8)
[2022-09-30 06:38] LABS: BUN Creatinine Ratio 23.3 (10-20); Calcium 9.1 mg/dl (8.5-10.1); Creatinine Clr Calc Pharmacy 90.3 ml/min; Est GFR (African American) 107.5 ml/min; Est GFR (Non-African American) 92.7 ml/min; Magnesium 2.1 mg/dl (1.7-2.4); Phosphorus 4.4 mg/dl (2.5-4.9); Potassium 3.9 mmol/L (3.5-5.1)
[2022-09-30] MEDS: ALBUT/IPRATROP 3MG/0.5MG NEB 3 ML VIAL NEB SCH ×4 (06:58→19:28)
--- NOTE | 2022-09-30 08:07 | Pulmonology Progress Note ---
Date of Service September 30, 2022 Assessment & Plan (1) Acute and chronic respiratory failure with hypoxia: (2) Fibrotic lung diseases: (3) Interstitial lung disease: (4) Pulmonary hypertension: Plan Impression: 57-year-old female with fibrotic lung disease secondary to COVID in fections as well as secondary pulmonary hypertension. She likely also has untreated sleep disordered breathing. 1. Acute on chronic hypoxic respiratory failure/interstitial lung disease/pulmonary fibrosis/pulmonary hypertension: Patient appears to be slightly improved currently. Continue wean oxygen to maintain oxygen saturations around 90%. Due to the severity and complexity the patient's il lnesses, she is been referred to a tertiary center and has been accepted at [facility] for additional evaluation of pulmonary hypertension and interstitial lung disease. Unfortunately, we have been unable to do this as an outpatient due to the patient requiring frequent hospitalization so I think inpatient evaluation may expedite her work-up and evaluation. We will continue diuretics. Continue steroids at current dose (10 mg a day). Diuresis as tolerated. 2. Sleep disordered breathing: Continue nocturnal noninvasive positive pressure ventilation. Outpatient sleep study recommended. We will continue to follow with you. Hopefully the patient will be able to be transferred to a tertiary care facility in the near future Admission and Anticipated Discharge Date Admission Date: September 29, 2022 Subjective Patient seen and examined. MRI reviewed. Discussed with bedside nurse. The patient reports that she is feeling better. She continues to use high flow. She is tolerating a diet. She denies any chest pain. She is coughing but not really expectorating any phlegm. She has not noted any significant lower extremity edema. Review of Systems Review of Systems: All systems reviewed & are unremarkable except as noted in Subjective Physical Exam Constitutional: WD/WN, vitals as above Neck: trachea midline, no thyromegaly Respiratory: no respiratory distress, no labored breathing, no cough and not tachypneic Auscultation: + crackles; no wheezes Cardiovascular: Rate/Rhythm: regular rate Heart Sounds: normal S1 and normal S2; no murmur Extremities: + edema Gastrointestinal (Abdomen): normal bowel sounds, soft, nontender, no hepatosplenomegaly Musculoskeletal: Extremities: extremities normal to inspection Skin: no rashes, warm and dry Neurologic: Nonfocal exam Lymphatic: no cervical lymphadenopathy Results & Data Results & Data ([facility]) Vital Signs (Past 12 Hours) Vital Signs Temp Pulse Pulse Resp BP BP Pulse Ox 09/30/22 07:18 36.5 C 67 28 H 111/81 95 09/30/22 06:58 65 22 92 09/30/22 04:29 94 09/30/22 04:20 81 L 09/30/22 00:00 37.0 C 09/30/22 04:12 107/72 09/30/22 04:12 66 24 94 09/30/22 04:00 66 23 91 09/30/22 04:00 37.0 C 09/30/22 03:36 71 20 92 09/30/22 00:00 77 20 96 09/30/22 00:00 114/73 09/29/22 23:00 76 22 99 09/29/22 23:43 76 09/29/22 23:34 97 09/29/22 23:30 85 22 99 O2 Del Method O2 Flow Rate FiO2 09/30/22 07:18 High Flow Nasal Cannula 35 09/30/22 06:58 High Flow Nasal Cannula 35 90 09/30/22 04:29 35 70 09/30/22 04:20 High Flow Nasal Cannula 35 55 09/30/22 00:00 09/30/22 04:12 09/30/22 04:12 High Flow Nasal Cannula 35 55 09/30/22 04:00 09/30/22 04:00 09/30/22 03:36 High Flow Nasal Cannula 35 50 09/30/22 00:00 High Flow Nasal Cannula 35 60 09/30/22 00:00 09/29/22 23:00 09/29/22 23:43 09/29/22 23:34 35 50 09/29/22 23:30 High Flow Nasal Cannula 40 70 Critical Care Results & Data Vital Signs (Past 12 Hours) Vital Signs Temp Pulse Pulse Resp BP BP Pulse Ox 09/30/22 07:18 36.5 C 67 28 H 111/81 95 09/30/22 06:58 65 22 92 09/30/22 04:29 94 09/30/22 04:20 81 L 09/30/22 00:00 37.0 C 09/30/22 04:12 107/72 09/30/22 04:12 66 24 94 09/30/22 04:00 66 23 91 09/30/22 04:00 37.0 C 09/30/22 03:36 71 20 92 09/30/22 00:00 77 20 96 09/30/22 00:00 114/73 09/29/22 23:00 76 22 99 09/29/22 23:43 76 09/29/22 23:34 97 09/29/22 23:30 85 22 99 O2 Del Method O2 Flow Rate FiO2 09/30/22 07:18 High Flow Nasal Cannula 35 09/30/22 06:58 High Flow Nasal Cannula 35 90 09/30/22 04:29 35 70 09/30/22 04:20 High Flow Nasal Cannula 35 55 09/30/22 00:00 09/30/22 04:12 09/30/22 04:12 High Flow Nasal Cannula 35 55 09/30/22 04:00 09/30/22 04:00 09/30/22 03:36 High Flow Nasal Cannula 35 50 09/30/22 00:00 High Flow Nasal Cannula 35 60 09/30/22 00:00 09/29/22 23:00 09/29/22 23:43 09/29/22 23:34 35 50 09/29/22 23:30 High Flow Nasal Cannula 40 70 Lab & Micro Results (Past 24 Hours) RBC 4.48 M/uL (4.20-5.40) 09/30/22 WBC 7.13 K/ul (4.8-10.8) 09/30/22 Hgb 12.5 g/dl (12.0-16.0) 09/30/22 Hct 37.9 % (37.0-47.0) 09/30/22 MCV 84.6 fL (80.0-100.0) 09/30/22 MCH 27.9 pg (25.0-34.0) 09/30/22 MCHC 33.0 g/dL (32.0-36.0) 09/30/22 RDW Standard Deviation 63.0 fL (36.4-46.3) H 09/30/22 RDW Coefficient of Variation 20.7 % (11.5-14.5) H 09/30/22 Plt Count 219 K/uL (130-400) 09/30/22 MPV 10.7 fL (9.4-12.4) 09/30/22 Nucleated Red Blood Cells % (auto) 0.7 % 09/30 Nucleated RBC Absolute Count (auto) 0.05 K/uL (0-0.12) 09/14 03/05 Na 128 mmol/L (136-145) L 09/30/22 K 3.9 mmol/L (3.5-5.1) 09/30/22 Cl 97 mmol/L (98-107) L 09/30/22 CO2 26 mmol/L (21-32) 09/30/22 Anion Gap 5 (3-11) 09/30/22 BUN 17 mg/dl (6-23) 09/30/22 Creatinine 0.73 mg/dl (0.6-1.2) 09/30/22 Estimated GFR ( Amer) 107.5 ml/min 09/30/22 Estimated GFR (Non-Af Amer) 92.7 ml/min 09/30/22 BUN/Creatinine Ratio 23.3 (10-20) H 09/30/22 Glu 90 mg/dl (70-99(Fasting)) 09/30/22 Ca 9.1 mg/dl (8.5-10.1) 09/30/22 Phosphorus Level 4.4 mg/dl (2.5-4.9) 09/30/22 Mg 2.1 mg/dl (1.7-2.4) 09/30/22 05:28 Calcium Level 9.1 mg/dl (8.5-10.1) 09/30/22 05:28 I & O Totals 24 Hours 09/29/22 09/30/22 10/01/22 06:59 06:59 06:59 Output Total 1300 / 1300 Balance -1300 / -1300 Cumulative 09/29/22 00:49 thru 09/30/22 06:00 Output Total 1300 Balance -1300 RT Ventilator Mngmt (Last Documented) Ventilator Ordered Settings Respiratory Rate 28 09/30/22 07:18 Fraction of Inspired Oxygen 90 09/30/22 06:58 Ventilator - PT Measurements Respiratory Rate 28 PG Care Time/CCT Total # of Minutes Spent Total Time Spent with Patient: Total time spent is greater than 50% in coordination of care (as documented) at patient's floor/unit and/or counseling patient: Coding Level of Care Code 94421 SUB INP/OBS CARE 2/35MIN Diagnoses Acute and chronic respiratory failure with hypoxia J96.21 Fibrotic lung diseases J84.10 Interstitial lung disease J84.9 Pulmonary hypertension I27.20
[2022-09-30] MEDS: FLUTICASONE/VILANTEROL 100/25MCG 14 PUFFS/INHALER INH SCH (08:40)
[2022-09-30] MEDS: SACCHAROMYCES BOULARDII 250 MG CAP PO SCH ×2 (08:41→16:22)
[2022-09-30] MEDS: COLESTIPOL HCL 1 GM TAB PO SCH ×3 (08:41→16:22)
[2022-09-30] MEDS: acetaZOLAMIDE 250 MG TAB PO SCH ×2 (08:41→16:22)
[2022-09-30] MEDS: NYSTATIN SUSP 500,000 U/5 ML UDC PO SCH ×3 (08:41→16:22)
[2022-09-30] MEDS: FLUTICASONE PROPIONATE NA SPR 16 GM BTL SCH ×2 (08:41→16:22)
[2022-09-30] MEDS: ENOXAPARIN INJ 40 MG/0.4 ML SYR SQ SCH ×2 (08:42→18:29)
[2022-09-30] MEDS: CYANOCOBALAMIN (B-12) 500 MCG TABLET PO SCH (08:42)
[2022-09-30] MEDS: CITALOPRAM 20 MG TAB PO SCH (08:42)
[2022-09-30] MEDS: FUROSEMIDE 80 MG TAB PO SCH ×2 (08:42→16:22)
[2022-09-30] MEDS: METOPROLOL TARTRATE 25 MG TAB PO SCH (08:42)
[2022-09-30] MEDS: CETIRIZINE HCL 10 MG TABLET PO SCH (08:42)
[2022-09-30] MEDS ORDERED: LANTUS PER UNIT CHARGE SQ SCH (09:00)
[2022-09-30] MEDS: predniSONE 10 MG TABLET PO SCH (10:47)
--- NOTE | 2022-09-30 12:23 | Pharmacy Report ---
Pharmacy Glycemic Short Note 2 - Date of Service September 30, 2022 - Glycemic Short BSG Results (Last 24 hours): 09/29/22 09/29/22 09/29/22 14:15 16:12 21:11 Glucose 231 H POC Glucose 270 H 126 H 09/29/22 09/30/22 09/30/22 23:32 04:11 05:28 Glucose 90 POC Glucose 94 99 09/30/22 09/30/22 07:00 11:10 Glucose POC Glucose 89 91 OUTPATIENT ANTIDIABETIC REGIMEN: * Lantus 10 units SQ daily * Glipizide 5 mg PO daily with dinner * A1c = 8.1% ASSESSMENT: 09/30: * BSGs 742-08-63-89-91mg/dL the last 24h. Patient received 10 units of basal and 27 units of bolus insulin yesterday. * Continues on prednisone 10mg PO daily and a diet, although intake has been low * Given poor PO and rapid decline in BSG, will decrease basal to 8 units today and reassess in AM. No change to Novolog. 09/29: * Ale is a 57 yo presenting with acute on chronic hypoxic respiratory failure in the setting of interstitial lung disease and significant pulmonary hypertension. * Patient is well known to the glycemic service. During a August 2022 admission she required Lantus 5-10 units daily, correction factor 35-40 and tight carb coverage (2.5 with breakfast and 5 with other meals). She was on prednisone during this time. * Severe hyperglycemia noted with AM labs. She did receive a dose of methylprednisolone 40 mg IV in the ED and has been continued on prednisone (10 mg daily while inpatient). Will attempt to correct BSG with additional Novolog. I am hesitant to increase basal insulin given recent admission data and the fact that steroid induced hyperglycemia from methylprednisolone should be wearing off. PLAN FOR INPATIENT GLYCEMIC CONTROL: * Hold outpatient oral diabetes medications * Basal insulin * Continue Lantus 8 units SQ X 1 * Bolus insulin * NovoLog per scale ACHS or Q6hrs while NPO * Goal Range: Low 120 mg/dL - High 150 mg/dL * Correction Factor: 35 mg/dL/unit (breakfast), 40mg/dL/unit (other meals and HS) * Nutritional / Prandial insulin per carb ratio of 1 unit per 3 grams CHO (breakfast) 5 grams (lunch, dinner, and bedtime)
--- NOTE | 2022-09-30 14:39 | Hospitalist Progress Note ---
Date of Service September 30, 2022 Assessment & Plan (1) Acute and chronic respiratory failure with hypoxia: Plan 57-year-old lady with PMH of chronic hypoxemic respiratory failure on 4 L oxygen at home, interstitial lung disease thought to be secondary to COVID pulmonary hypertension, T2DM, hyponatremia, HTN, immunosuppression due to chronic steroid use presented to the hospital 09/29 from [facility] with shortness of breath. Of note, patient was recently evaluated by info print press operator on 09/23/22 and was recommended to start on low-dose Symbicort twice daily and was also trying to wean her off of his steroid with 2.5 mg every 7 days until she is off of prednisone completely, currently at 7.5 Mg daily dose at presentation time. She was also recommended to be evaluated at [facility] for transplant candidacy and pulmonary hypertension and also recommended sleep study. Patient came in with progressive worsening of her shortness of breath since last 4 to 5 days APPLICATION SPECIALIST, reports baseline cough with clear sputum, denies any fever or chills or other acute illness, reports decreased appetite since about the same duration. Respiratory BioFire panel was negative at presentation. She is being managed for the following: Acute on chronic respiratory failure:Patient was initially put on BiPAP at admission, currently on 35 L oxygen via HFNC. Pulmonology evaluated, on prednisone 10 Mg daily and recommends transfer to tertiary center for inpatient evaluation of her pulmonary hypertension. Approximately 1 hour were spent with the transfer process by calling [facility] line 09/29/22 and finally patient was accepted at [facility] to ICU admission. Accepting doctor is an panelboard operator Dr. Du. ----> In the evening the transfer was cancelled due to her insurance not being accepted at [facility]. Another process started today w/ [facility] which took 45 minutes for communication; and has been accepted at ICU level of care w/ Dr. Dugan being accepting physician. Pulmonary hypertension: August 2022 echo with severely dilated right ventricle and severely reduced right ventricular function and severely dilated right atrium. RVSP greater than 60 with EF of 65 to 70%. Patient has been recommended to establish/ follow-up with pulmonary hypertension clinic which patient has not been able to do as she deteriorated earlier than her appointment and has been hospitalized. Pulmonology on board, recommends inpatient transfer for pulmonary hypertension eval and treatment. Acute on chronic hyponatremia:Baseline sodium level around 130-133, admitting sodium of 127, likely secondary to decreased p.o. intake for 4 to 5 days APPLICATION SPECIALIST. Low-sodium diet, continue to monitor. Increase protein intake. Follow-up sodium level in AM. C/w home lasix. still w/ poor appetite, stile ripsaw operator on board. Na 128 today. Chronic troponin elevation:Patient with no chest pain, patient has chronically elevated troponin likely due to underlying respiratory condition. Continue telemetry. T2DM: pt on steroid, glycemic pharmacy on board. Dispo: transfer consent obtained, signed and put in chart. Dr. Dugan, panelboard operator is accepting physician. to [facility]. RN made aware. Admission and Anticipated Discharge Date Admission Date: September 29, 2022 Subjective Patient seen and examined at bedside as a follow-up of acute on chronic respiratory failure, acute on chronic hyponatremia, chronic troponin elevation. Patient was lying in bed, on 35 L oxygen via HFNC at 60%, NAD, reports no new acute event overnight, reports having 2 loose bowel movements [patient does have a history of chronic loose bowel movements and is on Imodium therapy], denies chest pain or palpitation or headache or dizziness, reports poor appetite, denies increasing cough or change in color of the sputum, denies acute changes in her bladder habits. Physical Exam Physical Exam: GENERAL: Alert and oriented x3. NAD, on 35 L O2 HFNC at 60% HEENT: No pallor, no icterus. Pupils equal, round and reactive to light. Oral mucosa moist. NECK: No JVD, no neck masses. HEART: S1 and S2 heard. Regular rate and rhythm. No murmur, no gallop. RESPIRATORY SYSTEM: Normal AP diameter. No accessory muscle use. No wheezing, b/l crackles. ABDOMEN: Soft, bowel sounds present, nontender, no distention. CENTRAL NERVOUS SYSTEM: No facial droop. Speech is clear. Obeys simple commands. Moves extremities. EXTREMITIES: No edema, no erythema seen. Results & Data Results & Data ([facility]) Vital Signs (Past 12 Hours) Vital Signs Temp Pulse Pulse Resp BP BP Pulse Ox 09/30/22 11:26 36.7 C 68 31 H 99/73 L 92 09/30/22 11:09 72 26 H 91 09/30/22 08:00 66 09/30/22 08:00 09/30/22 07:18 36.5 C 67 28 H 111/81 95 09/30/22 06:58 65 22 92 09/30/22 04:29 94 09/30/22 04:20 81 L 09/30/22 04:12 107/72 09/30/22 04:12 66 24 94 09/30/22 04:00 66 23 91 09/30/22 04:00 37.0 C 09/30/22 03:36 71 20 92 O2 Del Method O2 Flow Rate FiO2 09/30/22 11:26 High Flow Nasal Cannula 35 09/30/22 11:09 High Flow Nasal Cannula 35 60 09/30/22 08:00 09/30/22 08:00 High Flow Nasal Cannula 35 60 09/30/22 07:18 High Flow Nasal Cannula 35 09/30/22 06:58 High Flow Nasal Cannula 35 90 09/30/22 04:29 35 70 09/30/22 04:20 High Flow Nasal Cannula 35 55 09/30/22 04:12 09/30/22 04:12 High Flow Nasal Cannula 35 55 09/30/22 04:00 09/30/22 04:00 09/30/22 03:36 High Flow Nasal Cannula 35 50
--- NOTE | 2022-09-30 16:00 | Discharge Summary ---
Date of Service September 30, 2022 Admission HPI Per Admitting Provider DATE OF ADMISSION: 09/29/2022. CHIEF COMPLAINT: Shortness of breath. 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 The patient recently saw pulmonary on 09/23/2022, recommended to start on low-dose Symbicort twice daily and also trying to wean off steroid with 2.5 mg every 7 days until she is off prednisone completely, currently she is 7.5 mg prednisone as per the patient and to continue oxygen saturation to maintain saturation above 89% given pulmonary hypertension, and she was recommended to be evaluated at [facility] for evaluation for transplant candidacy and also to be foster luated at pulmonary hypertension clinic and also plan for sleep study. The patient says since last 4-5 days, she is getting more short of breath and progressively got worsened, that is the reason she came here. She has ongoing cough, which is similar to previous. She has sore throat. She seems to be using nystatin swish and swallow. Denies any fevers. Denies any chest pain, no nausea, no vomiting, no headache. When she stands up, she feels dizzy. No blurred visions, no runny nose, no nausea, no vomiting, no abdominal pain. She has chronic diarrhea, she is using colestipol and Imodium p.r.n. Normal bladder movements. She says she used to walk with a walker, but since last few days she is wheelchair bound. ALLERGIES: No known drug allergies. PAST MEDICAL HISTORY: As mentioned above. PAST SURGICAL HISTORY: Seems to be none. MEDICATIONS: Currently on Tylenol 650 mg p.o. q. 6 hours p.r.n., acetazolamide 1000 mg p.o. b.i.d., albuterol nebs q. 6 hours p.r.n., albuterol inhalation 2 puffs every 6 hours p.r.n., benzonatate 100 mg p.o. t.i.d. p.r.n., Symbicort 80/4.5 mcg inhalation 1 puff b.i.d., cetirizine 10 mg daily, Celexa 20 mg p.o. daily, guaifenesin AC 10 mL p.o. q. 6 hours p.r.n., colestipol 1 gram p.o. q.i.d., vitamin B12 1000 mcg p.o. daily, vitamin D 36606 units p.o. weekly, Flonase 2 sprays nasal b.i.d., Lasix 80 mg p.o. b.i.d., glipizide 10 mg p.o. daily, Lantus 10 units daily, levothyroxine 88 mcg p.o. daily, loperamide 2 mg p.o. q. 3 hours p.r.n., lorazepam 0.5 mg p.o. b.i.d. p.r.n., metoprolol tartrate 25 mg p.o. b.i.d., nystatin 5 mL p.o. q.i.d., potassium chloride 40 mEq p.o. daily, prednisone 7.5 mg p.o. daily, lovastatin 5 mg p.o. two times a week, Florastor 250 mg p.o. b.i.d., oxygen 4 liters all the time. FAMILY HISTORY: Significant for son has leukemia; father has MT, hypertension; mother has hypertension, Parkinson's disease. SOCIAL HISTORY: , currently living at [facility], quit smoking in 2007, smoked 1 pack a day for 20 years. Alcohol, generally drinks two standard drinks of alcohol per week. No drug use. REVIEW OF SYSTEMS: As per HPI. Rest of review of systems is negative. Admission Exam Per Admitting Provider GENERAL: The patient is obese, not in acute distress. VITAL SIGNS: Temperature 36.7, pulse 84, respiratory rate 24, blood pressure 106/68, oxygen 88% on nasal cannula, currently 96% on CPAP. HEENT: Pupils equal, round and reactive to light. Head atraumatic. NECK: No neck masses seen. CARDIOVASCULAR: S1 and S2 heard. Regular rate and rhythm. No murmur, no gallop. RESPIRATORY SYSTEM: Normal AP diameter. No accessory muscle use. Bilateral coarse rhonchi heard. No wheezing. ABDOMEN: Soft, bowel sounds present, nontender, no distention. CENTRAL NERVOUS SYSTEM: Alert and oriented. Speech is clear. No facial droop. Obeys simple commands. Moves extremities. EXTREMITIES: No edema, no erythema seen. Principal Diagnosis Pul HTN Acute on chronic hypoxemic respiratory failure Discharge Exam GENERAL: Alert and oriented x3. NAD, on 35 L O2 HFNC at 60% HEENT: No pallor, no icterus. Pupils equal, round and reactive to light. Oral mucosa moist. NECK: No JVD, no neck masses. HEART: S1 and S2 heard. Regular rate and rhythm. No murmur, no gallop. RESPIRATORY SYSTEM: Normal AP diameter. No accessory muscle use. No wheezing, b/l crackles. ABDOMEN: Soft, bowel sounds present, nontender, no distention. CENTRAL NERVOUS SYSTEM: No facial droop. Speech is clear. Obeys simple commands. Moves extremities. EXTREMITIES: No edema, no erythema seen. Discharge Data Allergies Allergy/AdvReac Type Severity Reaction Status Date / Time No Known Allergies Allergy Verified 09/29/22 01:10 Consultations 09/29/22 02:56 ED Decision to Admit Stat 09/29/22 08:00 Consult Pulmonology Routine Hospital Course (1) Acute and chronic respiratory failure with hypoxia: Plan 57-year-old lady with PMH of chronic hypoxemic respiratory failure on 4 L oxygen at home, interstitial lung disease thought to be secondary to COVID pulmonary hypertension, T2DM, hyponatremia, HTN, immunosuppression due to chronic steroid use presented to the hospital 09/29 from [facility] with shortness of breath. Of note, patient was recently evaluated by dry food products mixer on 09/23/22 and was recommended to start on low-dose Symbicort twice daily and was also trying to wean her off of his steroid with 2.5 mg every 7 days until she is off of prednisone completely, currently at 7.5 Mg daily dose at presentation time. She was also recommended to be evaluated at [facility] for transplant candidacy and pulmonary hypertension and also recommended sleep study. Patient came in with progressive worsening of her shortness of breath since last 4 to 5 days RADIO ADJUSTER, reports baseline cough with clear sputum, denies any fever or chills or other acute illness, reports decreased appetite since about the same duration. Respiratory BioFire panel was negative at presentation. She was managed for the following: Acute on chronic respiratory failure:Patient was initially put on BiPAP at admission, currently on 35 L oxygen via HFNC. Pulmonology evaluated, on prednisone 10 Mg daily and recommends transfer to tertiary center for inpatient evaluation of her pulmonary hypertension. Approximately 1 hour were spent with the transfer process by calling [facility] line 2 and [facility]. Accepting doctor is an port purser Dr. Du. ----> In the evening the transfer was cancelled due to her insurance not being accepted at [facility]. Another process started today w/ [facility] which took 45 minutes for communication; and has been accepted at ICU level of care w/ Dr. Dugan being accepting physician. Has gotten bed and being transferred, her images has been pushed to [facility] per toe pounder. Pulmonary hypertension: August 2022 echo with severely dilated right ventricle and severely reduced right ventricular function and severely dilated right atrium. RVSP greater than 60 with EF of 65 to 70%. Patient has been recommended to establish/ follow-up with pulmonary hypertension clinic which patient has not been able to do as she deteriorated earlier than her appointment and has been hospitalized. Pulmonology on board, recommends inpatient transfer for pulmonary hypertension eval and treatment. Acute on chronic hyponatremia:Baseline sodium level around 130-133, admitting sodium of 127, likely secondary to decreased p.o. intake for 4 to 5 days RADIO ADJUSTER. Low-sodium diet, continue to monitor. Increase protein intake. Follow-up sodium level in AM. C/w home lasix. still w/ poor appetite, stippler on board. Na 128 today. Chronic troponin elevation:Patient with no chest pain, patient has chronically elevated troponin likely due to underlying respiratory condition. Continue telemetry. T2DM: pt on steroid, glycemic pharmacy on board. Dispo: being transferred to [facility]. Home Health Attestation I certify that this patient is under my care and that I, or a physicians felix cabrera working with me, had a face to-face encounter that meets the home health [id number] encounter requirements with this patient. The encounter with the patient was in whole, or in part, for the following medical condition, which is the primary reason for home health care (list medical condition): I certify that, based on my findings, the following services are medically necessary home health services: My clinical findings support the need for the above services because: Further, I certify that my clinical findings support that this patient is homebound (i.e. absences from home require considerable and taxing effort and are for medical reasons or rastafari services or infrequently or of short duration when for other reasons) because: Certification for Home Health Services: Based on the above findings, I certify that this patient is confined to the home and needs intermittent detention care, physical therapy and/or speech therapy or continues to need occupational therapy. The patient is under my care, and I have initiated the establishment of the plan of care. This patient will be followed by a physician who will periodically review the plan of care. Total Time Total Time Spent Total Time Spent (In Minutes): 65 Discharge Plan Discharge Items Patient Disposition: Transfer Acute Care Hospital Reason For Visit: SOB Discharge Diagnosis: Acute on chronic hypoxic respiratory failure Interstitial lung disease and pulmonary fibrosis and pulmonary hypertension Activity: As commented below Activity Comment: Per [facility] recommendation Non-emergency contact: Primary Care Provider Call non-emergency contact if: you have any medication questions Follow-up/Referrals: Yohan Bena MD [Primary Care Provider] - Diet: Heart Healthy and Low Sodium (2gm) Addtl Attending Provider Instructions: You are being discharged to [facility] for inpatient evaluation of your pulmonary hypertension and follow-up on the recommendations from [facility] after their evaluation is completed. Current Inpatient Medications Acetaminophen (Acetaminophen 325 Mg Tab) 650 mg PO Q4H PRN PRN Reason: Pain or Fever Stop: 10/29/22 06:23 Acetazolamide (Acetazolamide 250 Mg Tab) 1,000 mg PO BID17 RAEANN Stop: 10/29/22 08:59 Last Admin: 09/29/22 08:24 Dose: 1,000 mg Albuterol (Albuterol Hfa 8 Gm Inhaler) 2 puffs INH Q6H PRN PRN Reason: Wheezing/SOB Stop: 10/29/22 06:23 Albuterol (Albuterol 0.083% Nebu Soln 3 Ml Vial) 2.5 mg NEB Q6R PRN; Protocol PRN Reason: shortness of breath or wheezing Stop: 10/29/22 06:23 Albuterol (Albut/Ipratrop 3mg/0.5mg Neb 3 Ml Vial) 3 ml NEB QIDR RAEANN; Protocol Stop: 10/29/22 06:59 Last Admin: 02/16/23 15:04 Dose: 3 ml Benzonatate (Benzonatate 100 Mg Capsule) 100 mg PO TID PRN PRN Reason: Cough Stop: 10/29/22 06:23 Cetirizine HCl (Cetirizine Hcl 10 Mg Tablet) 10 mg PO QAM RAEANN Stop: 10/29/22 08:59 Last Admin: 09/29/22 08:24 Dose: 10 mg Citalopram Hydrobromide (Citalopram 20 Mg Tab) 20 mg PO DAILY RAEANN Stop: 10/29/22 08:59 Last Admin: 09/29/22 08:25 Dose: 20 mg Colestipol HCl (Colestipol Hcl 1 Gm Tab) 1 gm PO QID [facility] Stop: 10/29/22 08:59 Last Admin: 09/29/22 12:25 Dose: 1 gm Cyanocobalamin (Cyanocobalamin (B-12) 500 Mcg Tablet) 1,000 mcg PO DAILY RAEANN Stop: 10/29/22 08:59 Last Admin: 09/29/22 08:25 Dose: 1,000 mcg Dextrose (Dextrose 50% 50 Ml Syringe) 25 - 50 ml IV UD PRN; Protocol PRN Reason: Hypoglycemia Protocol Stop: 10/29/22 06:23 Enoxaparin Sodium (Enoxaparin Inj 40 Mg/0.4 Ml Syr) 40 mg SQ Q12H [facility] Stop: 10/29/22 06:59 Last Admin: 09/29/22 07:23 Dose: 40 mg Ergocalciferol (Ergocalciferol 50,000 Units 1250 Mcg Cap) 50,000 units PO We@0900 [facility] Stop: 11/04/22 08:59 Fluticasone Propionate (Fluticasone Propionate Na Spr 16 Gm Btl) 2 sprays NA BID17 [facility] Stop: 10/29/22 08:59 Last Admin: 09/29/22 08:26 Dose: 2 sprays Fluticasone/Vilanterol (Fluticasone/Vilanterol 100/25mcg 14 Puffs/Inhaler) 1 puffs INH DAILY RAEANN Stop: 10/29/22 08:59 Last Admin: 09/29/22 08:26 Dose: 1 puffs Furosemide (Furosemide 80 Mg Tab) 80 mg PO BID17 [facility] Stop: 10/29/22 08:59 Last Admin: 09/29/22 09:47 Dose: 80 mg Glucagon (Glucagon For Inj 1 Mg Vial) 1 mg SQ UD PRN; Protocol PRN Reason: Hypoglycemia Protocol Stop: 10/29/22 06:23 Glucose (Glucose 10 Tab/Tube) 4 - 8 tab PO UD PRN; Protocol PRN Reason: Hypoglycemia Treatment Stop: 10/29/22 06:23 Glucose (Glucose 40% Gel 15 Gm Tube) 15 - 30 gm PO UD PRN; Protocol PRN Reason: Hypoglycemia Protocol Stop: 10/29/22 06:23 Guaifenesin/Codeine Phosphate (Guaifenesin/Codeine 200mg/20mg 10ml Udc) 10 ml PO Q6H PRN PRN Reason: Cough Stop: 10/29/22 06:23 Insulin Aspart (Insulin Aspart Per Unit) 0 units SC ACHS [facility] Stop: 09/29/22 23:59 Last Admin: 09/29/22 12:15 Dose: 11 units Insulin Aspart (Insulin Aspart Per Unit) 0 units SC 0730 [facility] Stop: 10/30/22 07:29 Insulin Aspart (Insulin Aspart Per Unit) 0 units SC 1130,1630,2100 [facility] Stop: 10/29/22 16:29 Insulin Aspart (Insulin Aspart Per Unit) 0 units SC 0000,0400 [facility] Stop: 09/30/22 04:01 Insulin Glargine (Lantus Per Unit Charge) 10 units SQ DAILY [facility] Stop: 10/29/22 08:59 Last Admin: 09/29/22 08:52 Dose: 10 units Levothyroxine Sodium (Levothyroxine Sodium 88 Mcg Tablet) 88 mcg PO DAILYBB [facility] Stop: 10/29/22 06:29 Last Admin: 09/29/22 07:23 Dose: 88 mcg Loperamide HCl (Loperamide Hcl 2 Mg Cap) 2 mg PO Q3H PRN PRN Reason: Diarrhea Stop: 10/29/22 06:23 Lorazepam (Lorazepam 0.5 Mg Tab) 0.5 mg PO BID PRN PRN Reason: Anxiety Stop: 10/29/22 06:23 Metoprolol Tartrate (Metoprolol Tartrate 25 Mg Tab) 25 mg PO BID RAEANN Stop: 10/29/22 08:59 Last Admin: 09/29/22 08:27 Dose: Not Given Miscellaneous (Carbohydrates For Hypoglycemia ) 15 - 30 gm PO UD PRN PRN Reason: Hypoglycemia Protocol Stop: 10/29/22 06:23 Miscellaneous Information (Pharmacy Glycemic Mgmt Consult) 1 each N/A UD PRN; Protocol PRN Reason: Consult Stop: 10/29/22 08:37 Nitroglycerin (Nitroglycerin Sl 0.4 Mg/Tab Tab) 0.4 mg SL UD PRN PRN Reason: Chest Pain Stop: 10/29/22 06:23 Nystatin (Nystatin Susp 500,000 U/5 Ml Udc) 5 ml PO QID [facility] Stop: 10/09/22 08:59 Last Admin: 09/29/22 12:25 Dose: 5 ml Polyethylene Glycol (Polyethylene (Miralax) 17 Gm Pack) 17 gm PO DAILY PRN PRN Reason: Constipation Stop: 10/29/22 06:23 Prednisone (Prednisone 10 Mg Tablet) 10 mg PO DAILY [facility] Stop: 10/29/22 08:59 Last Admin: 09/29/22 08:30 Dose: 10 mg Rosuvastatin Calcium (Rosuvastatin Calcium 5 Mg Tab) 5 mg PO SuWe@0900 [facility] Stop: 11/01/22 08:59 Saccharomyces Boulardii (Saccharomyces Boulardii 250 Mg Cap) 250 mg PO BID17 [facility] Stop: 10/29/22 08:59 Last Admin: 09/29/22 08:28 Dose: 250 mg Pending Studies at Discharge: No Stand-Alone Forms: [facility] Skilled Items Patient informed of condition?: Yes DNR: No Discharge Level of Care: Other Communicable Disease: No Discharge Prognosis: Other Lines: Peripheral IV Urinary Catheter: No Medications and DC Order Prescriptions: Continued cetirizine 10 mg Tablet 10 mg PO QAM Qty: 30 0RF metoprolol tartrate 25 mg Tablet 25 mg PO BID Qty: 60 0RF albuterol sulfate 2.5 mg /3 mL (0.083 %) Solution For Nebulization 2.5 mg NEB Q6R PRN (Reason: shortness of breath or wheezing) Qty: 90 1RF (DME) blood-glucose meter [OneTouch Verio Meter] Misc See Rx Instructions .Route Qty: 1 0RF Rx Instructions: As directed glipizide 10 mg tablet extended release 24hr 10 mg PO QDD Qty: 30 0RF Rx Instructions: take 30 min before a meal cyanocobalamin (vitamin B-12) [Vitamin B-12] 1,000 mcg Tablet 1,000 mcg PO DAILY Qty: 30 0RF (DME) OneTouch Verio test strips Strip See Rx Instructions .Route Qty: 100 1RF Rx Instructions: As directed levothyroxine 88 mcg tablet 88 mcg PO DAILYBB Qty: 30 0RF furosemide 80 mg Tablet 80 mg PO BID17 Qty: 60 0RF benzonatate 100 mg capsule 100 mg PO TID PRN (Reason: Cough) Qty: 90 0RF codeine-guaifenesin [Guaifenesin AC] 10-100 mg/5 mL Liquid 10 ml PO Q6H PRN (Reason: Cough) Qty: 120 0RF rosuvastatin 5 mg tablet 5 mg PO 2XWK Qty: 10 0RF Rx Instructions: TAKES ON MONDAY AND WEDNESDAYS. insulin glargine [Lantus Solostar U-100 Insulin] 100 unit/mL (3 mL) insulin pen 10 unit subcut DAILY Qty: 15 0RF (DME) pen needle, diabetic [Pen Needle] 32 gauge x 5/32" needle See Rx Instructions .Route Qty: 100 0RF Rx Instructions: As directed (DME) lancets [OneTouch Delica Lancets] 33 gauge misc See Rx Instructions .Route Qty: 100 1RF Rx Instructions: As directed (DME) Oxygen Home Liters Per Minute See Rx Instructions .Route Qty: 1 0RF Rx Instructions: 2LPM continuously acetazolamide 250 mg tablet 1,000 mg PO BID Qty: 240 0RF nystatin 100,000 unit/mL Suspension 5 ml PO QID Rx Instructions: STARTED 09/28/22 FOR 14 DAYS. swish and swallow acetaminophen [Tylenol] 325 mg Tablet 650 mg PO Q6H PRN (Reason: FEVER/PAIN) loperamide 2 mg Capsule 2 mg PO Q3H PRN (Reason: Diarrhea) prednisone 5 mg Tablet 7.5 mg PO DAILY Rx Instructions: STARTED 09/24/22 FOR 7 DAYS, THEN 5 MG X 7 DAYS, THEN 2.5 MG X 7 DAYS. citalopram [Celexa] 20 mg Tablet 20 mg PO DAILY lorazepam 0.5 mg Tablet 0.5 mg PO BID PRN (Reason: Anxiety) Rx Instructions: STARTED 2/14/23, NEEDED FOR ANXIETY FOR 14 DAYS. colestipol 1 gram Tablet 1 g PO QID Saccharomyces boulardii [Florastor] 250 mg Capsule 250 mg PO BID17 budesonide-formoterol [Symbicort] 80-4.5 mcg/actuation Hfa Aerosol Inhaler 1 inh INHALATION BID17 potassium chloride 20 mEq tablet,ER particles/crystals 40 meq PO BID17 ergocalciferol (vitamin D2) 1,250 mcg (50,000 unit) capsule 50,000 unit PO WK Rx Instructions: WEDNESDAYS albuterol sulfate 90 mcg/actuation HFA aerosol inhaler 2 puff INHALATION Q6H PRN (Reason: Wheezing/SOB) fluticasone propionate 50 mcg/actuation spray,suspension 2 spray NA BID17 Discharge Orders: Discharge Order (Routine); Ordered 09/30/22 Ordered By: Maico Lantigua Admission Data Admit Date/Time: 09/29/22 04:04 Attending Provider: Maico Lantigua Admit Provider: Brenden Alegria Primary Care Provider: Yohan Bean Other Providers: Brenden Alegria ; Bayron Almanzar
[2022-10-02] MEDS ORDERED: ROSUVASTATIN CALCIUM 5 MG TAB PO SCH (09:00)
[2022-10-05] MEDS ORDERED: ERGOCALCIFEROL 50,000 UNITS 1250 MCG CAP PO SCH (09:00)
== END 2022-09-30 20:00 | disposition short-term general hospital (02) | DRG 189 ==
LOC: ED 00:53 → SUATTDRO 04:04 → EDINP 04:04 → 1E 06:25